=== PATIENT | male | born 1960 | race Caucasian/White ===

== ENCOUNTER 2016-10-16 18:34 | Inpatient (IN) | payer MEDICARE, MEDICAID ==
[2016-10-16 18:37] VITALS: BMI 18.8
[2016-10-16] MEDS ORDERED: Morphine 4 mg/ml ISec IVP STA (19:39)
[2016-10-16 19:55] LABS: ADD MANUAL DIFF? NO
[2016-10-16 20:06] LABS: BASO # 0.03 K/mm3 (0.0-2.0); BASO % 0.5 % (0.0-3.0); EOS # 0.1 (0.0-0.7); EOS % 1.5 % (1.5-5.0); GRAN # 3.41 (1.4-6.5); GRAN % 58.1 % (50.0-68.0); HEMATOCRIT 37.8 % (42.0-52.0); LYMPH # 1.9 (1.2-3.4); LYMPH % 31.9 % (22.0-35.0); MEAN CORPUSCULAR HEMOGLOBIN 31.6 pg (25.0-35.0); MEAN CORPUSCULAR HGB CONC 34.4 g/dl (31.0-37.0); MEAN PLATELET VOLUME 9.3 fl (7.0-11.0); MONO # 0.5 (0.1-0.6); PLATELET COUNT 278 10^3/uL (120.0-450.0); RED CELL DISTRIBUTION WIDTH 13.9 % (11.5-14.5); WHITE BLOOD COUNT 5.9 10^3/ul (4.5-11.0)
[2016-10-16 20:12] LABS: INR 0.95 (0.93-1.08); PARTIAL THROMBOPLASTIN TIME 32.1 Seconds (23.7-30.8)
[2016-10-16 20:18] LABS: ALB/GLOB RATIO 1.3 (1.1-1.8); ALKALINE PHOSPHATASE 80 U/L (38-133); ALT/SGPT 32 U/L (7-56); AST/SGOT 25 U/L (15-59); BILIRUBIN,TOTAL 0.8 mg/dL (0.2-1.3); BLOOD UREA NITROGEN 15 mg/dL (7-21); CALCIUM 9.2 mg/dL (8.4-10.5); CARBON DIOXIDE 28 mmol/L (21-33); CHLORIDE 93 mmol/L (98-107); GFR AFRICAN-AMERICAN > 60; GLUCOSE,RANDOM 98 mg/dL (70-110); SODIUM 129 mmol/L (132-148); TOTAL PROTEIN 7.5 g/dL (5.8-8.3)
[2016-10-16] MEDS ORDERED: Morphine 4 mg/ml ISec IVP PRN (21:43)
--- NOTE | 2016-10-16 23:09 | CON ---
DATE: 10/16/2016 Hospital visit on emergency basis with the patient to be transferred to the intensive care unit. For Dr. Leary. CHIEF COMPLAINT: Neck pain. HISTORY OF PRESENT ILLNESS: The patient is a 56-year-old male seen in the Emergency Room, resting in a gurney with family at the bedside reporting initially 10/10 pain, now 8/10 pain to the posterior n swathi. He reports the pain has worsened in the recent past with the patient's CT scan of the neck, als o C-spine and chest, abdomen and pelvis done earlier today by Dr. Fermin showing an invasive mass to the right posterior lung apex with bony destruction of the adjacent T2-T3 vertebral body posterior el ements as well as adjacent ribs with a mass having potential for compression of the spinal cord, left adrenal mass, possible metastatic lesions with the CT of the chest showing destructive mass to right lung apex destroys a portion of the T2-T3 vertebral bodies, posterior elements and threads of the sp inal cord, severe spinal stenosis at C4-C5. With this, the patient was seen by Dr. Fermin and the ergency Room physician with analgesics given for his pain, which brought the pain from a 10/10 to an 8/10 he reports. With this, he is otherwise without loss of function. He was advised that there is suspicious findings on the scans with recommendations for the patient to be at strict bed rest until further evaluation with Dr. Dixon, neurosurgeon, and other consultants are obtained. ALLERGIES: PENICILLIN. MEDICATIONS: He denies taking any medication at this time. PAST MEDICAL HISTORY: Significant for plate placed to the lower back 8 years ago in [place] with a po sterior neck procedure in the past, approximately 9 years ago, he does not remember where with his ri ght shoulder also being repaired, status post trauma years ago. Otherwise, denies any significant [facility] medical history. 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 Denies al cohol use, with sister and family members at the bedside. Otherwise, noncontributory. REVIEW OF SYSTEMS: Essentially negative to questioning except as above. PHYSICAL EXAMINATION: VITAL SIGNS: Temperature 98.3, pulse 94, respirations 16, blood pressure 138/84 with a pulse ox 97%. HEENT: Unremarkable. NECK: Supple. HEART: Regular rate. LUNGS: Clear. ABDOMEN: Soft, nontender. EXTREMITIES: No edema. SKIN: Warm, dry and clear. NEUROLOGIC: Awake, alert, and oriented x3 with equal publication manager to the hands bilaterally and toes wiggle f reely. LABORATORY DATA: The patient's labs were done, white blood cell count of 5.9, hemoglobin 13.0, hemat ocrit 37.8, platelet count of 278,000 with a chem metabolic panel showing a sodium of 129, chloride o f 93, otherwise normal chem panel with an INR 0.9. The patient's scans were as described above. They were done earlier today and are not on his Emergen cy Room panel. One has to use selected visits for the earlier testing to be reported on the computer . ASSESSMENT: Destructive mass, right lung apex with bony destruction T2-T3 vertebral bodies, rule out cord compression, rib destruction, left adrenal mass, rule out metastatic lesion, spinal stenosis se angélica C4-5, fusion of C5-C6. Positive smoker. PLAN: After conversation with Dr. Leary, Dr. Fermin and Dr. Lima, Emergency Room physician, and Dr. Booker, neurology, will ask for a stat neurosurgical consult with Dr. Dixon. We will begin IV Decadron 4 mg IV q. 6 hours. We will also give morphine for his pain 6 mg IV q. 4 p.r.n., Pepcid 20 mg p.o. b.i.d. We will also start Lyrica 75 mg p.o. t.i.d. as per Dr. Booker's recommendation. We will also ask for consult with ____ radiation oncology along with Dr. Matthew Booth for potential b iopsy although the patient reports he does not want a biopsy done at this time. He may reconsider. We will monitor clinically and with labs. We will check a CEA value on labs drawn in the morning. P rognosis for this patient is guarded. Recommend strict bed rest until evaluation by neurosurgeon. Reagan Antoine MD cc: [phone] TT: 10/16/2016 23:08:42 Confirmation # [id number] Dictation # [id number] jn
[2016-10-17] MEDS ORDERED: Morphine 4 mg/ml ISec IVP STA (04:15)
[2016-10-17] MEDS ORDERED: Morphine 4 mg/ml ISec ONE ×2 (04:34→09:11)
--- NOTE | 2016-10-17 07:27 | RAD ---
HISTORY: pain COMPARISON: CT scan earlier same day FINDINGS: LUNGS: There is a right apical lung mass with bony destruction which was demonstrated on the earlier CT. This is more difficult to appreciate on plain film PLEURA: No significant pleural effusion identified, no pneumothorax apparent. CARDIOVASCULAR: Normal. OSSEOUS STRUCTURES: No significant abnormalities. VISUALIZED UPPER ABDOMEN: Normal. OTHER FINDINGS: None. IMPRESSION: Right apical lung mass
--- NOTE | 2016-10-17 15:05 | CON ---
DATE: 10/17/2016 REASON FOR CONSULTATION: Neck and right arm pain. HISTORY OF PRESENT ILLNESS: The patient is a 56-year-old gentleman who states that in April, he b haley to get pain in the right side of his neck. No antecedent trauma. It has progressed to involve pain and some numbness going down the right side of his back to a little below the scapular area. He is also complaining of burning going towards his shoulder and into his upper arm. He states he has numbness in the right hand as well, more towards the thumb and index finger than the little finger si de. No complaints whatsoever relative to the left arm. No complaints with his legs either. He stat es he was living in [place] at the time, and he had some x-rays or studies done. Evidently, he is now here in [facility], and this is his first time in the hospital to treat these complaints. PAST MEDICAL HISTORY: He denies. MEDICATIONS: He states the only medication he has been on is ibuprofen and tramadol, but neither is really helping his pain. ALLERGIES: HE STATES HE IS ALLERGIC TO PENICILLIN. PHYSICAL EXAMINATION: He moves his neck reasonably well, but again, complains of pain on the right s chacho. He moves both upper extremities. His sensation is decreased to touch, more so over the right i ndex finger compared to the left, and then not as much of a difference over the middle finger, and no difference whatsoever over the little finger to light touch. 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 He has decent motor strength, but gives way to resistance on th e right side. No Ventura's noted. No hyperreflexia. Good distal pulses. The system was down, but I went down to the MRI suite to review the films. There is a large paraspin al mass extending from behind C6 down to behind T2. At the C6 level, it is completely outside the po sterior elements. Towards the bottom of C7, it starts to erode into the posterior lamina and the spi nous process on the right side, and then at T1 and T2 into the pedicle and body, but no cord compress ion to speak of. He has changes from his old anterior cervical diskectomy and fusion that was done a t C5-C6. There are changes in particular at C4-C5 with what appears to be broad-based disk causing s ome flattening of the cord at that level. Some lesser changes below at the C6-C7 level. Nothing at all on the left side. IMPRESSION: Paraspinal mass that reportedly is from the apex of the lung. 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 I would think if this were strictly from antici pated changes above and below his previous fusion in the neck, then as those changes appear to be bro adly symmetrical, I would not expect him to have strictly unilateral symptoms. He appears to be comp letely unaware of the diagnosis here, so that certainly a CT-guided biopsy could be done on this mass if a diagnosis is needed, and probable treatment at this time. As the left side of the spine is com pletely intact, there are no issues at this point with instability requiring fixation and fusion. Al so, there is nothing really to decompress here surgically in terms of trying to debulk tumor or do an ything around the brachioplexus without risking further injury. We will follow along with you as needed. Thank you for allowing us to participate in the care of your patient. Elias Feng MD cc: [phone] TT: 10/17/2016 12:46:33 Confirmation # [id number] Dictation # [id number] robert
--- NOTE | 2016-10-17 15:05 | MRI ---
PROCEDURE: MR CERVICAL SPINE WITHOUT CONTRAST HISTORY: lung cancer with affected spine COMPARISON: CT scan 10/16/2016 and MRI of the thoracic spine 10/17/2016 TECHNIQUE: Multiecho multiplanar sequences were performed through the cervical spine without the use of intravenous contrast. FINDINGS: Normal lordotic curvature. Craniocervical junction unremarkable. Vertebral body heights preserved. Normal cervical cord. C2-C3: No disc herniation, spinal canal stenosis or neural foraminal narrowing. C3-C4: There is a moderate size central disc protrusion seen best on image 10 series 5 C4-C5: There is a large disc bulge in osteophytic ridge which produces a severe degree of spinal stenosis with some flattening of the cord seen on image 14 series 5. C5-C6: Fusion at this level with no foraminal or central stenosis C6-C7: Disc bulge or broad-based central protrusion. C7-T1: Mass in the right lung apex that invades the adjacent T1 and T2 vertebral bodies as well as the right-sided pedicles and lamina with invasion of the right spinal erector muscles up to the C6 level. OTHER FINDINGS: None. IMPRESSION: Severe spinal stenosis at C4-5 above the level of fusion. Moderate size central disc protrusion at C3-4. Disc bulge or broad-based protrusion at C6-7. Mass in the right lung apex that invades the adjacent T1 and T2 vertebral bodies as well as the right-sided pedicles and lamina with invasion of the right spinal erector muscles up to the C6 level.
--- NOTE | 2016-10-17 15:05 | MRI ---
PROCEDURE: MR THORACIC SPINE WITHOUT CONTRAST HISTORY: lung cancer with metsto the spine COMPARISON: CT 10/16/2016 TECHNIQUE: Multiecho multiplanar sequences were performed through the thoracic spine without the use of intravenous contrast. FINDINGS: ALIGNMENT: Normal thoracic spinal alignment. Normal thoracic kyphosis. VERTEBRA: As noted on yesterday's CT there is a destructive mass in the right lung apex that invades the T1 and T2 vertebral bodies as well as the right-sided pedicles and lamina. This obliterates the right-sided foramen at these levels. However the spinal canal is preserved and there is no evidence of cord compression. Spinal fluid can be seen around the cord. The mass also extends superiorly invading the right-sided erector muscles of the spine up to this C6 level MARROW: As above PARASPINAL SOFT TISSUES: As above CORD: Unremarkable thoracic cord. No volume loss, signal abnormality or syrinx. DISCS: No disc herniation, spinal canal stenosis, or neuroforaminal narrowing. OTHER FINDINGS: None. IMPRESSION: Mass in the right lung apex that invades the adjacent T1 and T2 vertebral bodies as well as the right-sided pedicles and lamina with invasion of the right spinal erector muscles up to the C6 level. No evidence of cord compression
--- NOTE | 2016-10-17 15:06 | CARD ---
APPROVED REPORT EKG Measurement Heart [id number] <Conclusion> Normal sinus rhythm Rightward axis Borderline ECG
[2016-10-17] MEDS ORDERED: Levalbuterol 0.63 MG/3 ML Inhal Soln UD ONE (16:17)
--- NOTE | 2016-10-17 17:59 | CON ---
DATE: 10/17/2016 REFERRING PHYSICIAN: Dr. Fermin. REASON FOR CONSULT: Chest pain. HISTORY OF PRESENT ILLNESS: This is a 56-year-old gentleman getting a diagnosis of neck tumor with r ight upper extremity pain and back pain, was told has a compression fracture. Mild cough and shortne ss of breath. Has cancer lung or neck. There is no nausea, no vomiting, no diarrhea. No leg p ain or leg swelling. PAST MEDICAL HISTORY: Cancer, chronic obstructive lung disease. SOCIAL HISTORY: Ex-smoker. Denies any alcohol use. FAMILY HISTORY: No significant family history of cardiopulmonary disease. ALLERGIES: "BENSALAN"; I guess it is PENICILLIN probably. MEDICATIONS: On arrival, he was on Decadron and morphine. REVIEW OF SYSTEMS: No headache, no rhinitis. Has neck pain, shoulder pain, right-sided chest pain. Mild cough, shortness breath. No nausea, no vomiting, no diarrhea. No leg pain or leg swelling, no dysuria. PHYSICAL EXAMINATION: GENERAL: She is lying in the bed, mild distress secondary to pain. VITAL SIGNS: Temperature is 98, heart rate is 74, respiratory rate is 20, blood pressure 125/86, pul se ox 97% on nasal cannula. HEENT: Moist mucous membranes. Small oral cavity. NECK: Supple. No JVD. LUNGS: Has a fair airflow, decreased breath sounds on the right lung. HEART: S1 and S2. ABDOMEN: Soft, nontender. No organomegaly. EXTREMITIES: There is no edema. NEUROLOGIC: Awake, alert, follows simple commands. EKG RESULTS: EKG showed normal sinus rhythm, with a right bundle branch block. LABORATORY AND X-RAY DATA: No labs or x-ray reports available at this time. IMPRESSION AND PLAN: Possibly lung cancer. Chronic obstructive lung disease. Already seen by radia tion oncology. Getting pain medication and steroids. We will add inhaled bronchodilator. Gastric p rophylaxis. Deep vein thrombosis prophylaxis. Follow up labs for the morning orders. Continue pain medication. Will follow with you. Elisabet Pelaez MD cc: [phone] TT: 10/17/2016 17:58:15 Confirmation # [id number] Dictation # [id number]
--- NOTE | 2016-10-17 19:12 | CP.PCM.CON ---
<Savanah Reed - Last Filed: 10/18/16 10:14> History of Present Illness - History of Present Illness History of Present Illness: Resident ICU Consult Note for Dr. Hugo 56 year old [place]ian male with past medical history of tobacco abuse presents to [facility] for neck and back pain. Patient was sent from PMD Dr. Fermin to ED for ongoing management. Patient reports his neck and back pain started 3 years ago and it suddenly became worse in April 2016. The pain is located at right side of the neck radiates to right shoulder and left lower back. Patient had outpatient CT cervical and CT chest/abdomen/pelvis today and found to have destructive mass in the right lung apex that destroys a portion of the T2 and T3 vertebral bodies and posterior elements as well as adjacent ribs. The extend of bony destruction has the potential for spinal cord compression. Imaging studies findings are consistent with an invasive lung malignancy. Patient also complains of having left finger tips numbness and tingling sensations. Patient had an unintentional 7 pounds weight loss in past 3 months. Denies fever, chills , shortness of breath, chest pain, abdominal pain, nausea, vomiting, urinary or fecal incontinence. PMD: Dr. Fermin PMHx: tobacco abuse Allergy: penicillin Social: admits to smoke 1 pack a day for 40 years, denies alcohol or other drug use. Lives alone. 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 absent: Chills, Weakness (d) - EENT Eyes: As Per HPI. absent: Blind Spots (d), Blurred Vision, Pain Ears: As Per HPI. absent: Dizziness Nose/Mouth/Throat: As Per HPI. absent: Nose Pain, Sinus Pain, Dry Mouth - Cardiovascular Cardiovascular: As Per HPI. absent: Chest Pain, Chest Pain with Activity, Edema , Leg Edema - Respiratory Respiratory: As Per HPI. absent: Cough, Hemoptysis - Gastrointestinal Gastrointestinal: As Per HPI. absent: Constipation, Diarrhea, Nausea, Vomiting - Genitourinary Genitourinary: As Per HPI. absent: Hematuria, Urinary Hesitance, Urinary Urgency - Musculoskeletal Musculoskeletal: As Per HPI, Back Pain, Numbness (right finger tips), Tingling ( right finger tips) Additional comments: Right sided neck, shoulder and back pain - Integumentary Integumentary: As Per HPI, Dry Skin. absent: Pruritus, Rash - Neurological Neurological: As Per HPI, Tingling. absent: Confusion, Dizziness, Focal Weakness, Syncope - Psychiatric Psychiatric: As Per HPI. absent: Depression, Irritability - Endocrine Endocrine: As Per HPI - Hematologic/Lymphatic Hematologic: As Per HPI Past Patient History - Past Social History Smoking Status: Heavy Smoker > 10 Cigarettes Daily - CARDIAC Hx Cardiac Disorders: No - PULMONARY Hx Respiratory Disorders: No - NEUROLOGICAL Hx Neurological Disorder: No Hx Alzheimer's Disease: No - HEENT Hx HEENT Problems: No - RENAL Hx Chronic Kidney Disease: No - ENDOCRINE/METABOLIC Hx Endocrine Disorders: No - HEMATOLOGICAL/ONCOLOGICAL Hx Blood Disorders: No - INTEGUMENTARY Hx Dermatological Problems: No - MUSCULOSKELETAL/RHEUMATOLOGICAL Hx Musculoskeletal Disorders: No - GASTROINTESTINAL Hx Gastrointestinal Disorders: No - PSYCHIATRIC Hx Substance Use: No - SURGICAL HISTORY Hx Surgeries: Yes Meds Allergies/Adverse Reactions: Allergies Allergy/AdvReac Type Severity Reaction Status Date / Time Penicillins Allergy ANAPHYLAXIS Verified 10/16/16 18:37 - Medications Medications: Current Medications Acetaminophen (Tylenol 325mg Tab) 650 mg PO Q6H PRN PRN Reason: Fever >100.4 F Dexamethasone (Decadron Inj) 4 mg IVP Q6H BRIA Famotidine (Pepcid) 20 mg PO BID BRIA Morphine Sulfate (Morphine) 6 mg IVP Q4H PRN PRN Reason: Pain, severe (8-10) Last Admin: 10/16/16 23:11 Dose: 6 mg Pregabalin (Lyrica) 75 mg PO TID [facility] Physical Exam - Constitutional Appears: Non-toxic, No Acute Distress, Cachectic - Head Exam Head Exam: ATRAUMATIC, NORMAL INSPECTION, NORMOCEPHALIC - Eye Exam Eye Exam: EOMI, Normal appearance, PERRL - ENT Exam ENT Exam: Mucous Membranes Moist - Neck Exam Neck exam: Positive for: Normal Inspection, Tenderness. Negative for: Full Rom (limited range of motion due to pain) - Respiratory Exam Respiratory Exam: Clear to Auscultation Bilateral, NORMAL BREATHING PATTERN. absent: Rhonchi, Wheezes, Respiratory Distress - Cardiovascular Exam Cardiovascular Exam: REGULAR RHYTHM, RRR, +S1, +S2 - GI/Abdominal Exam GI & Abdominal Exam: Normal Bowel Sounds, Soft. absent: Tenderness - Extremities Exam Extremities exam: Positive for: normal capillary refill, normal inspection, pedal pulses present Additional comments: Limited range of motion on Right UE due to pain - Back Exam Back exam: NORMAL INSPECTION - Neurological Exam Neurological exam: Alert, Oriented x3 Additional comments: No focal neurological deficits - Expanded Neurological Exam Expanded Patient oriented to: person, place, time Neuro motor strength exam: Left Upper Extremity: 5, Right Upper Extremity: 5, Left Lower Extremity: 5, Right Lower Extremity: 5 - Psychiatric Exam Psychiatric exam: Normal Affect, Normal Mood - Skin Skin Exam: Dry, Intact, Warm Results - Vital Signs Recent Vital Signs: Last Vital Signs Temp 98.3 F 10/16/16 18:37 Pulse 94 H 10/16/16 18:37 Resp 16 10/16/16 18:37 BP 138/84 10/16/16 18:37 Pulse Ox 97 10/16/16 18:37 - Labs Result Diagrams: 10/18/16 06:45 10/18/16 06:45 Labs: Laboratory Results - last 24 hr 10/17/16 10/17/16 07:09 11:13 POC Glucose (mg/dL) 165 H 113 H Assessment & Plan - Assessment and Plan (Free Text) Assessment: 56 year old male with past medical history of tobacco abuse presents with neck and back pain. Patient had outpatient CT imaging done and was found to have possible spinal cord compression secondary to lung malignancy. He was sent to the ED by PMD for ongoing management. Patient's pain is being controlled by pain medications in the ED. Patient's vitals are stable. He is also hemodynamically stable with no focal neurological deficits appreciated on physical exam. Patient is not warranted for ICU level care at this time. <Renzo Hugo Q - Last Filed: 10/19/16 00:43> Meds - Medications Medications: Current Medications Acetaminophen (Tylenol 325mg Tab) 650 mg PO Q6H PRN PRN Reason: Fever >100.4 F Albuterol/Ipratropium (Duoneb 3 Mg/0.5 Mg (3 Ml) Ud) 3 ml IH [id number] BRIA Last Admin: 10/18/16 20:20 Dose: 3 ml Bisacodyl (Dulcolax) 5 mg PO TID PRN PRN Reason: costipation Dexamethasone (Decadron Inj) 2 mg IVP Q6 [facility] Last Admin: 10/18/16 17:05 Dose: 2 mg Docusate Sodium (Colace) 100 mg PO BID [facility] Last Admin: 10/18/16 17:05 Dose: 100 mg Enoxaparin Sodium (Lovenox) 40 mg SC DAILY [facility] PRN Reason: Protocol Last Admin: 10/18/16 11:03 Dose: Not Given Fentanyl (Duragesic) 1 patch TD Q72H [facility] Last Admin: 10/18/16 12:06 Dose: 1 patch Hydromorphone HCl (Dilaudid) 2 mg IVP Q3H PRN PRN Reason: Pain, moderate (4-7) Last Admin: 10/18/16 22:46 Dose: 2 mg Lidocaine (Lidoderm) 2 ea TD DAILY [facility] Last Admin: 10/18/16 12:07 Dose: 2 ea Morphine Sulfate (Morphine) 4 mg IVP Q4H PRN PRN Reason: MOD PAIN [4-7] Last Admin: 10/18/16 06:07 Dose: 4 mg Ondansetron HCl (Zofran Inj) 4 mg IVP Q6H PRN PRN Reason: Nausea/Vomiting Pantoprazole Sodium (Protonix Ec Tab) 40 mg PO ACB [facility] Last Admin: 10/18/16 08:07 Dose: 40 mg Polyethylene Glycol (Miralax) 17 gm PO DAILY [facility] Pregabalin (Lyrica) 75 mg PO TID [facility] Last Admin: 10/18/16 17:06 Dose: 75 mg Results - Vital Signs Recent Vital Signs: Last Vital Signs Temp 98.2 F 10/18/16 16:00 Pulse 75 10/18/16 18:00 Resp 18 10/18/16 16:00 BP 108/70 10/18/16 16:00 Pulse Ox 97 10/18/16 16:00 - Labs Result Diagrams: 10/18/16 06:45 10/18/16 06:45 Labs: Laboratory Results - last 24 hr 10/18/16 10/18/16 10/18/16 06:45 06:45 06:45 WBC 5.1 RBC 4.05 Hgb 12.6 L Hct 36.9 L MCV 91.1 MCH 31.1 MCHC 34.1 RDW 14.1 Plt Count 322 MPV 9.2 Gran % 74.2 H Lymph % (Auto) 22.5 Barry % (Auto) 3.3 Eos % (Auto) 0.0 L Baso % (Auto) 0.0 Gran # 3.78 Lymph # 1.2 Barry # 0.2 Eos # 0.0 Baso # 0.00 PT 10.4 INR 0.96 Sodium 132 Potassium 4.3 Chloride 95 L Carbon Dioxide 25 Anion Gap 16 BUN 19 Creatinine 0.6 Est GFR ( Amer) > 60 Est GFR (Non-Af Amer) > 60 Random Glucose 170 H Calcium 9.2 Total Bilirubin 0.6 AST 22 ALT 27 Alkaline Phosphatase 69 Total Protein 7.3 Albumin 4.1 Globulin 3.3 Albumin/Globulin Ratio 1.2 Attending/Attestation - Attestation I have personally seen and examined this patient.: Yes I have fully participated in the care of the patient.: Yes I have reviewed all pertinent clinical information: Yes Notes (Text): 10/19/16 00:41 I agree with the above note by the resident with the following additions/ exceptions: 56 y/o male had an outpatient CT of the neck and chest done which showed a large lung mass with bony vertebral destruction and spinal stenosis. ICU was consulted to evaluate whether the patient would require admission to the ICU. He did not have any focal or gross neurological defecits despite the concern for spinal canal stenosis. He was admitted to a regular floor and did not require aggressive ICU level care. Disposition discussed with the ED attending at length labs and images reviewed personally
[2016-10-17] MEDS ORDERED: Bisacodyl 5mg EC Tab PO PRN (19:26)
[2016-10-17] MEDS: Levalbuterol 0.63 MG/3 ML Inhal Soln UD IH SCH (20:38)
--- NOTE | 2016-10-17 21:58 | PN ---
DATE: 10/17/2016 This is the patient's hospital visit on the medical floor. For Dr. Leary. SUBJECTIVE: The patient is a 56-year-old male seen sitting up in bed with the patient's pain modestl y improved with analgesics, with neurosurgical consultation appreciated with other consultants' recom mendations to be followed. With this, the patient did have an MRI of the thoracic and cervical spine and those reports will be noted. The patient had 10/10 pain to the posterior neck, which is now imp roved with an invasive mass from the lung, invading the adjacent T2-T3 vertebral bodies with the dest ructive mass suspected to be lung cancer with consideration for encroachment on the spinal canal with consult with neurosurgeon appreciated. With this, the patient is now to be evaluated for radiation along with biopsy by Dr. Matthew Booth in the near future, with IV steroids continuing, with GI prophyl axis. He appears to be in no acute distress with pain medicines helping his pain. OBJECTIVE: PHYSICAL EXAMINATION: VITAL SIGNS: Not in the computer due to computer breakdown. The computers are not available today w ith the written reports showing that his vital signs are stable. HEENT: Unremarkable. NECK: Supple with tenderness to gentle palpation on the right side. HEART: Tachy rate, regular rhythm. LUNGS: Clear. ABDOMEN: Soft, nontender. EXTREMITIES: He is able to move both extremities with equal slate trimmer. NEUROLOGIC: Awake and alert with seeing eye dog trainer equal bilateral. SKIN: Otherwise, warm, dry and clear. LABORATORY DATA: The patient's labs were done; however, they are not available at present, with his most recent blood sugar at 113. We will await the labs for tomorrow morning as the computer system i s down. The patient did have a cervical spine MRI done today. It was read as severe spinal stenosis at C4-C5 above the level of fusion, moderate sized central disk protrusion at C3-4, disk bulge of broad-based protrusion C6-C7. Mass in the right lung apex that invades the adjacent T1-T2 vertebral body as wel l as the right side pedicles and lamina with invasion of the right spinal erector muscles up to C6 le sandra. He had a thoracic spine MRI done yesterday evening. It was read as mass in the right lung apex that invades the adjacent T1-T2 vertebral bodies as well as the right- sided pedicles and lamina wit h invasion of the right spinal erector muscles up to C6 level. No evidence of cord compression. 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 PLAN: The patient is to continue present medical regimen with the patient now convinced that a biops y would be prudent for followup treatment for the patient, as he was very hesitant initially to consi suze this. However, he is now convinced after conversation with Dr. Leary and Dr. Fermin. We will also await radiation consult with with neurosurgical consult appreciated. The patient's pa in medications were adjusted by Dr. Fermin along with Protonix recommended and, therefore, we will di scontinue his famotidine for gastrointestinal prophylaxis, as his steroids continue, with the patient to continue his present medical regimen with further treatment as indicated. We will monitor clinic ally and with labs. Reagan Antoine MD cc: [phone] TT: 10/17/2016 21:58:10 Confirmation # [id number] Dictation # [id number] dasha
[2016-10-17] MEDS: Morphine 4 mg/ml ISec IVP PRN (22:11)
[2016-10-17] MEDS: Dexamethasone 4 mg/1 ml IVP SCH (22:11)
[2016-10-18] MEDS: Dexamethasone 4 mg/1 ml IVP SCH ×4 (01:07→17:05)
[2016-10-18] MEDS: Morphine 4 mg/ml ISec IVP PRN ×2 (02:37→06:07)
[2016-10-18 06:59] LABS: ADD MANUAL DIFF? NO
[2016-10-18 07:12] LABS: GRAN # 3.78 (1.4-6.5); GRAN % 74.2 % (50.0-68.0); HEMATOCRIT 36.9 % (42.0-52.0); LYMPH # 1.2 (1.2-3.4); LYMPH % 22.5 % (22.0-35.0); MEAN CELL VOLUME 91.1 fL (80.0-105.0); MEAN CORPUSCULAR HEMOGLOBIN 31.1 pg (25.0-35.0); MEAN CORPUSCULAR HGB CONC 34.1 g/dl (31.0-37.0); MEAN PLATELET VOLUME 9.2 fl (7.0-11.0); MONO # 0.2 (0.1-0.6); MONO % 3.3 % (1.0-6.0); PLATELET COUNT 322 10^3/uL (120.0-450.0); RED CELL DISTRIBUTION WIDTH 14.1 % (11.5-14.5); WHITE BLOOD COUNT 5.1 10^3/ul (4.5-11.0)
[2016-10-18 07:18] LABS: INR 0.96 (0.93-1.08)
[2016-10-18 07:36] LABS: ALB/GLOB RATIO 1.2 (1.1-1.8); ALKALINE PHOSPHATASE 69 U/L (38-133); ALT/SGPT 27 U/L (7-56); AST/SGOT 22 U/L (15-59); BILIRUBIN,TOTAL 0.6 mg/dL (0.2-1.3); BLOOD UREA NITROGEN 19 mg/dL (7-21); CALCIUM 9.2 mg/dL (8.4-10.5); CARBON DIOXIDE 25 mmol/L (21-33); CHLORIDE 95 mmol/L (98-107); GFR AFRICAN-AMERICAN > 60; GLUCOSE,RANDOM 170 mg/dL (70-110); POTASSIUM 4.3 mmol/L (3.6-5.0); SODIUM 132 mmol/L (132-148); TOTAL PROTEIN 7.3 g/dL (5.8-8.3)
[2016-10-18] MEDS: Levalbuterol 0.63 MG/3 ML Inhal Soln UD IH SCH (07:47)
[2016-10-18] MEDS: Albuterol-Ipratrop 3 mg / 0.5 (3 ml) UD IH SCH ×3 (08:00→20:20)
[2016-10-18] MEDS: Pantoprazole 40 mg EC Tab PO SCH (08:07)
--- NOTE | 2016-10-18 08:17 | HP ---
REASON FOR ADMISSION: Lung mass affecting the spinal cord. HISTORY OF PRESENT ILLNESS: This is a 56-year-old male heavy smoker, has been complaining of back pa in in the thoracic area spine that has been worse since the last 6-8 months. The patient does have c hronic neck pain. However, his thoracic spine pain seems persistent, constant, and increasing in int ensity, progressively over the last 6-8 months. The patient has been seen in the office and was eval uated. His blood work came back within normal range; however, a CT scan of the chest and the spine s hows lung mass that is invading the spine, which could cause threat to his spinal cord. The patient did complain of severe pain, could not sleep. He has been using tramadol since I saw him 2 to 3 week s ago and it was some help but not completely. The patient was evaluated in the Emergency Room and w as admitted to medical floor and Decadron was given. ALLERGIES: PENICILLIN. MEDICATIONS: He takes tramadol. Otherwise, nothing PAST MEDICAL HISTORY: As I mentioned, has some neck procedures done in the past, does not know what it is. Otherwise, no significant history except for the smoking. FAMILY HISTORY: There is a strong family history of cancer. Sister of uterine cancer. Another patient from lymphoma and there are significant three members with cancer. REVIEW OF SYSTEMS: Essentially negative except severe back pain thoracic area region and also weight loss and inability to sleep secondary to pain. PHYSICAL EXAMINATION: Please be advised the history was done on 10/16/2016. VITAL SIGNS: Temperature 98.3, heart rate 94, blood pressure 138/84, respirations 16, saturation 97% . HEAD AND NECK: Normal. No JVD, no thyromegaly. CHEST: Clear. CARDIAC: First sounds and second sounds are normal. ABDOMEN: Soft, nontender. EXTREMITIES: No edema. SPINE: There is tenderness in the mid thoracic C-spine to the lower neck area. It is significantly tender and sensitive to touch in the mid thoracic spine. LABORATORY DATA: White count of 5.9, hemoglobin 16, hematocrit 37.8, platelets 278. His chemistry s odium 129, potassium 5, chloride 93, bicarb 28, BUN 15, creatinine 0.7. Liver function test is radha l. Blood sugar 165. Albumin and globulin normal. Albumin and globulin ratio is normal. CT of the chest, abdomen and pelvis was read by Dr. Lakhani on 10/16, the date of admission, and it shows there is a large mass in the posterior right lung apex that invades the chest wall, produces bony destructi on of T2 and T3 vertebral bodies and posterior element on the right side. There is invasion of spina l canal. The mass is 5 cm x 6 cm or more, 5.3 cm x 6.3 cm mass. IMPRESSION AND PLAN: This is 56-year-old male who came in with an intractable thoracic spine pain th at CT shows a lung mass and is metastatic for stage IV lung cancer. Will admit the patient for sever e intractable pain for possible cord compressions. Will give Decadron. Will get a thoracic surgeon, Dr. Dixon. Spoke to him, he will see the patient in the morning. Will order MRI for him for further evaluation in the morning. The case has been discussed with the patient in detail. Continue also current treatment and will give him bronchodilators. Dr. Leary consult, pulmonary consult, Sam Pelaez and will follow up clinically. Continue pain medicines. CURRENT MEDICATIONS: He was getting Colace, Decadron injection 2 mg IV followed by 4 mg IV q. 6 hour s, Dulcolax, Lyrica 75 mg t.i.d., morphine 4 mg IV every 4 hours, Protonix 40 mg p.o. daily, Tylenol, Xopenex, and also will add Lovenox 40 mg subQ daily. We will continue current treatment and will fo llow up clinically. Gary Fermin MD cc: [phone] TT: 10/18/2016 03:07:18 an
--- NOTE | 2016-10-18 08:17 | PN ---
DATE: 10/17/2016 HISTORY OF PRESENT ILLNESS: The patient seen on the medical floor. He is comfortable. He is restin g better than before. He slept good and pain relief with morphine was good. Is not short of breath, no chest pain at this time. Seen by Dr. Griffin, neurosurgeon, and by oncology consult. PHYSICAL EXAMINATION: VITAL SIGNS: Temperature 97.9, heart rate 78, blood pressure 116/79, respirations 20, saturation 100 %. HEAD AND NECK: Normal. No JVD, no thyromegaly. CHEST: Clear, good entry. CARDIAC: First and second sounds are normal. ABDOMEN: Soft, nontender. EXTREMITIES: No edema. NEUROLOGIC: Normal. Thoracic spine extremely tender to touch. LABORATORY DATA: Thoracic spine MRI shows a mass in the right lung base. Revealed adjacent T1 and T 2 vertebral bodies, as well as right-sided pedicles and lamina. of right spinal muscle u p to C6 level. No evidence of cord compression. IMPRESSION AND PLAN: 1. Stage IV lung carcinoma. Will continue for now. Decadron was tapered down gradually. Will get a lung biopsy and Dr. Matthew Booth consult. The patient will definitely need radiations. Will consid er radiation oncology consult and continue pain management as it is and hold off on any heparin now f or biopsy in the morning and will continue current management for now. 2. Chronic obstructive pulmonary disease. Continue inhaled bronchodilators. Continue current treatment. Follow up clinically. Gary Fermin MD cc: [phone] TT: 10/18/2016 02:01:29 Confirmation # [id number] Dictation # [id number] mn
[2016-10-18] MEDS ORDERED: Midazolam 2 MG/2 ML VIAL ONE (09:01)
[2016-10-18] MEDS ORDERED: Sodium Chloride 0.45% 1,000 ML IV SCH (09:45)
[2016-10-18] MEDS: Enoxaparin 40 mg Syringe SC SCH (11:03)
--- NOTE | 2016-10-18 11:54 | CT ---
PROCEDURE: CT guided right lung biopsy. HISTORY: Large destructive 7 cm right lung mass invading the posterior chest wall and thoracic spine. Probable malignancy. PHYSICIAN(S): Matthew Booth MD. TECHNIQUE: The relative risks and indications of the procedure were explained to the patient and consent obtained. The patient was placed prone on the CT scanner and preliminary images through the lung apices obtained. Conscious sedation and monitoring were provided throughout the procedure by a nurse. There is is destructive 7 cm lobulated mass involving the right 8 packs and posterior chest wall. The mass invades the upper thoracic spine with epidural extension. A right posterior approach was selected and the area prepped and draped in the usual sterile fashion. 1% Xylocaine was used to anesthetize the skin and soft tissues. A 17-gauge guiding needle was advanced into the 7 cm right chest wall mass. Its position was confirmed with CT. Using coaxial technique, multiple core biopsies were obtained. The postprocedure images show no evidence of significant hemorrhage. IMPRESSION: 1. CT-guided right lung/ chest wall biopsy as described above.
[2016-10-18] MEDS: HYDROmorphone 2 mg/ml ISec IVP PRN ×4 (12:07→22:46)
[2016-10-18] MEDS: Lidocaine 5% Patch TD SCH (12:07)
--- NOTE | 2016-10-18 12:46 | RAD ---
HISTORY: rt lung bx COMPARISON: 10/16/2016 FINDINGS: LUNGS: There is a right apical lung mass. There is no evidence of pneumothorax PLEURA: No significant pleural effusion identified, no pneumothorax apparent. CARDIOVASCULAR: Normal. OSSEOUS STRUCTURES: No significant abnormalities. VISUALIZED UPPER ABDOMEN: Normal. OTHER FINDINGS: None. IMPRESSION: No evidence of pneumothorax
[2016-10-18 19:27] VITALS: RESP 18
--- NOTE | 2016-10-18 19:48 | CON ---
DATE: 10/18/2016 CHIEF COMPLAINT: Right arm pain and neck pain. HISTORY OF PRESENT ILLNESS: A 56-year-old man who is a smoker with no significant past medical histo ry with a history of COPD, came in for right-sided neck pain without any trauma, progressed to involv ing pain and some numbness going down the right side of the back to a little below the scapular area. He said the pain was more of a burning sensation of the pain and going in towards his right shoulde r and into the upper arm. He states he has numbness as well and more towards the thumb and the index finger than the little finger. He states he time had x-ray studies done and he comes to the _ ____ complaining that these symptoms are for the first time. His MRI of his cervical spine showed se angélica spinal stenosis C4-C5 above the level of fusion, moderate sized central disk protrusion at C3-C4 and disk bulge broad based protrusion at C6-C7. There is a mass in the right apex that invades the adjacent T1 and T2 vertebral bodies, as well as the right-sided pedicles with lamina with invasion of the right spinal and rectal muscles up to the level of C6. There is no cord compression. He is cur rently on Decadron and he is on Lyrica for neuropathic pain, which I recommended. He is able to move the arm, but just slightly painful. He has a lung biopsy with Dr. Matthew Booth. He is undergoing ev aluation by oncology for possible lung cancer with invasion of the brachial plexus. PAST MEDICAL HISTORY: History of COPD. He is a smoker, chronic. SOCIAL HISTORY: Smokes 1 pack of cigarettes per day. Denies any ETOH abuse or illicit drug use. FAMILY HISTORY: Noncontributory. ALLERGIES: ALLERGIC TO BICILLIN I GUESS IS PENICILLIN. CURRENT MEDICATIONS: Reviewed via nurse's reconciliation sheet. REVIEW OF SYSTEMS: A 14-point review of systems is negative except for the HPI. PHYSICAL EXAMINATION: VITAL SIGNS: Temperature of 98, pulse rate of 77, blood pressure 125/80, respiratory rate of 14, and oxygen saturation 99% on room air. GENERAL: The patient is sitting up in bed in no acute distress. HEENT: Atraumatic, normocephalic. PERRLA. Extraocular muscles intact. NECK: Supple, no JVD, no adenopathy noted. LUNGS: Clear to auscultation. No adventitious sounds. HEART: S1, S2, normal rate and rhythm. No murmurs, rubs, or gallops. ABDOMEN: Soft, nontender, nondistended. Bowel sounds present. EXTREMITIES: No clubbing, no cyanosis. Peripheral pulses 2+ felt bilaterally. NEUROLOGIC: The patient is alert, oriented to person, place, month and year. Speech is fluent, with out any errors. Cranial nerves II-XII are intact. MOTOR: Moves all extremities equally except for mild decreased hand it web development consultant of the right hand. He has decreased sensation to touch and more on the right index finger when compared to the left. Otherwise , he has decent it web development consultant strength, a little bit stronger on the left than compared to the right. Deep te ndon reflexes 2+ throughout. SENSORY: Light touch and pinprick up to the calves bilaterally are normal. Vibration is intact. Pr oprioception is intact. COORDINATION: [id number] intact. GAIT: Deferred for now. LABORATORIES: Sodium is 132, potassium , chloride of 95, carbon dioxide 25, BUN of 19, creatini ne 0.6, random glucose 170. ASSESSMENT AND PLAN: This is a 56-year-old man, chronic smoker, history of COPD. He comes in with r ight-sided neck pain radiating down to the right shoulder and right arm with paresthesias, found to h ave a paraspinal mass in the apex of the lung, as well as severe spinal stenosis C4-C5 above the leve l of effusion, moderate sized central disk protrusion at C3-C4, disk bulge broad based protrusion at C6 and C7, mass in the right lung apex of the adjacent T1-T2 vertebral body, as well as the right-madhu ed pedicles with lamina invasion of the right spinal and rectal muscle up to the level of C6. Neuros urgery is on board. Both of us agree this is likely compression of his brachial plexus along the toñito ts at the area at this time, and therefore, he is getting that cervical pain and would recommend: 1. Decadron and medical management in terms of Lyrica 75 mg p.o. t.i.d. for neuropathic pain and con tinue with the results of his lung biopsy, to go ahead with oncology management for possible lung can cer. At this time, continue with current present medical management. The patient will need oncology management and pulmonary management and likely acute rehabilitation. Once again, thank you for this consult and followup, can reconsult us if any further question needs t o be answered. Of note, he has had an old anterior cervical diskectomy and fusion at C5-C6 done prior, which changes on the MRI are reflected upon. Thank you for allowing me to participate in the patient's care. Mathew Booker MD cc: [phone] TT: 10/18/2016 19:48:31 Confirmation # [id number] Dictation # [id number] mn
--- NOTE | 2016-10-18 20:37 | PN ---
DATE: 10/18/2016 REFERRING PHYSICIAN: Dr. Fermin. SUBJECTIVE: He is lying in the bed, sleepy, arousable. Had a lung biopsy done today. Still has rib cage pain. Breathing is better. No cough, no sputum production, no nausea, no vomiting, diarrhea. N o leg pain or leg swelling. OBJECTIVE: GENERAL: No acute distress. VITAL SIGNS: Temp is 98, heart rate is 78, respiratory rate is ____, blood pressure 125/80, pulse ox 99% on room air. HEENT: Moist mucous membranes. Crowded airway. NECK: Supple. No JVD. LUNGS: Has decreased breath sounds in the right lung. HEART: S1 and S2. ABDOMEN: Soft, nontender. No organomegaly. EXTREMITIES: There is no edema. NEUROLOGIC: Sleepy, arousable, follows simple commands. MEDICATIONS: He is on Colace 100 mg ____, Decadron 2 mg q. 6 hours, Dilaudid 2 mg q. 3 hours p.r.n., Dulcolax 5 mg q. 8 hours p.r.n., DuoNeb q. 6 hours, Duragesic patch q. 72 hours, Lidoderm patch to t he affected area, Lovenox 40 mg daily, Lyrica 75 mg 3 times a day, MiraLax 17 grams daily, morphine 4 mg q. 4 hours p.r.n., Protonix 40 mg daily, IV fluid half normal saline 80 mL per hour, Tylenol p.r. n., Zofran on a p.r.n. basis. LABORATORY DATA: Shows hemoglobin 12.6, hematocrit 36.9, WBC 5.1, platelet is 322. INR 0.96. Sodiu m 132, potassium 4.3, chloride 95, bicarbonate 25, BUN 19, creatinine 0.6, glucose 170, calcium is 9. 2. AST 22, ALT 27, alkaline phosphatase is 69, albumin is 4.1. Chest x-ray done shows a right apica l lung mass. There is no evidence of pneumothorax. IMPRESSION AND PLAN: Lung mass, what seems like metastatic disease to C4-C5 causing severe stenosis, moderate sized central disk protrusion at C3-C4 disk bulge and a broad based protrusion C6-C7, mass in the lung apex that invades adjacent T1 and T2 vertebrae with right-sided pedicles in lamina with i nvasion of the right spinal ____ muscle of the C8 level, chronic obstructive lung disease, pain statu s post lung biopsy. Agree with Dr. Fermin with the present management. Continue bronchodilator and pain management, gastric prophylaxis, deep venous thrombosis prophylaxis, radiation oncology and onco logy followup. Will follow with you. Elisabet Pelaez MD cc: [phone] TT: 10/18/2016 20:36:35 Confirmation # [id number] Dictation # [id number] rn
--- NOTE | 2016-10-18 20:48 | PN ---
DATE: 10/18/2016 The patient is in room 374, bed 1. The patient just came back from a CT-guided lung biopsy earlier this morning without any complication s. PROBLEMS: This is a 56-year-old male who has been having progressively worsening upper back pain rad iating to the shoulder and scapular area that was worsening over the last 6-8 months. 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 Because th e pain was getting worse and was not responding to tramadol that he was on as an outpatient, his PMD had ordered a CT of the chest and neck, which revealed a large mass in the right upper lobe of the mike ng, which was invading the adjacent vertebral bodies and the patient was admitted to the hospital for further management with a concern that there could be invasion of the spinal cord. Since admission to the hospital, the patient had rapidly MRI of the cervical and thoracic spine and a s noted on the MRI there is a destructive mass in the right lung with invasive T1 and T2 vertebral catherine dies, as well as the right-sided pedicles and lamina, right-sided foramina at these levels; how ever, the spinal canal is preserved and there is no evidence of cord compression. Spinal fluid can b e seen around the cord. The mass also extended superiorly invading the right side of erector m uscles of the spine up to the level of C6. There is no evidence of cord compression. The cervical s pine MRI shows moderate sized disk protrusion at C3-C4. There is also severe spinal stenosis at C4-C 5 above the level of fusion and of course there is a mass in the right lung apex that is extending in to the neural foramina and causing destruction of the T1 and T2 vertebral bodies. Since admission, the patient had been started on IV Decadron and seen by radiation oncology. He was been by neurosurgery and had been seen by us in preparation for what needs to be done. Rapidly cons ultation with interventional radiology was obtained, CT-guided biopsy was done and now we are waiting for the histologic diagnosis. The patient also got 2 doses of radiation yesterday and today early i n the morning. The patient is on PPI. SUBJECTIVE: The patient is examined in bed. He tells me that the pain in the back is radiating down to the shoulder into the scapula. On a pain scale of 0-10 is at least 9, sometimes 10. He is on mo rphine 4 mg IV q.4 hours, which is not helping him. I told him that we switch around the medicines s oon, though the pain is slightly better than when he first came into the hospital. The patient denie s any history of fevers, chills, nausea or vomiting. PHYSICAL EXAMINATION: GENERAL: The patient is awake, alert, and oriented, in distress because of the pain. HEENT: Head is normocephalic, atraumatic. Conjunctivae pale. Sclerae are anicteric. Pupils are eq ually reactive to light and accommodation. Examination of the oropharynx reveals no oropharyngeal le sions. The patient is able to eat without any significant problems such as swallowing issues. NECK: Supple. There is no adenopathy. No jugular venous distention is noted. Range of movements o f the neck is limited because of the recently noted findings. No JVD is noted. LUNGS: Are relatively clear to percussion and auscultation. His expiratory phase of breathing is pr olonged. CARDIOVASCULAR: Reveals S1 and S2 to be normal. No gallop or murmurs were. ABDOMEN: Soft, nontender. Liver and spleen not palpable. No organomegaly is noted. NEUROLOGIC: Higher functions are normal. No focal deficits are seen. EXTREMITIES: The patient is able to move all 4 extremities including the upper extremities. There i s no neurologic compromise. No focal deficits are noted at this time. EKG shows normal sinus rhythm with a right bundle branch. LABORATORY DATA: From today were reviewed. White count is 5.1, hemoglobin 12.6, hematocrit 36, plat elet count is 322,000. MEDICATIONS: Were reviewed. He is on Colace 100 b.i.d. and Decadron 2 mg q.6 hours. He is on morph ine 4 mg, which is being switched over to Dilaudid. He is on Dulcolax 5 mg p.o. t.i.d. for constipat ion and DuoNeb 3 mL inhaled q.6 hours. He is on Lovenox 40 mcg subQ daily, Lyrica 75 mg t.i.d., and is on MiraLax 17 grams p.o. daily. He is on Protonix 40 mg p.o. daily, Tylenol p.r.n. and Zofran 4 m g IV q.6 hours p.r.n. for nausea and vomiting. 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 The patient has been started empirically on radiation pending biopsy. Once we have a hist ologic diagnosis of cancer, we will proceed with further management. If it is an adenocarcinoma, we will send for further molecular testing besides EGFR, gene and PD-L1, we will also check for BR AF mutation as well. If it is squamous cell carcinoma, we will also in addition be checking for EGFR and will check for PD-L1, which will be checked in the adenocarcinoma with ID as well. Depending on the molecular testing we will be able to guide further therapy. The patient definitely will need to be considered for systemic therapy in order to control the disease. I discussed in detail my findings with the patient. The patient was initially very hesitant for even to go to a biopsy. He is gradually understanding the fact that if he has to get better, he has to l isten to our recommendations. I told him that I was going to post exchange manager the pain medication from mo rphine to Dilaudid 2 mg IV q.4 hours. He has also going to get a Duragesic patch 50 mcg per hour q.7 2 hours. Along with this, he is also going to get lidocaine patches topically to the right side post eriorly over the scapula with the erector spinal muscles are being affected by tumor infiltration. H opefully, with this combination, he should feel better and his pain scale on a scale of 0-10 will go from a 9 down to a manageable level of 3 or 4. We may have to start him on systemic chemotherapy whi le he is in the hospital and I explained this fully to the patient. The patient will also need to diaz ve a venous access in order for us to continue to manage his care and treatments. I have explained a ll the findings with Dr. Fermin in great detail as well. Routine post exam instructions have been gi derek to the patient. Lizzie Leary MD cc: [id number] TT: 10/18/2016 19:09:04 Confirmation # [id number] Dictation # [id number] dn 10/18/2016 19:47:47
[2016-10-19] MEDS: HYDROmorphone 2 mg/ml ISec IVP PRN ×4 (01:55→12:37)
[2016-10-19] MEDS: Albuterol-Ipratrop 3 mg / 0.5 (3 ml) UD IH SCH ×3 (02:48→13:42)
[2016-10-19] MEDS: Dexamethasone 4 mg/1 ml IVP SCH ×3 (06:01→12:37)
[2016-10-19 08:08] VITALS: BP 106/62; PULSE 77; TEMP 98.1; O2SAT 96
[2016-10-19] MEDS ORDERED: POLYETHYLENE GLYCOL 3350 17 GM/Dose PACKET PO SCH (10:00)
[2016-10-19] MEDS: Lidocaine 5% Patch TD SCH (10:24)
[2016-10-19] MEDS: Enoxaparin 40 mg Syringe SC SCH (10:25)
[2016-10-19] MEDS: Pantoprazole 40 mg EC Tab PO SCH (10:26)
--- NOTE | 2016-10-20 08:12 | PN ---
DATE: 10/18/2016 The patient status post lung biopsy, seems doing okay. Pain controlled with current medications, Dil audid and Duragesic patch. Also, patient has some pain at the site of the biopsy, which seems helpfu l with the also Lidoderm patch. No respiratory distress, no nausea. He slept okay last night. PHYSICAL EXAMINATION: VITAL SIGNS: Temperature 98.2, heart rate 77, blood pressure 108/70, respirations 18, saturation 97% . HEAD AND NECK: Normal. No JVD, no thyromegaly. CHEST: Clear, good air entry. CARDIAC: First sounds, second sound normal. ABDOMEN: Soft, nontender. EXTREMITIES: No edema. NEUROLOGIC: Normal. SPINE: There is tenderness in the mid thoracic area. LABORATORY DATA: White count 5.1, hemoglobin 12.6, hematocrit 36.9, platelets 322. His chemistry sh owed sodium 132, potassium 4.3, chloride 95, bicarb 25, BUN 19, creatinine 0.6, blood sugar 170. Jenna er function test is normal. IMPRESSION: 1. Lung cancer with extension and spread to the bone with destructive lesions on the thoracic spine, status post lung biopsy. We will continue analgesia. Continue on Duragesic patch, Lidoderm patch a nd will follow up. 2. Chronic obstructive pulmonary disease. The patient is stable, no distress. Continue inhaled bro nchodilators. 3. The patient has some anxiety. We will continue assurance. We will reduce the Decadron since the re is no cord compression. We will reduce it from 4 mg every 6 hours to 2 mg and gradually we will t aper ti down. Continue gastrointestinal and deep vein thrombosis prophylaxis. Continue morphine, Dilaudid p.r.n. a nd patient seems doing well. Also, we will add Lyrica t.i.d. Gary Fermin MD cc: [phone] TT: 10/20/2016 08:11:07 Confirmation # [id number] Dictation # [id number] en
--- NOTE | 2016-10-20 08:27 | PN ---
DATE: 10/19/2016 REFERRING PHYSICIAN: Dr. Fermin SUBJECTIVE: The patient is lying in the bed, head at 45 degrees. Night was unremarkable. Overall, feels better, still has upper back bony pain. No cough, no sputum production. No nausea, no vomitin g, diarrhea. No leg pain or leg swelling. OBJECTIVE: GENERAL: No acute distress. VITAL SIGNS: Temp is 98, heart rate is 77, respiratory rate is 20, blood pressure 106/62, pulse ox 9 6% on room air. HEENT: Moist mucous membranes. No ulcer or oral thrush noted. NECK: Supple. No JVD. LUNGS: Have decreased sounds on the right lung. HEART: S1 and S2. ABDOMEN: Soft, nontender. No organomegaly. EXTREMITIES: There is no edema. NEUROLOGIC: Awake, alert, follows simple command. MEDICATIONS: She is on Colace 100 mg twice a day, Decadron 2 mg q. 6 hours, Dilaudid 2 mg IV q. 3 ho urs p.r.n., Dulcolax 5 mg 3 times a day p.r.n., DuoNeb q. 6 hours, Duragesic patch q. 72 hours, Lidod erm patch daily, Lovenox 40 mg subQ daily, Lyrica 75 mg 3 times a day, MiraLax 17 grams daily, morphi ne 4 mg q. 4 hours p.r.n., Protonix 40 mg daily, Tylenol p.r.n., Zofran 4 mg q. 6 hours p.r.n. LABORATORY DATA: Shows no new lab is available since yesterday. IMPRESSION AND PLAN: Lung mass, probably lung cancer with metastatic disease to the bone, mass of th e lung invading adjacent T1 and T2 vertebrae with right side pedicle and lamina with invasion of the right spinal muscles, chronic obstructive lung disease, status post lung biopsy. Continue pain manag ement, p.o. and inhaled bronchodilator. Gastric prophylaxis. Sequential compression device lo wer extremities. Oncology followup, also radiation oncology followup. Thank you and will follow with you. Elisabet Pelaez MD cc: [phone] TT: 10/20/2016 08:26:36 Confirmation # [id number] Dictation # [id number] en
--- NOTE | 2016-10-20 14:57 | DS ---
A 56-year-old male admitted with intractable spine pain. CT finding shows a lung mass 5 cm extending to his spine with destructive bony lesions. The patient has had a biopsy done, results still pendin g. Analgesia and pain control has been done. The patient seems better, stable and started on radiat ion therapy. Seen by oncology, Dr. Leary and seen by neurosurgeon, ____ . The patient seems o therwise stable. I discussed the case with the patient; stages, the prognosis and will follow up cli nically. At this time, patient will need more radiation therapy. He is generally weak. He needs mo re pain medicine, combination of therapeutic regimen that will need probably a transitional care unit for continuation of therapy. PHYSICAL EXAMINATION ON 10/19: VITAL SIGNS: Temperature 98.1, heart rate 77, blood pressure 106/62, respirations 18, saturation 96% . HEAD AND NECK: Normal. No JVD, no thyromegaly. CHEST: Clear, good entry. CARDIAC: First and second sounds are normal. ABDOMEN: Soft, nontender. EXTREMITIES: No edema. NEUROLOGIC: Normal. IMPRESSION: 1. Lung cancer, large mass 5 cm, with extension to the spine and destruction of the vertebra as per MRI, no spinal cord compression. 2. Chronic obstructive pulmonary disease. 3. Chronic intractable spine pain. PLAN: To discharge the patient to TCU for continuation of morphine, Dilaudid, Lyrica and Duragesic p atch. Also, Lidoderm patch. Continue gastrointestinal and deep vein thrombosis prophylaxis. The danny jacques also will need Decadron, continue him on bronchodilators. Will follow up clinically. Gary Fermin MD cc: [phone] TT: 10/20/2016 14:56:48 jn
== END 2016-10-19 14:47 | DRG 181 ==
LOC: ED 18:34 → ERH 20:30 → 3RSO 10-17 03:25
PROVIDERS: ADMIT Internal Medicine; ATTEND Internal Medicine
PROC: 0BBK3ZX Excision of Right Lung, Percutaneous Approach, Diagnostic (ICD-10-PCS; principal; 2016-10-18 09:00)
DX: C34.91 Malignant neoplasm of unspecified part of right bronchus or lung (principal); R64 Cachexia; Z68.1 Body mass index [BMI] 19.9 or less, adult; M48.02 Spinal stenosis, cervical region; J44.9 Chronic obstructive pulmonary disease, unspecified; M54.6 Pain in thoracic spine; F17.210 Nicotine dependence, cigarettes, uncomplicated; I45.10 Unspecified right bundle-branch block; F41.9 Anxiety disorder, unspecified; G54.0 Brachial plexus disorders; Z88.0 Allergy status to penicillin

== ENCOUNTER 2016-10-19 14:47 | Inpatient (IN) | payer OTHER, MEDICAID ==
[2016-10-19] MEDS ORDERED: Bisacodyl 5mg EC Tab PO PRN (15:29)
[2016-10-19 15:30] VITALS: BMI 19.3
[2016-10-19] MEDS: Morphine 4 mg/ml ISec IVP PRN ×2 (16:52→23:36)
[2016-10-19] MEDS: Dexamethasone 4 mg/1 ml IVP SCH ×2 (19:39→23:37)
[2016-10-19] MEDS: HYDROmorphone 2 mg/ml ISec IVP PRN (19:43)
[2016-10-19] MEDS: Albuterol-Ipratrop 3 mg / 0.5 (3 ml) UD IH SCH (20:31)
[2016-10-20] MEDS: Albuterol-Ipratrop 3 mg / 0.5 (3 ml) UD IH SCH ×4 (02:03→20:13)
[2016-10-20] MEDS: HYDROmorphone 2 mg/ml ISec IVP PRN ×4 (02:41→22:04)
[2016-10-20] MEDS: Dexamethasone 4 mg/1 ml IVP SCH ×4 (05:23→23:57)
[2016-10-20] MEDS: Enoxaparin 40 mg Syringe SC SCH (05:23)
[2016-10-20] MEDS: Morphine 4 mg/ml ISec IVP PRN ×4 (05:30→23:56)
[2016-10-20] MEDS: Pantoprazole 40 mg EC Tab PO SCH (05:43)
[2016-10-20] MEDS ORDERED: Pantoprazole 40 mg EC Tab PO SCH (07:30)
[2016-10-20] MEDS: Bisacodyl 5mg EC Tab PO SCH ×3 (09:11→17:25)
[2016-10-20] MEDS: Lidocaine 5% Patch TD SCH ×2 (09:12→10:00)
[2016-10-20] MEDS: POLYETHYLENE GLYCOL 3350 17 GM/Dose PACKET PO SCH (09:14)
[2016-10-20] MEDS ORDERED: Enoxaparin 40 mg Syringe SC SCH (10:00)
--- NOTE | 2016-10-20 18:21 | CON ---
DATE: 10/20/2016 PULMONARY CONSULTATION REFERRING PHYSICIAN: Dr. Fermin. REASON FOR CONSULT: Probably has a lung cancer with metastatic disease and chronic obstructive lung disease. HISTORY OF PRESENT ILLNESS: This is a 56-year-old gentleman who recently stopped smoking, found to h ave a right chest trauma, came into Emergency Room with upper back and mid back pain, found to have a large tumor in the chest invading the spine, seen by oncology services and oncology radiation, start ed on pain medication, bronchodilator. Presently, admitted to [facility] for continued care. PAST MEDICAL HISTORY: Obstructive lung disease, recently diagnosed with lung tumor. SOCIAL HISTORY: Denies any alcohol use, an ex-smoker. FAMILY HISTORY: No significant cardiopulmonary disease reported. ALLERGIES: QUESTIONABLE TO PENICILLIN. MEDICATIONS: He is on morphine, Decadron, Colace, Dilaudid, Dulcolax, DuoNeb, Duragesic patch, Lidod erm patch, Lovenox 40 mg subQ daily, Lyrica 50 mg 3 times a day, MiraLax 17 grams daily, Protonix 40 mg daily, Tylenol p.r.n. basis, Zofran on a p.r.n. basis. REVIEW OF SYSTEMS: No headache, no rhinitis. Has cough, shortness of breath and right-sided chest p ain and upper back pain. No nausea, no vomiting, diarrhea. No leg pain or leg swelling. PHYSICAL EXAMINATION: GENERAL: Lying in bed, in no acute distress. VITAL SIGNS: Temp is 98, heart rate is 60, respiratory rate is 18, blood pressure 109/70. HEENT: Moist mucous membrane. No ulcer or thrush noted. NECK: Supple. No JVD. LUNGS: Has decreased breath sounds on the right lung. HEART: S1 and S2. ABDOMEN: Soft, nontender. No organomegaly. EXTREMITIES: There is no edema. NEUROLOGIC: Awake, alert, follows simple commands. LABORATORY DATA: Shows hemoglobin 12.6, hematocrit 36.9, WBC 5.1. INR 0.96. Sodium 132, potassium 4.3, chloride 95, bicarbonate 25, BUN 19, creatinine 0.6, glucose 170. LFTs are okay. IMPRESSION AND PLAN: Lung mass, probably is cancer with metastatic disease to bone and tumor invadin g just in T1 and T2 vertebra with right-sided pedicle and lamina over the invasion, right spinal musc le involvement, chronic obstructive lung disease, status post lung biopsy. Continue p.o. and inhaled bronchodilators, supplemental oxygen if pulse ox less than 90%. Gastric prophylaxis. SCDs to lower extremity. Thank you and will follow with you. Elisabet Pelaez MD cc: [phone] TT: 10/20/2016 18:20:59 Confirmation # [id number] Dictation # [id number] mn
[2016-10-21] MEDS: HYDROmorphone 2 mg/ml ISec IVP PRN ×5 (02:43→21:17)
[2016-10-21] MEDS: Albuterol-Ipratrop 3 mg / 0.5 (3 ml) UD IH SCH ×4 (03:44→21:14)
[2016-10-21] MEDS: Morphine 4 mg/ml ISec IVP PRN ×3 (04:50→15:42)
[2016-10-21] MEDS: Enoxaparin 40 mg Syringe SC SCH (05:36)
[2016-10-21] MEDS: Dexamethasone 4 mg/1 ml IVP SCH ×3 (05:37→17:43)
[2016-10-21] MEDS: Pantoprazole 40 mg EC Tab PO SCH (05:37)
[2016-10-21] MEDS: oxyCODONE 5 mg Immediate Release Tab PO PRN (05:54)
[2016-10-21] MEDS: Bisacodyl 5mg EC Tab PO SCH ×3 (09:33→17:44)
[2016-10-21] MEDS: POLYETHYLENE GLYCOL 3350 17 GM/Dose PACKET PO SCH (09:33)
[2016-10-21] MEDS: Lidocaine 5% Patch TD SCH (09:33)
--- NOTE | 2016-10-21 11:48 | CP.PCM.CON ---
History of Present Illness - History of Present Illness History of Present Illness: Mr Bebeto pineda 56 y/o [place] man with a large lung mass with presumable metastatic invovlement to bone with tumor invading T1 and T2 vetebra with right sided pedicle and lamina invasion s/p IR guided lung biopsy and s/p 2-3 fractions of XRT who is currently admitted for on going pain control PMHX: COPD, lung mass Social Hx: denies ETOH, drugs; previous extensive tobacco abuse Allergies: ?[facility]erge [facility] Systems - Constitutional Constitutional: absent: Chills, Fatigue, Increased Appetite, Snoring - Cardiovascular Cardiovascular: absent: As Per HPI, Acrocyanosis, Chest Pain, Chest Pain at Rest , Chest Pain with Activity, Claudication, Diaphoresis, Dyspnea, Dyspnea on Exertion, Edema, Irregular Heart Rhythm, Pain Radiating to Arm/Neck/Jaw, Leg Edema, Leg Ulcers, Lightheadedness, Orthopnea, Palpitations, Paroxysmal Nocturnal Dyspnea, Pedal Edema, Radiating Pain, Rapid Heart Rate, Slow Heart Rate, Syncope, Other - Respiratory Respiratory: absent: As Per HPI, Cough, Dyspnea, Hemoptysis, Dyspnea on Exertion , Wheezing, Snoring, Stridor, Pain on Inspiration, Chest Congestion, Excessive Mucous Production, Change in Mucous Color, Pain with Coughing, Other - Gastrointestinal Gastrointestinal: absent: As Per HPI, Abdominal Pain, Belching, Bloating, Change in Bowel Habits, Change in Stool Character, Coffee Ground Emesis, Constipation, Cramping, Diarrhea, Dyspepsia, Dysphagia, Early Satiety, Excessive Flatus, Fecal Incontinence, Heartburn, Hematemesis, Hematochezia, Loose Stools, Melena, Nausea, Odynophagia, Temesmus, Vomiting, Other - Hematologic/Lymphatic Hematologic: absent: As Per HPI, Easy Bleeding, Easy Bruising, Lymphadenopathy, Other Past Patient History - Past Social History Smoking Status: Heavy Smoker > 10 Cigarettes Daily - CARDIAC Hx Cardiac Disorders: No - PULMONARY Hx Respiratory Disorders: No - NEUROLOGICAL Hx Neurological Disorder: No Hx Alzheimer's Disease: No - HEENT Hx HEENT Problems: No - RENAL Hx Chronic Kidney Disease: No - ENDOCRINE/METABOLIC Hx Endocrine Disorders: No - HEMATOLOGICAL/ONCOLOGICAL Hx Blood Disorders: No - INTEGUMENTARY Hx Dermatological Problems: No - MUSCULOSKELETAL/RHEUMATOLOGICAL Hx Falls: No - GASTROINTESTINAL Hx Gastrointestinal Disorders: No - GENITOURINARY/GYNECOLOGICAL Hx Reproductive Disorders: No - PSYCHIATRIC Hx Substance Use: No - SURGICAL HISTORY Hx Surgeries: Yes - ANESTHESIA Hx Anesthesia Reactions: No Hx Malignant Hyperthermia: No Meds Allergies/Adverse Reactions: Allergies Allergy/AdvReac Type Severity Reaction Status Date / Time Penicillins Allergy ANAPHYLAXIS Verified 10/19/16 15:30 - Medications Medications: Current Medications Acetaminophen (Tylenol 325mg Tab) 650 mg PO Q6H PRN; Protocol PRN Reason: Fever >100.4 F Albuterol/Ipratropium (Duoneb 3 Mg/0.5 Mg (3 Ml) Ud) 3 ml IH [id number] [facility] PRN Reason: Protocol Last Admin: 10/21/16 07:44 Dose: Not Given Bisacodyl (Dulcolax) 5 mg PO TID [facility] PRN Reason: Protocol Last Admin: 10/21/16 09:33 Dose: 5 mg Dexamethasone (Decadron Inj) 2 mg IVP Q6 [facility] PRN Reason: Protocol Last Admin: 10/21/16 05:37 Dose: 2 mg Docusate Sodium (Colace) 100 mg PO BID [facility] PRN Reason: Protocol Last Admin: 10/20/16 17:27 Dose: 100 mg Enoxaparin Sodium (Lovenox) 40 mg SC 0600 [facility] PRN Reason: Protocol Last Admin: 10/21/16 05:36 Dose: 40 mg Fentanyl (Duragesic) 1 patch TD Q72H [facility] PRN Reason: Protocol Last Admin: 10/19/16 19:41 Dose: 1 patch Hydromorphone HCl (Dilaudid) 2 mg IVP Q3H PRN; Protocol PRN Reason: Pain, moderate (4-7) Last Admin: 10/21/16 07:46 Dose: 2 mg Lidocaine (Lidoderm) 2 ea TD DAILY [facility] PRN Reason: Protocol Last Admin: 10/21/16 09:33 Dose: 2 ea Morphine Sulfate (Morphine) 4 mg IVP Q4H PRN; Protocol PRN Reason: moderate pain (4-7) Last Admin: 10/21/16 11:05 Dose: 4 mg Ondansetron HCl (Zofran Inj) 4 mg IVP Q6H PRN; Protocol PRN Reason: Nausea/Vomiting Oxycodone HCl (Oxycodone Immediate Release Tab) 5 mg PO Q4 PRN; Protocol PRN Reason: Pain, Mild (1-3) Last Admin: 10/21/16 05:54 Dose: 5 mg Pantoprazole Sodium (Protonix Ec Tab) 40 mg PO 0630 [facility] PRN Reason: Protocol Last Admin: 10/21/16 05:37 Dose: 40 mg Polyethylene Glycol (Miralax) 17 gm PO DAILY [facility] PRN Reason: Protocol Last Admin: 10/21/16 09:33 Dose: 17 gm Pregabalin (Lyrica) 50 mg PO TID [facility] Last Admin: 10/21/16 09:33 Dose: 50 mg Pregabalin (Lyrica) 25 mg PO TID [facility] Last Admin: 10/21/16 09:33 Dose: 25 mg Physical Exam - Constitutional Appears: Non-toxic - Head Exam Head Exam: ATRAUMATIC, NORMAL INSPECTION, NORMOCEPHALIC - Respiratory Exam Respiratory Exam: Decreased Breath Sounds, NORMAL BREATHING PATTERN - Cardiovascular Exam Cardiovascular Exam: REGULAR RHYTHM - GI/Abdominal Exam GI & Abdominal Exam: Normal Bowel Sounds, Soft. absent: Tenderness - Extremities Exam Extremities exam: Positive for: normal inspection Results - Vital Signs Recent Vital Signs: Last Vital Signs Temp 98.1 F 10/19/16 16:38 Pulse 60 10/19/16 20:31 Resp 18 10/19/16 16:38 BP 109/70 10/19/16 16:38 Pulse Ox Assessment & Plan - Assessment and Plan (Free Text) Assessment: Mr Tate edwin 56 y/o [place] man with a large lung mass with presumable metastatic invovlement to bone with tumor invading T1 and T2 vetebra with right sided pedicle and lamina invasion s/p IR guided lung biopsy and s/p 2-3 fractions of XRT who is currently admitted for on going pain control. Pathology from patient's recent biopsy is still pending. Patient to start fentanyl patch 50mcg which should hopefully minimize need for prn medications. On going treatment with radiation will additionally be helpful from palliative stand point. Presumable diagnosis is metastatic NSCLC
--- NOTE | 2016-10-21 11:53 | CP.PCM.PN ---
Subjective - Date & Time of Evaluation Date of Evaluation: 10/20/16 Time of Evaluation: 18:00 - Subjective Subjective: No acute events over night. Patient states pain is perhaps better controlled. 12 ROS otherwise negative Objective - Vital Signs/Intake and Output Vital Signs (last 24 hours): Temp Pulse Resp BP Pulse Ox 98.1 F 60 18 109/70 10/19/16 16:38 10/19/16 20:31 10/19/16 16:38 10/19/16 16:38 - Medications Medications: Current Medications Acetaminophen (Tylenol 325mg Tab) 650 mg PO Q6H PRN; Protocol PRN Reason: Fever >100.4 F Albuterol/Ipratropium (Duoneb 3 Mg/0.5 Mg (3 Ml) Ud) 3 ml IH [id number] [facility] PRN Reason: Protocol Last Admin: 10/21/16 07:44 Dose: Not Given Bisacodyl (Dulcolax) 5 mg PO TID [facility] PRN Reason: Protocol Last Admin: 10/21/16 09:33 Dose: 5 mg Dexamethasone (Decadron Inj) 2 mg IVP Q6 [facility] PRN Reason: Protocol Last Admin: 10/21/16 05:37 Dose: 2 mg Docusate Sodium (Colace) 100 mg PO BID [facility] PRN Reason: Protocol Last Admin: 10/20/16 17:27 Dose: 100 mg Enoxaparin Sodium (Lovenox) 40 mg SC 0600 [facility] PRN Reason: Protocol Last Admin: 10/21/16 05:36 Dose: 40 mg Fentanyl (Duragesic) 1 patch TD Q72H [facility] PRN Reason: Protocol Last Admin: 10/19/16 19:41 Dose: 1 patch Hydromorphone HCl (Dilaudid) 2 mg IVP Q3H PRN; Protocol PRN Reason: Pain, moderate (4-7) Last Admin: 10/21/16 07:46 Dose: 2 mg Lidocaine (Lidoderm) 2 ea TD DAILY [facility] PRN Reason: Protocol Last Admin: 10/21/16 09:33 Dose: 2 ea Morphine Sulfate (Morphine) 4 mg IVP Q4H PRN; Protocol PRN Reason: moderate pain (4-7) Last Admin: 10/21/16 11:05 Dose: 4 mg Ondansetron HCl (Zofran Inj) 4 mg IVP Q6H PRN; Protocol PRN Reason: Nausea/Vomiting Oxycodone HCl (Oxycodone Immediate Release Tab) 5 mg PO Q4 PRN; Protocol PRN Reason: Pain, Mild (1-3) Last Admin: 10/21/16 05:54 Dose: 5 mg Pantoprazole Sodium (Protonix Ec Tab) 40 mg PO 0630 [facility] PRN Reason: Protocol Last Admin: 10/21/16 05:37 Dose: 40 mg Polyethylene Glycol (Miralax) 17 gm PO DAILY [facility] PRN Reason: Protocol Last Admin: 10/21/16 09:33 Dose: 17 gm Pregabalin (Lyrica) 50 mg PO TID [facility] Last Admin: 10/21/16 09:33 Dose: 50 mg Pregabalin (Lyrica) 25 mg PO TID [facility] Last Admin: 10/21/16 09:33 Dose: 25 mg - Constitutional Appears: Well - Respiratory Exam Respiratory Exam: Decreased Breath Sounds. absent: Respiratory Distress - Cardiovascular Exam Cardiovascular Exam: REGULAR RHYTHM, +S1, +S2. absent: Murmur - GI/Abdominal Exam GI & Abdominal Exam: Soft, Normal Bowel Sounds. absent: Tenderness - Extremities Exam Extremities Exam: Full ROM, Normal Capillary Refill, Normal Inspection. absent : Joint Swelling, Pedal Edema Assessment and Plan - Assessment and Plan (Free Text) Assessment: Mr Tate edwin 56 y/o [place] man with a large lung mass with presumable metastatic invovlement to bone with tumor invading T1 and T2 vetebra with right sided pedicle and lamina invasion s/p IR guided lung biopsy and s/p 2-3 fractions of XRT who is currently admitted for on going pain control. Pain perhaps better controlled. Just started on fentanyl. Awaiting pathology results but presumable diagnosis is stage IV NSCLC. No evidence of neurologic compromise at present.
[2016-10-21] MEDS: oxyCODONE 10 mg ER Tab (oxyCONTIN) PO SCH (23:02)
--- NOTE | 2016-10-22 00:24 | PN ---
DATE: 10/21/2016 REFERRING PHYSICIAN: Dr. Fermin. SUBJECTIVE: He is sitting up in a chair, feels better, decreased cough and shortness of breath. Sti ll having right scapula and upper back pain. No nausea, no vomiting, no diarrhea, no leg pain or leg swelling. OBJECTIVE: GENERAL: In no acute distress. VITAL SIGNS: Temperature is 98, heart rate is 9 , respiratory rate is 20, blood pressure 104/71, pulse ox 96% on room air. HEENT: Moist mucous membranes. Crowded airway. NECK: Supple. No JVD. LUNGS: Has decreased breath sounds on the right lung. HEART: S1, S2. ABDOMEN: Soft, nontender. No organomegaly. EXTREMITIES: There is no edema. NEUROLOGIC: Awake, alert, follows simple command. MEDICATIONS: He is on Colace 100 mg twice a day, Decadron 2 mg q. 6 hours, Dilaudid 2 mg IV q. 3 rin rs p.r.n., Dulcolax 5 mg 3 times a day, DuoNeb q. 6 hours, Duragesic patch q. 72 hours, Lidoderm patc h daily, Lovenox 40 mg daily, Lyrica 50 mg 3 times a day, Lyrica 25 mg 3 times a day, total 75 mg 3 t imes a day, MiraLax 17 grams p.o. daily, oxycodone immediate release 5 mg q. 4 hours p.r.n., Protonix 40 mg daily, Tylenol p.r.n., Zofran on a p.r.n. basis. LABORATORY DATA: Reviewed and noted. Lab is available. IMPRESSION AND PLAN: Lung mass, probably a cancer. Will review pathology report involving her bone. has a spinal cord stenosis, chronic obstructive lung disease, receiving radiation therapy at present time. We will continue p.o. and inhaled bronchodilator. Keep head elevated at 45 degrees. Supplement oxygen. I spoke to nursing staff to give him prune juice as needed basis. Thank you. Wi ll follow with you. Elisabet Pelaez MD cc: [phone] TT: 10/22/2016 00:23:17 Confirmation # [id number] Dictation # [id number] mn
[2016-10-22] MEDS: HYDROmorphone 2 mg/ml ISec IVP PRN ×5 (00:49→21:33)
[2016-10-22] MEDS: Albuterol-Ipratrop 3 mg / 0.5 (3 ml) UD IH SCH ×4 (01:49→19:51)
[2016-10-22] MEDS: Dexamethasone 4 mg/1 ml IVP SCH ×4 (02:44→18:02)
[2016-10-22] MEDS: Enoxaparin 40 mg Syringe SC SCH (05:08)
[2016-10-22] MEDS: oxyCODONE 5 mg Immediate Release Tab PO PRN ×2 (05:09→14:45)
[2016-10-22] MEDS: Pantoprazole 40 mg EC Tab PO SCH (05:34)
--- NOTE | 2016-10-22 08:15 | HP ---
HISTORY OF PRESENT ILLNESS: The patient is a 56-year-old female who came in with intractable back pa in. Found to have lung cancer spread to his bone. Currently on radiation therapy and pain managemen t in TCU. The patient complains that his pain is more at night and, in spite of getting his pain med icine, because of the pain he has trouble sleeping. The patient has no other new complaint. PHYSICAL EXAMINATION: VITAL SIGNS: Temperature is 98.1, heart rate 60, blood pressure 109/70, respirations 18. HEAD AND NECK: Normal. No JVD. No thyromegaly. CHEST: Clear, good air entry. CARDIAC: First sound, second sound normal. ABDOMEN: Soft, nontender. EXTREMITIES: No edema. NEUROLOGIC: He is normal. ALLERGIES: QUESTIONABLE ALLERGY TO PENICILLIN BUT NOT CLEARLY. FAMILY HISTORY: Significant for cancer; his sister and his brother have cancer. One has lymphoma, s ister has uterine cancer. His mother has cardiac disease. Other sister has chronic atrial fibrillat ions. SOCIAL HISTORY: He is a heavy smoker, but he stopped now. No alcohol. PAST MEDICAL HISTORY: He smokes, obstructive lung disease, and recently has lung CA that spread with bone mets to his thoracic spine. MEDICATIONS: From medical floor: He is taking Decadron, he is taking DuoNeb, Duragesic patch, Lidod erm patch, Lovenox 40 for DVT prophylaxis, Lyrica 50 mg 3 times a day, MiraLax b.i.d., Protonix 40 mg p.o. daily, Tylenol and Zofran p.r.n. REVIEW OF SYSTEMS: Significant for short of breath, yes. Short of breath and back pain thoracic spi ne, and difficulty sleeping due to pain. PHYSICAL EXAMINATION: As I mentioned above. His laboratory will be ordered tomorrow. ADMITTING DIAGNOSIS: A 56-year-old male with lung cancer, 5 cm, spread to his bones with destructive lesions. PLAN: Will admit the patient in TCU for pain management and continuation of radiation therapy and [facility] physical therapy for generalized weakness. Will monitor his symptoms. For constipation, we ar e going to give him Relistor every other day, and we are going to add also oxycodone 5 mg q. 4 hours p.r.n., especially at night before he goes to bed to make him sleep better. Will continue pain manag ement. Continue radiation. Continue all current GI and DVT prophylaxis. Will consult pulmonary con sult and radiation oncology and Dr. Leary for oncology consult. Continue current therapy. I will see him tomorrow. Please consider this a history and physical for his admission to [facility], and the date is _. Gary Fermin MD cc: [phone] TT: 10/21/2016 11:11:49 mn
--- NOTE | 2016-10-22 08:18 | PN ---
DATE: 10/21/2016 LOCATION: The patient is in [facility], room 327, bed 2. REASON FOR CONSULTATION: Locally advanced stage IV carcinoma of the lung with involvement of the vertebral body T3-T4 extending into the spinal canal compromising the spinal canal extending into the scalene muscle causing severe pain in the scapula, right shoulder, right arm region, which on a pain scale of 0/10 is at least a 9. The patient has been started on IV Dilaudid, Duragesic patches, plus oxycodone without much relief. He is still telling me the pain scale on a scale of 0/10 is 7-9. HISTORY OF PRESENT ILLNESS: This is a 56-year-old male, who recently stopped smoking found to have right chest pain, came to the Emergency Room. He said the pain was worsening with pain going up the upper back and mid back pain. Workup with a CAT scan showed the patient to have a large tumor in the upper lobe of the lung on the right side invading the spine. The patient has been seen by radiation oncologist, neurosurgery, and has had a CT-guided biopsy of the mass on Friday. Preliminary report, we are dealing with a poorly differentiated tumor in the right upper lobe of the lung_ to be further clarified on further testing including immunohistochemical stains to determine the nature of the cancer, but it is non-small cell or adeno or adeno- squamous cell carcinoma. PAST MEDICAL HISTORY: Significant for obstructive lung disease and recently was diagnosed with a lung tumor. PHYSICAL EXAMINATION: GENERAL: The patient is examined in bed. He still tells me his pain on a pain scale of 0/10, it is at least a 9 after he had walked, when he was ambulating as part of his therapy in the [facility]. He had severe pain radiating anteriorly across the chest and also radiating down to the shoulder, requiring IV narcotics with Dilaudid. The patient was able to go for radiation. Has finished 2 of his radiation treatments. Plan is to give him a total of 10. The patient denies any history of nausea, vomiting at this time. The patient is in pain. VITAL SIGNS: T-max is 98.4, heart rate is 60, respirations 18, blood pressure 109/70. HEENT: Head is normocephalic, atraumatic. Conjunctivae pale. Sclerae are anicteric. Examination of the oropharynx reveals no oropharyngeal lesions. No ulcerations. NECK: Supple. There is no adenopathy. LUNGS: Reveals decreased breath sounds in the right lung posteriorly. HEART: Reveals S1 and S2 to be normal. No gallop or murmur is heard. ABDOMEN: Soft, nontender. Bowel sounds are present. No rebound, rigidity, or guarding is noted. NEUROLOGIC: The patient is awake, alert, and oriented, in no significant distress. LABORATORY DATA: Shows a white count of 12.6, hemoglobin 36.9, white count is 5.1. INR is 0.96. Sodium is 132, K is 4.3, chloride 95, bicarbonate 25, BUN 11 , creatinine 0.6, glucose 170. LFTs are okay. ASSESSMENT NOTES AND PLAN: The patient has locally advanced stage IV carcinoma of the lung further determination to be made as to the nature of the cancer, as immunohistochemistry is still pending. The patient is very symptomatic from pain. We are going to increase the Duragesic patch from 70 to 100 mcg. We will continue the oxycodone for relief of pain, and we are going to give him a bisphosphonate for controlling the disease in the bone. In the meantime, the patient's radiations will continue while he is in the hospital because maximum benefit may be requiring at least 5-6 days of actual treatment. Routine post exam instructions have been given to the patient. The patient has a followup appointment to see Dr. Guerrero and followup appointment to see his primary doctor as an outpatient. Plan is to continue radiation while he is in the hospital, and wait for molecular markers to come back when we can further discussion about his treatment and management, as to which direction we should go. I explained to the patient in great detail and adjusted the pain medicine so that he gets iV Dilaudid before and after he goes for radiation, so he will be able to lay down for the procedure to be done, and he will be more comfortable after he came back and got another shot so that he could rest for a few hours to gain his strength back. Lizzie Leary MD cc: [phone] TT: 10/22/2016 00:14:13 Confirmation # [id number] Dictation # [id number] tn MTDD
--- NOTE | 2016-10-22 08:28 | PN ---
DATE: 10/21/2016 The patient in TCU. Still complained of pain and constipation. Otherwise, no short of breath, no ot her complaint. He is still getting radiation therapy on daily basis. PHYSICAL EXAMINATION: VITAL SIGNS: Temperature 98.5, heart rate 91, blood pressure 104/71, respirations 20, saturating 96% . HEAD AND NECK: Normal. No JVD, no thyromegaly. CHEST: Diminished breath sounds, clear. CARDIAC: First sound, second sound normal. ABDOMEN: Soft, nontender. EXTREMITIES: No edema. NEUROLOGIC: Normal. MUSCULOSKELETAL: The patient is very sensitive to touch to the spine. IMPRESSION AND PLAN: 1. Stage IV lung cancer, adenocarcinoma. Will continue radiation therapy. Continue Decadron. Foll ow up with oncology and radiation oncology. 2. Chronic obstructive pulmonary disease, history of heavy smoking. Continue inhaled bronchodilator s. 3. Constipation. We will give the patient Fleet enema. We are also considering giving the patient also Relistor in addition to the other medication for chronic constipation, which includes Dulcolax t ablets and Colace. Continue current treatment. Follow up clinically. 4. Chronic back pain, intractable. Continue oxycodone 10 mg. Continue oxycodone, OxyContin, and th e patient getting also Duragesic patch every 3 days in addition to he is getting Dilaudid p.r.n. Con tinue current treatment. Follow up clinically. Gary Fermin MD cc: [phone] TT: 10/22/2016 08:27:49 Confirmation # [id number] Dictation # [id number] en
[2016-10-22] MEDS: Lidocaine 5% Patch TD SCH (09:16)
[2016-10-22] MEDS: POLYETHYLENE GLYCOL 3350 17 GM/Dose PACKET PO SCH ×2 (09:21→17:56)
[2016-10-22] MEDS: Bisacodyl 5mg EC Tab PO SCH ×3 (09:38→17:52)
[2016-10-22] MEDS: oxyCODONE 10 mg ER Tab (oxyCONTIN) PO SCH (21:30)
[2016-10-23] MEDS: Dexamethasone 4 mg/1 ml IVP SCH ×4 (00:02→17:52)
[2016-10-23] MEDS: HYDROmorphone 2 mg/ml ISec IVP PRN ×6 (00:46→21:30)
--- NOTE | 2016-10-23 00:55 | PN ---
DATE: 10/22/2016 LOCATION: The patient is in room 327, bed 1. REASON FOR CONSULTATION: This is a 56-year-old male with locally advanced stage IV carcinoma of the lung, reported carcinoma of the lung with involvement of the vertebral body T3-T4 t o the spinal canal, compromising the spinal canal, extending into the rectus spiny muscle causi ng severe pain in the scapular right shoulder, right arm region, which, on a pain scale of 0-10, is a t least 9. The patient has been started on IV Dilaudid, Duragesic patches, which were increased dose , plus oxycodone without much relief. He still has the pain on scale of 0-10 is at least around 7, s ometimes 9 at times. The patient has been transferred to the [facility] for deconditioning. Continuing hi s radiation and adjusting the pain medicines. HISTORY OF PRESENT ILLNESS: This is a 56-year-old male who Has recently stopped smoking, found to diaz ve right-sided chest pain, came to the Emergency Room. He said the pain was worsening over the upper back and mid back region over the last several weeks. Workup with a CAT scan showed the patient to h ave a large tumor in the right upper lobe of the lung on the right side invading his spine. The helga ent was seen by radiation oncology, neurologist and a CAT scan guided biopsy of the mass was done on Friday. Preliminary report on the mass at the beginning is a poorly differentiated carcinoma of the right upper lobe. On the biopsy, further immunohistochemical stains have to be done for further deli neation of the type of tumor it is; if it is nonsmall cell, is it an adeno or poorly differentiated s quamous cell carcinoma? PAST MEDICAL HISTORY: Significant for obstructive lung disease and recently diagnosed with lung canc er. PHYSICAL EXAMINATION: GENERAL: The patient is examined in bed. Pain is still significant on the medications consisting of the Duragesic patches, Dilaudid IV, along with oral oxycodone therapy. He is also constipated, for which he is on a constipation protocol. The patient has finished 3 doses of radiation. Plan is to g abril him a total of 10. Denies history of significant nausea or vomiting. The patient continues to b e in pain. VITAL SIGNS: Stable as stated on the chart. T-max is 98.4, heart rate is 60, respirations 18, blood pressure is 109/72. HEENT: Head is normocephalic, atraumatic. Conjunctivae pale. Sclerae are anicteric. Pupils are eq ually reactive to light and accommodation. Examination of the oropharynx reveals no oropharyngeal le sions. NECK: Supple. There is no adenopathy. No jugular venous distention is noted. HEART: Reveals S1 and S2 to be normal. No gallop or murmur is heard. ABDOMEN: Soft, nontender. Bowel sounds are present. There is no rigidity noted. No rebound noted. NEUROLOGIC: Higher functions are normal. No focal deficits are noted on neurologic exam. LABORATORY DATA: Reveals the CBC to be stable at this time. Electrolytes are normal. LFTs are okay . ASSESSMENT NOTES AND PLAN: The patient has stage IV nonsmall cell lung carcinoma, poorly differentia fernanda. Further determining of the histologic aspects is not yet available. The patient's case is bein g presented to move on tomorrow. There, we will get further consensus and come up with a decision fo r the patient, how it should be managed one he gets the radiation to control the pain. The patient's pain reasonably well-controlled prior to us initiating any form of systemic chemotherapy or im munotherapy. Routine post exam instructions have been given to the patient. Continue to monitor the pain status of the patient very carefully. Lizzie Leary MD cc: [phone] TT: 10/23/2016 00:54:51 Confirmation # [id number] Dictation # [id number] mn
[2016-10-23] MEDS: Albuterol-Ipratrop 3 mg / 0.5 (3 ml) UD IH SCH ×5 (01:12→21:11)
--- NOTE | 2016-10-23 01:58 | PN ---
DATE: 10/22/2016 REFERRING PHYSICIAN: Dr. Fermin. SUBJECTIVE: He is out of bed to chair. Family is at bedside. Complaining about not getting pain me dication on time. Still has right upper back pain. No cough, no sputum production, no nausea, vomit ing, diarrhea. No leg pain or leg swelling. OBJECTIVE: GENERAL: In no acute distress. VITAL SIGNS: Temperature is 98, heart rate is 70, respiratory rate is 16, blood pressure 135/80 and pulse ox 97% on room air. HEENT: Moist mucous membranes. Small oral cavity. LUNGS: Have a fair airflow with decreased breath sounds at the right lung. HEART: S1, S2. ABDOMEN: Soft, nontender. No organomegaly. EXTREMITIES: There is no edema. NEUROLOGIC: Awake, alert, follows simple command. MEDICATIONS: He is on Colace 100 mg twice a day, Decadron 2 mg q. 6 hours, Dilaudid 2 mg q. 3 hours p.r.n., Dulcolax 5 mg 3 times a day, albuterol-Atrovent nebulizer q. 6 hours, Duragesic patch q. 72 h ours, Lidoderm patch daily, Lovenox 40 mg subQ daily, Lyrica 75 mg 3 times a day, MiraLax 17 grams tw ice a day, oxycodone immediate release 5 mg q. 4 hours p.r.n., OxyContin extended release 10 mg at be dtime, Protonix 40 mg daily, Tylenol p.r.n. basis, Zofran p.r.n. basis. LABORATORY DATA: Reviewed. No new lab is available. IMPRESSION AND PLAN: Lung cancer with metastatic disease to spine and ribs, chronic obstructive lung disease, constipation. Spoke to patient and patient's family at bedside. All the questions answere d. I also spoke with nursing staff. The patient reassured that he will be getting his pain medicati ons. Gastric prophylaxis. Sequential compression device to lower extremity, stool softener. Contin ue radiation and pain management. Thank you and will follow with you. Elisabet Pelaez MD cc: [phone] TT: 10/23/2016 01:57:44 Confirmation # [id number] Dictation # [id number] mn
[2016-10-23] MEDS: Enoxaparin 40 mg Syringe SC SCH (06:11)
[2016-10-23] MEDS: Pantoprazole 40 mg EC Tab PO SCH (06:12)
[2016-10-23] MEDS: Bisacodyl 5mg EC Tab PO SCH ×3 (09:34→17:53)
[2016-10-23] MEDS: Lidocaine 5% Patch TD SCH (09:36)
[2016-10-23] MEDS: POLYETHYLENE GLYCOL 3350 17 GM/Dose PACKET PO SCH ×2 (09:40→17:53)
--- NOTE | 2016-10-23 12:37 | PN ---
DATE: 10/22/2016 A 56-year-old male who has been getting radiation therapy for his back. He slept good last night. H is pain level was okay at night. However, during the day, he gets more pain with ambulation. The pa georgie moved his bowels. Clinically stable at this time. PHYSICAL EXAMINATION: VITAL SIGNS: Temperature 97.3, heart rate 70, blood pressure 135/80, respirations 16, saturation 100 %. HEAD AND NECK: Normal. No JVD, no thyromegaly. CHEST: Clear, good entry. CARDIAC: First and second sounds are normal. ABDOMEN: Soft, obese, nontender. EXTREMITIES: No edema. NEUROLOGIC: Normal, except he has tender back to touch. IMPRESSION AND PLAN: 1. Left lower lobe lung cancer with a lung mass stage IV and spread to the thoracic spine. Continue radiation therapy. Continue Decadron. Follow up with ____ Continue pain management. 2. Chronic constipation, probably due to pain induced. Continue Relistor. He got it already last n ight, may get it tomorrow, every other day. Also continue MiraLax, continue Dulcolax. 3. Chronic back pain, intractable. Continue Duragesic patch, Dilaudid and oxycodone. Seems to be d oing okay, plus continue Lidoderm patch. 4. Heavy smoker plus chronic obstructive pulmonary disease . Continue current treatment and will fol low up with the pulmonary, with oncology. At this time, continue radiation therapy. Plan is to get chemotherapy for poorly differentiated adenocarcinoma, probably stage IV. The patient is getting gastrointestinal and deep venous thrombosis prophylaxis, Protonix and Lovenox. Gary Fermin MD cc: [phone] TT: 10/23/2016 12:36:52 Confirmation # [id number] Dictation # [id number] robert
[2016-10-23] MEDS: oxyCODONE 5 mg Immediate Release Tab PO PRN (14:47)
[2016-10-23] MEDS: guaiFENesin-DM 600-30 mg ER Tab PO SCH (17:58)
--- NOTE | 2016-10-23 18:44 | PN ---
DATE: 10/23/2016 REFERRING PHYSICIAN: Dr. Fermin. SUBJECTIVE: He is lying in the bed, feels better, mild cough, still having a lot of right upper back pain. Received radiation this morning. No nausea, no vomiting, diarrhea. No leg pain or leg swell ing. OBJECTIVE: GENERAL: No acute distress. VITAL SIGNS: Temperature is 98, heart rate is 78, respiratory rate is 18, blood pressure 130/82, pul se ox 96% on room air. HEENT: Moist mucous membrane. Crowded airway. NECK: Supple. No JVD. LUNGS: Has scattered rhonchi. HEART: S1, S2. ABDOMEN: Soft, nontender. No organomegaly. EXTREMITIES: There is no edema. NEUROLOGIC: Awake, alert, follows simple commands. MEDICATIONS: He is on Colace 100 mg twice a day, Decadron 2 mg q. 6 hours, Dilaudid 2 mg q. 3 hours p.r.n., Dulcolax 5 mg 3 times a day, DuoNeb q. 6 hours, noncompliant with a Duragesic patch q. 72 rin rs, Lidoderm patch at affected area, Lovenox 40 mg daily, Lyrica 75 mg 3 times a day, MiraLax 17 gram s twice a day, oxycodone immediate release 5 mg q. 4 hours p.r.n., Protonix 40 mg daily, Tylenol p.r. n. basis, Zofran p.r.n. basis. LABORATORY DATA: Reviewed. Blood sugar was 118. IMPRESSION AND PLAN: Lung cancer with metastatic disease involving the , chronic obstructive mike ng disease, constipation. Does not want to use nebulizer treatments. Refusing to use MDI and other inhalers. We will give him Mucomyst 600 mg twice a day. On already steroids. Gastric prophylaxis. Sequential compression device to lower extremity, pain management, being followed by Dr. [facility]. Thank you and we will follow with you. Elisabet Pelaez MD cc: [phone] TT: 10/23/2016 18:43:34 Confirmation # [id number] Dictation # [id number] cn
[2016-10-23] MEDS ORDERED: HYDROmorphone 2 mg/ml ISec IVP PRN (21:07)
[2016-10-23] MEDS: oxyCODONE 10 mg ER Tab (oxyCONTIN) PO SCH (21:35)
--- NOTE | 2016-10-23 23:22 | PN ---
DATE: 10/23/2016 This is the patient's hospital visit on TCU. For Dr. Leary. SUBJECTIVE: The patient is a 56-year-old male now seen on TCU reporting that his pain from his nonsm all cell cancer of the lung, poorly differentiated, is now causing significant pain in his neck on th e right for which he is now getting radiation treatments. The patient he describes is 8/10 with adju stment of his pain medications to be done. With this, he is otherwise reporting his appetite is fair with labs to be drawn in the morning. We will increase his narcotic analgesics for his pain. OBJECTIVE: PHYSICAL EXAMINATION: VITAL SIGNS: Temperature 97.3, pulse 82, respirations 14, blood pressure 114/84, pulse ox 96%. HEENT: Unremarkable. NECK: Supple, with increased tenderness to gentle palpation. Range of motion decreased on the right neck. HEART: Regular rate. LUNGS: Occasional rhonchi. ABDOMEN: Soft, nontender. EXTREMITIES: No edema. SKIN: Warm, dry and clear. NEUROLOGIC: Awake and alert. LABORATORY DATA: The patient's labs were done earlier in his hospital stay. They will be repeated t omorrow. ASSESSMENT: For this patient is that of deconditioning, locally advanced stage IV poorly differentia fernanda nonsmall cell carcinoma of the lung involvement of the vertebral bodies T3-4, causing severe pain in the scapular area of the right shoulder. History of metal plate placed in the back, discopathy, history of neck surgery, paraspinal mass with brachial plexus compression, intractable pain of cancer , left adrenal mass, severe spinal stenosis, smoking history. PLAN: Will be to increase his narcotic analgesics, with the labs to be checked and monitored in the morning. We will continue radiation. Prognosis for this patient is guarded. Reagan Antoine MD cc: [phone] TT: 10/23/2016 23:22:14 Confirmation # [id number] Dictation # [id number] mn
[2016-10-24] MEDS: HYDROmorphone 2 mg/ml ISec IVP PRN ×6 (01:06→21:48)
[2016-10-24] MEDS: Dexamethasone 4 mg/1 ml IVP SCH ×4 (01:07→17:14)
[2016-10-24 06:10] LABS: ADD MANUAL DIFF? NO
[2016-10-24] MEDS: Enoxaparin 40 mg Syringe SC SCH (06:12)
[2016-10-24] MEDS: Pantoprazole 40 mg EC Tab PO SCH (06:13)
[2016-10-24 06:14] LABS: BASO # 0.01 K/mm3 (0.0-2.0); BASO % 0.1 % (0.0-3.0); EOS % 0.1 % (1.5-5.0); GRAN # 7.21 (1.4-6.5); GRAN % 81.1 % (50.0-68.0); LYMPH # 1.2 (1.2-3.4); LYMPH % 13.4 % (22.0-35.0); MEAN CELL VOLUME 92.2 fL (80.0-105.0); MEAN CORPUSCULAR HEMOGLOBIN 31.6 pg (25.0-35.0); MEAN CORPUSCULAR HGB CONC 34.2 g/dl (31.0-37.0); MEAN PLATELET VOLUME 9.5 fl (7.0-11.0); MONO # 0.5 (0.1-0.6); MONO % 5.3 % (1.0-6.0); PLATELET COUNT 358 10^3/uL (120.0-450.0); RED CELL DISTRIBUTION WIDTH 13.9 % (11.5-14.5); WHITE BLOOD COUNT 8.9 10^3/ul (4.5-11.0)
[2016-10-24 06:35] LABS: ALB/GLOB RATIO 1.3 (1.1-1.8); ALKALINE PHOSPHATASE 81 U/L (38-133); ALT/SGPT 40 U/L (7-56); AST/SGOT 26 U/L (15-59); BILIRUBIN,TOTAL 0.6 mg/dL (0.2-1.3); BLOOD UREA NITROGEN 18 mg/dL (7-21); CALCIUM 9.2 mg/dL (8.4-10.5); CARBON DIOXIDE 28 mmol/L (21-33); CHLORIDE 94 mmol/L (95-110); GFR AFRICAN-AMERICAN > 60; GLUCOSE,RANDOM 124 mg/dL (70-110); POTASSIUM 4.3 mmol/L (3.6-5.0); SODIUM 131 mmol/L (132-148); TOTAL PROTEIN 7.1 g/dL (5.8-8.3)
[2016-10-24] MEDS: Albuterol-Ipratrop 3 mg / 0.5 (3 ml) UD IH SCH ×3 (07:20→20:58)
[2016-10-24] MEDS ORDERED: HYDROmorphone 1 mg/ml ISec IVP STA (08:10)
[2016-10-24] MEDS: Bisacodyl 5mg EC Tab PO SCH ×3 (09:38→17:15)
[2016-10-24] MEDS: Lidocaine 5% Patch TD SCH (09:39)
[2016-10-24] MEDS: POLYETHYLENE GLYCOL 3350 17 GM/Dose PACKET PO SCH ×2 (09:43→17:23)
[2016-10-24] MEDS: guaiFENesin-DM 600-30 mg ER Tab PO SCH ×2 (09:43→17:18)
--- NOTE | 2016-10-24 11:33 | PN ---
DATE: 10/23/2016 A 56-year-old male patient in TCU getting radiation therapy. He is stable. His pain seems controlle d. He did not move his bowels today. Otherwise, stable. PHYSICAL EXAMINATION: VITAL SIGNS: Temperature 97.3, heart rate 82, blood pressure 114/84, respirations 18, saturating 96% . HEAD AND NECK: Normal. No JVD, no thyromegaly. CHEST: Clear, good entry. CARDIAC: First sound and second sound normal. ABDOMEN: Soft, nontender. EXTREMITIES: No edema. NEUROLOGIC: Normal. IMPRESSION AND PLAN: 1. Lung cancer stage IV with extension to the thoracic spine. Continue radiation therapy. Continue Decadron. 2. Lung cancer, poorly differentiated adenocarcinoma stage IV. Dr. Leary will follow up after radi ation and chemotherapy. I did explain the case to the patient. We will continue current treatment. 3. Intractable back pain. Continue pain management as it is. The patient is getting Duragesic patc h, Dilaudid, Lidoderm patch, oxycodone. Will follow up. We are not going to change the dosage as he seems stable on that. 4. Chronic opioid induced constipation. The patient will get Relistor every other day and continue other MiraLax and lactulose p.r.n. The patient also getting Dulcolax p.r.n. We will continue curren t treatment. Will follow up clinically with the other area development consultant. Gary Fermin MD cc: [phone] TT: 10/24/2016 11:31:50 Confirmation # [id number] Dictation # [id number] dasha
--- NOTE | 2016-10-24 21:36 | PN ---
DATE: 10/24/2016 REFERRING PHYSICIAN: Dr. Fermin. SUBJECTIVE: The patient is lying in the bed. Day was unremarkable. Doing well in therapy. Has timoteo e cough. No sputum production. Continuing to have back, right-sided pain. No nausea, no vomiting. Has constipation. No leg pain or leg swelling. OBJECTIVE: GENERAL: In no acute distress. VITAL SIGNS: Temperature is 98, heart rate is 70, respiratory rate is 14, blood pressure 111/72, pul se ox 96% on room air. HEENT: Moist mucous membranes. Small oral cavity. NECK: Supple. No JVD. LUNGS: Has scattered rhonchi. HEART: S1 and S2. ABDOMEN: Soft and nontender. No organomegaly. EXTREMITIES: No edema. NEUROLOGIC: Awake, alert, follows simple commands. MEDICATIONS: He is on Colace 100 mg twice a day, Decadron 2 mg IV q.6 hours, Dilaudid 3 mg IV q.3 ho urs p.r.n., Dulcolax 5 mg 3 times a day, DuoNeb q.6 hours, Duragesic patch q.72 hours, Lidoderm patch daily, Lovenox 40 mg daily, Lyrica 75 mg 3 times a day, MiraLax 17 grams twice a day, Mucinex DM 600 mg twice a day, oxycodone immediate release 5 mg q.4 hours p.r.n., OxyContin extended release 10 mg at bedtime, Protonix 40 mg daily, Tylenol p.r.n. basis, Zofran p.r.n. basis. LABORATORY DATA: Shows hemoglobin 13.0, hematocrit 38.7, WBC 8.9, platelet count is 358. Chemistry shows sodium 131, potassium 4.3, chloride 94, bicarbonate 28, BUN 18, creatinine 0.6, glucose 118, ca lcium is 9.2. AST 26, ALT 40, alkaline phosphatase is 81, albumin is 4.0. IMPRESSION AND PLAN: Metastatic lung cancer involving the bone and spine, chronic obstructive lung d isease, chronic constipation. Pulmonary point of view he is doing okay. Continue radiation therapy, pain management, stool softener and bronchodilators. Decrease steroids. Fall precaution. Thank you and will follow with you. Elisabet Pelaez MD cc: [phone] TT: 10/24/2016 21:36:08 Confirmation # [id number] Dictation # [id number] dn
[2016-10-24] MEDS: oxyCODONE 10 mg ER Tab (oxyCONTIN) PO SCH (21:48)
[2016-10-24] MEDS ORDERED: Dexamethasone 4 mg/1 ml IVP SCH (22:00)
--- NOTE | 2016-10-24 23:30 | PN ---
DATE: 10/24/[address] Leary. SUBJECTIVE: The patient is a 56-year-old male seen sitting up in bed, reporting that he has not had a bowel movement in approximately 2 days' time, feels constipated despite laxatives being given by Dr Luma Fermin, his primary doctor. The patient reports that his pain is still significant with adjustment of his medications to be done after conversation with Dr. Fermin and Dr. Leary. The patient ventura nues his radiation as per and is otherwise comfortable. OBJECTIVE: VITAL SIGNS: Temperature 98.8, pulse 78, respirations 14, blood pressure 111/72, pulse ox of 96%. HEENT: Unremarkable. Tongue was moist and midline. NECK: Tenderness to gentle palpation to the right neck with decreased range of motion there. HEART: Regular rate. LUNGS: Rare rhonchi. ABDOMEN: Soft, nontender. EXTREMITIES: No edema. SKIN: Warm, dry and clear. NEUROLOGIC: Awake, alert, and oriented x 3. LABORATORY DATA: The patient's labs were done, white blood cell count 8.9, hemoglobin 13.0, hematocr it 38.0, platelet count of 358,000 with a chem metabolic panel showing a sodium of 131, chloride of 9 4, otherwise normal chem metabolic panel. 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 PLAN: After conversation with Dr. Leary and Dr. Fermin, will be to continue his present medical re gimen with Fleet's enema given for constipation. Will also increase his dexamethasone from 2 mg IV q . 12 to 4 mg IV q. 12 with his narcotic analgesics to continue. We will increase the oxycodone from 5 to 10 mg q. 4 hours in addition to his OxyContin, which he is getting 10 mg at bedtime along with D ilaudid 3 mg IV q. 3 hours for his severe pain with fentanyl patch 100 mcg q. hour, along with Lidode rm patch and Lyrica. Prognosis for this patient is guarded. We will monitor clinically and with lab s. Reagan Antoine MD cc: [phone] TT: 10/24/2016 23:29:17 Confirmation # [id number] Dictation # [id number] mn
[2016-10-25] MEDS: HYDROmorphone 2 mg/ml ISec IVP PRN ×5 (01:08→21:40)
[2016-10-25] MEDS: Albuterol-Ipratrop 3 mg / 0.5 (3 ml) UD IH SCH ×4 (04:50→19:57)
[2016-10-25] MEDS: oxyCODONE 5 mg Immediate Release Tab PO PRN (05:59)
[2016-10-25] MEDS: Enoxaparin 40 mg Syringe SC SCH (06:00)
[2016-10-25] MEDS: Pantoprazole 40 mg EC Tab PO SCH (06:00)
--- NOTE | 2016-10-25 08:42 | PN ---
DATE: 10/24/2016 The patient is a 56-year-old male with lung cancer metastasized to the thoracic spine with destructiv e lesions. Currently, he got radiation therapy, getting pain medicine. Complained of constipation, otherwise is stable. PHYSICAL EXAMINATION: VITAL SIGNS: Temperature 98.8, heart rate 78, blood pressure 111/72, respirations 14. HEAD AND NECK: Normal. No JVD. No thyromegaly. CHEST: Clear, good air entry. CARDIAC: First sound, second sound normal. ABDOMEN: Soft, obese, nontender. EXTREMITIES: No edema. NEUROLOGIC: Normal. LABORATORY STUDIES: White count 8.9, hemoglobin 13, hematocrit 38, platelets 358. Chemistry: Sodiu m 131, potassium 4.3, chloride 94, bicarb 28, BUN 18, creatinine 0.6, blood sugar of 124. Liver func tion test is normal. IMPRESSION: 1. Lung cancer metastasized to the bone with destructive lesions. Continue Decadron. Continue radi ation therapy. 2. Chronic severe back pain, thoracic area. Continue Dilaudid 2 mg IV q. 3 hours. Continue Durages ic patch, which is increased to 100 and continue oxycodone 10 mg every 4 hours p.r.n. 3. Chronic opioid induced constipation. The patient got Relistor. Will add Fleet enema tonight and discuss with Dr. Reagan Antoine. Will continue that. Will also continue MiraLax and other Colace for bowel movements. PLAN: To continue current treatment. The patient is walking. Continue gastrointestinal and deep ve in thrombosis prophylaxis. We will follow up clinically. Gary Fermin MD cc: [phone] TT: 10/25/2016 08:41:09 Confirmation # [id number] Dictation # [id number] en
[2016-10-25] MEDS: Dexamethasone 4 mg/1 ml IVP SCH ×2 (09:12→22:14)
[2016-10-25] MEDS: Bisacodyl 5mg EC Tab PO SCH ×3 (09:13→17:37)
[2016-10-25] MEDS: guaiFENesin-DM 600-30 mg ER Tab PO SCH ×2 (09:15→17:39)
[2016-10-25] MEDS: POLYETHYLENE GLYCOL 3350 17 GM/Dose PACKET PO SCH ×2 (09:15→17:39)
[2016-10-25] MEDS: Lidocaine 5% Patch TD SCH (10:58)
--- NOTE | 2016-10-25 14:50 | PN ---
DATE: 10/25/2016 This is the patient's hospital visit on the TCU. For Dr. Leary. SUBJECTIVE: The patient is a 56-year-old male seen lying awake in bed with his neck pain modestly im proved, now complaining of right rib discomfort. He is known to suffer from intractable pain of can er with locally advanced stage IV poorly differentiated nonsmall cell CA of the lung involving the ve rtebral bodies T3-T4. It should be noted that the patient did have a biopsy done on 10/18/2016 with the suspicion at that time of poorly differentiated nonsmall cell CA of the lung, with confirmation n ow being received after testing that was reported by Dr. Leary that this is indeed the diagnosis, a s there was consideration it may have been a mesothelioma. He continues radiation and is in no acute distress this visit on his narcotic analgesics. PHYSICAL EXAMINATION: VITAL SIGNS: Temperature 98.9, pulse 75, respirations 16, blood pressure 106/72, pulse ox 100%. HEENT: Unremarkable. NECK: Supple with no tenderness to palpation on the right side of his neck this visit. HEART: Regular rate. LUNGS: Occasional rhonchi. ABDOMEN: Soft, nontender. EXTREMITIES: No edema. SKIN: Warm, dry and clear. NEUROLOGIC: Awake and alert. LABORATORY DATA: The patient's labs were done yesterday and will be repeated as per Dr. Fermin. ASSESSMENT: For this patient is that of deconditioning, intractable pain of cancer, locally advanced stage IV poorly differentiated nonsmall cell carcinoma of the lung involving the vertebral bodies, h istory of metal plate in his back with discopathy, history of neck surgery for paraspinal mass with b rachioplexus compression, left adrenal mass, severe spinal stenosis, smoking history, constipation. PLAN: For this patient is to continue present medical regimen with radiation. With this, will ventura nue his narcotic analgesics along with TCU protocols. The prognosis for this patient is guarded. Reagan Antoine MD cc: [phone] TT: 10/25/2016 14:49:59 Confirmation # [id number] Dictation # [id number] mn
[2016-10-25] MEDS ORDERED: Aluminum Hydroxide/Magnesium 30 ML, DiphenhydrAMINE 75 MG, Lidocaine 2% Viscous 30 ML PO PRN ×2 (16:09→17:00)
--- NOTE | 2016-10-25 16:27 | CP.PCM.CON ---
History of Present Illness - History of Present Illness History of Present Illness: 56 year old [place] male with PMH of COPD was initially admitted because of right neck and shoulder pain. Work up revealed that he has lung mass on the right apex with invasion of the posterior chest wall and the T2 and T3 vertebra. He has now undergone radiotherapy as well and also undergoing pain control. He is now transferred to [facility] for continued medical therapy and physical rehab. Infectious Diseases consult is requested apparently because the patient has a positive Quantiferon Gold TB test result. However, I am currently unable to verify this and the microlab does not have the result. 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 This apparently happened 15 years ago. Currently the patient does not complain of cough, no sputum production currently, denies hemoptysis, denies fevers or night sweats but has had weight loss over the past few months, no nausea or vomiting, no headache or dizziness, no chest pain, no headahce or dizziness, no diarrhea, no dysuria. Patient is from [place]. Review of Systems - Review of Systems All systems: reviewed and no additional remarkable complaints except (as per HPI ) Past Patient History - Past Social History Smoking Status: Heavy Smoker > 10 Cigarettes Daily - CARDIAC Hx Cardiac Disorders: No - PULMONARY Hx Respiratory Disorders: No - NEUROLOGICAL Hx Neurological Disorder: No Hx Alzheimer's Disease: No - HEENT Hx HEENT Problems: No - RENAL Hx Chronic Kidney Disease: No - ENDOCRINE/METABOLIC Hx Endocrine Disorders: No - HEMATOLOGICAL/ONCOLOGICAL Hx Blood Disorders: No - INTEGUMENTARY Hx Dermatological Problems: No - MUSCULOSKELETAL/RHEUMATOLOGICAL Hx Falls: No - GASTROINTESTINAL Hx Gastrointestinal Disorders: No - GENITOURINARY/GYNECOLOGICAL Hx Reproductive Disorders: No - PSYCHIATRIC Hx Substance Use: No - SURGICAL HISTORY Hx Surgeries: Yes - ANESTHESIA Hx Anesthesia Reactions: No Hx Malignant Hyperthermia: No Meds Allergies/Adverse Reactions: Allergies Allergy/AdvReac Type Severity Reaction Status Date / Time Penicillins Allergy ANAPHYLAXIS Verified 10/19/16 15:30 - Medications Medications: Current Medications Acetaminophen (Tylenol 325mg Tab) 650 mg PO Q6H PRN; Protocol PRN Reason: Fever >100.4 F Albuterol/Ipratropium (Duoneb 3 Mg/0.5 Mg (3 Ml) Ud) 3 ml IH [id number] [facility] PRN Reason: Protocol Last Admin: 10/24/16 20:58 Dose: Not Given Bisacodyl (Dulcolax) 5 mg PO TID [facility] PRN Reason: Protocol Last Admin: 10/24/16 17:15 Dose: 5 mg Dexamethasone (Decadron Inj) 4 mg IVP Q12 [facility] PRN Reason: Protocol Docusate Sodium (Colace) 100 mg PO BID [facility] PRN Reason: Protocol Last Admin: 10/24/16 17:14 Dose: 100 mg Enoxaparin Sodium (Lovenox) 40 mg SC 0600 [facility] PRN Reason: Protocol Last Admin: 10/24/16 06:12 Dose: 40 mg Fentanyl (Duragesic) 1 patch TD Q72H [facility] Last Admin: 10/24/16 08:20 Dose: 1 patch Guaifenesin/Dextromethorphan (Mucinex-Dm 600-30 Mg) 1 tab PO BID [facility] Last Admin: 10/24/16 17:18 Dose: 1 tab Hydromorphone HCl (Dilaudid) 3 mg IVP Q3H PRN; Protocol PRN Reason: Pain, moderate (4-7) Last Admin: 10/24/16 21:48 Dose: 3 mg Lidocaine (Lidoderm) 2 ea TD DAILY [facility] PRN Reason: Protocol Last Admin: 10/24/16 09:39 Dose: 2 ea Ondansetron HCl (Zofran Inj) 4 mg IVP Q6H PRN; Protocol PRN Reason: Nausea/Vomiting Oxycodone HCl (Oxycodone Immediate Release Tab) 10 mg PO Q4 PRN; Protocol PRN Reason: Pain, Mild (1-3) Pantoprazole Sodium (Protonix Ec Tab) 40 mg PO 0630 [facility] PRN Reason: Protocol Last Admin: 10/24/16 06:13 Dose: 40 mg Polyethylene Glycol (Miralax) 17 gm PO BID [facility] Last Admin: 10/24/16 17:23 Dose: 17 gm Pregabalin (Lyrica) 50 mg PO TID [facility] Last Admin: 10/24/16 18:32 Dose: 50 mg Physical Exam - Constitutional Appears: Non-toxic, No Acute Distress, Cachectic, Chronically Ill - Head Exam Head Exam: NORMAL INSPECTION - ENT Exam ENT Exam: Mucous Membranes Moist - Neck Exam Neck exam: Negative for: Lymphadenopathy, Meningismus - Respiratory Exam Respiratory Exam: Decreased Breath Sounds - Cardiovascular Exam Cardiovascular Exam: +S1, +S2 - GI/Abdominal Exam GI & Abdominal Exam: Soft. absent: Tenderness Results - Vital Signs Recent Vital Signs: Last Vital Signs Temp 98.8 F 10/24/16 16:00 Pulse 78 10/24/16 16:00 Resp 14 10/24/16 16:00 BP 111/72 10/24/16 16:00 Pulse Ox 96 10/23/16 10:00 - Labs Result Diagrams: 10/24/16 05:30 10/24/16 05:30 Labs: Laboratory Results - last 24 hr 10/24/16 10/24/16 05:30 05:30 WBC 8.9 D RBC 4.12 Hgb 13.0 L Hct 38.0 L MCV 92.2 MCH 31.6 MCHC 34.2 RDW 13.9 Plt Count 358 MPV 9.5 Gran % 81.1 H Lymph % (Auto) 13.4 L Oliver % (Auto) 5.3 Eos % (Auto) 0.1 L Baso % (Auto) 0.1 Gran # 7.21 H Lymph # 1.2 Oliver # 0.5 Eos # 0.0 Baso # 0.01 Sodium 131 L Potassium 4.3 Chloride 94 L Carbon Dioxide 28 Anion Gap 13 BUN 18 Creatinine 0.6 Est GFR ( Amer) > 60 Est GFR (Non-Af Amer) > 60 Random Glucose 124 H Calcium 9.2 Total Bilirubin 0.6 AST 26 ALT 40 Alkaline Phosphatase 81 Total Protein 7.1 Albumin 4.0 Globulin 3.1 Albumin/Globulin Ratio 1.3 Assessment & Plan - Assessment and Plan (Free Text) Plan: Assessment Questionable history of pulmonary TB in the past, unable to verify positive Quantiferon TB test Rigt lung mass, which is poorly-differentiated non-small cell lung cancer on pathology S/P biopsy 10/16/2016 on radiotherapy COPD Plan Will order Quantiferon TB test; right lung mass is already verified by pathology as lung cancer and not TB Will monitor clinically Overall prognosis is poor
[2016-10-25] MEDS: Nystatin 100,000 Units/ml Oral Susp 5 ml UD PO SCH ×2 (17:39→22:15)
[2016-10-25] MEDS ORDERED: Aluminum Hydroxide/Magnesium 30 ML, DiphenhydrAMINE 75 MG, Lidocaine 2% Viscous 30 ML PO SCH (17:54)
[2016-10-25] MEDS: Aluminum Hydroxide/Magnesium 30 ML, DiphenhydrAMINE 75 MG, Lidocaine 2% Viscous 30 ML PO SCH ×2 (18:31→22:16)
--- NOTE | 2016-10-25 20:29 | PN ---
DATE: 10/25/2016 REFERRING PHYSICIAN: Dr. Fermin. SUBJECTIVE: He is lying in the bed complaining about right shoulder, upper back persistent pain. Mi ld cough, no sputum production. No nausea or vomiting. No leg pain or leg swelling. OBJECTIVE: GENERAL: In no acute distress. VITAL SIGNS: Temp is 98, heart rate is 79, respiratory rate is 18, blood pressure 102/70, pulse ox 1 00% on room air. HEENT: Moist mucous membrane. Crowded airway. NECK: Supple, no JVD. LUNGS: Decreased breath sounds in the right lung. HEART: S1, S2. ABDOMEN: Soft, nontender. No organomegaly. EXTREMITIES: There is no edema. NEUROLOGIC: Awake, alert, follows simple commands. MEDICATIONS: He is on Colace 100 mg twice a day, Decadron 4 mg q.12 hours, Diflucan 100 mg daily, Di laudid 3 mg q.3 hours p.r.n., Dulcolax p.r.n. basis, DuoNeb q.6 hours, Duragesic patch q.72 hours, Fl exeril 10 mg b.i.d., Lidoderm patch at affected area, Lovenox 40 mg daily, Lyrica mg 3 times a day, Mucinex DM 600 mg twice a day, nystatin oral q.i.d., oxycodone 10 mg q.4 hours p.r.n., Protonix 40 mg daily, Tylenol p.r.n. basis, Zofran p.r.n. basis. LABORATORY DATA: Reviewed. No new lab is available. IMPRESSION AND PLAN: Unresectable lung cancer, which is adenocarcinoma involving the bones with sid re pain, chronic obstructive lung disease. Also seen by infectious disease. Pulmonary point of view , continue bronchodilator, gastric prophylaxis, DVT prophylaxis. The patient is on steroids. Contin ue stool softeners. I spoke to nursing staff. Pain management consult with Dr. Eli has been maegan led. The patient may benefit from a nerve block with severe pain, which is not improving with radiat ion therapy. Thank you and will follow with you. Elisabet Pelaez MD cc: [phone] TT: 10/25/2016 20:29:03 Confirmation # [id number] Dictation # [id number] dn
[2016-10-26] MEDS: HYDROmorphone 2 mg/ml ISec IVP PRN ×6 (00:54→21:31)
[2016-10-26] MEDS: oxyCODONE 5 mg Immediate Release Tab PO PRN ×2 (02:57→07:27)
[2016-10-26] MEDS: Pantoprazole 40 mg EC Tab PO SCH (05:34)
[2016-10-26] MEDS: Enoxaparin 40 mg Syringe SC SCH (06:28)
[2016-10-26] MEDS: Albuterol-Ipratrop 3 mg / 0.5 (3 ml) UD IH SCH ×3 (07:19→21:48)
[2016-10-26] MEDS: Aluminum Hydroxide/Magnesium 30 ML, DiphenhydrAMINE 75 MG, Lidocaine 2% Viscous 30 ML PO SCH ×4 (07:55→21:35)
[2016-10-26] MEDS: Nystatin 100,000 Units/ml Oral Susp 5 ml UD PO SCH ×2 (09:41→13:01)
[2016-10-26] MEDS: POLYETHYLENE GLYCOL 3350 17 GM/Dose PACKET PO SCH ×2 (09:42→18:09)
[2016-10-26] MEDS: Bisacodyl 5mg EC Tab PO SCH ×3 (09:42→18:10)
[2016-10-26] MEDS: guaiFENesin-DM 600-30 mg ER Tab PO SCH ×2 (09:43→18:07)
[2016-10-26] MEDS: Lidocaine 5% Patch TD SCH (09:44)
[2016-10-26] MEDS: Dexamethasone 4 mg/1 ml IVP SCH ×2 (09:44→21:30)
--- NOTE | 2016-10-26 10:16 | PN ---
DATE: 10/25/2016 The patient had radiation today. He complained of more pain in his back. He did move his bowels aft er the Fleet enema. He has no chest pain, no short of breath. He is walking around, but he has prio r pain in his back, 8/10, 9/10 with the current pain medicine. PHYSICAL EXAMINATION: VITAL SIGNS: Temperature 98.2, heart rate 79, blood pressure 106/73, respirations 16, saturation 100 %. HEAD AND NECK: Normal. No JVD, no thyromegaly. CHEST: Clear, good air entry. CARDIAC: First sound, second sound normal. ABDOMEN: Soft, nontender. EXTREMITIES: No edema. NEUROLOGIC: Normal. BACK: Exam is very tender to touch. IMPRESSION AND PLAN: 1. Lung cancer, stage IV poorly differentiated adenocarcinoma. Follow up with Dr. Leary with chem otherapy after radiation. 2. Back pain. Severe intractable back pain secondary to bony metastases due to lung cancer. Contin ue radiation therapy. Continue Decadron. We will increase Duragesic patch to 125 mcg and will add F lexeril [address] Gary Eli for interventional pain management. 3. Chronic constipation. Continue Relistor. Continue Fleet enema, Dulcolax, lactulose p.r.n. We w ill follow up clinically. 4. Chronic obstructive pulmonary disease. 5. Positive gold TB test. We will follow up with the infectious disease consult, Dr. Thurman and we will follow their recommendations. Continue current treatment for now. Follow up clinically. Gary Fermin MD cc: [phone] TT: 10/26/2016 10:15:53 Confirmation # [id number] Dictation # [id number] tn
--- NOTE | 2016-10-26 13:29 | PN ---
DATE: 10/26/2016 The patient seen earlier today in room 327, bed 2. No fevers, no chills, no nausea or vomiting. PHYSICAL EXAMINATION: VITAL SIGNS: Temperature is 98, blood pressure is 102/70, respiratory rate of 16. HEENT: Unremarkable. NECK: Supple. LUNGS: Have decreased breath sounds. HEART: Normal S1, S2. ABDOMEN: Soft. LABORATORY DATA: Reveals a white count of 8.9, hemoglobin of 13, platelets of 358. Chemistries reve al a BUN of 18, creatinine of 0.6. Microbiology is noted. Dr. Fermin's note is reviewed from today. Review of orders reveals the patient to be on p.o. Difluca n. The patient is on Decadron. ASSESSMENT AND PLAN: A 56-year-old [place]ian male with chronic obstructive lung disease, history of t uberculosis possibly in the past and a right lung mass which is diagnosed as poorly differentiated no nsmall cell lung cancer, status post biopsy, currently off of antibiotics. Will follow with you. Jonah Thurman MD cc: [phone] TT: 10/26/2016 13:28:45 Confirmation # [id number] Dictation # [id number] doron
--- NOTE | 2016-10-26 15:30 | PN ---
DATE: 10/26/2016 This is the patient's hospital visit on the TCU. For Dr. Leary. SUBJECTIVE: The patient is a 56-year-old male seen lying awake in bed, reporting that his neck pain is improved with minimal right shoulder discomfort and minimal difficulty, discomfort with swallowing . He is otherwise without complaint, reporting that the narcotic analgesics helped his pain, known t o suffer from stage IV poorly differentiated nonsmall cell CA of the lung involving the vertebral bod ies T3-T4. He participates with reconditioning and with radiation as indicated. PHYSICAL EXAMINATION: VITAL SIGNS: Temperature 98.2, pulse , respirations 18, blood pressure 102/70, pulse ox 100%. HEENT: Unremarkable. The oral mucosa appears within normal limits. NECK: Supple. HEART: Regular rate. LUNGS: Decreased breath sounds on the right. ABDOMEN: Soft, nontender. EXTREMITIES: No edema. SKIN: Warm, dry and clear. NEUROLOGIC: Awake, alert, and oriented x 3. LABORATORY DATA: The patient's labs were done 2 days prior. They will be repeated in the morning. ASSESSMENT: Deconditioning, intractable pain of cancer, locally advanced stage IV poorly differentia fernanda nonsmall cell cancer of the lung involving the vertebral bodies, history of metal plate in his ba ck with discopathy, history of neck surgery for paraspinal mass with brachial plexus compression, lef t adrenal mass, history of spinal stenosis, smoking history, constipation, history of tuberculosis wi QuantiFERON-TB gold test pending as per Dr. Thurman and Dr. Rich. PLAN: The patient is to continue present medical regimen. We will offer saline gargles at the [facility] for his throat discomfort. He continues Diflucan 100 mg a day with narcotic analgesics for his pa in and a fentanyl patch 100 mg an hour, along with a Lidoderm patch and Lovenox. As he is already ta keli the Diflucan, we will discontinue his Nystatin oral suspension. We will monitor clinically and check his labs in the morning. He also continues Decadron 4 mg IV q. 12 hours. Reagan Antoine MD cc: [phone] TT: 10/26/2016 15:29:58 Confirmation # [id number] Dictation # [id number] rn
--- NOTE | 2016-10-26 19:19 | PN ---
DATE: 10/26/2016 REFERRING PHYSICIAN: Dr. Fermin. SUBJECTIVE: He is lying in the bed, head at 45 degrees. Feels a little better. Still has some coug h and sputum production. Still has right shoulder, upper back pain. No nausea, no vomiting, no diar alin. No leg pain or leg swelling. OBJECTIVE: GENERAL: In no acute distress. VITAL SIGNS: Temp is 99, heart rate 84, respiratory rate is 20, blood pressure 125/75, pulse ox 96% on room air. HEENT: Moist mucous membranes. Small oral cavity. NECK: Supple. No JVD. LUNGS: Has decreased breath sounds in the right lung. HEART: S1, S2. ABDOMEN: Soft, nontender. No organomegaly. EXTREMITIES: There is no edema. NEUROLOGIC: Awake, alert, follows simple commands. MEDICATIONS: He is on Colace 100 mg twice, Decadron 4 mg q.12 hours, Diflucan 100 mg daily, Dilaudid 2 mg IV q.3 hours p.r.n., Dulcolax 5 mg 3 times a day, albuterol-Atrovent nebulizer q.6 hours, Durag esic patch q.72 hours, Flexeril 10 mg twice a day, Lidoderm patch to affected area, Lovenox 40 mg svitlana ly, Lyrica 50 mg 3 times a day, getting oral Magic solution swish and spit, MiraLax 17 grams daily, M ucinex DM 600 mg twice a day, oxycodone immediate release 10 mg q.4 hours p.r.n., Protonix 40 mg major y, Tylenol p.r.n. basis, Zofran p.r.n. basis. LABORATORY DATA: Reviewed. No new lab is available since yesterday. IMPRESSION AND PLAN: Unresectable lung cancer with metastatic disease to bone, has upper back and right shoulder pain, chronic obstructive lung disease. Pain management being consulted. Probabl y will benefit from nerve block. Will decrease Decadron. Continue bronchodilators and pain manageme nt. Gastric prophylaxis, deep venous thrombosis prophylaxis. Thank you and will follow with you. Elisabet Pelaez MD cc: [phone] TT: 10/26/2016 19:18:31 Confirmation # [id number] Dictation # [id number] dn
[2016-10-27] MEDS: HYDROmorphone 2 mg/ml ISec IVP PRN ×6 (01:40→20:00)
[2016-10-27] MEDS: Albuterol-Ipratrop 3 mg / 0.5 (3 ml) UD IH SCH ×4 (03:26→22:18)
[2016-10-27] MEDS: oxyCODONE 5 mg Immediate Release Tab PO PRN (04:06)
[2016-10-27] MEDS: Enoxaparin 40 mg Syringe SC SCH (05:14)
[2016-10-27] MEDS: Pantoprazole 40 mg EC Tab PO SCH (05:35)
[2016-10-27 07:50] LABS: ADD MANUAL DIFF? NO
[2016-10-27 07:56] LABS: BASO # 0.03 K/mm3 (0.0-2.0); BASO % 0.3 % (0.0-3.0); EOS # 0.1 (0.0-0.7); EOS % 0.5 % (1.5-5.0); GRAN # 7.08 (1.4-6.5); GRAN % 76.8 % (50.0-68.0); HEMATOCRIT 34.7 % (42.0-52.0); LYMPH # 1.3 (1.2-3.4); LYMPH % 13.9 % (22.0-35.0); MEAN CORPUSCULAR HEMOGLOBIN 31.1 pg (25.0-35.0); MEAN CORPUSCULAR HGB CONC 33.4 g/dl (31.0-37.0); MEAN PLATELET VOLUME 9.5 fl (7.0-11.0); MONO # 0.8 (0.1-0.6); MONO % 8.5 % (1.0-6.0); PLATELET COUNT 313 10^3/uL (120.0-450.0); WHITE BLOOD COUNT 9.2 10^3/ul (4.5-11.0)
[2016-10-27 08:05] LABS: ALB/GLOB RATIO 1.2 (1.1-1.8); ALKALINE PHOSPHATASE 90 U/L (38-133); ALT/SGPT 45 U/L (7-56); AST/SGOT 25 U/L (15-59); BILIRUBIN,TOTAL 0.4 mg/dL (0.2-1.3); BLOOD UREA NITROGEN 18 mg/dL (7-21); CALCIUM 8.7 mg/dL (8.4-10.5); CARBON DIOXIDE 28 mmol/L (21-33); CHLORIDE 95 mmol/L (98-107); GFR AFRICAN-AMERICAN > 60; GLUCOSE,RANDOM 163 mg/dL (70-110); POTASSIUM 4.2 mmol/L (3.6-5.0); SODIUM 131 mmol/L (132-148); TOTAL PROTEIN 6.7 g/dL (5.8-8.3)
[2016-10-27] MEDS: Dexamethasone 4 mg/1 ml IVP SCH ×2 (10:15→22:28)
[2016-10-27] MEDS: guaiFENesin-DM 600-30 mg ER Tab PO SCH ×2 (10:16→17:56)
[2016-10-27] MEDS: Bisacodyl 5mg EC Tab PO SCH ×3 (10:16→17:55)
[2016-10-27] MEDS: Lidocaine 5% Patch TD SCH (10:16)
[2016-10-27] MEDS: Aluminum Hydroxide/Magnesium 30 ML, DiphenhydrAMINE 75 MG, Lidocaine 2% Viscous 30 ML PO SCH ×4 (10:16→22:15)
[2016-10-27] MEDS: POLYETHYLENE GLYCOL 3350 17 GM/Dose PACKET PO SCH ×2 (10:16→17:56)
--- NOTE | 2016-10-27 11:04 | PN ---
DATE: 10/27/2016 The patient is in bed, in no acute distress, nontoxic. PHYSICAL EXAMINATION: VITAL SIGNS: Temperature is 98, blood pressure is 108/60, respiratory rate of 20. HEENT: Unremarkable. NECK: Supple. LUNGS: Have decreased breath sounds. HEART: Normal S1, S2. ABDOMEN: Soft, nontender. LABORATORY EXAMINATION: Reveals a white count of 9, hemoglobin of 11. BUN of 18, creatinine of 0.7. Microbiology is noted. Review of orders reveals the patient to be on p.o. Diflucan. Dr. Pelaez's note is reviewed from [facility]. Dr. Reagan Antoine's note is reviewed. ASSESSMENT AND PLAN: A 56-year-old [place] male with chronic obstructive lung disease, history of t uberculosis possibly in the past. Admitted with a right lung mass that is poorly differentiated nons mall cell lung cancer, status post biopsy, nonresectable. The patient does have metastases to bone i n the upper back and the right shoulder, possibly a positive QuantiFERON versus indeterminate QuantiF CHRIS, of little significant for this patient who has an aggressive malignancy with metastases. Nerve block is in the differential. The patient also with a left adrenal mass. We will discuss with onco logy if there is any chemo planned. Would recommend a hospice setting for this patient. Jonah Thurman MD cc: [phone] TT: 10/27/2016 11:03:43 Confirmation # [id number] Dictation # [id number] en
--- NOTE | 2016-10-27 15:42 | PN ---
DATE: 10/27/2016 This is the patient's hospital visit on the TCU floor. For Dr. Leary. SUBJECTIVE: The patient is a 56-year-old male with severe neck and right shoulder pain, difficulty s wallowing, modestly improved now after saline gargles were initiated. 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 He was particip ating with radiation, which is now not being given over the weekend. He reports his pain is consider able with his analgesics helping his pain. OBJECTIVE AND PHYSICAL EXAMINATION: VITAL SIGNS: Temperature 98.1, pulse 81, respirations 20, blood pressure 108/66, pulse ox 97%. HEENT: Unremarkable with tenderness to gentle palpation of the right lateral neck. Inspection to th e oropharynx shows no significant change, no yeast. NECK: Otherwise supple. HEART: Regular rate. LUNGS: Decreased breath sounds on the right greater than left. ABDOMEN: Soft. EXTREMITIES: No edema. SKIN: Warm, dry and clear. NEUROLOGIC: Awake and alert and oriented x 3. The patient's labs were done. White blood cell count of 9.2, hemoglobin 11.6, hematocrit of 34.7, pl atelet count of 313,000. A chem metabolic panel showing a sodium of 131, chloride of 95, nonfasting glucose 163. ASSESSMENT: Intractable pain of cancer, deconditioning, locally advanced stage IV poorly differentia fernanda nonsmall cell cancer of the lung involving the vertebral bodies, history of metal plate in his ba ck , left adrenal mass, spinal stenosis, constipation, history of tuberculosis with workup in pr ogress. Also, history of paraspinal mass with brachial plexus compression. PLAN: To continue the present medical regimen with analgesics to continue, significant doses, with c onsult requested with Dr. Gary Eli, pain medical economics consultant, with the prognosis for this patient guarde d. Resume radiation when possible. We will monitor clinically as indicated. Awaiting QuantiFERON-T B Gold test to be returned. Also, questionable consideration for evaluation of syndrome of inappropr iate antidiuretic hormone secretion as per his primary doctor, Dr. Fermin. Reagan Antoine MD cc: [phone] TT: 10/27/2016 15:41:25 Confirmation # [id number] Dictation # [id number] en
--- NOTE | 2016-10-27 19:45 | PN ---
DATE: 10/27/2016 REFERRING PHYSICIAN: Dr. Fermin. SUBJECTIVE: He is lying in the bed, sleepy, arousable. Still having cough and shortness of breath. Still having upper back, shoulder and arm pain. No nausea, no vomiting, no diarrhea. No leg pain o r leg swelling. OBJECTIVE: GENERAL: No acute distress. VITAL SIGNS: Temp is 98, heart rate is 81, respiratory rate is 20, blood pressure 108/66, pulse ox 9 7% on room air. HEENT: Moist mucous membranes. No ulcer or thrush noted. NECK: Supple. No JVD. LUNGS: Have scattered rhonchi. HEART: S1 and S2. MUSCULOSKELETAL: Right upper chest and upper back tenderness on palpation. EXTREMITIES: There is no edema. NEUROLOGIC: Awake, alert, follows simple commands. MEDICATIONS: He is on Colace 100 mg twice a day, Decadron 2 mg q. 12 hours, Diflucan 100 mg daily, D ilaudid 3 mg q. 3 hours p.r.n., Dulcolax 5 mg 3 times a day, DuoNeb q. 6 hours, Duragesic patch q. 72 hours, Flexeril 10 mg twice a day, Lidoderm patches at affected area, Lovenox 20 mg daily, Lyrica 50 mg 3 times a day, MiraLax 17 grams twice a day, Mucinex DM 1 cap twice a day, oxycodone immediate re lease 10 mg q. 4 hours p.r.n., Protonix 40 mg daily, Tylenol on a p.r.n. basis, Zofran on a p.r.n. ba sis. LABORATORY DATA: Shows hemoglobin 11.6, hematocrit 34.7, WBC 9.2, platelet count is 313. Sodium 131 , potassium 4.2, chloride 95, bicarbonate 28, BUN 18, creatinine 0.7, glucose 163, calcium 8.7, AST 2 5, ALT 45, alk phos is 90, albumin is 3.6 IMPRESSION AND PLAN: Unresectable lung cancer with metastatic disease to bone and spine with upper b ack and chest pain, chronic obstructive lung disease. On radiation therapy, pain management, stool s oftener. Being followed by infectious disease. Also, getting Decadron. Awaiting for pain managemen t intervention with probably with a nerve block. I spoke to nursing staff. I also spoke to oncology services. Thank you and will follow with you. Elisabet Pelaez MD cc: [phone] TT: 10/27/2016 19:44:58 Confirmation # [id number] Dictation # [id number] mn
[2016-10-28] MEDS: HYDROmorphone 2 mg/ml ISec IVP PRN ×7 (01:40→23:38)
[2016-10-28] MEDS: Albuterol-Ipratrop 3 mg / 0.5 (3 ml) UD IH SCH ×4 (03:00→21:04)
[2016-10-28] MEDS: oxyCODONE 5 mg Immediate Release Tab PO PRN ×3 (04:18→18:25)
[2016-10-28] MEDS: Enoxaparin 40 mg Syringe SC SCH (05:59)
[2016-10-28] MEDS: Pantoprazole 40 mg EC Tab PO SCH (07:44)
[2016-10-28] MEDS: Aluminum Hydroxide/Magnesium 30 ML, DiphenhydrAMINE 75 MG, Lidocaine 2% Viscous 30 ML PO SCH ×4 (08:33→21:59)
[2016-10-28] MEDS: Dexamethasone 4 mg/1 ml IVP SCH ×2 (09:07→21:55)
[2016-10-28] MEDS: Bisacodyl 5mg EC Tab PO SCH ×3 (11:31→18:20)
[2016-10-28] MEDS: Lidocaine 5% Patch TD SCH (11:32)
[2016-10-28] MEDS: POLYETHYLENE GLYCOL 3350 17 GM/Dose PACKET PO SCH ×2 (11:33→18:23)
[2016-10-28] MEDS: guaiFENesin-DM 600-30 mg ER Tab PO SCH ×2 (11:33→18:24)
--- NOTE | 2016-10-28 13:00 | PN ---
DATE: 10/28/2016 The patient is in bed, in no acute distress, nontoxic. PHYSICAL EXAMINATION: VITAL SIGNS: Temperature is 98, blood pressure is 108/60, respiratory rate of 16. HEENT: Unremarkable. NECK: Supple. LUNGS: Have decreased breath sounds. HEART: Normal S1, S2. ABDOMEN: Soft, nontender. LABORATORY DATA: Reveals a white count of 9.2, hemoglobin of 11, platelets of 315. Chemistries are noted. Microbiology is noted. Review of the orders reveals the patient to be on p.o. fluconazole. ASSESSMENT AND PLAN: This is a 56-year-old Russian male with chronic obstructive lung disease and h istory of tuberculosis possibly in the past, admitted with a right lung mass, poorly differentiated n onsmall cell lung cancer, status post biopsy, which is nonresectable. The patient does have metastas es to the bone, upper back and right shoulder. Does have a possible positive QuantiFERON versus inte rmediate, unable to find the results. Currently off of antibiotics, afebrile. The patient is a good patient for a hospice setting. Jonah Thurman MD cc: [phone] TT: 10/28/2016 13:00:16 Confirmation # [id number] Dictation # [id number] sary
--- NOTE | 2016-10-28 16:54 | PN ---
DATE: 10/28/2016 This is the patient's hospital visit on the TCU floor. For Dr. Leary. SUBJECTIVE: The patient is a 56-year-old male admitted for reconditioning to TCU with severe neck an d right shoulder pain, difficulty swallowing is now modestly improved, however. He is known to have stage IV poorly differentiated nonsmall cell CA of the lung involving the vertebral bodies T3, T4. H e was evaluated by neurosurgeon with no surgical intervention planned. He continues with radiation t reatment, 6 of 10 have been completed so far. However, the patient is still complains of significant pain to his right neck. He must walk with his head tilted to the right side with analgesics helping his pain but not relieving it completely. After conversation with Dr. Eli's associate, he plans to see the patient tomorrow for evaluation of the patient's pain. PHYSICAL EXAMINATION: VITAL SIGNS: Temperature 98.1, pulse 81, respirations 20, blood pressure 108/66, pulse ox 97%. HEENT: Unremarkable. NECK: Supple, however, he favors the right side with minimal tenderness to gentle palpation on the r ight neck. HEART: Regular rate. LUNGS: Decreased breath sounds on the right greater than left. ABDOMEN: Soft. EXTREMITIES: No edema. SKIN: Warm, dry and clear. NEUROLOGIC: Awake, alert. LABORATORY DATA: The patient's labs were done yesterday and will be repeated tomorrow. The patient did have QuantiFERON TB testing sent as per Dr. Fermin for history of suspicion of being treated for tuberculosis earlier. ASSESSMENT: For this patient is that of intractable pain of cancer, deconditioned, locally advanced stage IV poorly differentiated nonsmall cell carcinoma of the lung involving the vertebral bodies, hi story of metal plate in his back, left adrenal mass, spinal stenosis, constipation, history of tuberc ulosis? PLAN: After conversation with Dr. Leary and Dr. Eli's associate, we await evaluation for analg esics, possibly injection to his painful area in the right neck, with fentanyl to continue along with parenteral narcotic analgesics pending Dr. Eli's evaluation for this patient. He continues radi ation. Will check his labs in the morning. Reagan Arash NUGENT cc: [phone] TT: 10/28/2016 16:54:25 Confirmation # [id number] Dictation # [id number] mn
--- NOTE | 2016-10-28 23:12 | PN ---
DATE: 10/28/2016 REFERRING PHYSICIAN: Dr. Fermin. SUBJECTIVE: He is out of bed to chair. Night was unremarkable. Still has a mild cough. Still has a significant right shoulder, upper back, and chest pain. No nausea, no vomiting, and no diarrhea. Does have constipation. No leg pain or leg swelling. OBJECTIVE: GENERAL: No acute distress. VITAL SIGNS: Temp is 98, heart rate is 81, respiratory rate is 20, blood pressure 108/66, pulse ox 9 7% on room air. HEENT: Moist mucous membrane. No ulcer or oral thrush noted. NECK: Supple. JVD. LUNGS: Has decreased breath sounds in the right lung. HEART: S1, S2. ABDOMEN: Soft, nontender. No organomegaly. EXTREMITIES: There is no edema. NEUROLOGIC: Awake, alert, follows simple command. MEDICATIONS: He is on Colace 100 mg twice a day, Decadron 2 mg q. 12 hours, Diflucan 100 mg daily, _ ____ 3 mg q. 3 hours p.r.n., Dulcolax 5 mg 3 times a day, DuoNeb q. 6 hours, Duragesic patch daily, F lexeril 10 mg twice a day, Lidoderm patch daily, Lovenox 40 mg daily, Lyrica 50 mg 3 times a day, Rock aLAX 17 grams twice a day, Mucinex DM 1 tab twice a day, oxycodone immediate release 10 mg q. 4 hours p.r.n., Protonix 40 mg daily, Tylenol p.r.n., Zofran p.r.n. basis. IMPRESSION AND PLAN: Unresectable lung cancer with metastatic disease to the bone. Also involved in the spine. Chronic obstructive lung disease. Pulmonary point of view, doing okay. Continue bronch odilator. Keep head at 45 degrees. Pain management. Waiting for Dr. Wellington consult for possible n erve block, on radiation therapy. Gastric and deep venous thrombosis prophylaxis. Thank you, and will follow with you. Elisabet Pelaez MD cc: [phone] TT: 10/28/2016 23:11:27 Confirmation # [id number] Dictation # [id number] dn
[2016-10-29] MEDS: Albuterol-Ipratrop 3 mg / 0.5 (3 ml) UD IH SCH ×4 (02:21→20:27)
[2016-10-29] MEDS: HYDROmorphone 2 mg/ml ISec IVP PRN ×5 (02:35→22:09)
[2016-10-29] MEDS: oxyCODONE 5 mg Immediate Release Tab PO PRN (04:57)
[2016-10-29] MEDS: Enoxaparin 40 mg Syringe SC SCH (05:01)
[2016-10-29] MEDS: Pantoprazole 40 mg EC Tab PO SCH (06:48)
[2016-10-29 07:38] LABS: ADD MANUAL DIFF? NO
[2016-10-29 07:43] LABS: BASO # 0.02 K/mm3 (0.0-2.0); BASO % 0.2 % (0.0-3.0); EOS # 0.1 (0.0-0.7); EOS % 0.5 % (1.5-5.0); GRAN # 8.44 (1.4-6.5); GRAN % 81.7 % (50.0-68.0); HEMATOCRIT 34.6 % (42.0-52.0); LYMPH # 1.1 (1.2-3.4); LYMPH % 10.9 % (22.0-35.0); MEAN CELL VOLUME 91.8 fL (80.0-105.0); MEAN CORPUSCULAR HEMOGLOBIN 30.5 pg (25.0-35.0); MEAN CORPUSCULAR HGB CONC 33.2 g/dl (31.0-37.0); MONO # 0.7 (0.1-0.6); MONO % 6.7 % (1.0-6.0); PLATELET COUNT 268 10^3/uL (120.0-450.0); RED CELL DISTRIBUTION WIDTH 13.9 % (11.5-14.5); WHITE BLOOD COUNT 10.3 10^3/ul (4.5-11.0)
[2016-10-29 07:59] LABS: ALB/GLOB RATIO 1.1 (1.1-1.8); ALKALINE PHOSPHATASE 88 U/L (38-133); ALT/SGPT 41 U/L (7-56); AST/SGOT 29 U/L (15-59); BILIRUBIN,TOTAL 0.6 mg/dL (0.2-1.3); BLOOD UREA NITROGEN 16 mg/dL (7-21); CARBON DIOXIDE 28 mmol/L (21-33); CHLORIDE 95 mmol/L (98-107); GFR AFRICAN-AMERICAN > 60; GLUCOSE,RANDOM 107 mg/dL (70-110); SODIUM 132 mmol/L (132-148); TOTAL PROTEIN 6.9 g/dL (5.8-8.3)
--- NOTE | 2016-10-29 08:08 | PN ---
DATE: 10/28/2016 The patient was seen in transitional care unit. The patient complained of more pain. Also, he takes a lot of pain medicine which has been recently increased. Still complained of pain, which is going to be a significant part of his cancer symptoms. Right now, he is walking around, alert, awake, orie nted. PHYSICAL EXAMINATION: VITAL SIGNS: Temperature 98.4, heart rate 81, blood pressure 109/77, respirations 16, saturation 94% room air. HEAD AND NECK: Normal. No JVD, no thyromegaly. CHEST: Diminished breath sounds. CARDIAC: First sound, second sound normal. ABDOMEN: Soft. EXTREMITIES: No edema. NEUROLOGIC: Normal. LABORATORY STUDIES: Shows white count 9.2, hemoglobin 11.6, hematocrit 34.7, platelets 313. Combination Man francy cooper shows sodium 131, potassium 4.2, chloride 95, bicarb 28, BUN 18, creatinine 0.7. Liver funct ion test is normal. Blood sugar 163. IMPRESSION: 1. Lung cancer with metastasis to thoracic spine. Continue Decadron. Continue pain management, rad iation therapy. Will discuss oncology. 2. Chronic obstructive pulmonary disease, lung cancer. Continue bronchodilators. 3. Constipation, opioid induced. Continue current medication for constipation. PLAN: Continue current treatment. Waiting for her Dr. Eli for injections or intervention if possible to alleviate his symptoms. The patient also complained of dry mouth, probably due to mul tiple medications that he takes and we will continue Mycostatin, Diflucan. He seems better with that for dysphagia and swallowing problem down with the medication. Follow up clinically. Gary Fermin MD cc: [phone] TT: 10/29/2016 08:07:45 Confirmation # [id number] Dictation # [id number] en
[2016-10-29] MEDS: Aluminum Hydroxide/Magnesium 30 ML, DiphenhydrAMINE 75 MG, Lidocaine 2% Viscous 30 ML PO SCH ×4 (10:47→22:05)
[2016-10-29] MEDS: Lidocaine 5% Patch TD SCH (11:00)
[2016-10-29] MEDS: Dexamethasone 4 mg/1 ml IVP SCH ×2 (11:50→22:07)
[2016-10-29] MEDS: Bisacodyl 5mg EC Tab PO SCH ×3 (11:52→17:43)
[2016-10-29] MEDS: guaiFENesin-DM 600-30 mg ER Tab PO SCH ×2 (11:55→17:44)
[2016-10-29] MEDS: oxyCODONE 15 mg Immediate Release Tab PO PRN ×2 (14:41→19:03)
[2016-10-29] MEDS: POLYETHYLENE GLYCOL 3350 17 GM/Dose PACKET PO SCH ×2 (14:46→17:44)
--- NOTE | 2016-10-30 00:01 | PN ---
DATE: 10/29/2016 LOCATION: The patient is in room 327, bed 2. PROBLEMS: This is a 56-year-old male who was admitted to the acute side with worsening pain over the right scapula posteriorly extending to the shoulder and down to his right arm along the distribution of the cervical plexus, found to have a large lesion in the right upper lobe of the lung, which was extending into the vertebral body affecting T3-T4 without any cord compression. Was started on emerg ency radiation. Also had a CT-guided biopsy confirming it to be a poorly differentiated nonsmall vik l carcinoma of the lung. The patient was started on IV narcotics and then getting switched over to f entanyl patches and p.o. medicines, which helps to some degree the pain, but, it is not relieved comp letely. He was evaluated by the neurosurgeon without any surgical intervention being planned for now . He has received 6 of 10 radiation treatments, still complains of pain in the back of his neck and over the scapula. He walks with his head tilted to the right side in order to alleviate the pain. W e are waiting for Dr. Eli, the pain specialist, to see him to see if he is a candidate for any lo maegan block. PHYSICAL EXAMINATION: GENERAL: The patient is awake, alert, and oriented, in significant pain. Pain scale on a scale of 0 -10 is at least 7 or 8 at times. VITAL SIGNS: T-max is 98.4, respirations 20, blood pressure is 108/66, pulse ox is 97%. HEENT: Head is normocephalic, atraumatic. The patient has radiation kwong. Complaining of pain in nape of the neck, going to the scapula and the right shoulder, radiating down to the posterior aspect of the right arm. NECK: Supple, but, he favors the right side with minimal tenderness to gentle palpation on the right neck. HEART: Reveals S1 and S2 to be normal. No gallop or murmur is heard. LUNGS: Reveal decreased breath sounds on the right upper lobe posteriorly. ABDOMEN: Soft, nontender. Liver and spleen not palpable. EXTREMITIES: Reveal no cyanosis, clubbing or edema. SKIN: Turgor: Warm and dry. NEUROLOGIC: Higher functions are normal. No focal deficits are noted on neurologic examination. ASSESSMENT NOTES AND PLAN: The patient continues to have significant pain while on radiation to the right upper lobe to alleviate the pain despite the narcotics, which may have to be adjusted significa ntly. In the meantime, we are waiting for Dr. Eli to assess him for possible cervical block if f easible. In the meantime, I told the patient we are going to wait for the final report for the patho logist to come back so that we can initiate systemic chemotherapy along with a drug such as Keytruda. Routine post exam instructions have been given to the patient. Time spent with the patient greater than 45 minutes. Lizzie Leary MD cc: [id number] TT: 10/30/2016 00:01:14 Confirmation # [id number] Dictation # [id number] mn
[2016-10-30] MEDS: oxyCODONE 15 mg Immediate Release Tab PO PRN (01:52)
[2016-10-30] MEDS: Albuterol-Ipratrop 3 mg / 0.5 (3 ml) UD IH SCH ×4 (02:08→20:38)
--- NOTE | 2016-10-30 04:31 | PN ---
DATE: 10/29/2016 REFERRING PHYSICIAN: Dr. Fermin. SUBJECTIVE: He is sitting at the side of the bed. Night was unremarkable. Still having right upper chest, shoulder and upper back pain. Mild cough. No nausea, no vomiting, no diarrhea. No leg pain or leg swelling. OBJECTIVE: GENERAL: No acute distress. VITAL SIGNS: Temperature is 98, heart rate 81, respiratory rate is 20, blood pressure 109/77, pulse ox 94% on nasal cannula. HEENT: Moist mucous membranes. Crowded airway. NECK: Supple. No JVD. LUNGS: Have decreased breath sounds in the right lung. HEART: S1, S2. ABDOMEN: Soft, nontender. No organomegaly. EXTREMITIES: There is no edema. NEUROLOGIC: Awake, alert, follows simple command. MEDICATIONS: He is on Colace 100 mg twice a day, Decadron 2 mg q. 12 hours, Diflucan 100 mg daily, D ilaudid 3 mg IV q. 3 hours p.r.n., Dulcolax 5 mg 3 times a day, albuterol/Atrovent nebulizer q. 6 rin rs, fentanyl patch q. 72 hours, Duragesic patch q. 72 hours, Flexeril 10 mg twice a day, Lidod erm patch affected area, Lovenox 40 mg daily, Lyrica 50 mg 3 times a day, Maalox, MiraLax p.r.n. basi s, Mucinex DM twice a day, oxycodone immediate release 15 mg q. 4 hours p.r.n., Protonix 40 mg daily, Tylenol p.r.n., Zofran p.r.n. LABORATORY DATA: Shows hemoglobin 11.5, hematocrit 34.6, WBC 10.3, platelet count is 268. Sodium 13 2, potassium 4.0, chloride 95, bicarbonate 28, BUN 16, creatinine 0.6, glucose 107, calcium is 9.0, A ST 29, ALT 41, alk phos is 88, albumin is 3.6. IMPRESSION AND PLAN: Unresectable lung cancer with metastatic disease to bone involving the spine, c hronic obstructive lung disease. Pulmonary point of view, doing well. Continue bronchodilator. Emile p head elevated at 45-degrees. Gastric prophylaxis. Pain management. Radiation therapy. We will f krystinlow with you. Elisabet Pelaez MD cc: [phone] TT: 10/30/2016 04:30:44 Confirmation # [id number] Dictation # [id number] dn
[2016-10-30] MEDS: Pantoprazole 40 mg EC Tab PO SCH (05:34)
[2016-10-30] MEDS: Enoxaparin 40 mg Syringe SC SCH (05:34)
[2016-10-30] MEDS: HYDROmorphone 2 mg/ml ISec IVP PRN ×6 (05:35→23:45)
[2016-10-30] MEDS: Aluminum Hydroxide/Magnesium 30 ML, DiphenhydrAMINE 75 MG, Lidocaine 2% Viscous 30 ML PO SCH ×5 (08:00→21:48)
[2016-10-30] MEDS: Dexamethasone 4 mg/1 ml IVP SCH (11:00)
[2016-10-30] MEDS: POLYETHYLENE GLYCOL 3350 17 GM/Dose PACKET PO SCH ×3 (11:00→18:03)
[2016-10-30] MEDS: Lidocaine 5% Patch TD SCH (11:00)
[2016-10-30] MEDS: guaiFENesin-DM 600-30 mg ER Tab PO SCH ×2 (11:00→17:56)
[2016-10-30] MEDS: Bisacodyl 5mg EC Tab PO SCH ×3 (11:00→17:55)
--- NOTE | 2016-10-30 14:08 | CP.PCM.PN ---
Subjective - Date & Time of Evaluation Date of Evaluation: 10/30/16 Time of Evaluation: 11:35 - Subjective Subjective: Comfortable, still with pain in the right upper back area, no fevers. Objective - Vital Signs/Intake and Output Vital Signs (last 24 hours): Temp Pulse Resp BP Pulse Ox 98.2 F 100 H 16 118/85 99 10/30/16 10:00 10/30/16 10:00 10/30/16 10:00 10/30/16 10:00 10/30/16 10:00 Intake and Output: 10/30/16 10/30/16 06:59 18:59 Intake Total 420 Balance 420 - Medications Medications: Current Medications Acetaminophen (Tylenol 325mg Tab) 650 mg PO Q6H PRN; Protocol PRN Reason: Fever >100.4 F Albuterol/Ipratropium (Duoneb 3 Mg/0.5 Mg (3 Ml) Ud) 3 ml IH [id number] BRIA PRN Reason: Protocol Last Admin: 10/30/16 13:13 Dose: Not Given Bisacodyl (Dulcolax) 5 mg PO TID BRIA PRN Reason: Protocol Last Admin: 10/29/16 17:43 Dose: 5 mg Al Hydrox/Mg Hydrox/Simethicone 30 ml/Diphenhydramine HCl 75 mg/Lidocaine 30 ml 0 ml PO 0700,1200,1700,2200 BRIA PRN Reason: Protocol Last Admin: 10/29/16 22:05 Dose: 30 ml Dexamethasone (Decadron Inj) 2 mg IVP Q12 BRIA PRN Reason: Protocol Last Admin: 10/29/16 22:07 Dose: 2 mg Docusate Sodium (Colace) 100 mg PO BID BRIA PRN Reason: Protocol Last Admin: 10/29/16 17:43 Dose: 100 mg Enoxaparin Sodium (Lovenox) 40 mg SC 0600 BRIA PRN Reason: Protocol Last Admin: 10/30/16 05:34 Dose: 40 mg Fentanyl (Duragesic) 1 patch TD Q72H BRIA PRN Reason: Protocol Last Admin: 10/30/16 09:53 Dose: 1 patch Fentanyl (Duragesic) 1 patch TD Q72H BRIA PRN Reason: Protocol Last Admin: 10/30/16 09:53 Dose: 1 patch Fluconazole (Diflucan) 100 mg PO DAILY BRIA PRN Reason: Protocol Stop: 10/31/16 10:00 Last Admin: 10/29/16 11:51 Dose: 100 mg Guaifenesin/Dextromethorphan (Mucinex-Dm 600-30 Mg) 1 tab PO BID [facility] Last Admin: 10/29/16 17:44 Dose: 1 tab Hydromorphone HCl (Dilaudid) 3 mg IVP Q3H PRN; Protocol PRN Reason: Pain, moderate (4-7) Last Admin: 10/30/16 13:03 Dose: 3 mg Lidocaine (Lidoderm) 2 ea TD DAILY BRIA PRN Reason: Protocol Last Admin: 10/29/16 11:00 Dose: 2 ea Ondansetron HCl (Zofran Inj) 4 mg IVP Q6H PRN; Protocol PRN Reason: Nausea/Vomiting Last Admin: 10/26/16 09:42 Dose: 4 mg Oxycodone HCl (Oxycodone Immediate Release Tab) 15 mg PO Q4 PRN; Protocol PRN Reason: Pain, Mild (1-3) Last Admin: 10/30/16 01:52 Dose: 15 mg Pantoprazole Sodium (Protonix Ec Tab) 40 mg PO 0630 [facility] PRN Reason: Protocol Last Admin: 10/30/16 05:34 Dose: 40 mg Polyethylene Glycol (Miralax) 17 gm PO BID [facility] Last Admin: 10/29/16 17:44 Dose: 17 gm Pregabalin (Lyrica) 50 mg PO TID [facility] Last Admin: 10/29/16 17:48 Dose: 50 mg - Labs Labs: 10/29/16 06:30 10/29/16 06:30 - Constitutional Appears: Non-toxic, No Acute Distress - Head Exam Head Exam: NORMAL INSPECTION - ENT Exam ENT Exam: Mucous Membranes Moist - Neck Exam Neck Exam: absent: Meningismus - Respiratory Exam Respiratory Exam: Decreased Breath Sounds - Cardiovascular Exam Cardiovascular Exam: +S1, +S2 - GI/Abdominal Exam GI & Abdominal Exam: Soft. 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
--- NOTE | 2016-10-30 15:21 | PN ---
DATE: 10/29/2016 SUBJECTIVE: The patient clinically is stable. He complained of pain in his thoracic spine. He comp lained also of dry mouth. The patient currently on multiple medications. He did move his bowels thi s. He has trouble sleeping because of pain. The patient is also a pain management consult. Dr. Shon obrien did not see him yet, but he is stable at this time. PHYSICAL EXAMINATION: VITAL SIGNS: Temperature 98.4, heart rate 81, blood pressure 109/77, respirations 16, saturation ___ _ on room air. HEAD AND NECK: Normal. No JVD, no thyromegaly. CHEST: Clear, good air entry. CARDIAC: First sound, second sound normal. ABDOMEN: Soft, nontender. EXTREMITIES: No edema. NEUROLOGIC: He is normal except back pain, worse with touch and tenderness. LABORATORY DATA: On 10/29/2016: White count 10.3, hemoglobin 11.5, hematocrit 34.6, platelets 268. His chemistry shows sodium 132, potassium 4, chloride 95, bicarb 28, BUN 16, creatinine 0.6. Liver function test is normal. IMPRESSION AND PLAN: 1. Lung cancer with metastasis to the thoracic spine, stage IV. Continue radiation therapy. 2. The patient complained of dry mouth. Probably has some mycotic infections. He is feeling better with Mycostatin but still complained of dry mouth. We are going to discontinue cyclobenzaprine and will see how he does. 3. Chronic obstructive pulmonary disease. Continue inhaled bronchodilators, continue cough medicine s and continue current treatment. The patient also still getting Decadron for his metastasis and his underlying chronic obstructive pulmonary disease. 4. Chronic severe intractable back pain. Still waiting for Dr. Eli. Continue Duragesic patch 1 25. Continue oxycodone 15 every 4 hours p.r.n. in additions to Dilaudid p.r.n. At this time, continue current medicines. Follow up clinically. Gary Fermin MD cc: [phone] TT: 10/30/2016 15:20:08 Confirmation # [id number] Dictation # [id number] mn
--- NOTE | 2016-10-30 16:26 | PN ---
DATE: 10/30/2016 REFERRING PHYSICIAN: Dr. Fermin. SUBJECTIVE: He is in the room, sitting up in a chair, night was unremarkable, still having right taryn ulder, upper back and chest pain. Cough is better. No nausea, vomiting, diarrhea. No leg pain or l eg swelling. OBJECTIVE: GENERAL: No acute distress. VITAL SIGNS: Temperature is 98, heart rate is 100, respiratory rate is 16, blood pressure 118/85, pu lse ox 99% on 2-liter nasal cannula. HEENT: Moist mucous membranes. Small oral cavity. LUNGS: Has decreased breath sounds at the right lung. HEART: S1 and S2. ABDOMEN: Soft, nontender. No organomegaly. EXTREMITIES: There is no edema. NEUROLOGIC: Awake, alert, follows simple command. MEDICATIONS: He is on Colace 100 mg twice a day, Decadron 2 mg q. 12 hours, Diflucan mg daily, Dilaudid mg IV q. 3 hours p.r.n., Dulcolax 5 mg 3 times a day, DuoNeb q. 6 hours, Duragesic pa tch q. 72 hours, Lidoderm patch daily, Lovenox 40 mg subQ daily, Lyrica 50 mg 3 times a day, MiraLax 17 grams twice a day, Mucinex DM 1 tab twice a day, oxycodone immediate release 15 mg q. 4 hours p.r. n., Protonix 40 mg daily, Tylenol p.r.n., Zofran on a p.r.n. basis. LABORATORY DATA: Reviewed and noted. No new lab is available since yesterday. IMPRESSION AND PLAN: Unresectable lung cancer with metastatic disease to bones and spine, chronic ob structive lung disease. Pulmonary point of view, doing okay. Awaiting for Dr. Eli for possible to cut down his opiates. Pulmonary point of view, continue bronchodilator, decrease his Decadr on to 2 mg daily. Gastric prophylaxis. Fall precaution. Continue pain management. Thank you and w ill follow with you. Elisabet Pelaez MD cc: [phone] TT: 10/30/2016 16:26:00 Confirmation # [id number] Dictation # [id number] mn
--- NOTE | 2016-10-30 20:49 | PN ---
DATE: 10/30/2016 SUBJECTIVE: The patient is a 56-year-old male admitted via the Emergency Room with severe pain to hi s neck and right shoulder, with the patient known to suffer from nonsmall cell CA of the lung, stage IV, with consideration at one point for cord compression with radiation continuing as per r ecommendations. With this, the patient is now reporting his pain is significant with consultation an d treatment as per Dr. Eli recommended with Dr. Eli now reporting he will see the patient as an outpatient as per Dr. Fermin. The patient reports that he is eating, but the pain is still signif icant. OBJECTIVE PHYSICAL EXAMINATION: VITAL SIGNS: Temperature 98, pulse 94, respirations 14, blood pressure 120/84 and pulse ox 97%. HEENT: Unremarkable. NECK: Supple, with minimal tenderness to gentle palpation on the right side. HEART: Tachy rate, regular rhythm. LUNGS: Decreased breath sounds on the right. Occasional rhonchi. ABDOMEN: Soft and nontender. EXTREMITIES: No edema. SKIN: Warm, dry and clear. NEUROLOGIC: Awake and alert. LABORATORY DATA: The patient's labs were done yesterday and were within normal range and will be rep eated as per Dr. Fermin. ASSESSMENT FOR THIS PATIENT: Is that of intractable pain of cancer, stage IV poorly differentiated, nonsmall cell carcinoma of the lung with focal luminal formation with metastases to the vertebral bodies, spinal stenosis, constipa tion and history of tuberculosis treatment. PLAN FOR THIS PATIENT: Is to continue present medical regimen as per attending and consultants' yonis mmendations. With TB workup in progress as per Dr. Thurman, infectious disease, with his narcotic analgesics continuing along with IV Decadron, fentanyl patch, Lidoderm and Lyrica along with oxycodo ne p.o. With this, we will continue the present medical regimen with increase of narcotic analgesics as per Dr. Eli with consult ordered for with radiation to continue. Reagan Antoine MD Lizzie Leary MD cc: [phone] TT: 10/30/2016 20:47:59 Confirmation # [id number] Dictation # [id number] sn
[2016-10-31] MEDS: Albuterol-Ipratrop 3 mg / 0.5 (3 ml) UD IH SCH ×4 (01:18→21:11)
[2016-10-31] MEDS: HYDROmorphone 2 mg/ml ISec IVP PRN ×6 (03:57→21:26)
[2016-10-31] MEDS: Enoxaparin 40 mg Syringe SC SCH (05:56)
[2016-10-31] MEDS: Pantoprazole 40 mg EC Tab PO SCH (05:57)
[2016-10-31] MEDS: oxyCODONE 15 mg Immediate Release Tab PO PRN ×4 (06:20→21:08)
[2016-10-31] MEDS: Aluminum Hydroxide/Magnesium 30 ML, DiphenhydrAMINE 75 MG, Lidocaine 2% Viscous 30 ML PO SCH ×4 (07:02→23:58)
[2016-10-31] MEDS: Lidocaine 5% Patch TD SCH (10:07)
[2016-10-31] MEDS: Bisacodyl 5mg EC Tab PO SCH ×3 (10:08→17:06)
[2016-10-31] MEDS: POLYETHYLENE GLYCOL 3350 17 GM/Dose PACKET PO SCH ×2 (10:08→17:07)
[2016-10-31] MEDS: guaiFENesin-DM 600-30 mg ER Tab PO SCH ×2 (10:09→17:06)
--- NOTE | 2016-10-31 11:29 | PN ---
DATE: 10/30/2016 The patient has been in pain, seen by Dr. Eli's partner. He will get epidural injections once he leaves the TCU for operative room availability. The patient complained of pain. He has no other ne w complaints, no short of breath, no other complaints. PHYSICAL EXAMINATION: VITAL SIGNS: Temperature 98, heart rate 94, blood pressure 120/84, respirations 14, saturation 97%. HEAD AND NECK: Normal. No JVD, no thyromegaly. CHEST: Clear. CARDIAC: First and second sounds are normal. ABDOMEN: Soft, nontender. EXTREMITIES: No edema. SPINE: Very tender to touch in thoracic area. LABORATORY DATA: White count 10.3, hemoglobin 11.5, hematocrit 34.6, platelets 268. Chemistry: Sod ium 132, potassium 4, chloride 95, bicarb 28, BUN 16, creatinine 0.6. Liver function test is normal. The patient also had at TB QuantiFERON test which came back negative, but one of the value ca me back negative. IMPRESSION AND PLAN: 1. Severe intractable back pain. Continue pain medicine as prescribed, Duragesic patch and Dilaudid IV. Will give him an extra injection now for his pain and continue Lidoderm patch, continue Lyrica, continue oxycodone. 2. Chronic obstructive pulmonary disease. The patient's Decadron will continue, inhaled bronchodila tors. We will taper off steroids soon. 3. Lung cancer stage IV with mets to the spine. Continue current treatment and will follow up the p atient. The patient is still getting radiation therapy and getting physical therapy. Last day will be tomorrow hopefully, will see how he feels. May discharge him after evaluating him. Gary Fermin MD cc: [phone] TT: 10/31/2016 11:28:45 Confirmation # [id number] Dictation # [id number] dasha
--- NOTE | 2016-10-31 18:21 | CP.PCM.PN ---
Subjective - Date & Time of Evaluation Date of Evaluation: 10/31/16 Time of Evaluation: 10:55 - Subjective Subjective: Patient is afebrile, not in distress. Still with right shoulder pain. Objective - Vital Signs/Intake and Output Vital Signs (last 24 hours): Temp Pulse Resp BP Pulse Ox 98.6 F 83 14 134/84 95 10/31/16 16:47 10/31/16 16:47 10/31/16 16:47 10/31/16 16:47 10/31/16 16:47 Intake and Output: 10/31/16 10/31/16 06:59 18:59 Intake Total 340 Balance 340 - Medications Medications: Current Medications Acetaminophen (Tylenol 325mg Tab) 650 mg PO Q6H PRN; Protocol PRN Reason: Fever >100.4 F Albuterol/Ipratropium (Duoneb 3 Mg/0.5 Mg (3 Ml) Ud) 3 ml IH [id number] BRIA PRN Reason: Protocol Last Admin: 10/31/16 13:36 Dose: Not Given Bisacodyl (Dulcolax) 5 mg PO TID BRIA PRN Reason: Protocol Last Admin: 10/31/16 17:06 Dose: 5 mg Al Hydrox/Mg Hydrox/Simethicone 30 ml/Diphenhydramine HCl 75 mg/Lidocaine 30 ml 0 ml PO 0700,1200,1700,2200 BRIA PRN Reason: Protocol Last Admin: 10/31/16 17:07 Dose: 30 ml Dexamethasone (Decadron) 1.5 mg PO Q12 BRIA Last Admin: 10/31/16 10:16 Dose: 1.5 mg Docusate Sodium (Colace) 100 mg PO BID BRIA PRN Reason: Protocol Last Admin: 10/31/16 17:08 Dose: 100 mg Enoxaparin Sodium (Lovenox) 40 mg SC 0600 BRIA PRN Reason: Protocol Last Admin: 10/31/16 05:56 Dose: 40 mg Fentanyl (Duragesic) 1 patch TD Q72H BRIA PRN Reason: Protocol Last Admin: 10/30/16 09:53 Dose: 1 patch Fentanyl (Duragesic) 1 patch TD Q72H BRIA PRN Reason: Protocol Last Admin: 10/30/16 09:53 Dose: 1 patch Guaifenesin/Dextromethorphan (Mucinex-Dm 600-30 Mg) 1 tab PO BID [facility] Last Admin: 10/31/16 17:06 Dose: 1 tab Hydromorphone HCl (Dilaudid) 3 mg IVP Q3H PRN; Protocol PRN Reason: Pain, moderate (4-7) Last Admin: 10/31/16 17:08 Dose: 3 mg Lidocaine (Lidoderm) 2 ea TD DAILY BRIA PRN Reason: Protocol Last Admin: 10/31/16 10:07 Dose: 2 ea Ondansetron HCl (Zofran Inj) 4 mg IVP Q6H PRN; Protocol PRN Reason: Nausea/Vomiting Last Admin: 10/26/16 09:42 Dose: 4 mg Oxycodone HCl (Oxycodone Immediate Release Tab) 15 mg PO Q4 PRN; Protocol PRN Reason: Pain, Mild (1-3) Last Admin: 10/31/16 17:06 Dose: 15 mg Pantoprazole Sodium (Protonix Ec Tab) 40 mg PO 0630 [facility] PRN Reason: Protocol Last Admin: 10/31/16 05:57 Dose: 40 mg Polyethylene Glycol (Miralax) 17 gm PO BID [facility] Last Admin: 10/31/16 17:07 Dose: 17 gm Pregabalin (Lyrica) 50 mg PO TID [facility] Last Admin: 10/31/16 17:07 Dose: 50 mg - Labs Labs: 10/29/16 06:30 10/29/16 06:30 - Constitutional Appears: Non-toxic, No Acute Distress - Head Exam Head Exam: NORMAL INSPECTION - ENT Exam ENT Exam: Mucous Membranes Moist - Neck Exam Neck Exam: absent: Lymphadenopathy, Meningismus - Respiratory Exam Respiratory Exam: Decreased Breath Sounds - Cardiovascular Exam Cardiovascular Exam: +S1, +S2 - GI/Abdominal Exam GI & Abdominal Exam: Soft. absent: Tenderness Assessment and Plan - Assessment and Plan (Free Text) Plan: Assessment Questionable history of pulmonary TB in the past, with current Quantiferon TB test (September 2016) negative Rigt lung mass, which is poorly-differentiated non-small cell lung cancer on pathology S/P biopsy 10/16/2016 on radiotherapy COPD Plan Quantiferon TB test is negative; right lung mass is already verified by pathology as lung cancer and not TB Will continue to monitor clinically Overall prognosis is poor
[2016-10-31] MEDS ORDERED: HYDROmorphone 1 mg/ml ISec IVP PRN (22:37)
--- NOTE | 2016-10-31 23:29 | PN ---
DATE: 10/31/2016 LOCATION: On TCU. For Dr. Leary. SUBJECTIVE: The patient is a 56-year-old male seen sitting up in bed, participating with recondition ing. However, his pain continues to be significant with consideration for eventual discharge home on ce his radiation is complete. At present, the patient is on Dilaudid IV, Lidoderm patch, fentanyl pa tch and oxycodone p.r.n. tablets. He does not take the oxycodone at this point as he prefers the Dil audid for his severe pain. The patient suffers from stage IV lung cancer with consideration for comp ression of his cervical spinal cord with significant neck pain and shoulder pain on the right. Other cooper, he is tolerating his diet with this pain the main complaint. PHYSICAL EXAMINATION: VITAL SIGNS: Temperature 98.6, pulse 83, respirations 14, blood pressure 134/84, pulse ox 95%. HEENT: Unremarkable. NECK: Supple, with the patient tilting his head to the right due to discomfort. Minimal tenderness there. HEART: Tachy rate, regular rhythm. LUNGS: Decreased breath sounds in the right. Occasional rhonchi. ABDOMEN: Soft and nontender. EXTREMITIES: No edema. SKIN: Warm, dry. NEUROLOGIC: Awake and alert. LABORATORY DATA: The patient's labs were done 2 days prior and will be repeated tomorrow. ASSESSMENT: Intractable pain of cancer, stage IV poorly differentiated nonsmall cell cancer of the lung with foca l formation, mets to the vertebral body, spinal stenosis, constipation, history of tuberculosi s treatment. PLAN: To adjust his narcotic analgesics after conversation with Dr. Leary. We will increase his f entanyl patch from 125 to 150 mcg per hour. We will also continue his Lidoderm patch. We will decre ase his Dilaudid from 3 mg IV q. 3 to 1 mg IV q. 4 for severe pain. With this knot coming up on the screen, it still shows for moderate pain. This is now for severe breakthrough pain. The patient's o xycodone will be given 15 mg q. 4 hours scheduled, not p.r.n.; however, the patient may refuse in ant icipation of eventual discharge home with followup with Dr. Eli, pain consult as an outpatient fo r definitive pain relief as possible. We will check his labs in the morning and monitor clinically w ith radiation to continue as per . . Reagan Antoine MD cc: [phone] TT: 10/31/2016 23:29:31 Confirmation # [id number] Dictation # [id number] mn
--- NOTE | 2016-10-31 23:33 | PN ---
DATE: 10/31/2016 REFERRING PHYSICIAN: Dr. Fermin. SUBJECTIVE: The patient is lying in the bed, sleepy, arousable, feels a little better, had an extra dose of opiates. Still has left shoulder and back pain. Mild cough. No nausea, no vomiting, no yossi rrhea. No leg pain or leg swelling. OBJECTIVE: GENERAL: No acute distress. VITAL SIGNS: Temperature is 98, heart rate 83, respiratory rate is 16, blood pressure 134/84, pulse ox 95% on nasal cannula. HEENT: Moist mucous membrane. No ulcer or oral thrush noted. NECK: Supple. No JVD. LUNGS: Has fair airflow with a few rhonchi. HEART: S1, S2. ABDOMEN: Soft, nontender. No organomegaly. EXTREMITIES: There is no edema. NEUROLOGIC: Sleepy, arousable, follows simple commands. MEDICATIONS: He is on Colace 100 mg twice daily, Decadron 1.5 mg q. 12 hours, Dilaudid 3 mg q. 3 rin rs p.r.n., Dulcolax 5 mg q. 8 hours p.r.n., DuoNeb q. 6 hours, Duragesic patch daily, Lidoderm patch daily, Lovenox 40 mg subQ daily, Lyrica 50 mg 3 times a day, MiraLax 17 grams twice a day, Mucinex DM 600/30 one tab twice a day, oxycodone immediate release q. 4 hours p.r.n., Protonix 40 mg daily, Tyl enol p.r.n., Zofran on a p.r.n. basis. IMPRESSION AND PLAN: Unresectable lung cancer with metastatic disease to bone and spine, chronic obs tructive lung disease. Intractable pain, seen by pain management. Continue bronchodilator. Keep he ad elevated at 45 degree. Also followed by infectious diseases. We will follow with you. Elisabet Pelaez MD cc: [phone] TT: 10/31/2016 23:32:03 Confirmation # [id number] Dictation # [id number] an
[2016-11-01] MEDS: oxyCODONE 15 mg Immediate Release Tab PO SCH ×3 (00:51→08:35)
[2016-11-01] MEDS: HYDROmorphone 1 mg/ml ISec IVP PRN ×3 (00:54→08:34)
[2016-11-01] MEDS: Pantoprazole 40 mg EC Tab PO SCH (05:50)
[2016-11-01] MEDS: Enoxaparin 40 mg Syringe SC SCH (05:50)
[2016-11-01 07:27] LABS: ADD MANUAL DIFF? NO
[2016-11-01 07:41] LABS: BASO # 0.02 K/mm3 (0.0-2.0); BASO % 0.2 % (0.0-3.0); EOS # 0.1 (0.0-0.7); EOS % 0.6 % (1.5-5.0); GRAN # 6.89 (1.4-6.5); GRAN % 81.7 % (50.0-68.0); HEMATOCRIT 35.8 % (42.0-52.0); LYMPH # 0.9 (1.2-3.4); LYMPH % 11.1 % (22.0-35.0); MEAN CELL VOLUME 91.8 fL (80.0-105.0); MEAN CORPUSCULAR HEMOGLOBIN 30.5 pg (25.0-35.0); MEAN CORPUSCULAR HGB CONC 33.2 g/dl (31.0-37.0); MEAN PLATELET VOLUME 9.5 fl (7.0-11.0); MONO # 0.5 (0.1-0.6); MONO % 6.4 % (1.0-6.0); PLATELET COUNT 276 10^3/uL (120.0-450.0); WHITE BLOOD COUNT 8.4 10^3/ul (4.5-11.0)
[2016-11-01 07:46] LABS: ALB/GLOB RATIO 1.1 (1.1-1.8); ALKALINE PHOSPHATASE 92 U/L (38-133); ALT/SGPT 42 U/L (7-56); AST/SGOT 29 U/L (15-59); BILIRUBIN,TOTAL 0.6 mg/dL (0.2-1.3); BLOOD UREA NITROGEN 20 mg/dL (7-21); CALCIUM 8.9 mg/dL (8.4-10.5); CARBON DIOXIDE 29 mmol/L (21-33); CHLORIDE 94 mmol/L (95-110); GFR AFRICAN-AMERICAN > 60; GLUCOSE,RANDOM 112 mg/dL (70-110); POTASSIUM 4.4 mmol/L (3.6-5.0); SODIUM 129 mmol/L (132-148); TOTAL PROTEIN 6.9 g/dL (5.8-8.3)
[2016-11-01] MEDS: Albuterol-Ipratrop 3 mg / 0.5 (3 ml) UD IH SCH (07:51)
[2016-11-01] MEDS: Aluminum Hydroxide/Magnesium 30 ML, DiphenhydrAMINE 75 MG, Lidocaine 2% Viscous 30 ML PO SCH ×2 (07:55→12:00)
[2016-11-01] MEDS ORDERED: oxyCODONE 15 mg Immediate Release Tab PO STA (10:47)
[2016-11-01] MEDS ORDERED: oxyCODONE 30 mg Immediate Release Tab PO PRN (10:49)
[2016-11-01] MEDS: Lidocaine 5% Patch TD SCH (10:55)
[2016-11-01] MEDS: POLYETHYLENE GLYCOL 3350 17 GM/Dose PACKET PO SCH (10:55)
[2016-11-01] MEDS: Bisacodyl 5mg EC Tab PO SCH (10:56)
[2016-11-01] MEDS: guaiFENesin-DM 600-30 mg ER Tab PO SCH (10:56)
[2016-11-01 11:14] VITALS: BP 116/78; PULSE 93; RESP 18; TEMP 98.7; O2SAT 96
--- NOTE | 2016-11-01 11:17 | PN ---
DATE: 10/31/2016 REFERRING PHYSICIAN: Dr. Fermin. SUBJECTIVE: The patient is lying in the bed. Still has some shoulder/right upper back pain, mild co ugh. No nausea, no vomiting, no diarrhea. No leg pain or leg swelling. OBJECTIVE: GENERAL: No acute distress. VITAL SIGNS: Temp is 98, heart rate is 83, respiratory rate is 16, blood pressure 134/84, pulse ox 9 5% on 3 liters nasal cannula. HEENT: Moist mucous membrane. No ulcer or oral thrush noted. NECK: Supple, no JVD. BACK: Right shoulder/upper back has tenderness. HEART: S1, S2. LUNGS: Fair airflow. ABDOMEN: Soft, nontender. No organomegaly. EXTREMITIES: There is no edema. NEUROLOGIC: Awake, alert, follows simple commands. MEDICATIONS: He is on Colace 100 mg twice a day, Decadron 1.5 mg twice a day, Dilaudid 1 mg IV q. 4 hours p.r.n., Dulcolax p.r.n., DuoNeb q. 6 hours, Duragesic patch daily, Lidoderm patch daily, Loveno x 40 mg daily, Lyrica 50 mg 3 times a day, MiraLax 17 grams twice a day, Mucinex DM 1 tab twice a day , oxycodone immediate release 15 mg q. 4 hours p.r.n., Protonix 40 mg daily, Tylenol p.r.n., Zofran o n a p.r.n. basis. LABORATORY DATA: Shows hemoglobin 11.9, hematocrit 35.8, WBC 8.4, platelet is 276. Sodium 129, pota ssium 4.4, chloride 94, bicarbonate 29, BUN 20, creatinine 0.6, glucose 112, calcium 8.9, AST 29, ALT 42, alk phos is 92, albumin is 3.7. IMPRESSION AND PLAN: Unresectable lung cancer, metastatic disease to the bone and spine; chronic obs tructive lung disease; intractable pain, seen by pain management. Pulmonary point of view, he is doi ng okay. He has some cough. Continue bronchodilator, gastric prophylaxis, stool softener, pain mingo gement. Discharge planning in progress. The patient will be seeing Dr. Eli as an outpatient for pain management and also seeing oncology for further decision about chemotherapy. Thank you, and will follow with you. Elisabet Pelaez MD cc: [phone] TT: 11/01/2016 11:16:02 Confirmation # [id number] Dictation # [id number] mn
--- NOTE | 2016-11-01 12:32 | DS ---
HISTORY: A 56-year-old male admitted with lung cancer with mets to the thoracic spine. The patient has been getting radiation therapy on daily basis, Decadron and pain management. The patient seems s table. He does feel weak. He is still in a lot of pain despite of being treating with pain medicine s. The patient lives by himself. He is , and socially needs some assistance or some place to live with. His sister will do that; however, we will discuss with the sister, she is willing to a ccept him; however, he going to trip and she may need some homecare and assistance with that. Also, patient is still in need more physical therapy. However, he wants to go home. I did inform him that he should go to some sort of acute rehab for more physical therapy and more inpatient rehab. Will d iscuss further with the family. The patient currently has no chest pain, no short of breath, no naus ea, no vomiting. PHYSICAL EXAMINATION: VITAL SIGNS: Temperature 98.7, heart rate 93, blood pressure 116/78, respirations 18, saturation 96% . HEAD AND NECK: Normal. No JVD. No thyromegaly. CHEST: Clear, good air entry. CARDIAC: First and second sounds are normal. ABDOMEN: Soft, nontender. EXTREMITIES: No edema. NEUROLOGIC: The patient moves is very tender in his back. He feels weak and general weakness. LABORATORY DATA: White count 8.4, hemoglobin 11.9, hematocrit 35.8, platelets 276. His sodium 129, potassium 4.4, chloride 94, bicarbonate 29, BUN 20, creatinine 0.6, blood pressure . Liver func tion test is normal. DISCHARGE DIAGNOSES: 1. 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 2. Intractable back pain. The patient seen by a partner of Dr. Eli, he may need more interventi onal pain management assistance with him. The patient wants to try the medicine first. He still com plains of significant pain, pain does not really completely go and just dropped from 10/10-8/10. We will increase his oxycodone to 30 mg q. 6 hours and we will see how he does with that. Duragesic pat ch of 125 mcg. 3. Chronic constipation, opioid induced. Continue her on Relistor and Dulcolax, MiraLax and will fo llow up on that. 4. Chronic obstructive pulmonary disease. Continue inhalers. Follow up in the office within a week . Patient advised for more physical therapy and pain management. Will continue follow up with the o ther consultants and oncologist. Gary Fermin MD cc: [phone] TT: 11/01/2016 12:31:29 jn
--- NOTE | 2016-11-02 07:22 | PN ---
DATE: 11/01/2016 The patient is in room 327, bed 2. He is going to be discharged today. This is a 56-year-old male with documented carcinoma of the right upper lobe of the lung which is poo rly differentiated, spreading with contiguous extension to involve the spine without impinging on the spinal cord based on the MRI and neurosurgical consultation. The patient was started on primary rad iation therapy while we are awaiting for further detailed analysis of the pathology. The patient has been in considerable amount of pain. He has been on Duragesic patches which have been gradually inc reased to 125 mcg q. 72 hours. On top of that, he was on oxycodone 15 mg, has been increased to 30 q . 6 hours. He is on MiraLax and Relistor for constipation related to narcotics, may need to be on ei ther Amitiza or one of the other drugs for opiate constipation such as Movantik. The patient otherw ise still tells that the pain scale of 0-10 is still around 7. Previously, it was around 9. The [facility] ient has been seen by the pain specialist, Dr. Gary lEi, and is going to be set up as an outpat ient for possibly a block or trigger point injection to alleviate the pain which is in the posterior scapular area radiating to the right arm and to the right shoulder. We are still waiting for testing of the PD-L1 and EGFR testing before initiating any systemic therapy directed towards his cancer at this time. The patient denies any significant chest pain, shortness of breath, nausea, or vomiting. Except for the coughing from a pulmonary standpoint of view, he appears to be holding his own. No e vidence of hemoptysis. No fevers or chills. PHYSICAL EXAMINATION: VITAL SIGNS: T-max is 98.4, pulse of 93, blood pressure 116/70, respirations 18, O2 sat is 96%. HEENT: Head is normocephalic, atraumatic. Conjunctivae pale. Sclerae are anicteric. Pupils are eq ually reactive to light and accommodation. NECK: Examination of the area in question which is the right neck, right scapula, posterior aspect o f the upper thoracic spine extending into the right axilla in the triceps distribution of his right a rm, the patient still continues to be in pain in those areas of nerve distribution secondary to tumor involvement. Hopefully, with the incorporation of the chemotherapy regimen, we should see some furt her improvement in the pain along with local blocks. LUNGS: Clear to percussion and auscultation. HEART: Reveals S1 and S2 to be normal. ABDOMEN: Soft, nontender. EXTREMITIES: Reveal no cyanosis, clubbing or edema. NEUROLOGIC: The patient still has significant tenderness in his back. He feels weak overall. LABORATORY DATA: Reveals a white count of 8.4, hemoglobin 11.9, hematocrit 35, platelet count of 278 ,000. Electrolytes are within normal limits. Liver functions are normal. ASSESSMENT NOTES AND PLAN: The patient has locally advanced stage IV carcinoma of the lung, nonsmall cell. Further delineation for testing is still pending. Intractable back pain secondary to tumor i nvolvement encroaching on the spine and into the brachial plexus distribution of nerves for which he is currently on these medications. Chronic constipation for which he is on medications including Rel istor, Dulcolax and maybe switched over to overall oral medicines such as Amitiza or Movantik. Chron ic obstructive pulmonary disease for which he is on inhalers. The patient will follow up with us as an outpatient after he sees Dr. Fermin in his office. The patient has some social issues as he lives alone, so arrangements will have to be made for him to have some assistance at home as far as the la dications and management are concerned. The patient needs to be assessed for treatment with systemic therapy. I will try to make sure, if he needs to start treatments, we can initiate the treatment in a timely fashion. Routine post exam instructions have been given to the patient. Lizzie Leary MD cc: [phone] TT: 11/02/2016 07:20:57 Confirmation # [id number] Dictation # [id number] tn
== END 2016-11-01 15:37 | disposition home or self-care (01) | DRG 945 ==
LOC: TRCU 14:47
PROVIDERS: ADMIT Internal Medicine; ATTEND Internal Medicine
PROC: F07Z9ZZ Gait Training/Functional Ambulation Treatment (ICD-10-PCS; principal; 2016-10-20)
PROC: F08Z4ZZ Home Management Treatment (ICD-10-PCS; 2016-10-21)
PROC: DW021ZZ Beam Radiation of Chest using Photons 1 - 10 MeV (ICD-10-PCS; 2016-10-21)
DX: R53.1 Weakness (principal); C34.11 Malignant neoplasm of upper lobe, right bronchus or lung; C79.51 Secondary malignant neoplasm of bone; G95.29 Other cord compression; J44.9 Chronic obstructive pulmonary disease, unspecified; K59.03 Drug induced constipation; T40.2X5A Adverse effect of other opioids, initial encounter; M48.00 Spinal stenosis, site unspecified; G89.3 Neoplasm related pain (acute) (chronic); G54.0 Brachial plexus disorders; E27.9 Disorder of adrenal gland, unspecified; R68.2 Dry mouth, unspecified; Z86.11 Personal history of tuberculosis; Z87.891 Personal history of nicotine dependence; Z88.0 Allergy status to penicillin

== ENCOUNTER 2016-11-03 15:01 | Inpatient (IN) | payer MEDICARE, MEDICAID, OTHER ==
[2016-11-03 15:04] VITALS: BMI 18.3
[2016-11-03] MEDS ORDERED: HYDROmorphone 1 mg/ml ISec IVP STA (15:27)
[2016-11-03] MEDS ORDERED: HYDROmorphone 2 mg/ml ISec IVP STA ×2 (15:31→17:03)
[2016-11-03 15:55] LABS: ADD MANUAL DIFF? NO
--- NOTE | 2016-11-03 16:01 | ED PDOC ---
Arrival/HPI - General Historian: Patient <Sean Matthews - Last Filed: 11/03/16 17:12> - History of Present Illness Symptom Onset: Sudden Symptom Course: Unchanged Activities at Onset: Rest Context: Home <Brenda Ruano - Last Filed: 11/03/16 17:18> - General Chief Complaint: Back Pain Time Seen by Provider: 11/03/16 15:02 - History of Present Illness Narrative History of Present Illness (Text): 11/03/16 15:30 This is a 56 yo M with newly diagnosed locally invasive lung CA that presents to the ED with significant right shoulder pain. Pt was discharged from [facility] [place] [facility] on 11/01/16 but states that the pain medication regimen he was on at home was not adequate and the pain is unbearable. He spoke with both his PMD (Jeny) and Oncologist (Sapphire) and was instructed to come into the ED to be admitted to hospital for pain management. He describes the pain as crushing at times and it hurts for him to take a deep breath. Also states that he has associated right arm/hand numbness and that it feels colder compared to the left. Denies any fevers, chills, nausea or vomiting. States he cannot sleep at night due to the pain. PMD: Jeny Onc: Sapphire (Sean Matthews) Past Medical History - Provider Review Nursing Documentation Reviewed: Yes - Cardiac Hx Cardiac Disorders: No - Pulmonary Hx Respiratory Disorders: Yes Hx Lung Cancer: Yes (newly diagnosed) - Neurological Hx Neurological Disorder: No Hx Alzheimer's Disease: No - HEENT Hx HEENT Disorder: No - Renal Hx Renal Disorder: No - Endocrine/Metabolic Hx Endocrine Disorders: No - Hematological/Oncological Hx Blood Disorders: No - Integumentary Hx Dermatological Disorder: No - Musculoskeletal/Rheumatological Hx Falls: No - Gastrointestinal Hx Gastrointestinal Disorders: No - Genitourinary/Gynecological Hx Reproductive Disorders: No - Psychiatric Hx Psychophysiologic Disorder: No Hx Substance Use: No - Surgical History Hx Musculoskeletal Surgery: Yes (plate placed in back) Other/Comment: sx to right shoulder and neck - Anesthesia Hx Anesthesia Reactions: No Hx Malignant Hyperthermia: No <ByronSean - Last Filed: 11/03/16 17:12> Family/Social History - Physician Review Nursing Documentation Reviewed: Yes Family/Social History: No Known Family HX Smoking Status: Heavy Smoker > 10 Cigarettes Daily Hx Alcohol Use: No Hx Substance Use: No <Sean Matthews - Last Filed: 11/03/16 17:12> Allergies/Home Meds <Sean Matthews - Last Filed: 11/03/16 17:12> <Brenda Ruano - Last Filed: 11/03/16 17:18> Allergies/Adverse Reactions: Allergies Penicillins Allergy (Verified 11/03/16 15:31) ANAPHYLAXIS Home Medications: Home Meds Medication Instructions Recorded Confirmed oxyCODONE [oxyCODONE Immediate 30 mg PO Q6 11/03/16 11/03/16 Release Tab] tiZANidine [Zanaflex] 4 mg PO Q6 11/03/16 11/03/16 Review of Systems - Review of Systems Constitutional: Fatigue. absent: Fevers Eyes: Normal. absent: Vision Changes, Eye Pain ENT: Normal Respiratory: Normal. absent: SOB, Cough Cardiovascular: Normal. absent: Chest Pain, Palpitations Gastrointestinal: Normal. absent: Abdominal Pain, Nausea, Vomiting, Food Intolerance Genitourinary Male: Normal. absent: Dysuria Musculoskeletal: Arthralgias, Back Pain, Neck Pain Skin: Normal. absent: Rash, Pruritis Neurological: Normal. absent: Headache, Dizziness Endocrine: Normal Hemo/Lymphatic: Normal Psychiatric: Normal <Sean Matthews - Last Filed: 11/03/16 17:12> - Physician Review All systems were reviewed & negative as marked: Yes <Brenda Ruano - Last Filed: 11/03/16 17:18> Physical Exam Temperature: Afebrile Blood Pressure: Normal Pulse: Tachycardic Respiratory Rate: Normal Appearance: Positive for: Cachectic Pain Distress: Severe Mental Status: Positive for: Alert and Oriented X 3 - Systems Exam Head: Present: Atraumatic, Normocephalic Pupils: Present: PERRL Mouth: Present: Moist Mucous Membranes Respiratory/Chest: Present: Good Air Exchange. No: Respiratory Distress, Accessory Muscle Use Cardiovascular: Present: Normal S1, S2, Tachycardic Abdomen: Present: Normal Bowel Sounds. 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) Lower Extremity: Present: NORMAL PULSES, Neurovascularly Intact Neurological: Present: Speech Normal, Motor Func Grossly Intact Skin: Present: Warm, Dry Psychiatric: Present: Alert, Oriented x 3 <Sean Matthews - Last Filed: 11/03/16 17:12> Vital Signs Reviewed: Yes <Brenda Ruano - Last Filed: 11/03/16 17:18> Vital Signs Temp Pulse Resp BP Pulse Ox 11/03/16 15:04 98.2 F 11/03/16 15:03 99 H 17 130/82 100 Medical Decision Making <Sean Matthews - Last Filed: 11/03/16 17:12> - Lab Interpretations I have reviewed the lab results: Yes - EKG Interpretation Interpreted by ED Physician: Yes Type: 12 lead EKG <Brenda Ruano - Last Filed: 11/03/16 17:18> ED Course and Treatment: 11/03/16 16:09 This is a 56 yo M with newly diagnosed, locally invasive, stage IV lung cancer with intractable right shoulder pain. Plan: Labs CXR, EKG Dilaudid Reassess and dispo 11/03/16 16:31 EKG - sinus tachy, no st elevations, normal axis, normal waves 11/03/16 17:[address] Fermin, will admit pt with intractable pain to med/surg. Dr Leary put on consult. Discussed with pt and family and are agreeable to admission. (Sean Matthews) Patient Seen With Resident: In agreement with resident note which contains more details about the patient. Patient was seen and evaluated with resident. Came up with plan and treatment together. 11/03/16 17:17 Patient already on oxycodone at home. Given iv dilaudid in the emergency department and continues to be in pain. Will give toradol and additional dilaudid and will observe further on Dr. Fermin's service, as discussed with him. (Brenda Ruano) - Lab Interpretations Lab Results: 11/03/16 15:45 11/03/16 15:45 Lab Results 11/03/16 15:45: Sodium 132, Potassium 4.1, Chloride 97, Carbon Dioxide 25, Anion Gap 14, BUN 23 H, Creatinine 0.6, Est GFR ( Amer) > 60, Est GFR ( Non-Af Amer) > 60, Random Glucose 117 H, Calcium 9.3, Total Bilirubin 0.7, AST 33, ALT 37, Alkaline Phosphatase 100, Total Protein 7.5, Albumin 3.8, Globulin 3.8, Albumin/Globulin Ratio 1.0 L 11/03/16 15:45: PT 11.3, INR 1.05, APTT 37.3 H 11/03/16 15:45: WBC 5.8 D, RBC 4.06, Hgb 12.7 L, Hct 36.7 L, MCV 90.4, MCH 31.3 , MCHC 34.6, RDW 13.8, Plt Count 272, MPV 9.3, Gran % 75.2 H, Lymph % (Auto) 17.8 L, Stokes % (Auto) 6.0, Eos % (Auto) 0.5 L, Baso % (Auto) 0.5, Gran # 4.36, Lymph # 1.0 L, Stokes # 0.4, Eos # 0.0, Baso # 0.03 - RAD Interpretation Radiology Orders: 11/03/16 15:27 CHEST PORTABLE [RAD] Stat - Medication Orders Current Medication Orders: Discontinued Medications Erythromycin (Erythromycin) 1 applic OS ONCE STA Stop: 11/03/16 16:36 Last Admin: 11/03/16 17:13 Dose: 1 applic Hydromorphone HCl (Dilaudid) 2 mg IVP STAT STA Stop: 11/03/16 15:32 Last Admin: 11/03/16 15:51 Dose: 2 mg Hydromorphone HCl (Dilaudid) 2 mg IVP STAT STA Stop: 11/03/16 17:04 Last Admin: 11/03/16 17:13 Dose: 2 mg Ketorolac Tromethamine (Toradol) 30 mg IVP STAT STA Stop: 11/03/16 17:04 Last Admin: 11/03/16 17:12 Dose: 30 mg - PA / STUDY MANAGER / Resident Statement / has reviewed & agrees with the documentation as recorded. / has examined the patient and agrees with the treatment plan. <Brenda Ruano - Last Filed: 11/03/16 17:18> Disposition/Present on Arrival - Present on Arrival Any Indicators Present on Arrival: No History of DVT/PE: No History of Uncontrolled Diabetes: No Urinary Catheter: No History of Decub. Ulcer: No History Surgical Site Infection Following: None - Disposition Have Diagnosis and Disposition been Completed?: Yes Disposition Time: 17:14 <Sean Matthews - Last Filed: 11/03/16 17:12> <Brenda Ruano - Last Filed: 11/03/16 17:18> - Disposition Diagnosis: Intractable pain, Lung cancer Disposition: HOSPITALIZED Patient Problems: Current Active Problems Problem Status Onset Intractable pain Acute Lung cancer Acute Condition: STABLE Referrals: Gary Fermin MD [Primary Care Provider] - Follow up with primary
[2016-11-03 16:08] LABS: BASO # 0.03 K/mm3 (0.0-2.0); BASO % 0.5 % (0.0-3.0); EOS % 0.5 % (1.5-5.0); GRAN # 4.36 (1.4-6.5); GRAN % 75.2 % (50.0-68.0); HEMATOCRIT 36.7 % (42.0-52.0); LYMPH % 17.8 % (22.0-35.0); MEAN CELL VOLUME 90.4 fL (80.0-105.0); MEAN CORPUSCULAR HEMOGLOBIN 31.3 pg (25.0-35.0); MEAN CORPUSCULAR HGB CONC 34.6 g/dl (31.0-37.0); MEAN PLATELET VOLUME 9.3 fl (7.0-11.0); MONO # 0.4 (0.1-0.6); PLATELET COUNT 272 10^3/uL (120.0-450.0); RED CELL DISTRIBUTION WIDTH 13.8 % (11.5-14.5); WHITE BLOOD COUNT 5.8 10^3/ul (4.5-11.0)
[2016-11-03 16:14] LABS: INR 1.05 (0.93-1.08); PARTIAL THROMBOPLASTIN TIME 37.3 Seconds (23.7-30.8)
[2016-11-03 16:16] LABS: ALKALINE PHOSPHATASE 100 U/L (38-133); ALT/SGPT 37 U/L (7-56); AST/SGOT 33 U/L (15-59); BILIRUBIN,TOTAL 0.7 mg/dL (0.2-1.3); BLOOD UREA NITROGEN 23 mg/dL (7-21); CALCIUM 9.3 mg/dL (8.4-10.5); CARBON DIOXIDE 25 mmol/L (21-33); CHLORIDE 97 mmol/L (95-110); GFR AFRICAN-AMERICAN > 60; GLUCOSE,RANDOM 117 mg/dL (70-110); POTASSIUM 4.1 mmol/L (3.6-5.0); SODIUM 132 mmol/L (132-148); TOTAL PROTEIN 7.5 g/dL (5.8-8.3)
--- NOTE | 2016-11-03 16:17 | RAD ---
HISTORY: nausea and vomiting COMPARISON: No prior. FINDINGS: LUNGS: No active pulmonary disease. PLEURA: No significant pleural effusion identified, no pneumothorax apparent. CARDIOVASCULAR: Normal. OSSEOUS STRUCTURES: No significant abnormalities. VISUALIZED UPPER ABDOMEN: Normal. OTHER FINDINGS: None. IMPRESSION: No active disease.
[2016-11-03] MEDS ORDERED: Erythromycin 0.5% Ophth Oint 1 APPLIC/3.5 G OS STA (16:35)
[2016-11-03] MEDS ORDERED: oxyCODONE 15 mg Immediate Release Tab PO PRN (20:15)
[2016-11-03] MEDS ORDERED: Bisacodyl 5mg EC Tab PO ONE (20:15)
[2016-11-03] MEDS: HYDROmorphone 2 mg/ml ISec IVP PRN ×2 (21:00→23:58)
--- NOTE | 2016-11-03 22:59 | CP.PCM.CON ---
History of Present Illness - History of Present Illness History of Present Illness: 56M w/ PMHx of COPD, non-small cell lung CA (diagnosed in September 2016), presents to the ED w/ complaints of right shoulder pain. Patient reports his home pain medication is not alleviating his symptoms. He states he has neck pain, with right shoulder pain that radiates down towards the mid-axillary region. Patient reports paresthesia along his right hand. Patient mentioned he spokes with both Dr. Leary and Dr. Fermin who recommended patient report to hospital for pain management. General surgery was consulted for portacath insertion. At time of examination patient reported pain along his ribs and some shortness of breath which he reports to be chronic. Patient denied fever/chills, headaches, nausea/ vomiting, abdominal pain. PMHx: as stated above Allergies: Penicillin Soc Hx: Former heavy smoker Review of Systems - Review of Systems Review of Systems: 12 pt ROS carried out, unremarkable; except as stated in HPI Past Patient History - Past Social History Smoking Status: Former Smoker - CARDIAC Hx Cardiac Disorders: No - PULMONARY Hx Respiratory Disorders: Yes - NEUROLOGICAL Hx Neurological Disorder: No Hx Alzheimer's Disease: No - HEENT Hx HEENT Problems: No - RENAL Hx Chronic Kidney Disease: No - ENDOCRINE/METABOLIC Hx Endocrine Disorders: No - HEMATOLOGICAL/ONCOLOGICAL Hx Blood Disorders: No Hx Cancer: Yes (lung) - INTEGUMENTARY Hx Dermatological Problems: No - MUSCULOSKELETAL/RHEUMATOLOGICAL Hx Falls: No - GASTROINTESTINAL Hx Gastrointestinal Disorders: No - GENITOURINARY/GYNECOLOGICAL Hx Reproductive Disorders: No - PSYCHIATRIC Hx Psychophysiologic Disorder: No Hx Substance Use: No - SURGICAL HISTORY Hx Musculoskeletal Surgery: Yes (plate placed in back) Other/Comment: sx to right shoulder and neck - ANESTHESIA Hx Anesthesia Reactions: No Hx Malignant Hyperthermia: No Meds Allergies/Adverse Reactions: Allergies Allergy/AdvReac Type Severity Reaction Status Date / Time Penicillins Allergy ANAPHYLAXIS Verified 11/03/16 15:31 - Medications Medications: Current Medications Arformoterol Tartrate (Brovana) 15 mcg IH [id number] BRIA Budesonide (Pulmicort Respules) 0.5 mg IH [id number] BRIA Enoxaparin Sodium (Lovenox) 40 mg SC DAILY BRIA PRN Reason: Protocol Fentanyl (Duragesic) 1 patch TD Q72H BRIA Fentanyl (Duragesic) 1 patch TD Q72H BRIA Hydromorphone HCl (Dilaudid) 2 mg IVP Q3H PRN PRN Reason: Pain, severe (8-10) Last Admin: 11/03/16 21:00 Dose: 2 mg Oxycodone HCl (Oxycodone Immediate Release Tab) 15 mg PO Q4H PRN PRN Reason: Pain, moderate (4-7) Pantoprazole Sodium (Protonix Ec Tab) 40 mg PO ACB BRIA Pregabalin (Lyrica) 75 mg PO TID BRIA Physical Exam - Constitutional Appears: No Acute Distress, Cachectic, Chronically Ill - Head Exam Head Exam: NORMOCEPHALIC - Eye Exam Eye Exam: Normal appearance - ENT Exam ENT Exam: Mucous Membranes Moist - Respiratory Exam Respiratory Exam: NORMAL BREATHING PATTERN - Cardiovascular Exam Cardiovascular Exam: JVD, +S1, +S2 - GI/Abdominal Exam GI & Abdominal Exam: Soft. absent: Tenderness - Neurological Exam Neurological exam: Alert, Oriented x3 - Psychiatric Exam Psychiatric exam: Normal Mood - Skin Skin Exam: Dry, Intact, Warm Additional comments: erythema along right base of neck Results - Vital Signs Recent Vital Signs: Last Vital Signs Temp 98.2 F 11/03/16 15:04 Pulse 80 11/03/16 19:32 Resp 18 11/03/16 19:32 BP 110/69 11/03/16 19:32 Pulse Ox 94 L 11/03/16 17:03 - Labs Result Diagrams: 11/03/16 15:45 11/03/16 15:45 - Imaging and Cardiology Chest x-ray Status: Image reviewed by me, Report reviewed by me Assessment & Plan - Assessment and Plan (Free Text) Assessment: 56M w/ non-small cell lung CA Plan: -Will plan for portacath placement -Keep patient NPO past midnight -Will hold anti-coagulation -Patient expresses he will like to speak with Dr. Jeny rodriguez prior to signing surgical consent -Analgesia per primary and oncology -Continue medical management as per primary -Will follow -Further recs per Dr. Chao
[2016-11-03] MEDS: Sodium Chloride 0.9% 1,000 ML IV SCH (23:39)
[2016-11-04] MEDS: HYDROmorphone 2 mg/ml ISec IVP PRN ×6 (03:14→21:55)
--- NOTE | 2016-11-04 07:22 | CP.PCM.PN ---
Subjective - Date & Time of Evaluation Date of Evaluation: 11/04/16 Time of Evaluation: 06:50 - Subjective Subjective: General Surgery Pt S&E, NAEO. Continues to have R shoulder and neck pain. No other c/o at this time. Pt wishes to talk with Dr Fermin prior to consenting for any procedures Objective - Vital Signs/Intake and Output Vital Signs (last 24 hours): Temp Pulse Resp BP Pulse Ox 98.2 F 80 18 110/69 94 L 11/03/16 15:04 11/03/16 19:32 11/03/16 19:32 11/03/16 19:32 11/03/16 17:03 Intake and Output: 11/04/16 11/04/16 06:59 18:59 Intake Total 300 Balance 300 - Medications Medications: Current Medications Arformoterol Tartrate (Brovana) 15 mcg IH [id number] [facility] Budesonide (Pulmicort Respules) 0.5 mg IH [id number] [facility] Enoxaparin Sodium (Lovenox) 40 mg SC DAILY [facility] PRN Reason: Protocol Fentanyl (Duragesic) 1 patch TD Q72H [facility] Last Admin: 11/03/16 23:40 Dose: 1 patch Fentanyl (Duragesic) 1 patch TD Q72H [facility] Last Admin: 11/03/16 23:39 Dose: 1 patch Hydromorphone HCl (Dilaudid) 2 mg IVP Q3H PRN PRN Reason: Pain, severe (8-10) Last Admin: 11/04/16 06:15 Dose: 2 mg Sodium Chloride (Sodium Chloride 0.9%) 1,000 mls @ 90 mls/hr IV .[id number] [facility] Last Admin: 11/03/16 23:39 Dose: 90 mls/hr Oxycodone HCl (Oxycodone Immediate Release Tab) 15 mg PO Q4H PRN PRN Reason: Pain, moderate (4-7) Last Admin: 11/04/16 05:04 Dose: 15 mg Pantoprazole Sodium (Protonix Ec Tab) 40 mg PO ACB BRIA Pregabalin (Lyrica) 75 mg PO TID [facility] - Labs Labs: PT 11.3 Seconds (9.9-11.8) 11/03/16 15:45 INR 1.05 (0.93-1.08) 11/03/16 15:45 APTT 37.3 Seconds (23.7-30.8) H 11/03/16 15:45 - Constitutional Appears: Non-toxic, No Acute Distress - Head Exam Head Exam: ATRAUMATIC, NORMOCEPHALIC - Eye Exam Eye Exam: EOMI. absent: Scleral icterus - Respiratory Exam Respiratory Exam: NORMAL BREATHING PATTERN. absent: Respiratory Distress - GI/Abdominal Exam GI & Abdominal Exam: Soft. absent: Distended, Tenderness - Neurological Exam Neurological Exam: Alert, Awake, Oriented x3 - Skin Skin Exam: Dry, Warm Assessment and Plan - Assessment and Plan (Free Text) Assessment: 56M w/ non-small cell lung CA Plan: Await Pt discussion with PMD Planning for portacath placement Anticoagulation held at this time, pt NPO. Analgesia Will D/W Dr. Jeremie Roman PGY3
[2016-11-04] MEDS ORDERED: Arformoterol 15 mcg/2 ml Inh Sol IH SCH (08:00)
[2016-11-04] MEDS: Budesonide 0.5 mg/2 ml Inhal Susp UD IH SCH ×2 (08:08→19:30)
[2016-11-04] MEDS: Arformoterol 15 mcg/2 ml Inh Sol IH SCH ×2 (08:08→19:30)
[2016-11-04] MEDS ORDERED: Enoxaparin 40 mg Syringe SC SCH (10:00)
[2016-11-04] MEDS: Sodium Chloride 0.9% 1,000 ML IV SCH (11:57)
[2016-11-04] MEDS: Pantoprazole 40 mg EC Tab PO SCH (11:58)
--- NOTE | 2016-11-04 13:56 | CARD ---
APPROVED REPORT EKG Measurement Heart [id number] <Conclusion> Poor data quality, interpretation may be adversely affected Normal sinus rhythm Biatrial enlargement Abnormal ECG
[2016-11-04] MEDS: oxyCODONE 15 mg Immediate Release Tab PO SCH ×3 (17:34→23:49)
[2016-11-04] MEDS ORDERED: Lidocaine 1% Inj (20ml) IJ STA (18:26)
[2016-11-04] MEDS ORDERED: Triamcinolone Acetonide 40 mg/mL Inj IU STA (18:28)
--- NOTE | 2016-11-04 19:13 | CON ---
DATE: 11/04/2016 LOCATION: 365, bed 1. REQUESTING PHYSICIAN: Gary Fermin MD REASON FOR CONSULTATION: Severe right-sided neck pain and right shoulder blade pain. HISTORY OF PRESENT ILLNESS: The patient is a pleasant 56-year-old male with a past medical history o f nonsmall cell lung cancer diagnosed in 09/2016, history of chronic obstructive pulmonary disease, c omplains of severe neck pain and right-sided shoulder pain and shoulder blade pain. The patient stated that the pain was so severe that the patient walks with the neck tilted to one madhu e, and sometimes if the pain was so severe patient collapses unless he holds to a nearby object. Cur rently, the patient is getting Dilaudid IV push q. 3 hours, taking Duragesic patch 150 mcg q. 72 hour s, and Oxycodone 15 mg q. 4 hours scheduled. The patient stated with this regimen he is more comfort able but it does not last him. His visual analog scale on today's evaluation is 6/10. SOCIAL HISTORY: The patient denied any bowel or bladder dysfunction. He denied significant tingling and numbness to upper extremity. PAST MEDICAL HISTORY: As above. ALLERGIES: PENICILLIN. SOCIAL HISTORY: Former heavy smoker. REVIEW OF SYSTEMS: A 14-point review of systems was unremarkable except as mentioned in history of p resent illness, plus cachectic. PAST SURGICAL HISTORY: Status post anterior cervical diskectomy and fusion and right shoulder surger y. PHYSICAL EXAMINATION: GENERAL: The patient is lying in bed in mild distress, cachectic, chronically ill. HEENT: Normocephalic, atraumatic. PERRLA. RESPIRATORY SYSTEM: Normal breathing pattern. NECK: There is mild jugular venous distention. CARDIOVASCULAR: S1, S2 is normal. ABDOMEN: Soft and nontender. Nondistended. NEUROMUSCULAR: He is alert, awake, and oriented x 3, concentrates very well. Cranial nerves II-XII grossly intact. Coordination is grossly intact. There is significant tenderness over spinous proces s of cervical spine and right cervical paraspinal with tender trigger point and tightness of the righ t cervical paraspinal, right upper trapezius, supraspinatus and infraspinatus muscles. Sensation to light touch is slightly impaired in the right C6 dermatome. IMPRESSION: 1. Severe neck pain. 2. Fibromyalgia-like syndrome. 3. Cervical spondylosis without myelopathy. RECOMMENDATIONS: 1. Decision for surgery made today for bedside procedure for trigger point injection of right upper trapezius, supraspinatus and infraspinatus muscle using a 25 gauge 1.5 inch needle and injecting a mi xture of 10 mL of lidocaine 1% without epinephrine and mixed dose 1 mL of Kenalog 40 mg per mL in mul tiple trigger points. The patient tolerated the procedure very well, was in good condition at the co nclusion of the procedure. 2. The patient to continue with his current medication regimen. 3. The patient to follow up as an outpatient upon discharge for possible cervical epidural steroid i njection. 4. In the meantime, will order a new MRI of cervical spine. Gary Eli MD cc: [phone] TT: 11/04/2016 19:12:53 Confirmation # [id number] Dictation # [id number] mn
[2016-11-04] MEDS ORDERED: Aluminum Hydroxide/Magnesium 30 ML, DiphenhydrAMINE 75 MG, Lidocaine 2% Viscous 30 ML PO PRN (19:39)
[2016-11-04] MEDS: guaiFENesin-DM 600-30 mg ER Tab PO SCH (20:25)
--- NOTE | 2016-11-04 20:43 | CON ---
DATE: 11/04/2016 REFERRING PHYSICIAN: Dr. Fermin. REASON FOR CONSULT: Unresectable lung cancer; COPD; right upper back, shoulder intractable pain. HISTORY OF PRESENT ILLNESS: This is a 56-year-old gentleman known to have an unresectable lung cance r with metastatic disease to the bone, cervical radiculopathy, chronic lung disease, recently finishe d radiation therapy to his tumor and bone. Comes back to ER with intractable pain, cough, shortness of breath, admitted for further workup. PAST MEDICAL HISTORY: Obstructive lung disease, recently diagnosed lung cancer with mets to the spin e and ribs. SOCIAL HISTORY: Ex-smoker. Denies any alcohol use. FAMILY HISTORY: No significant cardiopulmonary disease reported. ALLERGIES: PENICILLIN. MEDICATIONS: He is on Brovana 15 mcg inhaled twice a day, Dilaudid 2 mg IV q. 3 hours p.r.n., Durag esic patch q. 72 hours, also on Flexeril 10 mg twice a day, Lidoderm patch to affected area, Lovenox 40 mg subQ daily, Lyrica 75 mg 3 times a day, oxycodone immediate release 15 mg q. 4 hours, Protonix 40 mg daily, Pulmicort inhaled twice a day, IV fluid normal saline at mL per hour. REVIEW OF SYSTEMS: No headache, no rhinitis. Has cough, sputum production. Complaining about sore throat. Upper back and shoulder pain is a little improved status post trigger point injection per Dr Luma Eli. No nausea, no vomiting, no diarrhea. Has dysuria. No leg pain or leg swelling. PHYSICAL EXAMINATION: VITAL SIGNS: Temperature is 98, heart rate is 93, respiratory rate is 20, blood pressure 111/68, pul se ox 97% on room air. HEENT: Moist mucous membrane. No ulcer or oral thrush noted. NECK: Supple. No JVD. LUNGS: Has a few scattered rhonchi. HEART: S1, S2. ABDOMEN: Soft, nontender. No organomegaly. EXTREMITIES: There is no edema. NEUROLOGIC: Awake, alert, follows simple commands. LABORATORY DATA: Shows hemoglobin 12.7, hematocrit 36.7, WBC 5.8, platelet is 272. Sodium 132, pota ssium 4.1, chloride 97, bicarbonate 25, BUN 23, creatinine 0.6, glucose 117, calcium is 9.3, AST 33, ALT 37, alkaline phosphatase is 100, albumin is 3.8. IMPRESSION AND PLAN: Intractable pain secondary to metastatic lung cancer versus adenocarcinoma, ch ronic obstructive lung disease. Pulmonary point of view, doing okay. We will add Mucinex 600 mg twi ce a day, Singulair 10 mg at bedtime, also add Daliresp 500 mcg daily, Tesheberon Carlos. The patient refused to take inhaled bronchodilator. We will order . Continue gastric and deep venous throm bosis prophylaxis. I spoke to patient's sister at the bedside. All the questions answered. Thank ana stallings and we will follow with you. Elisabet Pelaez MD cc: [phone] TT: 11/04/2016 20:43:01 Confirmation # [id number] Dictation # [id number]
[2016-11-05] MEDS: Sodium Chloride 0.9% 1,000 ML IV SCH ×2 (01:12→17:50)
--- NOTE | 2016-11-05 01:28 | CON ---
DATE: 11/04/2016 LOCATION: The patient is in room 365, bed 1. REASON FOR CONSULTATION: Unresectable carcinoma of the right upper lobe of the lung with direct inva reanna of the tumor in bone from the level of T6 and downwards to multiple vertebral bodies, presenting with significantly increasing and worsening scapular pain radiating down to the distribution of the right triceps, excruciating in nature with a pain scale score on a scale of 0-10 at least being 9 and 10. The patient has history of COPD, just quit smoking. Has a smoking history greater than 30 year s. Was admitted through the Emergency Room with worsening intractable pain. HISTORY OF PRESENT ILLNESS: The patient was recently diagnosed unresectable carcinoma of the right u pper lobe of the lung. In the old days, this could be called a tumor of the right lung, shirin fernanda with radiation. Had a CT-guided biopsy, which showed a poorly differentiated tumor consistent wi th lung primary. Further testing including EGFR and PD-L1 were pending. The patient was supposed to see Dr. Eli as an outpatient for a pain block, or at least to be assessed for pain block, but wa s unable to do so as he landed in the hospital again with worsening pain through the Emergency Room o goyo the weekend. The patient has been having also cough and shortness of breath associated with wors ening pain. PAST MEDICAL HISTORY: Chronic obstructive lung disease, recently diagnosed locally advanced lung car cinoma with extension into the spine without cord compression. SOCIAL HISTORY: The patient is an ex-smoker. Denies any alcohol abuse. FAMILY HISTORY: Noncontributory. REVIEW OF SYSTEMS: A 12-point system review of systems is negative except for the HPI. MEDICATIONS: The patient's medications include Brovana 15 mcg inhaled twice a day. He is on Dilaudi d 2 mg IV q. 3 hours. He is on Duragesic patch 125 mcg q. 72 hours, 10 mg b.i.d., Lidoderm pat ch to the affected area, Lovenox 40 mg subQ daily, Lyrica 75 mg 3 times a day, oxycodone immediate re lease 15 mg q. 4 hours, Protonix 40 daily, Pulmicort inhaled twice daily. He is on IV fluid, normal saline 100 mL an hour. PHYSICAL EXAMINATION: GENERAL: The patient is awake, alert, and oriented, examined in bed. His sister, Nadira, is by the bedside. VITAL SIGNS: T-max is 98.4, heart rate is 93, respirations 20, blood pressure is 111/68, pulse ox is 97% on room air. HEENT: Head is normocephalic, atraumatic. Temporal muscle wasting is noted. Examination of the gasper pharynx reveals no oropharyngeal lesions. Tongue is moist. NECK: Supple. There is no adenopathy. No jugular venous distention noted. NEUROLOGIC: The patient has significant pain in the nape of the neck and the posterior aspect of the right scapula, extending to the arm along the distribution of the triceps. The patient also complai ns of discomfort in the right axilla. LUNGS: Clear to percussion and auscultation anteriorly, scattered wheezes in both lungs posteriorly. HEART: Reveals S1 and S2 to be normal. No gallop or murmur is heard. ABDOMEN: Soft, nontender. Bowel sounds are present. No rebound, rigidity or guarding is noted. EXTREMITIES: Reveals no cyanosis, clubbing or edema. NEUROLOGIC: Reveals higher functions to be normal, no focal deficits are discernible. LABORATORY DATA: Reveals a hemoglobin of 12.7, hematocrit 36. WBC is 5.8, platelet count is 272,000 . Sodium is 132, potassium is 4.1, chloride is 97, bicarbonate is 25, BUN is 23, creatinine 0.6, glu cose 117, calcium is 9.3. AST 33, ALT 37, alkaline phosphatase is 100 with an albumin of 3.8. 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 As far as, and is concerned. The patient has chronic obstructive pulmonary d isease. The patient has been added on with Mucinex 600 b.i.d., Singulair 10 mg at bedtime and Dalire sp 500 mcg daily, along with Tessalon Perles. In the meantime, I told the patient that we would get Dr. Matthew Booth to see him to have insertion of a passport in the left arm and Dr. Booth said that he would take care of it by tomorrow morning. Continue gastric and deep venous thrombosis prophylaxis. We are going to assess him for systemic chemotherapy, put in a call to Dr. Eli to see for a can didate for any regional paty as well. Routine post exam instructions have been given to the patie nt. The patient will be started on systemic chemotherapy with carboplatin and Alimta, which would be a reasonable choice at this time. Lizzie Leary MD cc: [id number] TT: 11/05/2016 01:27:08 Confirmation # [id number] Dictation # [id number] mn
[2016-11-05] MEDS: oxyCODONE 15 mg Immediate Release Tab PO SCH ×5 (04:54→21:51)
--- NOTE | 2016-11-05 07:59 | HP ---
A 56-year-old male, admitted because of severe intractable back pain. HISTORY OF PRESENT ILLNESS: This is a 56-year-old man recently diagnosed with lung CA, poorly differ entiated cancer, extended to his spine, status post radiation therapy. The patient went home, stayed a couple of days. His pain was so severe to the level he cannot stay home. Came in to the ER for f urther evaluation and treatment. The patient seems unsteady, feeling weak. Appetite is diminished, but he is eating. There is no nausea, no vomiting, no diarrhea. The patient could not go to Dr. Shon obrien because of severity of pain and weakness and brought in to the ER for further evaluation. PAST MEDICAL HISTORY: As I mentioned above, COPD, lung CA, mets, chronic severe intractable back farnaz n. ALLERGIES: PENICILLIN. SOCIAL HISTORY: Positive smoking. No drinking. FAMILY HISTORY: Noncontributory except for his mother and sister, breast cancer in the family, cardi ac disease in the family. REVIEW OF SYSTEMS: As in the present illness. MEDICATIONS: At home, he was taking Duragesic patch oxycodone, , was given fentanyl patch 125, Lyrica 75 t.i.d., MiraLax, Lidoderm, Protonix, Colace, Dulcolax, albuterol nebulizers. PHYSICAL EXAMINATION: GENERAL: The patient came in, was admitted to the floor. VITAL SIGNS: Temperature 98.7, heart rate 87, blood pressure 115/80, respirations 18, saturation 97% on room air. HEAD AND NECK: Normal. No JVD, no thyromegaly. CHEST: Clear, good air entry. CARDIAC: First sound, second sound normal. ABDOMEN: Soft, nontender. EXTREMITIES: No edema. NEUROLOGIC: Normal. BACK: His spine is very tender to touch and decreased range of motion due to pain. LABORATORY DATA: White count 5.8, hemoglobin 12.7, hematocrit 36.7, platelets 272. Chemistry: Sodi um 132, potassium 4.1, chloride 97, bicarb 25, BUN 23, creatinine 0.6, blood sugar 117. Liver functi on test is normal. PTT 37.3, slightly elevated. IMPRESSION AND PLAN: A 56-year-old male: 1. Severe intractable back pain due to lung metastasis, poorly differentiated adenocarcinoma. We wi ll admit the patient. Continue IV Dilaudid for now. Continue Duragesic patch 125. We will get Rja Eli, pain management. Will see the patient for epidural injections. This patient will contin ue pain management here. In addition to his general weakness, he may need also IV access, Port-A-Cat h or Passport to his left arm or the brachial vein to get chemotherapy started. Continue pain manage ment as it is. Follow up with the pain management doctor, Dr. Eli. We will also get an oncology consult, Dr. Leary for further evaluation and treatment. 2. Chronic obstructive pulmonary disease. We will resume all his nebulizer treatment and we will co ntinue the rest of his medications. 3. Opioid induced constipation. This patient will be getting Relistor injection every other day. C ontinue MiraLax, continue Dulcolax. Continue current treatments. We will follow up clinically with Dr. Leary for further treatment. Gary Fermin MD cc: [phone] TT: 11/05/2016 07:58:10 en
[2016-11-05] MEDS: Budesonide 0.5 mg/2 ml Inhal Susp UD IH SCH (08:02)
[2016-11-05] MEDS: Arformoterol 15 mcg/2 ml Inh Sol IH SCH (08:02)
[2016-11-05] MEDS ORDERED: Lidocaine 2% Inj (20ml) ONE (08:32)
[2016-11-05] MEDS ORDERED: Vancomycin 500 mg (Oral/Rectal USE) ONE (08:34)
[2016-11-05] MEDS ORDERED: Midazolam 2 MG/2 ML VIAL ONE (08:59)
[2016-11-05] MEDS ORDERED: Sodium Chloride 0.45% 1,000 ML IV SCH (09:45)
--- NOTE | 2016-11-05 09:55 | CP.PCM.PN ---
Subjective - Date & Time of Evaluation Date of Evaluation: 11/05/16 Time of Evaluation: 06:45 - Subjective Subjective: Antonio Winters D.O. PGY-1, General Surgery Progress Note: Dr. Jeremie Beltran. 56 year old male with a PMH of non-small cell lung CA who presented to [facility] ER on 11/03/16 with complaints of right shoulder pain. Patient was seen and examined at bedside. Patient has spoke with Dr. Fermin about the protacath insertion and he has decided that he wants to proceed with the procedure. Patient at this time only has complains of the same right shoulder and back pain he presented with which is well controlled with his current pain regimen. No other complains elicited. Objective - Vital Signs/Intake and Output Vital Signs (last 24 hours): Temp Pulse Resp BP Pulse Ox 98.5 F 82 20 102/72 98 11/05/16 08:14 11/05/16 08:14 11/05/16 08:14 11/05/16 08:14 11/05/16 08:14 - Medications Medications: Current Medications Acetaminophen (Tylenol 325mg Tab) 650 mg PO Q4 PRN PRN Reason: Pain, Mild (1-3) Arformoterol Tartrate (Brovana) [id number] [facility] Last Admin: 11/05/16 08:02 Dose: Not Given Benzonatate (Tessalon Perles) 100 mg PO TID BRIA Budesonide (Pulmicort Respules) 0.[id number] [facility] Last Admin: 11/05/16 08:02 Dose: Not Given Al Hydrox/Mg Hydrox/Simethicone 30 ml/Diphenhydramine HCl 75 mg/Lidocaine 30 ml 0 ml PO Q2H PRN PRN Reason: Mouth/Throat Pain Cyclobenzaprine HCl (Flexeril) 10 mg PO BID BRIA Enoxaparin Sodium (Lovenox) [address] [facility] PRN Reason: Protocol Fentanyl (Duragesic) [address] [facility] Last Admin: 11/04/16 12:29 Dose: 1 patch Fentanyl (Duragesic) [address] [facility] Last Admin: 11/04/16 12:29 Dose: 1 patch Guaifenesin/Dextromethorphan (Mucinex-Dm 600-30 Mg) [address] [facility] Last Admin: 11/04/16 20:25 Dose: 1 tab Hydromorphone HCl (Dilaudid) 2 mg IVP Q3H PRN PRN Reason: Pain, severe (8-10) Last Admin: 11/04/16 21:55 Dose: 2 mg Sodium Chloride (Sodium Chloride 0.9%) 1,000 mls @ 90 mls/hr IV .[id number] [facility] Last Admin: 11/05/16 01:12 Dose: 90 mls/hr Sodium Chloride (Sodium Chloride 0.45%) 1,000 mls @ 80 mls/hr IV .[id number] [facility] Stop: 11/05/16 18:00 Lidocaine (Lidoderm) [address] [facility] Montelukast Sodium (Singulair) [address] [facility] Last Admin: 11/04/16 21:57 Dose: 10 mg Oxycodone HCl (Oxycodone Immediate Release Tab) [address] [facility] Last Admin: 11/05/16 04:54 Dose: 15 mg Pantoprazole Sodium (Protonix Ec Tab) [address] [facility] Last Admin: 11/04/16 11:58 Dose: 40 mg Pregabalin (Lyrica) [address] [facility] Last Admin: 11/04/16 17:34 Dose: 75 mg Roflumilast (Daliresp) [address] [facility] - Labs Labs: PT 11.3 Seconds (9.9-11.8) 11/03/16 15:45 INR 1.05 (0.93-1.08) 11/03/16 15:45 APTT 37.3 Seconds (23.7-30.8) H 11/03/16 15:45 - Constitutional Appears: Non-toxic, Cachectic, Chronically Ill - Head Exam Head Exam: ATRAUMATIC, NORMOCEPHALIC Additional comments: temporal wasting - Eye Exam Eye Exam: PERRL - Respiratory Exam Respiratory Exam: absent: Accessory Muscle Use, Respiratory Distress - GI/Abdominal Exam GI & Abdominal Exam: Soft. absent: Distended - Neurological Exam Neurological Exam: Alert, Awake, Oriented x3 - Skin Skin Exam: Dry, Warm Assessment and Plan - Assessment and Plan (Free Text) Assessment: 56 year old male with a PMH of non-small cell lung CA, consulted for portacath insertion. Plan: Will obtain consent, OR tomorrow for portacath placement On pain regimen by pain management NPO after midnight AC on hold Will discuss with attending physician. Thank you for the pleasure of participating in the care of this patient.
[2016-11-05] MEDS: Pantoprazole 40 mg EC Tab PO SCH (10:24)
[2016-11-05] MEDS: Lidocaine 5% Patch TD SCH (10:44)
[2016-11-05] MEDS: guaiFENesin-DM 600-30 mg ER Tab PO SCH ×2 (10:45→17:32)
[2016-11-05] MEDS: HYDROmorphone 2 mg/ml ISec IVP PRN (10:45)
--- NOTE | 2016-11-05 17:00 | PN ---
DATE: 11/05/2016 REFERRING PHYSICIAN: Dr. Fermin SUBJECTIVE: He is lying in the bed, feels much better. Status post ____ paty by ____ yesterd ay. Status post PICC line placement. Feels better, still has a cough. Still complaining about oral discomfort with food. No nausea, no vomiting. No diarrhea. No leg pain or leg swelling. OBJECTIVE: GENERAL: No acute distress. VITAL SIGNS: Temp is 98, heart rate is 71, respiratory rate is 20, blood pressure 140/84, pulse ox 1 00% on 3 liters nasal cannula. HEENT: Moist mucous membrane. NECK: Supple, no JVD. LUNGS: Have a fair airflow with few rhonchi. HEART: S1 and S2. ABDOMEN: Soft, nontender. No organomegaly. EXTREMITIES: There is no edema. NEUROLOGIC: Awake, alert, follows simple command. MEDICATIONS: He is on Brovana 15 mcg inhaled twice a day, Daliresp 500 mcg daily, Dilaudid 2 mg q.3 hours p.r.n., Duragesic patch q.72 hours, Flexeril 10 mg twice a day, lidocaine patch at affected are a, Lovenox 40 mg daily, Lyrica 75 mg 3 times a day, Mucinex DM 600 mg 1 tab twice a day, oxycodone im mediate release 15 mg q.4 hours, Protonix 40 mg daily, Pulmicort inhaled twice a day, Singulair 10 mg daily, IV fluid half normal saline 80 mL per hour, Tessalon Perles 100 mg 3 times a day, Tylenol p.r .n. basis. LABORATORY DATA: Reviewed. No new lab is available since yesterday. IMPRESSION AND PLAN: Intractable pain with breast cancer, metastasized to spine and ribs, chronic ob structive lung disease, oral ulcers. The patient had a ____ block done yesterday by ____. Larissa blanchard point of view, continue bronchodilator. Gastric prophylaxis. Deep venous thrombosis prophylaxi s. Continue Magic Mouthwash. Oncology followup. Seen by Dr. Leary. Thank you and we will follow with you. Elisabet Pelaez MD cc: [phone] TT: 11/05/2016 17:00:24 Confirmation # [id number] Dictation # [id number] sn
--- NOTE | 2016-11-05 20:13 | VASCULAR ---
PROCEDURE: Ultrasound and fluoroscopic leftupper extremity venous access port. CLINICAL HISTORY: Stage IV lung carcinoma.Venous port for chemotherapy. PHYSICIAN(S): Matthew Booth M.D. TECHNIQUE: The relative risks and indications of the procedure were explained to the patient and consent obtained. The patient was placed supine on the arteriogram table and the left arm prepped and draped in the usual sterile fashion. Conscious sedation monitoring was provided throughout the procedure by a nurse. Antibiotics were given prior to the procedure. A tourniquet was applied the left axilla. Under direct ultrasound guidance, the left basilic vein was punctured with a micro-puncture set. A 0.035 angled Glidewire was advanced into the IVC. A 4 cm incision was made at the venous access site and the pocket blunted dissected. A 6 [place] single-lumen catheter, 41 cm long, was advanced to the SVC/RA junction. The catheter was trimmed and attached to the port. The port aspirates and injects easily. The port was placed in the pocket and closed in 2 layers. The patient tolerated the procedure well. IMPRESSION: Ultrasound and fluoroscopically placed left upper extremity venous access port.
--- NOTE | 2016-11-06 01:03 | PN ---
DATE: 11/05/2016 LOCATION: The patient is in room 365, bed 1. REASON FOR CONSULTATION: This is a 56-year-old male with locally advanced stage IV nonsmall cell car cinoma of the lung, poorly differentiated, that is invading directly mechanically of the vertebral catherine dies between T3 and T6 secondary to this patient has been in severe intractable pain, for which he wa s admitted to the Emergency Room and he was not feeling better, even with taking oral narcotics and D uragesic patches. The patient was admitted for IV narcotic therapy along with which the patient was also assessed by Dr. Gary Eli, our pain specialist. The patient did get a regional block by hi m last night and he feels significantly improved. Pain on pain scale of 0-10 is down to 6 when it us ed to be a 10. The patient is also status post PICC line placement. He feels overall better, still with coughing, some oral discomfort, but otherwise significantly improved. No nausea, no vomiting, n o diarrhea, leg pain or leg swelling. OBJECTIVE: GENERAL: The patient is in no acute distress. VITAL SIGNS: Reveal T-max of 98.4, heart rate is 71, respirations 20, blood pressure is 140/84, puls e ox is 100% on 3 liters of oxygen. HEENT: Head is normocephalic, atraumatic. Conjunctivae pale. Sclerae are anicteric. Pupils are eq ually reactive to light and accommodation. Examination of the oropharynx reveals no oropharyngeal le sions. Tongue is moist. There is no evidence of thrush. NECK: Supple. There is no adenopathy. LUNGS: Reveals good airflow with few rhonchi bilaterally. HEART: Reveals S1 and S2 to be normal. No gallop or murmur is heard. ABDOMEN: Soft, nontender. Bowel sounds are present. EXTREMITIES: Reveals no cyanosis, clubbing or edema. NEUROLOGIC: Reveals higher functions to be normal, no focal deficits are noted. MEDICATIONS: The patient's medications were reviewed. He is on Brovana 15 mcg inhaled twice a day, Daliresp 500 mcg daily, Dilaudid 2 mg IV q. 3 hours p.r.n., Duragesic patch q. 72 hours has been incr eased to 150 mcg, 12 mg twice a day, lidocaine patch to the affected area 2 patches simultaneou sly to the scapular area, Lovenox 40 mg daily, Lyrica 75 mg 3 times a day, Mucinex DM 600 mg 1 b.i.d. , oxycodone 15 mg q. 4 hours, Protonix 40 mg daily, Pulmicort inhaled twice a day, Singulair 10 mg da sabas, IV fluid of normal saline 80 mL an hour, Tessalon Perles 100 mg 3 times a day, Tylenol p.r.n. LABORATORY DATA: No new labs were drawn today. ASSESSMENT NOTES AND PLAN: This is a 56-year-old white male with stage IV lung nonsmall cell lung ca rcinoma with contiguous extension into the spine and extending into the neural foramina without compr omising the spinal cord, status post radiation, status post PICC line placement, status post regional block. Is now being assessed for systemic chemotherapy with carboplatin and Alimta. have a d iscussion with the family. I had spoken to the patient and, through his sister, tried to convince th e patient that the best thing for him would be systemic chemotherapy with carbo/Alimta plus or minus an immunotherapy drug such as Keytruda. Will initiate therapy with carbo/Alimta and have the Keytrud a as an outpatient because it may be difficult for us to obtain the drug while he is in the hospital. The patient is understanding and will proceed with chemotherapy as soon as it is feasible. Will tr y to obtain consent and organize the treatment for some time tomorrow. Routine post exam instructions have been given to the patient. We will continue to monitor him for a ny side effects that he may on the chemotherapy. Will give the patient B12 1 mL and start foli c acid 1 mg b.i.d. before initiating therapy for tomorrow. Lizzie Leary MD cc: [phone] TT: 11/06/2016 01:03:24 Confirmation # [id number] Dictation # [id number] sary
[2016-11-06] MEDS: oxyCODONE 15 mg Immediate Release Tab PO SCH ×4 (03:00→13:12)
[2016-11-06] MEDS: Sodium Chloride 0.9% 1,000 ML IV SCH ×4 (04:45→22:31)
[2016-11-06 07:39] LABS: ADD MANUAL DIFF? NO
[2016-11-06 07:49] LABS: BASO # 0.01 K/mm3 (0.0-2.0); BASO % 0.2 % (0.0-3.0); EOS % 0.5 % (1.5-5.0); GRAN # 3.21 (1.4-6.5); GRAN % 73.1 % (50.0-68.0); HEMATOCRIT 35.4 % (42.0-52.0); LYMPH # 0.7 (1.2-3.4); LYMPH % 15.9 % (22.0-35.0); MEAN CELL VOLUME 92.7 fL (80.0-105.0); MEAN CORPUSCULAR HEMOGLOBIN 30.9 pg (25.0-35.0); MEAN CORPUSCULAR HGB CONC 33.3 g/dl (31.0-37.0); MEAN PLATELET VOLUME 9.4 fl (7.0-11.0); MONO # 0.5 (0.1-0.6); MONO % 10.3 % (1.0-6.0); PLATELET COUNT 242 10^3/uL (120.0-450.0); RED CELL DISTRIBUTION WIDTH 13.6 % (11.5-14.5); WHITE BLOOD COUNT 4.4 10^3/ul (4.5-11.0)
[2016-11-06] MEDS: Arformoterol 15 mcg/2 ml Inh Sol IH SCH (08:04)
[2016-11-06] MEDS: Budesonide 0.5 mg/2 ml Inhal Susp UD IH SCH ×2 (08:04→20:52)
[2016-11-06 08:28] LABS: ALB/GLOB RATIO 0.9 (1.1-1.8); ALKALINE PHOSPHATASE 76 U/L (38-133); ALT/SGPT 48 U/L (7-56); AST/SGOT 28 U/L (15-59); BILIRUBIN,TOTAL 0.4 mg/dL (0.2-1.3); BLOOD UREA NITROGEN 14 mg/dL (7-21); CALCIUM 8.6 mg/dL (8.4-10.5); CARBON DIOXIDE 27 mmol/L (21-33); CHLORIDE 102 mmol/L (98-107); GFR AFRICAN-AMERICAN > 60; GLUCOSE,RANDOM 128 mg/dL (70-110); MAGNESIUM 1.9 mg/dL (1.7-2.2); POTASSIUM 3.7 mmol/L (3.6-5.0); SODIUM 136 mmol/L (132-148); TOTAL PROTEIN 6.7 g/dL (5.8-8.3)
[2016-11-06] MEDS: Pantoprazole 40 mg EC Tab PO SCH (08:50)
[2016-11-06] MEDS: guaiFENesin-DM 600-30 mg ER Tab PO SCH ×2 (10:01→18:32)
[2016-11-06] MEDS: Lidocaine 5% Patch TD SCH (10:01)
[2016-11-06] MEDS: HYDROmorphone 2 mg/ml ISec IVP PRN ×4 (10:18→22:30)
--- NOTE | 2016-11-06 15:39 | PN ---
DATE: 11/06/2016 REFERRING PHYSICIAN: Dr. Fermin. SUBJECTIVE: The patient is lying in the bed. Nurse from interventional radiology at bedside tay yeager dressing for the Port-A-Cath. He feels better overall. His pain of the shoulder, upper back is be tter. Mild cough. No nausea, no vomiting, no diarrhea. No leg pain or leg swelling. OBJECTIVE: GENERAL: No acute distress. VITAL SIGNS: Temperature is 98, heart rate is 80, respiratory rate is 18, blood pressure 104/72, pul se ox 96% on room air. HEENT: Moist mucous membrane. Has 2 ulcers. NECK: Supple. No JVD. LUNGS: Have a few scattered rhonchi. HEART: S1, S2. ABDOMEN: Soft, nontender. No organomegaly. EXTREMITIES: There is no edema. Left upper extremity has a Port-A-Cath. NEUROLOGIC: Awake, alert, follows simple commands. MEDICATIONS: He is on Brovana 15 mcg inhaled twice a day, Daliresp 500 mcg daily, Dilaudid 2 mg q. 3 hours prn, fentanyl patch q. 72 hours, Flexeril is 10 mg twice a day, folic acid 1 mg daily, Lidoder m patch daily, Lovenox 40 mg daily, Lyrica 75 mg 3 times a day, Mucinex DM 600/30 one tab twice a day , oxycodone immediate release 15 mg q. 4 hours p.r.n., Protonix 40 mg daily, budesonide 0.5 mg q. 12 hours, Singulair 10 mg daily, IV fluid normal saline 90 mL per hour, Tessalon Perles 100 mg 3 times a day, Tylenol on a p.r.n. basis. LABORATORY DATA: Shows hemoglobin 11.8, hematocrit 35.4, WBC 4.4, platelet count is 242. Sodium 136 , potassium 3.7, chloride 102, bicarbonate 27, BUN 14, creatinine 0.6, glucose 128, calcium 8.6, magn esium 1.9. AST 28, ALT 48, alk phos is 76. IMPRESSION AND PLAN: Unresectable lung cancer with metastatic disease to the bone and spine, admitte d with intractable pain requiring trigger point injection, has chronic lung disease, oral ulcers, sta tus post [id number]. Spoke to patient and family at bedside. All their questions answered. Co ntinue bronchodilators, gastric prophylaxis, DVT prophylaxis. Dr. Leary will follow up. Thank you, and will follow with you. Elisabet Pelaez MD cc: [phone] TT: 11/06/2016 15:39:01 Confirmation # [id number] Dictation # [id number] mn
[2016-11-06] MEDS ORDERED: oxyCODONE 30 mg Immediate Release Tab PO PRN (16:00)
--- NOTE | 2016-11-06 19:36 | PN ---
DATE: 11/05/2016 HISTORY OF PRESENT ILLNESS: He is a 56-year-old male with lung CA, mets to the spine. Came in sever e, intractable back pain. The patient, currently today, he had a PassPort in his left arm for IV the rapy. Also had initially some local injection by Dr. Gary Eli in pain management. He is curre ntly on IV Dilaudid. PHYSICAL EXAMINATION: VITAL SIGNS: Currently, temperature 98.7, heart rate 87, blood pressure 108/74, respiratory rate 26, saturation 96% on room air. HEAD AND NECK: Normal. No JVD. CHEST: Clear. Diminished breath sounds. CARDIAC: First sound, second sound normal. ABDOMEN: Soft, nontender. EXTREMITIES: No edema. NEUROLOGIC: Normal. SPINE: Very tender to the spine. LABORATORY STUDIES: Noted for blood sugar 117. Otherwise, chemistries normal. IMPRESSION AND PLAN: 1. Severe intractable spine pain. Continue IV Dilaudid. Continue current pain meds. Seen by Dr. Costa govea. Local injection was given. Will be scheduled for epidural. 2. The patient has lung carcinoma with metastases. Getting chemotherapy. PassPort has been replace d in his left arm. Will continue for while with oncologist. The patient is status post radiotherapy to his spine. 3. Chronic obstructive pulmonary disease, chronic anxiety. Continue current management. Continue c urrent treatment. Continue gastrointestinal and deep vein thrombosis prophylaxis. Gary Fermin MD cc: [phone] TT: 11/06/2016 19:35:25 Confirmation # [id number] Dictation # [id number] ludmila
[2016-11-06] MEDS: oxyCODONE 30 mg Immediate Release Tab PO SCH (21:21)
[2016-11-06] MEDS: Nystatin 100,000 Units/ml Oral Susp 5 ml UD PO SCH (21:22)
[2016-11-06] MEDS: Aluminum Hydroxide/Magnesium 30 ML, DiphenhydrAMINE 75 MG, Lidocaine 2% Viscous 30 ML PO SCH (21:22)
--- NOTE | 2016-11-06 21:49 | PN ---
DATE: 11/06/2016 This is the patient's hospital visit on the medical floor. For Dr. Leary. SUBJECTIVE: The patient is a 56-year-old male with locally advanced stage IV [id number]-mcer CA of th e lung, poorly differentiated, invading the vertebral bodies T3 to T6 with severe intractable pain wi the patient on significant narcotic analgesics and Duragesic patch. With this, the patient is now being treated by Dr. Eli recently for regional block with modest improvement. The patient is al so status post PICC line placement with the patient otherwise resting comfortably. His chemotherapy is to start in the near future as per Dr. Leary. PHYSICAL EXAMINATION: VITAL SIGNS: Temperature 97.6, pulse 80, respirations 18, blood pressure 104/72, pulse ox 96%. HEENT: Unremarkable. NECK: Supple. HEART: Regular rate. LUNGS: Occasional rhonchi. ABDOMEN: Soft, nontender. EXTREMITIES: No edema. SKIN: Warm, dry, and clear. NEUROLOGIC: Awake and alert with tenderness to gentle palpation and decreased range of motion of the shoulder on the right. LABORATORY DATA: The patient's labs were done. White blood cell count of 4.4, hemoglobin 11.8, han tocrit 35.4, platelet count 242,000 with a chem metabolic panel showing a normal chem metabolic panel . The patient did have a cardiac cath. The report is not available at present. The patient did have placement of a PICC line yesterday as per Dr. Matthew Booth. ASSESSMENT: Unresectable stage IV cancer, lung metastases to the bone and spine, intractable pain of cancer, chronic obstructive pulmonary disease, anxiety. His cancer is stage IV byu-lbcjv-[id number] CA of the lung. PLAN: To continue the present medical regimen with analgesics as per Dr. Eli's recommendation wi consultants' recommendations to be continued with chemotherapy to be begun in the near future as p er Dr. Leary's recommendations with possible systemic chemotherapy with carbo and Alimta or Keytrud a. We will monitor clinically with labs. Reagan Antoine MD cc: [phone] TT: 11/06/2016 21:49:09 Confirmation # [id number] Dictation # [id number] tn
[2016-11-06] MEDS ORDERED: Dexamethasone 20 MG in Sodium Chloride 0.9% 50 ML IVPB ONE (22:00)
[2016-11-07] MEDS: oxyCODONE 30 mg Immediate Release Tab PO SCH ×6 (01:27→20:09)
[2016-11-07] MEDS: HYDROmorphone 2 mg/ml ISec IVP PRN ×5 (04:23→20:10)
[2016-11-07] MEDS: Aluminum Hydroxide/Magnesium 30 ML, DiphenhydrAMINE 75 MG, Lidocaine 2% Viscous 30 ML PO SCH ×6 (05:40→21:00)
[2016-11-07 08:06] LABS: ADD MANUAL DIFF? NO
[2016-11-07 08:10] LABS: GRAN # 3.97 (1.4-6.5); GRAN % 79.9 % (50.0-68.0); HEMATOCRIT 32.3 % (42.0-52.0); LYMPH # 0.7 (1.2-3.4); LYMPH % 13.9 % (22.0-35.0); MEAN CORPUSCULAR HEMOGLOBIN 30.5 pg (25.0-35.0); MEAN CORPUSCULAR HGB CONC 33.1 g/dl (31.0-37.0); MONO # 0.3 (0.1-0.6); MONO % 6.2 % (1.0-6.0); PLATELET COUNT 238 10^3/uL (120.0-450.0); RED CELL DISTRIBUTION WIDTH 13.7 % (11.5-14.5)
[2016-11-07 08:23] LABS: ALB/GLOB RATIO 1.1 (1.1-1.8); ALKALINE PHOSPHATASE 70 U/L (38-133); ALT/SGPT 44 U/L (7-56); AST/SGOT 25 U/L (15-59); BILIRUBIN,TOTAL 0.3 mg/dL (0.2-1.3); BLOOD UREA NITROGEN 12 mg/dL (7-21); CALCIUM 8.7 mg/dL (8.4-10.5); CARBON DIOXIDE 30 mmol/L (21-33); CHLORIDE 100 mmol/L (98-107); GFR AFRICAN-AMERICAN > 60; GLUCOSE,RANDOM 171 mg/dL (70-110); MAGNESIUM 1.8 mg/dL (1.7-2.2); POTASSIUM 3.9 mmol/L (3.6-5.0); SODIUM 135 mmol/L (132-148); TOTAL PROTEIN 6.4 g/dL (5.8-8.3)
[2016-11-07] MEDS: Budesonide 0.5 mg/2 ml Inhal Susp UD IH SCH ×2 (08:26→21:00)
[2016-11-07] MEDS: Pantoprazole 40 mg EC Tab PO SCH (08:34)
[2016-11-07] MEDS ORDERED: Alum-Mag Hydrox-Simethicone Susp (30 mL) ONE (09:05)
--- NOTE | 2016-11-07 09:10 | PN ---
DATE: 11/06/2016 The patient seems stable. ____ He has complaint of dry mouth, itchy throat. He also complained init ially of right jaw pain with chewing. Otherwise stable. No respiratory distress. Getting chemother apy in the morning. PHYSICAL EXAMINATION: VITAL SIGNS: Temperature 98.5, heart rate 80, blood pressure 104/72, respiration 18, saturation 96%. HEAD AND NECK: Normal. No JVD, no thyromegaly. He has right jaw mild tenderness. CHEST: Clear. CARDIAC: First sound, second sound normal. ABDOMEN: Soft, nontender. EXTREMITIES: No edema. NEUROLOGIC: Normal except generally weak. LABORATORY DATA: As follows: White count 4.4, hemoglobin 11.8, hematocrit 35.4, platelets 242. Sod ium 136, potassium 3.7, chloride 102, bicarb 27, BUN 14, creatinine is 0.6, blood sugar 128. Liver f unction test is normal. PT, PTT are normal. IMPRESSION AND PLAN: 1. Chronic severe intractable back pain. Continue Dilaudid. Continue Duragesic patch. Continue ox ycodone. Seems improved. The patient will need epidural injections. 2. 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 The patient already had a PassPort in the left arm. He is going to get chemotherapy in the morning. Wi ll continue current treatment for now. 3. Right jaw pain; temporomandibular joint a possibility. We may consider giving him ibuprofen to h elp the pain. Also, he is getting higher dose of narcotics. Will observe, and if it continues we wi ll give other medications, including Toradol. 4. The patient does have dry mouth, itchy throat, difficulty swallowing. The patient is an immunoco mpromised patient, history of steroids. Will continue Mycostatin swish and swallow 4 times a day and followup clinically. 5. Chronic obstructive pulmonary disease. Continue inhaled bronchodilators, ____ PLAN: Continue physical therapy. The patient may need to go for rehab for getting ____ therapies, m ay need to go to rehab for further treatment. Gary Fermin MD cc: [phone] TT: 11/07/2016 09:09:32 Confirmation # [id number] Dictation # [id number] mn
[2016-11-07] MEDS: guaiFENesin-DM 600-30 mg ER Tab PO SCH ×2 (09:13→18:22)
[2016-11-07] MEDS: Nystatin 100,000 Units/ml Oral Susp 5 ml UD PO SCH ×4 (09:13→21:43)
[2016-11-07] MEDS: Lidocaine 5% Patch TD SCH (09:14)
[2016-11-07] MEDS: Sodium Chloride 0.9% 1,000 ML IV SCH ×2 (12:28→18:23)
[2016-11-07] MEDS ORDERED: PEMETREXED IV ONE (14:00)
[2016-11-07] MEDS ORDERED: SODIUM CHLORIDE 0.9% IV ONE (14:00)
[2016-11-07] MEDS ORDERED: Dexamethasone 20 MG, DiphenhydrAMINE 25 MG, Famotidine 20 MG, Ondansetron 16 MG in Sodi... IVPB ONE (14:00)
--- NOTE | 2016-11-07 18:01 | PN ---
DATE: 11/07/2016 REFERRING PHYSICIAN: Dr. Fermin. SUBJECTIVE: He is sitting on side of the bed. Sister is at bedside. Night was unremarkable. Feels better. Still has some cough and shortness of breath. Pain is much better. Has a left upper extrem ity venous access. No nausea, no vomiting, no diarrhea. No leg pain or leg swelling. OBJECTIVE: GENERAL: No acute distress. VITAL SIGNS: Temperature is 98, heart rate is 95, respiratory rate is 20, blood pressure 117/77, pul se ox 99% on room air. HEENT: Moist mucous membranes. Crowded airway. NECK: Supple, no JVD. LUNGS: Scattered rhonchi in the right lung. HEART: S1, S2. ABDOMEN: Soft, nontender. No organomegaly. EXTREMITIES: There is no edema. NEUROLOGIC: Awake, alert, follows simple command. MEDICATIONS: He is on Daliresp 500 mcg daily, Dilaudid 2 mg IV q. 3 hours p.r.n., Duragesic patch q. 72 hours, Flexeril 10 mg daily, folic acid 1 mg daily, Lidoderm patch daily, Lyrica 75 mg 3 times a day, Medrol 8 mg twice a day, Mucinex 1 tablet twice a day, mg daily, oxycodone immediate relea se 30 mg q. 4 hours, Protonix 40 mg daily, Pulmicort inhaled twice a day, Singulair 10 mg daily, IV f luid normal saline 90 mL per hour, Tessalon Perles 3 times a day, Tylenol on p.r.n. basis. LABORATORY DATA: Shows hemoglobin 10.7, hematocrit 32.3, WBC 5.0, platelet is 238. Sodium 135, pota ssium 3.9, chloride 100, bicarbonate 30, BUN 12, creatinine 0.5, glucose 171, calcium is 8.7, AST 25, ALT 44, alkaline phosphatase is 70, albumin is 3.3. IMPRESSION AND PLAN: Unresectable lung cancer with metastatic disease to bone and spine, chronic obs tructive lung disease, status post trigger point injection. Waiting for chemotherapy to be started. Continue IV fluid, bronchodilator, pain management, gastric and deep venous thrombosis prophylaxis. Thank you and we will follow with you. Elisabet Pelaez MD cc: [phone] TT: 11/07/2016 18:01:03 Confirmation # [id number] Dictation # [id number] ln
--- NOTE | 2016-11-07 21:22 | PN ---
DATE: 11/07/2016 This is patient's hospital visit on the medical floor. For Dr. Leary. SUBJECTIVE: The patient is a 56-year-old male seen sitting up in bed with at the bedside. The patient reporting significant improvement in his pain with chemotherapy begun today as per Dr. Urmila garrett's protocol. With this, the patient is known to have stage IV nonsmall cell CA of the lung with inv asion to the vertebral bodies. PHYSICAL EXAMINATION: VITAL SIGNS: Temperature 98, pulse 95, respirations 20, blood pressure 117/77 and pulse ox 99%. HEENT AND NECK: Unremarkable with minimal tenderness to range of motion to the right lateral neck. O therwise neck is supple. HEART: Regular rate. LUNGS: Clear. ABDOMEN: Soft, nontender. SKIN: Warm, dry and clear. NEUROLOGIC: Awake, alert, and oriented x 3. LABORATORY DATA: The patient's labs were done. White blood cell count 5.0, hemoglobin 10.7, hematoc rit 32.3, platelet count of 238,000 with a chem metabolic panel completely within normal range. ASSESSMENT: Unresectable stage IV nonsmall cell cancer of the lung with metastases to the vertebral bodies, intractable pain of cancer, chronic obstructive pulmonary disease, anxiety. PLAN: The patient is to continue present medical regimen with analgesics to continue for his pain wi th chemotherapy as per Dr. Leary's recommendations to include carboplatin. The patient is to continue present medical regimen. We will monitor clinically and with labs. Reagan Antoine MD cc: [phone] TT: 11/07/2016 21:21:05 Confirmation # [id number] Dictation # [id number] dasha
[2016-11-08] MEDS: HYDROmorphone 2 mg/ml ISec IVP PRN ×4 (01:06→20:37)
[2016-11-08] MEDS: oxyCODONE 30 mg Immediate Release Tab PO SCH ×7 (01:06→20:38)
[2016-11-08] MEDS: Aluminum Hydroxide/Magnesium 30 ML, DiphenhydrAMINE 75 MG, Lidocaine 2% Viscous 30 ML PO SCH ×5 (02:12→17:34)
[2016-11-08] MEDS: guaiFENesin-DM 600-30 mg ER Tab PO SCH ×2 (06:30→17:35)
[2016-11-08 07:20] LABS: HEMATOCRIT 33.4 % (42.0-52.0); MEAN CELL VOLUME 93.6 fL (80.0-105.0); MEAN CORPUSCULAR HEMOGLOBIN 30.8 pg (25.0-35.0); MEAN CORPUSCULAR HGB CONC 32.9 g/dl (31.0-37.0); MEAN PLATELET VOLUME 9.7 fl (7.0-11.0); RED CELL DISTRIBUTION WIDTH 14.1 % (11.5-14.5); WHITE BLOOD COUNT 9.1 10^3/ul (4.5-11.0)
[2016-11-08 07:27] LABS: ALB/GLOB RATIO 1.1 (1.1-1.8); ALKALINE PHOSPHATASE 73 U/L (38-133); ALT/SGPT 48 U/L (7-56); AST/SGOT 27 U/L (15-59); BILIRUBIN,TOTAL 0.3 mg/dL (0.2-1.3); BLOOD UREA NITROGEN 18 mg/dL (7-21); CALCIUM 8.9 mg/dL (8.4-10.5); CARBON DIOXIDE 29 mmol/L (21-33); CHLORIDE 98 mmol/L (98-107); GFR AFRICAN-AMERICAN > 60; GLUCOSE,RANDOM 123 mg/dL (70-110); POTASSIUM 4.1 mmol/L (3.6-5.0); SODIUM 135 mmol/L (132-148); TOTAL PROTEIN 6.7 g/dL (5.8-8.3)
[2016-11-08] MEDS: Pantoprazole 40 mg EC Tab PO SCH (07:54)
[2016-11-08] MEDS: Budesonide 0.5 mg/2 ml Inhal Susp UD IH SCH ×2 (08:15→20:07)
[2016-11-08] MEDS: Lidocaine 5% Patch TD SCH (09:40)
[2016-11-08] MEDS: Nystatin 100,000 Units/ml Oral Susp 5 ml UD PO SCH ×4 (09:41→22:00)
[2016-11-08] MEDS: Sodium Chloride 0.9% 1,000 ML IV SCH (09:41)
--- NOTE | 2016-11-08 12:45 | PN ---
DATE: 11/07/2016 The patient is stable hemodynamically. Pain seems controlled. Planning to get chemotherapy, probabl y today. The patient has no other complaint. No change and no new complaint. PHYSICAL EXAMINATION: VITAL SIGNS: Temperature .7, heart rate 87, blood pressure 108/74, respirations 20, saturating 96%. HEAD AND NECK: Normal. No JVD, no thyromegaly. CHEST: Clear, good air entry. CARDIAC: First sound, second sound normal. ABDOMEN: Soft, nontender. EXTREMITIES: No edema. NEUROLOGIC: Normal. BACK: The patient's spine is tender due to mets. LABORATORY STUDIES: On ____, white count 5, hemoglobin 10.7, hematocrit 32.3, platelets 238. Chemistry shows sodium 135, potassium 3.9, chloride 100, bicarb 30, BUN 12, creatinine 0.8, blood s ugar 171. IMPRESSION AND PLAN: 1. Lung cancer, poorly differentiated adenocarcinoma with mets to the spine, status post radiation t herapy. Plan: Continue current pain management. We will discuss with Dr. Eli for local epidura l injections. 2. Lung cancer with mets, getting chemotherapy with Dr. Leary. 3. Chronic obstructive pulmonary disease. Continue current management. Continue inhaled bronchodil ators. 4. Opioid-induced constipation. Continue current medicine for constipation. The patient getting Re listor every other day and continue current medication. Gastrointestinal and deep venous thrombosis prophylaxis and Dilaudid IV, Duragesic patch, Flexeril, folic acid, Lidoderm, Lovenox, Lyrica, Medrol , Mucinex DM, oxycodone, Protonix, Pulmicort, Singulair, Tessalon Perles, Tylenol. Gary Fermin MD cc: [phone] TT: 11/08/2016 12:43:48 Confirmation # [id number] Dictation # [id number] en
--- NOTE | 2016-11-08 17:02 | PN ---
DATE: 11/08/2016 The patient is in room 365, bed 1. REASON FOR CONSULTATION: This is a 56-year-old male with locally advanced stage IV nonsmall cell tanisha g carcinoma, poorly differentiated that is indirectly invading mechanically into the vertebral bodies between T3 and T6. Secondary to this, the patient has been having severe intractable pain for which he was admitted through the Emergency Room as he was not feeling better even taking oral narcotics a nd Duragesic patches. The patient was admitted for IV narcotic therapy along which he was also asses sed by Dr. Eli, the pain specialist, and he had trigger point injections where there was temporar y pain relief for about 27 hours or so. The patient's pain has come back. He is still on IV Dilaudi d along with the patches and he feels that the pain is controlled, but not gone, still the pain level is somewhere between 6 and 7 on a continuous basis from a maximum pain level of 10. The patient had a PICC line ____ put in and he was started on systemic chemotherapy. Had his chemotherapy without a ny untoward side effects. Early this morning, patient said he had a coughing fit and when he coughed there was a tinge of blood in his phlegm. No history of nausea. No history of vomiting. No histor y of diarrhea, leg pain or leg swelling. OBJECTIVE: GENERAL: The patient is examined in bed. The patient was able to sit out of bed for me. VITAL SIGNS: Stable as stated on the chart. HEENT: Head is normocephalic, atraumatic. Conjunctivae pale. Sclerae are anicteric. Pupils are eq ually reactive to light and accommodation. Examination of the oropharynx reveals no oropharyngeal le sions. Tongue is moist. No oropharyngeal lesions are noted. No ulcerations are noted. NECK: Supple. There is no adenopathy. LUNGS: Clear to percussion and auscultation on the left side. The patient had decreased breath soun ds on the right side upper lobe posteriorly. The patient has scattered wheezes and rhonchi in the sa me lobe. CARDIOVASCULAR: Reveals S1 and S2 to be normal. No gallop or murmur is heard. ABDOMEN: Soft, nontender. Bowel sounds are present. EXTREMITIES: Reveals no cyanosis, clubbing or edema. NEUROLOGIC: Reveals no focal deficits. The patient still has pain in the scapular region on the rig ht side radiating down to the upper arm on the right side and to the nape of the neck. At any given time, patient's pain is still around 6 or 7 which is relieved by the IV narcotics. LABORATORY DATA: Reviewed. White count is 9.1, hemoglobin 11, hematocrit 33, platelet count 270,000 . Chemistries from today reveals a sodium of 135, K of 4.1, chloride of 98, CO2 of 29, BUN of 18, cr eatinine 0.6, random sugar of 123. AST and ALT are within normal limits. Alkaline phosphatase is no rmal. MEDICATIONS: The patient's medications were reviewed. He is on Daliresp 500 mcg daily. He is on Di laudid 2 mg IV q.3 hours p.r.n. and fentanyl patches 150 mcg q.72 hours, Flexeril 10 mg b.i.d., folic acid 1 mg p.o. daily. He is on Lidoderm 2 patches applied to the scapular area. He is on Lovenox 4 0 mcg subQ daily. He is on Lyrica 75 mg p.o. t.i.d. He is on methylprednisolone 8 mg b.i.d., Mucine x 600/30, Mucinex DM 1 tablet b.i.d. Is on ____ cough syrup oral suspension 5 mL q.i.d. He is on ox ycodone immediate release 30 mg p.o. q.4 hours p.r.n. He is on ____, Protonix or pantoprazole 40 mg daily. He is on Pulmicort Respules 0.5 mg inhaled by the nostrils q.12 hours and folic acid 1 mg svitlana ly. He is on oxycodone immediate release 30 mg p.o. q.4 hours. He is on IV fluids at 90 mL an hour normal saline, Tessalon Perles 100 mg t.i.d., Tylenol 650 mg p.o. q.4 hours p.r.n. ASSESSMENT NOTES AND PLAN: The patient is status post chemotherapy day 1. We will continue to watch him for mucositis and ____ counts while he is in the hospital. In the meantime, we are going to saurav Eli, the pain medical doctor, assess him so that we can make further decisions about a reid onal block to alleviate the pain. Meantime, keep increasing the pain medicines and the patches to se e how the pain is relieved. The patient is eating better on his own. His pain is not as severe as i t used to be and I told him that we need to stay our course for him to feel a little bit better. Rou lexx post exam instructions have been given to the patient. We will make sure that he has at least o ral intake in an adequate fashion. Routine post exam instructions have been given to the patient. W e are exploring the possibility of the patient going to long-term rehabilitation or short term rehabi litation, whichever is feasible as the next cycle will be due in about 2 weeks. Lizzie Leary MD cc: [phone] TT: 11/08/2016 17:01:56 Confirmation # [id number] Dictation # [id number]
--- NOTE | 2016-11-08 20:05 | PN ---
DATE: 11/08/2016 REFERRING PHYSICIAN: Dr. Fermin. SUBJECTIVE: The patient out of bed to chair, feels better. Pain is much better, still has some coug h. No sputum production, no nausea, no vomiting, no diarrhea, no leg pain or leg swelling. OBJECTIVE: GENERAL: No acute distress. VITAL SIGNS: Temperature is 98, heart rate is 109, respiratory rate is 20, blood pressure 115/84, pu lse ox 96% on room air. HEENT: Moist mucous membrane. Crowded airway. NECK: Supple. No JVD. LUNGS: Has scattered rhonchi. Overall, fair airflow. HEART: S1, S2. ABDOMEN: Soft, nontender. No organomegaly. EXTREMITIES: There is no edema. NEUROLOGIC: Awake, alert, follows simple commands. MEDICATIONS: He is on Daliresp 500 mcg daily, Dilaudid 2 mg IV q. 3 hours p.r.n., Duragesic patch, Flexeril 10 mg daily, folic acid 1 mg daily, lidocaine patch daily, Lovenox 40 mg daily, Lyrica 75 mg twice a day, Magic mouthwash p.r.n. basis, ____ 8 mg twice a day added, Mucinex 1 tab twice a day, nystatin oral suspension, oxycodone immediate release 30 mg q. 4 hours, Protonix 40 mg daily, Pulmico rt inhaled twice a day, Singulair 10 mg daily, IV fluid normal saline 90 mL per hour, Tessalon perles 100 mg 3 times a day, Tylenol p.r.n. basis. LABORATORY DATA: Shows hemoglobin 11.0, hematocrit 33.4, WBC 9.1, platelet is 270. Sodium 135, pota ssium 4.1, chloride 98, bicarbonate 29, BUN 18, creatinine 0.6, glucose 123, calcium 8.9, AST 27, ALT 48, alkaline phosphatase is 73, albumin is 3.5. IMPRESSION AND PLAN: Unresectable lung cancer, metastatic disease to bone and ____ chronic obstructi ve lung disease, status post trigger point injections, has a left upper extremity venous access, rece ived chemotherapy. Pulmonary point of view ____ pain management, bronchodilator. Gastric prophylaxi s. Deep venous thrombosis prophylaxis. Continue IV fluid. Thank you and will follow with you. Elisabet Pelaez MD cc: [facility] TT: 11/08/2016 20:05:09 Confirmation # [id number] Dictation # [id number] jn
[2016-11-08] MEDS ORDERED: POLYETHYLENE GLYCOL 3350 17 GM/Dose PACKET PO STA (21:38)
[2016-11-09] MEDS: Aluminum Hydroxide/Magnesium 30 ML, DiphenhydrAMINE 75 MG, Lidocaine 2% Viscous 30 ML PO SCH ×5 (00:30→21:11)
[2016-11-09] MEDS: oxyCODONE 30 mg Immediate Release Tab PO SCH ×6 (01:33→21:15)
[2016-11-09] MEDS: HYDROmorphone 2 mg/ml ISec IVP PRN ×6 (01:35→21:18)
[2016-11-09] MEDS: Pantoprazole 40 mg EC Tab PO SCH (07:46)
[2016-11-09] MEDS: Budesonide 0.5 mg/2 ml Inhal Susp UD IH SCH ×2 (07:50→20:02)
[2016-11-09] MEDS: Lidocaine 5% Patch TD SCH (10:08)
[2016-11-09] MEDS: Nystatin 100,000 Units/ml Oral Susp 5 ml UD PO SCH ×4 (10:08→21:15)
[2016-11-09] MEDS: guaiFENesin-DM 600-30 mg ER Tab PO SCH ×2 (10:09→18:16)
[2016-11-09] MEDS: Sodium Chloride 0.9% 1,000 ML IV SCH (13:03)
--- NOTE | 2016-11-09 17:58 | PN ---
DATE: 11/09/2016 REFERRING PHYSICIAN: Dr. Fermin. SUBJECTIVE: He is lying in the bed. Sister is at bedside. Night was unremarkable. No headache, no rhinitis, no nausea, no vomiting, no diarrhea. Trace leg swelling. OBJECTIVE: GENERAL: In no acute distress. VITAL SIGNS: Temperature is 98, heart rate is 110, respiratory rate is 20, blood pressure 97/58, pul se ox 94% on room air. HEENT: Moist mucous membranes. No ulcer or oral thrush noted. NECK: Supple. No JVD. LUNGS: Has decreased breath sounds at the bases. HEART: S1, S2. ABDOMEN: Soft, nontender. No organomegaly. EXTREMITIES: May have trace edema. NEUROLOGIC: Awake, alert, follows simple commands. MEDICATIONS: He is on Colace 100 mg twice a day, Daliresp 500 mcg daily, Dilaudid 2 mg IV q.3 hours p.r.n., Duragesic patch q.72 hours, Flexeril 10 mg twice a day, folic acid 1 mg daily, Lidoderm patch daily, Lovenox 40 mg daily, Lyrica 75 mg 3 times a day, Magic solution for mouth q.4 hours p.r.n., M edrol 8 mg twice a day, Mucinex 600 mg 1 tab twice a day, nystatin oral suspension 5 mL q.i.d., oxyco done immediate release 30 mg q.4 hours, Protonix 40 mg daily, Pulmicort inhaled twice a day, Singulai r 10 mg daily, IV fluid normal saline at 90 mL per hour, Tessalon pearls 100 mg 3 times a day, Tyleno l on a p.r.n. basis. LABORATORY DATA: Reviewed and no new lab is available since yesterday. IMPRESSION AND PLAN: Unresectable lung cancer with metastatic disease to the bones and spine, chroni c obstructive lung disease, status post trigger point injection, has a left upper extremity venous ac cess, which is a PassPort. Pulmonary point of view, doing okay. Continue bronchodilator. Gastric p rophylaxis. SCDs to lower extremities. Aspiration precaution. Follow up electrolytes and CBC in th e morning. Thank you and will follow with you. Mohammad Latanya MD cc: [phone] TT: 11/09/2016 17:57:13 Confirmation # [id number] Dictation # [id number] dn
--- NOTE | 2016-11-09 22:33 | CP.PCM.PN ---
Subjective - Date & Time of Evaluation Date of Evaluation: 11/09/16 Time of Evaluation: 17:00 - Subjective Subjective: Patient's pain continues to be less than optimally controlled. Oxycodone uptritrated to 30mg this morning. at bedside. Regular BM's 12 ROS otherwise negative Objective - Vital Signs/Intake and Output Vital Signs (last 24 hours): Temp Pulse Resp BP Pulse Ox 98.4 F 104 H 20 104/69 95 11/09/16 18:00 11/09/16 18:00 11/09/16 18:00 11/09/16 18:00 11/09/16 18:00 Intake and Output: 11/09/16 11/10/16 18:59 06:59 Intake Total 1080 540 Balance 1080 540 - Medications Medications: Current Medications Acetaminophen (Tylenol 325mg Tab) 650 mg PO Q4 PRN PRN Reason: Pain, Mild (1-3) Benzonatate (Tessalon Perles) 100 mg PO TID [facility] Last Admin: 11/09/16 18:14 Dose: 100 mg Budesonide (Pulmicort Respules) 0.5 mg IH [id number] [facility] Last Admin: 11/09/16 20:02 Dose: Not Given Al Hydrox/Mg Hydrox/Simethicone 30 ml/Diphenhydramine HCl 75 mg/Lidocaine 30 ml 0 ml PO Q4 [facility] Last Admin: 11/09/16 16:55 Dose: 30 ml Cyclobenzaprine HCl (Flexeril) 10 mg PO BID [facility] Last Admin: 11/09/16 18:17 Dose: 10 mg Docusate Sodium (Colace) 100 mg PO BID [facility] Last Admin: 11/09/16 18:13 Dose: 100 mg Enoxaparin Sodium (Lovenox) 40 mg SC DAILY [facility] PRN Reason: Protocol Fentanyl (Duragesic) 1 patch TD Q72H [facility] Last Admin: 11/07/16 12:23 Dose: 1 patch Fentanyl (Duragesic) 1 patch TD Q72H [facility] Last Admin: 11/07/16 12:32 Dose: 1 patch Folic Acid (Folic Acid) 1 mg PO DAILY [facility] Last Admin: 11/09/16 10:09 Dose: 1 mg Guaifenesin/Dextromethorphan (Mucinex-Dm 600-30 Mg) 1 tab PO BID [facility] Last Admin: 11/09/16 18:16 Dose: 1 tab Hydromorphone HCl (Dilaudid) 2 mg IVP Q3H PRN PRN Reason: Pain, severe (8-10) Last Admin: 11/09/16 21:18 Dose: 2 mg Sodium Chloride (Sodium Chloride 0.9%) 1,000 mls @ 90 mls/hr IV .Q11H7M [facility] Last Admin: 11/09/16 13:03 Dose: 90 mls/hr Lidocaine (Lidoderm) 2 ea TD DAILY [facility] Last Admin: 11/09/16 10:08 Dose: 2 ea Methylprednisolone (Medrol) 8 mg PO BID [facility] Stop: 11/11/16 10:01 Last Admin: 11/09/16 18:19 Dose: 8 mg Montelukast Sodium (Singulair) 10 mg PO HS [facility] Last Admin: 11/09/16 21:15 Dose: 10 mg Nystatin (Nystatin Oral Susp) 5 ml PO QID [facility] Last Admin: 11/09/16 21:15 Dose: 5 ml Oxycodone HCl (Oxycodone Immediate Release Tab) 30 mg PO Q4H [facility] Last Admin: 11/09/16 21:15 Dose: 30 mg Pantoprazole Sodium (Protonix Ec Tab) 40 mg PO ACB [facility] Last Admin: 11/09/16 07:46 Dose: 40 mg Pregabalin (Lyrica) 75 mg PO TID [facility] Last Admin: 11/09/16 18:15 Dose: 75 mg Roflumilast (Daliresp) 500 mcg PO DAILY [facility] Last Admin: 11/09/16 10:09 Dose: 500 mcg - Labs Labs: 11/08/16 06:30 11/08/16 06:30 PT 11.3 Seconds (9.9-11.8) 11/03/16 15:45 INR 1.05 (0.93-1.08) 11/03/16 15:45 APTT 37.3 Seconds (23.7-30.8) H 11/03/16 15:45 - Constitutional Appears: Well - Respiratory Exam Respiratory Exam: Clear to Ausculation Bilateral, NORMAL BREATHING PATTERN - Cardiovascular Exam Cardiovascular Exam: REGULAR RHYTHM, +S1, +S2. absent: Murmur - GI/Abdominal Exam GI & Abdominal Exam: Soft, Normal Bowel Sounds. absent: Tenderness - Rectal Exam Rectal Exam: NORMAL INSPECTION Assessment and Plan (1) Lung cancer Status: Acute - Assessment and Plan (Free Text) Assessment: Mr. Kohli edwin 56 y/o male with stage IV NSLC that is directly invading mechanically into the vertebral bodies between T3 and T6 for which he has been having intractible pain and admitted for refractory pain. Agree with increased oxycodone dosing. IF patient requires regular PRN medications he may benefit from uptritration of long acting fentanyl patch. We will continue to follow Jarad Leary MD Oncology Fellow
[2016-11-10] MEDS: oxyCODONE 30 mg Immediate Release Tab PO SCH ×7 (00:40→23:24)
[2016-11-10] MEDS: HYDROmorphone 2 mg/ml ISec IVP PRN ×5 (02:10→23:27)
[2016-11-10] MEDS: Aluminum Hydroxide/Magnesium 30 ML, DiphenhydrAMINE 75 MG, Lidocaine 2% Viscous 30 ML PO SCH ×6 (03:42→21:10)
[2016-11-10 06:32] LABS: HEMATOCRIT 32.4 % (42.0-52.0); MEAN CELL VOLUME 93.6 fL (80.0-105.0); MEAN CORPUSCULAR HEMOGLOBIN 30.9 pg (25.0-35.0); MEAN PLATELET VOLUME 9.4 fl (7.0-11.0); RED CELL DISTRIBUTION WIDTH 14.2 % (11.5-14.5); WHITE BLOOD COUNT 6.5 10^3/ul (4.5-11.0)
[2016-11-10 07:12] LABS: ALB/GLOB RATIO 1.1 (1.1-1.8); ALKALINE PHOSPHATASE 87 U/L (38-133); ALT/SGPT 40 U/L (7-56); AST/SGOT 26 U/L (15-59); BILIRUBIN,TOTAL 0.4 mg/dL (0.2-1.3); BLOOD UREA NITROGEN 18 mg/dL (7-21); CALCIUM 8.4 mg/dL (8.4-10.5); CARBON DIOXIDE 27 mmol/L (21-33); CHLORIDE 96 mmol/L (95-110); GFR AFRICAN-AMERICAN > 60; GLUCOSE,RANDOM 118 mg/dL (70-110); POTASSIUM 3.9 mmol/L (3.6-5.0); SODIUM 132 mmol/L (132-148); TOTAL PROTEIN 6.7 g/dL (5.8-8.3)
--- NOTE | 2016-11-10 07:15 | PN ---
DATE: 11/09/2016 The patient still complains of severe back pain, could not sleep. The patient on oxycodone 30 mg, Du ragesic patch 125 and also getting Dilaudid IV 2 mg every 3 hours. Otherwise, breathing cooper stable. PHYSICAL EXAMINATION: VITAL SIGNS: Temperature 98, heart rate 110, blood pressure 97/58, respiration 19, saturation 94%. HEAD AND NECK: Normal. No JVD, no thyromegaly. CHEST: Clear, good air entry. CARDIAC: First sound, second sound normal. ABDOMEN: Soft, nontender. EXTREMITIES: No edema. NEUROLOGIC: Normal. The patient has tender thoracic spine with restricted movement. LABORATORY DATA: Still pending. IMPRESSION AND PLAN: 1. Severe intractable back pain due to metastatic disease of lung cancer. Continue current medicati on. Will follow up with Dr. Eli for interventional pain management including epidural injections . Continue local patches Lidoderm, Duragesic patch, intravenous Dilaudid and oxycodone 30 every 4 ho urs. 2. Opioid induced constipation. Currently on Relistor p.r.n. plus MiraLax, Dulcolax and follow up o n that. 3. Chronic obstructive pulmonary disease, on steroids p.o., inhaled bronchodilators, Daliresp. Seem s doing okay. Will continue current therapy. 4. Continue gastrointestinal and deep vein thrombosis prophylaxis. General weakness. The patient w as advised to go for rehabilitation, still waiting for response to see which rehabs accepts him. The patient lives by himself, family issues. At this time, continue current therapy for now. Gary Fermin MD cc: [phone] TT: 11/10/2016 07:14:59 Confirmation # [id number] Dictation # [id number]
--- NOTE | 2016-11-10 07:39 | PN ---
DATE: 11/08/2016 The patient clinically stable. Got chemotherapy. The patient lives by himself with this severe intr actable pain. The patient needs evaluated for rehab. We are still looking for rehabilitation for edu chambers. At this time, the patient still complains of back pain, on Dilaudid IV. PHYSICAL EXAMINATION: VITAL SIGNS: On 11/08/2016, the patient has temperature 98.7, heart rate 109, blood pressure 115/84, respirations 20, saturation 96% on room air. HEAD AND NECK: Normal. No JVD, no thyromegaly. CHEST: Clear, good entry, diminished breath sounds. CARDIAC: First sound, second sound normal. ABDOMEN: Soft, nontender. EXTREMITIES: No edema. NEUROLOGIC: Normal. His spine is tender. Especially the thoracic spine is very tender to touch. LABORATORY DATA: 11/08/2016: White count, 9.1, hemoglobin 11, hematocrit 33.4, platelets 270. Chem istry: Sodium 135, potassium 4.1, chloride 98, bicarb 29, BUN 18, creatinine 0.6. Liver function te st is normal. Blood sugar 123. IMPRESSION AND PLAN: 1. Severe intractable back pain. Continue Dilaudid IV, continue oxycodone, Duragesic patch. 2. Lung cancer, stage IV, with poorly differentiated adenocarcinoma, status post radiation therapy. Received chemotherapy. Seems stable now. Next chemo will be in 2-3 weeks as per oncology. 3. Chronic obstructive pulmonary disease. At this time, continue inhaled bronchodilators, continue IV steroids. Will switch him to p.o. steroids. Seems doing stable breathing-cooper. 4. Opioid-induced constipation. Continue current meds, Relistor p.r.n. and follow up clinically. 5. Continue GI and DVT prophylaxis. Continue Lidoderm, Lyrica, Mucinex, oxycodone, Protonix, Singul air, Tessalon, Tylenol and Colace. Gary Fermin MD cc: [phone] TT: 11/10/2016 07:38:50 Confirmation # [id number] Dictation # [id number] mn
[2016-11-10] MEDS: Budesonide 0.5 mg/2 ml Inhal Susp UD IH SCH (07:59)
[2016-11-10] MEDS: Pantoprazole 40 mg EC Tab PO SCH (08:18)
[2016-11-10] MEDS: guaiFENesin-DM 600-30 mg ER Tab PO SCH ×2 (10:07→17:47)
[2016-11-10] MEDS: Nystatin 100,000 Units/ml Oral Susp 5 ml UD PO SCH ×4 (10:09→21:31)
[2016-11-10] MEDS: Lidocaine 5% Patch TD SCH (10:09)
[2016-11-10] MEDS: Sodium Chloride 0.9% 1,000 ML IV SCH ×2 (11:58→22:43)
--- NOTE | 2016-11-10 17:52 | PN ---
DATE: 11/10/2016 REFERRING PHYSICIAN: Dr. Fermin. SUBJECTIVE: He is lying in the bed, head at 45 degrees, feels okay. No headaches, no rhinitis. Rig ht shoulder pain is better. No nausea, no vomiting. Does have constipation. No leg pain or leg swe lling. OBJECTIVE: GENERAL: In no acute distress. VITAL SIGNS: Temp is 98, heart rate is 100, respiratory rate is 18, blood pressure 113/73, pulse ox 96% on room air. HEENT: Moist mucous membranes. Small oral cavity. LUNGS: Fair airflow with a few rhonchi. HEART: S1, S2. ABDOMEN: Soft, nontender. No organomegaly. EXTREMITIES: There is no edema. NEUROLOGIC: Awake, alert, follows simple commands. MEDICATIONS: He is on Colace 100 mg twice a day, Daliresp 500 mcg daily, Dilaudid 2 mg q.3 hours p.r .n., fentanyl is q.72 hours, Duragesic patch q.72 hours, Flexeril 10 mg twice a day, folic acid 1 mg daily, lidocaine 2 ____ daily basis, Lovenox 40 mg daily, Lyrica 100 mg daily, Solu-Medrol is 8 mg q. 12 hours, Mucinex DM 1 tab twice a day, nystatin for affected area, oxycodone immediate release 30 mg q.4 hours, Protonix 40 mg daily, Singulair 10 mg daily, IV fluid normal saline 90 mL per hour, Jessy sarah Perles 3 times a day, Tylenol on a p.r.n. basis. LABORATORY DATA: Shows hemoglobin 10.7, hematocrit 32.4, WBC 6.5, platelet is 260. Sodium 132, pota ssium 3.9, chloride 96, bicarbonate 27, BUN 18, creatinine 0.5, glucose 118, calcium 8.4, AST 26, ALT 40, alkaline phosphatase is 87, albumin is 3.5. IMPRESSION AND PLAN: Unresectable lung cancer with metastatic disease to bones and spine, chronic ob structive lung disease status post trigger point injection, has a the left upper extremity venous acc ess, constipation. Pulmonary point of view, doing okay. Continue bronchodilator and pain management . Gastric prophylaxis and deep venous thrombosis prophylaxis. Sequential compression devices to low er extremities. Fleet enema p.r.n. daily basis for constipation. Thank you and will follow with you. Elisabet Pelaez MD cc: [phone] TT: 11/10/2016 17:51:54 Confirmation # [id number] Dictation # [id number] dn
--- NOTE | 2016-11-10 21:16 | CP.PCM.PN ---
Subjective - Date & Time of Evaluation Date of Evaluation: 11/10/16 Time of Evaluation: 17:00 - Subjective Subjective: Patient continues to have right shoulder and scapular pain. IV pain medications not really as affective per patient. No BM still 12 ROS otherwise negative Objective - Vital Signs/Intake and Output Vital Signs (last 24 hours): Temp Pulse Resp BP Pulse Ox 97.7 F 110 H 16 122/79 99 11/10/16 17:00 11/10/16 17:00 11/10/16 17:00 11/10/16 17:00 11/10/16 17:00 Intake and Output: 11/10/16 11/11/16 18:59 06:59 Intake Total 1080 Balance 1080 - Medications Medications: Current Medications Acetaminophen (Tylenol 325mg Tab) 650 mg PO Q4 PRN PRN Reason: Pain, Mild (1-3) Benzonatate (Tessalon Perles) 100 mg PO TID [facility] Last Admin: 11/10/16 17:48 Dose: 100 mg Budesonide (Pulmicort Respules) 0.5 mg IH [id number] [facility] Last Admin: 11/10/16 07:59 Dose: Not Given Al Hydrox/Mg Hydrox/Simethicone 30 ml/Diphenhydramine HCl 75 mg/Lidocaine 30 ml 0 ml PO Q4 [facility] Last Admin: 11/10/16 16:18 Dose: 15 ml Cyclobenzaprine HCl (Flexeril) 10 mg PO BID [facility] Last Admin: 11/10/16 17:48 Dose: 10 mg Docusate Sodium (Colace) 100 mg PO BID [facility] Last Admin: 11/10/16 17:48 Dose: 100 mg Enoxaparin Sodium (Lovenox) 40 mg SC DAILY [facility] PRN Reason: Protocol Fentanyl (Duragesic) 1 patch TD Q72H [facility] Last Admin: 11/10/16 12:17 Dose: 1 patch Fentanyl (Duragesic) 1 patch TD Q72H [facility] Folic Acid (Folic Acid) 1 mg PO DAILY [facility] Last Admin: 11/10/16 10:09 Dose: 1 mg Guaifenesin/Dextromethorphan (Mucinex-Dm 600-30 Mg) 1 tab PO BID [facility] Last Admin: 11/10/16 17:47 Dose: 1 tab Hydromorphone HCl (Dilaudid) 2 mg IVP Q3H PRN PRN Reason: Pain, moderate (4-7) Sodium Chloride (Sodium Chloride 0.9%) 1,000 mls @ 90 mls/hr IV .[id number] [facility] Last Admin: 11/10/16 11:58 Dose: 90 mls/hr Lidocaine (Lidoderm) 2 ea TD DAILY [facility] Last Admin: 11/10/16 10:09 Dose: 2 ea Methylprednisolone (Medrol) 8 mg PO BID [facility] Stop: 11/11/16 10:01 Last Admin: 11/10/16 17:48 Dose: 8 mg Montelukast Sodium (Singulair) 10 mg PO HS [facility] Last Admin: 11/09/16 21:15 Dose: 10 mg Nystatin (Nystatin Oral Susp) 5 ml PO QID [facility] Last Admin: 11/10/16 17:47 Dose: 5 ml Oxycodone HCl (Oxycodone Immediate Release Tab) 30 mg PO Q4H [facility] Last Admin: 11/10/16 16:18 Dose: 30 mg Pantoprazole Sodium (Protonix Ec Tab) 40 mg PO ACB [facility] Last Admin: 11/10/16 08:18 Dose: 40 mg Pregabalin (Lyrica) 100 mg PO TID [facility] Last Admin: 11/10/16 17:48 Dose: 100 mg Roflumilast (Daliresp) 500 mcg PO DAILY [facility] Last Admin: 11/10/16 10:09 Dose: 500 mcg - Labs Labs: 11/10/16 06:00 11/10/16 06:00 PT 11.3 Seconds (9.9-11.8) 11/03/16 15:45 INR 1.05 (0.93-1.08) 11/03/16 15:45 APTT 37.3 Seconds (23.7-30.8) H 11/03/16 15:45 - Constitutional Appears: Non-toxic - Respiratory Exam Respiratory Exam: Clear to Ausculation Bilateral, NORMAL BREATHING PATTERN - Cardiovascular Exam Cardiovascular Exam: REGULAR RHYTHM, +S1, +S2. absent: Murmur - GI/Abdominal Exam GI & Abdominal Exam: Soft, Normal Bowel Sounds. absent: Tenderness - Extremities Exam Extremities Exam: Full ROM, Normal Capillary Refill, Normal Inspection. absent : Joint Swelling, Pedal Edema Assessment and Plan (1) Lung cancer Status: Acute - Assessment and Plan (Free Text) Assessment: Mr. Kohli edwin 56 y/o male with stage IV NSLC that is directly invading mechanically into the vertebral bodies between T3 and T6 for which he has been having intractable pain and admitted for refractory pain despite incnrease in oxycodone. Will plan on consultation with pain management service regarding possible nerve block. Patient bowel regimen to be optimized and will consider giving enema if no BM later today. We will continue to follow Jarad Leary MD Oncology Fellow
--- NOTE | 2016-11-11 00:21 | PN ---
DATE: 11/10/2016 SUBJECTIVE: The patient still complained of pain, constipation. Pain is severe enough, although he received significant amount of analgesia and narcotics, but still has severe back pain throughout the spine. PHYSICAL EXAMINATION: VITAL SIGNS: Today, temperature 98.2, heart rate 100, blood pressure 116/73, respirations 17, satura ting 96%. HEAD AND NECK: Normal. No JVD, no thyromegaly. CHEST: Clear. Good air entry. CARDIAC: First sound, second sound normal. ABDOMEN: Soft, nontender. EXTREMITIES: No edema. NEUROLOGIC: Very tender thoracic spine to touch and generally weak. LABORATORY DATA: White count 6.5, hemoglobin 10.7, hematocrit 32.4, platelets 260. His chemistry no fernanda for sodium 132, potassium 3.9, chloride 96, bicarb 27, BUN 18, creatinine 0.5, blood sugar 118. Liver function test is normal. IMPRESSION: 1. Severe intractable back pain. Will increase his Duragesic patch to 175 mcg every 72 hours and wi ll increase the Lyrica to 100 mg 3 times a day. Will call Dr. Link for pain management, if he can c ome to the hospital and give him injections. Dr. Eli so busy and could not do it in the hospital . Will see Dr. Link for now. If he does not, then he has to see him in the office and will follow up clinically. 2. Opioid induced constipation. He got Relistor. Will give him Fleet enema. 3. Lung carcinoma, stage IV, poorly differentiated adenocarcinoma, status post chemotherapy. Contin ue radiation therapy. Stable. Continue current management. 4. Chronic obstructive pulmonary disease, anemia. PLAN: Continue current therapy. Gary Fermin MD cc: [phone] TT: 11/11/2016 00:21:04 Confirmation # [id number] Dictation # [id number] dn
[2016-11-11] MEDS: Aluminum Hydroxide/Magnesium 30 ML, DiphenhydrAMINE 75 MG, Lidocaine 2% Viscous 30 ML PO SCH ×7 (00:30→21:47)
[2016-11-11] MEDS: HYDROmorphone 2 mg/ml ISec IVP PRN ×2 (04:37→21:44)
[2016-11-11] MEDS: oxyCODONE 30 mg Immediate Release Tab PO SCH ×5 (04:37→20:34)
[2016-11-11] MEDS: Budesonide 0.5 mg/2 ml Inhal Susp UD IH SCH ×2 (08:10→20:08)
[2016-11-11] MEDS: Pantoprazole 40 mg EC Tab PO SCH (08:25)
[2016-11-11] MEDS: Lidocaine 5% Patch TD SCH (09:32)
[2016-11-11] MEDS: Nystatin 100,000 Units/ml Oral Susp 5 ml UD PO SCH ×4 (09:33→21:44)
[2016-11-11] MEDS: guaiFENesin-DM 600-30 mg ER Tab PO SCH ×2 (09:33→17:19)
[2016-11-11] MEDS ORDERED: Bacitracin Ointment 30 GM TUBE ONE (16:06)
[2016-11-11] MEDS ORDERED: Dexamethasone 4 mg/1 ml ONE ×2 (16:06→16:13)
[2016-11-11] MEDS ORDERED: Lidocaine 1% Inj (20ml) ONE (16:07)
[2016-11-11] MEDS ORDERED: Iohexol 240 (50 ml) ONE (16:07)
[2016-11-11] MEDS ORDERED: Sodium Chloride 0.9% 10 ML IV ONE (16:07)
[2016-11-11] MEDS ORDERED: Sodium Bicarbonate (8.4%) 50 Meq Syringe ONE ×2 (16:07→16:09)
--- NOTE | 2016-11-11 18:57 | RAD ---
PROCEDURE: Fluoroscopy up to 1 hr. HISTORY: CERVICAL SPINE PAIN MANAGEMENT COMPARISON: None TECHNIQUE: Standard protocol for this study/examination. FINDINGS: Total fluoroscopic time (continuous mode) utilized during the procedure: 25 seconds. IMPRESSION: Less than 1 hr fluoroscopic time utilized during performance of the procedure.
--- NOTE | 2016-11-11 20:37 | OP ---
PROCEDURE DATE: 11/11/2016 TYPE OF SURGERY: Cervical interlaminar epidural steroid injection under fluoroscopic guidance. PREOPERATIVE DIAGNOSES: 1. Cervical radiculopathy. 2. Cervical pain. POSTOPERATIVE DIAGNOSES: 1. Cervical radiculopathy. 2. Cervical pain. TYPE OF ANESTHESIA: Local anesthesia only. SURGEON: Gary Eli MD [employer]: None applicable. BLOOD LOSS: None. METHOD OF SURGERY: The region overlying the right T1 lamina was localized and the soft tissues overl susan this structure were infiltrated using 25 gauge 1.5 inch followed by a 25 gauge-3.5 inch needle w ith 1% lidocaine without epinephrine. An 18 gauge 3.5 inch Tuohy needle was inserted through the ane sthetized tract of tissue to the left T1 lamina and was then "walked off" the superior aspect of this lamina into the C7 -T1 epidural space. The epidural space was localized using loss of resistance an d negative aspiration for cerebrospinal fluid or blood. A 3 mL volume of Omnipaque 240 was injected into the epidural space and a normal epidurogram occurred. A single radiograph was obtained to confi rm needle placement (see below). Following this, a 6 mL volume of fluid was injected containing 2 mL of Kenalog (80 mg), 2 mL of 1% lidocaine and 2 mL of normal saline. Cervical Epidurogram and Spot Film: After Omnipaque was injected into the C7-T1 epidural space, a no rmal cervical epidurogram occurred without evidence of subarachnoid or vascular flow. An AP spot jewel m was ordered and obtained and confirmed correct needle tip placement and the normal cervical epiduro gram. Cervical epidural steroid injection C7-T1. It is right T1 lamina going to C7-T1 epidural space. DISPOSITION: The patient to return to the office in 2 weeks for followup. Gary Eli MD cc: [phone] TT: 11/11/2016 20:36:40 ludmila
[2016-11-12] MEDS: Aluminum Hydroxide/Magnesium 30 ML, DiphenhydrAMINE 75 MG, Lidocaine 2% Viscous 30 ML PO SCH ×4 (00:01→18:04)
[2016-11-12] MEDS: HYDROmorphone 2 mg/ml ISec IVP PRN ×5 (02:03→15:30)
--- NOTE | 2016-11-12 02:53 | PN ---
DATE: 11/11/2016 REFERRING PHYSICIAN: Dr. Lambert. SUBJECTIVE: He is lying in the bed, sleepy, arousable. No headache, no rhinitis, no nausea, no vomi ting, no diarrhea. No leg pain or leg swelling. Right shoulder strain is better, has some cough sti ll. OBJECTIVE: GENERAL: No acute distress. VITAL SIGNS: Temperature is 98, heart rate is 105, respiratory rate is 20, blood pressure 106/71, pu lse ox 95% on room air. HEENT: Moist mucous membranes. Crowded airway. NECK: Supple. No JVD. LUNGS: Has scattered rhonchi. HEART: S1, S2. ABDOMEN: Soft, nontender. No organomegaly. EXTREMITIES: There is no edema. NEUROLOGIC: Sleepy, arousable, follows simple command. MEDICATIONS: He is on Colace 100 mg twice a day, Daliresp 500 mcg daily, Dilaudid 2 mg IV q. 3 hours p.r.n., Duragesic patch. He is also on Flexeril 10 mg twice a day, folic acid 1 mg daily, Lidoderm patch daily, Lovenox is at 40 mg daily and Lyrica 100 mg 3 times a day. He is getting Magic solution to the morning before meals, Mucinex DM 1 tab twice a day, nystatin oral suspension q.i.d., do ne, on immediate release 30 mg q. 48 hours, Protonix 40 mg daily, Pulmicort inhaled twice a day, Sing ulair 10 mg daily, IV fluid normal saline 100 mL per hour, mg 3 times a day, Tylenol on a p.r.n. basis. LABORATORY DATA: Shows no new lab is available since yesterday. IMPRESSION AND PLAN: Unresectable lung cancer with metastatic disease to the bone, spine, chronic ob structive lung disease, status post trigger point injections, left upper extremity venous access, con stipation. Pulmonary point of view, doing okay. Continue bronchodilator. Keep head elevated at 45 degrees. Gastric prophylaxis. Pain management. The patient will be seen by Dr. Eli. Elisabet Pelaez MD cc: [phone] TT: 11/12/2016 02:52:22 Confirmation # [id number] Dictation # [id number] mn
[2016-11-12] MEDS: oxyCODONE 30 mg Immediate Release Tab PO SCH ×5 (05:00→18:04)
[2016-11-12] MEDS: Sodium Chloride 0.9% 1,000 ML IV SCH (05:33)
[2016-11-12] MEDS: Budesonide 0.5 mg/2 ml Inhal Susp UD IH SCH (07:53)
[2016-11-12] MEDS: Pantoprazole 40 mg EC Tab PO SCH (08:26)
[2016-11-12 08:59] VITALS: BP 104/69; PULSE 110; RESP 19; TEMP 98.3; O2SAT 96
[2016-11-12] MEDS: Nystatin 100,000 Units/ml Oral Susp 5 ml UD PO SCH ×3 (09:36→18:03)
[2016-11-12] MEDS: Lidocaine 5% Patch TD SCH (09:37)
[2016-11-12] MEDS: guaiFENesin-DM 600-30 mg ER Tab PO SCH ×2 (09:37→18:03)
--- NOTE | 2016-11-12 19:38 | PN ---
DATE: 11/12/2016 REFERRING PHYSICIAN: Dr. Lambert. SUBJECTIVE: The patient is sitting up in bed. His sister is speaking to Dr. Leary. He feels okay . Plan is to discharge him home today. No headache, no rhinitis, mild cough, no chest pain. No oj sea, no vomiting, no diarrhea. No leg pain or leg swelling. OBJECTIVE: GENERAL: In no acute distress. VITAL SIGNS: Temp is 98, heart rate is 110, respiratory rate is 18, blood pressure 104/69, pulse ox is 96% on room air. HEENT: Moist mucous membranes. Crowded airway. NECK: Supple. No JVD. LUNGS: Have a few scattered rhonchi. HEART: S1 and S2. ABDOMEN: Soft, nontender. No organomegaly. EXTREMITIES: There is no edema. NEUROLOGIC: Awake, alert, follows simple commands. MEDICATIONS: He is on Colace 100 mg twice a day, Daliresp 500 mcg daily, Dilaudid 2 mg q. 3 hours p. r.n., Duragesic patch q. 72 hours, Flexeril 10 mg twice a day, folic acid 1 mg daily. He is also get ting heparin 5000 units subQ q. 8 hours and also . Lovenox 40 mg subQ daily, Lidoderm patch to affected area, Lyrica 100 mg 3 times a day, Magic solution for the mouth before meals, nystatin oral 5 mL q.i.d., oxycodone immediate release 30 mg q. 4 hours p.r.n., Protonix 40 mg daily, Singulair 10 mg daily, Tessalon Perles 3 times a day, Tylenol on a p.r.n. basis. LABORATORY DATA: Shows no new lab is available since yesterday. IMPRESSION AND PLAN: Unresectable lung cancer with metastatic disease to the bone and spine, chronic obstructive lung disease, status post trigger point injection left upper extremity deep venous acces s, constipation. Had an epidural injection last night, feels much better. The pain is much better. Breathing is okay. The patient will be discharged home to follow up with Dr. Fermin as well as Dr. Leary for the chemotherapy. Thank you and will follow with you. Elisabet Pelaez MD cc: [phone] TT: 11/12/2016 19:37:38 Confirmation # [id number] Dictation # [id number] mn
--- NOTE | 2016-11-13 00:07 | PN ---
DATE: 11/12/2016 The patient is in room 365, bed 1. SUBJECTIVE: The patient is lying in bed. He is arousable, has been having some degree of pain in th e nip of the neck, status post cervical neck block yesterday done by Dr. Eli and was told by the doctor that it might take another 12 hours before he sees substantial pain relief. The patient denie s any headache, no rhinitis, nausea, vomiting and his cough has become scat. He has not had anymore further hemoptysis. No fevers, no chills. No leg pain or leg swelling. The shoulder discomfort milan ears to be a little bit improved. OBJECTIVE: GENERAL: The patient tells me the pain on a pain scale of 0-10 is down to 7 and 8 from before being 9 and 10. VITAL SIGNS: T-max is 98.4, heart rate is 105, respirations 20, blood pressure 106/71, pulse ox is 9 5% on room air. HEENT: Head is normocephalic, atraumatic. Conjunctivae pale. Sclerae are anicteric. Pupils are eq ually reactive to light and accommodation. Examination of the oropharynx reveals no oropharyngeal le sions. Tongue is moist. NECK: Supple. There is no adenopathy. LUNGS: Reveals scattered wheezes bilaterally. HEART: Reveals S1 and S2 to be normal. No gallop or murmur is heard. ABDOMEN: Soft, nontender. Liver and spleen are not palpable. EXTREMITIES: Reveals no cyanosis, clubbing or edema. NEUROLOGIC: The patient is awake, alert, and oriented, no focal deficit. Examination musculoskeleta l area reveals the patient to have tenderness over the cervical spine extending to the right scapula and extending on to the right arm along the distribution of the triceps muscle. Examination of lower extremities reveals no cyanosis, clubbing or edema. MEDICATIONS: Reviewed. He is on Colace 100 mg twice a day, Daliresp 500 mcg subQ daily, Dilaudid 2 mg IV q. 3 hours p.r.n. He is on Duragesic patch. He is also on mg b.i.d., folic acid 1 mg da sabas, Lidoderm patch daily, Lovenox is at 40 mg subQ daily, Lyrica 100 mg t.i.d. He is getting Magic mouthwash in the morning and before each meal. He is on Mucinex DM 1 tab twice a day. He is on Nyst atin oral suspension 1 teaspoon q.i.d. He is on immediate relief oxycodone 30 mg p.o. q. 4 hours, Pr otonix 40 mg daily. He is on Pulmicort inhaled twice a day, Singulair 10 mg p.o. daily. He is on IV fluids at 100 mL an hour. Tylenol on a p.r.n. basis. LABORATORY DATA: No new labs have been drawn for today. The patient has been otherwise holding hims elf. ASSESSMENT, NOTES AND PLAN: A detailed discussion with the patient then I spoke to the patient's sis erwins and explained to them that the patient has locally advanced nonsmall cell carcinoma of the lung; it may not be curable, but definitely controllable. He is on radiation. The CAT scan during the cond week of radiation shows significant disease reduction in the size of the right upper lobe lung mass. I told the patient and the family that we would have to continue his chemotherapy for a f ew cycles then reassess the patient in 2-3 months to make sure which direction we are proceeding as _ ____ the cancer is concerned. For now, will probably continue with Carbo/Alimta and had a drug like Keytruda to the regimen given the fact that he has locally advanced disease. We will discuss with sony mullins involved in the care of the patient before making further decisions as far as the timing of t he chemotherapy and what drug needs to be given. I have spoken to Dr. Rich also at great length, wh o is the ID specialist, to get his input as well. Lizzie Leary MD cc: [phone] TT: 11/13/2016 00:06:05 Confirmation # [id number] Dictation # [id number] mn
--- NOTE | 2016-11-13 15:05 | DS ---
DATE OF DISCHARGE: 11/12/2016 HISTORY OF PRESENT ILLNESS: The patient was a 56-year-old male status post epidural injection for hi s thoracic spine mets with severe intractable back pain. The patient seems stable on current pain ma nagement, current pain meds. Will discharge the patient to be followed as outpatient. The patient a lso had a Port-A-Cath. Had a left arm IV access by Dr. Matthew Booth. Seems stable and he received ep idural injections. Seems to be doing well. PLAN: We will discharge the patient home and follow up as outpatient. He is currently going to live with his sister. She will assist him. PHYSICAL EXAMINATION 11/12/2016: VITAL SIGNS: Temperature 98.3, heart rate 110, blood pressure 104/69, respiration 19, saturation 96% . HEAD AND NECK: Normal. No JVD, no thyromegaly. CHEST: Clear, good entry. CARDIAC: First and second sounds are normal. ABDOMEN: Soft, nontender. EXTREMITIES: No edema. NEUROLOGIC: General weakness, thoracic spine extremity tender. LABORATORY DATA: Last lab; white count 6.5, hemoglobin 10.7, hematocrit 32.4, platelets 260. Chemis try: Sodium 132, potassium 3.9, chloride 96, bicarbonate 27, BUN 18, creatinine 0.5. DISCHARGE DIAGNOSES: 1. Severe intractable back pain. 2. Lung cancer, adenocarcinoma stage IV with spine metastases, status post radiation therapy and nicole motherapy. 3. Chronic obstructive pulmonary disease. 4. Opioid induced constipation. PLAN: Discharge home. All prescriptions sent to [facility]. Case has been discussed with the patient and he wants his sister to be informed of all his information as by his request. Wi ll continue followup as outpatient. Gary Fermin MD cc: [phone] TT: 11/13/2016 15:04:29 ludmila
--- NOTE | 2016-11-13 16:06 | PN ---
DATE: 11/11/2016 The patient is status post epidural injection. Still complains of pain, but otherwise clinically no changes. PHYSICAL EXAMINATION. VITAL SIGNS: Temperature 98.8, heart rate 105, blood pressure 106/71, respirations 17, saturation 95 %. HEAD AND NECK: Normal. No JVD, no thyromegaly. CHEST: Clear, good air entry. CARDIAC: First sound, second sound normal. ABDOMEN: Soft, nontender. EXTREMITIES: No edema. NEUROLOGIC: Normal except general weakness. IMPRESSION AND PLAN: 1. Severe intractable back pain, thoracic spine metastasis, status post epidural injection by Dr. Real bartlett. Seems stable. Continue current pain management for now: Dilaudid IV every 3 hours 2 mg plus oxycodone 30 mg every 4 hours in addition to his Duragesic patch 175 mcg. 2. Opioid-induced constipation. Continue Relistor. Continue MiraLax, Dulcolax, Colace. Will follo w up clinically. 3. Chronic obstructive lung disease, lung cancer, poorly differentiated adenocarcinoma. Will contin ue current therapy. The patient received 1 dose of chemotherapy. He will follow up with Dr. Leary as outpatient. 4. Thoracic spine metastasis, status post radiation therapy and is status post epidural injections. The patient seems stable. Will discharge the patient tomorrow to be followed up as outpatient by Dr Luma Leary. Gary Fermin MD cc: [phone] TT: 11/13/2016 16:06:02 Confirmation # [id number] Dictation # [id number]
== END 2016-11-12 18:30 | disposition home or self-care (01) | DRG 543 ==
LOC: ED 15:01 → ERH 17:10 → 3RNO 19:01 → OBSVTOIN 11-05 08:13
PROVIDERS: ADMIT Internal Medicine; ATTEND Internal Medicine
PROC: 0JHF3XZ Insertion of Tunneled Vascular Access Device into Left Upper Arm Subcutaneous Tissue and Fascia, Percutaneous Approach (ICD-10-PCS; 2016-11-05)
PROC: B54NZZA Ultrasonography of Left Upper Extremity Veins, Guidance (ICD-10-PCS; 2016-11-05)
PROC: B51NZZA Fluoroscopy of Left Upper Extremity Veins, Guidance (ICD-10-PCS; 2016-11-05)
PROC: 3E03305 Introduction of Other Antineoplastic into Peripheral Vein, Percutaneous Approach (ICD-10-PCS; 2016-11-07)
PROC: 3E0S3BZ Introduction of Anesthetic Agent into Epidural Space, Percutaneous Approach (ICD-10-PCS; 2016-11-11)
PROC: BR10ZZZ Fluoroscopy of Cervical Spine (ICD-10-PCS; 2016-11-11)
PROC: 3E0S33Z Introduction of Anti-inflammatory into Epidural Space, Percutaneous Approach (ICD-10-PCS; principal; 2016-11-11 15:00)
DX: C79.51 Secondary malignant neoplasm of bone (principal); C34.11 Malignant neoplasm of upper lobe, right bronchus or lung; D89.9 Disorder involving the immune mechanism, unspecified; C50.929 Malignant neoplasm of unspecified site of unspecified male breast; J44.9 Chronic obstructive pulmonary disease, unspecified; D64.9 Anemia, unspecified; R13.10 Dysphagia, unspecified; K12.1 Other forms of stomatitis; F41.9 Anxiety disorder, unspecified; G89.3 Neoplasm related pain (acute) (chronic); K59.03 Drug induced constipation; M47.22 Other spondylosis with radiculopathy, cervical region; M79.7 Fibromyalgia; S46.911A Strain of unspecified muscle, fascia and tendon at shoulder and upper arm level, right arm, initial encounter; T40.2X5A Adverse effect of other opioids, initial encounter; Z80.3 Family history of malignant neoplasm of breast; Z82.49 Family history of ischemic heart disease and other diseases of the circulatory system; Z92.3 Personal history of irradiation; F17.210 Nicotine dependence, cigarettes, uncomplicated; Z88.0 Allergy status to penicillin; Z87.892 Personal history of anaphylaxis

== ENCOUNTER 2016-11-25 18:24 | Inpatient (IN) | payer MEDICARE, MEDICAID, OTHER ==
[2016-11-25 18:45] VITALS: BMI 18.1
--- NOTE | 2016-11-25 19:51 | ED PDOC ---
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 Pain is described as a burning sensation. Patient notes minimal relief with pain medications. He denies any fever, chills, chest pain, worsening shortness of breath, or other complaints at this time. Family translating as per patient's request. Patient refusing official auto hiker. PMD: Dr. Fermin Oncologist: Dr. Leary Past Medical History - Provider Review Nursing Documentation Reviewed: Yes - Infectious Disease Hx of Infectious Diseases: None - Cardiac Hx Cardiac Disorders: No - Pulmonary Hx Respiratory Disorders: Yes Other/Comment: Stage 4 R sided lung cancer - Neurological Hx Neurological Disorder: No Hx Alzheimer's Disease: No - HEENT Hx HEENT Disorder: No - Renal Hx Renal Disorder: No - Endocrine/Metabolic Hx Endocrine Disorders: No - Hematological/Oncological Hx Blood Disorders: No Hx Cancer: Yes (lung) - Integumentary Hx Dermatological Disorder: No - Musculoskeletal/Rheumatological Hx Falls: No - Gastrointestinal Hx Gastrointestinal Disorders: No - Genitourinary/Gynecological Hx Reproductive Disorders: No - Psychiatric Hx Psychophysiologic Disorder: No Hx Substance Use: No - Surgical History Hx Musculoskeletal Surgery: Yes (plate placed in back) Other/Comment: sx to right shoulder and neck. L upper arm port - Anesthesia Hx Anesthesia: Yes Hx Anesthesia Reactions: No Hx Malignant Hyperthermia: No Family/Social History - Physician Review Nursing Documentation Reviewed: Yes Family/Social History: Unknown Family HX Smoking Status: Former Smoker Hx Alcohol Use: No Hx Substance Use: No Allergies/Home Meds Allergies/Adverse Reactions: Allergies Penicillins Allergy (Verified 11/25/16 18:46) ANAPHYLAXIS Home Medications: Home Meds Medication Instructions Recorded Confirmed oxyCODONE [oxyCODONE Immediate 30 mg PO Q6 11/03/16 11/25/16 Release Tab] tiZANidine [Zanaflex] 4 mg PO Q6 11/03/16 11/25/16 Physical Exam - Physical Exam Narrative Physical Exam (Text): - Review of Systems Constitutional: Normal. absent: Fatigue, Weight Change, Fevers Eyes: Normal ENT: Normal Respiratory: Normal absent: SOB, Cough, Sputum Cardiovascular: Normal absent: Chest pain, Palpitations, Syncope Gastrointestinal: Normal absent: Abdominal pain, Diarrhea, Nausea, Vomiting Genitourinary: Normal. absent: Dysuria, Frequency, Hematuria Musculoskeletal: right neck pain radiating to the right upper extremity. absent : Arthralgias, Back Pain Neurological: Normal absent: Focal Weakness Endocrine: Normal Hemo/Lymphatic: Normal Psychiatric: Normal - Physical exam Patient appears age appropriate, speaking full sentences without difficulty. - Systems Exam Head: Present: Atraumatic, Normocephalic Pupils: Present: PERRL Extraocular Muscles: Present: EOMI Conjunctiva: Present: Normal Mouth: Present: Moist Mucous Membranes Neck: Present: Normal Range of Motion. No: MIDLINE TENDERNESS, Paraspinal Tenderness Respiratory/Chest: Present: Clear to Auscultation, Good Air Exchange. No: Respiratory Distress, Accessory Muscle Use, Tachypneic Cardiovascular: Present: Regular Rate and Rhythm, Normal S1, S2, Peripheral Pulses Present. No: Murmurs Abdomen: Present: Normal Bowel Sounds, No: Tenderness, Peritoneal Signs, Rebound, Guarding, Distention Back: Present: Normal Inspection. No: Midline Tenderness, Paraspinal Tenderness Upper Extremity: Present: Normal pulses to the bilateral upper extremities. Warm to the touch. No neurovascular deficits. No: Cyanosis, Edema Lower Extremity: Present: Normal Inspection. No: Edema Neurological: Present: GCS=15, Speech Normal, cranial nerves II through XII fully intact with no cerebellar abnormality, neuro-sensory fully intact. No focal neurological deficits. Skin: Present: Warm, Dry, Normal Color. No: Rashes Lymphatic: Present: OX3, NI, NC Psychiatric: Present: Alert, Oriented x 3, Normal Insight, Normal Concentration Vital Signs Reviewed: Yes Vital Signs Temp Pulse Resp BP Pulse Ox 11/25/16 21:54 77 16 155/108 H 99 11/25/16 18:44 99.2 F 86 19 98/68 L 92 L Temperature: Afebrile Blood Pressure: Hypotensive Pulse: Regular Respiratory Rate: Normal Appearance: Positive for: Well-Appearing, Non-Toxic, Comfortable Pain Distress: None Mental Status: Positive for: Alert and Oriented X 3 Medical Decision Making ED Course and Treatment: 11/25/16 19:21 Impression: A 56 year old male with acute on chronic neck pain. Physical examination reveals no acute findings. Differential Diagnosis include but are not limited to: neuropathy vs. metastasis Plan: -- Cervical Spine CT -- Labs -- Morphine -- Reassess and disposition Progress Notes: 11/25/16 21:22 On reevaluation, the patient is now complaining of chest discomfort radiating to the back. EKG and troponin ordered. EKG shows NSR at [address]-segment elevations, normal intervals. Interpreted by me. Due to patient history of Lung CA and risk for PE a Angio Chest CT ordered. 11/25/16 23:[address] W/O CONTRAST: Creator : RANDI DENISE FINDINGS: Vertebrae: Partial straightening of the cervical lordosis. There is no prevertebral soft tissue swelling. There are degenerative changes at multiple levels. No acute abnormalities are seen C1-C6. C1-C6 bodies and posterior elements are intact. There is anterior fusion C5/C6. There is anterior plate with screws. There is a cage in the C5-6 disc space. C1 and C2 are unremarkable. There is a small lytic defect in the body of C3 on the left. There are degenerative changes greatest involving the inferior endplate of C4. There is marked narrowing of the C4/C5 disc space. There is mild narrowing of the C6-6/C7 disc space. There is a small lucent lesion in the posterior aspect of the C7 vertebral body. There is partial destruction of the right lamina, pedicle and spinous process at C7. There is infiltration of the posterior left lamina of C7. There is pathologic fracture in the base of the spinous process. There is much more extensive destruction of the right lamina pedicle and spinous process at T1. There is partial destruction of the T1 vertebral body and right first rib. There is a soft tissue mass in the spinal canal at the T1 level. There is destruction of the right posterior aspect of the T2 vertebral body, T2 lamina and pedicle on the right. There is partial destruction of the T2 spinous process. There is partial destruction of the right second rib. There is a soft tissue mass invading the spinal canal. Discs/spinal canal/neural foramina: See above. Soft tissues: See above. Thyroid: Thyroid is unremarkable Lung apices: There is a right upper lobe mass invading the posterior mediastinum and paraspinous soft tissues. There is extension into the C7, T1 and T2 vertebral bodies and posterior elements. Partially calcified right apical masses. There are emphysematous changes at the lung apices. Tubes, lines and devices: Portion of a central line is included on the images. Other findings: Airway is unremarkable IMPRESSION: Right apical mass invading the adjacent paraspinous soft tissues, C7, T1 and T2 vertebral bodies and posterior elements, similar findings were seen on the prior study; soft tissue mass extending into the bony canal less well demonstrated than on the prior study; emphysema 11/25/16 23:06 CT Angiography Chest With Intravenous Contrast: Creator : RANDI DENISE FINDINGS: Artifacts: Motion artifact degrades image quality. Heart, aorta and Pulmonary arteries: Heart size is normal. There is no pericardial effusion. Aorta is normal in caliber. There are no central pulmonary emboli. Allowing for patient motion, there are no peripheral emboli Lungs and pleural spaces: Trachea and main bronchi are patent. There is scarring at the lung apices. There is a medial right upper lobe mass which invades the pleural space and extends into adjacent C7, T1 and T2 vertebral bodies and posterior elements. There is partial destruction of the right C7 transverse process, right first, second and third ribs. There is extension into the bony spinal canal. There are emphysematous changes bilaterally. There is left apical pleural parenchymal scarring. There is a partially calcified 3 x 1.2 cm spiculated right upper lobe mass which extends to the pleural surface anteromedially. There calcified granulomas in the right upper lobe. There is associated pleural thickening. There is patchy right upper lobe airspace disease. There is right upper lobe volume loss. There is dependent atelectasis in the right upper lobe. There is a 1.7 x 1.2 x 14 cm spiculated left upper lobe nodular opacity. There is patchy airspace disease in the lingula. There is atelectasis/scarring at both lung bases. There are no effusions. Mediastinum: There is right hilar adenopathy. Streak limits evaluation of the middle mediastinum. There are small calcified mediastinal nodes. The esophagus is unremarkable. There is a small hiatal hernia. Bones/joints: Bony structures partial destruction of right first, second and third ribs. There is partial destruction of the right C7 transverse process. Soft tissues: unremarkable Upper abdomen: Streak and motion limited evaluation of the upper abdomen. There is a left adrenal nodule Tubes, lines and devices: There is a left PICC line with the tip in the right atrium. IMPRESSION: Limited by patient motion, no aortic aneurysm or pulmonary embolus; medial right upper lobe mass invading the chest wall and spine as described above, similar findings described in prior report; paraseptal emphysema 11/25/16 23:37 dw Amanda Cohn and Maryann, accepted obs to tele to hospitalist service - Lab Interpretations Lab Results: 11/25/16 20:00 11/25/16 20:00 Lab Results 11/25/16 20:00: Lactate Dehydrogenase 454, Total Creatine Kinase 42, Troponin I < 0.01 11/25/16 20:00: Sodium 133, Potassium 3.6, Chloride 101, Carbon Dioxide 24, Anion Gap 12, BUN 11, Creatinine 0.5, Est GFR ( Amer) > 60, Est GFR (Non- Af Amer) > 60, Random Glucose 109, Calcium 8.7, Total Bilirubin 0.3, AST 21, ALT 27, Alkaline Phosphatase 75, Total Protein 6.6, Albumin 3.3, Globulin 3.3, Albumin/Globulin Ratio 1.0 L 11/25/16 20:00: WBC 3.5 L D, RBC 3.07 L, Hgb 9.4 L, Hct 28.1 L, MCV 91.5, MCH 30.6, MCHC 33.5, RDW 14.5, Plt Count 338, MPV 9.3, Gran % 51.1, Lymph % (Auto) 34.2, [place] % (Auto) 14.1 H, Eos % (Auto) 0.3 L, Baso % (Auto) 0.3, Gran # 1.81, Lymph # 1.2, [place] # 0.5, Eos # 0.0, Baso # 0.01 I have reviewed the lab results: Yes - RAD Interpretation Radiology Orders: 11/25/16 19:30 CERVICAL SPINE W/O CONTRAST [CT] Stat 11/25/16 21:12 ANGIO CHEST PE PROTOCOL [CT] Stat - Medication Orders Current Medication Orders: Discontinued Medications Hydromorphone HCl (Dilaudid) 1 mg IVP STAT STA Stop: 11/25/16 22:36 Last Admin: 11/25/16 22:44 Dose: 1 mg Sodium Chloride (Sodium Chloride 0.9%) 1,000 mls @ 1,000 mls/hr IV .Q1H STA Stop: 11/25/16 21:23 Last Admin: 11/25/16 20:31 Dose: 1,000 mls/hr Iohexol (Omnipaque 350 100 Ml) Confirm Administered Dose 350 mg .ROUTE .STK-MED ONE Stop: 11/25/16 22:01 Morphine Sulfate (Morphine) 6 mg IVP STAT STA Stop: 11/25/16 19:30 Last Admin: 11/25/16 19:59 Dose: 6 mg - Scribe Statement The provider has reviewed the documentation as recorded by the Yesy Reza Provider Elhamibe Attestation: All medical record entries made by the Scribe were at my direction and personally dictated by me. I have reviewed the chart and agree that the record accurately reflects my personal performance of the history, physical exam, medical decision making, and the department course for this patient. I have also personally directed, reviewed, and agree with the discharge instructions and disposition. Disposition/Present on Arrival - Present on Arrival Any Indicators Present on Arrival: No History of DVT/PE: No History of Uncontrolled Diabetes: No Urinary Catheter: No History of Decub. Ulcer: No History Surgical Site Infection Following: None - Disposition Have Diagnosis and Disposition been Completed?: Yes Diagnosis: Chest pain Disposition: HOSPITALIZED Disposition Time: 23:38 Patient Plan: Observation Condition: FAIR Discharge Instructions (ExitCare): Chest Pain (ED) Referrals: Gary Fermin MD [Primary Care Provider] - Follow up with primary
[2016-11-25 20:04] LABS: ADD MANUAL DIFF? NO
[2016-11-25 20:18] LABS: ALKALINE PHOSPHATASE 75 U/L (38-133); ALT/SGPT 27 U/L (7-56); AST/SGOT 21 U/L (15-59); BILIRUBIN,TOTAL 0.3 mg/dL (0.2-1.3); BLOOD UREA NITROGEN 11 mg/dL (7-21); CALCIUM 8.7 mg/dL (8.4-10.5); CARBON DIOXIDE 24 mmol/L (21-33); CHLORIDE 101 mmol/L (98-107); GFR AFRICAN-AMERICAN > 60; GLUCOSE,RANDOM 109 mg/dL (70-110); POTASSIUM 3.6 mmol/L (3.6-5.0); SODIUM 133 mmol/L (132-148); TOTAL PROTEIN 6.6 g/dL (5.8-8.3)
[2016-11-25 20:19] LABS: BASO # 0.01 K/mm3 (0.0-2.0); BASO % 0.3 % (0.0-3.0); EOS % 0.3 % (1.5-5.0); GRAN # 1.81 (1.4-6.5); GRAN % 51.1 % (50.0-68.0); HEMATOCRIT 28.1 % (42.0-52.0); LYMPH # 1.2 (1.2-3.4); LYMPH % 34.2 % (22.0-35.0); MEAN CELL VOLUME 91.5 fL (80.0-105.0); MEAN CORPUSCULAR HEMOGLOBIN 30.6 pg (25.0-35.0); MEAN CORPUSCULAR HGB CONC 33.5 g/dl (31.0-37.0); MEAN PLATELET VOLUME 9.3 fl (7.0-11.0); MONO # 0.5 (0.1-0.6); MONO % 14.1 % (1.0-6.0); PLATELET COUNT 338 10^3/uL (120.0-450.0); RED CELL DISTRIBUTION WIDTH 14.5 % (11.5-14.5); WHITE BLOOD COUNT 3.5 10^3/ul (4.5-11.0)
[2016-11-25] MEDS ORDERED: Sodium Chloride 0.9% 1,000 ML IV STA (20:24)
--- NOTE | 2016-11-25 21:58 | CT ---
EXAM: CT Cervical Spine Without Intravenous Contrast CLINICAL HISTORY: 56 years old, male; Pain; Neck pain; Patient HX: Neck pain. HX lung ca TECHNIQUE: Axial computed tomography images of the cervical spine without intravenous contrast. This CT exam was performed using one or more of the following dose reduction techniques: automated exposure control, adjustment of the mA and/or kV according to patient size, and/or use of iterative reconstruction technique. Coronal and sagittal reformatted images were created and reviewed. EXAM DATE/TIME: 11/25/2016 7:30 PM COMPARISON: CT - CERVICAL SPINE W/O CONTRAST 10/16/2016 1:11:01 PM FINDINGS: Vertebrae: Partial straightening of the cervical lordosis. There is no prevertebral soft tissue swelling. There are degenerative changes at multiple levels. No acute abnormalities are seen C1-C6. C1-C6 bodies and posterior elements are intact. There is anterior fusion C5/C6. There is anterior plate with screws. There is a cage in the C5-6 disc space. C1 and C2 are unremarkable. There is a small lytic defect in the body of C3 on the left. There are degenerative changes greatest involving the inferior endplate of C4. There is marked narrowing of the C4/C5 disc space. There is mild narrowing of the C6-6/C7 disc space. There is a small lucent lesion in the posterior aspect of the C7 vertebral body. There is partial destruction of the right lamina, pedicle and spinous process at C7. There is infiltration of the posterior left lamina of C7. There is pathologic fracture in the base of the spinous process. There is much more extensive destruction of the right lamina pedicle and spinous process at T1. There is partial destruction of the T1 vertebral body and right first rib. There is a soft tissue mass in the spinal canal at the T1 level. There is destruction of the right posterior aspect of the T2 vertebral body, T2 lamina and pedicle on the right. There is partial destruction of the T2 spinous process. There is partial destruction of the right second rib. There is a soft tissue mass invading the spinal canal. Discs/spinal canal/neural foramina: See above. Soft tissues: See above. Thyroid: Thyroid is unremarkable Lung apices: There is a right upper lobe mass invading the posterior mediastinum and paraspinous soft tissues. There is extension into the C7, T1 and T2 vertebral bodies and posterior elements. Partially calcified right apical masses. There are emphysematous changes at the lung apices. Tubes, lines and devices: Portion of a central line is included on the images. Other findings: Airway is unremarkable IMPRESSION: Right apical mass invading the adjacent paraspinous soft tissues, C7, T1 and T2 vertebral bodies and posterior elements, similar findings were seen on the prior study; soft tissue mass extending into the bony canal less well demonstrated than on the prior study; emphysema Additional findings as described above.
[2016-11-25] MEDS ORDERED: Iohexol 350 MG/100 ML VIAL ONE (22:00)
[2016-11-25 22:06] LABS: TROPONIN I < 0.01 ng/mL
[2016-11-25] MEDS ORDERED: HYDROmorphone 1 mg/ml ISec IVP STA (22:35)
--- NOTE | 2016-11-25 22:53 | CT ---
EXAM: CT Angiography Chest With Intravenous Contrast CLINICAL HISTORY: 56 years old, male; Signs and symptoms; Shortness of breath; Patient HX: HX lung ca; Additional info: R/O pe TECHNIQUE: Axial computed tomographic angiography images of the chest with intravenous contrast using pulmonary embolism protocol. This CT exam was performed using one or more of the following dose reduction techniques: automated exposure control, adjustment of the mA and/or kV according to patient size, and/or use of iterative reconstruction technique. MIP reconstructed images were created and reviewed. Coronal and sagittal reformatted images were created and reviewed. CONTRAST: 50 mL of OMNI administered intravenously. EXAM DATE/TIME: 11/25/2016 9:12 PM COMPARISON: Prior images are not available for review. FINDINGS: Artifacts: Motion artifact degrades image quality. Heart, aorta and Pulmonary arteries: Heart size is normal. There is no pericardial effusion. Aorta is normal in caliber. There are no central pulmonary emboli. Allowing for patient motion, there are no peripheral emboli Lungs and pleural spaces: Trachea and main bronchi are patent. There is scarring at the lung apices. There is a medial right upper lobe mass which invades the pleural space and extends into adjacent C7, T1 and T2 vertebral bodies and posterior elements. There is partial destruction of the right C7 transverse process, right first, second and third ribs. There is extension into the bony spinal canal. There are emphysematous changes bilaterally. There is left apical pleural parenchymal scarring. There is a partially calcified 3 x 1.2 cm spiculated right upper lobe mass which extends to the pleural surface anteromedially. There calcified granulomas in the right upper lobe. There is associated pleural thickening. There is patchy right upper lobe airspace disease. There is right upper lobe volume loss. There is dependent atelectasis in the right upper lobe. There is a 1.7 x 1.2 x 14 cm spiculated left upper lobe nodular opacity. There is patchy airspace disease in the lingula. There is atelectasis/scarring at both lung bases. There are no effusions. Mediastinum: There is right hilar adenopathy. Streak limits evaluation of the middle mediastinum. There are small calcified mediastinal nodes. The esophagus is unremarkable. There is a small hiatal hernia. Bones/joints: Bony structures partial destruction of right first, second and third ribs. There is partial destruction of the right C7 transverse process. Soft tissues: unremarkable Upper abdomen: Streak and motion limited evaluation of the upper abdomen. There is a left adrenal nodule Tubes, lines and devices: There is a left PICC line with the tip in the right atrium. IMPRESSION: Limited by patient motion, no aortic aneurysm or pulmonary embolus; medial right upper lobe mass invading the chest wall and spine as described above, similar findings described in prior report; paraseptal emphysema Additional findings as described above.
[2016-11-26] MEDS: Morphine 2 mg/ml ISec IVP STA ×2 (00:06→03:59)
[2016-11-26] MEDS ORDERED: Bisacodyl 5mg EC Tab PO PRN (00:37)
[2016-11-26] MEDS ORDERED: Albuterol 0.083% Inhal Sol (2.5 mg/3 mL) UD IH PRN (00:39)
--- NOTE | 2016-11-26 00:45 | CP.PCM.HP ---
Addendum entered and electronically signed by Jonah Gaffney DO 11/26/16 02:41: error made in entry during HPI; this patients name is shana Landry Original Note: <Jonah Gaffney - Last Filed: 11/26/16 01:41> History of Present Illness - History of Present Illness History of Present Illness: CC: Intractable Pain PMD: Dr. Fermin Heme Onc: Dr. Leary Mr. 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 He has been admitted multiple times in the past few months for the pain related to these metastases. Patient has been to see dip painter and states that his pain is still not under control and it keeps him up at night and is making him depressed. He denies any SI/AV hallucinations. States he wants all measures to be taken care of including chest compressions and intubation which is understandable given his extremely young age. When asked about his prognosis from his current cancer he believes that he will be cured at some point. He currently denies any fevers/chills, FORMAN, CP, SOB, abdominal pain, N/V/D, dysuria/freq/urg, or lower extremity pain/ swelling. Is complaining of upper extremity pain, numbess/tingling that is unchanged from all previous admissions. Admits to being constipated, and going to the bathroom 3 days ago which is normal for him but he feels extremely constipated. Patient was also unaware that pain meds can cause constipation. PMHx: as stated above Allergies: Penicillin; anaphylaxis Soc Hx: Former heavy smoker, lives at home, sister is best main contact Surgeries: Port put in left arm recently Meds: Please refer to MAR Present on Admission - Present on Admission Any Indicators Present on Admission: No History of DVT/PE: No History of Uncontrolled Diabetes: No Urinary Catheter: No Decubitus Ulcer Present: No Past Patient History - Infectious Disease Hx of Infectious Diseases: None - Past Social History Smoking Status: Former Smoker - CARDIAC Hx Cardiac Disorders: No - PULMONARY Hx Respiratory Disorders: Yes Other/Comment: Stage 4 R sided lung cancer - NEUROLOGICAL Hx Neurological Disorder: No Hx Alzheimer's Disease: No - HEENT Hx HEENT Problems: No - RENAL Hx Chronic Kidney Disease: No - ENDOCRINE/METABOLIC Hx Endocrine Disorders: No - HEMATOLOGICAL/ONCOLOGICAL Hx Blood Disorders: No Hx Cancer: Yes (lung) - INTEGUMENTARY Hx Dermatological Problems: No - MUSCULOSKELETAL/RHEUMATOLOGICAL Hx Falls: No - GASTROINTESTINAL Hx Gastrointestinal Disorders: No - GENITOURINARY/GYNECOLOGICAL Hx Reproductive Disorders: No - PSYCHIATRIC Hx Psychophysiologic Disorder: No Hx Substance Use: No - SURGICAL HISTORY Hx Musculoskeletal Surgery: Yes (plate placed in back) Other/Comment: sx to right shoulder and neck. L upper arm port - ANESTHESIA Hx Anesthesia: Yes Hx Anesthesia Reactions: No Hx Malignant Hyperthermia: No Meds Allergies/Adverse Reactions: Allergies Allergy/AdvReac Type Severity Reaction Status Date / Time Penicillins Allergy ANAPHYLAXIS Verified 11/25/16 18:46 Physical Exam - Constitutional Additional comments: Chronically ill, cachetic male responding appropriately to questions - Head Exam Head Exam: ATRAUMATIC - Eye Exam Eye Exam: EOMI - ENT Exam ENT Exam: Mucous Membranes Dry - Neck Exam Neck exam: Positive for: Full Rom. Negative for: Lymphadenopathy - Respiratory Exam Respiratory Exam: Wheezes, NORMAL BREATHING PATTERN. absent: Clear to Auscultation Bilateral, Respiratory Distress Additional comments: A/P diameter increased - Cardiovascular Exam Cardiovascular Exam: REGULAR RHYTHM - GI/Abdominal Exam GI & Abdominal Exam: Normal Bowel Sounds, Soft. absent: Organomegaly, Rebound, Rigid, Tenderness - Rectal Exam Rectal Exam: Deferred - Extremities Exam Extremities exam: Positive for: full ROM, normal inspection. Negative for: calf tenderness - Back Exam Back exam: absent: CVA tenderness (L), CVA tenderness (R) - Neurological Exam Neurological exam: Alert, Oriented x3 - Psychiatric Exam Psychiatric exam: Normal Affect - Skin Skin Exam: Warm Results - Vital Signs Recent Vital Signs: Last Vital Signs Temp 99.2 F 11/25/16 18:44 Pulse 75 11/25/16 23:45 Resp 17 11/25/16 23:45 BP 106/54 L 11/25/16 23:45 Pulse Ox 100 11/25/16 23:45 - Labs Result Diagrams: 11/25/16 20:00 11/25/16 20:00 Assessment & Plan - Assessment and Plan (Free Text) Assessment: 56yo M admitted for intractable pain 2/2 to metastases to spine Intractable Pain 2/2 to Stage 4 Cancer -Fentanyl patch TD Q72H 50mcg -oxycodone 30mg Q6H PO immediate release -Morphine 2mg IV Q4H -Lidocaine Patch -Ibuprofen -Decadron for bone mets daily -Constipation 2/2 to chronic opiod use -Aletha Batista Consult for POLST/Goals of Care; patient wishes to have sister at meeting -Dr. Leary on consult as well -Trend Troponins; initial negative -Telemtry remote COPD -Albuterol PRN for SOB Depression/Sleep Disorder -Remeron 15mg HS Anorexia 2/2 to Cancer -Megace 40 daily -Remeron 15mg PO HS Proph Pepcid and Protonix due to steroids Lovenox SC Regular Diet Decision To Admit - Pt Status Changed To: Hospital Disposition Of: Observation - . Bed Request Type: Remote Telemetry Admitting Physician: Camila Cohn <Camila Cohn - Last Filed: 11/26/16 02:52> Results - Vital Signs Recent Vital Signs: Last Vital Signs Temp 99.2 F 11/25/16 18:44 Pulse 75 11/25/16 23:45 Resp 17 11/25/16 23:45 BP 106/54 L 11/25/16 23:45 Pulse Ox 100 11/25/16 23:45 - Labs Result Diagrams: 11/25/16 20:00 11/25/16 20:00 Attending/Attestation - Attestation I have personally seen and examined this patient.: Yes I have fully participated in the care of the patient.: Yes I have reviewed all pertinent clinical information: Yes Notes (Text): 11/26/16 02:31 Patient was seen when he was in bed # 21 in the ER. Agree with history , physical examination, assessment and plan. 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
[2016-11-26] MEDS: Magnesium Citrate Oral SOL (300 ml) PO ONE ×2 (03:04→03:58)
[2016-11-26] MEDS: Albuterol-Ipratrop 3 mg / 0.5 (3 ml) UD IH SCH ×5 (03:05→19:35)
[2016-11-26] MEDS ORDERED: Albuterol 0.083% Inhal Sol (2.5 mg/3 mL) UD ONE (03:08)
[2016-11-26 03:58] LABS: ADD MANUAL DIFF? NO
[2016-11-26] MEDS: Morphine 2 mg/ml ISec IVP PRN ×5 (04:10→20:32)
[2016-11-26 04:13] LABS: BASO # 0.02 K/mm3 (0.0-2.0); BASO % 0.6 % (0.0-3.0); EOS % 0.3 % (1.5-5.0); GRAN % 42.7 % (50.0-68.0); HEMATOCRIT 30.3 % (42.0-52.0); LYMPH # 1.5 (1.2-3.4); MEAN CELL VOLUME 92.9 fL (80.0-105.0); MEAN CORPUSCULAR HEMOGLOBIN 30.7 pg (25.0-35.0); MEAN PLATELET VOLUME 9.2 fl (7.0-11.0); MONO # 0.5 (0.1-0.6); MONO % 13.4 % (1.0-6.0); PLATELET COUNT 304 10^3/uL (120.0-450.0); RED CELL DISTRIBUTION WIDTH 14.9 % (11.5-14.5); WHITE BLOOD COUNT 3.5 10^3/ul (4.5-11.0)
[2016-11-26 04:36] LABS: ALB/GLOB RATIO 1.1 (1.1-1.8); ALKALINE PHOSPHATASE 81 U/L (38-133); ALT/SGPT 13 U/L (7-56); AST/SGOT 34 U/L (15-59); BILIRUBIN,TOTAL 0.3 mg/dL (0.2-1.3); BLOOD UREA NITROGEN 6 mg/dL (7-21); CALCIUM 8.6 mg/dL (8.4-10.5); CARBON DIOXIDE 23 mmol/L (21-33); CHLORIDE 104 mmol/L (95-110); GFR AFRICAN-AMERICAN > 60; GLUCOSE,RANDOM 103 mg/dL (70-110); POTASSIUM 3.3 mmol/L (3.6-5.0); SODIUM 135 mmol/L (132-148); TOTAL PROTEIN 6.5 g/dL (5.8-8.3)
[2016-11-26 04:51] LABS: TROPONIN I < 0.01 ng/mL
[2016-11-26] MEDS ORDERED: Potassium Chloride 20 mEq ER Tab PO ONE (04:54)
[2016-11-26] MEDS: Pantoprazole 40 mg EC Tab PO SCH (05:18)
[2016-11-26] MEDS: oxyCODONE 30 mg Immediate Release Tab PO SCH ×3 (06:40→17:53)
--- NOTE | 2016-11-26 09:51 | CARD ---
APPROVED REPORT EKG Measurement Heart [id number] IA 132P82 [id number] <Conclusion> Normal sinus rhythm Normal ECG
--- NOTE | 2016-11-26 09:53 | CARD ---
APPROVED REPORT EKG Measurement Heart [id number] 140P75 [id number] <Conclusion> Normal sinus rhythm Normal ECG
[2016-11-26] MEDS ORDERED: Dexamethasone 4 MG in Sodium Chloride 0.9% 50 ML IV SCH (10:00)
[2016-11-26] MEDS: Enoxaparin 40 mg Syringe SC SCH (10:16)
[2016-11-26] MEDS: POLYETHYLENE GLYCOL 3350 17 GM/Dose PACKET PO SCH (10:16)
[2016-11-26] MEDS: Lidocaine 5% Patch TD SCH (10:17)
[2016-11-26] MEDS: Dexamethasone 4 mg/1 ml IVP SCH (10:17)
[2016-11-26] MEDS: Potassium Chloride 20 mEq ER Tab PO SCH (10:17)
[2016-11-27] MEDS: Albuterol-Ipratrop 3 mg / 0.5 (3 ml) UD IH SCH ×5 (01:36→20:06)
[2016-11-27] MEDS: oxyCODONE 30 mg Immediate Release Tab PO SCH ×4 (05:35→17:16)
[2016-11-27] MEDS: Pantoprazole 40 mg EC Tab PO SCH (05:35)
[2016-11-27 06:35] LABS: HEMATOCRIT 29.9 % (42.0-52.0); MEAN CELL VOLUME 92.3 fL (80.0-105.0); MEAN CORPUSCULAR HEMOGLOBIN 30.2 pg (25.0-35.0); MEAN CORPUSCULAR HGB CONC 32.8 g/dl (31.0-37.0); MEAN PLATELET VOLUME 9.3 fl (7.0-11.0); PLATELET COUNT 385 10^3/uL (120.0-450.0); WHITE BLOOD COUNT 3.4 10^3/ul (4.5-11.0)
[2016-11-27 06:38] LABS: ADD MANUAL DIFF? YES
[2016-11-27 06:46] LABS: ALB/GLOB RATIO 1.2 (1.1-1.8); ALKALINE PHOSPHATASE 75 U/L (38-133); ALT/SGPT 27 U/L (7-56); AST/SGOT 20 U/L (15-59); BILIRUBIN,TOTAL 0.3 mg/dL (0.2-1.3); BLOOD UREA NITROGEN 8 mg/dL (7-21); CALCIUM 9.1 mg/dL (8.4-10.5); CARBON DIOXIDE 25 mmol/L (21-33); CHLORIDE 103 mmol/L (95-110); GFR AFRICAN-AMERICAN > 60; GLUCOSE,RANDOM 103 mg/dL (70-110); SODIUM 137 mmol/L (132-148); TOTAL PROTEIN 6.7 g/dL (5.8-8.3)
[2016-11-27 06:57] LABS: BAND 3 % (0-2); BASOPHIL 1 % (0.0-1.0); EOSINOPHIL 1 % (0.0-3.0); NEUTROPHIL 48 % (50.0-70.0); PLATELET ESTIMATE NORMAL (NORMAL)
[2016-11-27] MEDS: Morphine 2 mg/ml ISec IVP PRN ×5 (08:00→23:00)
[2016-11-27] MEDS: Potassium Chloride 20 mEq ER Tab PO SCH (08:00)
[2016-11-27 09:12] VITALS: RESP 20
[2016-11-27] MEDS: Dexamethasone 4 mg/1 ml IVP SCH ×4 (09:37→23:02)
[2016-11-27] MEDS: POLYETHYLENE GLYCOL 3350 17 GM/Dose PACKET PO SCH (09:38)
[2016-11-27] MEDS: Lidocaine 5% Patch TD SCH (09:39)
[2016-11-27] MEDS: Enoxaparin 40 mg Syringe SC SCH (09:39)
--- NOTE | 2016-11-27 12:42 | CP.PCM.CON ---
History of Present Illness - History of Present Illness History of Present Illness: Palliative care consulted by Dr Michael Gaffney Reason:Goals of care HPI: 56 year old male with history of metastatic lung cancer who presented with pain in right neck which radiated to scapula and arm. CT scan revealed a right apical mass invading the adjacent paraspinous soft tissues, C&, T1 and T2 vertebral bodies and posterior elements, previously identified RUL mass. he is s /p radiation therapy, last chemotherapy Carboplatin/Alimta three weeks ago. PMHx: Lung cancer, emphysema, depression Social History: Former smoker, no alcohol or drug misuse. Lives alone. Has three sisters, two who live close and are supportive. Family History: Non contributory. Advance Care Planning: The patient does not have an Advance Directive. Review of Systems - Constitutional Constitutional: Fatigue, Weight Loss - EENT Nose/Mouth/Throat: Dry Mouth, Hoarsness - Cardiovascular Additional comments: negative - Respiratory Additional comments: negative - Gastrointestinal Gastrointestinal: Constipation, Early Satiety - Genitourinary Additional comments: negative - Musculoskeletal Musculoskeletal: Back Pain, Muscle Weakness, Neck Pain, Radiating Pain into Limb - Integumentary Additional comments: negative - Neurological Additional comments: negative - Psychiatric Additional comments: negative - Endocrine Additional Comments: negative Past Patient History - Infectious Disease Hx of Infectious Diseases: None - Past Social History Smoking Status: Former Smoker - CARDIAC Hx Cardiac Disorders: No - PULMONARY Hx Chronic Obstructive Pulmonary Disease (COPD): Yes - NEUROLOGICAL Hx Neurological Disorder: No - HEENT Hx HEENT Problems: No - RENAL Hx Chronic Kidney Disease: No - ENDOCRINE/METABOLIC Hx Endocrine Disorders: No - HEMATOLOGICAL/ONCOLOGICAL Hx Blood Disorders: No Hx Cancer: Yes (lung) Hx Metastesis: Yes - INTEGUMENTARY Hx Dermatological Problems: No - MUSCULOSKELETAL/RHEUMATOLOGICAL Hx Musculoskeletal Disorders: No Hx Back Pain: Yes Hx Falls: No - GASTROINTESTINAL Hx Gastrointestinal Disorders: No - GENITOURINARY/GYNECOLOGICAL Hx Genitourinary Disorders: No - PSYCHIATRIC Hx Psychophysiologic Disorder: Yes Hx Depression: Yes Hx Substance Use: No - SURGICAL HISTORY Hx Surgeries: Yes Hx Musculoskeletal Surgery: Yes (plate placed in back) Hx Orthopedic Surgery: Yes (R shoulder) Other/Comment: L upper arm port - ANESTHESIA Hx Anesthesia: Yes Hx Anesthesia Reactions: No Hx Malignant Hyperthermia: No Meds Allergies/Adverse Reactions: Allergies Allergy/AdvReac Type Severity Reaction Status Date / Time Penicillins Allergy ANAPHYLAXIS Verified 11/25/16 18:46 - Medications Medications: Current Medications Acetaminophen (Tylenol 325mg Tab) 650 mg PO Q6H PRN PRN Reason: Fever >100.4 F Albuterol Sulfate (Albuterol 0.083% Inhal Gabriella (2.5 Mg/3 Ml) Ud) 2.5 mg IH Q2H PRN PRN Reason: Shortness of Breath Albuterol/Ipratropium (Duoneb 3 Mg/0.5 Mg (3 Ml) Ud) 3 ml IH [id number] [facility] Last Admin: 11/27/16 07:32 Dose: Not Given Bisacodyl (Dulcolax) 5 mg PO TID PRN PRN Reason: costipation Last Admin: 11/26/16 10:16 Dose: 5 mg Dexamethasone (Decadron Inj) 4 mg IVP Q6H [facility] Last Admin: 11/27/16 11:36 Dose: Not Given Docusate Sodium (Colace) 100 mg PO BID [facility] Last Admin: 11/27/16 09:38 Dose: 100 mg Enoxaparin Sodium (Lovenox) 40 mg SC DAILY [facility] PRN Reason: Protocol Last Admin: 11/27/16 09:39 Dose: 40 mg Famotidine (Pepcid) 20 mg PO BID [facility] Last Admin: 11/27/16 09:38 Dose: 20 mg Fentanyl (Duragesic) 1 patch TD Q72H [facility] Last Admin: 11/26/16 03:59 Dose: Not Given Ibuprofen (Motrin Tab) 600 mg PO Q6H PRN PRN Reason: Pain, Mild (1-3) Lidocaine (Lidoderm) 2 ea TD DAILY [facility] Last Admin: 11/27/16 09:39 Dose: 2 ea Megestrol Acetate (Megace) 40 mg PO DAILY [facility] Last Admin: 11/27/16 09:41 Dose: 40 mg Methylnaltrexone [place] (Relistor) 8 mg SC DAILY [facility] Last Admin: 11/27/16 09:41 Dose: 8 mg Mirtazapine (Remeron) 15 mg PO HS [facility] Last Admin: 11/26/16 21:51 Dose: 15 mg Morphine Sulfate (Morphine) 2 mg IVP Q4H PRN PRN Reason: Pain, severe (8-10) Last Admin: 11/27/16 12:03 Dose: 2 mg Oxycodone HCl (Oxycodone Immediate Release Tab) 30 mg PO Q6 [facility] Last Admin: 11/27/16 12:05 Dose: 30 mg Pantoprazole Sodium (Protonix Ec Tab) 40 mg PO 0600 [facility] Last Admin: 11/27/16 05:35 Dose: 40 mg Polyethylene Glycol (Miralax) 17 gm PO DAILY [facility] Last Admin: 11/27/16 09:38 Dose: 17 gm Potassium Chloride (K-Dur 20 Meq Er Tab) 20 meq PO BRK [facility] Last Admin: 11/27/16 08:00 Dose: 20 meq Pregabalin (Lyrica) 75 mg PO TID [facility] Last Admin: 11/27/16 09:38 Dose: 75 mg Tizanidine HCl (Zanaflex) 4 mg PO Q6 [facility] Last Admin: 11/27/16 12:05 Dose: 4 mg Physical Exam - Constitutional Appears: No Acute Distress, Chronically Ill - Eye Exam Eye Exam: Normal appearance, PERRL - ENT Exam ENT Exam: Mucous Membranes Moist, Normal Oropharynx - Neck Exam Neck exam: Positive for: Normal Inspection - Respiratory Exam Respiratory Exam: Decreased Breath Sounds, NORMAL BREATHING PATTERN - Cardiovascular Exam Cardiovascular Exam: REGULAR RHYTHM, +S1, +S2 - GI/Abdominal Exam GI & Abdominal Exam: Normal Bowel Sounds, Soft - Extremities Exam Extremities exam: Positive for: normal inspection, pedal pulses present - Back Exam Back exam: NORMAL INSPECTION, vertebral tenderness - Neurological Exam Neurological exam: Alert, Oriented x3 - Skin Skin Exam: Dry, Pallor - Additional Findings Additional findings: Palliative performance scale rating 50 % Results - Vital Signs Recent Vital Signs: Last Vital Signs Temp 98.8 F 11/27/16 09:11 Pulse 77 11/27/16 09:11 Resp 20 11/27/16 09:11 BP 109/69 11/27/16 09:11 Pulse Ox 98 11/27/16 09:11 - Labs Result Diagrams: 11/27/16 06:00 11/27/16 06:00 Labs: Laboratory Results - last 24 hr 11/27/16 11/27/16 06:00 06:00 WBC 3.4 L RBC 3.24 L Hgb 9.8 L Hct 29.9 L MCV 92.3 MCH 30.2 MCHC 32.8 RDW 15.0 H Plt Count 385 MPV 9.3 Neutrophils % (Manual) 48 L Band Neutrophils % 3 H Lymphocytes % (Manual) 33 Monocytes % (Manual) 14 H Eosinophils % (Manual) 1 Basophils % (Manual) 1 Platelet Evaluation Normal Sodium 137 Potassium 4.0 Chloride 103 Carbon Dioxide 25 Anion Gap 13 BUN 8 Creatinine 0.5 Est GFR ( Amer) > 60 Est GFR (Non-Af Amer) > 60 Random Glucose 103 Calcium 9.1 Total Bilirubin 0.3 AST 20 ALT 27 Alkaline Phosphatase 75 Total Protein 6.7 Albumin 3.6 Globulin 3.1 Albumin/Globulin Ratio 1.2 Assessment & Plan - Assessment and Plan (Free Text) Assessment: 56 year old male admitted with pain in right neck scapula/arm secondary to metastatic lung cancer. The patient is alert and oriented to place, self and time. His voice is hoarse. He is able to communicate in [place]ian. He states that his pain is better controlled, has some tingling in weakness his right arm. He admits to being weak. He has a history of constipation, states he had three large BM's yesterday He understands that he has advanced cancer. He is very yazidi and states that God will determine how he does in the future. The patient states he is willing to continue cancer treatments at this time. I spoke to him about resuscitation wishes. I explained the benefits and burdens of CPR/intubation. He states that he wants to speak with his sisters about resuscitation status, in the interim he wants to remain a full code. Tie spent in discussion with patient regarding goals of care and advance of care planning, 20 minutes Plan: Will assist with establishing future goals of care and advance care planning.
--- NOTE | 2016-11-27 12:56 | CP.PCM.PN ---
<Justice Nelson - Last Filed: 11/27/16 12:52> Subjective - Date & Time of Evaluation Date of Evaluation: 11/27/16 Time of Evaluation: 07:50 - Subjective Subjective: Medicine progress note: Pt seen and examined at bedside. No acute events overnight. Pt c/o of R hand numbness, weakness, and tingling. Denies any diaz, dizziness, f/c, sob, cp, abd pain, n/v/d. Objective - Vital Signs/Intake and Output Vital Signs (last 24 hours): Temp Pulse Resp BP Pulse Ox 98.8 F 77 20 109/69 98 11/27/16 09:11 11/27/16 09:11 11/27/16 09:11 11/27/16 09:11 11/27/16 09:11 Intake and Output: 11/27/16 11/27/16 06:59 18:59 Intake Total 300 0 Balance 300 0 - Medications Medications: Current Medications Acetaminophen (Tylenol 325mg Tab) 650 mg PO Q6H PRN PRN Reason: Fever >100.4 F Albuterol Sulfate (Albuterol 0.083% Inhal Gabriella (2.5 Mg/3 Ml) Ud) 2.5 mg IH Q2H PRN PRN Reason: Shortness of Breath Albuterol/Ipratropium (Duoneb 3 Mg/0.5 Mg (3 Ml) Ud) [id number] [facility] Last Admin: 11/27/16 07:32 Dose: Not Given Bisacodyl (Dulcolax) 5 mg PO TID PRN PRN Reason: costipation Last Admin: 11/26/16 10:16 Dose: 5 mg Dexamethasone (Decadron Inj) [address] [facility] Last Admin: 11/27/16 11:36 Dose: Not Given Docusate Sodium (Colace) [address] [facility] Last Admin: 11/27/16 09:38 Dose: 100 mg Enoxaparin Sodium (Lovenox) [address] [facility] PRN Reason: Protocol Last Admin: 11/27/16 09:39 Dose: 40 mg Famotidine (Pepcid) [address] [facility] Last Admin: 11/27/16 09:38 Dose: 20 mg Fentanyl (Duragesic) [address] [facility] Last Admin: 11/26/16 03:59 Dose: Not Given Ibuprofen (Motrin Tab) 600 mg PO Q6H PRN PRN Reason: Pain, Mild (1-3) Lidocaine (Lidoderm) [address] [facility] Last Admin: 11/27/16 09:39 Dose: 2 ea Megestrol Acetate (Megace) [address] [facility] Last Admin: 11/27/16 09:41 Dose: 40 mg Methylnaltrexone [place] (Relistor) [address] [facility] Last Admin: 11/27/16 09:41 Dose: 8 mg Mirtazapine (Remeron) [address] [facility] Last Admin: 11/26/16 21:51 Dose: 15 mg Morphine Sulfate (Morphine) 2 mg IVP Q4H PRN PRN Reason: Pain, severe (8-10) Last Admin: 11/27/16 12:03 Dose: 2 mg Oxycodone HCl (Oxycodone Immediate Release Tab) [address] [facility] Last Admin: 11/27/16 12:05 Dose: 30 mg Pantoprazole Sodium (Protonix Ec Tab) [address] [facility] Last Admin: 11/27/16 05:35 Dose: 40 mg Polyethylene Glycol (Miralax) [address] [facility] Last Admin: 11/27/16 09:38 Dose: 17 gm Potassium Chloride (K-Dur 20 Meq Er Tab) [address] [facility] Last Admin: 11/27/16 08:00 Dose: 20 meq Pregabalin (Lyrica) [address] [facility] Last Admin: 11/27/16 09:38 Dose: 75 mg Tizanidine HCl (Zanaflex) [address] [facility] Last Admin: 11/27/16 12:05 Dose: 4 mg - Labs Labs: 11/27/16 06:00 11/27/16 06:00 - Constitutional Appears: No Acute Distress - Head Exam Head Exam: ATRAUMATIC, NORMAL INSPECTION, NORMOCEPHALIC - Eye Exam Eye Exam: EOMI, Normal appearance, PERRL Pupil Exam: NORMAL ACCOMODATION, PERRL - ENT Exam ENT Exam: Mucous Membranes Moist, Normal Exam - Neck Exam Neck Exam: Full ROM, Normal Inspection. absent: Lymphadenopathy - Respiratory Exam Respiratory Exam: Clear to Ausculation Bilateral, NORMAL BREATHING PATTERN. absent: Wheezes - Cardiovascular Exam Cardiovascular Exam: REGULAR RHYTHM, RRR, +S1, +S2. absent: Murmur - GI/Abdominal Exam GI & Abdominal Exam: Soft, Normal Bowel Sounds. absent: Distended, Tenderness - Extremities Exam Extremities Exam: Full ROM, Normal Capillary Refill, Normal Inspection, Tenderness. absent: Calf Tenderness, Joint Swelling, Pedal Edema Additional comments: R arm: FROM, R arm and hand weakness, sensation intact. Radial pulse palpable - Back Exam Back Exam: NORMAL INSPECTION - Neurological Exam Neurological Exam: Alert, Awake, CN II-XII Intact, Normal Gait, Oriented x3 - Psychiatric Exam Psychiatric exam: Normal Affect, Normal Mood - Skin Skin Exam: Dry, Intact, Normal Color, Warm Assessment and Plan - Assessment and Plan (Free Text) Assessment: 56yo Mwith pmh of stage IV NSLC that is directly invading mechanically into the vertebral bodies between T3 and T6 admitted for intractable pain 2/2 to metastases to spine. 1. Intractable Pain 2/2 to Stage 4 bone mets -Fentanyl patch TD Q72H 50mcg, oxycodone 30mg Q6H PO immediate release, Morphine 2mg IV Q4H , and Lidocaine Patch -Consulted Rad/onc Dr Villegas - pt already treated with radiation. Radiation no indicated at this time. Recommend neuro sx eval -Heme/ onc consulted for recs - pain control, recommend consulting pain management, Neuro sx, and neurology -Decadron increased to 4mg Q6H -Aletha Paramonte Consult for recs -Neurology consulted for recs -Neuro surgery consulted for recs -Trop x 2 negative -Cont Lyrica 2. COPD -Albuterol PRN for SOB 3. Depression/Sleep Disorder -Remeron 15mg HS 4. Anorexia 2/2 to Cancer -Megace 40 daily -Remeron 15mg PO HS 5. Constipation 2/2 chronic opiod use - cont Rolistor, Dulcolax, Colace 6. GI/DVT ppx Protonix & Lovenox SC Case and plan was seen, reviewed and discussed in detail with Dr Kern. <Concha NUGENT,[facility] - Last Filed: 11/27/16 15:57> Objective - Vital Signs/Intake and Output Vital Signs (last 24 hours): Temp Pulse Resp BP Pulse Ox 98.8 F 77 20 109/69 98 11/27/16 09:11 11/27/16 09:11 11/27/16 09:11 11/27/16 09:11 11/27/16 09:11 - Medications Medications: Current Medications Acetaminophen (Tylenol 325mg Tab) 650 mg PO Q6H PRN PRN Reason: Fever >100.4 F Albuterol Sulfate (Albuterol 0.083% Inhal Gabriella (2.5 Mg/3 Ml) Ud) 2.5 mg IH Q2H PRN PRN Reason: Shortness of Breath Albuterol/Ipratropium (Duoneb 3 Mg/0.5 Mg (3 Ml) Ud) [id number] [facility] Last Admin: 11/27/16 13:11 Dose: Not Given Bisacodyl (Dulcolax) 5 mg PO TID PRN PRN Reason: costipation Last Admin: 11/26/16 10:16 Dose: 5 mg Dexamethasone (Decadron Inj) [address] [facility] Last Admin: 11/27/16 11:36 Dose: Not Given Docusate Sodium (Colace) [address] [facility] Last Admin: 11/27/16 09:38 Dose: 100 mg Enoxaparin Sodium (Lovenox) [address] [facility] PRN Reason: Protocol Last Admin: 11/27/16 09:39 Dose: 40 mg Famotidine (Pepcid) [address] [facility] Last Admin: 11/27/16 09:38 Dose: 20 mg Fentanyl (Duragesic) [address] [facility] Last Admin: 11/26/16 03:59 Dose: Not Given Lidocaine (Lidoderm) [address] [facility] Last Admin: 11/27/16 09:39 Dose: 2 ea Megestrol Acetate (Megace) [address] [facility] Last Admin: 11/27/16 09:41 Dose: 40 mg Methylnaltrexone [place] (Relistor) [address] [facility] Last Admin: 11/27/16 09:41 Dose: 8 mg Mirtazapine (Remeron) [address] [facility] Last Admin: 11/26/16 21:51 Dose: 15 mg Morphine Sulfate (Morphine) 1 mg IVP Q4H PRN PRN Reason: Pain, severe (8-10) Last Admin: 11/27/16 15:41 Dose: 1 mg Oxycodone HCl (Oxycodone Immediate Release Tab) [address] [facility] Last Admin: 11/27/16 12:05 Dose: 30 mg Pantoprazole Sodium (Protonix Ec Tab) [address] [facility] Last Admin: 11/27/16 05:35 Dose: 40 mg Polyethylene Glycol (Miralax) [address] [facility] Last Admin: 11/27/16 09:38 Dose: 17 gm Potassium Chloride (K-Dur 20 Meq Er Tab) [address] [facility] Last Admin: 11/27/16 08:00 Dose: 20 meq Pregabalin (Lyrica) [address] [facility] Last Admin: 11/27/16 14:30 Dose: 75 mg Tizanidine HCl (Zanaflex) [address] [facility] Last Admin: 11/27/16 12:05 Dose: 4 mg Attending/Attestation - Attestation I have personally seen and examined this patient.: Yes I have fully participated in the care of the patient.: Yes I have reviewed all pertinent clinical information, including history, physical exam and plan: Yes Notes (Text): 11/27/16 15:53 Patient was seen and examined with medical terminologist .Agreed with resident assessment and plan. 56yo M with pmh of stage IV NSLC that is directly invading mechanically into the vertebral bodies between T3 and T6 admitted for intractable pain 2/2 to metastases to spine. MRI of spine is unchanged, there is no evidence of spinal cord compression on cervical MRI, however patient does has righ upper extremity weakness, also c/o burning sensation increasing, will get Neurology and NS consult. Constipation has resolved Management plan was discussed in detail with patient Education was provided.
[2016-11-27] MEDS ORDERED: Peg-Electrolyte Oral Soln 4L (Golytely) PO ONE (13:36)
[2016-11-27] MEDS ORDERED: Morphine 2 mg/ml ISec IVP PRN (14:43)
--- NOTE | 2016-11-27 14:47 | MRI ---
PROCEDURE: MR CERVICAL SPINE WITHOUT CONTRAST HISTORY: Bone mets COMPARISON: MRI 10/17/2016 TECHNIQUE: Multiecho multiplanar sequences were performed through the cervical spine without the use of intravenous contrast. FINDINGS: Normal lordotic curvature. Craniocervical junction unremarkable. Vertebral body heights preserved. Normal cervical cord. C2-C3: No disc herniation, spinal canal stenosis or neural foraminal narrowing. C3-C4: No disc herniation, spinal canal stenosis or neural foraminal narrowing. C4-C5: Disc bulge in osteophytic ridge with severe spinal stenosis C5-C6: Previous fusion C6-C7: Disc bulge C7-T1: There is a mass in the right lung apex that invades the adjacent T1 and T2 vertebral bodies as well as the right-sided pedicles and lamina. There is also invasion of the right-sided spinal erector muscles up to the C6 level. The findings are unchanged OTHER FINDINGS: None. IMPRESSION: There is a mass in the right lung apex that invades the adjacent T1 and T2 vertebral bodies as well as the right-sided pedicles and lamina. There is also invasion of the right-sided spinal erector muscles up to the C6 level. The findings are unchanged
--- NOTE | 2016-11-27 17:08 | CP.PCM.CON ---
History of Present Illness - History of Present Illness History of Present Illness: NEURO CONSULT NOTE: 11/27/16 Chief complaint: Neck pain and right shoulder and right arm pain with paresthesias. History of present illness: This is a 56-year-old man, chronic smoker, history of COPD, recently diagnosed with stage IV non-small cell carcinoma of the lung who came in for intractable pain. He mentions that he has neck pain rating down the right side of the back to little below the scapular area. He said the pain was more of a burning sensation of pain and going towards into his right shoulder and into the upper arm. He says the numbness as well as more towards the thumb and index finger than the little finger of the right. MRI of the cervical spine shows a mass in the right lung apex and base the adjacent T1 and T2 vertebral bodies as well as the right sided pedicles and lamina. There is also invasion of the right sided spinal erector muscle up to the C6 level and has features of cervical fusion from prior surgery in the past. Neurosurgery is seen in the past who recommended debulking of the tumor since his compressing the part of the brachial plexus which I agree with him. Patient is on dexamethasone 4 mg IV every 6 for pain relief as well as fentanyl patch. Oncology note reviewed and appreciated. ROS: 14 POINT REVIEW OF SYMPTOMS IS NEGATIVE PER HPI. ALLERGIES:PENICILLIN SOCIAL HISTORY: NO ILLICIT DRUG USE, SMOKING, OR ETOH USE. FAMILY: NON CONTRIBUTORY. MEDICATIONS: REVIEWED BY NURSE'S RECONCILIATION SHEET. PAST MEDICAL HISTORY:Chronic smoker, history of COPD, recently diagnosed with stage IV non-small cell carcinoma of the lung, CERVICAL FUSION PHYSICAL EXAM: VITAL SIGNS: REVIEWED BY THE CHART GENERAL EXAM: PATIENT SEEN IN BED, IN NO ACUTE DISTRESS MORBIDLY OBESE. HEENT: PERRLA, EOMI, NECK SUPPLE, NO JVD, NO ADENOPATHY CVS: S1, S2, RRR, NO MURMURS NOTED LUNGS: CLEAR TO AUSCULTATION, NO ADVENTITIOUS SOUNDS ABDOMEN: SOFT AND NONTENDER EXTREMITIES: NO CLUBBING OR CYANOSIS. PP 2+ B/L NEURO: PT IS ALERT AND ORIENTED TO PERSON, PLACE, AND YEAR. 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 SENSORY EXAM: LIGHT TOUCH, PIN PRICK UP TO CALVES B/L, PROPRIOCEPTION , VIBRATION ARE INTACT B/L EXCEPT DECREASED SENSATION TO TOUCH MORE ON THE R INDEX FINGER COMPARED TO THE LEFT DEEP TENDON REFLEXES: 2+ THROUGHOUT. COORDINATION: FINGER TO NOSE IS INTACT. HEEL TO SHAIKH IS INTACT GAIT: DEFERRED FOR NOW LABS: REVIEWED BY THE CHART. ASSESSMENT AND PLAN: This is a 56-year-old man, chronic smoker, history of COPD, recently diagnosed with stage IV non-small cell carcinoma of the lung who came in for intractable pain. He mentions that he has neck pain rating down the right side of the back to little below the scapular area. He said the pain was more of a burning sensation of pain and going towards into his right shoulder and into the upper arm. He says the numbness as well as more towards the thumb and index finger than the little finger of the right. MRI of the cervical spine shows a mass in the right lung apex and base the adjacent T1 and T2 vertebral bodies as well as the right sided pedicles and lamina. There is also invasion of the right sided spinal erector muscle up to the C6 level and has features of cervical fusion from prior surgery in the past. Neurosurgery is seen in the past who recommended debulking of the tumor since his compressing the part of the brachial plexus which I agree with him. Patient is on dexamethasone 4 mg IV every 6 for pain relief as well as fentanyl patch. Oncology note reviewed and appreciated. Impression: Cervical neck pain rating down the right arm with paresthesias secondary to mass in the right lung apex and base the adjacent T1 and T2 vertebral bodies as well as the right-sided pedicles and lamina as well as there is also invasion of the right sided spinal rectum muscle up to the level C6 level. The mass is encroaching possibly the brachial plexus along with a bruised area and given hands cervical radiculopathy symptoms. Plan: 1. Continue with opiates as well as Decadron for pain management relief. 2. Continue her Lyrica 75 mg p.o. to 3 times daily for neuropathic pain could increase to 100 twice daily if necessary 4. Needs debulking of the mass which could help reduce the pressure on the nerve roots 5. Follow-up with oncology management at this time his prognosis is guarded please reconsult necessary if needed will sign off THANK YOU PLEASE RECONSULT NECESSARY. Storm ARECHIGA MD Past Patient History - Infectious Disease Hx of Infectious Diseases: None - Past Social History Smoking Status: Former Smoker - CARDIAC Hx Cardiac Disorders: No - PULMONARY Hx Chronic Obstructive Pulmonary Disease (COPD): Yes - NEUROLOGICAL Hx Neurological Disorder: No - HEENT Hx HEENT Problems: No - RENAL Hx Chronic Kidney Disease: No - ENDOCRINE/METABOLIC Hx Endocrine Disorders: No - HEMATOLOGICAL/ONCOLOGICAL Hx Blood Disorders: No Hx Cancer: Yes (lung) Hx Metastesis: Yes - INTEGUMENTARY Hx Dermatological Problems: No - MUSCULOSKELETAL/RHEUMATOLOGICAL Hx Musculoskeletal Disorders: No Hx Back Pain: Yes Hx Falls: No - GASTROINTESTINAL Hx Gastrointestinal Disorders: No - GENITOURINARY/GYNECOLOGICAL Hx Genitourinary Disorders: No - PSYCHIATRIC Hx Psychophysiologic Disorder: Yes Hx Depression: Yes Hx Substance Use: No - SURGICAL HISTORY Hx Surgeries: Yes Hx Musculoskeletal Surgery: Yes (plate placed in back) Hx Orthopedic Surgery: Yes (R shoulder) Other/Comment: L upper arm port - ANESTHESIA Hx Anesthesia: Yes Hx Anesthesia Reactions: No Hx Malignant Hyperthermia: No Meds Allergies/Adverse Reactions: Allergies Allergy/AdvReac Type Severity Reaction Status Date / Time Penicillins Allergy ANAPHYLAXIS Verified 11/25/16 18:46 - Medications Medications: Current Medications Acetaminophen (Tylenol 325mg Tab) 650 mg PO Q6H PRN PRN Reason: Fever >100.4 F Albuterol Sulfate (Albuterol 0.083% Inhal Gabriella (2.5 Mg/3 Ml) Ud) 2.5 mg IH Q2H PRN PRN Reason: Shortness of Breath Albuterol/Ipratropium (Duoneb 3 Mg/0.5 Mg (3 Ml) Ud) 3 ml IH [id number] [facility] Last Admin: 11/27/16 13:11 Dose: Not Given Bisacodyl (Dulcolax) 5 mg PO TID PRN PRN Reason: costipation Last Admin: 11/26/16 10:16 Dose: 5 mg Dexamethasone (Decadron Inj) 4 mg IVP Q6H [facility] Last Admin: 11/27/16 11:36 Dose: Not Given Docusate Sodium (Colace) 100 mg PO BID [facility] Last Admin: 11/27/16 09:38 Dose: 100 mg Enoxaparin Sodium (Lovenox) 40 mg SC DAILY [facility] PRN Reason: Protocol Last Admin: 11/27/16 09:39 Dose: 40 mg Famotidine (Pepcid) 20 mg PO BID [facility] Last Admin: 11/27/16 09:38 Dose: 20 mg Fentanyl (Duragesic) 1 patch TD Q72H [facility] Last Admin: 11/26/16 03:59 Dose: Not Given Lidocaine (Lidoderm) 2 ea TD DAILY [facility] Last Admin: 11/27/16 09:39 Dose: 2 ea Megestrol Acetate (Megace) 40 mg PO DAILY [facility] Last Admin: 11/27/16 09:41 Dose: 40 mg Methylnaltrexone [place] (Relistor) 8 mg SC DAILY [facility] Last Admin: 11/27/16 09:41 Dose: 8 mg Mirtazapine (Remeron) 15 mg PO HS [facility] Last Admin: 11/26/16 21:51 Dose: 15 mg Morphine Sulfate (Morphine) 2 mg IVP Q2H PRN PRN Reason: Pain, severe (8-10) Oxycodone HCl (Oxycodone Immediate Release Tab) 30 mg PO Q6 [facility] Last Admin: 11/27/16 12:05 Dose: 30 mg Pantoprazole Sodium (Protonix Ec Tab) 40 mg PO 0600 [facility] Last Admin: 11/27/16 05:35 Dose: 40 mg Polyethylene Glycol (Miralax) 17 gm PO DAILY [facility] Last Admin: 11/27/16 09:38 Dose: 17 gm Potassium Chloride (K-Dur 20 Meq Er Tab) 20 meq PO BRK [facility] Last Admin: 11/27/16 08:00 Dose: 20 meq Pregabalin (Lyrica) 75 mg PO TID [facility] Last Admin: 11/27/16 14:30 Dose: 75 mg Tizanidine HCl (Zanaflex) 4 mg PO Q6 [facility] Last Admin: 11/27/16 12:05 Dose: 4 mg Results - Vital Signs Recent Vital Signs: Last Vital Signs Temp 98.8 F 11/27/16 09:11 Pulse 77 11/27/16 09:11 Resp 20 11/27/16 09:11 BP 109/69 11/27/16 09:11 Pulse Ox 98 11/27/16 09:11 - Labs Result Diagrams: 11/27/16 06:00 11/27/16 06:00
[2016-11-28] MEDS: oxyCODONE 30 mg Immediate Release Tab PO SCH ×4 (00:25→17:28)
[2016-11-28] MEDS: Albuterol-Ipratrop 3 mg / 0.5 (3 ml) UD IH SCH ×3 (01:47→14:49)
[2016-11-28] MEDS: Pantoprazole 40 mg EC Tab PO SCH (05:06)
[2016-11-28] MEDS: Morphine 2 mg/ml ISec IVP PRN ×3 (05:06→14:11)
[2016-11-28] MEDS: Dexamethasone 4 mg/1 ml IVP SCH ×2 (05:06→12:08)
[2016-11-28 06:47] LABS: ADD MANUAL DIFF? NO
[2016-11-28 07:02] LABS: ALB/GLOB RATIO 1.1 (1.1-1.8); ALKALINE PHOSPHATASE 70 U/L (38-133); ALT/SGPT 26 U/L (7-56); AST/SGOT 24 U/L (15-59); BILIRUBIN,TOTAL 0.3 mg/dL (0.2-1.3); BLOOD UREA NITROGEN 13 mg/dL (7-21); CARBON DIOXIDE 25 mmol/L (21-33); CHLORIDE 102 mmol/L (95-110); GFR AFRICAN-AMERICAN > 60; GLUCOSE,RANDOM 137 mg/dL (70-110); SODIUM 137 mmol/L (132-148); TOTAL PROTEIN 6.9 g/dL (5.8-8.3)
[2016-11-28 07:18] LABS: BASO # 0.01 K/mm3 (0.0-2.0); BASO % 0.3 % (0.0-3.0); GRAN # 2.44 (1.4-6.5); GRAN % 64.7 % (50.0-68.0); HEMATOCRIT 29.9 % (42.0-52.0); LYMPH # 0.9 (1.2-3.4); LYMPH % 22.8 % (22.0-35.0); MEAN CORPUSCULAR HEMOGLOBIN 29.8 pg (25.0-35.0); MEAN CORPUSCULAR HGB CONC 32.4 g/dl (31.0-37.0); MEAN PLATELET VOLUME 9.2 fl (7.0-11.0); MONO # 0.5 (0.1-0.6); MONO % 12.2 % (1.0-6.0); PLATELET COUNT 377 10^3/uL (120.0-450.0); RED CELL DISTRIBUTION WIDTH 15.2 % (11.5-14.5); WHITE BLOOD COUNT 3.8 10^3/ul (4.5-11.0)
[2016-11-28 08:50] VITALS: BP 100/58; PULSE 80; TEMP 98.9; O2SAT 98
--- NOTE | 2016-11-28 09:05 | CP.PCM.PN ---
Subjective - Date & Time of Evaluation Date of Evaluation: 11/28/16 Time of Evaluation: 08:00 - Subjective Subjective: Patient is upset complaining of intractable pain in right shoulder, states it is a level of 10 Objective - Vital Signs/Intake and Output Vital Signs (last 24 hours): Temp Pulse Resp BP Pulse Ox 98.9 F 80 20 100/58 L 98 11/28/16 08:50 11/28/16 08:50 11/28/16 08:50 11/28/16 08:50 11/28/16 08:50 Intake and Output: 11/28/16 11/28/16 06:59 18:59 Intake Total 900 Balance 900 - Medications Medications: Current Medications Acetaminophen (Tylenol 325mg Tab) 650 mg PO Q6H PRN PRN Reason: Fever >100.4 F Albuterol Sulfate (Albuterol 0.083% Inhal Gabriella (2.5 Mg/3 Ml) Ud) 2.5 mg IH Q2H PRN PRN Reason: Shortness of Breath Albuterol/Ipratropium (Duoneb 3 Mg/0.5 Mg (3 Ml) Ud) 3 ml IH [id number] [facility] Last Admin: 11/28/16 08:01 Dose: 3 ml Bisacodyl (Dulcolax) 5 mg PO TID PRN PRN Reason: costipation Last Admin: 11/26/16 10:16 Dose: 5 mg Dexamethasone (Decadron Inj) 4 mg IVP Q6H [facility] Last Admin: 11/28/16 05:06 Dose: 4 mg Docusate Sodium (Colace) 100 mg PO BID [facility] Last Admin: 11/27/16 17:16 Dose: 100 mg Enoxaparin Sodium (Lovenox) 40 mg SC DAILY [facility] PRN Reason: Protocol Last Admin: 11/27/16 09:39 Dose: 40 mg Famotidine (Pepcid) 20 mg PO BID [facility] Last Admin: 11/27/16 17:18 Dose: 20 mg Fentanyl (Duragesic) 1 patch TD Q72H [facility] Last Admin: 11/26/16 03:59 Dose: Not Given Lidocaine (Lidoderm) 2 ea TD DAILY [facility] Last Admin: 11/27/16 09:39 Dose: 2 ea Megestrol Acetate (Megace) 40 mg PO DAILY [facility] Last Admin: 11/27/16 09:41 Dose: 40 mg Methylnaltrexone [place] (Relistor) 8 mg SC DAILY [facility] Last Admin: 11/27/16 09:41 Dose: 8 mg Mirtazapine (Remeron) 15 mg PO HS [facility] Last Admin: 11/27/16 21:10 Dose: 15 mg Morphine Sulfate (Morphine) 2 mg IVP Q2H PRN PRN Reason: Pain, severe (8-10) Last Admin: 11/28/16 05:06 Dose: 2 mg Oxycodone HCl (Oxycodone Immediate Release Tab) 30 mg PO Q6 [facility] Last Admin: 11/28/16 06:20 Dose: 30 mg Pantoprazole Sodium (Protonix Ec Tab) 40 mg PO 0600 [facility] Last Admin: 11/28/16 05:06 Dose: 40 mg Polyethylene Glycol (Miralax) 17 gm PO DAILY [facility] Last Admin: 11/27/16 09:38 Dose: 17 gm Potassium Chloride (K-Dur 20 Meq Er Tab) 20 meq PO BRK [facility] Last Admin: 11/27/16 08:00 Dose: 20 meq Pregabalin (Lyrica) 75 mg PO TID [facility] Last Admin: 11/27/16 17:22 Dose: 75 mg Tizanidine HCl (Zanaflex) 4 mg PO Q6 [facility] Last Admin: 11/28/16 05:06 Dose: 4 mg - Labs Labs: 11/28/16 06:30 11/28/16 06:30 - Constitutional Appears: Cachectic, Chronically Ill - Eye Exam Eye Exam: Normal appearance, PERRL - ENT Exam ENT Exam: Mucous Membranes Moist, Normal Oropharynx - Respiratory Exam Respiratory Exam: Decreased Breath Sounds, NORMAL BREATHING PATTERN - Cardiovascular Exam Cardiovascular Exam: Tachycardia, +S1 - GI/Abdominal Exam GI & Abdominal Exam: Soft, Normal Bowel Sounds - Extremities Exam Extremities Exam: Normal Capillary Refill, Normal Inspection - Back Exam Back Exam: vertebral tenderness - Skin Skin Exam: Dry, Warm Assessment and Plan - Assessment and Plan (Free Text) Assessment: 56 year old male admitted with intractable pain of right neck shoulder and arm secondary metastatic lung cancer. Patient is upset, he has intractable pain. He is requesting his Oxycodone 30 mg IR every 6 hours. He is currently on Fentaynl 50mcg transdermal patch. States he was on 175 mcg at home He had soft BM yesterday. He has not spoken to his sisters about advance care planning as yet. Plan: Pain Management: Will increase Fentanyl patch to 75 mcg now. Continue Oxycodone 30 mg IR every 6 hours as needed for breakthrough pain. Will monitor pain and reevaluate need for dose titration Constipation: Patient is on multiple medications. Would consider increasing Relistor to 12 mg but use only as needed rather scheduled dosing. Continue Miralax 17 gm daily, Add Sennosides with Docusate daily. Enemas prn. Advance care planning
[2016-11-28] MEDS: Lidocaine 5% Patch TD SCH (09:21)
[2016-11-28] MEDS: POLYETHYLENE GLYCOL 3350 17 GM/Dose PACKET PO SCH (09:22)
[2016-11-28] MEDS: Enoxaparin 40 mg Syringe SC SCH (09:22)
[2016-11-28] MEDS: Potassium Chloride 20 mEq ER Tab PO SCH (10:45)
--- NOTE | 2016-11-28 14:10 | CP.PCM.PN ---
<Justice Nelson - Last Filed: 11/28/16 14:02> Subjective - Date & Time of Evaluation Date of Evaluation: 11/28/16 Time of Evaluation: 07:10 - Subjective Subjective: Medicine progress note: Pt seen and examined at bedside. No acute events overnight. Pt still complaining of R hand weakness, and tingling. Denies any diaz, dizziness, f/c, sob , cp, abd pain, n/v/d. Objective - Vital Signs/Intake and Output Vital Signs (last 24 hours): Temp Pulse Resp BP Pulse Ox 98.9 F 80 20 100/58 L 98 11/28/16 08:50 11/28/16 08:50 11/28/16 08:50 11/28/16 08:50 11/28/16 08:50 Intake and Output: 11/28/16 11/28/16 06:59 18:59 Intake Total 900 360 Balance 900 360 - Medications Medications: Current Medications Acetaminophen (Tylenol 325mg Tab) 650 mg PO Q6H PRN PRN Reason: Fever >100.4 F Albuterol Sulfate (Albuterol 0.083% Inhal Gabriella (2.5 Mg/3 Ml) Ud) 2.5 mg IH Q2H PRN PRN Reason: Shortness of Breath Albuterol/Ipratropium (Duoneb 3 Mg/0.5 Mg (3 Ml) Ud) 3 ml IH [id number] [facility] Last Admin: 11/28/16 08:01 Dose: 3 ml Bisacodyl (Dulcolax) 5 mg PO TID PRN PRN Reason: costipation Last Admin: 11/26/16 10:16 Dose: 5 mg Dexamethasone (Decadron Inj) 4 mg IVP Q6H [facility] Last Admin: 11/28/16 12:08 Dose: 4 mg Docusate Sodium (Colace) 100 mg PO BID [facility] Last Admin: 11/28/16 09:21 Dose: 100 mg Enoxaparin Sodium (Lovenox) 40 mg SC DAILY [facility] PRN Reason: Protocol Last Admin: 11/28/16 09:22 Dose: 40 mg Famotidine (Pepcid) 20 mg PO BID [facility] Last Admin: 11/28/16 09:21 Dose: 20 mg Fentanyl (Duragesic) 1 patch TD Q72H [facility] Last Admin: 11/28/16 09:24 Dose: 1 patch Lidocaine (Lidoderm) 2 ea TD DAILY [facility] Last Admin: 11/28/16 09:21 Dose: 2 ea Megestrol Acetate (Megace) 40 mg PO DAILY [facility] Last Admin: 11/28/16 10:44 Dose: 40 mg Methylnaltrexone [place] (Relistor) 8 mg SC DAILY [facility] Last Admin: 11/28/16 09:22 Dose: Not Given Mirtazapine (Remeron) 15 mg PO HS [facility] Last Admin: 11/27/16 21:10 Dose: 15 mg Morphine Sulfate (Morphine) 2 mg IVP Q2H PRN PRN Reason: Pain, severe (8-10) Last Admin: 11/28/16 09:21 Dose: 2 mg Oxycodone HCl (Oxycodone Immediate Release Tab) 30 mg PO Q6 [facility] Last Admin: 11/28/16 12:12 Dose: 30 mg Pantoprazole Sodium (Protonix Ec Tab) 40 mg PO 0600 [facility] Last Admin: 11/28/16 05:06 Dose: 40 mg Polyethylene Glycol (Miralax) 17 gm PO DAILY [facility] Last Admin: 11/28/16 09:22 Dose: 17 gm Potassium Chloride (K-Dur 20 Meq Er Tab) 20 meq PO BRK [facility] Last Admin: 11/28/16 10:45 Dose: 20 meq Pregabalin (Lyrica) 75 mg PO TID [facility] Last Admin: 11/28/16 10:44 Dose: 75 mg Tizanidine HCl (Zanaflex) 4 mg PO Q6 [facility] Last Admin: 11/28/16 12:13 Dose: 4 mg - Labs Labs: 11/28/16 06:30 11/28/16 06:30 - Constitutional Appears: No Acute Distress - Head Exam Head Exam: ATRAUMATIC, NORMAL INSPECTION, NORMOCEPHALIC - Eye Exam Eye Exam: EOMI, Normal appearance, PERRL Pupil Exam: NORMAL ACCOMODATION, PERRL - ENT Exam ENT Exam: Mucous Membranes Moist, Normal Exam - Neck Exam Neck Exam: Full ROM, Normal Inspection. absent: Lymphadenopathy - Respiratory Exam Respiratory Exam: Clear to Ausculation Bilateral, NORMAL BREATHING PATTERN. absent: Wheezes - Cardiovascular Exam Cardiovascular Exam: REGULAR RHYTHM, RRR, +S1, +S2. absent: Murmur - GI/Abdominal Exam GI & Abdominal Exam: Soft, Normal Bowel Sounds. absent: Distended, Tenderness - Extremities Exam Extremities Exam: Full ROM, Normal Capillary Refill, Normal Inspection. absent : Joint Swelling, Pedal Edema - Back Exam Back Exam: NORMAL INSPECTION - Neurological Exam Neurological Exam: Alert, Awake, CN II-XII Intact, Oriented x3 Neuro motor strength exam: Right Upper Extremity: 4 - Psychiatric Exam Psychiatric exam: Normal Affect, Normal Mood - Skin Skin Exam: Dry, Intact, Normal Color, Warm Assessment and Plan - Assessment and Plan (Free Text) Assessment: 56yo Mwith pmh of stage IV NSLC that is directly invading mechanically into the vertebral bodies between T3 and T6 admitted for intractable pain 2/2 to metastases to spine. 1. Intractable Pain 2/2 to Stage 4 bone mets MRI cervical spine showed mass in R lung apexthat invades adjacent T1 and T2 vertebral bodies and R sided pedicles & Lamina. Also invasion of R spinal erector mucsle up to C6 -Continue Fentanyl patch TD Q72H 75mcg, oxycodone 30mg Q6H, Morphine 2mg IV Q2H , and Lidocaine Patch -Consulted Rad/onc Dr Villegas - pt already treated with radiation. Radiation no indicated at this time. Recommend neuro sx eval -Heme/ onc consulted for recs - pain control, recommend consulting pain management, Neuro sx, and neurology -Decadron increased to 4mg Q6H -Palliative Consult for recs- inc fentanyl patch to 75mcg, Cont oxycodone 30mg Q6H , Relistor as PRN basis. Has not spoken to his sisters about advance care planning as yet. -Neurology consulted for recs - Cont Decadron, Lyrica, May benefit from debulking of the mass to release some of the pressure on the nerve root -Neuro surgery consulted - awaiting recs -Trop x 2 negative 2. COPD -Albuterol PRN for SOB 3. Depression/Sleep Disorder -Remeron 15mg HS 4. Anorexia 2/2 to Cancer -Megace 40 daily -Remeron 15mg PO HS 5. Constipation 2/2 chronic opiod use - cont Rolistor changed to PRN - Cont Dulcolax, Colace 6. GI/DVT ppx Protonix & Lovenox SC Case and plan was seen, reviewed and discussed in detail with Dr Kern. <Concha NUGENT,Elisabet - Last Filed: 11/28/16 14:51> Objective - Vital Signs/Intake and Output Vital Signs (last 24 hours): Temp Pulse Resp BP Pulse Ox 98.9 F 80 20 100/58 L 98 11/28/16 08:50 11/28/16 08:50 11/28/16 08:50 11/28/16 08:50 11/28/16 08:50 Intake and Output: 11/28/16 11/28/16 06:59 18:59 Intake Total 900 360 Balance 900 360 - Medications Medications: Current Medications Acetaminophen (Tylenol 325mg Tab) 650 mg PO Q6H PRN PRN Reason: Fever >100.4 F Albuterol Sulfate (Albuterol 0.083% Inhal Gabriella (2.5 Mg/3 Ml) Ud) 2.5 mg IH Q2H PRN PRN Reason: Shortness of Breath Albuterol/Ipratropium (Duoneb 3 Mg/0.5 Mg (3 Ml) Ud) 3 ml IH [id number] [facility] Last Admin: 11/28/16 08:01 Dose: 3 ml Bisacodyl (Dulcolax) 5 mg PO TID PRN PRN Reason: costipation Last Admin: 11/26/16 10:16 Dose: 5 mg Dexamethasone (Decadron Inj) 4 mg IVP Q6H [facility] Last Admin: 11/28/16 12:08 Dose: 4 mg Docusate Sodium (Colace) 100 mg PO BID [facility] Last Admin: 11/28/16 09:21 Dose: 100 mg Enoxaparin Sodium (Lovenox) 40 mg SC DAILY [facility] PRN Reason: Protocol Last Admin: 11/28/16 09:22 Dose: 40 mg Famotidine (Pepcid) 20 mg PO BID [facility] Last Admin: 11/28/16 09:21 Dose: 20 mg Fentanyl (Duragesic) 1 patch TD Q72H [facility] Last Admin: 11/28/16 09:24 Dose: 1 patch Lidocaine (Lidoderm) 2 ea TD DAILY [facility] Last Admin: 11/28/16 09:21 Dose: 2 ea Megestrol Acetate (Megace) 40 mg PO DAILY [facility] Last Admin: 11/28/16 10:44 Dose: 40 mg Methylnaltrexone [place] (Relistor) 8 mg SC DAILY PRN PRN Reason: Constipation Mirtazapine (Remeron) 15 mg PO HS [facility] Last Admin: 11/27/16 21:10 Dose: 15 mg Morphine Sulfate (Morphine) 2 mg IVP Q2H PRN PRN Reason: Pain, severe (8-10) Last Admin: 11/28/16 14:11 Dose: 2 mg Oxycodone HCl (Oxycodone Immediate Release Tab) 30 mg PO Q6 [facility] Last Admin: 11/28/16 12:12 Dose: 30 mg Pantoprazole Sodium (Protonix Ec Tab) 40 mg PO 0600 [facility] Last Admin: 11/28/16 05:06 Dose: 40 mg Polyethylene Glycol (Miralax) 17 gm PO DAILY [facility] Last Admin: 11/28/16 09:22 Dose: 17 gm Potassium Chloride (K-Dur 20 Meq Er Tab) 20 meq PO BRK [facility] Last Admin: 11/28/16 10:45 Dose: 20 meq Pregabalin (Lyrica) 75 mg PO TID [facility] Last Admin: 11/28/16 14:11 Dose: 75 mg Tizanidine HCl (Zanaflex) 4 mg PO Q6 [facility] Last Admin: 11/28/16 12:13 Dose: 4 mg - Labs Labs: 11/28/16 06:30 11/28/16 06:30 Attending/Attestation - Attestation I have personally seen and examined this patient.: Yes I have fully participated in the care of the patient.: Yes I have reviewed all pertinent clinical information, including history, physical exam and plan: Yes Notes (Text): 11/28/16 14:49 Patient was seen and examined with medical records director .Agreed with resident assessment and plan. 56 M with pmh of stage IV NSLC that is directly invading mechanically into the vertebral bodies between T3 and T6 admitted for intractable pain 2/2 to metastases to spine. MRI cervical spine showed mass in R lung apexthat invades adjacent T1 and T2 vertebral bodies and R sided pedicles & Lamina. Also invasion of R spinal erector mucsle up to C6.Pain is better controlled with Fentanyl patch TD Q72H 75mcg, oxycodone 30mg Q6H , and Lidocaine Patch and PRN Morphine.Neuro surgery evaluation is pending. Management plan was discussed in detail with patient Education was provided.
--- NOTE | 2016-11-28 15:06 | CP.PCM.PN ---
Subjective - Date & Time of Evaluation Date of Evaluation: 11/28/16 Time of Evaluation: 15:02 - Subjective Subjective: SPINE Reviewed MRI. No cord compression but R sided destruction of T2,T3 secondary to tumor. Discussed with oncology and he has received max RT. Could consider decompression and stabilization but pt is adamant about not having any surgery. Therefore will sign off and see pt again if condition changes. Thank you for allowing us to participate in the care of your pt. Objective - Vital Signs/Intake and Output Vital Signs (last 24 hours): Temp Pulse Resp BP Pulse Ox 98.9 F 80 20 100/58 L 98 11/28/16 08:50 11/28/16 08:50 11/28/16 08:50 11/28/16 08:50 11/28/16 08:50 Intake and Output: 11/28/16 11/28/16 06:59 18:59 Intake Total 900 360 Balance 900 360 - Medications Medications: Current Medications Acetaminophen (Tylenol 325mg Tab) 650 mg PO Q6H PRN PRN Reason: Fever >100.4 F Albuterol Sulfate (Albuterol 0.083% Inhal Gabriella (2.5 Mg/3 Ml) Ud) 2.5 mg IH Q2H PRN PRN Reason: Shortness of Breath Albuterol/Ipratropium (Duoneb 3 Mg/0.5 Mg (3 Ml) Ud) 3 ml IH [id number] [facility] Last Admin: 11/28/16 14:49 Dose: 3 ml Bisacodyl (Dulcolax) 5 mg PO TID PRN PRN Reason: costipation Last Admin: 11/26/16 10:16 Dose: 5 mg Dexamethasone (Decadron Inj) 4 mg IVP Q6H [facility] Last Admin: 11/28/16 12:08 Dose: 4 mg Docusate Sodium (Colace) 100 mg PO BID [facility] Last Admin: 11/28/16 09:21 Dose: 100 mg Enoxaparin Sodium (Lovenox) 40 mg SC DAILY [facility] PRN Reason: Protocol Last Admin: 11/28/16 09:22 Dose: 40 mg Famotidine (Pepcid) 20 mg PO BID [facility] Last Admin: 11/28/16 09:21 Dose: 20 mg Fentanyl (Duragesic) 1 patch TD Q72H [facility] Last Admin: 11/28/16 09:24 Dose: 1 patch Lidocaine (Lidoderm) 2 ea TD DAILY [facility] Last Admin: 11/28/16 09:21 Dose: 2 ea Megestrol Acetate (Megace) 40 mg PO DAILY [facility] Last Admin: 11/28/16 10:44 Dose: 40 mg Methylnaltrexone [place] (Relistor) 8 mg SC DAILY PRN PRN Reason: Constipation Mirtazapine (Remeron) 15 mg PO HS [facility] Last Admin: 11/27/16 21:10 Dose: 15 mg Morphine Sulfate (Morphine) 2 mg IVP Q2H PRN PRN Reason: Pain, severe (8-10) Last Admin: 11/28/16 14:11 Dose: 2 mg Oxycodone HCl (Oxycodone Immediate Release Tab) 30 mg PO Q6 [facility] Last Admin: 11/28/16 12:12 Dose: 30 mg Pantoprazole Sodium (Protonix Ec Tab) 40 mg PO 0600 [facility] Last Admin: 11/28/16 05:06 Dose: 40 mg Polyethylene Glycol (Miralax) 17 gm PO DAILY [facility] Last Admin: 11/28/16 09:22 Dose: 17 gm Potassium Chloride (K-Dur 20 Meq Er Tab) 20 meq PO BRK [facility] Last Admin: 11/28/16 10:45 Dose: 20 meq Pregabalin (Lyrica) 75 mg PO TID [facility] Last Admin: 11/28/16 14:11 Dose: 75 mg Tizanidine HCl (Zanaflex) 4 mg PO Q6 [facility] Last Admin: 11/28/16 12:13 Dose: 4 mg - Labs Labs: 11/28/16 06:30 11/28/16 06:30
--- NOTE | 2016-11-29 16:44 | CP.PCM.DIS ---
<Justice Nelson - Last Filed: 11/29/16 16:33> Provider - Provider Date of Admission: 11/27/16 11:25 Attending physician: Elisabet Kern MD Primary care physician: Gary Fermin MD Consults: Neville lakhani, Neurology, heme/onc, Rad/ onc Time Spent in preparation of Discharge (in minutes): 45 Hospital Course - Lab Results Lab Results: Most Recent Lab Values WBC 3.8 10^3/ul (4.5-11.0) L 11/28/16 06:30 RBC 3.25 10^6/uL (3.5-6.1) L 11/28/16 06:30 Hgb 9.7 gm/dL (14.0-18.0) L 11/28/16 06:30 Hct 29.9 % (42.0-52.0) L 11/28/16 06:30 MCV 92.0 fL (80.0-105.0) 11/28/16 06:30 MCH 29.8 pg (25.0-35.0) 11/28/16 06:30 MCHC 32.4 g/dl (31.0-37.0) 11/28/16 06:30 RDW 15.2 % (11.5-14.5) H 11/28/16 06:30 Plt Count 377 10^3/uL (120.0-450.0) 11/28/16 06:30 MPV 9.2 fl (7.0-11.0) 11/28/16 06:30 Gran % 64.7 % (50.0-68.0) 11/28/16 06:30 Lymph % (Auto) 22.8 % (22.0-35.0) 11/28/16 06:30 [place] % (Auto) 12.2 % (1.0-6.0) H 11/28/16 06:30 Eos % (Auto) 0.0 % (1.5-5.0) L 11/28/16 06:30 Baso % (Auto) 0.3 % (0.0-3.0) 11/28/16 06:30 Gran # 2.44 (1.4-6.5) 11/28/16 06:30 Lymph # 0.9 (1.2-3.4) L 11/28/16 06:30 [place] # 0.5 (0.1-0.6) 11/28/16 06:30 Eos # 0.0 (0.0-0.7) 11/28/16 06:30 Baso # 0.01 K/mm3 (0.0-2.0) 11/28/16 06:30 Neutrophils % (Manual) 48 % (50.0-70.0) L 11/27/16 06:00 Band Neutrophils % 3 % (0-2) H 11/27/16 06:00 Lymphocytes % (Manual) 33 % (22.0-35.0) 11/27/16 06:00 Monocytes % (Manual) 14 % (1.0-6.0) H 11/27/16 06:00 Eosinophils % (Manual) 1 % (0.0-3.0) 11/27/16 06:00 Basophils % (Manual) 1 % (0.0-1.0) 11/27/16 06:00 Platelet Evaluation Normal (NORMAL) 11/27/16 06:00 Sodium 137 mmol/L (132-148) 11/28/16 06:30 Potassium 4.0 mmol/L (3.6-5.0) 11/28/16 06:30 Chloride 102 mmol/L (95-110) 11/28/16 06:30 Carbon Dioxide 25 mmol/L (21-33) 11/28/16 06:30 Anion Gap 14 (10-20) 11/28/16 06:30 BUN 13 mg/dL (7-21) 11/28/16 06:30 Creatinine 0.6 mg/dL (0.5-1.4) 11/28/16 06:30 Est GFR ( Amer) > 60 11/28/16 06:30 Est GFR (Non-Af Amer) > 60 11/28/16 06:30 Random Glucose 137 mg/dL (70-110) H 11/28/16 06:30 Calcium 9.0 mg/dL (8.4-10.5) 11/28/16 06:30 Total Bilirubin 0.3 mg/dL (0.2-1.3) 11/28/16 06:30 AST 24 U/L (15-59) 11/28/16 06:30 ALT 26 U/L (7-56) 11/28/16 06:30 Alkaline Phosphatase 70 U/L (38-133) 11/28/16 06:30 Lactate Dehydrogenase 392 U/L (333-699) 11/26/16 03:45 Total Creatine Kinase 33 U/L (35-230) L 11/26/16 03:45 Troponin I < 0.01 ng/mL 11/26/16 03:45 Total Protein 6.9 g/dL (5.8-8.3) 11/28/16 06:30 Albumin 3.7 g/dL (3.0-4.8) 11/28/16 06:30 Globulin 3.2 gm/dL 11/28/16 06:30 Albumin/Globulin Ratio 1.1 (1.1-1.8) 11/28/16 06:30 - Hospital Course Hospital Course: 56yo male with 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 In the ED basic lab work was done. EKG showed NSR at 74bpm. Trop x [address] of cervical spine showed R apical mass invading the adjacent paraspinous soft tissues, C7, T1, T2 vertebral bodies and posterior elements, similar to prior imaging, soft tissue mass, extending into the bony canal less well demonstrated than on prior imaging. CT chest showed no PE, Medial R upper lobe mass invading the chest wall and spine, paraseptal emphysema. Heme onc was consulted. Pt was started on home pain regiment and morphine. Pt was admitted to floor for close observation. Rad/onc was consulted stated pt already treated with radiation, radiation no indicated at this time, recommend neuro sx eval. Heme/ onc consulted and stated pain control, recommend consulting pain management, Neuro sx, and neurology. Neurology consulted and stated ont Decadron, Lyrica, May benefit from debulking of the mass to release some of the pressure on the nerve root. Palliative Consult for recs- inc fentanyl patch to 75mcg, Cont oxycodone 30mg Q6H , Relistor as PRN basis. Has not spoken to his sisters about advance care planning as yet. MRI cervical spine showed mass in R lung apexthat invades adjacent T1 and T2 vertebral bodies and R sided pedicles & Lamina. Also invasion of R spinal erector muscle up to C6. Neuro surgery consulted and could consider decompression and stabilization but pt is adamant about not having sx. Today he states that his pain is much better controlled. No complaints at this time. Discharge Exam - Head Exam Head Exam: ATRAUMATIC, NORMAL INSPECTION, NORMOCEPHALIC - Eye Exam Eye Exam: EOMI, Normal appearance, PERRL Pupil Exam: Fixed - ENT Exam ENT Exam: Mucous Membranes Moist - Respiratory Exam Respiratory Exam: Clear to PA & Lateral. absent: Rales, Rhonchi, Wheezes - Cardiovascular Exam Cardiovascular Exam: REGULAR RHYTHM, RRR, +S1, +S2 - GI/Abdominal Exam GI & Abdominal Exam: Normal Bowel Sounds, Soft. absent: Tenderness - Extremities Exam Additional comments: Chronic R arm weakness - Neurological Exam Neurological exam: Alert, CN II-XII Intact, Normal Gait, Oriented x3, Reflexes Normal - Psychiatric Exam Psychiatric exam: Normal Affect, Normal Mood - Skin Skin Exam: Dry, Intact, Normal Color, Warm Discharge Plan - Discharge Medications Prescriptions: Dexamethasone [Decadron] See Taper PO ONCE 15 Days - Follow Up Plan Condition: IMPROVED Disposition: HOME/ ROUTINE Patient education suggested?: Yes Instructions: Chest Pain (DC), Chest Pain (GEN), Chronic Pain (DC) Additional Instructions: Follow up with your PMD with in 2-3 days. Follow up with Dr Leary with in 1-2 weeks. If your symptoms worsen come back to the closest ED. Take your medication as prescribed. You are prescribed Decadron: 4mg orally 3x/day x 3 days Friday11/29/16-Fri12/01/16 4mg orally 2x/day x 3 days Friday12/02/16-Fri12/04/16 4mg orally daily x 3 days 12/05/16-Fri12/07/16 2mg orally daily x 3 days Fri12/08/16-12/10/16 1mg orally daily x 3 days Fri12/11/16-Fri12/13/16 For a total of 15 days. Referrals: Gary Fermin MD [Primary Care Provider] - <Elisabet Kern MD - Last Filed: 11/29/16 16:59> Provider - Provider Date of Admission: 11/27/16 11:25 Attending physician: Elisabet Kern MD Primary care physician: Gary Fermin MD Hospital Course - Lab Results Lab Results: Most Recent Lab Values WBC 3.8 10^3/ul (4.5-11.0) L 11/28/16 06:30 RBC 3.25 10^6/uL (3.5-6.1) L 11/28/16 06:30 Hgb 9.7 gm/dL (14.0-18.0) L 11/28/16 06:30 Hct 29.9 % (42.0-52.0) L 11/28/16 06:30 MCV 92.0 fL (80.0-105.0) 11/28/16 06:30 MCH 29.8 pg (25.0-35.0) 11/28/16 06:30 MCHC 32.4 g/dl (31.0-37.0) 11/28/16 06:30 RDW 15.2 % (11.5-14.5) H 11/28/16 06:30 Plt Count 377 10^3/uL (120.0-450.0) 11/28/16 06:30 MPV 9.2 fl (7.0-11.0) 11/28/16 06:30 Gran % 64.7 % (50.0-68.0) 11/28/16 06:30 Lymph % (Auto) 22.8 % (22.0-35.0) 11/28/16 06:30 Hard[place] % (Auto) 12.2 % (1.0-6.0) H 11/28/16 06:30 Eos % (Auto) 0.0 % (1.5-5.0) L 11/28/16 06:30 Baso % (Auto) 0.3 % (0.0-3.0) 11/28/16 06:30 Gran # 2.44 (1.4-6.5) 11/28/16 06:30 Lymph # 0.9 (1.2-3.4) L 11/28/16 06:30 [place] # 0.5 (0.1-0.6) 11/28/16 06:30 Eos # 0.0 (0.0-0.7) 11/28/16 06:30 Baso # 0.01 K/mm3 (0.0-2.0) 11/28/16 06:30 Neutrophils % (Manual) 48 % (50.0-70.0) L 11/27/16 06:00 Band Neutrophils % 3 % (0-2) H 11/27/16 06:00 Lymphocytes % (Manual) 33 % (22.0-35.0) 11/27/16 06:00 Monocytes % (Manual) 14 % (1.0-6.0) H 11/27/16 06:00 Eosinophils % (Manual) 1 % (0.0-3.0) 11/27/16 06:00 Basophils % (Manual) 1 % (0.0-1.0) 11/27/16 06:00 Platelet Evaluation Normal (NORMAL) 11/27/16 06:00 Sodium 137 mmol/L (132-148) 11/28/16 06:30 Potassium 4.0 mmol/L (3.6-5.0) 11/28/16 06:30 Chloride 102 mmol/L (95-110) 11/28/16 06:30 Carbon Dioxide 25 mmol/L (21-33) 11/28/16 06:30 Anion Gap 14 (10-20) 11/28/16 06:30 BUN 13 mg/dL (7-21) 11/28/16 06:30 Creatinine 0.6 mg/dL (0.5-1.4) 11/28/16 06:30 Est GFR ( Amer) > 60 11/28/16 06:30 Est GFR (Non-Af Amer) > 60 11/28/16 06:30 Random Glucose 137 mg/dL (70-110) H 11/28/16 06:30 Calcium 9.0 mg/dL (8.4-10.5) 11/28/16 06:30 Total Bilirubin 0.3 mg/dL (0.2-1.3) 11/28/16 06:30 AST 24 U/L (15-59) 11/28/16 06:30 ALT 26 U/L (7-56) 11/28/16 06:30 Alkaline Phosphatase 70 U/L (38-133) 11/28/16 06:30 Lactate Dehydrogenase 392 U/L (333-699) 11/26/16 03:45 Total Creatine Kinase 33 U/L (35-230) L 11/26/16 03:45 Troponin I < 0.01 ng/mL 11/26/16 03:45 Total Protein 6.9 g/dL (5.8-8.3) 11/28/16 06:30 Albumin 3.7 g/dL (3.0-4.8) 11/28/16 06:30 Globulin 3.2 gm/dL 11/28/16 06:30 Albumin/Globulin Ratio 1.1 (1.1-1.8) 11/28/16 06:30 Attending/Attestation - Attestation I have personally seen and examined this patient.: Yes I have fully participated in the care of the patient.: Yes I have reviewed all pertinent clinical information, including history, physical exam and plan: Yes Notes (Text): 11/29/16 16:53 Patient was seen and examined with bacteriologist medical .Agreed with resident assessment and plan. 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 MRI cervical spine showed mass in R lung apexthat invades adjacent T1 and T2 vertebral bodies and R sided pedicles & Lamina. Also invasion of R spinal erector mucsle up to C6.Pain is better controlled with Fentanyl patch TD Q72H 75mcg, oxycodone 30mg Q6H , and Lidocaine Patch and PRN Morphine.Neuro surgery evaluated the patient, patient has refused surgery, the risk was discussed with him in detail.Patient pain is better, he wants to go home.He will be discharged home on tapering dose of steroid and will follow up with . Prognosis is guarded. Management plan was discussed in detail with patient Education was provided. 11/29/16 16:58
== END 2016-11-28 18:56 | disposition home or self-care (01) | DRG 948 ==
LOC: ED 18:24 → ERH 23:38 → 2RSO 11-26 03:41 → 3RSO 11-26 21:40 → OBSVTOIN 11-27 11:25
PROVIDERS: ADMIT Internal Medicine; ATTEND Internal Medicine
DX: G89.3 Neoplasm related pain (acute) (chronic) (principal); R64 Cachexia; C79.51 Secondary malignant neoplasm of bone; C34.91 Malignant neoplasm of unspecified part of right bronchus or lung; J44.9 Chronic obstructive pulmonary disease, unspecified; Z68.1 Body mass index [BMI] 19.9 or less, adult; F32.9 Major depressive disorder, single episode, unspecified; G47.9 Sleep disorder, unspecified; K59.03 Drug induced constipation; T40.2X5A Adverse effect of other opioids, initial encounter; F17.200 Nicotine dependence, unspecified, uncomplicated; Z88.0 Allergy status to penicillin

== ENCOUNTER 2016-12-14 09:26 | Emergency (ER) | payer MEDICARE, OTHER ==
[2016-12-14 09:26] VITALS: BMI 20.1
[2016-12-14] MEDS ORDERED: HYDROmorphone 2 mg/ml ISec IVP STA ×2 (10:09→12:02)
--- NOTE | 2016-12-14 10:21 | ED PDOC ---
Arrival/HPI - General Chief Complaint: Lower Extremity Problem/Injury Time Seen by Provider: 12/14/16 10:00 Historian: Patient, Family (Sister) - History of Present Illness Narrative History of Present Illness (Text): 12/14/16 10:00 Marc Tate is a 56 year old male, whose past medical history includes Stage IV lung cancer with metastasis, who presents to the emergency department complaining of bilateral pedal edema for 1 day. Patient states that he also experiences right-sided neck, shoulder, back, and arm pain due to a tumor impressing on his spine for a few months now. Patient says the he cannot sleep due to the pain. Patient's sister states that patient is on prescribed oxycodone which he took this morning. Patient's sister also notes that patient is undergoing chemotherapy and his last session was three days ago. Patient denies any recent medication change, fevers, chest pain, shortness of breath, or any other complaint at this time. Time/Duration: 24 hours Symptom Onset: Gradual Symptom Course: Unchanged Severity Level: Mild Activities at Onset: Rest Context: Home Past Medical History - Provider Review Nursing Documentation Reviewed: Yes - Infectious Disease Hx of Infectious Diseases: None - Cardiac Hx Cardiac Disorders: No - Pulmonary Hx Respiratory Disorders: Yes Hx Chronic Obstructive Pulmonary Disease (COPD): Yes Hx Lung Cancer: Yes (newly diagnosed) Other/Comment: Stage 4 lung cancer - Neurological Hx Neurological Disorder: No - HEENT Hx HEENT Disorder: No - Renal Hx Renal Disorder: No - Endocrine/Metabolic Hx Endocrine Disorders: No - Hematological/Oncological Hx Blood Disorders: Yes Hx Cancer: Yes (lung) Hx Metastasis: Yes - Integumentary Hx Dermatological Disorder: No - Musculoskeletal/Rheumatological Hx Musculoskeletal Disorders: Yes Hx Back Pain: Yes - Gastrointestinal Hx Gastrointestinal Disorders: No - Genitourinary/Gynecological Hx Genitourinary Disorders: No - Psychiatric Hx Psychophysiologic Disorder: Yes Hx Depression: Yes Hx Substance Use: No - Surgical History Hx Musculoskeletal Surgery: Yes (plate placed in back) Hx Orthopedic Surgery: Yes (R shoulder) Other/Comment: L upper arm port - Anesthesia Hx Anesthesia: Yes Family/Social History - Physician Review Nursing Documentation Reviewed: Yes Family/Social History: No Known Family HX Smoking Status: Former Smoker Hx Alcohol Use: No Hx Substance Use: No Allergies/Home Meds Allergies/Adverse Reactions: Allergies Penicillins Allergy (Verified 12/14/16 09:46) ANAPHYLAXIS Home Medications: Home Meds Medication Instructions Recorded Confirmed oxyCODONE [oxyCODONE Immediate 30 mg PO Q6 PRN 11/03/16 12/11/16 Release Tab] tiZANidine [Zanaflex] 4 mg PO Q6 11/03/16 12/14/16 LORazepam [Ativan] 1 tab PO BID 12/11/16 12/14/16 Montelukast Sodium [Singulair] 1 tab PO DAILY 12/11/16 12/14/16 Prochlorperazine 10 mg PO Q8H 12/11/16 12/14/16 fentaNYL 50 mcg/hr [Duragesic 175 mcg TD Q72H 12/11/16 12/14/16 Patch 50 mcg/hr] Pregabalin [Lyrica] 100 mg PO TID 12/14/16 12/14/16 Review of Systems - Physician Review All systems were reviewed & negative as marked: Yes - Review of Systems Constitutional: Other (Right-sided body pain). absent: Fevers, Night Sweats Eyes: absent: Vision Changes ENT: absent: Hearing Changes Respiratory: absent: SOB, Cough Cardiovascular: absent: Chest Pain Gastrointestinal: absent: Abdominal Pain Genitourinary Male: absent: Dysuria, Frequency Skin: Other (bilateral pedal edema). absent: Rash Neurological: absent: Headache Endocrine: absent: Diaphoresis Hemo/Lymphatic: absent: Adenopathy Psychiatric: absent: Depression Physical Exam - Physical Exam Narrative Physical Exam (Text): Constitutional: No acute distress. Head: Normocephalic. Atraumatic. Eyes: PERRL. ENT: Moist mucous membranes. Neck: Supple. Cardiovascular: Regular rate. Chest: No tenderness. Respiratory: Clear to auscultation bilaterally. GI: Soft. Nontender. Nondistended. Back: No CVA tenderness. Musculoskeletal: Bilateral pitting edema. Skin: No rash. Neurologic: Alert, no focal deficit. Vital Signs Reviewed: Yes Vital Signs Temp Pulse Resp BP Pulse Ox 12/14/16 13:16 72 16 114/72 98 12/14/16 11:27 78 18 124/76 97 12/14/16 09:45 98.2 F 90 16 118/72 97 Temperature: Afebrile Blood Pressure: Normal Pulse: Regular Respiratory Rate: Normal Appearance: Positive for: Well-Appearing, Non-Toxic, Comfortable Pain Distress: None Mental Status: Positive for: Alert and Oriented X 3 Medical Decision Making ED Course and Treatment: 12/14/16 10:00 Impression: 56 year old male complaining of bilateral pitting edema for one day and right- sided body pain for a few months. Plan: -- EKG -- Chest X-ray -- Bilateral LE US -- Urinalysis -- Labs -- Reassess and disposition Prior Visits: Notes and results from previous visits were reviewed. Patient last seen in the ED on 11/25/16 for acute on chronic right sided neck pain that radiated to the right upper extremity. Patient was admitted to hospitalist for further evaluation. Progress Notes: 12/14/16 11:10 Chest X-ray: Dictator : Gary Barrow MD FINDINGS: LUNGS: Previously noted right apical and upper lobe mass density again noted though less well seen compared to high-resolution CTA chest. There are areas of curvilinear chronic atelectasis and or scarring right upper lung field as well. Minor linear atelectasis/ scarring left lung upper lobe. Significant at emphysematous changes upper lobe predominance In situ right left-sided PICC line with tip in the SVC/RA junction. PLEURA:No significant pleural effusion identified, no pneumothorax apparent. CARDIOVASCULAR:Heart size normal. OSSEOUS STRUCTURES: Destructive changes of the 1st, 2nd well as 3rd ribs and lateral margins of the T1, T2 and probably the T3 vertebral bodies with some involvement of the right parasagittal C7 spinous process also poorly seen compared high-resolution CT scan. VISUALIZED UPPER ABDOMEN:Normal. OTHER FINDINGS:None. IMPRESSION: Right upper lobe and apical on mass density within destructive changes of the upper ribs and lateral margins of C7, T1-T2 and probably T3 segments. Emphysematous changes and scarring. 12/14/16 11:48 Reviewed radiology, doppler negative for DVT. I discussed case with Dr. Leary who instructed patient to come to ER. Patient was previously on fentanyl patch, oxycodone, etc and was found to be somnolent so fentanyl recently discontinued. He was called by family due to chronic pain and was instructed to place a lesser dose fentanyl patch and come to ER for acute pain control. The patient was given 2 doses of hydromorphone. The patient felt better at reassessment and wishes to go home and states he will see Dr. Leary in office soon. - Lab Interpretations Lab Results: 12/14/16 10:46 12/14/16 10:46 Lab Results 12/14/16 10:46: Sodium 133, Potassium 3.5 L, Chloride 97, Carbon Dioxide 26, Anion Gap 14, BUN 18, Creatinine 0.6, Est GFR ( Amer) > 60, Est GFR (Non- Af Amer) > 60, Random Glucose 103, Calcium 8.0 L, Total Bilirubin 0.8, AST 28, ALT 39, Alkaline Phosphatase 68, Total Protein 5.7 L, Albumin 3.2, Globulin 2.5 , Albumin/Globulin Ratio 1.2 12/14/16 10:46: WBC 16.5 H, RBC 3.40 L, Hgb 10.6 L, Hct 32.4 L, MCV 95.3, MCH 31.2, MCHC 32.7, RDW 16.4 H, Plt Count 185, MPV 9.7, Gran % 94.4 H, Lymph % ( Auto) 4.7 L, Gove % (Auto) 0.5 L, Eos % (Auto) 0.4 L, Baso % (Auto) 0.0, Gran # 15.54 H, Lymph # 0.8 L, Gove # 0.1, Eos # 0.1, Baso # 0.00 I have reviewed the lab results: Yes - RAD Interpretation Radiology Orders: 12/14/16 10:09 CHEST PORTABLE [RAD] Stat DUPLEX LOWER EXTRM VEIN BILAT [US] Stat - Medication Orders Current Medication Orders: Discontinued Medications Hydromorphone HCl (Dilaudid) 2 mg IVP STAT STA Stop: 12/14/16 10:10 Last Admin: 12/14/16 10:30 Dose: 2 mg Re-Assess: REHAN Pain Assessment Document 12/14/16 11:30 [facility] (Rec: 12/14/16 11:45 [facility]-[id number]) Pain Reassessment Is this a pain reassessment? Yes Sleep Is patient sleeping during reassessment? Yes Pain Scale Used Pain Scale Used Numeric Location Left, Right or Bilateral Bilateral Upper or Lower Lower Pain Location Body Site Generalized Hydromorphone HCl (Dilaudid) 2 mg IVP STAT STA Stop: 12/14/16 12:03 Last Admin: 12/14/16 12:12 Dose: 2 mg - Scribe Statement The provider has reviewed the documentation as recorded by the Yesy Lawrence Provider Yesy Attestation: All medical record entries made by the Elhamibe were at my direction and personally dictated by me. I have reviewed the chart and agree that the record accurately reflects my personal performance of the history, physical exam, medical decision making, and the department course for this patient. I have also personally directed, reviewed, and agree with the discharge instructions and disposition. Disposition/Present on Arrival - Present on Arrival Any Indicators Present on Arrival: No History of DVT/PE: No History of Uncontrolled Diabetes: No Urinary Catheter: No History of Decub. Ulcer: No History Surgical Site Infection Following: None - Disposition Have Diagnosis and Disposition been Completed?: Yes Diagnosis: Chronic pain Disposition: HOME/ ROUTINE Disposition Time: 12:20 Patient Plan: Discharge Condition: STABLE Discharge Instructions (ExitCare): Chronic Pain (ED) Referrals: Lizzie Leary MD [Staff Provider] - Follow up with primary
[2016-12-14 11:03] LABS: ALB/GLOB RATIO 1.2 (1.1-1.8); ALBUMIN 3.2 g/dL (3.0-4.8); ALT/SGPT 39 U/L (7-56); AST/SGOT 28 U/L (15-59); BLOOD UREA NITROGEN 18 mg/dL (7-21); GFR AFRICAN-AMERICAN > 60; GFR NON-AFRICAN AMERICAN > 60
--- NOTE | 2016-12-14 11:07 | RAD ---
HISTORY: pedal edema, h/o lung cancer COMPARISON: Comparison made with radiographs and CTA chest dated 11/03/2016 and 11/25/2016 respectively. FINDINGS: LUNGS: Previously noted right apical and upper lobe mass density again noted though less well seen compared to high-resolution CTA chest. There are areas of curvilinear chronic atelectasis and or scarring right upper lung field as well. Minor linear atelectasis/ scarring left lung upper lobe. Significant at emphysematous changes upper lobe predominance In situ right left-sided PICC line with tip in the SVC/RA junction. PLEURA: No significant pleural effusion identified, no pneumothorax apparent. CARDIOVASCULAR: Heart size normal. OSSEOUS STRUCTURES: Destructive changes of the 1st, 2nd well as 3rd ribs and lateral margins of the T1, T2 and probably the T3 vertebral bodies with some involvement of the right parasagittal C7 spinous process also poorly seen compared high-resolution CT scan. VISUALIZED UPPER ABDOMEN: Normal. OTHER FINDINGS: None. IMPRESSION: Right upper lobe and apical on mass density within destructive changes of the upper ribs and lateral margins of C7, T1-T2 and probably T3 segments. Emphysematous changes and scarring.
[2016-12-14 11:13] LABS: EOS # 0.1 (0.0-0.7); EOS % 0.4 % (1.5-5.0); GRAN # 15.54 (1.4-6.5); GRAN % 94.4 % (50.0-68.0); HEMOGLOBIN 10.6 gm/dL (14.0-18.0); LYMPH # 0.8 (1.2-3.4); LYMPH % 4.7 % (22.0-35.0); MEAN CELL VOLUME 95.3 fL (80.0-105.0); MEAN CORPUSCULAR HEMOGLOBIN 31.2 pg (25.0-35.0); MEAN CORPUSCULAR HGB CONC 32.7 g/dl (31.0-37.0); MEAN PLATELET VOLUME 9.7 fl (7.0-11.0); MONO # 0.1 (0.1-0.6); MONO % 0.5 % (1.0-6.0); PLATELET COUNT 185 10^3/uL (120.0-450.0); RED CELL DISTRIBUTION WIDTH 16.4 % (11.5-14.5); WHITE BLOOD COUNT 16.5 10^3/ul (4.5-11.0)
[2016-12-14 12:49] VITALS: TEMP 98.2
[2016-12-14 13:17] VITALS: BP 114/72; PULSE 72; RESP 16; O2SAT 98
--- NOTE | 2016-12-14 14:33 | US ---
HISTORY: Leg pain and swelling. Evaluate for DVT PHYSICIAN(S): Matthew Booth MD. TECHNIQUE: Duplex sonography and color-flow Doppler with graded compression were used to evaluate the deep venous systems of both lower extremities. FINDINGS: The visualized deep venous systems of both lower extremities are sonographically normal and compressible. Normal wave forms and augmentation are seen. There is no sonographic evidence for deep venous thrombosis in the visualized segments of both lower extremities. IMPRESSION: No sonographic evidence for deep venous thrombosis in the visualized segments of both lower extremities.
--- NOTE | 2016-12-14 19:05 | CARD ---
APPROVED REPORT EKG Measurement Heart [id number] <Conclusion> Normal sinus rhythm Possible Left atrial enlargement Borderline ECG
== END 2016-12-14 13:17 | disposition home or self-care (01) ==
LOC: ED 09:26
DX: G89.29 Other chronic pain (principal); Z85.118 Personal history of other malignant neoplasm of bronchus and lung; Z87.891 Personal history of nicotine dependence
CPT/HCPCS: 71010; 80053; 85025; 93005; 93970; 96374; 96376; 99284; J1170

== ENCOUNTER 2016-12-30 13:50 | Inpatient (IN) | payer MEDICARE, MEDICAID ==
[2016-12-30 14:24] VITALS: BMI 19.3
[2016-12-30] MEDS ORDERED: Sodium Chloride 0.9% 1,000 ML IV ONE (14:49)
[2016-12-30] MEDS ORDERED: Morphine 4 mg/ml ISec IVP STA (14:51)
--- NOTE | 2016-12-30 15:11 | ED PDOC ---
Arrival/HPI - General Chief Complaint: Lower Extremity Problem/Injury Time Seen by Provider: 12/30/16 14:27 Historian: Patient, Family - History of Present Illness Narrative History of Present Illness (Text): 12/30/16 14:50 Marc Tate is a 56 year old male, whose past medical history includes Stage IV lung cancer with metastasis, who presents to the emergency department complaining of bilateral leg swelling that began last night along with a rash. Patient also reports he has chronic neck pain that radiates to the right shoulder that began a while back, but for the past 3 days has been feeling numbness and weakness, which is intermittent. In addition to this, patient reports coughing and beginning antibiotic treatment yesterday. Patient notes that Dr. Fermin advised him to come for the bilateral leg swelling. Patient denies chest pain, shortness of breath, headache, chills, cough, nausea, vomiting, diarrhea, abdominal pain, or other complaints. PMD: Dr. Fermin Time/Duration: 24 hours Symptom Onset: Sudden Symptom Course: Unchanged Activities at Onset: Rest Modifying Factors (Text): None Context: Home Associated Symptoms (Text): neck pain, right shoulder pain, coughing Past Medical History - Provider Review Nursing Documentation Reviewed: Yes - Infectious Disease Hx of Infectious Diseases: None - Cardiac Hx Cardiac Disorders: No - Pulmonary Hx Respiratory Disorders: Yes Hx Chronic Obstructive Pulmonary Disease (COPD): Yes Hx Lung Cancer: Yes (newly diagnosed) Other/Comment: Stage 4 lung cancer - Neurological Hx Neurological Disorder: No - HEENT Hx HEENT Disorder: No - Renal Hx Renal Disorder: No - Endocrine/Metabolic Hx Endocrine Disorders: No - Hematological/Oncological Hx Blood Disorders: Yes - Integumentary Hx Dermatological Disorder: No - Musculoskeletal/Rheumatological Hx Musculoskeletal Disorders: Yes - Gastrointestinal Hx Gastrointestinal Disorders: No - Genitourinary/Gynecological Hx Genitourinary Disorders: No - Psychiatric Hx Psychophysiologic Disorder: Yes Hx Depression: Yes Hx Substance Use: No - Surgical History Hx Musculoskeletal Surgery: Yes (plate placed in back) Hx Orthopedic Surgery: Yes (R shoulder) Other/Comment: L upper arm port - Anesthesia Hx Anesthesia: Yes Family/Social History - Physician Review Nursing Documentation Reviewed: Yes Family/Social History: Unknown Family HX Smoking Status: Former Smoker Hx Alcohol Use: No Hx Substance Use: No Allergies/Home Meds Allergies/Adverse Reactions: Allergies Penicillins Allergy (Verified 12/30/16 14:26) ANAPHYLAXIS Home Medications: Home Meds Medication Instructions Recorded Confirmed oxyCODONE [oxyCODONE Immediate 30 mg PO Q6 PRN 11/03/16 12/30/16 Release Tab] tiZANidine [Zanaflex] 4 mg PO Q6 11/03/16 12/30/16 fentaNYL 50 mcg/hr [Duragesic 125 mcg TD Q72H 12/11/16 12/30/16 Patch 50 mcg/hr] Cholecalciferol [Vitamin D] 0 iu PO QWK 12/30/16 12/30/16 Folic Acid 1 mg PO DAILY 12/30/16 12/30/16 Furosemide [Lasix] 20 mg PO DAILY 12/30/16 12/30/16 Gabapentin [Neurontin] 300 mg PO QID 12/30/16 12/30/16 Lidocaine Oinment 5% 12/30/16 Megestrol Acetate [Megace] 40 mg PO BID 12/30/16 12/30/16 Montelukast [Singulair] 10 mg PO DAILY 12/30/16 12/30/16 Nystatin [Nystatin Oral Susp] 100,000 unit PO TID 12/30/16 12/30/16 Review of Systems - Physician Review All systems were reviewed & negative as marked: Yes - Review of Systems Respiratory: Cough. absent: SOB Cardiovascular: absent: Chest Pain Gastrointestinal: absent: Abdominal Pain Musculoskeletal: Neck Pain, Other (right shoulder pain. ) Skin: Rash (bilateral legs) Physical Exam Vital Signs Temp Pulse Resp BP Pulse Ox 12/30/16 17:25 96 H 18 117/71 100 12/30/16 14:23 98.1 F 95 H 18 136/77 100 Temperature: Afebrile Blood Pressure: Normal Pulse: Tachycardic Respiratory Rate: Normal Appearance: Positive for: Well-Appearing, Non-Toxic, Comfortable Pain Distress: None Mental Status: Positive for: Alert and Oriented X 3 - Systems Exam Head: Present: Atraumatic, Normocephalic Pupils: Present: PERRL Extroacular Muscles: Present: EOMI Conjunctiva: Present: Normal Mouth: Present: Moist Mucous Membranes Neck: Present: Normal Range of Motion, Other (right side tenderness) Respiratory/Chest: Present: Clear to Auscultation, Good Air Exchange. No: Respiratory Distress, Accessory Muscle Use Cardiovascular: Present: Regular Rate and Rhythm, Normal S1, S2. No: Murmurs Abdomen: Present: Normal Bowel Sounds. No: Tenderness, Distention, Peritoneal Signs Back: Present: Normal Inspection Upper Extremity: Present: Normal Inspection, Tenderness (right shoulder), Other (decreased strength of motion on right arm). No: Cyanosis, Edema Lower Extremity: Present: Edema (bilateral), Tenderness (bilateral tenderness), Other (bilateral petechiae) Neurological: Present: GCS=15, CN II-XII Intact, Speech Normal Skin: Present: Warm, Dry, Normal Color. No: Rashes Psychiatric: Present: Alert, Oriented x 3, Normal Insight, Normal Concentration Medical Decision Making ED Course and Treatment: 12/30/16 14:50 Impression: 56 year old male with bilateral leg swelling, chronic neck and right shoulder pain, and coughing. Differential Diagnosis included but are not limited to: rash lower extremity swelling r/o sepsis. chronic shoulder strain vs. disc herniation Plan: -- EKG -- Chest X-ray -- Labs -- Urinalysis -- Morphine and Sodium Chloride -- Reassess and disposition Prior Visits: Notes and results from previous visits were reviewed. Patient was last seen in the emergency department on 12/14/2016. PET CT scan and Ultrasound was negative for DVT on 12/17/2016. Progress Notes: EKG: Ordered, reviewed, and independently interpreted the EKG. Rate : 88 BPM Rhythm : NSR Interpretation : with LVH no changes from previous EKG. Comparison : 12/14/2016 12/30/16 16:40 Chest X-ray: Creator : Dominga Cohn MD COMPARISON: 12/14/2016 FINDINGS: The left PICC line terminates at the cavoatrial junction. LUNGS:There is redemonstration of mass in the right upper lobe. There are diffuse increased markings in both lungs. The lungs are hyperinflated with peribronchial thickening. PLEURA:No significant pleural effusion identified, no pneumothorax apparent. CARDIOVASCULAR:Normal. OSSEOUS STRUCTURES:There are radiolucent lesions in the posterior ribs and a distal vertebral bodies at T1, T2 and T8. VISUALIZED UPPER ABDOMEN:Normal. OTHER FINDINGS:None. IMPRESSION: 1. No change in known right upper lobe mass with direct extension into the posterior elements at T1 T2, T3. 2. COPD. 12/30/2016 17:[address] Jeny MD who is aware of the plan and patient's lower extremity rash/cellulitis. He will admit and follow up with the patient. Vancomycin IV ordered for possible cellultis. Case also discussed with Dr. Leary. 12/30/16 17:54 Patient has required Morphine x 3 and Dilaudid x 1 dose for pain control. - Lab Interpretations Lab Results: 12/30/16 15:20 12/30/16 15:20 Lab Results 12/30/16 15:40: pO2 165 H, VBG pH 7.47 H, VBG pCO2 31.0 L, VBG HCO3 22.6, VBG Total CO2 23.6, VBG O2 Sat (Calc) 97.0 H, VBG Base Excess -0.7 L, VBG Potassium 3.4 L, Glucose 122 H, Lactate 1.1, FiO2 21.0, Sodium 132.0, Chloride 103.0, Venous Blood Potassium 3.4 L 12/30/16 15:20: Sodium 132, Potassium 3.3 L, Chloride 97 L, Carbon Dioxide 24, Anion Gap 14, BUN 10, Creatinine 0.5, Est GFR ( Amer) > 60, Est GFR (Non- Af Amer) > 60, Random Glucose 138 H, Calcium 8.5, Phosphorus 3.1, Magnesium 2.1 , Total Bilirubin 0.5, AST 50, ALT 46, Alkaline Phosphatase 82, Troponin I < 0.01, NT-Pro-B Natriuret Pep 69.8, Total Protein 7.1, Albumin 3.5, Globulin 3.7 , Albumin/Globulin Ratio 0.9 L 12/30/16 15:20: PT 12.0 H, INR 1.11 H, APTT 35.9 H 12/30/16 15:20: WBC 8.5 D, RBC 2.96 L, Hgb 9.1 L, Hct 26.8 L, MCV 90.5, MCH 30.7, MCHC 34.0, RDW 15.9 H, Plt Count 376, MPV 9.0, Gran % 73.6 H, Lymph % ( Auto) 14.3 L, Bureau % (Auto) 11.7 H, Eos % (Auto) 0.2 L, Baso % (Auto) 0.2, Gran # 6.22, Lymph # 1.2, Bureau # 1.0 H, Eos # 0.0, Baso # 0.02, ESR 142 H I have reviewed the lab results: Yes - RAD Interpretation Radiology Orders: 12/30/16 14:49 CHEST PORTABLE [RAD] Stat - EKG Interpretation Interpreted by ED Physician: Yes Type: 12 lead EKG - Medication Orders Current Medication Orders: Vancomycin HCl (Vancomycin 1gm) 1 gm in 250 mls @ 167 mls/hr IVPB STAT STA PRN Reason: Protocol Stop: 12/30/16 18:23 Discontinued Medications Hydromorphone HCl (Dilaudid) 1 mg IVP STAT STA Stop: 12/30/16 17:32 Last Admin: 12/30/16 17:43 Dose: 1 mg Sodium Chloride (Sodium Chloride 0.9%) 1,000 mls @ 2,000 mls/hr IV .Q30M ONE Stop: 12/30/16 15:18 Last Admin: 12/30/16 15:14 Dose: 2,000 mls/hr Morphine Sulfate (Morphine) 4 mg IVP STAT STA Stop: 12/30/16 14:52 Last Admin: 12/30/16 15:14 Dose: 4 mg Morphine Sulfate (Morphine) 6 mg IVP STAT STA Stop: 12/30/16 15:45 Last Admin: 12/30/16 15:51 Dose: 6 mg Potassium Chloride (K-Dur 20 Meq Er Tab) 40 meq PO STAT STA Stop: 12/30/16 16:00 Last Admin: 12/30/16 16:32 Dose: 40 meq - Scribe Statement The provider has reviewed the documentation as recorded by the Scribe 12/30/2016 Trinh Morales Provider Scribe Attestation: All medical record entries made by the Scribe were at my direction and personally dictated by me. I have reviewed the chart and agree that the record accurately reflects my personal performance of the history, physical exam, medical decision making, and the department course for this patient. I have also personally directed, reviewed, and agree with the discharge instructions and disposition. Disposition/Present on Arrival - Present on Arrival Any Indicators Present on Arrival: No History of DVT/PE: No History of Uncontrolled Diabetes: No Urinary Catheter: No History of Decub. Ulcer: No History Surgical Site Infection Following: None - Disposition Have Diagnosis and Disposition been Completed?: Yes Diagnosis: Lung cancer, Neck pain, Cellulitis, Petechiae Disposition Time: 16:55 Patient Plan: Admission Patient Problems: Current Active Problems Problem Status Onset Cellulitis Acute Lung cancer Acute Neck pain Acute Petechiae Acute Condition: FAIR
[2016-12-30 15:34] LABS: ADD MANUAL DIFF? NO
[2016-12-30 15:43] LABS: BASO # 0.02 K/mm3 (0.0-2.0); BASO % 0.2 % (0.0-3.0); EOS % 0.2 % (1.5-5.0); GRAN # 6.22 (1.4-6.5); GRAN % 73.6 % (50.0-68.0); HEMATOCRIT 26.8 % (42.0-52.0); LYMPH # 1.2 (1.2-3.4); LYMPH % 14.3 % (22.0-35.0); MEAN CELL VOLUME 90.5 fL (80.0-105.0); MEAN CORPUSCULAR HEMOGLOBIN 30.7 pg (25.0-35.0); MONO % 11.7 % (1.0-6.0); PLATELET COUNT 376 10^3/uL (120.0-450.0); RED CELL DISTRIBUTION WIDTH 15.9 % (11.5-14.5); WHITE BLOOD COUNT 8.5 10^3/ul (4.5-11.0)
[2016-12-30 15:48] LABS: INR 1.11 (0.93-1.08); PARTIAL THROMBOPLASTIN TIME 35.9 Seconds (23.7-30.8)
[2016-12-30 15:55] LABS: ALB/GLOB RATIO 0.9 (1.1-1.8); ALKALINE PHOSPHATASE 82 U/L (38-133); ALT/SGPT 46 U/L (7-56); AST/SGOT 50 U/L (15-59); BILIRUBIN,TOTAL 0.5 mg/dL (0.2-1.3); BLOOD UREA NITROGEN 10 mg/dL (7-21); CALCIUM 8.5 mg/dL (8.4-10.5); CARBON DIOXIDE 24 mmol/L (21-33); CHLORIDE 97 mmol/L (98-107); GFR AFRICAN-AMERICAN > 60; GLUCOSE,RANDOM 138 mg/dL (70-110); MAGNESIUM 2.1 mg/dL (1.7-2.2); PHOSPHOROUS 3.1 mg/dL (2.5-4.5); POTASSIUM 3.3 mmol/L (3.6-5.0); SODIUM 132 mmol/L (132-148); TOTAL PROTEIN 7.1 g/dL (5.8-8.3)
[2016-12-30 15:56] LABS: VENOUS BLOOD GAS BASE EXCESS -0.7 mmol/L (0.0-2.0); VENOUS BLOOD PH 7.47 (7.32-7.43)
[2016-12-30] MEDS ORDERED: Potassium Chloride 20 mEq ER Tab PO STA (15:59)
[2016-12-30 16:09] LABS: TROPONIN I < 0.01 ng/mL
--- NOTE | 2016-12-30 16:35 | RAD ---
HISTORY: Sepsis Patient COMPARISON: 12/14/2016 FINDINGS: The left PICC line terminates at the cavoatrial junction. LUNGS: There is redemonstration of mass in the right upper lobe. There are diffuse increased markings in both lungs. The lungs are hyperinflated with peribronchial thickening. PLEURA: No significant pleural effusion identified, no pneumothorax apparent. CARDIOVASCULAR: Normal. OSSEOUS STRUCTURES: There are radiolucent lesions in the posterior ribs and a distal vertebral bodies at T1, T2 and T8. VISUALIZED UPPER ABDOMEN: Normal. OTHER FINDINGS: None. IMPRESSION: 1. No change in known right upper lobe mass with direct extension into the posterior elements at T1 T2, T3. 2. COPD.
[2016-12-30 16:54] LABS: ERYTHROCYTE SEDIMENTATION RATE 142 mm/hr (0.00-15.0)
[2016-12-30] MEDS ORDERED: Vancomycin 1gm in NS 250ml 1 GM/250 ML BAG IVPB STA (16:54)
[2016-12-30] MEDS ORDERED: HYDROmorphone 1 mg/ml ISec IVP STA ×2 (17:31→19:21)
[2016-12-30 18:21] LABS: PH,URINE 6.5 (4.7-8.0); URINE BILIRUBIN NEGATIVE (NEGATIVE); URINE BLOOD SMALL (NEGATIVE); URINE GLUCOSE (UA) NEGATIVE (NEGATIVE); URINE KETONE NEGATIVE (NEGATIVE); URINE LEUKOCYTE ESTERASE NEGATIVE Leu/uL (NEGATIVE); URINE PROTEIN NEGATIVE mg/dL (<30 mg/dL)
[2016-12-30 18:25] LABS: URINE APPEARANCE CLEAR (CLEAR); URINE COLOR YELLOW (YELLOW)
[2016-12-30 18:33] LABS: URINE WBC 0 - 2 /hpf (0-6)
[2016-12-30] MEDS: HYDROmorphone 2 mg/ml ISec IVP PRN (22:27)
[2016-12-31] MEDS: Morphine 4 mg/ml ISec IVP PRN ×4 (00:15→23:35)
[2016-12-31] MEDS: HYDROmorphone 2 mg/ml ISec IVP PRN ×6 (02:33→22:28)
[2016-12-31] MEDS: oxyCODONE 30 mg Immediate Release Tab PO SCH ×4 (05:12→18:12)
[2016-12-31] MEDS: Pantoprazole 40 mg EC Tab PO SCH (07:00)
[2016-12-31] MEDS: Budesonide 0.25 mg/2 ml Inhal Susp UD IH SCH ×2 (07:25→20:25)
[2016-12-31] MEDS: Arformoterol 15 mcg/2 ml Inh Sol IH SCH ×2 (07:25→20:25)
--- NOTE | 2016-12-31 07:35 | CP.PCM.CON ---
<Kim Baptiste - Last Filed: 12/31/16 09:51> History of Present Illness - History of Present Illness History of Present Illness: PGY-[address] 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 He c/o bilateral leg swelling associated with rash x 1 day. Pt reports coughing and beginning antibiotic treatment [address] Reagan Guy. PMD, Dr. Fermin, advised pt to come for the bilateral leg swelling. Patient had chronic neck pain that radiates to the right shoulder due to cancer mets with intermittent numbness and weakness. He received neulasta during chemo, and zolendronic acid on 12/13/16 for bone mets. Last dose of pemetrexed and carboplatin on 12/11/16. Pt denies trauma, falling, scratching, walking bare foot outdoor. Pt did not go to wooded area. ROS - (+) F/C. (+) cough, chronic, with occassional phlegn, slightly increases frequency Denies FORMAN, change of vision, CP, SOB, N/V/D/C. (+) BM 2 days ago (+) leg swelling, pain, rash b/l Upon ED arrival, VSS. WBC 8.5, Hb 9.1. Plt 376 Lactate 1.1, Procalc 0.2 U/A (+) blood and urobilinogen. Negative for UTI EKG: NSR @ 88. QTc 430 CXR: L Port. Mass in the right upper lobe with direct extension into the posterior elements at T1 T2, T3 (chronic). Diffuse increased markings in both lungs. The lungs are hyperinflated with peribronchial thickening. PMH: COPD Stage 4 NSCLC mets to T1-T3 with destructive lesion, currently on chemo PSH: Port placement (L arm) FH: Sister of uterin [place] Another family member from lymphoma His other sister and brother with cancer Mom has cardiac disease Other sister has chronic a fib Soc Hx: Former heavy smoker, lives at home, sister is best main contact Allergies: Penicillin; anaphylaxis Meds: Lasix 20 PO daily Nystatin swish and swallow Montelucast Megace Folic acid Zanaflex 4q6, Gabapentin 300 QID, Fentanyl 50mcg patch; Oxycodone IR 30q6 PMD: Dr. Fermin Outpt Onc: Outpt pain: Dr. Sterling Past Patient History - Infectious Disease Hx of Infectious Diseases: None - Past Social History Smoking Status: Former Smoker - CARDIAC Hx Cardiac Disorders: No - PULMONARY Hx Respiratory Disorders: Yes Hx Chronic Obstructive Pulmonary Disease (COPD): Yes Other/Comment: Stage 4 lung cancer - NEUROLOGICAL Hx Neurological Disorder: No - HEENT Hx HEENT Problems: No - RENAL Hx Chronic Kidney Disease: No - ENDOCRINE/METABOLIC Hx Endocrine Disorders: No - HEMATOLOGICAL/ONCOLOGICAL Hx Blood Disorders: Yes - INTEGUMENTARY Hx Dermatological Problems: No - MUSCULOSKELETAL/RHEUMATOLOGICAL Hx Musculoskeletal Disorders: Yes Hx Falls: No - GASTROINTESTINAL Hx Gastrointestinal Disorders: No - GENITOURINARY/GYNECOLOGICAL Hx Genitourinary Disorders: No - PSYCHIATRIC Hx Psychophysiologic Disorder: Yes Hx Depression: Yes - SURGICAL HISTORY Hx Musculoskeletal Surgery: Yes (plate placed in back) Hx Orthopedic Surgery: Yes (R shoulder) - ANESTHESIA Hx Anesthesia: Yes Meds Allergies/Adverse Reactions: Allergies Allergy/AdvReac Type Severity Reaction Status Date / Time Penicillins Allergy ANAPHYLAXIS Verified 12/30/16 14:26 - Medications Medications: Current Medications Arformoterol Tartrate (Brovana) 15 mcg IH [id number] [facility] Last Admin: 12/31/16 07:25 Dose: 15 mcg Budesonide (Pulmicort Respules) 0.25 mg IH [id number] [facility] Last Admin: 12/31/16 07:25 Dose: 0.25 mg Cholecalciferol (Vitamin D) 1,000 iu PO QWK [facility] Enoxaparin Sodium (Lovenox) 40 mg SC DAILY [facility] PRN Reason: Protocol Fentanyl (Duragesic) 1 patch TD Q72H [facility] Last Admin: 12/31/16 03:45 Dose: 1 patch Fentanyl (Duragesic) 1 patch TD Q72H [facility] Last Admin: 12/31/16 03:45 Dose: 1 patch Folic Acid (Folic Acid) 1 mg PO DAILY [facility] Furosemide (Lasix) 20 mg PO DAILY [facility] Gabapentin (Neurontin) 300 mg PO QID [facility] PRN Reason: Protocol Hydromorphone HCl (Dilaudid) 2 mg IVP Q4H PRN PRN Reason: Pain, severe (8-10) Last Admin: 12/31/16 06:06 Dose: 2 mg Vancomycin HCl (Vancomycin 1gm) 1 gm in 250 mls @ 167 mls/hr IVPB Q12H [facility] PRN Reason: Protocol Stop: 12/31/16 23:00 Megestrol Acetate (Megace) 40 mg PO BID [facility] Montelukast Sodium (Singulair) 10 mg PO DAILY [facility] Morphine Sulfate (Morphine) 4 mg IVP Q6H PRN PRN Reason: Pain, moderate (4-7) Last Admin: 12/31/16 00:15 Dose: 4 mg Nystatin (Nystatin Oral Susp) 5 ml PO QID [facility] Ondansetron HCl (Zofran Inj) 4 mg IVP Q4H PRN PRN Reason: Nausea/Vomiting Oxycodone HCl (Oxycodone Immediate Release Tab) 30 mg PO Q6 [facility] Last Admin: 12/31/16 05:12 Dose: 30 mg Pantoprazole Sodium (Protonix Ec Tab) 40 mg PO 0600 [facility] Last Admin: 12/31/16 07:00 Dose: 40 mg Tizanidine HCl (Zanaflex) 4 mg PO Q6 [facility] Last Admin: 12/31/16 07:00 Dose: 4 mg Physical Exam - Constitutional Appears: Chronically Ill, Other (underweight) - Head Exam Head Exam: ATRAUMATIC, NORMAL INSPECTION, NORMOCEPHALIC - Eye Exam Eye Exam: EOMI, Normal appearance, PERRL. absent: Scleral icterus Pupil Exam: NORMAL ACCOMODATION - ENT Exam ENT Exam: Mucous Membranes Moist - Neck Exam Additional comments: supple - Respiratory Exam Respiratory Exam: Clear to Auscultation Bilateral. absent: Rales, Rhonchi, Wheezes - Cardiovascular Exam Cardiovascular Exam: REGULAR RHYTHM, +S1, +S2 - GI/Abdominal Exam GI & Abdominal Exam: Normal Bowel Sounds, Soft. absent: Distended, Firm, Guarding, Rigid - Extremities Exam Extremities exam: Positive for: normal capillary refill, pedal edema, tenderness , pedal pulses present. Negative for: calf tenderness, normal inspection (flat maculopapular rashes of varies sizes from 0.5 inches to 2 inches, non draining, from ankes to mid calf, circumferental; dorsal foot edema b/l. No gipson cyst or lymphadenopahty behind knee or inguinal) Results - Vital Signs Recent Vital Signs: Last Vital Signs Temp 99.1 F 12/31/16 01:10 Pulse 87 12/31/16 01:10 Resp 96 H 12/31/16 01:10 BP 117/66 12/31/16 01:10 Pulse Ox 97 12/30/16 20:00 - Labs Result Diagrams: 12/30/16 15:20 12/30/16 15:20 Labs: Laboratory Results - last 24 hr 12/30/16 18:00 Urine Color Yellow Urine Appearance Clear Urine pH 6.5 Ur Specific [place] 1.010 Urine Protein Negative Urine Glucose (UA) Negative Urine Ketones Negative Urine Blood Small H Urine Nitrate Negative Urine Bilirubin Negative Urine Urobilinogen 1.0 H Ur Leukocyte Esterase Negative Urine RBC 1 - 3 Urine WBC 0 - 2 Assessment & Plan - Assessment and Plan (Free Text) Plan: 56 M, immunocompromise, on current chemo (carboplatin and pemetrexed) for stage 4 NSCLC mets to thoracic spine T1-T3 Erysipelas vs cellulitis in b/l LE Doubt medication skin reaction Cough likely from COPD chronic Plan - Vanco - consider doppler u/s b/l for LE to r/o DVT - Date & Time Date: 12/31/16 Time: 09:43 <Ernesto Rich S - Last Filed: 12/31/16 11:48> Meds - Medications Medications: Current Medications Arformoterol Tartrate (Brovana) 15 mcg IH [id number] [facility] Last Admin: 12/31/16 07:25 Dose: 15 mcg Budesonide (Pulmicort Respules) 0.25 mg IH [id number] [facility] Last Admin: 12/31/16 07:25 Dose: 0.25 mg Cholecalciferol (Vitamin D) 1,000 iu PO QWK [facility] Enoxaparin Sodium (Lovenox) 40 mg SC DAILY [facility] PRN Reason: Protocol Last Admin: 12/31/16 10:50 Dose: 40 mg Fentanyl (Duragesic) 1 patch TD Q72H [facility] Last Admin: 12/31/16 03:45 Dose: 1 patch Fentanyl (Duragesic) 1 patch TD Q72H [facility] Last Admin: 12/31/16 03:45 Dose: 1 patch Folic Acid (Folic Acid) 1 mg PO DAILY [facility] Last Admin: 12/31/16 10:47 Dose: 1 mg Furosemide (Lasix) 20 mg PO DAILY [facility] Last Admin: 12/31/16 10:48 Dose: 20 mg Gabapentin (Neurontin) 300 mg PO QID [facility] PRN Reason: Protocol Last Admin: 12/31/16 10:48 Dose: 300 mg Hydromorphone HCl (Dilaudid) 2 mg IVP Q4H PRN PRN Reason: Pain, severe (8-10) Last Admin: 12/31/16 06:06 Dose: 2 mg Vancomycin HCl (Vancomycin 1gm) 1 gm in 250 mls @ 167 mls/hr IVPB Q12H [facility] PRN Reason: Protocol Stop: 12/31/16 23:00 Megestrol Acetate (Megace) 200 mg PO BID [facility] Montelukast Sodium (Singulair) 10 mg PO DAILY [facility] Last Admin: 12/31/16 10:50 Dose: 10 mg Morphine Sulfate (Morphine) 4 mg IVP Q6H PRN PRN Reason: Pain, moderate (4-7) Last Admin: 12/31/16 10:54 Dose: 4 mg Nystatin (Nystatin Oral Susp) 5 ml PO QID [facility] Last Admin: 12/31/16 10:50 Dose: 5 ml Ondansetron HCl (Zofran Inj) 4 mg IVP Q4H PRN PRN Reason: Nausea/Vomiting Oxycodone HCl (Oxycodone Immediate Release Tab) 30 mg PO Q6 [facility] Last Admin: 12/31/16 05:12 Dose: 30 mg Pantoprazole Sodium (Protonix Ec Tab) 40 mg PO 0600 [facility] Last Admin: 12/31/16 07:00 Dose: 40 mg Tizanidine HCl (Zanaflex) 4 mg PO Q6 [facility] Last Admin: 12/31/16 07:00 Dose: 4 mg Results - Vital Signs Recent Vital Signs: Last Vital Signs Temp 98 F 12/31/16 06:15 Pulse 83 12/31/16 06:15 Resp 18 12/31/16 06:15 BP 106/67 12/31/16 10:48 Pulse Ox 97 12/31/16 06:15 - Labs Result Diagrams: 12/30/16 15:20 12/30/16 15:20 Labs: Laboratory Results - last 24 hr 12/30/16 18:00 Urine Color Yellow Urine Appearance Clear Urine pH 6.5 Ur Specific [place] 1.010 Urine Protein Negative Urine Glucose (UA) Negative Urine Ketones Negative Urine Blood Small H Urine Nitrate Negative Urine Bilirubin Negative Urine Urobilinogen 1.0 H Ur Leukocyte Esterase Negative Urine RBC 1 - 3 Urine WBC 0 - 2 Assessment & Plan - Assessment and Plan (Free Text) Plan: Attending attestation: Patient seen and examined, discussed with medical sociologist. I have reviewed the patient's medical history, HPI, personal and social histories, allergies, physical exam. I agree with the above findings. In addition, we will continue Vancomycin for this patient with possible skin and soft tissue infection of the lower extremities. Patient also has a rash on both feet, etiology to be determined. Will check ultrasound of the legs. Will follow up blood cx. Will monitor clinically.
[2016-12-31 09:08] VITALS: RESP 18
--- NOTE | 2016-12-31 09:40 | CARD ---
APPROVED REPORT EKG Measurement Heart [id number] <Conclusion> Normal sinus rhythm Moderate voltage criteria for LVH, may be normal variant Small inferior q waves. No change
[2016-12-31] MEDS: Nystatin 100,000 Units/ml Oral Susp 5 ml UD PO SCH ×4 (10:50→22:28)
[2016-12-31] MEDS: Enoxaparin 40 mg Syringe SC SCH (10:50)
[2016-12-31 11:51] LABS: ADD MANUAL DIFF? NO
[2016-12-31 12:00] LABS: BASO # 0.02 K/mm3 (0.0-2.0); BASO % 0.2 % (0.0-3.0); EOS % 0.2 % (1.5-5.0); GRAN # 6.28 (1.4-6.5); HEMATOCRIT 25.8 % (42.0-52.0); LYMPH # 1.2 (1.2-3.4); LYMPH % 14.1 % (22.0-35.0); MEAN CELL VOLUME 91.2 fL (80.0-105.0); MEAN CORPUSCULAR HGB CONC 32.9 g/dl (31.0-37.0); MEAN PLATELET VOLUME 8.7 fl (7.0-11.0); MONO # 1.1 (0.1-0.6); MONO % 12.5 % (1.0-6.0); PLATELET COUNT 366 10^3/uL (120.0-450.0); RED CELL DISTRIBUTION WIDTH 16.1 % (11.5-14.5); WHITE BLOOD COUNT 8.6 10^3/ul (4.5-11.0)
[2016-12-31 12:03] LABS: ALB/GLOB RATIO 0.9 (1.1-1.8); ALKALINE PHOSPHATASE 76 U/L (38-133); ALT/SGPT 46 U/L (7-56); AST/SGOT 34 U/L (15-59); BILIRUBIN,TOTAL 0.4 mg/dL (0.2-1.3); BLOOD UREA NITROGEN 7 mg/dL (7-21); CALCIUM 8.1 mg/dL (8.4-10.5); CARBON DIOXIDE 22 mmol/L (21-33); CHLORIDE 100 mmol/L (95-110); GFR AFRICAN-AMERICAN > 60; GLUCOSE,RANDOM 119 mg/dL (70-110); POTASSIUM 3.7 mmol/L (3.6-5.0); SODIUM 132 mmol/L (132-148); TOTAL PROTEIN 6.3 g/dL (5.8-8.3)
--- NOTE | 2016-12-31 12:55 | CP.PCM.CON ---
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 Pt states that the swelling and rash started 2-3 days ago. Pt states that he than saw his PMD which stated that he should come to the hospital for further work up. Pt also c/o chronic R extremity pain and weakness. He is pain medications but states that his pain is not well controlled 10/10 in severity. Denies any other complaints. Denies any diaz. dizziness, f/c, n/v/d, abd pain, sob, or chest pain. PMH: COPD, Stage 4 NSCLC mets to T1-T3 with destructive lesion, currently on chemo PSH: Port placement (L arm) FH: Sister of uterin [place], Another family member from lymphoma, His other sister and brother with cancer, Soc Hx: Former heavy smoker, lives at home, sister is best main contact Allergies: Penicillin; anaphylaxis Meds: refer to [facility] PMD: Dr. Fermin Outpt pain man: Dr. Sterling Review of Systems - Review of Systems All systems: reviewed and no additional remarkable complaints except (HPI) Past Patient History - Infectious Disease Hx of Infectious Diseases: None - Past Social History Smoking Status: Former Smoker - CARDIAC Hx Cardiac Disorders: No - PULMONARY Hx Respiratory Disorders: Yes Hx Chronic Obstructive Pulmonary Disease (COPD): Yes Other/Comment: Stage 4 lung cancer - NEUROLOGICAL Hx Neurological Disorder: No - HEENT Hx HEENT Problems: No - RENAL Hx Chronic Kidney Disease: No - ENDOCRINE/METABOLIC Hx Endocrine Disorders: No - HEMATOLOGICAL/ONCOLOGICAL Hx Blood Disorders: Yes - INTEGUMENTARY Hx Dermatological Problems: No - MUSCULOSKELETAL/RHEUMATOLOGICAL Hx Musculoskeletal Disorders: Yes Hx Falls: No - GASTROINTESTINAL Hx Gastrointestinal Disorders: No - GENITOURINARY/GYNECOLOGICAL Hx Genitourinary Disorders: No - PSYCHIATRIC Hx Psychophysiologic Disorder: Yes Hx Depression: Yes - SURGICAL HISTORY Hx Musculoskeletal Surgery: Yes (plate placed in back) Hx Orthopedic Surgery: Yes (R shoulder) - ANESTHESIA Hx Anesthesia: Yes Meds Allergies/Adverse Reactions: Allergies Allergy/AdvReac Type Severity Reaction Status Date / Time Penicillins Allergy ANAPHYLAXIS Verified 12/30/16 14:26 - Medications Medications: Current Medications Arformoterol Tartrate (Brovana) 15 mcg IH [id number] [facility] Last Admin: 12/31/16 07:25 Dose: 15 mcg Budesonide (Pulmicort Respules) 0.25 mg IH [id number] [facility] Last Admin: 12/31/16 07:25 Dose: 0.25 mg Cholecalciferol (Vitamin D) 1,000 iu PO QWK [facility] Enoxaparin Sodium (Lovenox) 40 mg SC DAILY [facility] PRN Reason: Protocol Last Admin: 12/31/16 10:50 Dose: 40 mg Fentanyl (Duragesic) 1 patch TD Q72H [facility] Last Admin: 12/31/16 03:45 Dose: 1 patch Fentanyl (Duragesic) 1 patch TD Q72H [facility] Last Admin: 12/31/16 03:45 Dose: 1 patch Folic Acid (Folic Acid) 1 mg PO DAILY [facility] Last Admin: 12/31/16 10:47 Dose: 1 mg Furosemide (Lasix) 20 mg PO DAILY [facility] Last Admin: 12/31/16 10:48 Dose: 20 mg Gabapentin (Neurontin) 300 mg PO QID [facility] PRN Reason: Protocol Last Admin: 12/31/16 10:48 Dose: 300 mg Hydromorphone HCl (Dilaudid) 2 mg IVP Q4H PRN PRN Reason: Pain, severe (8-10) Last Admin: 12/31/16 12:09 Dose: 2 mg Vancomycin HCl (Vancomycin 1gm) 1 gm in 250 mls @ 167 mls/hr IVPB Q12H [facility] PRN Reason: Protocol Stop: 12/31/16 23:00 Megestrol Acetate (Megace) 200 mg PO BID [facility] Montelukast Sodium (Singulair) 10 mg PO DAILY [facility] Last Admin: 12/31/16 10:50 Dose: 10 mg Morphine Sulfate (Morphine) 4 mg IVP Q6H PRN PRN Reason: Pain, moderate (4-7) Last Admin: 12/31/16 10:54 Dose: 4 mg Nystatin (Nystatin Oral Susp) 5 ml PO QID [facility] Last Admin: 12/31/16 10:50 Dose: 5 ml Ondansetron HCl (Zofran Inj) 4 mg IVP Q4H PRN PRN Reason: Nausea/Vomiting Oxycodone HCl (Oxycodone Immediate Release Tab) 30 mg PO Q6 [facility] Last Admin: 12/31/16 05:12 Dose: 30 mg Pantoprazole Sodium (Protonix Ec Tab) 40 mg PO 0600 [facility] Last Admin: 12/31/16 07:00 Dose: 40 mg Tizanidine HCl (Zanaflex) 4 mg PO Q6 [facility] Last Admin: 12/31/16 07:00 Dose: 4 mg Physical Exam - Constitutional Appears: No Acute Distress - Head Exam Head Exam: ATRAUMATIC, NORMAL INSPECTION, NORMOCEPHALIC - Eye Exam Eye Exam: EOMI, Normal appearance, PERRL Pupil Exam: NORMAL ACCOMODATION, PERRL - ENT Exam ENT Exam: Mucous Membranes Moist, Normal Exam - Neck Exam Neck exam: Positive for: Normal Inspection - Respiratory Exam Respiratory Exam: Clear to Auscultation Bilateral, NORMAL BREATHING PATTERN. absent: Wheezes - Cardiovascular Exam Cardiovascular Exam: REGULAR RHYTHM, RRR, +S1, +S2 - GI/Abdominal Exam GI & Abdominal Exam: Normal Bowel Sounds, Soft. absent: Tenderness - Extremities Exam Extremities exam: Positive for: pedal edema. Negative for: calf tenderness Additional comments: R upper ext: weakness to the R arm, sensation and pulses intact B/L lower ext: edema to calf down and area of redness and erythema near ankle - Back Exam Back exam: NORMAL INSPECTION - Neurological Exam Neurological exam: Alert, CN II-XII Intact, Normal Gait, Oriented x3, Reflexes Normal - Psychiatric Exam Psychiatric exam: Normal Affect, Normal Mood - Skin Skin Exam: Dry, Intact, Normal Color, Warm Results - Vital Signs Recent Vital Signs: Last Vital Signs Temp 98 F 12/31/16 06:15 Pulse 83 12/31/16 06:15 Resp 18 12/31/16 06:15 BP 106/67 12/31/16 10:48 Pulse Ox 97 12/31/16 06:15 - Labs Result Diagrams: 12/31/16 11:50 12/31/16 11:50 Labs: Laboratory Results - last 24 hr 12/30/16 12/31/16 12/31/16 18:00 11:50 11:50 WBC 8.6 RBC 2.83 L Hgb 8.5 L Hct 25.8 L MCV 91.2 MCH 30.0 MCHC 32.9 RDW 16.1 H Plt Count 366 MPV 8.7 Gran % 73.0 H Lymph % (Auto) 14.1 L Hayes % (Auto) 12.5 H Eos % (Auto) 0.2 L Baso % (Auto) 0.2 Gran # 6.28 Lymph # 1.2 Hayes # 1.1 H Eos # 0.0 Baso # 0.02 Sodium 132 Potassium 3.7 Chloride 100 Carbon Dioxide 22 Anion Gap 14 BUN 7 Creatinine 0.5 Est GFR ( Amer) > 60 Est GFR (Non-Af Amer) > 60 Random Glucose 119 H Calcium 8.1 L Total Bilirubin 0.4 AST 34 ALT 46 Alkaline Phosphatase 76 Total Protein 6.3 Albumin 3.1 Globulin 3.3 Albumin/Globulin Ratio 0.9 L Urine Color Yellow Urine Appearance Clear Urine pH 6.5 Ur Specific [place] 1.010 Urine Protein Negative Urine Glucose (UA) Negative Urine Ketones Negative Urine Blood Small H Urine Nitrate Negative Urine Bilirubin Negative Urine Urobilinogen 1.0 H Ur Leukocyte Esterase Negative Urine RBC 1 - 3 Urine WBC 0 - 2 Assessment & Plan - Assessment and Plan (Free Text) Assessment: 56 M with PMH COPD from past heavy smoking, is currently on chemo (carboplatin and pemetrexed) for stage 4 non-small cell lung carcinoma mets to thoracic spine T1-T3 presents c/o bilateral leg swelling and rash x 1 day and R arm pain and weakness. Plan: - cont medical management - Recent Pet scan 12/17: of tissue mass lesion medial aspect of R lung upper lobe apex extending to the R aspect of thoracic inlet extending C7-T1-3 involving R transverse process and R pedicel. 2.1c soft tissue nodule R adrenal gland consistent with mets - Cont pain control - Consulted pain management for recs - Receiving chemotherapy (carboplatin and pemetrexed) and is already maxed out on radiation already - F/u ID recs for cellulites - Ext US 12/14 was neg for DVts - consider repeat - Cont Vancomycin - Will cont to monitor Thank you for the courtesy of the consult. Will follow closely. Case and plan was reviewed and discussed with Dr Leary. <Lizzie Leary P - Last Filed: 01/05/17 10:42> Results - Vital Signs Recent Vital Signs: Last Vital Signs Temp 98.6 F 12/31/16 16:00 Pulse 77 12/31/16 16:00 Resp 18 12/31/16 16:00 BP 106/68 01/01/17 09:59 Pulse Ox 98 12/31/16 16:00 - Labs Result Diagrams: 01/01/17 07:00 01/01/17 07:00 Attending/Attestation - Attestation I have personally seen and examined this patient.: Yes I have fully participated in the care of the patient.: Yes I have reviewed all pertinent clinical information: Yes
[2016-12-31] MEDS: Megestrol Acetate 40 mg/ml Cup PO SCH ×2 (13:35→18:11)
[2016-12-31] MEDS: Vancomycin 1gm in NS 250ml 1 GM/250 ML BAG IVPB SCH (14:15)
--- NOTE | 2016-12-31 15:34 | CON ---
DATE: HISTORY OF PRESENT ILLNESS: A 56-year-old male seen at bedside for consultation, evaluation and management of recent outbreak of a rash on his feet and distal lower extremity for the past 2 days. The patient states that he noticed his feet and lower legs becoming red and slightly swollen and then the rash developed. He denies any recent new medications. He denies presence of bed bugs in his home. PAST MEDICAL HISTORY: Includes COPD with stage IV non-small cell lung carcinoma with mets to the thoracic spine. PAST SURGICAL HISTORY: Includes port placement. FAMILY HISTORY: Includes mother having heart disease and family members diagnosed with cancer. SOCIAL HISTORY: The patient was a former heavy smoker. Denies illicit drug use. Denies alcohol abuse. He lives at home with his sister. CURRENT ALLERGIES: INCLUDE PENICILLIN. HOME MEDICATIONS: Noted in JUL. OBJECTIVE: EXTREMITIES: Palpable pedal pulses noted bilaterally. +1 pedal edema noted bilaterally. Both lower extremity, both feet present with erythema and increased temperature gradient. There is edema and erythema from the toes proximally to the distal third of the lower legs bilaterally. There are numerous non-raised rashes dispersed throughout the distal lower legs and foot. None of the lesions are open, none of them are painful, there is no drainage. This is some discomfort upon palpation of the gastroc soleus complex bilaterally. There are no interdigital macerations and has a portal of entry for cellulitis. There is no interdigital macerations noted or portal of entry of bacterial infection. ASSESSMENT: Dermatitis versus cellulitis in the lower extremity and feet bilaterally. PLAN: The patient's foot was examined. Venous Dopplers were ordered and we are awaiting results. In the meantime, there are no open lesions or open sores. We will apply Lotrisone cream, which will provide antifungal coverage and a mild clinical steroid in an attempt to combat this dermatitis of unknown etiology. The patient will be seen in followup daily. Amarjit Haley DPM
[2016-12-31] MEDS: Clotrimazole/Betamethasone Lotion(30 ml) TOP SCH (19:23)
[2016-12-31 19:49] VITALS: PULSE 77; TEMP 98.6; O2SAT 98
[2017-01-01] MEDS: oxyCODONE 30 mg Immediate Release Tab PO SCH ×3 (01:36→12:06)
[2017-01-01] MEDS: HYDROmorphone 2 mg/ml ISec IVP PRN ×5 (01:45→10:00)
[2017-01-01] MEDS ORDERED: Vancomycin 1gm in NS 250ml 1 GM/250 ML BAG IVPB SCH ×2 (01:45→10:00)
[2017-01-01] MEDS: Vancomycin 1gm in NS 250ml 1 GM/250 ML BAG IVPB SCH (01:48)
[2017-01-01] MEDS: Pantoprazole 40 mg EC Tab PO SCH (05:13)
[2017-01-01] MEDS: Morphine 4 mg/ml ISec IVP PRN ×2 (05:13→12:04)
--- NOTE | 2017-01-01 07:06 | CP.PCM.PN ---
<Kim Baptiste - Last Filed: 01/01/17 10:14> Subjective - Date & Time of Evaluation Date of Evaluation: 01/01/17 Time of Evaluation: 07:03 - Subjective Subjective: PGY-[address] Rich No acute event overnight. (+) BM, hard at around mid-night Denies F/C/diaphoresis/N/V. Appetite fair Chronic R should pain managed by pain regimen Objective - Vital Signs/Intake and Output Vital Signs (last 24 hours): Temp Pulse Resp BP Pulse Ox 98.6 F 77 18 107/69 98 12/31/16 16:00 12/31/16 16:00 12/31/16 16:00 12/31/16 16:00 12/31/16 16:00 Intake and Output: 01/01/17 01/01/17 06:59 18:59 Intake Total 320 Balance 320 - Medications Medications: Current Medications Arformoterol Tartrate (Brovana) 15 mcg IH [id number] [facility] Last Admin: 12/31/16 20:25 Dose: Not Given Betamethasone/Clotrimazole (Lotrisone) 0 ml TOP BID [facility] Last Admin: 12/31/16 19:23 Dose: 1 applic Budesonide (Pulmicort Respules) 0.25 mg IH [id number] [facility] Last Admin: 12/31/16 20:25 Dose: Not Given Cholecalciferol (Vitamin D) 1,000 iu PO QWK [facility] Enoxaparin Sodium (Lovenox) 40 mg SC DAILY [facility] PRN Reason: Protocol Last Admin: 12/31/16 10:50 Dose: 40 mg Fentanyl (Duragesic) 1 patch TD Q72H [facility] Last Admin: 12/31/16 03:45 Dose: 1 patch Fentanyl (Duragesic) 1 patch TD Q72H [facility] Last Admin: 12/31/16 03:45 Dose: 1 patch Folic Acid (Folic Acid) 1 mg PO DAILY [facility] Last Admin: 12/31/16 10:47 Dose: 1 mg Furosemide (Lasix) 20 mg PO DAILY [facility] Last Admin: 12/31/16 10:48 Dose: 20 mg Gabapentin (Neurontin) 300 mg PO QID [facility] PRN Reason: Protocol Last Admin: 12/31/16 22:31 Dose: Not Given Hydromorphone HCl (Dilaudid) 2 mg IVP Q3 PRN PRN Reason: Pain, severe (8-10) Last Admin: 01/01/17 06:55 Dose: 2 mg Vancomycin HCl (Vancomycin 1gm) 1 gm in 250 mls @ 167 mls/hr IVPB Q12H [facility] PRN Reason: Protocol Megestrol Acetate (Megace) 200 mg PO BID [facility] Last Admin: 12/31/16 18:11 Dose: Not Given Montelukast Sodium (Singulair) 10 mg PO DAILY [facility] Last Admin: 12/31/16 10:50 Dose: 10 mg Morphine Sulfate (Morphine) 4 mg IVP Q6H PRN PRN Reason: Pain, moderate (4-7) Last Admin: 01/01/17 05:13 Dose: 4 mg Nystatin (Nystatin Oral Susp) 5 ml PO QID [facility] Last Admin: 12/31/16 22:28 Dose: 5 ml Ondansetron HCl (Zofran Inj) 4 mg IVP Q4H PRN PRN Reason: Nausea/Vomiting Oxycodone HCl (Oxycodone Immediate Release Tab) 30 mg PO Q6 [facility] Last Admin: 01/01/17 01:36 Dose: Not Given Pantoprazole Sodium (Protonix Ec Tab) 40 mg PO 0600 [facility] Last Admin: 01/01/17 05:13 Dose: 40 mg Tizanidine HCl (Zanaflex) 4 mg PO Q6 [facility] Last Admin: 01/01/17 05:13 Dose: 4 mg - Labs Labs: 12/31/16 11:50 12/31/16 11:50 PT 12.0 Seconds (9.9-11.8) H 12/30/16 15:20 INR 1.11 (0.93-1.08) H 12/30/16 15:20 APTT 35.9 Seconds (23.7-30.8) H 12/30/16 15:20 - Constitutional Appears: Cachectic, Chronically Ill - Head Exam Head Exam: ATRAUMATIC, NORMAL INSPECTION, NORMOCEPHALIC - Eye Exam Eye Exam: EOMI, Normal appearance, PERRL - ENT Exam ENT Exam: Mucous Membranes Moist Additional comments: white plaque at base of tongue - Neck Exam Additional comments: supple - Respiratory Exam Respiratory Exam: Clear to Ausculation Bilateral. absent: Rales, Rhonchi, Wheezes - Cardiovascular Exam Cardiovascular Exam: REGULAR RHYTHM, +S1, +S2 - GI/Abdominal Exam GI & Abdominal Exam: Soft, Normal Bowel Sounds. absent: Firm, Guarding, Rigid - Extremities Exam Extremities Exam: Normal Capillary Refill, Pedal Edema (slight on R dorsal foot. L arm port intact). absent: Calf Tenderness, Tenderness - Skin Skin Exam: Dry, Rash, Warm Additional comments: Non raised purpura vs petecheal-maculo rash, irregular boarder, non-blanching, localized circumferential distal leg b/l. Assessment and Plan - Assessment and Plan (Free Text) Plan: 56 M, immunocompromise, on current chemo (carboplatin and pemetrexed) for stage 4 NSCLC mets to thoracic spine T1-T3 Possible skin and soft tissue infection of the lower extremities Oral Thrush Unlikely medication induced skin reaction Doubt myelosuppression side effect from current chemotherapy Penicillin allergy Plan - Blood culture: No growth in 24 hours - Continue Vancomycin 1g q12 (day 3), monitor BUN/Cre - Lotrisone (Betamethasone/Clotimazole) cream for antifungal/antiinflamm - Nystatin Oral susp - Negative DVT per Doppler u/s b/l - Pending pathology review on peripheral smear - 3rd round of chemo supposedly today but will postpone to next week s/r/d/w Dr. Rich <Ernesto Rich S - Last Filed: 01/01/17 11:48> Objective - Vital Signs/Intake and Output Vital Signs (last 24 hours): Temp Pulse Resp BP Pulse Ox 98.6 F 77 18 106/68 98 12/31/16 16:00 12/31/16 16:00 12/31/16 16:00 01/01/17 09:59 12/31/16 16:00 Intake and Output: 01/01/17 01/01/17 06:59 18:59 Intake Total 320 180 Balance 320 180 - Medications Medications: Current Medications Arformoterol Tartrate (Brovana) 15 mcg IH [id number] [facility] Last Admin: 01/01/17 07:25 Dose: Not Given Betamethasone/Clotrimazole (Lotrisone) 0 ml TOP BID [facility] Last Admin: 01/01/17 11:38 Dose: 1 applic Budesonide (Pulmicort Respules) 0.25 mg IH [id number] [facility] Last Admin: 01/01/17 07:25 Dose: Not Given Cholecalciferol (Vitamin D) 1,000 iu PO QWK [facility] Doxycycline Hyclate (Doryx) 100 mg PO Q12 [facility] PRN Reason: Protocol Stop: 01/09/17 05:00 Enoxaparin Sodium (Lovenox) 40 mg SC DAILY [facility] PRN Reason: Protocol Last Admin: 01/01/17 10:00 Dose: 40 mg Fentanyl (Duragesic) 1 patch TD Q72H [facility] Last Admin: 12/31/16 03:45 Dose: 1 patch Fentanyl (Duragesic) 1 patch TD Q72H [facility] Last Admin: 12/31/16 03:45 Dose: 1 patch Folic Acid (Folic Acid) 1 mg PO DAILY [facility] Last Admin: 01/01/17 09:58 Dose: 1 mg Furosemide (Lasix) 20 mg PO DAILY [facility] Last Admin: 01/01/17 09:59 Dose: 20 mg Gabapentin (Neurontin) 300 mg PO QID [facility] PRN Reason: Protocol Last Admin: 01/01/17 09:58 Dose: 300 mg Hydromorphone HCl (Dilaudid) 2 mg IVP Q3 PRN PRN Reason: Pain, severe (8-10) Last Admin: 01/01/17 10:00 Dose: 2 mg Vancomycin HCl (Vancomycin 1gm) 1 gm in 250 mls @ 167 mls/hr IVPB Q12H [facility] PRN Reason: Protocol Last Admin: 01/01/17 09:57 Dose: 167 mls/hr Megestrol Acetate (Megace) 200 mg PO BID [facility] Last Admin: 01/01/17 09:58 Dose: 200 mg Montelukast Sodium (Singulair) 10 mg PO DAILY [facility] Last Admin: 01/01/17 09:58 Dose: 10 mg Morphine Sulfate (Morphine) 4 mg IVP Q6H PRN PRN Reason: Pain, moderate (4-7) Last Admin: 01/01/17 05:13 Dose: 4 mg Nystatin (Nystatin Oral Susp) 5 ml PO QID [facility] Last Admin: 01/01/17 10:10 Dose: 5 ml Ondansetron HCl (Zofran Inj) 4 mg IVP Q4H PRN PRN Reason: Nausea/Vomiting Oxycodone HCl (Oxycodone Immediate Release Tab) 30 mg PO Q6 [facility] Last Admin: 01/01/17 09:15 Dose: 30 mg Pantoprazole Sodium (Protonix Ec Tab) 40 mg PO 0600 [facility] Last Admin: 01/01/17 05:13 Dose: 40 mg Tizanidine HCl (Zanaflex) 4 mg PO Q6 [facility] Last Admin: 01/01/17 11:29 Dose: 4 mg - Labs Labs: 01/01/17 07:00 01/01/17 07:00 PT 12.0 Seconds (9.9-11.8) H 12/30/16 15:20 INR 1.11 (0.93-1.08) H 12/30/16 15:20 APTT 35.9 Seconds (23.7-30.8) H 12/30/16 15:20 Assessment and Plan - Assessment and Plan (Free Text) Plan: Infectious Diseases Attending Physician Attestation Patient seen and examined, discussed with pediatric medical assistant. I agree with the above findings. In addition, we will continue this patient on Vancomycin for possible lower extremity cellulitis - can be switched to PO Doxycycline when ready for discharge. Patient has been started by Podiatry on Lotrisone cream for possible dermatitis of the lower extremities - will continue this as well. Patient also has oral candidiasis - will continue Nystatin.
[2017-01-01] MEDS: Arformoterol 15 mcg/2 ml Inh Sol IH SCH (07:25)
[2017-01-01] MEDS: Budesonide 0.25 mg/2 ml Inhal Susp UD IH SCH (07:25)
[2017-01-01 07:26] LABS: ADD MANUAL DIFF? NO
[2017-01-01 07:30] LABS: BASO # 0.03 K/mm3 (0.0-2.0); BASO % 0.4 % (0.0-3.0); EOS % 0.3 % (1.5-5.0); GRAN # 4.57 (1.4-6.5); GRAN % 65.1 % (50.0-68.0); HEMATOCRIT 25.7 % (42.0-52.0); LYMPH # 1.4 (1.2-3.4); LYMPH % 19.3 % (22.0-35.0); MEAN CELL VOLUME 91.8 fL (80.0-105.0); MEAN CORPUSCULAR HGB CONC 32.7 g/dl (31.0-37.0); MEAN PLATELET VOLUME 8.8 fl (7.0-11.0); MONO # 1.1 (0.1-0.6); MONO % 14.9 % (1.0-6.0); PLATELET COUNT 372 10^3/uL (120.0-450.0); RED CELL DISTRIBUTION WIDTH 16.4 % (11.5-14.5)
[2017-01-01 07:41] LABS: BLOOD UREA NITROGEN 5 mg/dL (7-21); CALCIUM 8.1 mg/dL (8.4-10.5); CARBON DIOXIDE 23 mmol/L (21-33); CHLORIDE 101 mmol/L (95-110); GFR AFRICAN-AMERICAN > 60; GLUCOSE,RANDOM 99 mg/dL (70-110); POTASSIUM 3.8 mmol/L (3.6-5.0); SODIUM 134 mmol/L (132-148)
--- NOTE | 2017-01-01 09:22 | CP.PCM.HP ---
History of Present Illness - History of Present Illness History of Present Illness: redness swelling bothfeet, warm over 2 days intractable back pain due to lung cancer patient was seen on december 30 at night 9 pm Present on Admission - Present on Admission Any Indicators Present on Admission: No History of DVT/PE: No History of Uncontrolled Diabetes: No Urinary Catheter: No Decubitus Ulcer Present: No History Surgical Site Infection Following: None Review of Systems - Constitutional Constitutional: Anorexia - Respiratory Respiratory: Dyspnea - Gastrointestinal Gastrointestinal: Constipation - Musculoskeletal Musculoskeletal: Arthralgias, Loss of Height, Muscle Weakness, Myalgias, Neck Pain - Integumentary Integumentary: Rash Past Patient History - Infectious Disease Hx of Infectious Diseases: None - Past Social History Smoking Status: Former Smoker - CARDIAC Hx Cardiac Disorders: No - PULMONARY Hx Respiratory Disorders: Yes Hx Chronic Obstructive Pulmonary Disease (COPD): Yes Other/Comment: Stage 4 lung cancer - NEUROLOGICAL Hx Neurological Disorder: No - HEENT Hx HEENT Problems: No - RENAL Hx Chronic Kidney Disease: No - ENDOCRINE/METABOLIC Hx Endocrine Disorders: No - HEMATOLOGICAL/ONCOLOGICAL Hx Blood Disorders: Yes - INTEGUMENTARY Hx Dermatological Problems: No - MUSCULOSKELETAL/RHEUMATOLOGICAL Hx Musculoskeletal Disorders: Yes Hx Falls: No - GASTROINTESTINAL Hx Gastrointestinal Disorders: No - GENITOURINARY/GYNECOLOGICAL Hx Genitourinary Disorders: No - PSYCHIATRIC Hx Psychophysiologic Disorder: Yes Hx Depression: Yes - SURGICAL HISTORY Hx Musculoskeletal Surgery: Yes (plate placed in back) Hx Orthopedic Surgery: Yes (R shoulder) - ANESTHESIA Hx Anesthesia: Yes Meds Allergies/Adverse Reactions: Allergies Allergy/AdvReac Type Severity Reaction Status Date / Time Penicillins Allergy ANAPHYLAXIS Verified 12/30/16 14:26 Physical Exam - Constitutional Appears: Older Than Stated Age, Cachectic, Chronically Ill - Head Exam Head Exam: NORMAL INSPECTION - Eye Exam Eye Exam: EOMI, Normal appearance, PERRL Pupil Exam: NORMAL ACCOMODATION - ENT Exam ENT Exam: Mucous Membranes Moist - Neck Exam Neck exam: Positive for: Full Rom, Normal Inspection, Thyromegaly - Respiratory Exam Respiratory Exam: Accessory Muscle Use, Clear to Auscultation Bilateral, NORMAL BREATHING PATTERN - Cardiovascular Exam Cardiovascular Exam: REGULAR RHYTHM - GI/Abdominal Exam GI & Abdominal Exam: Normal Bowel Sounds - Rectal Exam Rectal Exam: Deferred, NORMAL INSPECTION - Skin Additional comments: both feet swollen left more than rt, red surface with mild tender, no ulcers or skin cracks, left more than right Results - Vital Signs Recent Vital Signs: Last Vital Signs Temp 98.6 F 12/31/16 16:00 Pulse 77 12/31/16 16:00 Resp 18 12/31/16 16:00 BP 107/69 12/31/16 16:00 Pulse Ox 98 12/31/16 16:00 - Labs Result Diagrams: 01/01/17 07:00 01/01/17 07:00 Labs: Laboratory Results - last 24 hr 12/31/16 12/31/16 01/01/17 11:50 11:50 07:00 WBC 8.6 7.0 RBC 2.83 L 2.80 L Hgb 8.5 L 8.4 L Hct 25.8 L 25.7 L MCV 91.2 91.8 MCH 30.0 30.0 MCHC 32.9 32.7 RDW 16.1 H 16.4 H Plt Count 366 372 MPV 8.7 8.8 Gran % 73.0 H 65.1 Lymph % (Auto) 14.1 L 19.3 L [place] % (Auto) 12.5 H 14.9 H Eos % (Auto) 0.2 L 0.3 L Baso % (Auto) 0.2 0.4 Gran # 6.28 4.57 Lymph # 1.2 1.4 [place] # 1.1 H 1.1 H Eos # 0.0 0.0 Baso # 0.02 0.03 Sodium 132 Potassium 3.7 Chloride 100 Carbon Dioxide 22 Anion Gap 14 BUN 7 Creatinine 0.5 Est GFR ( Amer) > 60 Est GFR (Non-Af Amer) > 60 Random Glucose 119 H Calcium 8.1 L Total Bilirubin 0.4 AST 34 ALT 46 Alkaline Phosphatase 76 Total Protein 6.3 Albumin 3.1 Globulin 3.3 Albumin/Globulin Ratio 0.9 L 01/01/17 07:00 WBC RBC Hgb Hct MCV MCH MCHC RDW Plt Count MPV Gran % Lymph % (Auto) [place] % (Auto) Eos % (Auto) Baso % (Auto) Gran # Lymph # [place] # Eos # Baso # Sodium 134 Potassium 3.8 Chloride 101 Carbon Dioxide 23 Anion Gap 14 BUN 5 L Creatinine 0.5 Est GFR ( Amer) > 60 Est GFR (Non-Af Amer) > 60 Random Glucose 99 Calcium 8.1 L Total Bilirubin AST ALT Alkaline Phosphatase Total Protein Albumin Globulin Albumin/Globulin Ratio Assessment & Plan (1) Cellulitis Status: Acute (2) Lung cancer Status: Acute (3) Neck pain Status: Acute (4) Intractable pain Status: Acute - Assessment and Plan (Free Text) Plan: id consult, podiatry. pain managment. oncology consult, continue current orders as enterd by me , vancomycin, dilaudid iv. Decision To Admit - Pt Status Changed To: Hospital Disposition Of: Inpatient Admission - Admit Certification Admit to Inpatient:: After my assessment, the patient will require hospitalization for at least two midnights. This is because of the severity of symptoms shown, intensity of services needed, and/or the medical risk in this patient being treated as an outpatient. - . Bed Request Type: Med/Surg
--- NOTE | 2017-01-01 09:29 | CP.PCM.PN ---
Subjective - Date & Time of Evaluation Date of Evaluation: 12/31/16 Time of Evaluation: 17:00 - Subjective Subjective: feel better dilaudid 2 mg q3h controll the pain well c/o constipation, Objective - Vital Signs/Intake and Output Vital Signs (last 24 hours): Temp Pulse Resp BP Pulse Ox 98.6 F 77 18 107/69 98 12/31/16 16:00 12/31/16 16:00 12/31/16 16:00 12/31/16 16:00 12/31/16 16:00 Intake and Output: 01/01/17 01/01/17 06:59 18:59 Intake Total 320 180 Balance 320 180 - Medications Medications: Current Medications Arformoterol Tartrate (Brovana) 15 mcg IH [id number] [facility] Last Admin: 01/01/17 07:25 Dose: Not Given Betamethasone/Clotrimazole (Lotrisone) 0 ml TOP BID [facility] Last Admin: 12/31/16 19:23 Dose: 1 applic Budesonide (Pulmicort Respules) 0.25 mg IH [id number] [facility] Last Admin: 01/01/17 07:25 Dose: Not Given Cholecalciferol (Vitamin D) 1,000 iu PO QWK [facility] Enoxaparin Sodium (Lovenox) 40 mg SC DAILY [facility] PRN Reason: Protocol Last Admin: 12/31/16 10:50 Dose: 40 mg Fentanyl (Duragesic) 1 patch TD Q72H [facility] Last Admin: 12/31/16 03:45 Dose: 1 patch Fentanyl (Duragesic) 1 patch TD Q72H [facility] Last Admin: 12/31/16 03:45 Dose: 1 patch Folic Acid (Folic Acid) 1 mg PO DAILY [facility] Last Admin: 12/31/16 10:47 Dose: 1 mg Furosemide (Lasix) 20 mg PO DAILY [facility] Last Admin: 12/31/16 10:48 Dose: 20 mg Gabapentin (Neurontin) 300 mg PO QID [facility] PRN Reason: Protocol Last Admin: 12/31/16 22:31 Dose: Not Given Hydromorphone HCl (Dilaudid) 2 mg IVP Q3 PRN PRN Reason: Pain, severe (8-10) Last Admin: 01/01/17 06:55 Dose: 2 mg Vancomycin HCl (Vancomycin 1gm) 1 gm in 250 mls @ 167 mls/hr IVPB Q12H [facility] PRN Reason: Protocol Megestrol Acetate (Megace) 200 mg PO BID [facility] Last Admin: 12/31/16 18:11 Dose: Not Given Montelukast Sodium (Singulair) 10 mg PO DAILY [facility] Last Admin: 12/31/16 10:50 Dose: 10 mg Morphine Sulfate (Morphine) 4 mg IVP Q6H PRN PRN Reason: Pain, moderate (4-7) Last Admin: 01/01/17 05:13 Dose: 4 mg Nystatin (Nystatin Oral Susp) 5 ml PO QID [facility] Last Admin: 12/31/16 22:28 Dose: 5 ml Ondansetron HCl (Zofran Inj) 4 mg IVP Q4H PRN PRN Reason: Nausea/Vomiting Oxycodone HCl (Oxycodone Immediate Release Tab) 30 mg PO Q6 [facility] Last Admin: 01/01/17 09:15 Dose: 30 mg Pantoprazole Sodium (Protonix Ec Tab) 40 mg PO 0600 [facility] Last Admin: 01/01/17 05:13 Dose: 40 mg Tizanidine HCl (Zanaflex) 4 mg PO Q6 [facility] Last Admin: 01/01/17 05:13 Dose: 4 mg - Labs Labs: 01/01/17 07:00 01/01/17 07:00 PT 12.0 Seconds (9.9-11.8) H 12/30/16 15:20 INR 1.11 (0.93-1.08) H 12/30/16 15:20 APTT 35.9 Seconds (23.7-30.8) H 12/30/16 15:20 - Constitutional Appears: Toxic - Head Exam Head Exam: NORMAL INSPECTION - Eye Exam Eye Exam: EOMI, Normal appearance Pupil Exam: NORMAL ACCOMODATION - Neck Exam Neck Exam: Full ROM, Normal Inspection - Respiratory Exam Respiratory Exam: Clear to Ausculation Bilateral - Cardiovascular Exam Cardiovascular Exam: REGULAR RHYTHM - GI/Abdominal Exam GI & Abdominal Exam: Soft - Neurological Exam Neurological Exam: Alert, Awake, CN II-XII Intact, Normal Gait, Oriented x3 - Psychiatric Exam Psychiatric exam: Normal Affect, Normal Mood - Skin Additional comments: redness both legs no change, Assessment and Plan (1) Cellulitis Status: Acute (2) Lung cancer Status: Acute (3) Neck pain Status: Acute (4) Intractable pain Status: Acute - Assessment and Plan (Free Text) Plan: continue iv vancomycin, iv dilaudid follow up with consult. will give relistor
[2017-01-01] MEDS: Megestrol Acetate 40 mg/ml Cup PO SCH (09:58)
[2017-01-01] MEDS: Enoxaparin 40 mg Syringe SC SCH (10:00)
[2017-01-01 10:04] VITALS: BP 106/68
[2017-01-01] MEDS: Nystatin 100,000 Units/ml Oral Susp 5 ml UD PO SCH (10:10)
--- NOTE | 2017-01-01 10:25 | CP.PCM.PN ---
<Brionna Chan - Last Filed: 01/01/17 12:22> Subjective - Date & Time of Evaluation Date of Evaluation: 01/01/17 Time of Evaluation: 11:50 - Subjective Subjective: 56 year old male seen at bedside concerning left leg rashes bilaterally to lower legs. Pt has no new pedal complaints, nor lower extremity pain. Pt denies recent f/c/cp/sob/n/v nor any acute overnight events. Objective - Vital Signs/Intake and Output Vital Signs (last 24 hours): Temp Pulse Resp BP Pulse Ox 98.6 F 77 18 106/68 98 12/31/16 16:00 12/31/16 16:00 12/31/16 16:00 01/01/17 09:59 12/31/16 16:00 Intake and Output: 01/01/17 01/01/17 06:59 18:59 Intake Total 320 180 Balance 320 180 - Medications Medications: Current Medications Arformoterol Tartrate (Brovana) 15 mcg IH [id number] [facility] Last Admin: 01/01/17 07:25 Dose: Not Given Betamethasone/Clotrimazole (Lotrisone) 0 ml TOP BID [facility] Last Admin: 12/31/16 19:23 Dose: 1 applic Budesonide (Pulmicort Respules) 0.25 mg IH [id number] [facility] Last Admin: 01/01/17 07:25 Dose: Not Given Cholecalciferol (Vitamin D) 1,000 iu PO QWK [facility] Enoxaparin Sodium (Lovenox) 40 mg SC DAILY [facility] PRN Reason: Protocol Last Admin: 01/01/17 10:00 Dose: 40 mg Fentanyl (Duragesic) 1 patch TD Q72H [facility] Last Admin: 12/31/16 03:45 Dose: 1 patch Fentanyl (Duragesic) 1 patch TD Q72H [facility] Last Admin: 12/31/16 03:45 Dose: 1 patch Folic Acid (Folic Acid) 1 mg PO DAILY [facility] Last Admin: 01/01/17 09:58 Dose: 1 mg Furosemide (Lasix) 20 mg PO DAILY [facility] Last Admin: 01/01/17 09:59 Dose: 20 mg Gabapentin (Neurontin) 300 mg PO QID [facility] PRN Reason: Protocol Last Admin: 01/01/17 09:58 Dose: 300 mg Hydromorphone HCl (Dilaudid) 2 mg IVP Q3 PRN PRN Reason: Pain, severe (8-10) Last Admin: 01/01/17 10:00 Dose: 2 mg Vancomycin HCl (Vancomycin 1gm) 1 gm in 250 mls @ 167 mls/hr IVPB Q12H [facility] PRN Reason: Protocol Last Admin: 01/01/17 09:57 Dose: 167 mls/hr Megestrol Acetate (Megace) 200 mg PO BID [facility] Last Admin: 01/01/17 09:58 Dose: 200 mg Montelukast Sodium (Singulair) 10 mg PO DAILY [facility] Last Admin: 01/01/17 09:58 Dose: 10 mg Morphine Sulfate (Morphine) 4 mg IVP Q6H PRN PRN Reason: Pain, moderate (4-7) Last Admin: 01/01/17 05:13 Dose: 4 mg Nystatin (Nystatin Oral Susp) 5 ml PO QID [facility] Last Admin: 01/01/17 10:10 Dose: 5 ml Ondansetron HCl (Zofran Inj) 4 mg IVP Q4H PRN PRN Reason: Nausea/Vomiting Oxycodone HCl (Oxycodone Immediate Release Tab) 30 mg PO Q6 [facility] Last Admin: 01/01/17 09:15 Dose: 30 mg Pantoprazole Sodium (Protonix Ec Tab) 40 mg PO 0600 [facility] Last Admin: 01/01/17 05:13 Dose: 40 mg Tizanidine HCl (Zanaflex) 4 mg PO Q6 [facility] Last Admin: 01/01/17 05:13 Dose: 4 mg - Labs Labs: 01/01/17 07:00 01/01/17 07:00 PT 12.0 Seconds (9.9-11.8) H 12/30/16 15:20 INR 1.11 (0.93-1.08) H 12/30/16 15:20 APTT 35.9 Seconds (23.7-30.8) H 12/30/16 15:20 - Constitutional Appears: Well, Non-toxic, No Acute Distress - Extremities Exam Additional comments: Neuro-vascular status intact to level of digits. Diffuse erythematous patches noted to distal 1/3 of legs biulaterally. No scaling, hyper-pigmentations, nor lichenifications noted. No active exudate or drainage noted. Assessment and Plan - Assessment and Plan (Free Text) Assessment: 56 year old male with 1) Dermatitis vs cellulits. Plan: Pt seen and evaluated. Chart, labs, and vitals reviewed. Discussed with attending, Dr. Haley. Applied Lotrisone to affected dermal areas. Pt to continue application BID on outpatient basis as needed. Pt is stable from podiatry standpoint for discharge. 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 <Amarjit Haley - Last Filed: 01/02/17 08:10> Objective - Vital Signs/Intake and Output Vital Signs (last 24 hours): Temp Pulse Resp BP Pulse Ox 98.6 F 77 18 106/68 98 12/31/16 16:00 12/31/16 16:00 12/31/16 16:00 01/01/17 09:59 12/31/16 16:00 - Labs Labs: 01/01/17 07:00 01/01/17 07:00 PT 12.0 Seconds (9.9-11.8) H 12/30/16 15:20 INR 1.11 (0.93-1.08) H 12/30/16 15:20 APTT 35.9 Seconds (23.7-30.8) H 12/30/16 15:20 Attending/Attestation - Attestation I have personally seen and examined this patient.: Yes I have fully participated in the care of the patient.: Yes I have reviewed all pertinent clinical information, including history, physical exam and plan: Yes
[2017-01-01] MEDS: Clotrimazole/Betamethasone Lotion(30 ml) TOP SCH (11:38)
--- NOTE | 2017-01-01 12:53 | CP.PCM.PN ---
<Justice Nelson - Last Filed: 01/01/17 12:57> Subjective - Date & Time of Evaluation Date of Evaluation: 01/01/17 Time of Evaluation: 08:50 - Subjective Subjective: PGY [address] Leary. Pt seen and examined at bedside. No acute events overnight. Pt c/o R upper extremity, shoulder and neck pain. States that lower ext swelling/redness slightly better. Denies any diaz, dizziness, f/c, n/v/d, cp, sob. Objective - Vital Signs/Intake and Output Vital Signs (last 24 hours): Temp Pulse Resp BP Pulse Ox 98.6 F 77 18 106/68 98 12/31/16 16:00 12/31/16 16:00 12/31/16 16:00 01/01/17 09:59 12/31/16 16:00 Intake and Output: 01/01/17 01/01/17 06:59 18:59 Intake Total 320 180 Balance 320 180 - Medications Medications: Current Medications Arformoterol Tartrate (Brovana) 15 mcg IH [id number] [facility] Last Admin: 01/01/17 07:25 Dose: Not Given Betamethasone/Clotrimazole (Lotrisone) 0 ml TOP BID [facility] Last Admin: 01/01/17 11:38 Dose: 1 applic Budesonide (Pulmicort Respules) 0.25 mg IH [id number] [facility] Last Admin: 01/01/17 07:25 Dose: Not Given Cholecalciferol (Vitamin D) 1,000 iu PO QWK [facility] Doxycycline Hyclate (Doryx) 100 mg PO Q12 [facility] PRN Reason: Protocol Stop: 01/09/17 05:00 Enoxaparin Sodium (Lovenox) 40 mg SC DAILY [facility] PRN Reason: Protocol Last Admin: 01/01/17 10:00 Dose: 40 mg Fentanyl (Duragesic) 1 patch TD Q72H [facility] Last Admin: 12/31/16 03:45 Dose: 1 patch Fentanyl (Duragesic) 1 patch TD Q72H [facility] Last Admin: 12/31/16 03:45 Dose: 1 patch Folic Acid (Folic Acid) 1 mg PO DAILY [facility] Last Admin: 01/01/17 09:58 Dose: 1 mg Furosemide (Lasix) 20 mg PO DAILY [facility] Last Admin: 01/01/17 09:59 Dose: 20 mg Gabapentin (Neurontin) 300 mg PO QID [facility] PRN Reason: Protocol Last Admin: 01/01/17 09:58 Dose: 300 mg Hydromorphone HCl (Dilaudid) 2 mg IVP Q3 PRN PRN Reason: Pain, severe (8-10) Last Admin: 01/01/17 10:00 Dose: 2 mg Vancomycin HCl (Vancomycin 1gm) 1 gm in 250 mls @ 167 mls/hr IVPB Q12H [facility] PRN Reason: Protocol Last Admin: 01/01/17 09:57 Dose: 167 mls/hr Megestrol Acetate (Megace) 200 mg PO BID [facility] Last Admin: 01/01/17 09:58 Dose: 200 mg Montelukast Sodium (Singulair) 10 mg PO DAILY [facility] Last Admin: 01/01/17 09:58 Dose: 10 mg Morphine Sulfate (Morphine) 4 mg IVP Q6H PRN PRN Reason: Pain, moderate (4-7) Last Admin: 01/01/17 12:04 Dose: 4 mg Nystatin (Nystatin Oral Susp) 5 ml PO QID [facility] Last Admin: 01/01/17 10:10 Dose: 5 ml Ondansetron HCl (Zofran Inj) 4 mg IVP Q4H PRN PRN Reason: Nausea/Vomiting Oxycodone HCl (Oxycodone Immediate Release Tab) 30 mg PO Q6 [facility] Last Admin: 01/01/17 12:06 Dose: Not Given Pantoprazole Sodium (Protonix Ec Tab) 40 mg PO 0600 [facility] Last Admin: 01/01/17 05:13 Dose: 40 mg Tizanidine HCl (Zanaflex) 4 mg PO Q6 [facility] Last Admin: 01/01/17 11:29 Dose: 4 mg - Labs Labs: 01/01/17 07:00 01/01/17 07:00 PT 12.0 Seconds (9.9-11.8) H 12/30/16 15:20 INR 1.11 (0.93-1.08) H 12/30/16 15:20 APTT 35.9 Seconds (23.7-30.8) H 12/30/16 15:20 - Constitutional Appears: No Acute Distress - Head Exam Head Exam: ATRAUMATIC, NORMAL INSPECTION, NORMOCEPHALIC - Eye Exam Eye Exam: EOMI Pupil Exam: PERRL - ENT Exam ENT Exam: Mucous Membranes Moist - Neck Exam Neck Exam: Tenderness - Respiratory Exam Respiratory Exam: Clear to Ausculation Bilateral, NORMAL BREATHING PATTERN. absent: Wheezes - Cardiovascular Exam Cardiovascular Exam: REGULAR RHYTHM, RRR, +S1, +S2. absent: Murmur - GI/Abdominal Exam GI & Abdominal Exam: Soft, Normal Bowel Sounds. absent: Distended, Tenderness - Extremities Exam Extremities Exam: Normal Capillary Refill, Pedal Edema. 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 Plan: - Cont medical management - Chemo therapy next week as an outpatient - Ext US was negative for DVTs - Recent Pet scan 12/17: of tissue mass lesion medial aspect of R lung upper lobe apex extending to the R aspect of thoracic inlet extending C7-T1-3 involving R transverse process and R pedicel. 2.1c soft tissue nodule R adrenal gland consistent with mets - Cont pain control - Fentanyl patch, Dilaudid prn, morphine prn, and oxycodone - Consulted pain management for better pain control - Receiving chemotherapy (carboplatin and pemetrexed) and is already maxed out on radiation already - F/u ID recs for cellulites- Cont Vancomycin and lotrisone cream - Will cont to monitor Case and plan was reviewed and discussed in detail with Dr Leary. <Lizzie Leary - Last Filed: 01/04/17 11:42> Objective - Vital Signs/Intake and Output Vital Signs (last 24 hours): Temp Pulse Resp BP Pulse Ox 98.6 F 77 18 106/68 98 12/31/16 16:00 12/31/16 16:00 12/31/16 16:00 01/01/17 09:59 12/31/16 16:00 - Labs Labs: 01/01/17 07:00 01/01/17 07:00 PT 12.0 Seconds (9.9-11.8) H 12/30/16 15:20 INR 1.11 (0.93-1.08) H 12/30/16 15:20 APTT 35.9 Seconds (23.7-30.8) H 12/30/16 15:20 Attending/Attestation - Attestation I have personally seen and examined this patient.: Yes I have fully participated in the care of the patient.: Yes I have reviewed all pertinent clinical information, including history, physical exam and plan: Yes
--- NOTE | 2017-01-02 09:50 | CP.PCM.DIS ---
Provider - Provider Date of Admission: 12/30/16 16:55 Attending physician: Gary Fermin MD Primary care physician: SIMEON PRIMARY CARE PROVIDER Consults: oncology consults. .pain managment consults. Time Spent in preparation of Discharge (in minutes): 20 Diagnosis - Discharge Diagnosis (1) Cellulitis Status: Acute (2) Lung cancer Status: Acute (3) Neck pain Status: Acute (4) Intractable pain Status: Acute Hospital Course - Lab Results Lab Results: Micro Results 12/30/16 18:00 Urine Urine Culture - Final No Growth (<1,000 CFU/ML) Most Recent Lab Values WBC 7.0 10^3/ul (4.5-11.0) 01/01/17 07:00 RBC 2.80 10^6/uL (3.5-6.1) L 01/01/17 07:00 Hgb 8.4 gm/dL (14.0-18.0) L 01/01/17 07:00 Hct 25.7 % (42.0-52.0) L 01/01/17 07:00 MCV 91.8 fL (80.0-105.0) 01/01/17 07:00 MCH 30.0 pg (25.0-35.0) 01/01/17 07:00 MCHC 32.7 g/dl (31.0-37.0) 01/01/17 07:00 RDW 16.4 % (11.5-14.5) H 01/01/17 07:00 Plt Count 372 10^3/uL (120.0-450.0) 01/01/17 07:00 MPV 8.8 fl (7.0-11.0) 01/01/17 07:00 Gran % 65.1 % (50.0-68.0) 01/01/17 07:00 Lymph % (Auto) 19.3 % (22.0-35.0) L 01/01/17 07:00 Swisher % (Auto) 14.9 % (1.0-6.0) H 01/01/17 07:00 Eos % (Auto) 0.3 % (1.5-5.0) L 01/01/17 07:00 Baso % (Auto) 0.4 % (0.0-3.0) 01/01/17 07:00 Gran # 4.57 (1.4-6.5) 01/01/17 07:00 Lymph # 1.4 (1.2-3.4) 01/01/17 07:00 Swisher # 1.1 (0.1-0.6) H 01/01/17 07:00 Eos # 0.0 (0.0-0.7) 01/01/17 07:00 Baso # 0.03 K/mm3 (0.0-2.0) 01/01/17 07:00 ESR 142 mm/hr (0.00-15.0) H 12/30/16 15:20 PT 12.0 Seconds (9.9-11.8) H 12/30/16 15:20 INR 1.11 (0.93-1.08) H 12/30/16 15:20 APTT 35.9 Seconds (23.7-30.8) H 12/30/16 15:20 pO2 165 mm/Hg (30-55) H 12/30/16 15:40 VBG pH 7.47 (7.32-7.43) H 12/30/16 15:40 VBG pCO2 31.0 (40-60) L 12/30/16 15:40 VBG HCO3 22.6 mmol/l (21-28) 12/30/16 15:40 VBG Total CO2 23.6 mmol.L (22-28) 12/30/16 15:40 VBG O2 Sat (Calc) 97.0 % (40-65) H 12/30/16 15:40 VBG Base Excess -0.7 mmol/L (0.0-2.0) L 12/30/16 15:40 VBG Potassium 3.4 mmol/L (3.6-5.2) L 12/30/16 15:40 Sodium 132.0 mmol/L (132-148) 12/30/16 15:40 Chloride 103.0 mmol/L (98-107) 12/30/16 15:40 Glucose 122 mg/dl (75-110) H 12/30/16 15:40 Lactate 1.1 mmol/L (0.7-2.1) 12/30/16 15:40 FiO2 21.0 % 12/30/16 15:40 Sodium 134 mmol/L (132-148) 01/01/17 07:00 Potassium 3.8 mmol/L (3.6-5.0) 01/01/17 07:00 Chloride 101 mmol/L (95-110) 01/01/17 07:00 Carbon Dioxide 23 mmol/L (21-33) 01/01/17 07:00 Anion Gap 14 (10-20) 01/01/17 07:00 BUN 5 mg/dL (7-21) L 01/01/17 07:00 Creatinine 0.5 mg/dL (0.5-1.4) 01/01/17 07:00 Est GFR ( Amer) > 60 01/01/17 07:00 Est GFR (Non-Af Amer) > 60 01/01/17 07:00 Random Glucose 99 mg/dL (70-110) 01/01/17 07:00 Uric Acid 4.4 mg/dL (3.5-8.5) 01/01/17 09:00 Calcium 8.1 mg/dL (8.4-10.5) L 01/01/17 07:00 Phosphorus 3.1 mg/dL (2.5-4.5) 12/30/16 15:20 Magnesium 2.1 mg/dL (1.7-2.2) 12/30/16 15:20 Total Bilirubin 0.4 mg/dL (0.2-1.3) 12/31/16 11:50 AST 34 U/L (15-59) 12/31/16 11:50 ALT 46 U/L (7-56) 12/31/16 11:50 Alkaline Phosphatase 76 U/L (38-133) 12/31/16 11:50 Troponin I < 0.01 ng/mL 12/30/16 15:20 NT-Pro-B Natriuret Pep 69.8 pg/mL (0-450) 12/30/16 15:20 Total Protein 6.3 g/dL (5.8-8.3) 12/31/16 11:50 Albumin 3.1 g/dL (3.0-4.8) 12/31/16 11:50 Globulin 3.3 gm/dL 12/31/16 11:50 Albumin/Globulin Ratio 0.9 (1.1-1.8) L 12/31/16 11:50 Procalcitonin 0.20 NG/ML (0.19-0.49) 12/30/16 15:20 Venous Blood Potassium 3.4 mmol/L (3.6-5.2) L 12/30/16 15:40 Urine Color Yellow (YELLOW) 12/30/16 18:00 Urine Appearance Clear (CLEAR) 12/30/16 18:00 Urine pH 6.5 (4.7-8.0) 12/30/16 18:00 Ur Specific [place] 1.010 (1.005-1.035) 12/30/16 18:00 Urine Protein Negative mg/dL (<30 mg/dL) 12/30/16 18:00 Urine Glucose (UA) Negative mg/dL (NEGATIVE) 12/30/16 18:00 Urine Ketones Negative mg/dL (NEGATIVE) 12/30/16 18:00 Urine Blood Small (NEGATIVE) H 12/30/16 18:00 Urine Nitrate Negative (NEGATIVE) 12/30/16 18:00 Urine Bilirubin Negative (NEGATIVE) 12/30/16 18:00 Urine Urobilinogen 1.0 E.U./dL (<1 E.U./dL) H 12/30/16 18:00 Ur Leukocyte Esterase Negative Darcie/uL (NEGATIVE) 12/30/16 18:00 Urine RBC 1 - 3 /hpf (0-2) 12/30/16 18:00 Urine WBC 0 - 2 /hpf (0-6) 12/30/16 18:00 Discharge Exam - Head Exam Head Exam: ATRAUMATIC, NORMAL INSPECTION, NORMOCEPHALIC Discharge Plan - Discharge Medications Prescriptions: Doxycycline Hyclate [Doryx] 100 mg PO Q12 #14 cap - Follow Up Plan Condition: FAIR Disposition: HOME/ ROUTINE Instructions: Cellulitis (DC), Lung Cancer (DC), Intravenous Chemotherapy (DC) , Chronic Pain (DC), How to Care for Your Implanted Venous Access Port (DC) Referrals: Gary Eli MD [Staff Provider] - Lizzie Leary MD [Staff Provider] - Gary Fermin MD [Staff Provider] -
== END 2017-01-01 14:16 | disposition home or self-care (01) | DRG 603 ==
LOC: ED 13:50 → ERH 16:55 → 5RSO 22:20
PROVIDERS: ADMIT Internal Medicine; ATTEND Internal Medicine
PROC: 3E0F7GC Introduction of Other Therapeutic Substance into Respiratory Tract, Via Natural or Artificial Opening (ICD-10-PCS; principal; 2016-12-31)
DX: L03.115 Cellulitis of right lower limb (principal); R64 Cachexia; C79.51 Secondary malignant neoplasm of bone; C34.90 Malignant neoplasm of unspecified part of unspecified bronchus or lung; J44.9 Chronic obstructive pulmonary disease, unspecified; Z68.1 Body mass index [BMI] 19.9 or less, adult; L03.116 Cellulitis of left lower limb; G89.3 Neoplasm related pain (acute) (chronic); M54.9 Dorsalgia, unspecified; K59.00 Constipation, unspecified; M25.511 Pain in right shoulder; M54.2 Cervicalgia; R21 Rash and other nonspecific skin eruption; Z87.891 Personal history of nicotine dependence; Z88.0 Allergy status to penicillin

== ENCOUNTER 2017-01-14 14:24 | Inpatient (IN) | payer MEDICARE, MEDICAID ==
[2017-01-14] MEDS ORDERED: Sodium Chloride 0.9% 1,000 ML IV STA (15:16)
[2017-01-14] MEDS ORDERED: Morphine 4 mg/ml ISec IVP STA (15:18)
--- NOTE | 2017-01-14 15:19 | ED PDOC ---
Arrival/HPI - General Chief Complaint: Male Genitourinary Time Seen by Provider: 01/14/17 14:50 Historian: Patient - History of Present Illness Narrative History of Present Illness (Text): 01/14/17 15:14 A 56 year old male, whose past medical history includes lung cancer, presents to the emergency department for complaints of blood in the urine, which began 4 days ago. The patient reports dysuria and generalized weakness. He first noticed the hematuria 5 days ago after his chemotherapy session. The patient also has chronic secondary right arm pain with decreased motion in the right shoulder and right hand. He denies any fever, chills, testicular pain, penile pain, rectal pain, or any other complaints at this time. Time/Duration: < week (x4 days) Symptom Onset: Gradual Symptom Course: Unchanged Activities at Onset: Light Context: Home Past Medical History - Provider Review Nursing Documentation Reviewed: Yes - Infectious Disease Hx of Infectious Diseases: None - Cardiac Hx Cardiac Disorders: No - Pulmonary Hx Respiratory Disorders: Yes Hx Chronic Obstructive Pulmonary Disease (COPD): Yes Other/Comment: Stage 4 lung cancer - Neurological Hx Neurological Disorder: No - HEENT Hx HEENT Disorder: No - Renal Hx Renal Disorder: No - Endocrine/Metabolic Hx Endocrine Disorders: No - Hematological/Oncological Hx Blood Disorders: Yes - Integumentary Hx Dermatological Disorder: No - Musculoskeletal/Rheumatological Hx Musculoskeletal Disorders: Yes Hx Falls: No - Gastrointestinal Hx Gastrointestinal Disorders: No - Genitourinary/Gynecological Hx Genitourinary Disorders: No - Psychiatric Hx Psychophysiologic Disorder: Yes Hx Depression: Yes Hx Substance Use: No - Surgical History Hx Musculoskeletal Surgery: Yes (plate placed in back) Hx Orthopedic Surgery: Yes (R shoulder) - Anesthesia Hx Anesthesia: Yes Family/Social History - Physician Review Nursing Documentation Reviewed: Yes Family/Social History: No Known Family HX Smoking Status: Former Smoker Hx Alcohol Use: No Hx Substance Use: No Allergies/Home Meds Allergies/Adverse Reactions: Allergies Penicillins Allergy (Verified 12/30/16 14:26) ANAPHYLAXIS Home Medications: Home Meds Medication Instructions Recorded Confirmed oxyCODONE [oxyCODONE Immediate 30 mg PO Q6 PRN 11/03/16 01/14/17 Release Tab] tiZANidine [Zanaflex] 4 mg PO Q6 11/03/16 01/14/17 fentaNYL 50 mcg/hr [Duragesic 125 mcg TD Q72H 12/11/16 01/14/17 Patch 50 mcg/hr] Cholecalciferol [Vitamin D 1000 IU] 0 iu PO QWK 12/30/16 01/14/17 Folic Acid 1 mg PO DAILY 12/30/16 01/14/17 Furosemide [Lasix] 20 mg PO DAILY 12/30/16 01/14/17 Gabapentin [Neurontin] 300 mg PO QID 12/30/16 01/14/17 Megestrol Acetate [Megace] 40 mg PO BID 12/30/16 01/14/17 Montelukast [Singulair] 10 mg PO DAILY 12/30/16 01/14/17 Nystatin [Nystatin Oral Susp] 100,000 unit PO TID 12/30/16 01/14/17 Lidocaine Ointment 5% 01/14/17 Morphine Sulfate [Ms Contin] 15 mg PO PRN PRN 01/14/17 01/14/17 Pantoprazole [Protonix] 40 mg PO DAILY 01/14/17 01/14/17 Review of Systems - Physician Review All systems were reviewed & negative as marked: Yes - Review of Systems Constitutional: absent: Fevers, Other (chills) Genitourinary Male: Dysuria, Hematuria. absent: Other (No testicular pain, penile pain, rectal pain.) Musculoskeletal: Other (Chronic right arm pain) Physical Exam Vital Signs Reviewed: Yes Vital Signs Temp Pulse Resp BP Pulse Ox 01/14/17 17:00 91 H 18 101/63 96 01/14/17 15:54 98 H 18 94/65 L 96 01/14/17 14:37 98.6 F 100 H 20 92/62 L 95 Temperature: Afebrile Blood Pressure: Hypotensive Pulse: Tachycardic Respiratory Rate: Normal Appearance: Positive for: Well-Appearing, Non-Toxic, Comfortable Pain Distress: None Mental Status: Positive for: Alert and Oriented X 3 - Systems Exam Head: Present: Atraumatic, Normocephalic Pupils: Present: PERRL Conjunctiva: Present: Normal Ears: Present: Normal Mouth: Present: Moist Mucous Membranes Pharnyx: Present: Normal Neck: Present: Normal Range of Motion Respiratory/Chest: Present: Clear to Auscultation, Good Air Exchange. No: Respiratory Distress, Accessory Muscle Use Cardiovascular: Present: Regular Rate and Rhythm, Normal S1, S2. No: Murmurs Abdomen: Present: Normal Bowel Sounds. No: Tenderness, Distention, Peritoneal Signs Rectal: No: Occult Blood, Rectal Tenderness, Gross Blood, Melena, Hemorrhoids, Fissures, Nodule/Mass/Lesions Genitourinary Male: Present: Normal External Genitalia. No: Testicle Tenderness Back: Present: Normal Inspection Upper Extremity: Present: Normal Inspection. No: Cyanosis, Edema, Normal ROM ( Decreased range of motion in right arm ) Lower Extremity: Present: Edema (+2 bilateral pitting edema ) Neurological: Present: GCS=15, CN II-XII Intact, Speech Normal Skin: Present: Warm, Dry, Normal Color. No: Rashes Psychiatric: Present: Alert, Oriented x 3, Normal Insight, Normal Concentration Medical Decision Making ED Course and Treatment: 01/14/17 15:26 Impression: A 56 year old male with hematuria. Differential Diagnosis included but are not limited to: hematuria vs. bladder cancer vs. renal failure vs. UTI Plan: -- Labs -- Morphine, IV fluids -- Urinalysis -- Reassess and disposition Prior Visits: Notes and results from previous visits were reviewed. The patient was last seen in the emergency department for leg swelling on and admitted to the hospital. Progress Notes: 01/14/17 17:37 Case was discussed with Dr. Leary who agrees that since his creatinine has doubled since yesterday he should stay in for observation. Renal Ultrasound already completed yesterday. Case discussed with Dr. Fermin who agrees to place the patient on his service and asked for Dr. Lewis for renal. Patient understands plan and will stay in the hospital. - Lab Interpretations Lab Results: 01/14/17 16:03 01/14/17 16:03 Lab Results 01/14/17 16:03: PT 12.2 H, INR 1.13 H, APTT 39.2 H 01/14/17 16:03: Sodium 130 L, Potassium 5.5 H, Chloride 101, Carbon Dioxide 21, Anion Gap 14, BUN 34 H, Creatinine 3.0 H, Est GFR ( Amer) 26, Est GFR ( Non-Af Amer) 22, Random Glucose 121 H, Calcium 8.5, Total Bilirubin 0.4, AST 31 , ALT 23, Alkaline Phosphatase 102, Total Protein 6.4, Albumin 3.1, Globulin 3.3 , Albumin/Globulin Ratio 0.9 L 01/14/17 16:03: WBC 13.0 H, RBC 2.96 L, Hgb 8.8 L, Hct 27.4 L, MCV 92.6, MCH 29.7, MCHC 32.1, RDW 16.2 H, Plt Count 236, MPV 9.2, Gran % 78.6 H, Lymph % ( Auto) 10.1 L, Becker % (Auto) 10.5 H, Eos % (Auto) 0.6 L, Baso % (Auto) 0.2, Gran # 10.24 H, Lymph # 1.3, Becker # 1.4 H, Eos # 0.1, Baso # 0.02 - Medication Orders Current Medication Orders: Sodium Chloride (Sodium Chloride 0.9%) 1,000 mls @ 100 mls/hr IV .Q10H STA Stop: 01/15/17 01:15 Last Admin: 01/14/17 16:04 Dose: 100 mls/hr Sodium Chloride (Sodium Chloride 0.9%) 1,000 mls @ 100 mls/hr IV .Q10H RBIA Discontinued Medications Morphine Sulfate (Morphine) 4 mg IVP STAT STA Stop: 01/14/17 15:19 Last Admin: 01/14/17 16:04 Dose: 4 mg Sodium Polystyrene Sulfonate (Kayexalate Oral Susp) 15 gm PO STAT STA Stop: 01/14/17 16:40 Last Admin: 01/14/17 17:36 Dose: 15 gm - PA / SERVICE DISPATCHER / Resident Statement MD/ has reviewed & agrees with the documentation as recorded. - Scribe Statement The provider has reviewed the documentation as recorded by the Elhamibraad Haider Provider Scribe Attestation: All medical record entries made by the Yesy were at my direction and personally dictated by me. I have reviewed the chart and agree that the record accurately reflects my personal performance of the history, physical exam, medical decision making, and the department course for this patient. I have also personally directed, reviewed, and agree with the discharge instructions and disposition. Disposition/Present on Arrival - Present on Arrival Any Indicators Present on Arrival: No History of DVT/PE: No History of Uncontrolled Diabetes: No Urinary Catheter: No History of Decub. Ulcer: No History Surgical Site Infection Following: None - Disposition Have Diagnosis and Disposition been Completed?: Yes Diagnosis: Hematuria, Acute on chronic renal failure Disposition: HOSPITALIZED Disposition Time: 17:38 Patient Plan: Observation Condition: FAIR Referrals: PCP,NO [Primary Care Provider] - Follow up with primary Forms: [employer] (Bengali)
[2017-01-14 16:05] LABS: ADD MANUAL DIFF? NO
[2017-01-14 16:09] LABS: BASO # 0.02 K/mm3 (0.0-2.0); BASO % 0.2 % (0.0-3.0); EOS # 0.1 (0.0-0.7); EOS % 0.6 % (1.5-5.0); GRAN # 10.24 (1.4-6.5); GRAN % 78.6 % (50.0-68.0); HEMATOCRIT 27.4 % (42.0-52.0); LYMPH # 1.3 (1.2-3.4); LYMPH % 10.1 % (22.0-35.0); MEAN CELL VOLUME 92.6 fl (80.0-105.0); MEAN CORPUSCULAR HEMOGLOBIN 29.7 pg (25.0-35.0); MEAN CORPUSCULAR HGB CONC 32.1 g/dl (31.0-37.0); MEAN PLATELET VOLUME 9.2 fl (7.0-11.0); MONO # 1.4 (0.1-0.6); MONO % 10.5 % (1.0-6.0); PLATELET COUNT 236 10^3/uL (120.0-450.0); RED CELL DISTRIBUTION WIDTH 16.2 % (11.5-14.5)
[2017-01-14 16:17] LABS: INR 1.13 (0.93-1.08); PARTIAL THROMBOPLASTIN TIME 39.2 Seconds (23.7-30.8)
[2017-01-14 16:20] LABS: ALB/GLOB RATIO 0.9 (1.1-1.8); BILIRUBIN,TOTAL 0.4 mg/dL (0.2-1.3); CALCIUM 8.5 mg/dL (8.4-10.5); TOTAL PROTEIN 6.4 g/dL (5.8-8.3)
[2017-01-14 16:25] LABS: POTASSIUM 5.5 mmol/L (3.6-5.0)
[2017-01-14] MEDS ORDERED: Sod Polystyrene Sulf 15 gm/60 ml Oral Susp PO STA (16:39)
[2017-01-14 17:43] LABS: PH,URINE 7.5 (4.7-8.0); URINE BILIRUBIN SMALL (NEGATIVE); URINE BLOOD LARGE (NEGATIVE); URINE GLUCOSE (UA) NEGATIVE (NEGATIVE); URINE KETONE NEGATIVE (NEGATIVE); URINE LEUKOCYTE ESTERASE SMALL Leu/uL (NEGATIVE); URINE PROTEIN >=300 mg/dL (<30 mg/dL); URINE UROBILINOGEN 0.2 E.U./dL (<1 E.U./dL)
[2017-01-14 17:44] LABS: URINE APPEARANCE CLOUDY (CLEAR)
[2017-01-14 17:46] LABS: URINE COLOR LIGHT RED (YELLOW)
[2017-01-14 17:49] LABS: URINE RBC TNTC /hpf (0-2); URINE WBC 25 - 30 /hpf (0-6)
[2017-01-14] MEDS ORDERED: Ciprofloxacin 400mg/200ml D5W 400 MG/200 ML BAG IVPB STA (17:57)
[2017-01-14] MEDS: Sodium Chloride 0.9% 1,000 ML IV SCH (18:09)
[2017-01-14] MEDS: Albuterol-Ipratrop 3 mg / 0.5 (3 ml) UD IH SCH (21:30)
[2017-01-15 00:22] VITALS: BMI 22.1
[2017-01-15] MEDS ORDERED: Pneumococcal 23-Valent Vaccine IM ONE (00:22)
[2017-01-15] MEDS: Albuterol-Ipratrop 3 mg / 0.5 (3 ml) UD IH SCH ×4 (01:45→22:31)
[2017-01-15] MEDS: HYDROmorphone 1 mg/ml ISec IVP PRN ×6 (02:44→23:56)
[2017-01-15 08:38] LABS: ADD MANUAL DIFF? NO
[2017-01-15 08:40] LABS: BASO # 0.02 K/mm3 (0.0-2.0); BASO % 0.1 % (0.0-3.0); EOS % 0.3 % (1.5-5.0); GRAN # 11.11 (1.4-6.5); GRAN % 77.3 % (50.0-68.0); HEMATOCRIT 26.3 % (42.0-52.0); LYMPH # 1.8 (1.2-3.4); LYMPH % 12.3 % (22.0-35.0); MEAN CORPUSCULAR HEMOGLOBIN 29.7 pg (25.0-35.0); MEAN CORPUSCULAR HGB CONC 32.3 g/dl (31.0-37.0); MEAN PLATELET VOLUME 9.4 fl (7.0-11.0); MONO # 1.4 (0.1-0.6); PLATELET COUNT 208 10^3/uL (120.0-450.0); WHITE BLOOD COUNT 14.4 10^3/ul (4.5-11.0)
[2017-01-15 08:48] LABS: ALB/GLOB RATIO 0.9 (1.1-1.8); BILIRUBIN,TOTAL 0.3 mg/dL (0.2-1.3); POTASSIUM 4.2 mmol/L (3.6-5.0); TOTAL PROTEIN 5.4 g/dL (5.8-8.3)
[2017-01-15 08:53] LABS: CALCIUM 6.7 mg/dL (8.4-10.5)
[2017-01-15] MEDS ORDERED: Calcium Chloride 1000 mg/10 ml Syringe IV ONE (12:06)
[2017-01-15] MEDS: Sodium Chloride 0.9% 1,000 ML IV SCH (13:39)
[2017-01-15] MEDS: Aztreonam 1 Gm in NS 100mL 100 ML IVPB SCH ×2 (13:39→21:23)
[2017-01-15] MEDS ORDERED: guaiFENesin-Codeine 100-10mg/5ml Syrup (5 ml) UD PO PRN (14:09)
--- NOTE | 2017-01-15 14:21 | CP.PCM.CON ---
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 Pt states that he just received his chemotherapy a few days ago and he started getting hematuria which initially started 2 days prior. Yesterday his sister called Dr Leary which stated the patient should come to the ED. He denies burning with urinary, urgency, or frequency. No abdominal pain, nausea or vomiting. No other complaints. Denies any diaz. dizziness, f/c, diarrhea, sob, or chest pain. PMH: COPD, Stage 4 NSCLC mets to T1-T3 with destructive lesion, currently on chemo PSH: Port placement (L arm) FH: Sister of uterin CA, Another family member from lymphoma, His other sister and brother with cancer, Soc Hx: Former heavy smoker, lives at home, sister is best main contact Allergies: Penicillin; anaphylaxis Meds: refer to [facility] Review of Systems - Review of Systems All systems: reviewed and no additional remarkable complaints except (HPI) Past Patient History - Infectious Disease Hx of Infectious Diseases: None - Past Social History Smoking Status: Current Some Days Smoker - CARDIAC Hx Cardiac Disorders: No - PULMONARY Hx Respiratory Disorders: Yes (SMOKES 1 PPD) Hx Chronic Obstructive Pulmonary Disease (COPD): Yes Other/Comment: Stage 4 lung cancer - NEUROLOGICAL Hx Neurological Disorder: No - HEENT Hx HEENT Problems: No - RENAL Hx Chronic Kidney Disease: No - ENDOCRINE/METABOLIC Hx Endocrine Disorders: No - HEMATOLOGICAL/ONCOLOGICAL Hx Blood Disorders: Yes - INTEGUMENTARY Hx Dermatological Problems: No Other/Comment: BILATERAL PITTNG EDEMA T0 FOOT +2 MORE TO RIGHT. - MUSCULOSKELETAL/RHEUMATOLOGICAL Hx Musculoskeletal Disorders: Yes Hx Falls: No Hx Unsteady Gait: Yes - GASTROINTESTINAL Hx Gastrointestinal Disorders: No - GENITOURINARY/GYNECOLOGICAL Hx Genitourinary Disorders: Yes Hx Hematuria: Yes (01-14-17) - PSYCHIATRIC Hx Psychophysiologic Disorder: Yes Hx Depression: Yes Hx Substance Use: No - SURGICAL HISTORY Hx Surgeries: Yes Hx Musculoskeletal Surgery: Yes (plate placed in back) Hx Orthopedic Surgery: Yes (R shoulder) - ANESTHESIA Hx Anesthesia: Yes Meds Allergies/Adverse Reactions: Allergies Allergy/AdvReac Type Severity Reaction Status Date / Time Penicillins Allergy ANAPHYLAXIS Verified 01/14/17 20:53 - Medications Medications: Current Medications Acetaminophen (Tylenol 325mg Tab) 650 mg PO Q4H PRN PRN Reason: Fever >100.5 F Albuterol/Ipratropium (Duoneb 3 Mg/0.5 Mg (3 Ml) Ud) 3 ml [id number] Last Admin: 01/15/17 07:22 Dose: 3 ml Fentanyl (Duragesic) 1 patch TD Q72H [facility] Last Admin: 01/14/17 21:48 Dose: 1 patch Fentanyl (Duragesic) 1 patch TD Q72H [facility] Last Admin: 01/14/17 21:53 Dose: 1 patch Guaifenesin/Codeine Phosphate (Robitussin W/Codeine) 5 ml PO Q4H PRN PRN Reason: Cough and congestion Heparin Sodium (Porcine) (Heparin) 5,000 units SC Q12 BRIA PRN Reason: Protocol Last Admin: 01/15/17 13:39 Dose: 5,000 units Hydromorphone HCl (Dilaudid) 1 mg IVP Q4H PRN PRN Reason: Pain, moderate (4-7) Last Admin: 01/15/17 12:24 Dose: 1 mg Sodium Chloride (Sodium Chloride 0.9%) 1,000 mls @ 100 mls/hr IV .Q10H [facility] Last Admin: 01/15/17 13:39 Dose: 100 mls/hr Aztreonam (Azactam 1 Gm) 100 mls @ 100 mls/hr IVPB Q12 [facility] PRN Reason: Protocol Stop: 01/22/17 10:01 Last Admin: 01/15/17 13:39 Dose: 100 mls/hr Megestrol Acetate (Megace) 400 mg PO DAILY [facility] Ondansetron HCl (Zofran Inj) 4 mg IVP Q4H PRN PRN Reason: Nausea/Vomiting Physical Exam - Constitutional Appears: No Acute Distress - Head Exam Head Exam: ATRAUMATIC, NORMAL INSPECTION, NORMOCEPHALIC - Eye Exam Eye Exam: EOMI, Normal appearance, PERRL Pupil Exam: NORMAL ACCOMODATION, PERRL - ENT Exam ENT Exam: Mucous Membranes Moist, Normal Exam - Respiratory Exam Respiratory Exam: Clear to Auscultation Bilateral, NORMAL BREATHING PATTERN. absent: Wheezes - Cardiovascular Exam Cardiovascular Exam: REGULAR RHYTHM, RRR - GI/Abdominal Exam GI & Abdominal Exam: Normal Bowel Sounds, Soft. absent: Tenderness - Extremities Exam Extremities exam: Positive for: pedal edema (1+ ). Negative for: calf tenderness, tenderness Additional comments: RUE weakness and tenderness, notable muscle wasting - Neurological Exam Neurological exam: Alert, CN II-XII Intact, Oriented x3 - Psychiatric Exam Psychiatric exam: Normal Affect, Normal Mood - Skin Skin Exam: Dry, Intact, Normal Color, Warm Results - Vital Signs Recent Vital Signs: Last Vital Signs Temp 99 F 01/15/17 08:00 Pulse 87 01/15/17 08:00 Resp 20 01/15/17 08:00 BP 140/85 01/15/17 08:00 Pulse Ox 93 L 01/15/17 08:00 - Labs Result Diagrams: 01/15/17 08:30 01/15/17 08:30 Labs: Laboratory Results - last 24 hr 01/15/17 01/15/17 01/15/17 08:30 08:30 12:15 WBC 14.4 H RBC 2.86 L Hgb 8.5 L Hct 26.3 L MCV 92.0 MCH 29.7 MCHC 32.3 RDW 16.0 H Plt Count 208 MPV 9.4 Gran % 77.3 H Lymph % (Auto) 12.3 L [place] % (Auto) 10.0 H Eos % (Auto) 0.3 L Baso % (Auto) 0.1 Gran # 11.11 H Lymph # 1.8 [place] # 1.4 H Eos # 0.0 Baso # 0.02 Sodium 137 Potassium 4.2 Chloride 110 Carbon Dioxide 18 L Anion Gap 13 BUN 29 H Creatinine 3.0 H Est GFR ( Amer) 26 Est GFR (Non-Af Amer) 22 Random Glucose 96 Calcium 6.7 L* TIBC 161 L Total Bilirubin 0.3 AST 38 ALT 27 Alkaline Phosphatase 100 Total Protein 5.4 L Albumin 2.6 L Globulin 2.9 Albumin/Globulin Ratio 0.9 L Blood Type Antibody Screen BBK History Checked 01/15/17 12:15 WBC RBC Hgb Hct MCV MCH MCHC RDW Plt Count MPV Gran % Lymph % (Auto) [place] % (Auto) Eos % (Auto) Baso % (Auto) Gran # Lymph # [place] # Eos # Baso # Sodium Potassium Chloride Carbon Dioxide Anion Gap BUN Creatinine Est GFR ( Amer) Est GFR (Non-Af Amer) Random Glucose Calcium TIBC Total Bilirubin AST ALT Alkaline Phosphatase Total Protein Albumin Globulin Albumin/Globulin Ratio Blood Type A POSITIVE Antibody Screen Negative BBK History Checked Patient has bt Assessment & Plan - Assessment and Plan (Free Text) Assessment: 56 M with pmh of past heavy smoking, is currently on chemo (carboplatin and pemetrexed) for 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 1. AC with Hematuria - ATN from chemo - Possible but unlikely - Bladder & renal US was mainly unremarkable - Nephrology consulted for recs - ID consulted and pt was started on Aztreonam 2. RUE pain - Pain control - Neuro consulted for recs - Pt refused MRI of cervical and thoracic spine to check for progression of dx - Pain management as outpatient 3. Coughing - Cough attributes to severe chest pain - Pulm consulted for recs - Robitussin with codeine 4. Hx of stage 4 non-small cell lung ca mets to thoracic spine - On chemo - carbopaltin and pemetrexed - Pain control Case and plan was reviewed and discussed with Dr Leary
[2017-01-15] MEDS: Megestrol Acetate 40 mg/ml Cup PO SCH (16:12)
--- NOTE | 2017-01-15 17:18 | RAD ---
PROCEDURE: CHEST RADIOGRAPH, 1 VIEW HISTORY: crackles COMPARISON: 12/30/2016 FINDINGS: LUNGS: There is interval asymmetrical elevation of right hemidiaphragm the right now at the mid right lung zone - this is significant change. The right upper lobe previously referenced mass is renoted. And similar in appearance. The overall interstitial lung markings appear abnormally prominent as it did previously. No interval yolie consolidation seen. PLEURA: No pneumothorax or pleural fluid seen. CARDIOVASCULAR: Probable top-normal heart size OSSEOUS STRUCTURES: Cervical fusion noted with hardware as before. VISUALIZED UPPER ABDOMEN: Normal. OTHER FINDINGS: Left PICC line in superior vena cava -right atrial junction as before. IMPRESSION: Interval asymmetrical elevation of the right hemidiaphragm this is a marked interval change. Nerve innervation interval pathology. Interval sub pulmonic pathology are some considerations. Clinical correlation needed. The right upper lobe mass and prominent interstitial lung markings are otherwise unchanged.
--- NOTE | 2017-01-15 18:03 | CP.PCM.CON ---
History of Present Illness - History of Present Illness History of Present Illness: 56 year old male with PMH of COPD, metastatic lung cancer on chemotherapy, history of cellulitis of lower extremities came in to [facility] complaining of hematuria since 5 days ago when he had his last chemotherapy session. He has some urinary frequency as well, but denies flank pain, no nausea or vomiting, no chest pain, no SOB, no fever or chills, no headache or dizziness, no abdominal pain, no diarrhea. Infectious Diseases consult is requested to further evaluate and manage. Review of Systems - Review of Systems All systems: reviewed and no additional remarkable complaints except (as per HPI ) Past Patient History - Infectious Disease Hx of Infectious Diseases: None - Past Social History Smoking Status: Current Some Days Smoker - CARDIAC Hx Cardiac Disorders: No - PULMONARY Hx Respiratory Disorders: Yes (SMOKES 1 PPD) Hx Chronic Obstructive Pulmonary Disease (COPD): Yes Other/Comment: Stage 4 lung cancer - NEUROLOGICAL Hx Neurological Disorder: No - HEENT Hx HEENT Problems: No - RENAL Hx Chronic Kidney Disease: No - ENDOCRINE/METABOLIC Hx Endocrine Disorders: No - HEMATOLOGICAL/ONCOLOGICAL Hx Blood Disorders: Yes - INTEGUMENTARY Hx Dermatological Problems: No Other/Comment: BILATERAL PITTNG EDEMA T0 FOOT +2 MORE TO RIGHT. - MUSCULOSKELETAL/RHEUMATOLOGICAL Hx Musculoskeletal Disorders: Yes Hx Falls: No Hx Unsteady Gait: Yes - GASTROINTESTINAL Hx Gastrointestinal Disorders: No - GENITOURINARY/GYNECOLOGICAL Hx Genitourinary Disorders: Yes Hx Hematuria: Yes (01-14-17) - PSYCHIATRIC Hx Psychophysiologic Disorder: Yes Hx Depression: Yes Hx Substance Use: No - SURGICAL HISTORY Hx Surgeries: Yes Hx Musculoskeletal Surgery: Yes (plate placed in back) Hx Orthopedic Surgery: Yes (R shoulder) - ANESTHESIA Hx Anesthesia: Yes Meds Allergies/Adverse Reactions: Allergies Allergy/AdvReac Type Severity Reaction Status Date / Time Penicillins Allergy ANAPHYLAXIS Verified 01/14/17 20:53 - Medications Medications: Current Medications Acetaminophen (Tylenol 325mg Tab) 650 mg PO Q4H PRN PRN Reason: Fever >100.5 F Albuterol/Ipratropium (Duoneb 3 Mg/0.5 Mg (3 Ml) Ud) 3 ml IH [id number] Last Admin: 01/15/17 07:22 Dose: 3 ml Fentanyl (Duragesic) 1 patch TD Q72H [facility] Last Admin: 01/14/17 21:48 Dose: 1 patch Fentanyl (Duragesic) 1 patch TD Q72H [facility] Last Admin: 01/14/17 21:53 Dose: 1 patch Heparin Sodium (Porcine) (Heparin) 5,000 units SC Q12 [facility] PRN Reason: Protocol Last Admin: 01/14/17 22:30 Dose: 5,000 units Hydromorphone HCl (Dilaudid) 1 mg IVP Q4H PRN PRN Reason: Pain, moderate (4-7) Last Admin: 01/15/17 08:23 Dose: 1 mg Sodium Chloride (Sodium Chloride 0.9%) 1,000 mls @ 100 mls/hr IV .Q10H [facility] Last Admin: 01/14/17 18:09 Dose: Not Given Calcium Chloride 1,000 mg/ (Sodium Chloride) 110 mls @ 110 mls/hr IV ONCE ONE Stop: 01/15/17 10:14 Ondansetron HCl (Zofran Inj) 4 mg IVP Q4H PRN PRN Reason: Nausea/Vomiting Physical Exam - Constitutional Appears: Non-toxic, No Acute Distress, Cachectic - Head Exam Head Exam: NORMAL INSPECTION - Neck Exam Neck exam: Negative for: Meningismus - Respiratory Exam Respiratory Exam: Decreased Breath Sounds - Cardiovascular Exam Cardiovascular Exam: +S1, +S2 - GI/Abdominal Exam GI & Abdominal Exam: Soft. absent: Tenderness Results - Vital Signs Recent Vital Signs: Last Vital Signs Temp 99 F 01/15/17 08:00 Pulse 87 01/15/17 08:00 Resp 20 01/15/17 08:00 BP 140/85 01/15/17 08:00 Pulse Ox 93 L 01/15/17 08:00 - Labs Result Diagrams: 01/15/17 08:30 01/15/17 08:30 Labs: Laboratory Results - last 24 hr 01/15/17 01/15/17 08:30 08:30 WBC 14.4 H RBC 2.86 L Hgb 8.5 L Hct 26.3 L MCV 92.0 MCH 29.7 MCHC 32.3 RDW 16.0 H Plt Count 208 MPV 9.4 Gran % 77.3 H Lymph % (Auto) 12.3 L Sac % (Auto) 10.0 H Eos % (Auto) 0.3 L Baso % (Auto) 0.1 Gran # 11.11 H Lymph # 1.8 Sac # 1.4 H Eos # 0.0 Baso # 0.02 Sodium 137 Potassium 4.2 Chloride 110 Carbon Dioxide 18 L Anion Gap 13 BUN 29 H Creatinine 3.0 H Est GFR ( Amer) 26 Est GFR (Non-Af Amer) 22 Random Glucose 96 Calcium 6.7 L* Total Bilirubin 0.3 AST 38 ALT 27 Alkaline Phosphatase 100 Total Protein 5.4 L Albumin 2.6 L Globulin 2.9 Albumin/Globulin Ratio 0.9 L Assessment & Plan - Assessment and Plan (Free Text) Plan: Assessment Hematuria and urinary frequency, probably UTI with gram negative bacilli Right lung mass, which is poorly-differentiated non-small cell lung cancer on pathology S/P biopsy 10/16/2016 on radiotherapy and chemotherapy COPD Plan started patient on Azactam and will follow up identification and sensitivities of the gram negative bacilli in the urine; follow up blood cx and PSA levels will monitor clinically suggest Urology evaluation
[2017-01-15 18:46] LABS: FOLATE > 20.0 ng/mL
--- NOTE | 2017-01-15 20:05 | CP.PCM.PN ---
Subjective - Date & Time of Evaluation Date of Evaluation: 01/14/17 Time of Evaluation: 19:00 - Subjective Subjective: c/o hematuria, leg edema, rt arm weakness. patient noticed hematuria x 4 days no fver , currently on chemotherapy, last one within 1week ago. rt arm weakness for few days neck rt side chest pain,, leg edema both legsx 2 weeks, no chills, no redness no acute distress Objective - Vital Signs/Intake and Output Vital Signs (last 24 hours): Temp Pulse Resp BP Pulse Ox 98.5 F 87 18 165/77 H 96 01/15/17 16:00 01/15/17 16:00 01/15/17 16:00 01/15/17 16:00 01/15/17 16:00 Intake and Output: 01/15/17 01/16/17 18:59 06:59 Intake Total 1740 Output Total 400 Balance 1340 - Medications Medications: Current Medications Acetaminophen (Tylenol 325mg Tab) 650 mg PO Q4H PRN PRN Reason: Fever >100.5 F Albuterol/Ipratropium (Duoneb 3 Mg/0.5 Mg (3 Ml) Ud) 3 ml IH [id number] [facility] Last Admin: 01/15/17 17:00 Dose: 3 ml Fentanyl (Duragesic) 1 patch TD Q72H [facility] Last Admin: 01/14/17 21:48 Dose: 1 patch Fentanyl (Duragesic) 1 patch TD Q72H [facility] Last Admin: 01/14/17 21:53 Dose: 1 patch Guaifenesin/Codeine Phosphate (Robitussin W/Codeine) 5 ml PO Q4H PRN PRN Reason: Cough and congestion Heparin Sodium (Porcine) (Heparin) 5,000 units SC Q12 BRIA PRN Reason: Protocol Last Admin: 01/15/17 13:39 Dose: 5,000 units Hydromorphone HCl (Dilaudid) 1 mg IVP Q4H PRN PRN Reason: Pain, moderate (4-7) Last Admin: 01/15/17 16:16 Dose: 1 mg Aztreonam (Azactam 1 Gm) 100 mls @ 100 mls/hr IVPB Q12 [facility] PRN Reason: Protocol Stop: 01/22/17 10:01 Last Admin: 01/15/17 13:39 Dose: 100 mls/hr Dextrose/Sodium Chloride (Dextrose 5%/0.9% Ns 1000 Ml) 1,000 mls @ 75 mls/hr IV .[id number] [facility] Megestrol Acetate (Megace) 400 mg PO DAILY [facility] Last Admin: 01/15/17 16:12 Dose: 400 mg Ondansetron HCl (Zofran Inj) 4 mg IVP Q4H PRN PRN Reason: Nausea/Vomiting - Labs Labs: 01/15/17 08:30 01/15/17 08:30 PT 12.2 Seconds (9.9-11.8) H 01/14/17 16:03 INR 1.13 (0.93-1.08) H 01/14/17 16:03 APTT 39.2 Seconds (23.7-30.8) H 01/14/17 16:03 - Constitutional Appears: Older Than Stated Age, Cachectic - Head Exam Head Exam: ATRAUMATIC, NORMAL INSPECTION, NORMOCEPHALIC - Eye Exam Eye Exam: EOMI, Normal appearance, PERRL Pupil Exam: NORMAL ACCOMODATION, PERRL - ENT Exam ENT Exam: Mucous Membranes Moist, Normal Exam - Neck Exam Neck Exam: Full ROM, Normal Inspection, Tenderness. absent: Lymphadenopathy - Respiratory Exam Respiratory Exam: Rhonchi, Wheezes - Cardiovascular Exam Cardiovascular Exam: REGULAR RHYTHM, +S1, +S2. absent: Murmur - GI/Abdominal Exam GI & Abdominal Exam: Soft, Normal Bowel Sounds. absent: Tenderness - Rectal Exam Rectal Exam: Deferred - Extremities Exam Extremities Exam: Pedal Edema - Back Exam Back Exam: NORMAL INSPECTION - Neurological Exam Neuro motor strength exam: Right Upper Extremity: 3 - Psychiatric Exam Psychiatric exam: Flat Affect - Skin Skin Exam: Normal Color Assessment and Plan (1) Edema of both legs Status: Acute (2) Hematuria Status: Acute (3) Intractable pain Status: Acute (4) Lung cancer Status: Acute (5) Neck pain Status: Acute - Assessment and Plan (Free Text) Assessment: acute renal failure Plan: iv fluid, renal consult.oncology consult, id consult pain managment, iv dilaudiud, duragesic patch,
[2017-01-15] MEDS: Dextrose 5%/0.9% NS 1,000 ML IV SCH (20:17)
--- NOTE | 2017-01-16 00:54 | CON ---
DATE: 01/15/2017 REASON FOR CONSULTATION: Acute kidney injury, anemia, hematuria. HISTORY OF PRESENTING ILLNESS: A 56-year-old male previously unknown to me, was admitted on 01/13 because of complaints of hematuria. On questioning, the patient reports history of a right lung cancer, cancer was diagnosed in 09/2016. He received 10 sessions of radiation. Currently, receiving chemotherapy. So far he has had 3 sessions. Last session was 1 week ago on 01/08/2017. Chemotherapy was carboplatin plus Imitrex. The patient developed blood in the urine 4 days later. No dysuria. No fever, no chills. No abdominal pain, no nausea, no vomiting, no diarrhea. No shortness of breath. He was advised to go to the emergency room. In the emergency room, his initial hemoglobin was found to be 8.8, sodium was found to be 130, potassium of 5.5, creatinine of 3.0. His creatinine was 1.7 the day before and it was 0.8 on 01/10. As per the oncologist's note, the patient has stage IV lung cancer with mets to the thoracic spine, T1-T3. PAST MEDICAL AND SURGICAL HISTORY: COPD, stage IV lung cancer with mets to T1-T3, on carboplatin based chemo, last chemo was 1 week ago. FAMILY HISTORY: Uterine cancer in sister. SOCIAL HISTORY: Former heavy smoker, smoked 2 packs per day for 40 plus years, quit in September. Alcohol, social, no IV drug abuse. ALLERGIES: PENICILLIN. MEDICATIONS: Included Azactam 1 g q. 12, Dilaudid, DuoNeb, Duragesic, heparin, Megace, guaifenesin, normal saline at 100, Tylenol, Zofran. The patient also received ciprofloxacin, Kayexalate 1 dose. The patient had a renal ultrasound and bladder ultrasound of the which showed unremarkable kidneys, both kidneys to be 11.3 and 12.2 cm. Bladder ultrasound showed no postvoid residual. REVIEW OF SYSTEMS: All systems are reviewed, pertinent positives as mentioned in the history of presenting illness, rest unremarkable. PHYSICAL EXAMINATION: GENERAL: Middle-aged male lying in bed in no acute distress. VITAL SIGNS: Blood pressure 140/85, heart rate 87, respiratory rate 20, T-max 99. HEENT: Normocephalic, atraumatic, positive pallor. NECK: Supple, no JVD. LUNGS: Bilateral equal air entry. Crackles, bilaterally left greater than right. CARDIAC: S1 and S2. Regular rate and rhythm. No murmur, no rub. ABDOMEN: Soft, nondistended, nontender. Bowel sounds present. EXTREMITIES: 2+ pitting edema of the lower extremities. INTAKE AND OUTPUT: 240/not charted. LABORATORY DATA Sodium 137, potassium 4.2, chloride 110, CO2 of 18, BUN 29, creatinine 3.0, glucose 96, calcium 6.7, albumin 2.6, corrected calcium is 7.8. WBC 14.4, hemoglobin 8.5, hematocrit 26, platelets 208. Urinalysis: Light red, cloudy, pH 7.5, specific gravity 1.015, protein greater than 300, blood large, bilirubin small, leukocyte esterase small, rbc's too numerous to count. Urine culture: Gram-negative emory. Chest x-ray not available. ASSESSMENT: 1. Acute kidney injury in the setting of hematuria, urinary tract infection, recent bladder toxic chemotherapy. 2. Severe anemia. 3. Leukocytosis. 4. Hematuria/proteinuria. 5. Metastatic lung cancer with bone metastasis, status post chemotherapy with carboplatin and Pemetrexed 1 week ago. PLAN: 1. Follow up urine culture. 2. Continue empiric antibiotics. 3. Continue IV fluids. 4. Chest x-ray stat. The patient has crackles bilaterally. 5. Check iron stores. 6. Monitor H and H closely. 7. Monitor white count closely. 8. Avoid nephrotoxins. 9. Check vitamin D since the patient is hypocalcemic. 10. Monitor urine output closely. 11. Monitor daily labs. Thank you for the courtesy of this consultation. We will follow this patient closely with you. Brenda Meléndez MD
[2017-01-16] MEDS: Albuterol-Ipratrop 3 mg / 0.5 (3 ml) UD IH SCH ×4 (03:10→20:38)
[2017-01-16] MEDS: HYDROmorphone 1 mg/ml ISec IVP PRN ×5 (05:58→22:24)
[2017-01-16 07:30] LABS: ADD MANUAL DIFF? NO
[2017-01-16 07:36] LABS: BASO # 0.02 K/mm3 (0.0-2.0); BASO % 0.2 % (0.0-3.0); EOS # 0.1 (0.0-0.7); EOS % 0.6 % (1.5-5.0); GRAN # 6.75 (1.4-6.5); GRAN % 76.4 % (50.0-68.0); HEMATOCRIT 25.4 % (42.0-52.0); LYMPH # 0.9 (1.2-3.4); LYMPH % 9.6 % (22.0-35.0); MEAN CORPUSCULAR HEMOGLOBIN 29.3 pg (25.0-35.0); MEAN CORPUSCULAR HGB CONC 31.9 g/dl (31.0-37.0); MEAN PLATELET VOLUME 9.4 fl (7.0-11.0); MONO # 1.2 (0.1-0.6); MONO % 13.2 % (1.0-6.0); PLATELET COUNT 160 10^3/uL (120.0-450.0); RED CELL DISTRIBUTION WIDTH 16.4 % (11.5-14.5); WHITE BLOOD COUNT 8.8 10^3/ul (4.5-11.0)
[2017-01-16 07:55] LABS: IRON 28 ug/dL (45-180)
[2017-01-16 08:08] LABS: ALB/GLOB RATIO 0.9 (1.1-1.8); BILIRUBIN,TOTAL 0.5 mg/dL (0.2-1.3); CALCIUM 8.5 mg/dL (8.4-10.5); TOTAL PROTEIN 5.8 g/dL (5.8-8.3)
[2017-01-16] MEDS: Aztreonam 1 Gm in NS 100mL 100 ML IVPB SCH ×2 (09:13→21:42)
[2017-01-16] MEDS: Megestrol Acetate 40 mg/ml Cup PO SCH (09:18)
[2017-01-16] MEDS: Dextrose 5%/0.9% NS 1,000 ML IV SCH (09:32)
[2017-01-16] MEDS ORDERED: Darbepoetin Alfa 60 mcg/ml Inj SC ONE (10:34)
[2017-01-16] MEDS ORDERED: HYDROmorphone 0.5 mg/0.5 ml ISec IVP STA (10:53)
--- NOTE | 2017-01-16 12:15 | CT ---
PROCEDURE: CT Chest without contrast HISTORY: Elevated R hemidiaphram COMPARISON: 11/25/2016 TECHNIQUE: Contiguous axial images were obtained through the chest without intravenous contrast enhancement. Sagittal and coronal reconstructions were performed. Radiation dose (DLP): 313.13 mGy-cm. This CT exam was performed using one or more of the following dose reduction techniques: Automated exposure control, adjustment of the mA and/or kV according to patient size, and/or use of iterative reconstruction technique. FINDINGS: LUNGS: Right apical pleural-based mass again identified with gross lie cysts of portions of the C7, T1 and T2 vertebrae and the posterior medial aspect of the 1st through 3rd ribs. Unchanged from previous. Nodular right apical calcifications, likely granulomatous, with associated fibrotic scar. Scattered punctate parenchymal calcifications in right lung consistent with old granulomatous disease. New multifocal patchy opacity in the left upper lobe, possibly infectious. Joe infiltrate anterior segment left upper lobe, new since previous. New infiltrate superior segment left lower lobe. Subpleural emphysema. This is predominantly seen in the lung apices. Mild bullous change left apex. Bilateral lower lobe compressive atelectasis, right greater than left, secondary to pleural effusions. MEDIASTINUM: Unremarkable thoracic aorta. No aneurysm. Normal-sized heart. Left PICC catheter. No pericardial effusion Main pulmonary artery unremarkable. No vascular congestion. . No lymphadenopathy. Nodular calcifications in the mediastinum and left hilum consistent with old granulomatous disease. PLEURA: Small right pleural effusion and trace left pleural effusion. No pneumothorax. BONES: Lytic neoplasm involving C7 through T3 vertebrae as well as posterior medial aspect right 1st through 3rd rib. No other lytic or blastic osseous lesions are identified. UPPER ABDOMEN: Grossly unremarkable. OTHER FINDINGS: None. IMPRESSION: Right apical neoplasm with associated pleural thickening and lie cysts of multiple vertebrae and posterior right ribs. Extensive granulomatous calcification in right lung as well as in mediastinum and left hilum. Small right pleural effusion and trace left pleural effusion. Bilateral lower lobe compressive atelectasis. Multifocal infiltrates in the left upper lobe and superior segment left lower lobe. Please correlate for possible pneumonia. Additional minor findings as above.
[2017-01-16] MEDS: guaiFENesin-Codeine 100-10mg/5ml Syrup (5 ml) UD PO SCH ×3 (12:30→22:23)
--- NOTE | 2017-01-16 13:03 | CP.PCM.PN ---
Subjective - Date & Time of Evaluation Date of Evaluation: 01/16/17 Time of Evaluation: 07:20 - Subjective Subjective: Heme/onc note for Dr Leary: Pt seen and examined at bedside. No acute events overnight. Denies any more episodes of hematuria. He c/o of some shortness of breath but denies any chest pain. He also c/o some RUE pain and weakness. Denies any f/c, n/v, cp, abd pain , bm changes. Objective - Vital Signs/Intake and Output Vital Signs (last 24 hours): Temp Pulse Resp BP Pulse Ox 98.7 F 107 H 20 144/87 96 01/16/17 08:00 01/16/17 08:00 01/16/17 08:00 01/16/17 08:00 01/16/17 08:00 Intake and Output: 01/16/17 01/16/17 06:59 18:59 Intake Total 2940 Output Total 1050 Balance 1890 - Medications Medications: Current Medications Acetaminophen (Tylenol 325mg Tab) 650 mg PO Q4H PRN PRN Reason: Fever >100.5 F Albuterol/Ipratropium (Duoneb 3 Mg/0.5 Mg (3 Ml) Ud) 3 ml IH [id number] [facility] Last Admin: 01/16/17 08:13 Dose: 3 ml Fentanyl (Duragesic) 1 patch TD Q72H [facility] Last Admin: 01/14/17 21:48 Dose: 1 patch Fentanyl (Duragesic) 1 patch TD Q72H [facility] Last Admin: 01/14/17 21:53 Dose: 1 patch Guaifenesin/Codeine Phosphate (Robitussin W/Codeine) 5 ml PO Q6H [facility] Last Admin: 01/16/17 12:30 Dose: 5 ml Heparin Sodium (Porcine) (Heparin) 5,000 units SC Q12 [facility] PRN Reason: Protocol Last Admin: 01/16/17 09:18 Dose: 5,000 units Hydromorphone HCl (Dilaudid) 1 mg IVP Q4H PRN PRN Reason: Pain, moderate (4-7) Last Admin: 01/16/17 10:04 Dose: 1 mg Aztreonam (Azactam 1 Gm) 100 mls @ 100 mls/hr IVPB Q12 [facility] PRN Reason: Protocol Stop: 01/22/17 10:01 Last Admin: 01/16/17 09:13 Dose: 100 mls/hr Dextrose/Sodium Chloride (Dextrose 5%/0.9% Ns 1000 Ml) 1,000 mls @ 75 mls/hr IV .[id number] [facility] Last Admin: 01/16/17 09:32 Dose: 75 mls/hr Iron Sucrose 200 mg/ Sodium (Chloride) 110 mls @ 110 mls/hr IVPB DAILY [facility] Stop: 01/21/17 10:01 Last Admin: 01/16/17 12:26 Dose: 110 mls/hr Megestrol Acetate (Megace) 400 mg PO DAILY [facility] Last Admin: 01/16/17 09:18 Dose: 400 mg Ondansetron HCl (Zofran Inj) 4 mg IVP Q4H PRN PRN Reason: Nausea/Vomiting Oxycodone HCl (Oxycodone Immediate Release Tab) 30 mg PO Q4H PRN PRN Reason: Pain, severe (8-10) - Labs Labs: 01/16/17 07:28 01/16/17 07:28 PT 12.2 Seconds (9.9-11.8) H 01/14/17 16:03 INR 1.13 (0.93-1.08) H 01/14/17 16:03 APTT 39.2 Seconds (23.7-30.8) H 01/14/17 16:03 - Constitutional Appears: No Acute Distress - Head Exam Head Exam: ATRAUMATIC, NORMAL INSPECTION, NORMOCEPHALIC - Eye Exam Eye Exam: EOMI, Normal appearance, PERRL Pupil Exam: NORMAL ACCOMODATION, PERRL - ENT Exam ENT Exam: Mucous Membranes Moist, Normal Exam - Neck Exam Neck Exam: absent: Lymphadenopathy - Respiratory Exam Respiratory Exam: Clear to Ausculation Bilateral. absent: Rales, Rhonchi, Wheezes - Cardiovascular Exam Cardiovascular Exam: RRR, +S1, +S2 - GI/Abdominal Exam GI & Abdominal Exam: Soft. absent: Distended, Tenderness - Extremities Exam Extremities Exam: absent: Calf Tenderness, Pedal Edema Additional comments: RUE weakness - Neurological Exam Neurological Exam: Alert, Awake, Oriented x3 - Psychiatric Exam Psychiatric exam: Normal Affect, Normal Mood - Skin Skin Exam: Dry, Intact, Normal Color, Warm Assessment and Plan - Assessment and Plan (Free Text) Assessment: 56 M with pmh of past heavy smoking, is currently on chemo (carboplatin and pemetrexed) for stage 4 non-small cell lung carcinoma mets to thoracic spine T1- T3 presents with AC and UTI with hematuria now resolved. 1. AC with Hematuria and uti - Cr 3--> 3.8 today - ATN from chemo - Possible but unlikely - Bladder & renal US was mainly unremarkable - Nephrology consulted for recs - started Aranesp - ID consulted -cont Aztreonam 2. Sob - possible pneumonia - CT chest shows some L sided multifocal infiltrate and possible pneumonia - Cough attributes to severe chest pain - Pulm consulted for recs - Robitussin with codeine prn changed to scheduled - ID consulted regarding possible pneumonia - will get procal cont aztreonam 3. RUE pain - Pain control - Neuro consulted for recs - Pt refused MRI of cervical and thoracic spine to check for progression of dx - Pain management as outpatient 4. Hx of stage 4 non-small cell lung ca mets to thoracic spine - On chemo - carboplatin and pemetrexed - Pain control Case and plan was reviewed and discussed with Dr Leary
--- NOTE | 2017-01-16 13:25 | CP.PCM.CON ---
<Lazaro Barboza - Last Filed: 01/16/17 13:30> History of Present Illness - History of Present Illness History of Present Illness: Neurology Progress Note for Dr. Booker Reason for Consult: RUE weakness 56 y/o M with PMH of COPD and lung cancer, currently on chemo, presented initially with hematuria. Pt recently received chemotherapy and after session patient began developing hematuria. Pt was advised by Oncologist to come to the ED. Pt was recently seen last month for upper extremity weakness. At that time, RUE weakness and pain were found to be secondary to right lung mass adjacent to the T1 and T2 vertebral bodies. The mass at this time was also thought to be approaching the brachial plexus. At this time, the patient states his weakness and pain are the same that they were the last time he was in the hospital. Pt denies no worsening of symptoms or changes to medication. Denies CP, SOB, N/V/D , dizziness, syncope, headache. PMH: COPD, lung cancer PSH: left arm port FH: Uterine cancer Social Hx: Former smoker, denies alcohol or illicit drug use Allergies: Penicillin Meds: Reviewed, as per MAR Review of Systems - Review of Systems Review of Systems: 13 point review of systems as per HPI, otherwise negative Past Patient History - Infectious Disease Hx of Infectious Diseases: None - Past Social History Smoking Status: Current Some Days Smoker - CARDIAC Hx Cardiac Disorders: No - PULMONARY Hx Respiratory Disorders: Yes (SMOKES 1 PPD) Hx Chronic Obstructive Pulmonary Disease (COPD): Yes Other/Comment: Stage 4 lung cancer - NEUROLOGICAL Hx Neurological Disorder: No - HEENT Hx HEENT Problems: No - RENAL Hx Chronic Kidney Disease: No - ENDOCRINE/METABOLIC Hx Endocrine Disorders: No - HEMATOLOGICAL/ONCOLOGICAL Hx Blood Disorders: Yes - INTEGUMENTARY Hx Dermatological Problems: No Other/Comment: BILATERAL PITTNG EDEMA T0 FOOT +2 MORE TO RIGHT. - MUSCULOSKELETAL/RHEUMATOLOGICAL Hx Musculoskeletal Disorders: Yes Hx Falls: No Hx Unsteady Gait: Yes - GASTROINTESTINAL Hx Gastrointestinal Disorders: No - GENITOURINARY/GYNECOLOGICAL Hx Genitourinary Disorders: Yes Hx Hematuria: Yes (01-14-17) - PSYCHIATRIC Hx Psychophysiologic Disorder: Yes Hx Depression: Yes Hx Substance Use: No - SURGICAL HISTORY Hx Surgeries: Yes Hx Musculoskeletal Surgery: Yes (plate placed in back) Hx Orthopedic Surgery: Yes (R shoulder) - ANESTHESIA Hx Anesthesia: Yes Meds Allergies/Adverse Reactions: Allergies Allergy/AdvReac Type Severity Reaction Status Date / Time Penicillins Allergy ANAPHYLAXIS Verified 01/14/17 20:53 - Medications Medications: Current Medications Acetaminophen (Tylenol 325mg Tab) 650 mg PO Q4H PRN PRN Reason: Fever >100.5 F Albuterol/Ipratropium (Duoneb 3 Mg/0.5 Mg (3 Ml) Ud) 3 ml IH [id number] [facility] Last Admin: 01/16/17 08:13 Dose: 3 ml Fentanyl (Duragesic) 1 patch TD Q72H [facility] Last Admin: 01/14/17 21:48 Dose: 1 patch Fentanyl (Duragesic) 1 patch TD Q72H [facility] Last Admin: 01/14/17 21:53 Dose: 1 patch Guaifenesin/Codeine Phosphate (Robitussin W/Codeine) 5 ml PO Q6H [facility] Last Admin: 01/16/17 12:30 Dose: 5 ml Heparin Sodium (Porcine) (Heparin) 5,000 units SC Q12 [facility] PRN Reason: Protocol Last Admin: 01/16/17 09:18 Dose: 5,000 units Hydromorphone HCl (Dilaudid) 1 mg IVP Q4H PRN PRN Reason: Pain, moderate (4-7) Last Admin: 01/16/17 10:04 Dose: 1 mg Aztreonam (Azactam 1 Gm) 100 mls @ 100 mls/hr IVPB Q12 [facility] PRN Reason: Protocol Stop: 01/22/17 10:01 Last Admin: 01/16/17 09:13 Dose: 100 mls/hr Dextrose/Sodium Chloride (Dextrose 5%/0.9% Ns 1000 Ml) 1,000 mls @ 75 mls/hr IV .[id number] [facility] Last Admin: 01/16/17 09:32 Dose: 75 mls/hr Iron Sucrose 200 mg/ Sodium (Chloride) 110 mls @ 110 mls/hr IVPB DAILY [facility] Stop: 01/21/17 10:01 Last Admin: 01/16/17 12:26 Dose: 110 mls/hr Megestrol Acetate (Megace) 400 mg PO DAILY [facility] Last Admin: 01/16/17 09:18 Dose: 400 mg Ondansetron HCl (Zofran Inj) 4 mg IVP Q4H PRN PRN Reason: Nausea/Vomiting Oxycodone HCl (Oxycodone Immediate Release Tab) 30 mg PO Q4H PRN PRN Reason: Pain, severe (8-10) Physical Exam - Constitutional Appears: Non-toxic, No Acute Distress - Head Exam Head Exam: ATRAUMATIC, NORMAL INSPECTION, NORMOCEPHALIC - Eye Exam Eye Exam: EOMI - ENT Exam ENT Exam: Mucous Membranes Moist - Respiratory Exam Respiratory Exam: Accessory Muscle Use, NORMAL BREATHING PATTERN. absent: Rales , Rhonchi, Wheezes - Cardiovascular Exam Cardiovascular Exam: RRR, +S1, +S2 - GI/Abdominal Exam GI & Abdominal Exam: Normal Bowel Sounds, Soft. absent: Tenderness - Extremities Exam Extremities exam: Negative for: calf tenderness, pedal edema - Neurological Exam Neurological exam: Alert, CN II-XII Intact, Oriented x3 Additional comments: 3/5 muscle strength in RUE Other extremities muscle strength is 5/5 Sensation intact No dysmetria Appropriate muscle tone - Psychiatric Exam Psychiatric exam: Normal Affect, Normal Mood - Skin Skin Exam: Intact, Normal Color, Warm Results - Vital Signs Recent Vital Signs: Last Vital Signs Temp 98.7 F 01/16/17 08:00 Pulse 107 H 01/16/17 08:00 Resp 20 01/16/17 08:00 BP 144/87 01/16/17 08:00 Pulse Ox 96 01/16/17 08:00 - Labs Result Diagrams: 01/16/17 07:28 01/16/17 07:28 Labs: Laboratory Results - last 24 hr 01/15/17 01/15/17 01/15/17 08:30 12:15 15:23 WBC RBC Hgb Hct MCV MCH MCHC RDW Plt Count MPV Gran % Lymph % (Auto) Dunn % (Auto) Eos % (Auto) Baso % (Auto) Gran # Lymph # Dunn # Eos # Baso # Sodium Potassium Chloride Carbon Dioxide Anion Gap BUN Creatinine Est GFR ( Amer) Est GFR (Non-Af Amer) Random Glucose Calcium Phosphorus 4.2 Iron TIBC % Saturation Ferritin 747.0 Total Bilirubin AST ALT Alkaline Phosphatase Total Protein Albumin Globulin Albumin/Globulin Ratio Prostate Specific Ag 25-OH Vitamin D Total Folate > 20.0 Ur Random Creatinine 28 Ur Random Sodium 59 01/16/17 01/16/17 01/16/17 07:28 07:28 07:28 WBC RBC Hgb Hct MCV MCH MCHC RDW Plt Count MPV Gran % Lymph % (Auto) Dunn % (Auto) Eos % (Auto) Baso % (Auto) Gran # Lymph # Dunn # Eos # Baso # Sodium Potassium Chloride Carbon Dioxide Anion Gap BUN Creatinine Est GFR ( Amer) Est GFR (Non-Af Amer) Random Glucose Calcium Phosphorus Iron 28 L TIBC 151 L % Saturation 18 L Ferritin Total Bilirubin AST ALT Alkaline Phosphatase Total Protein Albumin Globulin Albumin/Globulin Ratio Prostate Specific Ag 0.238 25-OH Vitamin D Total 16.2 L Folate Ur Random Creatinine Ur Random Sodium 01/16/17 01/16/17 07:28 07:28 WBC 8.8 D RBC 2.76 L Hgb 8.1 L Hct 25.4 L MCV 92.0 MCH 29.3 MCHC 31.9 RDW 16.4 H Plt Count 160 MPV 9.4 Gran % 76.4 H Lymph % (Auto) 9.6 L Dunn % (Auto) 13.2 H Eos % (Auto) 0.6 L Baso % (Auto) 0.2 Gran # 6.75 H Lymph # 0.9 L Dunn # 1.2 H Eos # 0.1 Baso # 0.02 Sodium 138 Potassium 5.0 Chloride 106 Carbon Dioxide 20 L Anion Gap 17 BUN 35 H Creatinine 3.8 H Est GFR ( Amer) 20 Est GFR (Non-Af Amer) 16 Random Glucose 93 Calcium 8.5 Phosphorus Iron TIBC % Saturation Ferritin Total Bilirubin 0.5 AST 38 ALT 32 Alkaline Phosphatase 107 Total Protein 5.8 Albumin 2.7 L Globulin 3.1 Albumin/Globulin Ratio 0.9 L Prostate Specific Ag 25-OH Vitamin D Total Folate Ur Random Creatinine Ur Random Sodium Assessment & Plan - Assessment and Plan (Free Text) Plan: 56 y/o M with PMH of COPD and lung cancer presents with hematuria and RUE weakness secondary to right lung apex mass. Right lung mass is adjacent to the T1 and T2 vertebral bodies which can contribute to weakness and pain in right arm. Patient was previously recommended to have neurosurgery for decompression which he denied. At this time, management will be similar to previous admission. Patient is neurologically stable at this time, will sign off. Please reconsult as needed. Plan: Lyrica for neuropathic pain Physical therapy Occupational therapy Chemotherapy for mass Urology follow up for hematuria Tamra, PGY-2 <Mathew Booker - Last Filed: 01/16/17 16:52> Meds - Medications Medications: Current Medications Acetaminophen (Tylenol 325mg Tab) 650 mg PO Q4H PRN PRN Reason: Fever >100.5 F Albuterol/Ipratropium (Duoneb 3 Mg/0.5 Mg (3 Ml) Ud) 3 ml IH [id number] [facility] Last Admin: 01/16/17 14:20 Dose: 3 ml Fentanyl (Duragesic) 1 patch TD Q72H [facility] Last Admin: 01/14/17 21:48 Dose: 1 patch Fentanyl (Duragesic) 1 patch TD Q72H [facility] Last Admin: 01/14/17 21:53 Dose: 1 patch Guaifenesin/Codeine Phosphate (Robitussin W/Codeine) 5 ml PO Q6H [facility] Last Admin: 01/16/17 12:30 Dose: 5 ml Heparin Sodium (Porcine) (Heparin) 5,000 units SC Q12 [facility] PRN Reason: Protocol Last Admin: 01/16/17 09:18 Dose: 5,000 units Hydromorphone HCl (Dilaudid) 1 mg IVP Q4H PRN PRN Reason: Pain, moderate (4-7) Last Admin: 01/16/17 14:29 Dose: 1 mg Aztreonam (Azactam 1 Gm) 100 mls @ 100 mls/hr IVPB Q12 [facility] PRN Reason: Protocol Stop: 01/22/17 10:01 Last Admin: 01/16/17 09:13 Dose: 100 mls/hr Dextrose/Sodium Chloride (Dextrose 5%/0.9% Ns 1000 Ml) 1,000 mls @ 75 mls/hr IV .[id number] [facility] Last Admin: 01/16/17 09:32 Dose: 75 mls/hr Iron Sucrose 200 mg/ Sodium (Chloride) 110 mls @ 110 mls/hr IVPB DAILY [facility] Stop: 01/21/17 10:01 Last Admin: 01/16/17 12:26 Dose: 110 mls/hr Megestrol Acetate (Megace) 400 mg PO DAILY [facility] Last Admin: 01/16/17 09:18 Dose: 400 mg Ondansetron HCl (Zofran Inj) 4 mg IVP Q4H PRN PRN Reason: Nausea/Vomiting Oxycodone HCl (Oxycodone Immediate Release Tab) 30 mg PO Q4H PRN PRN Reason: Pain, severe (8-10) Results - Vital Signs Recent Vital Signs: Last Vital Signs Temp 98.6 F 01/16/17 16:00 Pulse 89 01/16/17 16:00 Resp 21 01/16/17 16:00 BP 142/95 H 01/16/17 16:00 Pulse Ox 96 01/16/17 16:00 - Labs Result Diagrams: 01/16/17 07:28 01/16/17 07:28 Labs: Laboratory Results - last 24 hr 01/15/17 01/15/17 01/16/17 12:15 12:15 07:28 WBC RBC Hgb Hct MCV MCH MCHC RDW Plt Count MPV Gran % Lymph % (Auto) Dunn % (Auto) Eos % (Auto) Baso % (Auto) Gran # Lymph # Dunn # Eos # Baso # Sodium Potassium Chloride Carbon Dioxide Anion Gap BUN Creatinine Est GFR ( Amer) Est GFR (Non-Af Amer) Random Glucose Calcium Iron 28 L TIBC 151 L % Saturation 18 L Ferritin 747.0 Total Bilirubin AST ALT Alkaline Phosphatase Total Protein Albumin Globulin Albumin/Globulin Ratio Prostate Specific Ag 25-OH Vitamin D Total Folate > 20.0 Blood Type A POSITIVE Antibody Screen Negative Crossmatch See Detail BBK History Checked Patient has bt 01/16/17 01/16/17 01/16/17 07:28 07:28 07:28 WBC 8.8 D RBC 2.76 L Hgb 8.1 L Hct 25.4 L MCV 92.0 MCH 29.3 MCHC 31.9 RDW 16.4 H Plt Count 160 MPV 9.4 Gran % 76.4 H Lymph % (Auto) 9.6 L Dunn % (Auto) 13.2 H Eos % (Auto) 0.6 L Baso % (Auto) 0.2 Gran # 6.75 H Lymph # 0.9 L Dunn # 1.2 H Eos # 0.1 Baso # 0.02 Sodium Potassium Chloride Carbon Dioxide Anion Gap BUN Creatinine Est GFR ( Amer) Est GFR (Non-Af Amer) Random Glucose Calcium Iron TIBC % Saturation Ferritin Total Bilirubin AST ALT Alkaline Phosphatase Total Protein Albumin Globulin Albumin/Globulin Ratio Prostate Specific Ag 0.238 25-OH Vitamin D Total 16.2 L Folate Blood Type Antibody Screen Crossmatch BBK History Checked 01/16/17 07:28 WBC RBC Hgb Hct MCV MCH MCHC RDW Plt Count MPV Gran % Lymph % (Auto) Dunn % (Auto) Eos % (Auto) Baso % (Auto) Gran # Lymph # Dunn # Eos # Baso # Sodium 138 Potassium 5.0 Chloride 106 Carbon Dioxide 20 L Anion Gap 17 BUN 35 H Creatinine 3.8 H Est GFR ( Amer) 20 Est GFR (Non-Af Amer) 16 Random Glucose 93 Calcium 8.5 Iron TIBC % Saturation Ferritin Total Bilirubin 0.5 AST 38 ALT 32 Alkaline Phosphatase 107 Total Protein 5.8 Albumin 2.7 L Globulin 3.1 Albumin/Globulin Ratio 0.9 L Prostate Specific Ag 25-OH Vitamin D Total Folate Blood Type Antibody Screen Crossmatch BBK History Checked Attending/Attestation - Attestation I have personally seen and examined this patient.: Yes I have fully participated in the care of the patient.: Yes I have reviewed all pertinent clinical information: Yes Notes (Text): 01/16/17 16:49 IMPRESSION: METASTASIC LUNG CANCER INFILTRATING THE RIGHT BRACHIAL PLEXUS/ VERTEBRAL BODIES CAUSING RIGHT ARM WEAKNESS/PARASTHESIAS. PT REFUSED DECOMPRESSION SURGERY IN THE PAST. RECOMMEND: PHYSICAL AND OCCUPATIONAL THERAPY AND LYRICA 75 MG PO BID NEUROPATHIC PAIN RELIEF. JADA GROVE MD
--- NOTE | 2017-01-16 14:37 | MRI ---
PROCEDURE: MR CERVICAL SPINE WITHOUT CONTRAST HISTORY: rt arm weakness, lung ca,spine mets COMPARISON: None available. TECHNIQUE: Multiecho multiplanar sequences were performed through the cervical spine without the use of intravenous contrast. FINDINGS: Normal lordotic curvature. Craniocervical junction unremarkable. Vertebral body heights preserved. No marrow signal abnormality. Normal cervical cord. No paraspinal abnormality. C2-C3: No disc herniation, spinal canal stenosis or neural foraminal narrowing. C3-C4: No disc herniation, spinal canal stenosis or neural foraminal narrowing. C4-C5: There is severe spinal stenosis with flattening of the spinal cord. C5-C6: Fusion at C5-6 C6-C7: Moderate disc bulge C7-T1: As seen previously there is a mass in the right lung apex that invades the adjacent T1 and T2 vertebral bodies in the right-sided pedicles and lamina. Right-sided spinal erector muscles up to the C6 level. OTHER FINDINGS: None. IMPRESSION: As seen previously there is a mass in the right lung apex that invades the adjacent T1 and T2 vertebral bodies in the right-sided pedicles and lamina. Right-sided spinal erector muscles up to the C6 level. Severe spinal stenosis at C4-5
--- NOTE | 2017-01-16 14:56 | PN ---
DATE: 01/16/2017 SUBJECTIVE: The patient is seen lying in bed. He is awake, he is alert, he is comfortable. He complains of pain in his right shoulder and back of the neck. He denies any abdominal pain. He denies any nausea, vomiting, diarrhea. PHYSICAL EXAMINATION: GENERAL: Middle-aged male lying in bed. VITAL SIGNS: Blood pressure 144/87, heart rate 107, respiratory rate 20, temperature 98.7. HEENT: Normocephalic, atraumatic, positive pallor. NECK: Supple, no JVD. LUNGS: Bilateral equal entry, no rales. CARDIAC: As listed, a rate and, no murmur, no rub. ABDOMEN: Obese, distended, soft, nontender, bowel sounds present. EXTREMITIES: No lower extremity edema extending taken output 46 80/14 50. LABORATORY DATA: WBC 8.8, hemoglobin 8.1, hematocrit 25, platelets 160 and MCV 92, polys, 76% lymphs, 9.6% sodium 138, potassium 5.0, chloride 1062, CO2 of 20, BUN 35, creatinine 3.8, glucose 93, calcium 8.5, iron saturation 18-28, ferritin 747, prealbumin 2.7, corrected calcium is 9.4. Urine sodium 59, urine creatinine 28. Urine culture, protein S S sensitive new line. CURRENT MEDICATIONS: Azactam 1 g q. 12, Dilaudid, DuoNeb, Duragesic, heparin, Megace, guaifenesin, Tylenol, Zofran. ASSESSMENT: 1. Acute kidney injury, worsening renal function, 78 and in the setting of Proteus UTI, hematuria, bladder toxic chemotherapy. 2. Severe anemia secondary to hematuria. 3. Metastatic stage IV lung cancer with bone mets. 4. Hypoalbuminemia. 5. Metabolic acidosis. PLAN: 1. Discontinuation of IV fluids, the patient has received over 5 liters of fluid. 2. Check bladder scan. 3. IV Venofer. 4. Aranesp. 5. Monitor urine output closely. 6. Monitor daily labs. 7. Antibiotics for UTI as per ID recommendations. Brenda Meléndez MD [facility] # [id number]
--- NOTE | 2017-01-16 15:58 | CP.PCM.PN ---
Subjective - Date & Time of Evaluation Date of Evaluation: 01/16/17 Time of Evaluation: 11:10 - Subjective Subjective: Comfortable, not in distress, afebrile, no SOB at rest, no cough. Objective - Vital Signs/Intake and Output Vital Signs (last 24 hours): Temp Pulse Resp BP Pulse Ox 98.5 F 87 18 165/77 H 96 01/15/17 16:00 01/15/17 16:00 01/15/17 16:00 01/15/17 16:00 01/15/17 16:00 Intake and Output: 01/16/17 01/16/17 06:59 18:59 Intake Total 2940 Output Total 1050 Balance 1890 - Medications Medications: Current Medications Acetaminophen (Tylenol 325mg Tab) 650 mg PO Q4H PRN PRN Reason: Fever >100.5 F Albuterol/Ipratropium (Duoneb 3 Mg/0.5 Mg (3 Ml) Ud) 3 ml IH [id number] [facility] Last Admin: 01/16/17 08:13 Dose: 3 ml Fentanyl (Duragesic) 1 patch TD Q72H [facility] Last Admin: 01/14/17 21:48 Dose: 1 patch Fentanyl (Duragesic) 1 patch TD Q72H [facility] Last Admin: 01/14/17 21:53 Dose: 1 patch Guaifenesin/Codeine Phosphate (Robitussin W/Codeine) 5 ml PO Q4H PRN PRN Reason: Cough and congestion Heparin Sodium (Porcine) (Heparin) 5,000 units SC Q12 [facility] PRN Reason: Protocol Last Admin: 01/15/17 21:23 Dose: 5,000 units Hydromorphone HCl (Dilaudid) 1 mg IVP Q4H PRN PRN Reason: Pain, moderate (4-7) Last Admin: 01/16/17 05:58 Dose: 1 mg Aztreonam (Azactam 1 Gm) 100 mls @ 100 mls/hr IVPB Q12 [facility] PRN Reason: Protocol Stop: 01/22/17 10:01 Last Admin: 01/15/17 21:23 Dose: 100 mls/hr Dextrose/Sodium Chloride (Dextrose 5%/0.9% Ns 1000 Ml) 1,000 mls @ 75 mls/hr IV .[id number] [facility] Last Admin: 01/15/17 20:17 Dose: 75 mls/hr Megestrol Acetate (Megace) 400 mg PO DAILY [facility] Last Admin: 01/15/17 16:12 Dose: 400 mg Ondansetron HCl (Zofran Inj) 4 mg IVP Q4H PRN PRN Reason: Nausea/Vomiting - Labs Labs: 01/16/17 07:28 01/16/17 07:28 PT 12.2 Seconds (9.9-11.8) H 01/14/17 16:03 INR 1.13 (0.93-1.08) H 01/14/17 16:03 APTT 39.2 Seconds (23.7-30.8) H 01/14/17 16:03 - Constitutional Appears: Non-toxic, No Acute Distress - Head Exam Head Exam: NORMAL INSPECTION - ENT Exam ENT Exam: Mucous Membranes Moist - Neck Exam Neck Exam: absent: Lymphadenopathy, Meningismus - Respiratory Exam Respiratory Exam: Decreased Breath Sounds - Cardiovascular Exam Cardiovascular Exam: +S1, +S2 - GI/Abdominal Exam GI & Abdominal Exam: Soft. absent: Tenderness Assessment and Plan - Assessment and Plan (Free Text) Plan: Assessment Hematuria and urinary frequency, probably UTI with Proteus lung infiltrates on CT chest R/O pneumonia Right lung mass, which is poorly-differentiated non-small cell lung cancer on pathology S/P biopsy 10/16/2016 on radiotherapy and chemotherapy COPD Plan continue Azactam day 2 - will check PCT to see if the patient does have pneumonia (patient does not have significant cough currently, afebrile, WBC count has normalized, i.e. we can monitor the patient clinically); blood cx are negativeand will follow up identification and sensitivities of the gram negative bacilli in the urine; follow up blood cx and PSA levels will monitor clinically suggest Urology evaluation
[2017-01-16] MEDS: oxyCODONE 30 mg Immediate Release Tab PO PRN (20:11)
[2017-01-16] MEDS: MethylPREDNISolone 40 mg Vial IVP SCH (21:42)
[2017-01-16] MEDS ORDERED: Vancomycin 1gm in NS 250ml 1 GM/250 ML BAG IVPB STA (22:59)
[2017-01-17] MEDS: oxyCODONE 30 mg Immediate Release Tab PO PRN ×4 (00:28→22:24)
[2017-01-17] MEDS: Albuterol-Ipratrop 3 mg / 0.5 (3 ml) UD IH SCH ×4 (01:28→19:28)
[2017-01-17] MEDS: HYDROmorphone 1 mg/ml ISec IVP PRN ×2 (02:21→07:41)
[2017-01-17] MEDS: guaiFENesin-Codeine 100-10mg/5ml Syrup (5 ml) UD PO SCH ×4 (05:59→22:25)
--- NOTE | 2017-01-17 06:07 | CP.PCM.PN ---
Subjective - Date & Time of Evaluation Date of Evaluation: 01/17/17 Time of Evaluation: 06:06 - Subjective Subjective: Patient was seen for nurse's concern that blood pressure was elevated. 177/104 He has no complaints now. Denies head ache, dizziness, nausea, heaviness in head, lightheadedness, weakness, paraesthesia. ROS:Negative except as mentioned above. Medical record was reviewed. This 56 year old male was admitted with hematuria. Has PMH of stage IV non small cell lung cancer, metastasis to thoracic spine, COPD, port placement,PCN allergy. Objective - Vital Signs/Intake and Output Vital Signs (last 24 hours): Temp Pulse Resp BP Pulse Ox 98.5 F 112 H 20 144/95 H 96 01/16/17 20:05 01/16/17 20:11 01/16/17 20:05 01/16/17 20:11 01/16/17 16:00 Intake and Output: 01/16/17 01/17/17 18:59 06:59 Intake Total 720 585 Output Total 602 750 Balance 118 -165 - Medications Medications: Current Medications Acetaminophen (Tylenol 325mg Tab) 650 mg PO Q4H PRN PRN Reason: Fever >100.5 F Albuterol/Ipratropium (Duoneb 3 Mg/0.5 Mg (3 Ml) Ud) 3 ml IH [id number] [facility] Last Admin: 01/17/17 01:28 Dose: 3 ml Benzonatate (Tessalon Perles) 100 mg PO TID [facility] Fentanyl (Duragesic) 1 patch TD Q72H [facility] Last Admin: 01/14/17 21:48 Dose: 1 patch Fentanyl (Duragesic) 1 patch TD Q72H [facility] Last Admin: 01/14/17 21:53 Dose: 1 patch Guaifenesin/Codeine Phosphate (Robitussin W/Codeine) 5 ml PO Q6H [facility] Last Admin: 01/16/17 22:23 Dose: 5 ml Heparin Sodium (Porcine) (Heparin) 5,000 units SC Q12 [facility] PRN Reason: Protocol Last Admin: 01/16/17 21:43 Dose: 5,000 units Hydromorphone HCl (Dilaudid) 1 mg IVP Q4H PRN PRN Reason: Pain, moderate (4-7) Last Admin: 08/18/17 02:21 Dose: 1 mg Aztreonam (Azactam 1 Gm) 100 mls @ 100 mls/hr IVPB Q12 [facility] PRN Reason: Protocol Stop: 01/22/17 10:01 Last Admin: 01/16/17 21:42 Dose: 100 mls/hr Dextrose/Sodium Chloride (Dextrose 5%/0.9% Ns 1000 Ml) 1,000 mls @ 75 mls/hr IV [id number] [facility] Last Admin: 01/16/17 09:32 Dose: 75 mls/hr Iron Sucrose 200 mg/ Sodium (Chloride) 110 mls @ 110 mls/hr IVPB DAILY [facility] Stop: 01/21/17 10:01 Last Admin: 01/16/17 12:26 Dose: 110 mls/hr Megestrol Acetate (Megace) 400 mg PO DAILY [facility] Last Admin: 01/16/17 09:18 Dose: 400 mg Methylprednisolone (Solu-Medrol) 40 mg IVP Q12 [facility] Last Admin: 01/16/17 21:42 Dose: 40 mg Metoprolol Tartrate (Lopressor) 25 mg PO BID [facility] Ondansetron HCl (Zofran Inj) 4 mg IVP Q4H PRN PRN Reason: Nausea/Vomiting Oxycodone HCl (Oxycodone Immediate Release Tab) 30 mg PO Q4H PRN PRN Reason: Pain, severe (8-10) Last Admin: 01/17/17 05:41 Dose: 30 mg Pregabalin (Lyrica) 25 mg PO BID [facility] - Labs Labs: 01/16/17 07:28 01/16/17 07:28 PT 12.2 Seconds (9.9-11.8) H 01/14/17 16:03 INR 1.13 (0.93-1.08) H 01/14/17 16:03 APTT 39.2 Seconds (23.7-30.8) H 01/14/17 16:03 Assessment and Plan - Assessment and Plan (Free Text) Assessment: Elevated blood pressure reading. COPD. Hematuria. Breast cancer. Mets to thoracic spine. Plan: Metoprolol 25 mg PO stat. Continue present management.
[2017-01-17 06:50] LABS: ADD MANUAL DIFF? NO
[2017-01-17 06:53] LABS: BASO # 0.01 K/mm3 (0.0-2.0); BASO % 0.1 % (0.0-3.0); GRAN # 14.52 (1.4-6.5); GRAN % 94.7 % (50.0-68.0); HEMATOCRIT 28.1 % (42.0-52.0); LYMPH # 0.4 (1.2-3.4); LYMPH % 2.4 % (22.0-35.0); MEAN CELL VOLUME 91.8 fl (80.0-105.0); MEAN CORPUSCULAR HEMOGLOBIN 29.4 pg (25.0-35.0); MEAN PLATELET VOLUME 9.9 fl (7.0-11.0); MONO # 0.4 (0.1-0.6); MONO % 2.8 % (1.0-6.0); PLATELET COUNT 141 10^3/uL (120.0-450.0); RED CELL DISTRIBUTION WIDTH 16.8 % (11.5-14.5); WHITE BLOOD COUNT 15.3 10^3/ul (4.5-11.0)
[2017-01-17 07:04] LABS: ALB/GLOB RATIO 0.9 (1.1-1.8); BILIRUBIN,TOTAL 0.3 mg/dL (0.2-1.3); CALCIUM 8.2 mg/dL (8.4-10.5); MAGNESIUM 1.8 mg/dL (1.7-2.2); TOTAL PROTEIN 6.5 g/dL (5.8-8.3)
--- NOTE | 2017-01-17 07:10 | CON ---
CARDIOLOGY CONSULTATION DATE: 01/16/2017 REASON FOR CONSULTATION: Chest pain, lung CA, recently diagnosed with acute kidney injury and hematuria. BRIEF CLINICAL HISTORY: A 56-year-old male with a history of lung cancer diagnosed in 09/2016, had received radiation and currently receiving chemotherapy and now getting blood transfusion. The patient denies any chest pain or dyspnea on exertion or palpitation. The patient states that after the first blood transfusion last , he feel chest pain right-sided where the tumor is and also feel tenderness there. PAST MEDICAL HISTORY: Significant for lung CA diagnosed in 09/2016, status post 10 sessions of radiation status post chemo and 3 sessions of chemo. Now, he is getting blood transfusion. PAST SURGICAL HISTORY: Nothing significant. 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 Denies any history of alcohol abuse. No history of substance abuse. FAMILY HISTORY: Sister with uterine cancer. ALLERGIES: PENICILLIN. CURRENT MEDICATIONS: The patient is at home taking calcium, lidocaine, fentanyl patch, oxycodone, Megace, gabapentin and Lasix. REVIEW OF SYSTEMS: As per HPI. PHYSICAL EXAMINATION: As follows; VITAL SIGNS: Temperature afebrile, heart rate 111 and blood pressure 142/91. HEENT: PERRLA. Extraocular muscles intact. NECK: Supple. No carotid bruit or thyromegaly. CHEST: Clear to auscultation. HEART: S1 and S2, regular. ABDOMEN: Soft. EXTREMITIES: Clubbing and cyanosis negative. LABORATORY DATA: EKG not available in the chart, not done on this admission. Blood workup as follows: WBC 8.8, hemoglobin 8. , hematocrit 25.4 and platelet count 160. Chemistries showed sodium 130, potassium 5, chloride 106, carbon dioxide 20, anion gap of 17, BUN of 35 and creatinine 3.8. IMPRESSION: Acute kidney injury, hematuria, lung cancer, right-sided chest pain most likely secondary to tumor invasion, anemia, protein-calorie malnutrition, albumin 2.7 is moderate which is not present on admission, high blood pressure, tachycardia with multifactorial. RECOMMENDATIONS: We start low dose beta-paty. We will get echo to assess LV function, not done in the last 6 months. Lipid profile, TSH, and hemoglobin A1c. We will follow with you. Thank you Dr. Leary providing the opportunity in taking care of Marc Tate. Elisabet Felton MD
[2017-01-17 07:11] LABS: POTASSIUM 5.6 mmol/L (3.6-5.0)
--- NOTE | 2017-01-17 07:14 | CON ---
DATE: 01/16/2017 PULMONARY CONSULTATION REFERRING PHYSICIAN: Dr. Holland. REASON FOR CONSULTATION: Metastatic lung cancer, COPD, cough and shortness of breath. HISTORY OF PRESENT ILLNESS: This is a 56-year-old gentleman with known history of metastatic lung cancer to the spine, been on radiation and chemotherapy. He is involving thoracic spine T1-T3. At present, he has hematuria as an outpatient, brought into the hospital, has a cough and shortness of breath. No hemoptysis. No hematemesis. No leg pain. No leg swelling. PAST MEDICAL HISTORY: Chronic obstructive lung disease and stage IV non-small cell lung cancer involving the bone. FAMILY HISTORY: Positive for uterine cancer and lymphoma. SOCIAL HISTORY: Heavy smoker. ALLERGIES: PENICILLIN. MEDICATIONS: He is on Azactam 1 g IV q. 12 hours, IV fluid D5 normal saline 75 mL/hour, Dilaudid 1 mg q. 4 hours p.r.n., DuoNeb q. 6 hours, Duragesic patch q. 72 hours, heparin 5000 units subcu q. 12 hours, iron IV, metoprolol tartrate 25 mg twice a day, Megace 400 mg daily, oxycodone immediate release 30 mg q. 4 hours p.r.n., Robitussin with Codeine 5 mL q. 6 hours, Tylenol p.r.n., and Zofran p.r.n. REVIEW OF SYSTEMS: No headache, no rhinitis. Has shoulder pain, right upper extremity weakness, cough and shortness of breath. Denying any abdominal pain. No nausea. No vomiting. No leg pain or leg swelling. PHYSICAL EXAMINATION: GENERAL: Lying in bed, in mild distress secondary to cough and shortness of breath. VITAL SIGNS: Temperature is 98, heart rate is 110, respiratory rate is 20, blood pressure 144/95, pulse ox is 96% on room air. HEENT: Small oral cavity. NECK: Supple. No JVD. LUNGS: Prolonged expiratory phase with some wheezing. HEART: S1 and S2. ABDOMEN: Soft, nontender, no organomegaly. EXTREMITIES: No edema. NEUROLOGIC: Awake, alert. Follows simple commands. LABORATORY DATA: Shows hemoglobin 8.1, hematocrit 25.4, WBC 8.8, platelet count is 160. INR 1.13. Sodium 138, potassium 5.0, chloride 106, bicarbonate is 20, BUN 35, creatinine 3.8, glucose 93, calcium 8.5, AST 38, ALT 32, alkaline phosphatase is 107, albumin is 2.7. PSA is 0.2. Vitamin D 16.2. Folate level is more than 20. MICROBIOLOGY: Urine culture has Proteus mirabilis. Blood culture, there is no growth. CAT scan of the chest done today shows right apical neoplasm associated with pleural thickening and multiple vertebral cysts. Also posterior right rib is involved. There is also left hilar involved. Small right pleural effusion, bilateral lower lobe compressive atelectasis, multifocal infiltrate in the left upper lobe and superior segment of the left lower lobe. IMPRESSION AND PLAN: Urinary tract infection, pneumonia, unresectable lung cancer, chronic obstructive pulmonary disease. Agree with the present management. We will suggest continue antibiotics, adding Solu-Medrol, inhaled bronchodilators, gastric prophylaxis, pain management. Spoke to family at the bedside. All the questions answered. Thank you, and we will follow with you. Elisabet Pelaez MD
[2017-01-17] MEDS ORDERED: Sod Polystyrene Sulf 15 gm/60 ml Oral Susp PO ONE (07:27)
[2017-01-17] MEDS: Megestrol Acetate 40 mg/ml Cup PO SCH (09:28)
[2017-01-17] MEDS: MethylPREDNISolone 40 mg Vial IVP SCH ×2 (09:29→22:24)
[2017-01-17] MEDS: Aztreonam 1 Gm in NS 100mL 100 ML IVPB SCH ×2 (09:30→22:22)
[2017-01-17] MEDS ORDERED: Albuterol-Ipratrop 3 mg / 0.5 (3 ml) UD IH PRN (09:58)
[2017-01-17] MEDS ORDERED: Midazolam 2 MG/2 ML VIAL ONE (10:49)
[2017-01-17] MEDS ORDERED: Oxycodone/Acetaminophen 5/325 mg Tab PO PRN (11:17)
[2017-01-17] MEDS ORDERED: Sodium Chloride 0.45% 1,000 ML IV SCH ×2 (11:30→13:03)
[2017-01-17] MEDS ORDERED: HYDROmorphone 1 mg/ml PCA IV PRN (13:03)
--- NOTE | 2017-01-17 13:13 | CT ---
PROCEDURE: CT guided left renal cortex biopsy. HISTORY: Metastatic lung CA. Acute renal failure. Needs biopsy PHYSICIAN(S): Matthew Booth MD. TECHNIQUE: The relative risks and indications of the procedure were explained to the patient and his family and consent obtained. The patient was placed prone on the CT scanner and preliminary images through the kidneys obtained. Conscious sedation and monitoring were provided throughout the procedure by a nurse. The limited noncontrast images of the kidneys are unremarkable.. A posterior approach was selected and the area prepped and draped in the usual sterile fashion. 1% Xylocaine was used to anesthetize the skin and soft tissues. A 17-gauge guiding needle was advanced into the left lateral renal cortex inferiorly.. Its position was confirmed with CT. Using coaxial technique, multiple core biopsies were obtained. The postprocedure images show no evidence of significant hemorrhage. IMPRESSION: 1. CT-guided left renal cortex biopsy as described above.
[2017-01-17] MEDS ORDERED: POLYETHYLENE GLYCOL 3350 17 GM/Dose PACKET PO PRN (13:59)
[2017-01-17] MEDS ORDERED: HYDROmorphone 1 mg/ml PCA 25 ML IV SCH (14:00)
[2017-01-17] MEDS ORDERED: Insulin Regular 1 UNITS/0.01 ML ML IV STA (14:34)
[2017-01-17] MEDS ORDERED: Dextrose 50% SYRINGE Inj (50 ml) IVP ONE (14:34)
[2017-01-17 16:18] LABS: MEAN CELL VOLUME 91.5 fl (80.0-105.0); MEAN CORPUSCULAR HEMOGLOBIN 29.1 pg (25.0-35.0); MEAN CORPUSCULAR HGB CONC 31.8 g/dl (31.0-37.0); MEAN PLATELET VOLUME 9.6 fl (7.0-11.0); RED CELL DISTRIBUTION WIDTH 16.9 % (11.5-14.5); WHITE BLOOD COUNT 12.8 10^3/ul (4.5-11.0)
[2017-01-17 16:21] LABS: HEMATOCRIT 23.6 % (42.0-52.0)
--- NOTE | 2017-01-17 16:55 | CP.PCM.PN ---
<Justice Nelson - Last Filed: 01/17/17 16:47> Subjective - Date & Time of Evaluation Date of Evaluation: 01/17/17 Time of Evaluation: 08:00 - Subjective Subjective: Heme/onc note for Dr Leary: Pt seen and examined at bedside. No acute events overnight. No hematuria. He states that his sob and cough is better. He c/o RUE pain and weakness. Denies any f/c, n/v, cp, abd pain, bm changes. Objective - Vital Signs/Intake and Output Vital Signs (last 24 hours): Temp Pulse Resp BP Pulse Ox 98.6 F 110 H 20 146/96 H 97 01/17/17 16:00 01/17/17 16:00 01/17/17 16:00 01/17/17 16:00 01/17/17 16:00 - Medications Medications: Current Medications Acetaminophen (Tylenol 325mg Tab) 650 mg PO Q4H PRN PRN Reason: Fever >100.5 F Albuterol/Ipratropium (Duoneb 3 Mg/0.5 Mg (3 Ml) Ud) 3 ml IH [id number] [facility] Last Admin: 01/17/17 13:24 Dose: 3 ml Albuterol/Ipratropium (Duoneb 3 Mg/0.5 Mg (3 Ml) Ud) 3 ml IH Q2H PRN PRN Reason: Shortness of Breath Amlodipine Besylate (Norvasc) 5 mg PO DAILY [facility] Last Admin: 01/17/17 09:28 Dose: 5 mg Benzonatate (Tessalon Perles) 100 mg PO TID [facility] Last Admin: 01/17/17 16:26 Dose: Not Given Docusate Sodium (Colace) 100 mg PO TID [facility] Last Admin: 01/17/17 16:25 Dose: Not Given Fentanyl (Duragesic) 1 patch TD Q72H [facility] Last Admin: 01/14/17 21:48 Dose: 1 patch Fentanyl (Duragesic) 1 patch TD Q72H [facility] Last Admin: 01/14/17 21:53 Dose: 1 patch Guaifenesin/Codeine Phosphate (Robitussin W/Codeine) 5 ml PO Q6H [facility] Last Admin: 01/17/17 11:49 Dose: Not Given Heparin Sodium (Porcine) (Heparin) 5,000 units SC Q12 [facility] PRN Reason: Protocol Last Admin: 01/17/17 09:29 Dose: 5,000 units Aztreonam (Azactam 1 Gm) 100 mls @ 100 mls/hr IVPB Q12 [facility] PRN Reason: Protocol Stop: 01/22/17 10:01 Last Admin: 01/17/17 09:30 Dose: 100 mls/hr Iron Sucrose 200 mg/ Sodium (Chloride) 110 mls @ 110 mls/hr IVPB DAILY [facility] Stop: 01/21/17 10:01 Last Admin: 01/17/17 13:47 Dose: 110 mls/hr Sodium Chloride (Sodium Chloride 0.45%) 1,000 mls @ 125 mls/hr IV .Q8H [facility] Stop: 01/18/17 08:00 Doxycycline Hyclate 100 mg/ (Sodium Chloride) 100 mls @ 100 mls/hr IVPB Q12 [facility] PRN Reason: Protocol Hydromorphone HCl (Dilaudid-Hp 1 Mg/Ml Beauty Culture Teacher) 25 mls @ 0.25 mls/hr IV .Q24H [facility] PRN Reason: 0.25 MG/HR Last Admin: 01/17/17 14:36 Dose: 0.25 mls/hr Megestrol Acetate (Megace) 400 mg PO DAILY [facility] Last Admin: 01/17/17 09:28 Dose: 400 mg Methylprednisolone (Solu-Medrol) 40 mg IVP Q12 [facility] Last Admin: 01/17/17 09:29 Dose: 40 mg Metoprolol Tartrate (Lopressor) 25 mg PO BID [facility] Last Admin: 01/17/17 09:28 Dose: 25 mg Ondansetron HCl (Zofran Inj) 4 mg IVP Q4H PRN PRN Reason: Nausea/Vomiting Last Admin: 01/17/17 10:07 Dose: 4 mg Oxycodone HCl (Oxycodone Immediate Release Tab) 30 mg PO Q4H PRN PRN Reason: Pain, severe (8-10) Last Admin: 01/17/17 13:21 Dose: 30 mg Oxycodone/Acetaminophen (Percocet 5/325 Mg Tab) 1 tab PO Q4H PRN PRN Reason: Pain, moderate (4-7) Stop: 01/20/17 11:18 Polyethylene Glycol (Miralax) 17 gm PO DAILY PRN PRN Reason: Constipation Pregabalin (Lyrica) 25 mg PO BID [facility] Last Admin: 01/17/17 09:29 Dose: 25 mg - Labs Labs: 01/17/17 16:05 PT 12.2 Seconds (9.9-11.8) H 01/14/17 16:03 INR 1.13 (0.93-1.08) H 01/14/17 16:03 APTT 39.2 Seconds (23.7-30.8) H 01/14/17 16:03 - Constitutional Appears: No Acute Distress - Head Exam Head Exam: ATRAUMATIC, NORMAL INSPECTION, NORMOCEPHALIC - Eye Exam Eye Exam: EOMI, Normal appearance, PERRL Pupil Exam: NORMAL ACCOMODATION, PERRL - ENT Exam ENT Exam: Mucous Membranes Moist, Normal Exam - Neck Exam Neck Exam: Tenderness - Respiratory Exam Respiratory Exam: Clear to Ausculation Bilateral, NORMAL BREATHING PATTERN. absent: Wheezes - Cardiovascular Exam Cardiovascular Exam: RRR, +S1, +S2 - GI/Abdominal Exam GI & Abdominal Exam: Soft. absent: Distended, Tenderness - Extremities Exam Extremities Exam: absent: Calf Tenderness, Pedal Edema - Neurological Exam Neurological Exam: Alert, Awake, Oriented x3 - Psychiatric Exam Psychiatric exam: Normal Affect, Normal Mood - Skin Skin Exam: Dry, Intact, Normal Color, Warm Assessment and Plan - Assessment and Plan (Free Text) Assessment: 56 M with pmh of past heavy smoking, is currently on chemo (carboplatin and pemetrexed) for stage 4 non-small cell lung carcinoma mets to thoracic spine T1- T3 presents with AC and UTI with hematuria now resolved. s/p kiney biopsy. Complicated by pneumonia on IV doxy. 1. AC with Hematuria and uti - Cr 3--> 3.8--> 4.0 today - Kidney biopsy done today - ATN from chemo - Possible but unlikely - Bladder & renal US was mainly unremarkable - Nephrology consulted for recs - started Aranesp - kidney biopsy today - ID consulted -cont Aztreonam 2. Sob - possible pneumonia - CT chest shows some L sided multifocal infiltrate and possible pneumonia - Cough attributes to severe chest pain - Pulm consulted for recs - started doxy today - Robitussin with codeine prn changed to scheduled - ID consulted regarding possible pneumonia - procal elevated, vanc x 1, cont aztreonam 3. RUE pain - Started dilaudid PMO ANALYST today - Neuro consulted for recs- pt refused decompressive sx in the past - rec Lyrica 75m BID for neuropathic pain - Pt refused MRI of cervical and thoracic spine to check for progression of dx - Pain management as outpatient 4. Hx of stage 4 non-small cell lung ca mets to thoracic spine - On chemo - carboplatin and pemetrexed - Pain control Case and plan was reviewed and discussed with Dr Leary <Lizzie Leary P - Last Filed: 01/25/17 18:43> Objective - Vital Signs/Intake and Output Vital Signs (last 24 hours): Temp Pulse Resp BP Pulse Ox 98.6 F 80 20 144/94 H 95 01/21/17 16:00 01/21/17 17:24 01/21/17 16:00 01/21/17 18:58 01/21/17 16:00 - Labs Labs: 01/21/17 11:05 01/21/17 11:05 PT 12.2 Seconds (9.9-11.8) H 01/14/17 16:03 INR 1.13 (0.93-1.08) H 01/14/17 16:03 APTT 39.2 Seconds (23.7-30.8) H 01/14/17 16:03 Attending/Attestation - Attestation I have personally seen and examined this patient.: Yes I have fully participated in the care of the patient.: Yes I have reviewed all pertinent clinical information, including history, physical exam and plan: Yes
--- NOTE | 2017-01-17 18:19 | CP.PCM.PN ---
Subjective - Date & Time of Evaluation Date of Evaluation: 01/17/17 Time of Evaluation: 11:10 - Subjective Subjective: For CT-guided biopsy of kidney today. No fevers overnight, comfortable, no SOB at rest. Objective - Vital Signs/Intake and Output Vital Signs (last 24 hours): Temp Pulse Resp BP Pulse Ox 98.5 F 104 H 20 171/104 H 96 01/16/17 20:05 01/17/17 06:15 01/16/17 20:05 01/17/17 06:15 01/16/17 16:00 Intake and Output: 01/16/17 01/17/17 18:59 06:59 Intake Total 720 585 Output Total 602 750 Balance 118 -165 - Medications Medications: Current Medications Acetaminophen (Tylenol 325mg Tab) 650 mg PO Q4H PRN PRN Reason: Fever >100.5 F Albuterol/Ipratropium (Duoneb 3 Mg/0.5 Mg (3 Ml) Ud) 3 ml IH [id number] [facility] Last Admin: 01/17/17 01:28 Dose: 3 ml Benzonatate (Tessalon Perles) 100 mg PO TID [facility] Fentanyl (Duragesic) 1 patch TD Q72H [facility] Last Admin: 01/14/17 21:48 Dose: 1 patch Fentanyl (Duragesic) 1 patch TD Q72H [facility] Last Admin: 01/14/17 21:53 Dose: 1 patch Guaifenesin/Codeine Phosphate (Robitussin W/Codeine) 5 ml PO Q6H [facility] Last Admin: 01/17/17 05:59 Dose: 5 ml Heparin Sodium (Porcine) (Heparin) 5,000 units SC Q12 [facility] PRN Reason: Protocol Last Admin: 01/16/17 21:43 Dose: 5,000 units Hydromorphone HCl (Dilaudid) 1 mg IVP Q4H PRN PRN Reason: Pain, moderate (4-7) Last Admin: 01/17/17 02:21 Dose: 1 mg Aztreonam (Azactam 1 Gm) 100 mls @ 100 mls/hr IVPB Q12 [facility] PRN Reason: Protocol Stop: 01/22/17 10:01 Last Admin: 01/16/17 21:42 Dose: 100 mls/hr Dextrose/Sodium Chloride (Dextrose 5%/0.9% Ns 1000 Ml) 1,000 mls @ 75 mls/hr IV .[id number] [facility] Last Admin: 01/16/17 09:32 Dose: 75 mls/hr Iron Sucrose 200 mg/ Sodium (Chloride) 110 mls @ 110 mls/hr IVPB DAILY [facility] Stop: 01/21/17 10:01 Last Admin: 01/16/17 12:26 Dose: 110 mls/hr Megestrol Acetate (Megace) 400 mg PO DAILY [facility] Last Admin: 01/16/17 09:18 Dose: 400 mg Methylprednisolone (Solu-Medrol) 40 mg IVP Q12 [facility] Last Admin: 01/16/17 21:42 Dose: 40 mg Metoprolol Tartrate (Lopressor) 25 mg PO BID [facility] Ondansetron HCl (Zofran Inj) 4 mg IVP Q4H PRN PRN Reason: Nausea/Vomiting Oxycodone HCl (Oxycodone Immediate Release Tab) 30 mg PO Q4H PRN PRN Reason: Pain, severe (8-10) Last Admin: 01/17/17 05:41 Dose: 30 mg Pregabalin (Lyrica) 25 mg PO BID [facility] - Labs Labs: 01/16/17 07:28 01/16/17 07:28 PT 12.2 Seconds (9.9-11.8) H 01/14/17 16:03 INR 1.13 (0.93-1.08) H 01/14/17 16:03 APTT 39.2 Seconds (23.7-30.8) H 01/14/17 16:03 - Constitutional Appears: Non-toxic, No Acute Distress - Head Exam Head Exam: NORMAL INSPECTION - Neck Exam Neck Exam: absent: Meningismus - Respiratory Exam Respiratory Exam: Decreased Breath Sounds - Cardiovascular Exam Cardiovascular Exam: +S1, +S2 - GI/Abdominal Exam GI & Abdominal Exam: Soft. absent: Tenderness Assessment and Plan - Assessment and Plan (Free Text) Plan: Assessment Hematuria and urinary frequency, probably UTI with Proteus lung infiltrates on CT chest R/O pneumonia Right lung mass, which is poorly-differentiated non-small cell lung cancer on pathology S/P biopsy 10/16/2016 on radiotherapy and chemotherapy COPD Plan continue Azactam day 3 - PCT is elevated but patient has renal failure - will also give intermittent Vanco IV since we cannot rule out pneumonia - will get Vanco random level today and dose Vanco IV as necessary (target level between 15 -20); blood cx are negative and will follow up identification and sensitivities of the gram negative bacilli in the urine; PSA is normal will monitor clinically follow up biopsy results of the kidney suggest Urology evaluation
[2017-01-17 18:38] LABS: HEMATOCRIT 26.8 % (42.0-52.0); MEAN CELL VOLUME 90.8 fl (80.0-105.0); MEAN CORPUSCULAR HEMOGLOBIN 29.5 pg (25.0-35.0); MEAN CORPUSCULAR HGB CONC 32.5 g/dl (31.0-37.0); MEAN PLATELET VOLUME 9.7 fl (7.0-11.0); RED CELL DISTRIBUTION WIDTH 16.8 % (11.5-14.5); WHITE BLOOD COUNT 16.9 10^3/ul (4.5-11.0)
--- NOTE | 2017-01-17 19:01 | CP.PCM.PN ---
Subjective - Date & Time of Evaluation Date of Evaluation: 01/17/17 Time of Evaluation: 18:58 - Subjective Subjective: Pt has a portacath,needs an additional line.He has very poor veins. Objective - Vital Signs/Intake and Output Vital Signs (last 24 hours): Temp Pulse Resp BP Pulse Ox 98.6 F 110 H 20 146/96 H 97 01/17/17 16:00 01/17/17 16:00 01/17/17 16:00 01/17/17 16:00 01/17/17 16:00 - Medications Medications: Current Medications Acetaminophen (Tylenol 325mg Tab) 650 mg PO Q4H PRN PRN Reason: Fever >100.5 F Albuterol/Ipratropium (Duoneb 3 Mg/0.5 Mg (3 Ml) Ud) 3 ml IH [id number] [facility] Last Admin: 01/17/17 13:24 Dose: 3 ml Albuterol/Ipratropium (Duoneb 3 Mg/0.5 Mg (3 Ml) Ud) 3 ml IH Q2H PRN PRN Reason: Shortness of Breath Amlodipine Besylate (Norvasc) 5 mg PO DAILY [facility] Last Admin: 01/17/17 09:28 Dose: 5 mg Benzonatate (Tessalon Perles) 100 mg PO TID [facility] Last Admin: 01/17/17 18:00 Dose: 100 mg Docusate Sodium (Colace) 100 mg PO TID [facility] Last Admin: 01/17/17 16:25 Dose: Not Given Fentanyl (Duragesic) 1 patch TD Q72H [facility] Last Admin: 01/14/17 21:48 Dose: 1 patch Fentanyl (Duragesic) 1 patch TD Q72H [facility] Last Admin: 01/14/17 21:53 Dose: 1 patch Guaifenesin/Codeine Phosphate (Robitussin W/Codeine) 5 ml PO Q6H [facility] Last Admin: 01/17/17 16:56 Dose: 5 ml Heparin Sodium (Porcine) (Heparin) 5,000 units SC Q12 [facility] PRN Reason: Protocol Last Admin: 01/17/17 09:29 Dose: 5,000 units Aztreonam (Azactam 1 Gm) 100 mls @ 100 mls/hr IVPB Q12 [facility] PRN Reason: Protocol Stop: 01/22/17 10:01 Last Admin: 01/17/17 09:30 Dose: 100 mls/hr Iron Sucrose 200 mg/ Sodium (Chloride) 110 mls @ 110 mls/hr IVPB DAILY [facility] Stop: 01/21/17 10:01 Last Admin: 01/17/17 13:47 Dose: 110 mls/hr Sodium Chloride (Sodium Chloride 0.45%) 1,000 mls @ 125 mls/hr IV .Q8H [facility] Stop: 01/18/17 08:00 Last Admin: 01/17/17 18:09 Dose: 125 mls/hr Doxycycline Hyclate 100 mg/ (Sodium Chloride) 100 mls @ 100 mls/hr IVPB Q12 [facility] PRN Reason: Protocol Last Admin: 01/17/17 18:01 Dose: 100 mls/hr Hydromorphone HCl (Dilaudid-Hp 1 Mg/Ml Financial Secretary) 25 mls @ 0.25 mls/hr IV .Q24H [facility] PRN Reason: 0.25 MG/HR Last Admin: 01/17/17 14:36 Dose: 0.25 mls/hr Megestrol Acetate (Megace) 400 mg PO DAILY [facility] Last Admin: 01/17/17 09:28 Dose: 400 mg Methylprednisolone (Solu-Medrol) 40 mg IVP Q12 [facility] Last Admin: 01/17/17 09:29 Dose: 40 mg Metoprolol Tartrate (Lopressor) 25 mg PO BID [facility] Last Admin: 01/17/17 18:00 Dose: 25 mg Ondansetron HCl (Zofran Inj) 4 mg IVP Q4H PRN PRN Reason: Nausea/Vomiting Last Admin: 01/17/17 10:07 Dose: 4 mg Oxycodone HCl (Oxycodone Immediate Release Tab) 30 mg PO Q4H PRN PRN Reason: Pain, severe (8-10) Last Admin: 01/17/17 13:21 Dose: 30 mg Oxycodone/Acetaminophen (Percocet 5/325 Mg Tab) 1 tab PO Q4H PRN PRN Reason: Pain, moderate (4-7) Stop: 01/20/17 11:18 Polyethylene Glycol (Miralax) 17 gm PO DAILY PRN PRN Reason: Constipation Pregabalin (Lyrica) 25 mg PO BID [facility] Last Admin: 08/18/17 18:01 Dose: 25 mg - Labs Labs: 01/17/17 18:32 PT 12.2 Seconds (9.9-11.8) H 01/14/17 16:03 INR 1.13 (0.93-1.08) H 01/14/17 16:03 APTT 39.2 Seconds (23.7-30.8) H 01/14/17 16:03 - Constitutional Appears: No Acute Distress Assessment and Plan - Assessment and Plan (Free Text) Assessment: Poor venous access Plan: Hep lock inserted in the R hand. #24 angiocath used.
--- NOTE | 2017-01-17 20:54 | PN ---
DATE: 01/17/2017 SUBJECTIVE: The patient is seen lying in bed. He appears to be in mild respiratory distress. He denies any pain. He denies any chest tightness. He denies any abdominal pain. He denies any nausea, vomiting. PHYSICAL EXAMINATION: GENERAL: Middle-aged male, lying in bed, in mild respiratory distress. VITAL SIGNS: Blood pressure 143/92, heart rate 93, respiratory rate 16, temperature 98.3. HEENT: Normocephalic, atraumatic. NECK: Supple, no JVD. LUNGS: Bilateral rhonchi, basilar rales. CARDIAC: S1, S2. Regular rate and rhythm, no murmur, no rub. ABDOMEN: Obese, soft, nontender, bowel sounds present. EXTREMITIES: No lower extremity edema. INTAKE AND OUTPUT: 2505/1352. LABORATORY DATA: WBC 15, hemoglobin 9, hematocrit 28, platelets 141, eosinophils 0. Sodium 140, potassium 5.6, chloride 110, CO2 17, BUN 37, creatinine 4.0, glucose 159, A1c 6.6, calcium 8.2, phosphorus 6.0, magnesium 1.8, albumin 3.2. Urine culture, Proteus. CT chest from 12/2016, right apical neoplasm with associated pleural thickening and multiple cysts in the vertebrae, small right effusion, trace left pleural effusion, bilateral lower lobe compressive atelectasis, multifocal infiltrates in the left upper lobe. CURRENT MEDICATIONS: Colace, doxycycline, Duragesic, fentanyl, Lyrica, Megace, amlodipine, Solu-Medrol, Tylenol, Zofran. ASSESSMENT: 1. Acute kidney injury. Secondary to acute kidney injury. 2. Stage IV lung cancer with bone metastasis. 3. Left upper lobe pneumonia. 4. Proteus urinary tract infection. 5.??Vasculitis. 6. Suspect acute tubular necrosis. PLAN: 1. Followup vasculitis workup 2. Urgent kidney biopsy. 3. Discontinue IV fluids. 4. Monitor electrolytes closely. 5. Treat hyperkalemia. AIN, not likely because there is no peripheral eosinophilia. PMSFSHx all reviewed and unchanged, unless mentioned Brenda Meléndez MD MTDD
--- NOTE | 2017-01-17 23:41 | PN ---
DATE: 01/17/2017 LOCATION: The patient is room 574, bed 1. REASON FOR CONSULTATION: Chest pain, lung carcinoma, acute kidney injury, hematuria. SUBJECTIVE: The patient still has chest pain but he also has localized tenderness at the area of the pain. The patient states that he went for renal biopsy today. He is lying flat in bed without any respiratory distress or palpitation. PHYSICAL EXAMINATION VITAL SIGNS: Blood pressure 143/92, earlier was 137/86, respirations 16, pulse 93, and temperature 98.4. HEENT: Head is normocephalic. Eyes: Pupils normal. Conjunctiva slightly pale. NECK: JVP low, carotids equal. Thorax, AP diameter normal. LUNGS: No rales. CARDIOVASCULAR: S1 and S2. CHEST: The patient has tenderness at the area of the pain on the right chest. ABDOMEN: Soft, nontender, no organomegaly. Bowel sound normal. EXTREMITIES: No clubbing. No cyanosis. LABORATORY DATA: WBC 15.3, hemoglobin 9.0, hematocrit 28.1, platelet 141. Sodium 140, potassium 5.6, BUN 37, and creatinine 4.0. Hemoglobin A1c 6.6. Calcium 8.2 and phosphorus 6.0. AST and ALT normal. DIAGNOSES: Chest pain, musculoskeletal, in the area of the tumor. It may be related to the pain related to the lung carcinoma due to local infiltration, acute kidney injury, hematuria, hyperkalemia, anemia, and protein-calorie malnutrition. RECOMMENDATION: Treat this chest pain with analgesics. The patient already received Lopressor 25 mg b.i.d. for tachycardia, which is under control now. The patient's echo has been ordered and is pending. The patient to continue DuoNeb hand nebulizer therapy, continue Vibramycin 100 mg q.12 hour, aztreonam 1 g IV q.12 hour, heparin 5000 units q.12 hour. The patient already received Kayexalate 30 g today for hyperkalemia. The patient is on Megace 400 mg p.o. daily and 5 mg daily, Solu-Medrol 40 mg IV q.12 hour. We will continue present therapy. We will follow with you. Elisabet Willams MD
[2017-01-18] MEDS: Albuterol-Ipratrop 3 mg / 0.5 (3 ml) UD IH SCH ×2 (01:02→07:20)
--- NOTE | 2017-01-18 02:08 | CON ---
DATE: 01/17/2017 CHIEF COMPLAINT: Renal failure. HISTORY OF PRESENT ILLNESS: This is a 56-year-old male with known lung carcinoma who was treated with radiation and has been receiving chemotherapy. Patient is now admitted to the hospital with acute kidney injury, anemia and hematuria. By patient and family's report; for about a week to 10 days, patient has been having some intermittent gross hematuria. He denies any dysuria, urinary frequency or urgency. He reports voiding with a good stream and feels he is emptying completely. Patient was found to have advanced kidney disease. He underwent a renal biopsy today and a consultation is requested regarding the above. PAST MEDICAL HISTORY: Significant for COPD, stage IV lung cancer with mets to his spine. He has been on carboplatin-based chemotherapy. MEDICATIONS: Currently include Azactam, Colace, Dilaudid, doxycycline, DuoNeb, Duragesic, subcu heparin, Lopressor, Lyrica, Megace, Miralax, Norvasc, Percocet, guaifenesin, Solu-Medrol, Tessalon, Tylenol and Zofran. ALLERGIES: ALLERGIC TO PENICILLINS. FAMILY HISTORY: Noncontributory. SOCIAL HISTORY: Positive for smoking in the past. Denies EtOH use. REVIEW OF SYSTEMS: A 12-point review of systems was obtained. Positives for weakness and lethargy. Positive for gross hematuria. Positive for difficulty ambulating. Denies any chest pain or palpitations. Positive for cough and exertional dyspnea. Denies any nausea or vomiting. Other systems are negative. PHYSICAL EXAMINATION: GENERAL: The patient is awake, alert, answering questions. Seen in his room at [facility]. He is in no acute distress. VITAL SIGNS: Show a temperature of 98.3, pulse of 93, BP 143/92, respirations are 20. NECK: Supple. There is no gross adenopathy. CHEST: Exam of the chest revealed no more inspiratory leak, he used to have some rhonchi. CARDIAC: Positive S1 and S2. There is no peripheral edema noted. ABDOMEN: On abdominal exam, the abdomen is soft, nontender, nondistended. There is no hepatosplenomegaly. There is no costovertebral angle tenderness. The bladder is not palpably distended. GENITOURINARY: The phallus is normal. Scrotum is normal. Testes bilaterally distended, nontender. No masses. Epididymides are normal. LABORATORY DATA: WBC count is elevated at 15.3, hemoglobin 9.0, platelets 141, creatinine 4.0, potassium of 5.6, elevated hemoglobin A1c with GFR of 15. Urinalysis showed greater than 300 protein, too numerous to count RBCs, 25-30 WBCs, negative for nitrites. Urine culture grew Proteus mirabilis. Blood cultures are negative at 48 hours. Proteus was between 50,000-100,000 colonies per mL. On radiologic exam, there is a CT scan guided biopsy done. It made no mention of any hydronephrosis. Renal ultrasound done on 01/13/2017, which showed the right kidney; no stone, mass or hydronephrosis; left kidney, no stone, mass, or hydronephrosis. Bladder ultrasound from 01/13/2017 showed normal size prostate gland, prevoid volume of 623. No postvoid residual. Ureteral jets were not visualized. No wall thickening. There is a CT of the chest done yesterday, which showed a right apical neoplasm with associated pleural thickening. Metastases to multiple vertebrae and posterior right ribs. Small right pleural effusion, trace left effusion, compressive atelectasis. IMPRESSION AND PLAN: This is a 56-year-old male with stage IV renal carcinoma. Urologically, patient's renal failure appears to be nephrologic in origin and does not appear obstructive. The bladder ultrasound showed no postvoid residual. The urine has elevated protein and the likely cause of the hematuria is nephrologic in nature, possibly from chemotherapy. The plan for now will be to await the results of his renal biopsy. Continue treatment as per nephrology. For completeness sake, we should consider a cystoscopy at some point given the gross hematuria; however, given his stage IV lung cancer and other medical issues, we could likely hold off on this for now if the urine has grossly cleared and patient continues to be voiding without difficulty. We will continue to follow the patient with you. Bladimir Pierre MD cc:
[2017-01-18] MEDS: oxyCODONE 30 mg Immediate Release Tab PO PRN (02:58)
--- NOTE | 2017-01-18 04:31 | PN ---
REFERRING PHYSICIAN: Dr. Holland. DATE: 01/17/2017 SUBJECTIVE: He is lying in the bed, head of bed at 45 degrees. Family is at bedside. Night was unremarkable, feels better, still has a cough, right chest and shoulder discomfort. No nausea, no vomiting, no diarrhea. PHYSICAL EXAMINATION: GENERAL: In no acute distress. VITAL SIGNS: Temp is 98, heart rate is 110, respiratory rate is 20, blood pressure 146/96, pulse ox is 97% on room air. HEENT: Moist mucous membranes. Small oral cavity. NECK: Supple. No JVD. LUNGS: Has a prolonged expiratory phase with some wheezing and rhonchi. HEART: S1 and S2. ABDOMEN: Soft, nontender. No organomegaly. EXTREMITIES: No edema. NEUROLOGICAL: Awake and alert, follows simple commands. MEDICATIONS: He is on Azactam 1 g IV q. 12 hours, Colace 100 mg 3 times a day, Dilaudid IV drip, doxycycline 100 mg twice a day, DuoNeb q. 6 hours, Duragesic patch q. 72 hours, fentanyl patch q. 72 hours, heparin 5000 units q. 12 hours, 200 mg daily, metoprolol tartrate 25 mg twice a day, Lyrica 25 mg twice a day, Megace 400 mg daily, Miralax 17 g daily, Norvasc 5 mg daily, oxycodone immediate release 30 mg q. 4 hours p.r.n., Percocet 5/325 one tab q. 4 hours p.r.n., Robitussin with Codeine 5 mL q. 6 hours, IV fluid half-normal saline 125 mL per hour, Solu-Medrol 40 mg q. 12 hours, Tessalon Perles 3 tablets a day, Tylenol p.r.n., Zofran p.r.n. LABORATORY DATA: Shows hemoglobin 8.7, hematocrit 26.8, WBC 16.9, platelets are 132. INR 1.13, PTT is 39. Glucose 152. Vanco level 13.1. Urine culture has Proteus mirabilis. Blood culture has been negative. IMPRESSION AND PLAN: Metastatic lung cancer, chronic obstructive lung disease, pneumonia, urinary tract infection, chronic pain syndrome. Spoke to family at bedside. All the questions were answered. Case discussed with Dr. Holland yesterday. Continue antibiotics, IV and inhaled bronchodilators, pain management, gastric prophylaxis, fall precautions. Overall, poor prognosis. We will follow with you. Elisabet Pelaez MD
--- NOTE | 2017-01-18 06:39 | CP.PCM.PN ---
Subjective - Date & Time of Evaluation Date of Evaluation: 01/18/17 Time of Evaluation: 06:30 - Subjective Subjective: called by nurse pt is c/o chocking in throat,no cp no sob .pt has stage 4 lung ca,pnemonia , atelactesis,anemia.pulse ox is 97 % pule is 86 , bp 158/76 Objective - Vital Signs/Intake and Output Vital Signs (last 24 hours): Temp Pulse Resp BP Pulse Ox 98.6 F 110 H 20 146/96 H 97 01/17/17 16:00 01/17/17 16:00 01/17/17 16:00 01/17/17 16:00 01/17/17 16:00 Intake and Output: 01/17/17 01/18/17 18:59 06:59 Intake Total 420 Output Total 550 Balance -130 - Medications Medications: Current Medications Acetaminophen (Tylenol 325mg Tab) 650 mg PO Q4H PRN PRN Reason: Fever >100.5 F Albuterol/Ipratropium (Duoneb 3 Mg/0.5 Mg (3 Ml) Ud) 3 ml IH [id number] [facility] Last Admin: 01/18/17 01:02 Dose: Not Given Albuterol/Ipratropium (Duoneb 3 Mg/0.5 Mg (3 Ml) Ud) 3 ml IH Q2H PRN PRN Reason: Shortness of Breath Last Admin: 01/18/17 05:57 Dose: 3 ml Amlodipine Besylate (Norvasc) 5 mg PO DAILY [facility] Last Admin: 01/17/17 09:28 Dose: 5 mg Benzonatate (Tessalon Perles) 100 mg PO TID [facility] Last Admin: 01/17/17 18:00 Dose: 100 mg Docusate Sodium (Colace) 100 mg PO TID [facility] Last Admin: 01/17/17 18:30 Dose: 100 mg Fentanyl (Duragesic) 1 patch TD Q72H [facility] Last Admin: 01/17/17 22:22 Dose: 1 patch Fentanyl (Duragesic) 1 patch TD Q72H [facility] Last Admin: 01/17/17 22:23 Dose: 1 patch Guaifenesin/Codeine Phosphate (Robitussin W/Codeine) 5 ml PO Q6H [facility] Last Admin: 01/17/17 22:25 Dose: 5 ml Heparin Sodium (Porcine) (Heparin) 5,000 units SC Q12 [facility] PRN Reason: Protocol Last Admin: 01/17/17 22:25 Dose: 5,000 units Aztreonam (Azactam 1 Gm) 100 mls @ 100 mls/hr IVPB Q12 [facility] PRN Reason: Protocol Stop: 01/22/17 10:01 Last Admin: 01/17/17 22:22 Dose: 100 mls/hr Iron Sucrose 200 mg/ Sodium (Chloride) 110 mls @ 110 mls/hr IVPB DAILY [facility] Stop: 01/21/17 10:01 Last Admin: 01/17/17 13:47 Dose: 110 mls/hr Sodium Chloride (Sodium Chloride 0.45%) 1,000 mls @ 125 mls/hr IV .Q8H [facility] Stop: 01/18/17 08:00 Last Admin: 01/17/17 18:09 Dose: 125 mls/hr Doxycycline Hyclate 100 mg/ (Sodium Chloride) 100 mls @ 100 mls/hr IVPB Q12 [facility] PRN Reason: Protocol Last Admin: 01/18/17 01:08 Dose: 100 mls/hr Hydromorphone HCl (Dilaudid-Hp 1 Mg/Ml [employer]) 25 mls @ 0.25 mls/hr IV .Q24H [facility] PRN Reason: 0.25 MG/HR Last Admin: 01/17/17 14:36 Dose: 0.25 mls/hr Megestrol Acetate (Megace) 400 mg PO DAILY [facility] Last Admin: 01/17/17 09:28 Dose: 400 mg Methylprednisolone (Solu-Medrol) 40 mg IVP Q12 [facility] Last Admin: 01/17/17 22:24 Dose: 40 mg Metoprolol Tartrate (Lopressor) 25 mg PO BID [facility] Last Admin: 01/17/17 18:00 Dose: 25 mg Ondansetron HCl (Zofran Inj) 4 mg IVP Q4H PRN PRN Reason: Nausea/Vomiting Last Admin: 01/17/17 10:07 Dose: 4 mg Oxycodone HCl (Oxycodone Immediate Release Tab) 30 mg PO Q4H PRN PRN Reason: Pain, severe (8-10) Last Admin: 01/18/17 02:58 Dose: 30 mg Oxycodone/Acetaminophen (Percocet 5/325 Mg Tab) 1 tab PO Q4H PRN PRN Reason: Pain, moderate (4-7) Stop: 01/20/17 11:18 Polyethylene Glycol (Miralax) 17 gm PO DAILY PRN PRN Reason: Constipation Pregabalin (Lyrica) 25 mg PO BID [facility] Last Admin: 01/17/17 18:01 Dose: 25 mg - Labs Labs: 01/17/17 18:32 PT 12.2 Seconds (9.9-11.8) H 01/14/17 16:03 INR 1.13 (0.93-1.08) H 01/14/17 16:03 APTT 39.2 Seconds (23.7-30.8) H 01/14/17 16:03 - Constitutional Appears: No Acute Distress - Head Exam Head Exam: NORMOCEPHALIC - Eye Exam Pupil Exam: PERRL - ENT Exam ENT Exam: Mucous Membranes Moist - Neck Exam Neck Exam: Full ROM - Respiratory Exam Respiratory Exam: NORMAL BREATHING PATTERN Additional comments: decreased breath sounds. - Cardiovascular Exam Cardiovascular Exam: RRR, +S1 - Rectal Exam Rectal Exam: Deferred - Extremities Exam Extremities Exam: Full ROM - Neurological Exam Neurological Exam: Alert, CN II-XII Intact, Oriented x3 - Psychiatric Exam Psychiatric exam: Anxious - Skin Skin Exam: Dry, Pallor, Warm Assessment and Plan - Assessment and Plan (Free Text) Assessment: choking sensation /?allergic ?anxiety. lung ca stage 4 . pneumonia. atelactesis. Plan: pt recieved duonebs . will give benadryl 25 po x1. ekg ,cardiac iso.
[2017-01-18] MEDS: guaiFENesin-Codeine 100-10mg/5ml Syrup (5 ml) UD PO SCH ×4 (07:06→23:14)
[2017-01-18] MEDS ORDERED: HYDROmorphone 1 mg/ml PCA 25 ML IV PRN ×2 (09:54→11:57)
[2017-01-18] MEDS ORDERED: Oxycodone/Acetaminophen 5/325 mg Tab PO PRN (10:08)
[2017-01-18] MEDS: MethylPREDNISolone 40 mg Vial IVP SCH ×2 (10:10→23:15)
[2017-01-18] MEDS: Megestrol Acetate 40 mg/ml Cup PO SCH (10:10)
[2017-01-18] MEDS: Aztreonam 1 Gm in NS 100mL 100 ML IVPB SCH (10:11)
[2017-01-18] MEDS ORDERED: Sod Polystyrene Sulf 15 gm/60 ml Oral Susp PO ONE (12:33)
--- NOTE | 2017-01-18 13:22 | CARD ---
APPROVED REPORT EKG Measurement Heart [id number] <Conclusion> Normal sinus rhythm Normal ECG
[2017-01-18 13:23] LABS: HEMATOCRIT 27.3 % (42.0-52.0); MEAN CELL VOLUME 91.9 fl (80.0-105.0); MEAN CORPUSCULAR HEMOGLOBIN 29.3 pg (25.0-35.0); MEAN CORPUSCULAR HGB CONC 31.9 g/dl (31.0-37.0); MEAN PLATELET VOLUME 9.9 fl (7.0-11.0); RED CELL DISTRIBUTION WIDTH 16.8 % (11.5-14.5); WHITE BLOOD COUNT 16.1 10^3/ul (4.5-11.0)
[2017-01-18 13:37] LABS: CALCIUM 7.4 mg/dL (8.4-10.5); POTASSIUM 5.4 mmol/L (3.6-5.0)
[2017-01-18 13:49] LABS: BAND 1 % (0-2); NEUTROPHIL 93 % (50.0-70.0); PLATELET COUNT 103 10^3/uL (120.0-450.0)
[2017-01-18 13:50] LABS: LARGE PLATELETS PRESENT
--- NOTE | 2017-01-18 14:06 | CARD ---
APPROVED REPORT EXAM: Two-dimensional and M-mode echocardiogram with Doppler and color Doppler. INDICATION 2D DIMENSIONS IVSd0.8 (0.7-1.1cm)LVDd4.9 (3.9-5.9cm) PWd0.9 (0.7-1.1cm)LVDs3.5 (2.5-4.0cm) FS (%) 28.6 %LVEF (%)55.0 (>50%) M-Mode DIMENSIONS Left Atrium (MM)3.30 (2.5-4.0cm)Aortic Root2.70 (2.2-3.7cm) Aortic Cusp Exc.1.90 (1.5-2.0cm) Aortic Valve AoV Peak Tigzxllc356.0cm/[place] GR.6mmHg Mitral Valve MV E Xzbxuvtr128.0cm/sMV A Rgtnduxd96.8cm/sE/A ratio1.1 TDI Lateral E' Peak V16.50cm/sMedial E' Peak V15.80cm/sE/Lateral E'6.2 E/Medial E'6.5 Tricuspid Valve TR Peak [id number]/sRAP [id number] Peak Gr.30mmHg [id number] LEFT VENTRICLE The left ventricle is normal size. There is normal left ventricular wall thickness. The left ventricular function is normal. There is normal LV segmental wall motion. Transmitral Doppler flow pattern is Grade II-pseudonormal filling dynamics. No left ventricle thrombus noted on this study. There is no ventricular septal defect visualized. There is no left ventricular aneurysm. There is no mass noted in the left ventricle. RIGHT VENTRICLE The right ventricle is normal size. There is normal right ventricular wall thickness. The right ventricular systolic function is normal. ATRIA The left atrium size is normal. The right atrium size is normal. The interatrial septum is intact with no evidence for an atrial septal defect. AORTIC VALVE The aortic valve is thickened but opens well. The aortic valve is mildly sclerotic. There is trace aortic regurgitation. There is no aortic valvular stenosis. There is no aortic valvular vegetation. MITRAL VALVE The mitral valve is thickened but opens well. Mitral regurgitation is mild to moderate. There is no mitral valve stenosis. There is no evidence of mitral valve prolapse. TRICUSPID VALVE The tricuspid valve leaflets are thickened , but open well. There is mild to moderate tricuspid regurgitation.RVSP-40 mmof Hg There is no tricuspid valve stenosis. There is no tricuspid valve prolapse or vegetation. PULMONIC VALVE The pulmonic valve is borderline thickened. There is trace pulmonic valvular regurgitation. There is no pulmonic valvular stenosis. GREAT VESSELS The aortic root is normal in size. The ascending aorta is normal in size. The pulmonary artery is normal. The IVC is dilated. PERICARDIAL EFFUSION There is no pleural effusion. There is no pericardial effusion. <Conclusion> The left ventricle is normal size. There is normal left ventricular wall thickness. The left ventricular function is normal. There is trace aortic regurgitation. Mitral regurgitation is mild to moderate. There is mild to moderate tricuspid regurgitation.RVSP-40 mmof Hg There is no pericardial effusion. The IVC is dilated. no vegetation or thrombus noted.
--- NOTE | 2017-01-18 16:55 | PN ---
DATE: 01/18/2017 SUBJECTIVE: The patient is in bed, in no acute distress, nontoxic. PHYSICAL EXAMINATION: VITAL SIGNS: Temperature is 98, blood pressure is 150/90, respiratory rate of 20, and heart rate of 110. HEENT: Unremarkable. NECK: Supple. LUNGS: Decreased breath sounds. HEART: Normal S1 and S2. ABDOMEN: Soft, nontender. LABORATORY DATA: Reveals a white count of 16,000, hemoglobin of 8, platelets of 103, BUN of 49, creatinine of 3.9. Blood cultures are negative. Urine culture has a Proteus mirabilis, tubbs-sensitive. Review of orders reveal the patient to be on aztreonam. ASSESSMENT AND PLAN: This is a 56-year-old female with hematuria and frequency with her proteus urinary tract infection with a history of right lung mass and poorly differentiated non-small cell lung cancer, status post biopsy in September, had radiotherapy and chemotherapy and chronic obstructive lung disease in this is a 56-year-old, currently day #4 of aztreonam. The patient is also given intermittent vancomycin for pneumonia and we will follow with you. Dr. Lundberg's note is reviewed and Dr. Pelaez's note is reviewed. Jonah Thurman MD
[2017-01-18] MEDS ORDERED: oxyCODONE 10 mg Immediate Release Tab PO PRN (17:40)
[2017-01-18] MEDS: Tiotropium 18 mcg Cap For Inhalation IH SCH (17:48)
[2017-01-18] MEDS ORDERED: Arformoterol 15 mcg/2 ml Inh Sol IH SCH (20:00)
[2017-01-18] MEDS: Arformoterol 15 mcg/2 ml Inh Sol IH SCH (21:13)
[2017-01-18] MEDS: Budesonide 0.5 mg/2 ml Inhal Susp UD IH SCH (21:13)
--- NOTE | 2017-01-18 21:29 | PN ---
DATE: 01/18/2017 REASON FOR CONSULTATION: Followup chest pain, right-sided lung CA, acute kidney injury, hematuria, SUBJECTIVE: The patient is still complaining of chest pain, right side is very tender. Family is at the bedside. Denies any shortness of breath. PHYSICAL EXAMINATION: GENERAL: Complain of generalized weakness, lying flat in the bed, not in apparent distress. VITAL SIGNS: Temperature afebrile, heart rate 92, blood pressure 152/98. HEENT: PERRLA. Extraocular muscles intact. NECK: Supple. CHEST: Very tender on the right side of the chest where the tumor is. Clear air entry, left-sided. HEART: S1 and S2 regular. ABDOMEN: Soft. EXTREMITIES: Clubbing and cyanosis negative. LABORATORY DATA: Blood workup as follows: WBC 16.8, hemoglobin 8.3, hematocrit 26.8, platelet count 132. Chemistry show sodium 140, potassium 5.6, chloride 102, carbon dioxide 17, anion gap of 19, BUN 37, creatinine 4. TSH 0.97. IMPRESSION: Acute kidney injury getting worse, hyperkalemia, anemia, thrombocytopenia, leukocytosis, tenderness in chest, atypical chest pain,tumor invasion possibly lung carcinoma, hematuria, protein-calorie malnutrition. RECOMMENDATION: Continue adequate analgesia. Increase Lopressor to 50 mg b.i.d. Echo to asses LV function. Since the K is 5.6, we will not initially order K, we will give stat Kayexalate and repeat the K in the morning. Overall, the patient's critical long-term prognosis is guarded. The patient's family is at the bedside. We will follow with you. Elisabet Felton MD
--- NOTE | 2017-01-18 21:30 | CP.PCM.PN ---
Subjective - Date & Time of Evaluation Date of Evaluation: 01/16/17 Time of Evaluation: 18:00 - Subjective Subjective: still c/o pain , nephrology dr valenzuela seen him, sill high creatinine, dark urine Objective - Vital Signs/Intake and Output Vital Signs (last 24 hours): Temp Pulse Resp BP Pulse Ox 98 F 92 H 18 135/68 98 01/18/17 08:20 01/18/17 08:20 01/18/17 08:20 01/18/17 19:46 01/18/17 08:20 Intake and Output: 01/18/17 01/19/17 18:59 06:59 Intake Total 620 Balance 620 - Medications Medications: Current Medications Acetaminophen (Tylenol 325mg Tab) 650 mg PO Q4H PRN PRN Reason: Fever >100.5 F Albuterol/Ipratropium (Duoneb 3 Mg/0.5 Mg (3 Ml) Ud) 3 ml IH Q2H PRN PRN Reason: Shortness of Breath Last Admin: 01/18/17 05:57 Dose: 3 ml Amlodipine Besylate (Norvasc) 5 mg PO DAILY [facility] Last Admin: 01/18/17 10:11 Dose: 5 mg Arformoterol Tartrate (Brovana) 15 mcg IH [id number] [facility] Last Admin: 01/18/17 21:13 Dose: 15 mcg Benzonatate (Tessalon Perles) 100 mg PO TID [facility] Last Admin: 01/18/17 17:13 Dose: 100 mg Budesonide (Pulmicort Respules) 0.5 mg IH BIDRESP [facility] Last Admin: 01/18/17 21:13 Dose: 0.5 mg Docusate Sodium (Colace) 100 mg PO TID [facility] Last Admin: 01/18/17 17:14 Dose: Not Given Fentanyl (Duragesic) 1 patch TD Q72H [facility] Last Admin: 01/17/17 22:22 Dose: 1 patch Fentanyl (Duragesic) 1 patch TD Q72H [facility] Last Admin: 01/18/17 13:01 Dose: Not Given Guaifenesin/Codeine Phosphate (Robitussin W/Codeine) 5 ml PO Q6H [facility] Last Admin: 01/18/17 17:13 Dose: 5 ml Heparin Sodium (Porcine) (Heparin) 5,000 units SC Q12 BRIA PRN Reason: Protocol Last Admin: 01/18/17 10:10 Dose: 5,000 units Aztreonam (Azactam 1 Gm) 100 mls @ 100 mls/hr IVPB Q12 BRIA PRN Reason: Protocol Stop: 01/22/17 10:01 Last Admin: 01/18/17 10:11 Dose: 100 mls/hr Iron Sucrose 200 mg/ Sodium (Chloride) 110 mls @ 110 mls/hr IVPB DAILY [facility] Stop: 01/21/17 10:01 Last Admin: 01/18/17 10:12 Dose: 110 mls/hr Doxycycline Hyclate 100 mg/ (Sodium Chloride) 100 mls @ 100 mls/hr IVPB Q12 BRIA PRN Reason: Protocol Last Admin: 01/18/17 10:11 Dose: 100 mls/hr Hydromorphone HCl (Dilaudid-Hp 1 Mg/Ml Picking Machine Operator) 25 mls @ 0.1 mls/hr IV PRN PRN; Protocol PRN Reason: 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 MD ORDER Megestrol Acetate (Megace) 200 mg PO DAILY [facility] Methylprednisolone (Solu-Medrol) 40 mg IVP Q12 [facility] Last Admin: 01/18/17 10:10 Dose: 40 mg Metoprolol Tartrate (Lopressor) 25 mg PO BID [facility] Last Admin: 01/18/17 18:50 Dose: 25 mg Ondansetron HCl (Zofran Inj) 4 mg IVP Q4H PRN PRN Reason: Nausea/Vomiting Last Admin: 01/17/17 10:07 Dose: 4 mg Oxycodone HCl (Oxycodone Immediate Release Tab) 10 mg PO Q4H PRN PRN Reason: Pain, severe (8-10) Polyethylene Glycol (Miralax) 17 gm PO DAILY PRN PRN Reason: Constipation Pregabalin (Lyrica) 25 mg PO BID [facility] Last Admin: 01/18/17 17:13 Dose: 25 mg Tiotropium [place] (Spiriva) 18 mcg IH DAILY [facility] Last Admin: 01/18/17 17:48 Dose: 18 mcg - Labs Labs: 01/18/17 13:10 01/18/17 13:10 PT 12.2 Seconds (9.9-11.8) H 01/14/17 16:03 INR 1.13 (0.93-1.08) H 01/14/17 16:03 APTT 39.2 Seconds (23.7-30.8) H 01/14/17 16:03 - Constitutional Appears: No Acute Distress, Cachectic, Chronically Ill - Head Exam Head Exam: ATRAUMATIC, NORMAL INSPECTION, NORMOCEPHALIC - Eye Exam Eye Exam: EOMI, Normal appearance, PERRL Pupil Exam: NORMAL ACCOMODATION, PERRL - ENT Exam ENT Exam: Mucous Membranes Moist, Normal Exam - Neck Exam Neck Exam: Full ROM, Normal Inspection. absent: Lymphadenopathy - Respiratory Exam Respiratory Exam: Decreased Breath Sounds, Prolonged Expiratory Phase - Cardiovascular Exam Cardiovascular Exam: REGULAR RHYTHM, +S1, +S2. absent: Murmur - GI/Abdominal Exam GI & Abdominal Exam: Soft, Normal Bowel Sounds. absent: Tenderness - Neurological Exam Neurological Exam: Alert, Awake Neuro motor strength exam: Right Upper Extremity: 5 - Psychiatric Exam Psychiatric exam: Normal Mood - Skin Skin Exam: Normal Color Assessment and Plan (1) Edema of both legs Status: Acute (2) Hematuria Status: Acute (3) Intractable pain Status: Acute (4) Lung cancer Status: Acute (5) Neck pain Status: Acute - Assessment and Plan (Free Text) Plan: oxycodone 30 mg q4h prn, contiue duragesic patc, , diludid 1mg q4h prn, iv fluid, h/h consider blood transfusion,, f/up with consults
--- NOTE | 2017-01-18 21:35 | CP.PCM.PN ---
Subjective - Date & Time of Evaluation Date of Evaluation: 01/17/17 Time of Evaluation: 18:00 - Subjective Subjective: neck rt side chest neck pain 10/10 on dilaudid pump, biobsy done Objective - Vital Signs/Intake and Output Vital Signs (last 24 hours): Temp Pulse Resp BP Pulse Ox 98 F 92 H 18 135/68 98 01/18/17 08:20 01/18/17 08:20 01/18/17 08:20 01/18/17 19:46 01/18/17 08:20 Intake and Output: 01/18/17 01/19/17 18:59 06:59 Intake Total 620 Balance 620 - Medications Medications: Current Medications Acetaminophen (Tylenol 325mg Tab) 650 mg PO Q4H PRN PRN Reason: Fever >100.5 F Albuterol/Ipratropium (Duoneb 3 Mg/0.5 Mg (3 Ml) Ud) 3 ml IH Q2H PRN PRN Reason: Shortness of Breath Last Admin: 01/18/17 05:57 Dose: 3 ml Amlodipine Besylate (Norvasc) 5 mg PO DAILY [facility] Last Admin: 01/18/17 10:11 Dose: 5 mg Arformoterol Tartrate (Brovana) 15 mcg IH [id number] [facility] Last Admin: 01/18/17 21:13 Dose: 15 mcg Benzonatate (Tessalon Perles) 100 mg PO TID [facility] Last Admin: 01/18/17 17:13 Dose: 100 mg Budesonide (Pulmicort Respules) 0.5 mg IH BIDRESP [facility] Last Admin: 01/18/17 21:13 Dose: 0.5 mg Docusate Sodium (Colace) 100 mg PO TID [facility] Last Admin: 01/18/17 17:14 Dose: Not Given Fentanyl (Duragesic) 1 patch TD Q72H [facility] Last Admin: 01/17/17 22:22 Dose: 1 patch Fentanyl (Duragesic) 1 patch TD Q72H [facility] Last Admin: 01/18/17 13:01 Dose: Not Given Guaifenesin/Codeine Phosphate (Robitussin W/Codeine) 5 ml PO Q6H [facility] Last Admin: 01/18/17 17:13 Dose: 5 ml Heparin Sodium (Porcine) (Heparin) 5,000 units SC Q12 BRIA PRN Reason: Protocol Last Admin: 01/18/17 10:10 Dose: 5,000 units Aztreonam (Azactam 1 Gm) 100 mls @ 100 mls/hr IVPB Q12 BRIA PRN Reason: Protocol Stop: 01/22/17 10:01 Last Admin: 01/18/17 10:11 Dose: 100 mls/hr Iron Sucrose 200 mg/ Sodium (Chloride) 110 mls @ 110 mls/hr IVPB DAILY [facility] Stop: 01/21/17 10:01 Last Admin: 01/18/17 10:12 Dose: 110 mls/hr Doxycycline Hyclate 100 mg/ (Sodium Chloride) 100 mls @ 100 mls/hr IVPB Q12 BRIA PRN Reason: Protocol Last Admin: 01/18/17 10:11 Dose: 100 mls/hr Hydromorphone HCl (Dilaudid-Hp 1 Mg/Ml Metal Rivet Machine Operator) 25 mls @ 0.1 mls/hr IV PRN PRN; Protocol PRN 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: 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 MD ORDER Megestrol Acetate (Megace) 200 mg PO DAILY [facility] Methylprednisolone (Solu-Medrol) 40 mg IVP Q12 [facility] Last Admin: 01/18/17 10:10 Dose: 40 mg Metoprolol Tartrate (Lopressor) 25 mg PO BID [facility] Last Admin: 01/18/17 18:50 Dose: 25 mg Ondansetron HCl (Zofran Inj) 4 mg IVP Q4H PRN PRN Reason: Nausea/Vomiting Last Admin: 01/17/17 10:07 Dose: 4 mg Oxycodone HCl (Oxycodone Immediate Release Tab) 10 mg PO Q4H PRN PRN Reason: Pain, severe (8-10) Polyethylene Glycol (Miralax) 17 gm PO DAILY PRN PRN Reason: Constipation Pregabalin (Lyrica) 25 mg PO BID [facility] Last Admin: 01/18/17 17:13 Dose: 25 mg Tiotropium [place] (Spiriva) 18 mcg IH DAILY [facility] Last Admin: 01/18/17 17:48 Dose: 18 mcg - Labs Labs: 01/18/17 13:10 01/18/17 13:10 PT 12.2 Seconds (9.9-11.8) H 01/14/17 16:03 INR 1.13 (0.93-1.08) H 01/14/17 16:03 APTT 39.2 Seconds (23.7-30.8) H 01/14/17 16:03 - Constitutional Appears: Cachectic, Chronically Ill - Head Exam Head Exam: ATRAUMATIC, NORMAL INSPECTION, NORMOCEPHALIC - Eye Exam Eye Exam: EOMI, Normal appearance, PERRL - ENT Exam ENT Exam: Mucous Membranes Moist, Normal Exam - Neck Exam Neck Exam: Full ROM, Normal Inspection. absent: Lymphadenopathy - Respiratory Exam Respiratory Exam: Decreased Breath Sounds, Prolonged Expiratory Phase - Cardiovascular Exam Cardiovascular Exam: REGULAR RHYTHM, +S1, +S2. absent: Murmur - GI/Abdominal Exam GI & Abdominal Exam: Soft, Normal Bowel Sounds. absent: Tenderness - Rectal Exam Rectal Exam: Deferred - Extremities Exam Extremities Exam: Full ROM, Normal Capillary Refill, Normal Inspection. absent : Joint Swelling, Pedal Edema - Back Exam Back Exam: NORMAL INSPECTION - Neurological Exam Neuro motor strength exam: Right Upper Extremity: 5 (mild weakness) - Psychiatric Exam Psychiatric exam: Anxious - Skin Skin Exam: Normal Color Assessment and Plan (1) Edema of both legs Status: Acute (2) Hematuria Status: Acute (3) Intractable pain Status: Acute (4) Lung cancer Status: Acute (5) Neck pain Status: Acute - Assessment and Plan (Free Text) Plan: continue pain managment ,oxycodone 30 mg q4h prn for sever pain,f/up biobsy result, continue current meds
--- NOTE | 2017-01-18 21:45 | CP.PCM.PN ---
Subjective - Date & Time of Evaluation Date of Evaluation: 01/18/17 Time of Evaluation: 17:00 - Subjective Subjective: nurse noted slow breathing and lethargic in am,no on dilaudid iv, percacet 5 mg , duragesic patch, creatinine is down 3.9. urine clearer Objective - Vital Signs/Intake and Output Vital Signs (last 24 hours): Temp Pulse Resp BP Pulse Ox 98 F 92 H 18 135/68 98 01/18/17 08:20 01/18/17 08:20 01/18/17 08:20 01/18/17 19:46 01/18/17 08:20 Intake and Output: 01/18/17 01/19/17 18:59 06:59 Intake Total 620 Balance 620 - Medications Medications: Current Medications Acetaminophen (Tylenol 325mg Tab) 650 mg PO Q4H PRN PRN Reason: Fever >100.5 F Albuterol/Ipratropium (Duoneb 3 Mg/0.5 Mg (3 Ml) Ud) 3 ml IH Q2H PRN PRN Reason: Shortness of Breath Last Admin: 01/18/17 05:57 Dose: 3 ml Amlodipine Besylate (Norvasc) 5 mg PO DAILY [facility] Last Admin: 01/18/17 10:11 Dose: 5 mg Arformoterol Tartrate (Brovana) 15 mcg IH [id number] [facility] Last Admin: 01/18/17 21:13 Dose: 15 mcg Benzonatate (Tessalon Perles) 100 mg PO TID [facility] Last Admin: 01/18/17 17:13 Dose: 100 mg Budesonide (Pulmicort Respules) 0.5 mg IH BIDRESP [facility] Last Admin: 01/18/17 21:13 Dose: 0.5 mg Docusate Sodium (Colace) 100 mg PO TID [facility] Last Admin: 01/18/17 17:14 Dose: Not Given Fentanyl (Duragesic) 1 patch TD Q72H [facility] Last Admin: 01/17/17 22:22 Dose: 1 patch Fentanyl (Duragesic) 1 patch TD Q72H [facility] Last Admin: 01/18/17 13:01 Dose: Not Given Guaifenesin/Codeine Phosphate (Robitussin W/Codeine) 5 ml PO Q6H [facility] Last Admin: 01/18/17 17:13 Dose: 5 ml Heparin Sodium (Porcine) (Heparin) 5,000 units SC Q12 BRIA PRN Reason: Protocol Last Admin: 01/18/17 10:10 Dose: 5,000 units Aztreonam (Azactam 1 Gm) 100 mls @ 100 mls/hr IVPB Q12 BRIA PRN Reason: Protocol Stop: 01/22/17 10:01 Last Admin: 01/18/17 10:11 Dose: 100 mls/hr Iron Sucrose 200 mg/ Sodium (Chloride) 110 mls @ 110 mls/hr IVPB DAILY [facility] Stop: 01/21/17 10:01 Last Admin: 01/18/17 10:12 Dose: 110 mls/hr Doxycycline Hyclate 100 mg/ (Sodium Chloride) 100 mls @ 100 mls/hr IVPB Q12 BRIA PRN Reason: Protocol Last Admin: 01/18/17 10:11 Dose: 100 mls/hr Hydromorphone HCl (Dilaudid-Hp 1 Mg/Ml Case Picker) 25 mls @ 0.1 mls/hr IV PRN PRN; Protocol 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 Megestrol Acetate (Megace) 200 mg PO DAILY [facility] Methylprednisolone (Solu-Medrol) 40 mg IVP Q12 [facility] Last Admin: 01/18/17 10:10 Dose: 40 mg Metoprolol Tartrate (Lopressor) 25 mg PO BID [facility] Last Admin: 01/18/17 18:50 Dose: 25 mg Ondansetron HCl (Zofran Inj) 4 mg IVP Q4H PRN PRN Reason: Nausea/Vomiting Last Admin: 01/17/17 10:07 Dose: 4 mg Oxycodone HCl (Oxycodone Immediate Release Tab) 10 mg PO Q4H PRN PRN Reason: Pain, severe (8-10) Polyethylene Glycol (Miralax) 17 gm PO DAILY PRN PRN Reason: Constipation Pregabalin (Lyrica) 25 mg PO BID [facility] Last Admin: 01/18/17 17:13 Dose: 25 mg Tiotropium [place] (Spiriva) 18 mcg IH DAILY [facility] Last Admin: 01/18/17 17:48 Dose: 18 mcg - Labs Labs: 01/18/17 13:10 01/18/17 13:10 PT 12.2 Seconds (9.9-11.8) H 08/15/17 16:03 INR 1.13 (0.93-1.08) H 01/14/17 16:03 APTT 39.2 Seconds (23.7-30.8) H 01/14/17 16:03 - Constitutional Appears: Chronically Ill - Head Exam Head Exam: ATRAUMATIC, NORMAL INSPECTION, NORMOCEPHALIC - Eye Exam Eye Exam: EOMI, Normal appearance, PERRL Pupil Exam: NORMAL ACCOMODATION, PERRL - ENT Exam ENT Exam: Mucous Membranes Moist, Normal Exam - Respiratory Exam Respiratory Exam: Decreased Breath Sounds, Prolonged Expiratory Phase - Cardiovascular Exam Cardiovascular Exam: REGULAR RHYTHM, +S1, +S2. absent: Murmur - GI/Abdominal Exam GI & Abdominal Exam: Soft, Normal Bowel Sounds. absent: Tenderness - Rectal Exam Rectal Exam: Deferred - Extremities Exam Extremities Exam: Full ROM, Normal Capillary Refill, Normal Inspection. absent : Joint Swelling, Pedal Edema - Back Exam Back Exam: NORMAL INSPECTION - Neurological Exam Neurological Exam: Alert, Awake, CN II-XII Intact, Normal Gait, Oriented x3 Neuro motor strength exam: Right Upper Extremity: 5 (mild weak) - Psychiatric Exam Psychiatric exam: Anxious - Skin Skin Exam: Dry, Intact, Normal Color, Warm Assessment and Plan (1) Edema of both legs Status: Acute (2) Hematuria Status: Acute (3) Intractable pain Status: Acute (4) Lung cancer Status: Acute (5) Neck pain Status: Acute - Assessment and Plan (Free Text) Plan: more alert awake, sever pain 10/10 , need increase oxycodone 15 mg q4h prn,pain managment consults, continue current treatment, discussed patient family poor prognosis
--- NOTE | 2017-01-19 00:02 | PN ---
DATE: SUBJECTIVE: Patient is seen lying in bed. He appears to be in moderate respiratory distress. He complains of nausea. He reports he is not feeling well. He has no appetite. PHYSICAL EXAMINATION GENERAL: A middle aged lying in bed in the room, in moderate respiratory distress. VITAL SIGNS: Blood pressure 136/84, heart rate 92, respiratory rate 18, temperature 98. HEENT: Normocephalic, atraumatic, positive pallor. NECK: Supple. No JVD. LUNGS: Bilateral rhonchi, bilateral equal expansion. CARDIAC: S1 and S2, regular rate and rhythm, no murmur, no rub. ABDOMEN: Distended, soft, nontender, bowel sounds present. EXTREMITIES: 1+ pitting edema of the lower extremities. INTAKE AND OUTPUT: 940/550. LABORATORY DATA: WBC 16, hemoglobin 8.7, hematocrit 27, platelets 103. Polys 93, bands 1, lymphocytes 2, monocytes 4. Sodium 136, potassium 5.4, chloride 108, CO2 15, BUN 49, creatinine 3.9, glucose 105, calcium 7.4, albumin 3.2. Urine culture proteus, blood culture no growth. Echocardiogram: Normal left ventricular size and thickness, normal left ventricular function, trace aortic regurgitation, mild to moderate MR, mild to moderate TR, no pericardial effusion. CURRENT MEDICATIONS: Azactam, Brovana, Colace, Dilaudid, doxycycline, Duragesic, heparin, iron sucrose 200 daily, Lopressor, pregabalin, Megace, Miralax, amlodipine, oxycodone, Solu-Medrol, Spiriva, Tessalon Perles, Tylenol, Zofran, normal saline at 125. ASSESSMENT: 1. Acute kidney injury. 2. Proteus urinary tract infection. 3. Possible pneumonia. 4. Hematuria. 5. 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 6. Status post chemotherapy. 7. Volume overload. 8. Hyperkalemia secondary to acute kidney injury. PLAN: 1. Discontinue IV fluids. 2. Lasix 40 mg IV push x1 dose. 3. Avoid nephrotoxins. 4. Creatinine appears to be plateauing. Hopefully this will herald the phase of renal recovery. 5. Followup kidney biopsy. 6. Picture not consistent with acute interstitial nephritis. 7. Appears to be acute tubular necrosis. Brenda Meléndez MD [facility] # [id number]
--- NOTE | 2017-01-19 00:36 | PN ---
DATE: 01/18/2017 This is patient's hospital visit on the medical floor. For Dr. Leary. 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 Meléndez. He also has worsening anemic indices which will be monitored with transfusion as indicated. He is on SPA TECHNICIAN pump with the patient found so lethargic earlier today with a review of his medications done and adjustment of the SPA TECHNICIAN downwards as he is also having a fentanyl patch 150 mcg every 3 days given with oral narcotic analgesics which will be adjusted. At present, he appears to be more alert and is resting comfortably and he is in no acute distress and wants to go home to possibly smoke cigarettes as he has been a smoker in the past. However, he was dissuaded as SPA TECHNICIAN pump needs to be continued temporarily for his severe pain with his kidney function also being monitored with abnormal electrolytes. PHYSICAL EXAMINATION: VITAL SIGNS: Temperature 98, pulse 92, respirations 18, blood pressure 158/99, pulse ox 98%. HEENT: Unremarkable with his pentecostalism sunken. He appears mildly cachectic. NECK: Supple. HEART: Tachy rate, regular rhythm. LUNGS: Expiratory wheezes right greater than left with occasional rhonchi. ABDOMEN: Soft, scaphoid, nontender. EXTREMITIES: No edema. SKIN: Warm and dry. NEUROLOGIC: Awake and alert at this point. LABORATORY DATA: The patient's labs was done with a white blood cell count of 16.1, hemoglobin of 8.7 done peripherally, not with his port, with a platelet count of 103,000. His chem metabolic panel was also done today showing a potassium of 5.4, BUN of 49, creatine of 3.9 for which he is being followed by Dr. Meléndez and Dr. Law. The patient also had an EKG done earlier today. It was read as normal sinus rhythm, normal EKG. He also had an echocardiogram done today. It was read as trace aortic regurgitation. No vegetation is noted. 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 PLAN: The plan for this patient is to continue his present medical regimen with aggressive treatment of his pain and monitor clinically for his anemic indices with transfusion as indicated with kidney function to be monitored as per Dr. Meléndez. Prognosis for this patient is guarded. Reagan Antoine MD
[2017-01-19] MEDS: Aztreonam 1 Gm in NS 100mL 100 ML IVPB SCH ×3 (03:59→21:11)
--- NOTE | 2017-01-19 04:19 | PN ---
PULMONARY PROGRESS NOTE DATE: 01/18/2017 REFERRING PHYSICIAN: Dr. Holland. SUBJECTIVE: He is lying in the bed, getting blood transfusion, still has some cough and shortness of breath. No nausea, no vomiting, and no diarrhea. No leg pain and no leg swelling. PHYSICAL EXAMINATION: GENERAL: No acute distress. VITAL SIGNS: Temperature is 98, heart rate 92, respiratory rate is 18, blood pressure is 135/68, pulse oxy 98% on 2 liter nasal cannula. HEENT: Moist mucous membrane. Small oral cavity. NECK: Supple. No JVD. LUNGS: Few scattered rhonchi at the base. No crackles. HEART: S1 and S2. ABDOMEN: Soft, nontender. No organomegaly. EXTREMITIES: No edema. NEUROLOGIC: Awake and alert. Follow simple command. LABORATORY DATA: Shows hemoglobin 8.7, hematocrit 27.3, WBC is 16.1, platelet is 103. Sodium 136, potassium 5.4, chloride 108, bicarbonate is 15, BUN 49, creatinine 3.9, glucose is 105, calcium is 7.4. Microbiology, urine culture shows proteus mirabilis. His echocardiogram of the heart done shows left ventricle is normal, normal left ventricle wall thickness, left ventricle function is normal, trace aortic regurgitation. MEDICATIONS: He is on Azactam 1 gram IV q.12h., Brovana 50 mcg inhale twice a day, Colace 100 mg three times a day, also getting Dilaudid PCR, doxycycline 100 mg twice a day, magnesium oxide p.r.n., DuoNeb q.2h. p.r.n., Duragesic patch q.72h., which has stopped second one, heparin 5000 subcutaneous q.8h., IV Sucrose, metoprolol tartrate 25 mg twice a day, Lyrica 25 mg twice a day, Megace 200 mg daily, MiraLAX 17 g daily, Norvasc 5 mg daily, oxycodone immediate release 10 mg q.4h. p.r.n., Percocet, Pulmicort inhaled twice a day, Robitussin with codeine 5 mL q.6h., Solu-Medrol 40 mg q.12h., 18 mEq daily, Tessalon Perles 100 mg three times a day, Tylenol p.r.n., Zofran p.r.n. IMPRESSION AND PLAN: Metastatic lung cancer, chronic obstructive lung disease, pneumonia, urinary tract infection, chronic vein syndrome. Continue antibiotics, bronchodilator, gastric prophylaxis, DVT prophylaxis, incentive spirometry, out of bed to chair, pain management. Follow up BUN and creatinine and electrolyte. We will follow with you. Elisabet Pelaez MD
[2017-01-19] MEDS: guaiFENesin-Codeine 100-10mg/5ml Syrup (5 ml) UD PO SCH ×4 (05:00→21:12)
[2017-01-19] MEDS: Budesonide 0.5 mg/2 ml Inhal Susp UD IH SCH ×2 (08:31→21:45)
[2017-01-19] MEDS: Arformoterol 15 mcg/2 ml Inh Sol IH SCH ×2 (08:31→21:45)
[2017-01-19] MEDS: MethylPREDNISolone 40 mg Vial IVP SCH ×2 (10:17→21:12)
[2017-01-19] MEDS: Megestrol Acetate 40 mg/ml Cup PO SCH (10:17)
[2017-01-19] MEDS: Tiotropium 18 mcg Cap For Inhalation IH SCH (10:18)
[2017-01-19 10:35] LABS: BILIRUBIN,TOTAL 0.3 mg/dL (0.2-1.3); CALCIUM 7.1 mg/dL (8.4-10.5); POTASSIUM 4.4 mmol/L (3.6-5.0); TOTAL PROTEIN 5.7 g/dL (5.8-8.3)
[2017-01-19 10:42] LABS: GRAN # 12.86 (1.4-6.5); GRAN % 87.9 % (50.0-68.0); LYMPH # 0.7 (1.2-3.4); LYMPH % 4.6 % (22.0-35.0); MEAN CELL VOLUME 90.6 fl (80.0-105.0); MEAN CORPUSCULAR HEMOGLOBIN 29.4 pg (25.0-35.0); MEAN CORPUSCULAR HGB CONC 32.5 g/dl (31.0-37.0); MEAN PLATELET VOLUME 10.1 fl (7.0-11.0); MONO # 1.1 (0.1-0.6); MONO % 7.5 % (1.0-6.0); RED CELL DISTRIBUTION WIDTH 16.4 % (11.5-14.5); WHITE BLOOD COUNT 14.6 10^3/ul (4.5-11.0)
[2017-01-19] MEDS ORDERED: Ergocalciferol 50,000 Intl Units Cap PO SCH (14:00)
--- NOTE | 2017-01-19 15:04 | PN ---
DATE: 01/19/2017 SUBJECTIVE: The patient is in bed, in no acute distress, nontoxic. PHYSICAL EXAMINATION VITAL SIGNS: Temperature is 98, blood pressure is 150/90, respiratory rate of 18 and heart rate of 92. HEENT: Unremarkable. NECK: Supple. LUNGS: Decreased breath sounds. HEART: Normal S1 and S2. ABDOMEN: Soft and nontender. LABORATORY DATA: Reveal the patient's white count of 14,600, hemoglobin of 9, BUN of 55, creatinine of 3.6 and procalcitonin is 0.98. Urinalysis is noted and Proteus mirabilis in the urine is noted. The patient is on aztreonam. ASSESSMENT AND PLAN: This 56-year-old male with hematuria and frequency and Proteus mirabilis urinary tract infection, history of right lung mass, poorly-differentiated non-small cell lung cancer, status post biopsy in September, had radiation and chemotherapy and chronic obstructive lung disease and day #5 of aztreonam and given intermittent vancomycin for pneumonia to complete his course. By definition, he is a man who is complicated with urinary tract infection. Vancomycin random level on was 13 and we will check a vancomycin random level in the a.m. Jonah Thurman MD
--- NOTE | 2017-01-19 18:19 | PN ---
DATE: 01/19/2017 This is his hospital visit for Dr. Leary. 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 He has a hemoglobin of 9.1 today and is now reporting that his pain is improved after yesterday's adjustment on his narcotic analgesics due to the patient's lethargy and then the pain exacerbation with the reactivation of his ROLL EXAMINER narcotic pump with Dilaudid as per Dr. Gary Fermin. He is feeling better this visit. PHYSICAL EXAMINATION: GENERAL: He appears cachectic. VITAL SIGNS: Temperature 98, pulse 92, respirations 18, blood pressure 135/68, pulse ox 98%. HEENT: Sunken temples. NECK: Supple. HEART: Tachy rate, regular rhythm. LUNGS: Rare rhonchi. ABDOMEN: Scaphoid, soft and nontender. EXTREMITIES: No edema. SKIN: Warm, dry and clear. The patient is 5 feet 4 inches tall and weighs 129 pounds. LABORATORY DATA: The patient's labs were done; white blood cell count of 14.6, hemoglobin of 9.1, hematocrit of 28.0, platelet count of 90,000. His chemistry panel shows a potassium of 4.4 improved from 5.4 yesterday, BUN of 56, creatinine of 3.6 for which he is followed by Dr. Meléndez, Renal. Calcium 7.1. ASSESSMENT: The assessment for this patient is that of intractable pain of cancer, stage IV non-small cell carcinoma of the lung with metastasis to the thoracic spine, acute renal failure, urinary tract infection, hematuria, deconditioning and failure to thrive, and chronic obstructive pulmonary disease. Pneumonia being treated. PLAN: The plan for this patient after conversation with Dr. Leary are to continue his narcotic analgesics as indicated. The patient appears better today with family at the bedside. He is sitting up with his legs dangling over the bed, reported that pain is improved today. The prognosis for this patient is guarded. We will monitor him clinically and with labs. Reagan Antoine MD [facility] # [id number]
--- NOTE | 2017-01-19 21:48 | PN ---
DATE: 01/19/2017 SUBJECTIVE: The patient is seen sitting up in bed. He is awake, he is alert, and he is comfortable. He is eating lunch. Three sisters are at bedside. PHYSICAL EXAMINATION: GENERAL: Elderly male sitting in bed. VITAL SIGNS: Blood pressure 135/68, heart rate 92, respiratory rate 18, temperature 98.2. HEENT: Normocephalic, atraumatic. Positive PERRLA. NECK: Supple. No JVD. LUNGS: Bilateral equal air entry, bilateral rhonchi. CARDIAC: S1 and S2, regular rate and rhythm, no murmur, no rub. normal. ABDOMEN: Obese, distended, soft, nontender. Bowel sounds present. EXTREMITIES: 1+ pitting edema of the lower extremities. INTAKE AND OUTPUT: 940/550. LABORATORY DATA: WBC 14.6, hemoglobin 9.1, hematocrit 28, platelets 90. Sodium 137, potassium 4.4, chloride 107, CO2 18, BUN 55, creatinine 3.6, glucose 103, calcium 7.1, albumin 2.8 corrected calcium is 8.0, globulin 2.9, PTH 25, vitamin D 16.2. Urine culture, proteus. CURRENT MEDICATIONS: Azactam 1 mg q.12h., Brovana, Colace, Dilaudid, doxycycline 100 q.12h., Duragesic, heparin, iron sucrose 200 daily, Lopressor 25 b.i.d., Lyrica, Megace, amlodipine 5, Guaifenesin, Solu-Medrol, Spiriva, Tessalon Perles, and Zofran. ASSESSMENT: 1. Acute kidney injury in the setting of recent chemotherapy, which is potentially nephrotoxic, proteus urinary tract infection, pneumonia. 2. Workup consistent with acute tubular necrosis. 3. Pneumo function seems to be plateauing. 4. Hypocalcemia with low vitamin D and low intact PTH. 5. Metastatic lung cancer with bone metastases. 6. Anemia. PLAN: 1. Liver function is plateauing. 2. *------* came 30 mL per minute. 3. Avoidance of toxins. 4. Start [place] 50,000 units once a week. 5. Monitor daily electrolytes. 6. Followup kidney biopsy report. Brenda Meléndez MD
--- NOTE | 2017-01-19 22:11 | PN ---
DATE: 01/19/2017 SUBJECTIVE: The patient is lying in bed with O2 via nasal cannula. Still has occasional cough and some shortness of breath. No nausea or vomiting. No diarrhea. No lower extremity swelling. PHYSICAL EXAMINATION VITAL SIGNS: Temperature is 98, pulse is 92, respirations are 18, and blood pressure is 135/68. SKIN: Warm and dry. HEENT: Head is atraumatic and normocephalic. Eyes; reactive to light. Ear, nose and throat seem to be within normal limits. NECK: Supple. No JVD. No thyroid enlargement. No lymph nodes. HEART: Regular rate and rhythm. Normal S1 and S2. LUNGS: Reveal decreased breath sounds at bases. ABDOMEN: Soft and nontender. GENITALIA AND RECTAL: Deferred. MUSCULOSKELETAL: No joint deformities. EXTREMITIES: Reveal no significant edema. NEUROLOGIC: He seems to be grossly intact. IMPRESSION: This patient has lung carcinoma with metastatic lesions. He has chronic obstructive pulmonary disease, pneumonia, and urinary tract infection. PLAN: We will continue with antibiotics, bronchodilators, gastric prophylaxis, and DVT prophylaxis, incentive spirometry, and we will continue to treat aggressively along with the other consultants and the primary care doctor. Renzo Borden MD
--- NOTE | 2017-01-19 23:47 | PN ---
DATE: 01/20/2017 REASON FOR CONSULTATION: Follow up right-sided chest pain secondary to tumor, lung CA, acute kidney injury, hematuria, cardiac evaluation. SUBJECTIVE: The patient is still complaining of right-sided pain and tenderness. Denies any shortness of breath and palpitations. OBJECTIVE GENERAL: The patient is sitting at the bedside and feels a little better. Not in apparent distress. VITAL SIGNS: Temperature afebrile, heart rate 92, blood pressure 136/84. HEENT: PERRLA. Extraocular muscles intact. NECK: Supple. No carotid bruits or thyromegaly. CHEST: Clear to auscultation. HEART: S1 and S2 regular. ABDOMEN: Soft. EXTREMITIES: Clubbing and cyanosis negative. LABORATORY DATA: Blood workup as follows: WBC 14.7, hemoglobin 9, hematocrit 19.6, platelet count 90. Chemistry show sodium 137, potassium 4.4, chloride 107, carbon dioxide 18, anion gap of 16, BUN 55, creatinine 3.6. Total protein 5.7, albumin 2.8, albumin globulin ratio 1.0. IMPRESSION: A 56-year-old male recently diagnosed with lung carcinoma, smoker admitted with right-sided chest pain secondary to tumor, possibly according to the chest wall, acute kidney injury, leukocytosis, thrombocytopenia, status post chemotherapy, hematuria, protein-calorie malnutrition which was not present on admission, protein-calorie malnutrition is moderate, chest pain. EKG revealed no evidence of acute WA, no evidence of acute coronary syndrome. The patient had echocardiography done that showed mild to moderate mitral regurgitation, mild to moderate tricuspid regurgitation, RV systolic pressure of 40, normal LV function, ejection fraction 55%. RECOMMENDATION: Monitor electrolytes. Monitor hemoglobin and platelet count as per heme/onc. Consider transfusion if it goes below 8. We will follow with you. CVS status is stable. Continue hydration. Monitor renal function. Avoid nephrotoxic medication. If the patient needs blood pressure medication only use low dose beta paty or calcium channel paty, avoid JOSTIN inhibitor. We will follow with you. Thank you Dr. Fermin for providing me the opportunity in taking care of Bebeto Tran. Elisabet Felton MD [facility] # [id number]
[2017-01-20] MEDS: guaiFENesin-Codeine 100-10mg/5ml Syrup (5 ml) UD PO SCH ×3 (05:28→22:33)
[2017-01-20 06:47] LABS: GRAN # 12.12 (1.4-6.5); GRAN % 88.9 % (50.0-68.0); HEMATOCRIT 25.9 % (42.0-52.0); LYMPH # 0.6 (1.2-3.4); LYMPH % 4.4 % (22.0-35.0); MEAN CELL VOLUME 89.9 fl (80.0-105.0); MEAN CORPUSCULAR HEMOGLOBIN 29.2 pg (25.0-35.0); MEAN CORPUSCULAR HGB CONC 32.4 g/dl (31.0-37.0); MEAN PLATELET VOLUME 9.7 fl (7.0-11.0); MONO # 0.9 (0.1-0.6); MONO % 6.7 % (1.0-6.0); RED CELL DISTRIBUTION WIDTH 16.2 % (11.5-14.5); WHITE BLOOD COUNT 13.6 10^3/ul (4.5-11.0)
[2017-01-20 07:10] LABS: BILIRUBIN,TOTAL 0.2 mg/dL (0.2-1.3); TOTAL PROTEIN 5.4 g/dL (5.8-8.3)
[2017-01-20 07:22] LABS: CALCIUM 6.8 mg/dL (8.4-10.5)
[2017-01-20] MEDS: Arformoterol 15 mcg/2 ml Inh Sol IH SCH ×2 (08:48→20:15)
[2017-01-20] MEDS: Budesonide 0.5 mg/2 ml Inhal Susp UD IH SCH ×2 (08:49→20:15)
[2017-01-20] MEDS: MethylPREDNISolone 40 mg Vial IVP SCH ×2 (09:59→21:17)
[2017-01-20] MEDS: Megestrol Acetate 40 mg/ml Cup PO SCH (10:00)
[2017-01-20] MEDS: Tiotropium 18 mcg Cap For Inhalation IH SCH (10:00)
--- NOTE | 2017-01-20 14:58 | CP.PCM.PN ---
Subjective - Date & Time of Evaluation Date of Evaluation: 01/20/17 Time of Evaluation: 11:50 - Subjective Subjective: Comfortable in bed, not in distress, afebrile, no SOB at rest. No fevers. Objective - Vital Signs/Intake and Output Vital Signs (last 24 hours): Temp Pulse Resp BP Pulse Ox 98.4 F 94 H 18 141/81 98 01/20/17 05:30 01/20/17 05:30 01/20/17 05:30 01/20/17 05:30 01/20/17 05:30 Intake and Output: 01/20/17 01/20/17 06:59 18:59 Intake Total 300 Output Total 500 Balance -200 - Medications Medications: Current Medications Acetaminophen (Tylenol 325mg Tab) 650 mg PO Q4H PRN PRN Reason: Fever >100.5 F Albuterol/Ipratropium (Duoneb 3 Mg/0.5 Mg (3 Ml) Ud) 3 ml IH Q2H PRN PRN Reason: Shortness of Breath Last Admin: 01/18/17 05:57 Dose: 3 ml Amlodipine Besylate (Norvasc) 5 mg PO DAILY [facility] Last Admin: 01/20/17 10:00 Dose: 5 mg Arformoterol Tartrate (Brovana) 15 mcg IH [id number] [facility] Last Admin: 01/20/17 08:48 Dose: 15 mcg Benzonatate (Tessalon Perles) 100 mg PO TID [facility] Last Admin: 01/20/17 10:00 Dose: 100 mg Budesonide (Pulmicort Respules) 0.5 mg IH BIDRESP [facility] Last Admin: 01/20/17 08:49 Dose: 0.5 mg Calcium Carbonate (Caltrate) 600 mg PO DAILY [facility] Last Admin: 01/20/17 10:00 Dose: 600 mg Docusate Sodium (Colace) 100 mg PO TID [facility] Last Admin: 01/20/17 10:00 Dose: 100 mg Ergocalciferol (Drisdol 50,000 Intl Units Cap) 1 cap PO Q7D [facility] Last Admin: 01/19/17 14:25 Dose: 1 cap Fentanyl (Duragesic) 1 patch TD Q72H [facility] Last Admin: 01/17/17 22:22 Dose: 1 patch Fentanyl (Duragesic) 1 patch TD Q72H [facility] Last Admin: 01/18/17 13:01 Dose: Not Given Guaifenesin/Codeine Phosphate (Robitussin W/Codeine) 5 ml PO Q6H [facility] Last Admin: 01/20/17 05:28 Dose: 5 ml Heparin Sodium (Porcine) (Heparin) 5,000 units SC Q12 [facility] PRN Reason: Protocol Last Admin: 01/20/17 10:00 Dose: 5,000 units Aztreonam (Azactam 1 Gm) 100 mls @ 100 mls/hr IVPB Q12 [facility] PRN Reason: Protocol Stop: 01/22/17 10:01 Last Admin: 01/19/17 21:11 Dose: 100 mls/hr Iron Sucrose 200 mg/ Sodium (Chloride) 110 mls @ 110 mls/hr IVPB DAILY [facility] Stop: 01/21/17 10:01 Last Admin: 01/19/17 10:19 Dose: 110 mls/hr Doxycycline Hyclate 100 mg/ (Sodium Chloride) 100 mls @ 100 mls/hr IVPB Q12 [facility] PRN Reason: Protocol Last Admin: 01/20/17 09:59 Dose: 100 mls/hr Hydromorphone HCl (Dilaudid-Hp 1 Mg/Ml Scalemaker) 25 mls @ 0.1 mls/hr IV PRN PRN; Protocol 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 Megestrol Acetate (Megace) 200 mg PO DAILY [facility] Last Admin: 01/20/17 10:00 Dose: 200 mg Methylprednisolone (Solu-Medrol) 40 mg IVP Q12 [facility] Last Admin: 01/20/17 09:59 Dose: 40 mg Metoprolol Tartrate (Lopressor) 25 mg PO BID [facility] Last Admin: 01/20/17 10:00 Dose: 25 mg Ondansetron HCl (Zofran Inj) 4 mg IVP Q4H PRN PRN Reason: Nausea/Vomiting Last Admin: 01/19/17 18:02 Dose: 4 mg Oxycodone HCl (Oxycodone Immediate Release Tab) 10 mg PO Q4H PRN PRN Reason: Pain, severe (8-10) Polyethylene Glycol (Miralax) 17 gm PO DAILY PRN PRN Reason: Constipation Last Admin: 01/19/17 14:36 Dose: 17 gm Pregabalin (Lyrica) 25 mg PO BID [facility] Last Admin: 01/20/17 10:00 Dose: 25 mg Tiotropium [place] (Spiriva) 18 mcg IH DAILY [facility] Last Admin: 01/20/17 10:00 Dose: 18 mcg - Labs Labs: 01/20/17 06:15 01/20/17 06:15 PT 12.2 Seconds (9.9-11.8) H 01/14/17 16:03 INR 1.13 (0.93-1.08) H 01/14/17 16:03 APTT 39.2 Seconds (23.7-30.8) H 01/14/17 16:03 - Constitutional Appears: Non-toxic, No Acute Distress - Head Exam Head Exam: NORMAL INSPECTION - ENT Exam ENT Exam: Mucous Membranes Moist - Neck Exam Neck Exam: absent: Meningismus - Respiratory Exam Respiratory Exam: Decreased Breath Sounds - Cardiovascular Exam Cardiovascular Exam: +S1, +S2 - GI/Abdominal Exam GI & Abdominal Exam: Soft. absent: Tenderness Assessment and Plan - Assessment and Plan (Free Text) Plan: Assessment Hematuria and urinary frequency, probably UTI with Proteus lung infiltrates on CT chest R/O pneumonia Right lung mass, which is poorly-differentiated non-small cell lung cancer on pathology S/P biopsy 10/16/2016 on radiotherapy and chemotherapy COPD Plan on Azactam and intermittent Vanco IV day 4 for pneumonia - PCT is elevated but patient has renal failure - blood cx are negative; PSA is normal - patient can be switched to PO Levaquin and Doxycycline to complete another 5-7 days will continue to monitor clinically follow up biopsy results of the kidney suggest Urology evaluation
--- NOTE | 2017-01-20 16:10 | CP.PCM.PN ---
<Justice Nelson - Last Filed: 01/20/17 16:20> Subjective - Date & Time of Evaluation Date of Evaluation: 01/20/17 Time of Evaluation: 10:10 - Subjective Subjective: Heme/onc note for Dr Leary: Pt seen and examined at bedside. No acute events overnight. Pt c/o RUE pain and weakness. States hematuria has resolved. Denies any f/c, n/v, cp, abd pain, bm changes. Objective - Vital Signs/Intake and Output Vital Signs (last 24 hours): Temp Pulse Resp BP Pulse Ox 98.4 F 94 H 18 141/81 98 01/20/17 05:30 01/20/17 05:30 01/20/17 05:30 01/20/17 05:30 01/20/17 05:30 Intake and Output: 01/20/17 01/20/17 06:59 18:59 Intake Total 300 Output Total 500 Balance -200 - Medications Medications: Current Medications Acetaminophen (Tylenol 325mg Tab) 650 mg PO Q4H PRN PRN Reason: Fever >100.5 F Albuterol/Ipratropium (Duoneb 3 Mg/0.5 Mg (3 Ml) Ud) 3 ml IH Q2H PRN PRN Reason: Shortness of Breath Last Admin: 01/18/17 05:57 Dose: 3 ml Amlodipine Besylate (Norvasc) 5 mg PO DAILY [facility] Last Admin: 01/20/17 10:00 Dose: 5 mg Arformoterol Tartrate (Brovana) 15 mcg IH [id number] [facility] Last Admin: 01/20/17 08:48 Dose: 15 mcg Benzonatate (Tessalon Perles) 100 mg PO TID [facility] Last Admin: 01/20/17 14:42 Dose: 100 mg Budesonide (Pulmicort Respules) 0.5 mg IH BIDRESP [facility] Last Admin: 01/20/17 08:49 Dose: 0.5 mg Calcium Carbonate (Caltrate) 600 mg PO DAILY [facility] Last Admin: 01/20/17 10:00 Dose: 600 mg Docusate Sodium (Colace) 100 mg PO TID [facility] Last Admin: 01/20/17 14:42 Dose: 100 mg Doxercalciferol (Hectorol) 0.5 mcg PO DAILY [facility] Doxycycline Hyclate (Doryx) 100 mg PO Q12 [facility] PRN Reason: Protocol Stop: 01/27/17 22:01 Ergocalciferol (Drisdol 50,000 Intl Units Cap) 1 cap PO Q7D [facility] Last Admin: 01/19/17 14:25 Dose: 1 cap Fentanyl (Duragesic) 1 patch TD Q72H [facility] Last Admin: 01/17/17 22:22 Dose: 1 patch Fentanyl (Duragesic) 1 patch TD Q72H [facility] Last Admin: 01/18/17 13:01 Dose: Not Given Guaifenesin/Codeine Phosphate (Robitussin W/Codeine) 5 ml PO Q6H [facility] Last Admin: 01/20/17 05:28 Dose: 5 ml Heparin Sodium (Porcine) (Heparin) 5,000 units SC Q12 [facility] PRN Reason: Protocol Last Admin: 01/20/17 10:00 Dose: 5,000 units Iron Sucrose 200 mg/ Sodium (Chloride) 110 mls @ 110 mls/hr IVPB DAILY [facility] Stop: 01/21/17 10:01 Last Admin: 01/20/17 14:08 Dose: 110 mls/hr Hydromorphone HCl (Dilaudid-Hp 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/Ml Pre School Teacher) 25 mls @ 0.1 mls/hr IV PRN PRN; Protocol 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 Sodium Chloride (Sodium Chloride 0.9%) 1,000 mls @ 70 mls/hr IV .[id number] [facility] Levofloxacin (Levaquin) 500 mg PO MWF [facility] Stop: 01/29/17 10:01 Megestrol Acetate (Megace) 200 mg PO DAILY [facility] Last Admin: 01/20/17 10:00 Dose: 200 mg Methylprednisolone (Solu-Medrol) 40 mg IVP Q12 [facility] Last Admin: 01/20/17 09:59 Dose: 40 mg Metoprolol Tartrate (Lopressor) 25 mg PO BID [facility] Last Admin: 01/20/17 10:00 Dose: 25 mg Ondansetron HCl (Zofran Inj) 4 mg IVP Q4H PRN PRN Reason: Nausea/Vomiting Last Admin: 01/19/17 18:02 Dose: 4 mg Oxycodone HCl (Oxycodone Immediate Release Tab) 10 mg PO Q4H PRN PRN Reason: Pain, severe (8-10) Polyethylene Glycol (Miralax) 17 gm PO DAILY PRN PRN Reason: Constipation Last Admin: 01/19/17 14:36 Dose: 17 gm Pregabalin (Lyrica) 25 mg PO BID [facility] Last Admin: 01/20/17 10:00 Dose: 25 mg Tiotropium [place] (Spiriva) 18 mcg IH DAILY [facility] Last Admin: 01/20/17 10:00 Dose: 18 mcg - Labs Labs: 01/20/17 06:15 01/20/17 06:15 PT 12.2 Seconds (9.9-11.8) H 01/14/17 16:03 INR 1.13 (0.93-1.08) H 01/14/17 16:03 APTT 39.2 Seconds (23.7-30.8) H 01/14/17 16:03 - Constitutional Appears: No Acute Distress - Head Exam Head Exam: NORMAL INSPECTION - Eye Exam Eye Exam: EOMI, PERRL - ENT Exam ENT Exam: Mucous Membranes Moist - Neck Exam Neck Exam: Full ROM - Respiratory Exam Respiratory Exam: Clear to Ausculation Bilateral. absent: Rales, Rhonchi, Wheezes - Cardiovascular Exam Cardiovascular Exam: RRR, +S1, +S2 - GI/Abdominal Exam GI & Abdominal Exam: Soft. 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 s/p kiney biopsy. Complicated by pneumonia on abx. 1. AC with Hematuria and uti - Cr 3.6 --> 3.0 this am - s/p Kidney biopsy f/u pathology - ATN from chemo - Possible but unlikely - Bladder & renal US was mainly unremarkable - Nephrology consulted for recs - start [place] 50,000; avoid nephrotoxic drugs - ID consulted -cont Aztreonam 2. Sob - possible pneumonia - CT chest shows some L sided multifocal infiltrate and possible pneumonia - Pulm consulted for recs - Robitussin with codeine prn changed to scheduled - ID consulted regarding possible pneumonia - procal elevated, vanc intermittent , and aztreonam 3. 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 Hx of stage 4 non-small cell lung ca mets to thoracic spine - On chemo - carboplatin and pemetrexed - Pain control 5.Anemia - Hb of 8.4 -Type and cross - Transfuse 1 unit PRBC Case and plan was reviewed and discussed with Dr Leary <Lizzie Leary P - Last Filed: 01/25/17 18:34> Objective - Vital Signs/Intake and Output Vital Signs (last 24 hours): Temp Pulse Resp BP Pulse Ox 98.6 F 80 20 144/94 H 95 01/21/17 16:00 01/21/17 17:24 01/21/17 16:00 01/21/17 18:58 01/21/17 16:00 - Labs Labs: 01/21/17 11:05 01/21/17 11:05 PT 12.2 Seconds (9.9-11.8) H 01/14/17 16:03 INR 1.13 (0.93-1.08) H 01/14/17 16:03 APTT 39.2 Seconds (23.7-30.8) H 01/14/17 16:03 Attending/Attestation - Attestation I have personally seen and examined this patient.: Yes I have fully participated in the care of the patient.: Yes I have reviewed all pertinent clinical information, including history, physical exam and plan: Yes
--- NOTE | 2017-01-20 16:23 | PN ---
DATE: 01/20/2017 LOCATION: Room 574, bed 2. REASON FOR CONSULTATION: Chest pain secondary to tumor, lung CA, acute kidney injury, hematuria. SUBJECTIVE: The patient still has isolated chest pain localized area with local tenderness, but breathing stable. Denies palpitation. PHYSICAL EXAMINATION: VITAL SIGNS: Blood pressure 141/81, earlier pressure was 136/85, respirations 18, pulse 94, and temperature 98.4. HEENT: Head is normocephalic. Eyes: Pupils normal. Conjunctivae slightly pale. NECK: JVP low, carotids equal. Thorax, AP diameter normal. CHEST: Tenderness on a localized part on the right mid chest at the area of the tumor. LUNGS: No significant rales. CARDIOVASCULAR: S1 and S2. ABDOMEN: Soft, nontender. No organomegaly. Bowel sound normal. EXTREMITIES: No clubbing. No cyanosis. LABORATORY DATA: WBC 13.6, hemoglobin 8.4, hematocrit 25.9, platelets 73, which is low. Sodium 140, potassium 4.0, BUN 55, and creatinine 3.0. AST and ALT normal. Total protein 5.4, albumin 2.7, both are low. Calcium is 6.8. DIAGNOSES: Chest pain, musculoskeletal, probably related to underlying carcinoma of the lung with possibly chest wall, acute kidney injury, thrombocytopenia, hematuria, protein-calorie malnutrition. Echo, [id number] mitral regurge, [id number] tricuspid regurge, right ventricular systolic pressure of 40 mmHg, mild elevation of pulmonary hypertension, normal left ventricular function, ejection fraction 55%. RECOMMENDATION: We will continue the patient on calcium carbonate 600 mg p.o. daily, doxycycline hyclate 100 mg p.o. q. 12 hours, DuoNeb hand nebulizer therapy, fentanyl patch, heparin 5000 units subcutaneous q. 12 hours, IV hydromorphone p.r.n., iron sucrose 200 mg, sodium chloride 100 mL IV piggyback daily, Levaquin 500 mg p.o. Friday, Friday and Friday, metoprolol 25 mg b.i.d., Lyrica 25 mg b.i.d., Megace 200 mg p.o. daily, amlodipine 5 mg daily, methylprednisolone 40 mg q. 12 hours. We will continue present therapy and we will follow. Elisabet Willams MD [facility] # [id number]
--- NOTE | 2017-01-20 17:39 | PN ---
DATE: 01/20/2017 SUBJECTIVE: The patient is seen lying in bed. He is awake, he is alert, he is comfortable. He denies any pain. He denies any shortness of breath. PHYSICAL EXAMINATION: GENERAL: A middle-aged male, sitting in chair. VITAL SIGNS: Blood pressure 141/81, heart rate 94, respiratory rate 18, temperature 98.4. HEENT: Normocephalic, atraumatic. NECK: Supple, no JVD. LUNGS: Bilateral equal air entry, no rales. CARDIAC: S1, S2, regular rate and rhythm, no murmur, no rub. ABDOMEN: Distended, soft, nontender, bowel sounds present. EXTREMITIES: No lower extremity edema. INTAKE AND OUTPUT: 900/500. LABORATORY DATA: WBC 13.6, hemoglobin 8.4, hematocrit 26, platelets 73. Sodium 140, potassium 4.0, chloride 109, CO2 of 19, BUN 55, creatinine 3.0, glucose 129, calcium 6.8, albumin 2.7, corrected calcium is 7.7. Urine culture, Proteus. CURRENT MEDICATIONS: Brovana, Caltrate, Colace, Dilaudid, doxycycline, Drisdol, DuoNeb, fentanyl, Duragesic, heparin, iron sucrose 200 mg daily, Levaquin, Lopressor 25 b.i.d., pregabalin, Megace, MiraLAX, amlodipine 5 mg daily, Pulmicort, Solu-Medrol, Spiriva. ASSESSMENT: 1. Acute kidney injury in the setting of nephrotoxic chemotherapy, Proteus UTI, pneumonia. 2. Workup consistent with acute tubular necrosis. 3. Stage IV lung cancer with bone metastasis. 4. Severe hypocalcemia with low intact PTH, consistent with primary hypoparathyroidism. 5. Low vitamin D. 6. Anemia. 7. No evidence of acute interstitial nephritis. 8. Status post kidney biopsy. PLAN 1. Renal function seems to be improving. 2. Followup kidney biopsy. 3. Continue calcium. 4. Continue vitamin D. 5. Start activated vitamin D, Hectorol. 6. Lasix 40 mg IV push x1 dose. 7. Monitor urine output closely. 8. Avoid nephrotoxins. 9. Daily labs. 10. Continue antibiotics for pneumonia. Brenda Meléndez MD
[2017-01-20] MEDS: Sodium Chloride 0.9% 1,000 ML IV SCH (20:10)
[2017-01-20] MEDS: Aztreonam 1 Gm in NS 100mL 100 ML IVPB SCH (20:16)
[2017-01-21] MEDS: guaiFENesin-Codeine 100-10mg/5ml Syrup (5 ml) UD PO SCH ×3 (06:07→17:31)
--- NOTE | 2017-01-21 06:17 | PN ---
DATE: 01/20/2017 REFERRING PHYSICIAN: Dr. Fermin. 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 Pain little better, still has some cough. No vomiting, no hematuria, no diarrhea. No leg pain or leg swelling. PHYSICAL EXAMINATION: GENERAL: No acute distress. VITAL SIGNS: Temperature is 98, heart rate is 78, respiratory rate is 18, blood pressure 163/88, and pulse ox 96% on 3 L on nasal cannula. HEENT: Moist mucous membranes. Small oral cavity. LUNGS: Few scattered rhonchi. HEART: S1 and S2. ABDOMEN: Soft and nontender. No organomegaly. EXTREMITIES: No edema. NEUROLOGICAL: Awake and alert. Follows simple command. MEDICATIONS: He is on Brovana 15 mcg inhaled twice a day, calcium carbonate 600 mg daily, Colace 100 mg 3 times a day, Dilaudid GROUNDS MAINTENANCE SUPERVISOR pump, doxycycline 100 mg twice a day, vitamin D 50,000 units subcu q. 7 day, DuoNeb q. 12 hour p.r.n., Duragesic 1 patch q. 72 hours, heparin 5000 units subcu q. 12 hours, iron sucrose 200 mg daily. Levaquin 500 mg Friday, Friday and Friday; metoprolol tartarate 25 mg twice a day; Lyrica 25 mg twice a day; Megace 200 mg daily; MiraLax 17 g daily; Norvasc 5 mg daily; oxycodone immediate release 10 mg q. 4 hours p.r.n.; budesonide 0.5 mg inhaled twice a day; Robitussin With Codeine 5 mL q. 6 hours; IV fluid normal saline 70 mL/hour; Solu-medrol 40 mg q. 12 hours; Spiriva 18 mcg inhaled daily; Tessalon Perles 100 mg 3 times a day; Tylenol p.r.n. basis; and Zofran p.r.n. basis. LABORATORY DATA: Shows hemoglobin 8.4, hematocrit 25.9, WBC 13.6, and platelet is 73. Sodium 140, potassium 4.0, chloride 109, bicarbonate 19, BUN 55, creatinine 3.0, calcium is 6.8. AST 35, ALT 33, alk phos is 86, and albumin is 2.7. Urine culture has Proteus mirabilis. IMPRESSION AND PLAN: Metastatic lung cancer, chronic obstructive lung disease, pneumonia, and urinary tract infection. We will continue antibiotics, bronchodilator, gastric prophylaxis, deep vein thrombosis prophylaxis, pain management, and IV fluid. Spoke to family at bedside. Continue supportive care. We will follow with you. Elisabet Pelaez MD
[2017-01-21] MEDS: Arformoterol 15 mcg/2 ml Inh Sol IH SCH (07:52)
[2017-01-21] MEDS: Budesonide 0.5 mg/2 ml Inhal Susp UD IH SCH (07:52)
--- NOTE | 2017-01-21 09:50 | CP.PCM.CON ---
History of Present Illness - History of Present Illness History of Present Illness: Palliative consult requested by Dr. Michael Fermin Reason: Goals of care HPI: 56 year old male with history of lung cancer who presented with yolie hematuria after receiving chemotherapy. 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 Social History: Former heavy smoker, no alcohol or drug use. Lives alone but has tyhree sisters, two of who live close and are supportive. Family History: Sister with uterine cancer. Advance Care Planning: The patient does not have an Advance Directive. Review of Systems: 12 point review of systems as per HPI, otherwise negative. Past Patient History - Infectious Disease Hx of Infectious Diseases: None - Past Social History Smoking Status: Current Some Days Smoker - CARDIAC Hx Cardiac Disorders: No - PULMONARY Hx Chronic Obstructive Pulmonary Disease (COPD): Yes - NEUROLOGICAL Hx Neurological Disorder: No - HEENT Hx HEENT Problems: No - RENAL Hx Chronic Kidney Disease: No - ENDOCRINE/METABOLIC Hx Endocrine Disorders: No - HEMATOLOGICAL/ONCOLOGICAL Hx Blood Disorders: Yes - INTEGUMENTARY Hx Dermatological Problems: No Other/Comment: BILATERAL PITTNG EDEMA T0 FOOT +2 MORE TO RIGHT. - MUSCULOSKELETAL/RHEUMATOLOGICAL Hx Musculoskeletal Disorders: Yes Hx Falls: No Hx Unsteady Gait: Yes - GASTROINTESTINAL Hx Gastrointestinal Disorders: No - GENITOURINARY/GYNECOLOGICAL Hx Genitourinary Disorders: Yes Hx Hematuria: Yes (01-14-17) - PSYCHIATRIC Hx Psychophysiologic Disorder: Yes Hx Depression: Yes Hx Substance Use: No - SURGICAL HISTORY Hx Surgeries: Yes Hx Musculoskeletal Surgery: Yes (plate placed in back) Hx Orthopedic Surgery: Yes (R shoulder) - ANESTHESIA Hx Anesthesia: Yes Meds Allergies/Adverse Reactions: Allergies Allergy/AdvReac Type Severity Reaction Status Date / Time Penicillins Allergy ANAPHYLAXIS Verified 01/14/17 20:53 - Medications Medications: Current Medications Acetaminophen (Tylenol 325mg Tab) 650 mg PO Q4H PRN PRN Reason: Fever >100.5 F Albuterol/Ipratropium (Duoneb 3 Mg/0.5 Mg (3 Ml) Ud) 3 ml IH Q2H PRN PRN Reason: Shortness of Breath Last Admin: 01/18/17 05:57 Dose: 3 ml Amlodipine Besylate (Norvasc) 5 mg PO DAILY [facility] Last Admin: 01/20/17 10:00 Dose: 5 mg Arformoterol Tartrate (Brovana) 15 mcg IH [id number] [facility] Last Admin: 01/21/17 07:52 Dose: 15 mcg Benzonatate (Tessalon Perles) 100 mg PO TID [facility] Last Admin: 01/20/17 19:06 Dose: 100 mg Budesonide (Pulmicort Respules) 0.5 mg IH BIDRESP [facility] Last Admin: 01/21/17 07:52 Dose: 0.5 mg Calcium Carbonate (Caltrate) 600 mg PO BID [facility] Docusate Sodium (Colace) 100 mg PO TID [facility] Last Admin: 01/20/17 19:05 Dose: 100 mg Doxercalciferol (Hectorol) 0.5 mcg PO DAILY [facility] Last Admin: 01/20/17 20:11 Dose: 0.5 mcg Doxycycline Hyclate (Doryx) 100 mg PO Q12 [facility] PRN Reason: Protocol Stop: 01/27/17 22:01 Last Admin: 01/20/17 21:25 Dose: 100 mg Ergocalciferol (Drisdol 50,000 Intl Units Cap) 1 cap PO Q7D [facility] Last Admin: 01/19/17 14:25 Dose: 1 cap Fentanyl (Duragesic) 1 patch TD Q72H [facility] Last Admin: 01/20/17 21:24 Dose: 1 patch Fentanyl (Duragesic) 1 patch TD Q72H [facility] Last Admin: 01/18/17 13:01 Dose: Not Given Guaifenesin/Codeine Phosphate (Robitussin W/Codeine) 5 ml PO Q6H [facility] Last Admin: 01/21/17 06:07 Dose: 5 ml Heparin Sodium (Porcine) (Heparin) 5,000 units SC Q12 [facility] PRN Reason: Protocol Last Admin: 01/20/17 21:17 Dose: 5,000 units Iron Sucrose 200 mg/ Sodium (Chloride) 110 mls @ 110 mls/hr IVPB DAILY [facility] Stop: 01/21/17 10:01 Last Admin: 01/20/17 14:08 Dose: 110 mls/hr Hydromorphone HCl (Dilaudid-Hp 1 Mg/Ml Service Desk Manager) 25 mls @ 0.1 mls/hr IV PRN PRN; Protocol PRN 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: 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 Sodium Chloride (Sodium Chloride 0.9%) 1,000 mls @ 70 mls/hr IV .[id number] [facility] Last Admin: 01/20/17 20:10 Dose: 70 mls/hr Levofloxacin (Levaquin) 500 mg PO MWF [facility] Stop: 01/29/17 10:01 Megestrol Acetate (Megace) 200 mg PO DAILY [facility] Last Admin: 01/20/17 10:00 Dose: 200 mg Methylprednisolone (Solu-Medrol) 40 mg IVP Q12 [facility] Last Admin: 01/20/17 21:17 Dose: 40 mg Metoprolol Tartrate (Lopressor) 25 mg PO BID [facility] Last Admin: 01/20/17 19:06 Dose: 25 mg Ondansetron HCl (Zofran Inj) 4 mg IVP Q4H PRN PRN Reason: Nausea/Vomiting Last Admin: 01/19/17 18:02 Dose: 4 mg Oxycodone HCl (Oxycodone Immediate Release Tab) 10 mg PO Q4H PRN PRN Reason: Pain, severe (8-10) Polyethylene Glycol (Miralax) 17 gm PO DAILY PRN PRN Reason: Constipation Last Admin: 01/19/17 14:36 Dose: 17 gm Pregabalin (Lyrica) 25 mg PO BID [facility] Last Admin: 01/20/17 19:05 Dose: 25 mg Tiotropium [place] (Spiriva) 18 mcg IH DAILY [facility] Last Admin: 01/20/17 10:00 Dose: 18 mcg Physical Exam - Constitutional Appears: Cachectic, Chronically Ill - Head Exam Head Exam: NORMAL INSPECTION - Eye Exam Eye Exam: Normal appearance, PERRL - ENT Exam ENT Exam: Mucous Membranes Moist, Normal Oropharynx - Neck Exam Neck exam: Positive for: Normal Inspection - Respiratory Exam Respiratory Exam: Decreased Breath Sounds, NORMAL BREATHING PATTERN - Cardiovascular Exam Cardiovascular Exam: REGULAR RHYTHM, +S1, +S2 - GI/Abdominal Exam GI & Abdominal Exam: Normal Bowel Sounds, Soft - Extremities Exam Extremities exam: Positive for: full ROM, normal inspection - Back Exam Back exam: NORMAL INSPECTION - Neurological Exam Neurological exam: Alert, Oriented x3 - Skin Skin Exam: Dry, Warm - Additional Findings Additional findings: Palliative performance scale rating 50% Results - Vital Signs Recent Vital Signs: Last Vital Signs Temp 98.3 F 01/21/17 08:02 Pulse 70 01/21/17 08:02 Resp 18 01/21/17 08:02 BP 154/92 H 01/21/17 08:02 Pulse Ox 97 01/21/17 08:02 - Labs Result Diagrams: 01/21/17 11:05 01/21/17 11:05 Labs: Laboratory Results - last 24 hr 01/20/17 01/20/17 10:57 14:27 Manual Plt Count 85 L Blood Type A POSITIVE Antibody Screen Negative Crossmatch See Detail BBK History Checked Patient has bt Assessment & Plan - Assessment and Plan (Free Text) Assessment: 56 year old male with lung cancer metastasis to bone/ with right brachial plexus impingement who was admitted with hematuria, anemia s/p transfusion, leukocytosis,UTI and intractable pain. The patient is alert, oriented. He speaks Romanian. His pain is controlled. He is receiving Dilaudid 0.1 continuos infusion. He is also receiving Fentanyl transdermal patches @ 150mcg and Oxycodone 10 mg IR as needed. The patient is known to me from previous admission. During that time we discussed goals of care/advance care planning and resuscitation status. The patient did not commit to an advance care plan stating that he wanted to have further discussion with his sisters. His sister is at the beside today. Goals of care discussion ensued. The patient states he wants to continue cancer treatments for as long as he is able to do so. He does not want hospice care. Extensive discussion regarding resuscitation wishes /advance care planning. Benefits and burdens of CPR/intubation explained. The patient understands the ramifications of resuscitation efforts and wants to remain a full code status. Time spent kin goals of care and advance care planning discussion , 30 minutes Plan: Palliative support Advance care planning
--- NOTE | 2017-01-21 10:32 | CP.PCM.PN ---
Subjective - Date & Time of Evaluation Date of Evaluation: 01/20/17 Time of Evaluation: 13:30 - Subjective Subjective: pain neck back area seem better with meds, urine is clear, on antibiotics for proteus,,pnemonia breathing better look less dyspnic, Objective - Vital Signs/Intake and Output Vital Signs (last 24 hours): Temp Pulse Resp BP Pulse Ox 98.3 F 70 18 154/92 H 97 01/21/17 08:02 01/21/17 08:02 01/21/17 08:02 01/21/17 08:02 01/21/17 08:02 Intake and Output: 01/21/17 01/21/17 06:59 18:59 Intake Total 1165 Output Total 1700 Balance -535 - Medications Medications: Current Medications Acetaminophen (Tylenol 325mg Tab) 650 mg PO Q4H PRN PRN Reason: Fever >100.5 F Albuterol/Ipratropium (Duoneb 3 Mg/0.5 Mg (3 Ml) Ud) 3 ml IH Q2H PRN PRN Reason: Shortness of Breath Last Admin: 01/18/17 05:57 Dose: 3 ml Amlodipine Besylate (Norvasc) 5 mg PO DAILY [facility] BEDS AT [facility] Last Admin: 01/20/17 10:00 Dose: 5 mg Arformoterol Tartrate (Brovana) 15 mcg IH [id number] [facility] 234 BEDS AT THE [facility] Last Admin: 01/21/17 07:52 Dose: 15 mcg Benzonatate (Tessalon Perles) 100 mg PO TID [facility] 234 BEDS AT THE [facility] Last Admin: 01/20/17 19:06 Dose: 100 mg Budesonide (Pulmicort Respules) 0.5 mg IH BIDRESP [facility]CLUDE 234 BEDS AT THE [facility] Last Admin: 01/21/17 07:52 Dose: 0.5 mg Calcium Carbonate (Caltrate) 600 mg PO BID [facility] Docusate Sodium (Colace) 100 mg PO TID [facility] 234 BEDS AT THE [facility] Last Admin: 01/20/17 19:05 Dose: 100 mg Doxercalciferol (Hectorol) 0.5 mcg PO DAILY [facility]CLUDE 234 BEDS AT THE [facility] Last Admin: 01/20/17 20:11 Dose: 0.5 mcg Doxycycline Hyclate (Doryx) 100 mg PO Q12 [facility] PRN Reason: Protocol Stop: 01/27/17 22:01 Last Admin: 01/20/17 21:25 Dose: 100 mg Ergocalciferol (Drisdol 50,000 Intl Units Cap) 1 cap PO Q7D [facility] 234 BEDS AT [facility] Last Admin: 01/19/17 14:25 Dose: 1 cap Fentanyl (Duragesic) 1 patch TD Q72H [facility] 234 BEDS AT [facility] Last Admin: 01/20/17 21:24 Dose: 1 patch Fentanyl (Duragesic) 1 patch TD Q72H [facility] 234 BEDS AT [facility] Last Admin: 01/18/17 13:01 Dose: Not Given Guaifenesin/Codeine Phosphate (Robitussin W/Codeine) 5 ml PO Q6H [facility] 234 BEDS AT [facility] Last Admin: 01/21/17 06:07 Dose: 5 ml Heparin Sodium (Porcine) (Heparin) 5,000 units SC Q12 [facility] 234 BEDS AT [facility] PRN Reason: Protocol Last Admin: 01/20/17 21:17 Dose: 5,000 units Hydromorphone HCl (Dilaudid-Hp 1 Mg/Ml Rust Proofer) 25 mls @ 0.1 mls/hr IV PRN PRN; Protocol PRN Reason: HAZ TECH PER MD ORDER Sodium Chloride (Sodium Chloride 0.9%) 1,000 mls @ 70 mls/hr IV .[id number] [facility] 234 BEDS AT THE [facility] Last Admin: 01/20/17 20:10 Dose: 70 mls/hr Levofloxacin (Levaquin) 500 mg PO MWF [facility] 234 BEDS AT [facility] Stop: 01/29/17 10:01 Megestrol Acetate (Megace) 200 mg PO DAILY [facility] 234 BEDS AT [facility] Last Admin: 01/20/17 10:00 Dose: 200 mg Methylprednisolone (Solu-Medrol) 40 mg IVP Q12 [facility] 234 B[facility]S AT [facility] Last Admin: 01/20/17 21:17 Dose: 40 mg Metoprolol Tartrate (Lopressor) 25 mg PO BID [facility] 234 B[facility]S AT [facility] Last Admin: 01/20/17 19:06 Dose: 25 mg Ondansetron HCl (Zofran Inj) 4 mg IVP Q4H PRN PRN Reason: Nausea/Vomiting Last Admin: 01/19/17 18:02 Dose: 4 mg Oxycodone HCl (Oxycodone Immediate Release Tab) 10 mg PO Q4H PRN PRN Reason: Pain, severe (8-10) Polyethylene Glycol (Miralax) 17 gm PO DAILY PRN PRN Reason: Constipation Last Admin: 01/19/17 14:36 Dose: 17 gm Pregabalin (Lyrica) 25 mg PO BID [facility] 234 BEDS AT [facility] Last Admin: 01/20/17 19:05 Dose: 25 mg Tiotropium [place] (Spiriva) 18 mcg IH DAILY [facility] Last Admin: 01/20/17 10:00 Dose: 18 mcg - Labs Labs: 01/20/17 06:15 01/20/17 06:15 PT 12.2 Seconds (9.9-11.8) H 01/14/17 16:03 INR 1.13 (0.93-1.08) H 01/14/17 16:03 APTT 39.2 Seconds (23.7-30.8) H 01/14/17 16:03 - Constitutional Appears: Non-toxic, Toxic, No Acute Distress - Head Exam Head Exam: ATRAUMATIC, NORMAL INSPECTION, NORMOCEPHALIC - Eye Exam Pupil Exam: NORMAL ACCOMODATION, PERRL - ENT Exam ENT Exam: Mucous Membranes Moist, Normal Exam - Neck Exam Neck Exam: Full ROM - Respiratory Exam Respiratory Exam: Decreased Breath Sounds, Prolonged Expiratory Phase, Wheezes, NORMAL BREATHING PATTERN - Cardiovascular Exam Cardiovascular Exam: Tachycardia, REGULAR RHYTHM - GI/Abdominal Exam GI & Abdominal Exam: Normal Bowel Sounds - Rectal Exam Rectal Exam: Deferred - Exam Exam: NORMAL INSPECTION External exam: NORMAL EXTERNAL EXAM - Back Exam Back Exam: NORMAL INSPECTION - Neurological Exam Neurological Exam: Normal Gait, Oriented x3, Reflexes Normal Neuro motor strength exam: Left Upper Extremity: 5, Right Upper Extremity: 5, Left Lower Extremity: 5, Right Lower Extremity: 5 - Psychiatric Exam Psychiatric exam: Anxious, Normal Affect, Normal Mood - Skin Skin Exam: Normal Color Assessment and Plan (1) Edema of both legs Status: Acute (2) Hematuria Status: Acute (3) Intractable pain Status: Acute (4) Lung cancer Status: Acute (5) Neck pain Status: Acute - Assessment and Plan (Free Text) Plan: continue current treatment, steroids tapering, , pain controll. palliative care.discussed with patient ,kidney getting better,patients wants to go home,
--- NOTE | 2017-01-21 10:59 | CP.PCM.DIS ---
Provider - Provider Date of Admission: 01/17/17 11:30 Attending physician: Gary Fermin MD Primary care physician: NO PRIMARY CARE PROVIDER Consults: id consult, pulmonary, oncology,renal consult urology, palliative care consult Time Spent in preparation of Discharge (in minutes): 30 Diagnosis - Discharge Diagnosis (1) Edema of both legs Status: Acute (2) Hematuria Status: Acute (3) Intractable pain Status: Acute (4) Lung cancer Status: Acute (5) Neck pain Status: Acute (6) Urinary tract infection Status: Acute (7) Community acquired bacterial pneumonia Status: Acute Hospital Course - Lab Results Lab Results: Most Recent Lab Values WBC 13.6 10^3/ul (4.5-11.0) H 01/20/17 06:15 RBC 2.88 10^6/uL (3.5-6.1) L 01/20/17 06:15 Hgb 8.4 g/dL (14.0-18.0) L 01/20/17 06:15 Hct 25.9 % (42.0-52.0) L 01/20/17 06:15 MCV 89.9 fl (80.0-105.0) 01/20/17 06:15 MCH 29.2 pg (25.0-35.0) 01/20/17 06:15 MCHC 32.4 g/dl (31.0-37.0) 01/20/17 06:15 RDW 16.2 % (11.5-14.5) H 01/20/17 06:15 Plt Count 73 10^3/uL (120.0-450.0) L 01/20/17 06:15 Manual Plt Count 85 K/mm3 (120-450) L 01/20/17 10:57 MPV 9.7 fl (7.0-11.0) 01/20/17 06:15 Gran % 88.9 % (50.0-68.0) H 01/20/17 06:15 Lymph % (Auto) 4.4 % (22.0-35.0) L 01/20/17 06:15 [place] % (Auto) 6.7 % (1.0-6.0) H 01/20/17 06:15 Eos % (Auto) 0.0 % (1.5-5.0) L 01/20/17 06:15 Baso % (Auto) 0.0 % (0.0-3.0) 01/20/17 06:15 Gran # 12.12 (1.4-6.5) H 01/20/17 06:15 Lymph # 0.6 (1.2-3.4) L 01/20/17 06:15 [place] # 0.9 (0.1-0.6) H 01/20/17 06:15 Eos # 0.0 (0.0-0.7) 01/20/17 06:15 Baso # 0.00 K/mm3 (0.0-2.0) 01/20/17 06:15 Neutrophils % (Manual) 93 % (50.0-70.0) H 01/18/17 13:10 Band Neutrophils % 1 % (0-2) 01/18/17 13:10 Lymphocytes % (Manual) 2 % (22.0-35.0) L 01/18/17 13:10 Monocytes % (Manual) 4 % (1.0-6.0) 01/18/17 13:10 Large Platelets Present 01/18/17 13:10 ESR 135 mm/hr (0.00-15.0) H 01/17/17 07:00 PT 12.2 Seconds (9.9-11.8) H 01/14/17 16:03 INR 1.13 (0.93-1.08) H 01/14/17 16:03 APTT 39.2 Seconds (23.7-30.8) H 01/14/17 16:03 Sodium 140 mmol/L (132-148) 01/20/17 06:15 Potassium 4.0 mmol/L (3.6-5.0) 01/20/17 06:15 Chloride 109 mmol/L (98-107) H 01/20/17 06:15 Carbon Dioxide 19 mmol/L (21-33) L 01/20/17 06:15 Anion Gap 16 (10-20) 01/20/17 06:15 BUN 55 mg/dL (7-21) H 01/20/17 06:15 Creatinine 3.0 mg/dL (0.5-1.4) H 01/20/17 06:15 Est GFR ( Amer) 26 01/20/17 06:15 Est GFR (Non-Af Amer) 22 01/20/17 06:15 POC Glucose (mg/dL) 152 mg/dL (65-110) H 01/17/17 21:26 Random Glucose 129 mg/dL (70-110) H 01/20/17 06:15 Hemoglobin A1c 6.6 % (4.2-6.5) H 01/17/17 06:30 Calcium 6.8 mg/dL (8.4-10.5) L* 01/20/17 06:15 Phosphorus 6.0 mg/dL (2.5-4.5) H 01/17/17 06:30 Magnesium 1.8 mg/dL (1.7-2.2) 01/17/17 06:30 Iron 28 ug/dL (45-180) L 01/16/17 07:28 TIBC 151 ug/dL (261-462) L 01/16/17 07:28 % Saturation 18 % (20-55) L 01/16/17 07:28 Ferritin 747.0 ng/mL 01/15/17 12:15 Total Bilirubin 0.2 mg/dL (0.2-1.3) 01/20/17 06:15 AST 35 U/L (15-59) 01/20/17 06:15 ALT 33 U/L (7-56) 01/20/17 06:15 Alkaline Phosphatase 86 U/L (38-133) 01/20/17 06:15 Total Protein 5.4 g/dL (5.8-8.3) L 01/20/17 06:15 Albumin 2.7 g/dL (3.0-4.8) L 01/20/17 06:15 Globulin 2.7 gm/dL 01/20/17 06:15 Albumin/Globulin Ratio 1.0 (1.1-1.8) L 01/20/17 06:15 Triglycerides 110 mg/dL (35-160) 01/17/17 06:30 Cholesterol 120 mg/dL (130-200) L 01/17/17 06:30 LDL Cholesterol Direct 86 mg/dL (0-129) 01/17/17 06:30 HDL Cholesterol 20 mg/dL (29-60) L 01/17/17 06:30 Prostate Specific Ag 0.238 ng/ml (0.00-2.5) 01/16/17 07:28 25-OH Vitamin D Total 16.2 NG/ML (30.0-100.0) L 01/16/17 07:28 Folate > 20.0 ng/mL 01/15/17 12:15 Procalcitonin 0.98 NG/ML (0.19-0.49) H 01/16/17 07:30 TSH 3rd Generation 0.97 mIU/mL (0.46-4.68) 01/17/17 06:30 PTH Intact Whole Molec 25 pg/mL (14-64) 01/16/17 07:28 Urine Color Light red (YELLOW) 01/14/17 17:20 Urine Appearance Cloudy (CLEAR) 01/14/17 17:20 Urine pH 7.5 (4.7-8.0) 01/14/17 17:20 Ur Specific [place] 1.015 (1.005-1.035) 01/14/17 17:20 Urine Protein >=300 mg/dL (<30 mg/dL) H 01/14/17 17:20 Urine Glucose (UA) Negative mg/dL (NEGATIVE) 01/14/17 17:20 Urine Ketones Negative mg/dL (NEGATIVE) 01/14/17 17:20 Urine Blood Large (NEGATIVE) H 01/14/17 17:20 Urine Nitrate Negative (NEGATIVE) 01/14/17 17:20 Urine Bilirubin Small (NEGATIVE) H 01/14/17 17:20 Urine Urobilinogen 0.2 E.U./dL (<1 E.U./dL) 01/14/17 17:20 Ur Leukocyte Esterase Small Darcie/uL (NEGATIVE) H 01/14/17 17:20 Urine RBC Tntc /hpf (0-2) 01/14/17 17:20 Urine WBC 25 - 30 /hpf (0-6) 01/14/17 17:20 Urine Eosinophils Negative 01/20/17 05:45 Ur Random Creatinine 28 mg/dL 01/15/17 15:23 Ur Random Sodium 59 meq/L 01/15/17 15:23 Random Vancomycin 6.9 ug/mL (20.0-40.0) L 01/20/17 06:15 Rheumatoid Factor 11 IU/mL (<14) 01/17/17 07:00 ZO Screen Negative (Negative) 01/17/17 07:00 Complement C3 107.0 mg/dL (88.0-165.0) 01/17/17 07:00 Complement C4 25.7 mg/dL (14.0-44.0) 01/17/17 07:00 Blood Type A POSITIVE 01/20/17 14:27 Antibody Screen Negative 01/20/17 14:27 Crossmatch See Detail 01/20/17 14:27 BBK History Checked Patient has bt 01/20/17 14:27 - Hospital Course Hospital Course: feel and look better less wheez, less cough. renal function improving, urine is clear,patient wants to go home, Discharge Exam - Head Exam Head Exam: ATRAUMATIC, NORMAL INSPECTION, NORMOCEPHALIC - Eye Exam Eye Exam: EOMI, Normal appearance - ENT Exam ENT Exam: Mucous Membranes Moist - Neck Exam Neck exam: Tenderness - Respiratory Exam Respiratory Exam: Decreased Breath Sounds, Prolonged Expiratory Phase - Cardiovascular Exam Cardiovascular Exam: REGULAR RHYTHM - GI/Abdominal Exam GI & Abdominal Exam: Normal Bowel Sounds - Rectal Exam Rectal Exam: NORMAL INSPECTION - Extremities Exam Extremities exam: pedal edema - Back Exam Back exam: FULL ROM, NORMAL INSPECTION - Neurological Exam Neurological exam: Alert, CN II-XII Intact, Normal Gait, Oriented x3, Reflexes Normal - Psychiatric Exam Psychiatric exam: Normal Affect, Normal Mood - Skin Skin Exam: Intact, Normal Color Discharge Plan - Follow Up Plan Condition: FAIR Disposition: DISCHARGED TO HOME CARE Additional Instructions: pallitive care consult,will f/up at home Referrals: PCP,NO [Primary Care Provider] -
[2017-01-21] MEDS: MethylPREDNISolone 40 mg Vial IVP SCH (11:07)
[2017-01-21] MEDS: Megestrol Acetate 40 mg/ml Cup PO SCH (11:07)
[2017-01-21] MEDS: Tiotropium 18 mcg Cap For Inhalation IH SCH (11:08)
[2017-01-21 11:09] LABS: HEMATOCRIT 28.5 % (42.0-52.0); MEAN CELL VOLUME 89.6 fl (80.0-105.0); MEAN CORPUSCULAR HEMOGLOBIN 29.2 pg (25.0-35.0); MEAN CORPUSCULAR HGB CONC 32.6 g/dl (31.0-37.0); MEAN PLATELET VOLUME 10.6 fl (7.0-11.0); RED CELL DISTRIBUTION WIDTH 15.8 % (11.5-14.5); WHITE BLOOD COUNT 12.9 10^3/ul (4.5-11.0)
[2017-01-21 11:19] LABS: BILIRUBIN,TOTAL 0.4 mg/dL (0.2-1.3); POTASSIUM 3.6 mmol/L (3.6-5.0); TOTAL PROTEIN 5.5 g/dL (5.8-8.3)
[2017-01-21 11:20] LABS: CALCIUM 6.8 mg/dL (8.4-10.5)
[2017-01-21] MEDS ORDERED: Potassium Chloride 20 mEq ER Tab PO ONE (12:02)
--- NOTE | 2017-01-21 12:08 | CP.PCM.PN ---
<Justice Nelson - Last Filed: 01/21/17 12:02> Subjective - Date & Time of Evaluation Date of Evaluation: 01/21/17 Time of Evaluation: 09:10 - Subjective Subjective: Heme/onc note for Dr Leary: Pt seen and examined at bedside. No acute events overnight. RUE pain and weakness. Denies hematuria . Denies any f/c, n/v, cp, abd pain, bm changes. Objective - Vital Signs/Intake and Output Vital Signs (last 24 hours): Temp Pulse Resp BP Pulse Ox 98.3 F 78 18 132/84 97 01/21/17 08:02 01/21/17 11:08 01/21/17 08:02 01/21/17 11:11 01/21/17 08:02 Intake and Output: 01/21/17 01/21/17 06:59 18:59 Intake Total 1165 Output Total 1700 Balance -535 - Medications Medications: Current Medications Acetaminophen (Tylenol 325mg Tab) 650 mg PO Q4H PRN PRN Reason: Fever >100.5 F Albuterol/Ipratropium (Duoneb 3 Mg/0.5 Mg (3 Ml) Ud) 3 ml IH Q2H PRN PRN Reason: Shortness of Breath Last Admin: 01/18/17 05:57 Dose: 3 ml Amlodipine Besylate (Norvasc) 5 mg PO DAILY [facility] Last Admin: 01/21/17 11:11 Dose: 5 mg Arformoterol Tartrate (Brovana) 15 mcg IH [id number] [facility] Last Admin: 01/21/17 07:52 Dose: 15 mcg Benzonatate (Tessalon Perles) 100 mg PO TID [facility] Last Admin: 01/21/17 11:08 Dose: 100 mg Budesonide (Pulmicort Respules) 0.5 mg IH BIDRESP [facility] Last Admin: 01/21/17 07:52 Dose: 0.5 mg Calcium Carbonate (Caltrate) 600 mg PO BID [facility] Last Admin: 01/21/17 11:11 Dose: 600 mg Docusate Sodium (Colace) 100 mg PO TID [facility] Last Admin: 01/21/17 11:11 Dose: 100 mg Doxercalciferol (Hectorol) 0.5 mcg PO DAILY [facility] Last Admin: 01/21/17 11:12 Dose: 0.5 mcg Doxycycline Hyclate (Doryx) 100 mg PO Q12 [facility] PRN Reason: Protocol Stop: 01/27/17 22:01 Last Admin: 01/21/17 11:07 Dose: 100 mg Ergocalciferol (Drisdol 50,000 Intl Units Cap) 1 cap PO Q7D [facility] Last Admin: 01/19/17 14:25 Dose: 1 cap Fentanyl (Duragesic) 1 patch TD Q72H [facility] Last Admin: 01/20/17 21:24 Dose: 1 patch Fentanyl (Duragesic) 1 patch TD Q72H [facility] Last Admin: 01/18/17 13:01 Dose: Not Given Guaifenesin/Codeine Phosphate (Robitussin W/Codeine) 5 ml PO Q6H [facility] Last Admin: 01/21/17 06:07 Dose: 5 ml Heparin Sodium (Porcine) (Heparin) 5,000 units SC Q12 [facility] PRN Reason: Protocol Last Admin: 01/21/17 11:07 Dose: 5,000 units Hydromorphone HCl (Dilaudid-Hp 1 Mg/Ml Hot Patcher) 25 mls @ 0.1 mls/hr IV PRN PRN; Protocol PRN Reason: 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 LEAF SPRING REPAIR PER MD ORDER Sodium Chloride (Sodium Chloride 0.9%) 1,000 mls @ 70 mls/hr IV .[id number] [facility] Last Admin: 01/20/17 20:10 Dose: 70 mls/hr Levofloxacin (Levaquin) 500 mg PO MWF [facility] Stop: 01/29/17 10:01 Megestrol Acetate (Megace) 200 mg PO DAILY [facility] Last Admin: 01/21/17 11:07 Dose: 200 mg Methylprednisolone (Solu-Medrol) 40 mg IVP Q12 [facility] Last Admin: 01/21/17 11:07 Dose: 40 mg Metoprolol Tartrate (Lopressor) 25 mg PO BID [facility] Last Admin: 01/21/17 11:08 Dose: 25 mg Ondansetron HCl (Zofran Inj) 4 mg IVP Q4H PRN PRN Reason: Nausea/Vomiting Last Admin: 01/19/17 18:02 Dose: 4 mg Oxycodone HCl (Oxycodone Immediate Release Tab) 10 mg PO Q4H PRN PRN Reason: Pain, severe (8-10) Polyethylene Glycol (Miralax) 17 gm PO DAILY PRN PRN Reason: Constipation Last Admin: 01/19/17 14:36 Dose: 17 gm Pregabalin (Lyrica) 25 mg PO BID [facility] Last Admin: 01/21/17 11:08 Dose: 25 mg Tiotropium [place] (Spiriva) 18 mcg IH DAILY [facility] Last Admin: 01/21/17 11:08 Dose: 18 mcg - Labs Labs: 01/21/17 11:05 01/21/17 11:05 PT 12.2 Seconds (9.9-11.8) H 01/14/17 16:03 INR 1.13 (0.93-1.08) H 01/14/17 16:03 APTT 39.2 Seconds (23.7-30.8) H 01/14/17 16:03 - Constitutional Appears: No Acute Distress - Head Exam Head Exam: ATRAUMATIC, NORMOCEPHALIC - Eye Exam Eye Exam: EOMI, PERRL - ENT Exam ENT Exam: Mucous Membranes Moist - Respiratory Exam Respiratory Exam: Clear to Ausculation Bilateral. absent: Rales, Wheezes - Cardiovascular Exam Cardiovascular Exam: RRR, +S1, +S2 - GI/Abdominal Exam GI & Abdominal Exam: Soft. 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 UTI with hematuria now resolved. s/p kiney biopsy. Complicated by pneumonia on abx. 1. AC with Hematuria and uti - Cr 3.6 --> 3.0 --> 2.3 this am - s/p Kidney biopsy f/u pathology - ATN from chemo - Possible but unlikely - Bladder & renal US was mainly unremarkable - Nephrology consult appreciated - ID consulted -may switch to PO levaquin and doxy 2. Sob - possible pneumonia - CT chest shows some L sided multifocal infiltrate and possible pneumonia - Pulm consulted for recs - Robitussin with codeine prn changed to scheduled - ID consulted regarding possible pneumonia - procal elevated, vanc intermittent , and aztreonam 3. RUE pain - Cont dilaudid SUPERVISOR LEAF SPRING REPAIR - Neuro consulted for recs- pt refused decompressive sx in the past - rec Lyrica 75m BID for neuropathic pain - Pt refused MRI of cervical and thoracic spine to check for progression of dx - Pain management as outpatient 4. Hx of stage 4 non-small cell lung ca mets to thoracic spine - On chemo - carboplatin and pemetrexed - Pain control 5.Anemia - Hb of 9.3 this am -Type and cross -s/p 1 unit PRBC Palliative consult appreciated Dispo: plan for d/c today Case and plan was reviewed and discussed with Dr Leary <Lizzie Leary P - Last Filed: 01/24/17 23:25> Objective - Vital Signs/Intake and Output Vital Signs (last 24 hours): Temp Pulse Resp BP Pulse Ox 98.6 F 80 20 144/94 H 95 01/21/17 16:00 01/21/17 17:24 01/21/17 16:00 01/21/17 18:58 01/21/17 16:00 - Labs Labs: 01/21/17 11:05 01/21/17 11:05 PT 12.2 Seconds (9.9-11.8) H 01/14/17 16:03 INR 1.13 (0.93-1.08) H 01/14/17 16:03 APTT 39.2 Seconds (23.7-30.8) H 01/14/17 16:03 Attending/Attestation - Attestation I have personally seen and examined this patient.: Yes I have fully participated in the care of the patient.: Yes I have reviewed all pertinent clinical information, including history, physical exam and plan: Yes
--- NOTE | 2017-01-21 13:03 | PN ---
DATE: 01/21/2017 REASON FOR CONSULTATION: Chest pain secondary to tumor, lung CA, acute kidney injury, hematuria. SUBJECTIVE: Denies any shortness of breath or palpitations, but complained of pain at right side of the chest at the site of the tumor. OBJECTIVE GENERAL: Sitting at the bedside, did not eat breakfast because he was sleeping. VITAL SIGNS: Temperature afebrile, heart rate 78, blood pressure 132/84. HEENT: PERRLA intact. NECK: Supple. No carotid bruits or thyromegaly. CHEST: Clear to auscultation. HEART: S1 and S2 regular. ABDOMEN: Soft. EXTREMITIES: Clubbing and cyanosis negative. LABORATORY DATA: Blood workup as follows: WBC 12.8, hemoglobin 9.2, hematocrit 28.5, platelet count 70. Chemistry shows sodium 142, potassium 3.6, chloride 111, carbon dioxide 28, anion gap of 15, BUN 44, creatinine 2.3. Total protein 5.7, albumin 2.7, albumin globulin ratio 1. IMPRESSION: Hypokalemia, anemia, lung carcinoma, right-sided chest pain secondary to carcinoma, chest pain is musculoskeletal, acute kidney injury, thrombocytopenia, hematuria, protein-calorie malnutrition. Most recent echo shows [id number] mitral regurgitation, [id number] tricuspid regurgitation, right ventricular systolic pressure of 40, mildly elevated pulmonary hypertension, normal left ventricular function, ejection fraction 50%. RECOMMENDATION: Continue calcium carbonate daily, continue doxycycline, adequate analgesia. DVT prophylaxis subcutaneous heparin. CVS status is stable. We will follow with you. We will supplement potassium. Increase nutritional support. We will add on Ensure pudding. Hypocalcemia secondary to hypoalbuminemia. Protein-calorie malnutrition is moderate, which was not present on admission. Thank you Dr. Fermin for providing me the opportunity in taking care of patient, Marc Tate. Elisabet Felton MD
--- NOTE | 2017-01-21 14:08 | CP.PCM.PN ---
Subjective - Date & Time of Evaluation Date of Evaluation: 01/21/17 Time of Evaluation: 11:15 - Subjective Subjective: Comfortable in bed, not in distress, afebrile, not short of breath at rest. Objective - Vital Signs/Intake and Output Vital Signs (last 24 hours): Temp Pulse Resp BP Pulse Ox 98.3 F 70 18 154/92 H 97 01/21/17 08:02 01/21/17 08:02 01/21/17 08:02 01/21/17 08:02 01/21/17 08:02 Intake and Output: 01/21/17 01/21/17 06:59 18:59 Intake Total 1165 Output Total 1700 Balance -535 - Medications Medications: Current Medications Acetaminophen (Tylenol 325mg Tab) 650 mg PO Q4H PRN PRN Reason: Fever >100.5 F Albuterol/Ipratropium (Duoneb 3 Mg/0.5 Mg (3 Ml) Ud) 3 ml IH Q2H PRN PRN Reason: Shortness of Breath Last Admin: 01/18/17 05:57 Dose: 3 ml Amlodipine Besylate (Norvasc) 5 mg PO DAILY [facility]S [facility] Last Admin: 01/20/17 10:00 Dose: 5 mg Arformoterol Tartrate (Brovana) 15 mcg IH [id number] COUNTS [facility]CLUDE 234 BEDS AT [facility] Last Admin: 01/21/17 07:52 Dose: 15 mcg Benzonatate (Tessalon Perles) 100 mg PO TID COUNTS [facility]CLUDE 234 B[facility]S AT [facility] Last Admin: 01/20/17 19:06 Dose: 100 mg Budesonide (Pulmicort Respules) 0.5 mg IH BIDRESP COUNTS [facility]CLUDE 234 BEDS AT [facility] Last Admin: 01/21/17 07:52 Dose: 0.5 mg Calcium Carbonate (Caltrate) 600 mg PO BID [facility] Docusate Sodium (Colace) 100 mg PO TID COUNTS [facility]CLUDE 234 B[facility]S AT [facility] Last Admin: 01/20/17 19:05 Dose: 100 mg Doxercalciferol (Hectorol) 0.5 mcg PO DAILY COUNTS [facility]CLUDE 234 B[facility]S AT [facility] Last Admin: 01/20/17 20:11 Dose: 0.5 mcg Doxycycline Hyclate (Doryx) 100 mg PO Q12 [facility] PRN Reason: Protocol Stop: 01/27/17 22:01 Last Admin: 01/20/17 21:25 Dose: 100 mg Ergocalciferol (Drisdol 50,000 Intl Units Cap) 1 cap PO Q7D [facility]S [facility]CLUDE 234 B[facility]S AT [facility] Last Admin: 01/19/17 14:25 Dose: 1 cap Fentanyl (Duragesic) 1 patch TD Q72H [facility]S [facility] 234 [facility]S AT [facility] Last Admin: 01/20/17 21:24 Dose: 1 patch Fentanyl (Duragesic) 1 patch TD Q72H [facility]S [facility] 234 [facility]S AT [facility] Last Admin: 01/18/17 13:01 Dose: Not Given Guaifenesin/Codeine Phosphate (Robitussin W/Codeine) 5 ml PO Q6H COUNTS [facility] 234 B[facility]S AT [facility] Last Admin: 01/21/17 06:07 Dose: 5 ml Heparin Sodium (Porcine) (Heparin) 5,000 units SC Q12 [facility] 234 [facility]S AT [facility] PRN Reason: Protocol Last Admin: 01/20/17 21:17 Dose: 5,000 units Iron Sucrose 200 mg/ Sodium (Chloride) 110 mls @ 110 mls/hr IVPB DAILY [facility] 234 [facility]S AT [facility] Stop: 01/21/17 10:01 Last Admin: 01/20/17 14:08 Dose: 110 mls/hr Hydromorphone HCl (Dilaudid-Hp 1 Mg/Ml Industrial Waste Treatment Technician) 25 mls @ 0.1 mls/hr IV PRN PRN; Protocol PRN Reason: 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 PER MD ORDER Sodium Chloride (Sodium Chloride 0.9%) 1,000 mls @ 70 mls/hr IV .[id number] COUNTS [facility]CLUDE 234 B[facility]S AT [facility] Last Admin: 01/20/17 20:10 Dose: 70 mls/hr Levofloxacin (Levaquin) 500 mg PO MWF COUNTS [facility]CLUDE 234 B[facility]S AT [facility] Stop: 01/29/17 10:01 Megestrol Acetate (Megace) 200 mg PO DAILY [facility] 234 [facility]S AT [facility] Last Admin: 01/20/17 10:00 Dose: 200 mg Methylprednisolone (Solu-Medrol) 40 mg IVP Q12 [facility]S [facility] 234 [facility]S AT [facility] Last Admin: 01/20/17 21:17 Dose: 40 mg Metoprolol Tartrate (Lopressor) 25 mg PO BID COUNTS [facility] 234 [facility]S AT [facility] Last Admin: 01/20/17 19:06 Dose: 25 mg Ondansetron HCl (Zofran Inj) 4 mg IVP Q4H PRN PRN Reason: Nausea/Vomiting Last Admin: 01/19/17 18:02 Dose: 4 mg Oxycodone HCl (Oxycodone Immediate Release Tab) 10 mg PO Q4H PRN PRN Reason: Pain, severe (8-10) Polyethylene Glycol (Miralax) 17 gm PO DAILY PRN PRN Reason: Constipation Last Admin: 01/19/17 14:36 Dose: 17 gm Pregabalin (Lyrica) 25 mg PO BID COUNTS [facility]CLUDE 234 BEDS AT [facility] Last Admin: 01/20/17 19:05 Dose: 25 mg Tiotropium [place] (Spiriva) 18 mcg IH DAILY COUNTS [facility]CLUDE 234 BEDS AT [facility] Last Admin: 01/20/17 10:00 Dose: 18 mcg - Labs Labs: 01/20/17 06:15 01/20/17 06:15 PT 12.2 Seconds (9.9-11.8) H 01/14/17 16:03 INR 1.13 (0.93-1.08) H 01/14/17 16:03 APTT 39.2 Seconds (23.7-30.8) H 01/14/17 16:03 - Constitutional Appears: Non-toxic, No Acute Distress - Head Exam Head Exam: NORMAL INSPECTION - ENT Exam ENT Exam: Mucous Membranes Moist - Neck Exam Neck Exam: absent: Meningismus - Respiratory Exam Respiratory Exam: Decreased Breath Sounds - Cardiovascular Exam Cardiovascular Exam: +S1, +S2 - GI/Abdominal Exam GI & Abdominal Exam: Soft. absent: Tenderness Assessment and Plan - Assessment and Plan (Free Text) Plan: Assessment Hematuria and urinary frequency, probably UTI with Proteus lung infiltrates on CT chest R/O pneumonia Right lung mass, which is poorly-differentiated non-small cell lung cancer on pathology S/P biopsy 10/16/2016 on radiotherapy and chemotherapy COPD Plan continue PO Levaquin and Doxycycline (day 5 total antibiotics); would complete another 3-5 days of antibiotics will continue to monitor clinically follow up biopsy results of the kidney suggest Urology evaluation
--- NOTE | 2017-01-21 14:13 | PN ---
DATE: SUBJECTIVE: The patient is currently seen,oxygen in place, sitting in a chair. The patient is being discharged home later today to home hospice. The patient appears to be stable. He appears to be in no acute distress. MEDICATIONS: Medication list reviewed. The patient is currently on Brovana, calcium carbonate, Colace, Dilaudid, TECHNICAL SUPPORT ANALYST, Doryx, vitamin D, Duoneb, Duragesic, Hectorol, heparin, Levaquin, Lopressor, Lyrica, Megace, MiraLax, Norvasc, oxycodone, Pulmicort Respules, Robitussin with Codeine, normal saline 70 an hour, Solu-Medrol, Spiriva, Tessalon Perles, Tylenol p.r.n., and Zofran p.r.n. OBJECTIVE: INTAKE/OUTPUT: Intake 1581, output 2200. VITAL SIGNS: Blood pressure 154/92, temperature 98.3, pulse is 70, and respiratory rate 18, pulse ox 97%. HEENT: Shows him to be normocephalic and atraumatic. Conjunctivae are pale. Sclerae are nonicteric. NECK: Supple. No neck vein distention. CHEST: No rales, no rhonchi, no wheezing. Bilateral equal air entry. CARDIOVASCULAR: S1 and S2 were normal. No murmurs, rubs, or gallops noted. ABDOMEN: Soft. Nondistended, nontender. Bowel sounds are normal. No rebound, no guarding. EXTREMITIES: Show no lower extremity cyanosis, clubbing, or edema. LABORATORY DATA AND IMAGING: CBC; white blood cell count 13.6, hemoglobin 8.4, with a platelet count of 73,000, manual platelet count was 85,000. Chemistries from yesterday shows sodium of 140, potassium 4.0, chloride 109 with CO2 of 19. BUN 55 with a creatinine of 3.0, improved. Glucose is 129. Calcium 6.8, albumin is 2.7, corrected calcium is 7.8. Last phosphorus level was 6.0 with a magnesium level of 1.8. Vitamin D level was low. The patient remains on vitamin D supplements. PTH level was in the low normal range. Microbiology; urine was positive for Proteus. Blood cultures were negative. ASSESSMENT: 1. Acute renal failure, acute tubular necrosis suspect. The patient is status post a renal biopsy. 2. Proteus urinary tract infection being treated appropriately with antibiotic therapy. 3. History of stage IV lung cancer with metastasis to bone. The patient is likely going to be sent home today on home hospice. 4. History of hypocalcemia secondary to low vitamin D levels and likely primary hypoparathyroidism. 5. History of anemia with thrombocytopenia, currently stable. PLAN: 1. The patient appears to be stable from a renal standpoint. 2. Continue present medication for blood pressure control. 3. Attempt to decrease steroid dose. 4. Supportive care at home as the patient is being discharged home later today on home hospice. 5. Complete his course of antibiotic therapy. Luis Law MD
[2017-01-21] MEDS: Sodium Chloride 0.9% 1,000 ML IV SCH (14:22)
[2017-01-21 16:55] VITALS: RESP 20; TEMP 98.6; O2SAT 95
[2017-01-21 17:25] VITALS: PULSE 80
[2017-01-21 18:59] VITALS: BP 144/94
--- NOTE | 2017-01-22 01:17 | PN ---
DATE: 01/21/2017 PULMONARY PROGRESS NOTE REFERRING PHYSICIAN: Dr. Fermin. SUBJECTIVE: The patient is lying with the head 45 degree, wants to go home. Still on IV fluid, IV iron, on Dilaudid PAYROLL ACCOUNTING MANAGER pump. Pain little better. Still has some cough. No nausea, no vomiting, no diarrhea. leg swelling. PHYSICAL EXAMINATION: GENERAL: In no acute distress. VITAL SIGNS: Temperature is 98, heart rate is 78, respiratory rate is 20, blood pressure 144/94, and pulse ox 95% on room air. HEENT: Moist mucous membranes. Small oral cavity. NECK: Supple. No JVD. LUNGS: There are few scattered rhonchi. HEART: S1 and S2. ABDOMEN: Soft and nontender. No organomegaly. EXTREMITIES: No edema. NEUROLOGICAL: Awake and alert. Follows simple command. LABORATORY DATA: Shows hemoglobin 9.3, hematocrit 28.5, WBC 12.9, and platelet is 70. Sodium 142, potassium 3.6, chloride 111, bicarbonate 20, BUN 44, creatinine 2.3, glucose 90, calcium is 6.8. AST 32, ALT 36, alkaline phosphatase is 81, and albumin is 2.7. Microbiology: Urine culture has Proteus mirabilis. MEDICATIONS: No new changes in medications reported since yesterday. IMPRESSION AND PLAN: Metastatic lung cancer, chronic obstructive lung disease, pneumonia, and urinary tract infection. Pulmonary point of view, doing okay. Continue bronchodilator, antibiotics, pain management, gastric prophylaxis. lower extremity. Continue supportive care. The patient will be transferred to [facility]. Thank you and we will follow with you. Elisabet Pelaez MD
[2017-01-22] MEDS ORDERED: levoFLOXacin 500 MG TAB PO SCH (10:00)
== END 2017-01-21 20:01 | DRG 682 ==
LOC: ED 14:24 → ERH 17:31 → 5RSO 18:41 → OBSVTOIN 01-17 11:30 → 5RSO 01-19 07:42
PROVIDERS: ADMIT Internal Medicine; ATTEND Internal Medicine
PROC: 30233N1 Transfusion of Nonautologous Red Blood Cells into Peripheral Vein, Percutaneous Approach (ICD-10-PCS; 2017-01-16)
PROC: 0TB13ZX Excision of Left Kidney, Percutaneous Approach, Diagnostic (ICD-10-PCS; principal; 2017-01-17 10:00)
DX: N17.9 Acute kidney failure, unspecified (principal); J18.9 Pneumonia, unspecified organism; J44.0 Chronic obstructive pulmonary disease with (acute) lower respiratory infection; C34.91 Malignant neoplasm of unspecified part of right bronchus or lung; C79.51 Secondary malignant neoplasm of bone; R64 Cachexia; E44.0 Moderate protein-calorie malnutrition; E87.2 Acidosis; N39.0 Urinary tract infection, site not specified; B96.4 Proteus (mirabilis) (morganii) as the cause of diseases classified elsewhere; D50.0 Iron deficiency anemia secondary to blood loss (chronic); R31.0 Gross hematuria; R03.0 Elevated blood-pressure reading, without diagnosis of hypertension; E87.5 Hyperkalemia; G89.3 Neoplasm related pain (acute) (chronic); G89.4 Chronic pain syndrome; M54.2 Cervicalgia; D69.6 Thrombocytopenia, unspecified; E20.8 Other hypoparathyroidism; E87.70 Fluid overload, unspecified; R62.7 Adult failure to thrive; I08.3 Combined rheumatic disorders of mitral, aortic and tricuspid valves; E83.51 Hypocalcemia; I27.2 Other secondary pulmonary hypertension; Z68.22 Body mass index [BMI] 22.0-22.9, adult; Z87.891 Personal history of nicotine dependence; Z88.0 Allergy status to penicillin

== ENCOUNTER 2017-01-21 20:11 | Inpatient (IN) | payer OTHER, MEDICAID ==
[2017-01-21] MEDS ORDERED: Albuterol-Ipratrop 3 mg / 0.5 (3 ml) UD IH PRN (21:07)
[2017-01-21] MEDS ORDERED: HYDROmorphone 1 mg/ml PCA 25 ML IV PRN (21:35)
[2017-01-21] MEDS: Sodium Chloride 0.9% 1,000 ML IV SCH (22:42)
[2017-01-22 00:27] VITALS: BMI 24.0
[2017-01-22] MEDS: guaiFENesin-Codeine 100-10mg/5ml Syrup (5 ml) UD PO SCH ×4 (00:28→17:25)
[2017-01-22] MEDS: MethylPREDNISolone 40 mg Vial IVP SCH ×2 (06:13→17:14)
[2017-01-22 07:12] LABS: BASO # 0.01 K/mm3 (0.0-2.0); BASO % 0.1 % (0.0-3.0); EOS % 0.1 % (1.5-5.0); GRAN # 12.74 (1.4-6.5); GRAN % 86.4 % (50.0-68.0); LYMPH # 1.1 (1.2-3.4); LYMPH % 7.5 % (22.0-35.0); MEAN CELL VOLUME 89.3 fl (80.0-105.0); MEAN CORPUSCULAR HEMOGLOBIN 28.8 pg (25.0-35.0); MEAN CORPUSCULAR HGB CONC 32.3 g/dl (31.0-37.0); MEAN PLATELET VOLUME 10.7 fl (7.0-11.0); MONO # 0.9 (0.1-0.6); MONO % 5.9 % (1.0-6.0); RED CELL DISTRIBUTION WIDTH 16.1 % (11.5-14.5); WHITE BLOOD COUNT 14.7 10^3/ul (4.5-11.0)
[2017-01-22 07:34] LABS: BILIRUBIN,TOTAL 0.4 mg/dL (0.2-1.3); POTASSIUM 3.5 mmol/L (3.6-5.0); TOTAL PROTEIN 5.6 g/dL (5.8-8.3)
[2017-01-22 08:02] LABS: CALCIUM 6.8 mg/dL (8.4-10.5)
[2017-01-22] MEDS: Budesonide 0.5 mg/2 ml Inhal Susp UD IH SCH ×2 (08:44→20:28)
[2017-01-22] MEDS: Arformoterol 15 mcg/2 ml Inh Sol IH SCH ×2 (08:44→20:28)
[2017-01-22] MEDS ORDERED: levoFLOXacin 500 MG TAB PO SCH (10:00)
[2017-01-22] MEDS: levoFLOXacin 500 MG TAB PO SCH (10:20)
[2017-01-22] MEDS: Megestrol Acetate 40 mg/ml Cup PO SCH (10:25)
[2017-01-22] MEDS: POLYETHYLENE GLYCOL 3350 17 GM/Dose PACKET PO SCH (10:28)
[2017-01-22] MEDS: Tiotropium 18 mcg Cap For Inhalation IH SCH (10:29)
--- NOTE | 2017-01-22 14:15 | CP.PCM.CON ---
History of Present Illness - History of Present Illness History of Present Illness: 56 year old male with PMH of COPD, metastatic lung cancer on chemotherapy, history of cellulitis of lower extremities came in to [facility] because of hematuria. He was found to have UTI and renal failure and is being treated for these. He also had a CT chest which could not rule out pneumonia. He has been doing well on antibiotics and is now transferred to [facility] for continued medical therapy and physical rehab. Infectious Diseases consult is requested to continue his antibiotic therapy. Currently the patient is resting comfortably, not in distress, with occasional pain controlled with pain meds. He denies fever or chills, no nausea or vomiting, no chest pain, no SOB at rest , no cough currently, no abdominal pain, no diarrhea, no dysuria. Review of Systems - Review of Systems All systems: reviewed and no additional remarkable complaints except (as per HPI ) Past Patient History - Infectious Disease Hx of Infectious Diseases: None - Past Social History Smoking Status: Former Smoker - CARDIAC Hx Cardiac Disorders: No - PULMONARY Hx Chronic Obstructive Pulmonary Disease (COPD): Yes - NEUROLOGICAL Hx Neurological Disorder: No - HEENT Hx HEENT Problems: No - RENAL Hx Chronic Kidney Disease: No - ENDOCRINE/METABOLIC Hx Endocrine Disorders: No - HEMATOLOGICAL/ONCOLOGICAL Hx Blood Disorders: Yes - INTEGUMENTARY Hx Dermatological Problems: No Other/Comment: BILATERAL PITTNG EDEMA T0 FOOT +2 MORE TO RIGHT. - MUSCULOSKELETAL/RHEUMATOLOGICAL Hx Musculoskeletal Disorders: Yes Hx Falls: No Hx Unsteady Gait: Yes - GASTROINTESTINAL Hx Gastrointestinal Disorders: No - GENITOURINARY/GYNECOLOGICAL Hx Genitourinary Disorders: Yes Hx Hematuria: Yes (01-14-17) - PSYCHIATRIC Hx Psychophysiologic Disorder: Yes Hx Depression: Yes - SURGICAL HISTORY Hx Surgeries: Yes Hx Musculoskeletal Surgery: Yes (plate placed in back) Hx Orthopedic Surgery: Yes (R shoulder) - ANESTHESIA Hx Anesthesia: Yes Meds Allergies/Adverse Reactions: Allergies Allergy/AdvReac Type Severity Reaction Status Date / Time Penicillins Allergy ANAPHYLAXIS Verified 01/22/17 03:17 - Medications Medications: Current Medications Acetaminophen (Tylenol 325mg Tab) 650 mg PO Q4H PRN PRN Reason: Fever >100.4 F Albuterol/Ipratropium (Duoneb 3 Mg/0.5 Mg (3 Ml) Ud) 3 ml IH Q2H PRN PRN Reason: Shortness of Breath Amlodipine Besylate (Norvasc) 5 mg PO DAILY [facility] Arformoterol Tartrate (Brovana) 15 mcg IH [id number] Benzonatate (Tessalon Perles) 100 mg PO TID [facility] Budesonide (Pulmicort Respules) 0.5 mg IH BIDRESP [facility] Calcium Carbonate (Caltrate) 600 mg PO BID [facility] Docusate Sodium (Colace) 100 mg PO TID [facility] Doxercalciferol (Hectorol) 0.5 mcg PO DAILY [facility] Doxycycline Hyclate (Doryx) 100 mg PO Q12 [facility] PRN Reason: Protocol Last Admin: 01/21/17 22:43 Dose: 100 mg Ergocalciferol (Drisdol 50,000 Intl Units Cap) 1 cap PO Q7D [facility] Fentanyl (Duragesic) 1 patch TD Q72H [facility] Fentanyl (Duragesic) 1 patch TD Q72H [facility] Guaifenesin/Codeine Phosphate (Robitussin W/Codeine) 5 ml PO Q6 [facility] Last Admin: 01/22/17 06:14 Dose: 5 ml Heparin Sodium (Porcine) (Heparin) 5,000 units SC 0600,1800 [facility] PRN Reason: Protocol Last Admin: 01/22/17 06:11 Dose: 5,000 units Sodium Chloride (Sodium Chloride 0.9%) 1,000 mls @ 70 mls/hr IV .[id number] [facility] Last Admin: 01/21/17 22:42 Dose: 70 mls/hr Hydromorphone HCl (Dilaudid-Hp 1 Mg/Ml Police Inspector) 25 mls @ 0.1 mls/hr IV PRN PRN; Protocol PRN Reason: 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 SPECIALIST PER MD ORDER Levofloxacin (Levaquin) 500 mg PO QOTHERDAY [facility] Megestrol Acetate (Megace) 200 mg PO DAILY [facility] Methylprednisolone (Solu-Medrol) 40 mg IVP 0600,1800 [facility] Last Admin: 01/22/17 06:13 Dose: 40 mg Metoprolol Tartrate (Lopressor) 25 mg PO BRKDIN [facility] Ondansetron HCl (Zofran Inj) 4 mg IVP Q4H PRN PRN Reason: Nausea/Vomiting Oxycodone HCl (Oxycodone Immediate Release Tab) 10 mg PO Q4 PRN PRN Reason: Pain, severe (8-10) Polyethylene Glycol (Miralax) 17 gm PO DAILY [facility] Pregabalin (Lyrica) 25 mg PO BID [facility] Tiotropium [place] (Spiriva) 18 mcg IH DAILY [facility] Physical Exam - Constitutional Appears: Non-toxic, No Acute Distress - Head Exam Head Exam: NORMAL INSPECTION - ENT Exam ENT Exam: Mucous Membranes Moist - Neck Exam Neck exam: Negative for: Meningismus - Respiratory Exam Respiratory Exam: Decreased Breath Sounds - Cardiovascular Exam Cardiovascular Exam: +S1, +S2 - GI/Abdominal Exam GI & Abdominal Exam: Soft. absent: Tenderness Results - Vital Signs Recent Vital Signs: Last Vital Signs Temp 98.3 F 01/21/17 23:34 Pulse 73 01/21/17 23:34 Resp 19 01/21/17 23:34 BP 164/88 H 01/21/17 23:34 Pulse Ox - Labs Result Diagrams: 01/22/17 07:00 01/22/17 07:00 Assessment & Plan - Assessment and Plan (Free Text) Plan: Assessment Hematuria and urinary frequency, probably UTI with Proteus lung infiltrates on CT chest R/O pneumonia Right lung mass, which is poorly-differentiated non-small cell lung cancer on pathology S/P biopsy 10/16/2016 on radiotherapy and chemotherapy COPD Plan continue PO Levaquin and Doxycycline (day 6 total antibiotics); would complete another 2-4 days of antibiotics will continue to monitor clinically follow up biopsy results of the kidney suggest Urology evaluation
--- NOTE | 2017-01-22 23:31 | CON ---
DATE: 01/22/2017 Hospital visit on TCU. For Dr. Leary. CHIEF COMPLAINT: Deconditioning. HISTORY OF PRESENT ILLNESS: Patient is a 56-year-old male, follows with Dr. 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 He also had acute renal failure with urinary tract infection, hematuria, with failure to thrive as his previous diagnosis including COPD, and strong smoking history. At present, patient is now on a PCI narcotic analgesic pump in no acute distress, reporting his pain is relatively well controlled, participating in TCU protocols. PAST MEDICAL HISTORY: As above. FAMILY HISTORY, SOCIAL HISTORY: Former approximately 2 pack a day smoker. Otherwise noncontributory. ALLERGIES: PENICILLIN. MEDICATIONS: Include Brovana, Caltrate, Colace, PCI Dilaudid pump, doxycycline, vitamin D, DuoNeb, Duragesic patch, Hectorol, heparin subcutaneous, Levaquin, Lopressor, Lyrica, Megace, MiraLax, Norvasc, oxycodone, Pulmicort, Robitussin with Codeine, Solu-Medrol, Spiriva, Tessalon Perles, Zofran, Tylenol. REVIEW OF SYSTEMS: Twelve point review of systems essentially negative to questioning except for items indicated in history of present illness. PHYSICAL EXAMINATION GENERAL: He appears cachectic. VITAL SIGNS: Temperature 98.3, pulse 78, respirations 20, blood pressure 154/87, pulse ox 98%. HEENT: Sunken temples. Tongue is moist. NECK: Supple. HEART: Tachy rate, regular rhythm. LUNGS: Rare rhonchi. ABDOMEN: Scaphoid, nontender. EXTREMITIES: No edema. SKIN: Warm, dry, and clear. 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 LABORATORY DATA: The patient's labs were done. White blood cell count of 14.7, hemoglobin of 10.0, status post transfusions recently, hemoglobin 8.4 on 01/20. Hematocrit 31.0, platelet count of 91,000, up from 73,000 two days prior. His chem metabolic panel shows a calcium of 6.8, BUN of 31, creatinine 2.1, potassium 3.5, which is being followed by Dr. Law, renal. ASSESSMENT: For this patient is that of acute renal failure, deconditioning, history of proteus urinary tract infection, stage IV non-small cell CA of the lung with metastasis to the thoracic spine with intractable pain on [employer] narcotic analgesics, hematuria, history of smoking, chronic obstructive pulmonary disease. PLAN: For this patient after conversation with Dr. Leary is to continue present medical regimen as per Dr. Fermin with consultants recommendations to be followed including pulmonary Dr. Pelaez, renal Dr. Meléndez and Dr. Law, infectious disease Dr. Rock and cardiology Dr. Felton. Prognosis for this patient is unfortunately poor due to his metastatic changes and delay in resumption of his chemotherapy due to hospitalization for intractable pain. We will monitor clinically with labs. Prognosis for this patient is guarded. Reagan Antoine MD
[2017-01-22] MEDS: oxyCODONE 10 mg Immediate Release Tab PO PRN (23:44)
[2017-01-23] MEDS: guaiFENesin-Codeine 100-10mg/5ml Syrup (5 ml) UD PO SCH ×5 (00:29→18:38)
[2017-01-23] MEDS: Sodium Chloride 0.9% 1,000 ML IV SCH ×3 (01:30→13:30)
--- NOTE | 2017-01-23 02:17 | CON ---
DATE: 01/22/2017. PULMONARY CONSULTATION REFERRING PHYSICIAN: . REASON FOR CONSULTATION: Metastatic lung cancer, COPD, chronic pain syndrome. HISTORY OF PRESENT ILLNESS: This is a 56-year-old gentleman with known metastatic lung cancer involving the spine, ribs, been on radiation and chemotherapy, was on acute side of the hospital with pneumonia treated with antibiotics, bronchodilator, , Dilaudid, AIR VALUE TESTER pump, presently admitted to [facility] for continued care. He is lying in the bed, head at 45 degrees, family is at bedside, still had a right-sided pain, mild cough, no nausea, no vomiting. No diarrhea. No leg pain or leg swelling. PAST MEDICAL HISTORY: Chronic obstructive lung disease, stage IV lung cancer with mets, resolving pneumonia. FAMILY HISTORY: Positive uterine cancer and lymphoma. SOCIAL HISTORY: Heavy smoker. ALLERGIES: To PENICILLIN. MEDICATIONS: Brovana 15 mcg inhaled twice a day, calcium carbonate 600 mg daily, Colace 100 mg 3 times a day, Dilaudid AIR VALUE TESTER pump, doxycycline 100 mg twice a day, vitamin D 50,000 units q. 7 days, DuoNeb q. 12 hour p.r.n., Duragesic patch q. 72 hours, heparin 5000 units subcutaneous q. 12 hours, Levaquin 500 mg every other day, metoprolol tartrate 25 mg twice a day, Lyrica 25 mg twice a day, Megace 200 mg daily, MiraLax 17 g p.o. daily, Norvasc 5 mg daily, oxycodone immediate release 10 mg q. 4 hours p.r.n., Pulmicort inhaled twice a day, Robitussin With Codeine 5 mL q. 6 hours, IV fluid normal saline 70 mL/hour, Solu-medrol 40 mg twice a day, Spiriva inhaled daily, Tessalon Perles 100 mg 3 times a day, Tylenol p.r.n. basis, Zofran p.r.n. basis. REVIEW OF SYSTEMS: No headache, no rhinitis, does have some cough, shortness of breath, right-sided chest pain, no nausea, no vomiting, no diarrhea, no leg pain or leg swelling. PHYSICAL EXAMINATION GENERAL: Lying in the bed, no acute distress. VITAL SIGNS: No acute distress. VITAL SIGNS: Temperature 98,heart rate is 73, respiratory rate is 20, blood pressure 167/97, pulse ox 95% on 2 liters nasal cannula. HEENT: Moist mucous membranes. Crowded airway. Mallampati score is 4. NECK: Supple. No JVD. LUNGS: Decreased breath sounds at right lung. HEART: S1 and S2. ABDOMEN: Soft, nontender. No organomegaly. EXTREMITIES: No edema. NEUROLOGIC: Awake and alert, follows simple commands. LABORATORY DATA: Shows hemoglobin 10, hematocrit 31.7, WBC 14.7, platelet is 91, sodium 143, potassium 2.5, chloride 113, bicarbonate 22, BUN 13, creatinine 2.1, calcium 6.8. AST 37, ALT 35, alk phos is 91, albumin is 2.8. Urine culture, protein mirabilis. Blood culture, there is no growth. IMPRESSION AND PLAN: Metastatic lung cancer, chronic obstructive lung disease, resolving pneumonia, urinary tract infection, renal failure. Pulmonary point of view, doing okay. Continue IV and inhaled bronchodilator. Antibiotics. Gastric prophylaxis. SCD to lower extremity. Follow up electrolytes. Palliative care. Thank you and we will follow with you. Elisabet Pelaez MD
[2017-01-23] MEDS: MethylPREDNISolone 40 mg Vial IVP SCH ×2 (05:16→17:21)
[2017-01-23] MEDS: Budesonide 0.5 mg/2 ml Inhal Susp UD IH SCH ×2 (07:24→20:06)
[2017-01-23] MEDS: Arformoterol 15 mcg/2 ml Inh Sol IH SCH ×2 (07:24→20:05)
[2017-01-23 08:36] LABS: GRAN # 15.53 (1.4-6.5); GRAN % 94.3 % (50.0-68.0); LYMPH # 0.6 (1.2-3.4); LYMPH % 3.6 % (22.0-35.0); MEAN CELL VOLUME 89.4 fl (80.0-105.0); MEAN CORPUSCULAR HEMOGLOBIN 30.1 pg (25.0-35.0); MEAN CORPUSCULAR HGB CONC 33.6 g/dl (31.0-37.0); MONO # 0.3 (0.1-0.6); MONO % 2.1 % (1.0-6.0); PLATELET COUNT 96 10^3/uL (120.0-450.0); RED CELL DISTRIBUTION WIDTH 15.9 % (11.5-14.5); WHITE BLOOD COUNT 16.5 10^3/ul (4.5-11.0)
[2017-01-23 08:41] LABS: BILIRUBIN,TOTAL 0.6 mg/dL (0.2-1.3); CALCIUM 7.4 mg/dL (8.4-10.5); POTASSIUM 3.5 mmol/L (3.6-5.0); TOTAL PROTEIN 6.2 g/dL (5.8-8.3)
[2017-01-23 08:54] LABS: NEUTROPHIL 95 % (50.0-70.0)
[2017-01-23 08:55] LABS: ANISOCYTOSIS SLIGHT; HYPOCHROMIA SLIGHT; PLATELET ESTIMATE LOW (NORMAL)
[2017-01-23 08:56] LABS: TOXIC GRANULATION SLIGHT
[2017-01-23] MEDS: Megestrol Acetate 40 mg/ml Cup PO SCH (09:55)
[2017-01-23] MEDS: POLYETHYLENE GLYCOL 3350 17 GM/Dose PACKET PO SCH ×2 (09:55→10:09)
[2017-01-23] MEDS: Tiotropium 18 mcg Cap For Inhalation IH SCH (09:56)
[2017-01-23] MEDS: oxyCODONE 10 mg Immediate Release Tab PO PRN ×3 (10:11→21:40)
--- NOTE | 2017-01-23 11:04 | CP.PCM.PN ---
<Justice Nelson - Last Filed: 01/23/17 10:52> Subjective - Date & Time of Evaluation Date of Evaluation: 01/23/17 Time of Evaluation: 07:40 - Subjective Subjective: Heme/onc note for Dr Leary: Pt seen and examined at bedside. No acute events overnight. RUE pain 5/10 in severity at this time. No hematuria . Denies any f/c, n/v, cp, abd pain, bm changes. Objective - Vital Signs/Intake and Output Vital Signs (last 24 hours): Temp Pulse Resp BP Pulse Ox 98.3 F 75 20 162/95 H 98 01/22/17 16:23 01/23/17 08:09 01/22/17 16:23 01/23/17 09:52 01/22/17 16:23 Intake and Output: 01/23/17 01/23/17 06:59 18:59 Intake Total 600 840 Output Total 1000 2000 Balance -400 -1160 - Medications Medications: Current Medications Acetaminophen (Tylenol 325mg Tab) 650 mg PO Q4H PRN PRN Reason: Fever >100.4 F Last Admin: 01/22/17 15:01 Dose: 650 mg Albuterol/Ipratropium (Duoneb 3 Mg/0.5 Mg (3 Ml) Ud) 3 ml IH Q2H PRN PRN Reason: Shortness of Breath Amlodipine Besylate (Norvasc) 10 mg PO DAILY [facility] Last Admin: 01/23/17 09:52 Dose: 10 mg Arformoterol Tartrate (Brovana) 15 mcg IH [id number] [facility] Last Admin: 01/23/17 07:24 Dose: Not Given Benzonatate (Tessalon Perles) 100 mg PO TID [facility] Last Admin: 01/23/17 09:57 Dose: 100 mg Budesonide (Pulmicort Respules) 0.5 mg IH BIDRESP [facility] Last Admin: 01/23/17 07:24 Dose: Not Given Calcium Carbonate (Caltrate) 600 mg PO BID [facility] Last Admin: 01/23/17 09:54 Dose: 600 mg Docusate Sodium (Colace) 100 mg PO TID [facility] Last Admin: 01/23/17 09:56 Dose: 100 mg Doxercalciferol (Hectorol) 0.5 mcg PO DAILY [facility] Last Admin: 01/23/17 09:57 Dose: 0.5 mcg Doxycycline Hyclate (Doryx) 100 mg PO Q12 [facility] PRN Reason: Protocol Last Admin: 01/23/17 09:58 Dose: 100 mg Ergocalciferol (Drisdol 50,000 Intl Units Cap) 1 cap PO Q7D [facility] Fentanyl (Duragesic) 1 patch TD Q72H [facility] Fentanyl (Duragesic) 1 patch TD Q72H [facility] Last Admin: 01/23/17 10:03 Dose: 1 patch Guaifenesin/Codeine Phosphate (Robitussin W/Codeine) 5 ml PO Q6 [facility] Last Admin: 01/23/17 05:16 Dose: 5 ml Heparin Sodium (Porcine) (Heparin) 5,000 units SC 0600,1800 [facility] PRN Reason: Protocol Last Admin: 01/23/17 05:16 Dose: 5,000 units Hydromorphone HCl (Dilaudid) 1 mg IVP Q4H PRN PRN Reason: Pain, severe (8-10) Sodium Chloride (Sodium Chloride 0.9%) 1,000 mls @ 70 mls/hr IV .[id number] [facility] Last Admin: 01/23/17 08:54 Dose: 70 mls/hr Levofloxacin (Levaquin) 500 mg PO QOTHERDAY [facility] Last Admin: 01/22/17 10:20 Dose: 500 mg Megestrol Acetate (Megace) 200 mg PO DAILY [facility] Last Admin: 01/23/17 09:55 Dose: 200 mg Methylprednisolone (Solu-Medrol) 40 mg IVP 0600,1800 [facility] Last Admin: 01/23/17 05:16 Dose: 40 mg Metoprolol Tartrate (Lopressor) 25 mg PO BRKDIN [facility] Last Admin: 01/23/17 08:09 Dose: 25 mg Ondansetron HCl (Zofran Inj) 4 mg IVP Q4H PRN PRN Reason: Nausea/Vomiting Oxycodone HCl (Oxycodone Immediate Release Tab) 10 mg PO Q4 PRN PRN Reason: Pain, severe (8-10) Last Admin: 01/23/17 10:11 Dose: 10 mg Polyethylene Glycol (Miralax) 17 gm PO DAILY [facility] Last Admin: 01/23/17 10:09 Dose: Not Given Pregabalin (Lyrica) 25 mg PO BID [facility] Last Admin: 01/23/17 09:54 Dose: 25 mg Tiotropium [place] (Spiriva) 18 mcg IH DAILY [facility] Last Admin: 01/23/17 09:56 Dose: 18 mcg - Labs Labs: 01/23/17 08:22 01/23/17 08:22 - Constitutional Appears: No Acute Distress - Head Exam Head Exam: ATRAUMATIC - Eye Exam Eye Exam: EOMI, PERRL - ENT Exam ENT Exam: Mucous Membranes Moist - Respiratory Exam Respiratory Exam: Clear to Ausculation Bilateral. absent: Rales, Wheezes - Cardiovascular Exam Cardiovascular Exam: REGULAR RHYTHM, RRR, +S1, +S2 - GI/Abdominal Exam GI & Abdominal Exam: Soft. absent: Distended, Tenderness - Extremities Exam Extremities Exam: absent: Calf Tenderness, Pedal Edema Additional comments: RUE weakness - Neurological Exam Neurological Exam: Alert, Awake, Oriented x3 Assessment and Plan - Assessment and Plan (Free Text) Assessment: 56 M with pmh of past heavy smoking, is currently on chemo (carboplatin and pemetrexed) for stage 4 non-small cell lung carcinoma mets to thoracic spine T1- T3 presents with AC now resolving. UTI with hematuria now resolved. s/p kiney biopsy. Complicated by pneumonia on abx. Transferred to TCU for deconditioning. 1. AC with Hematuria and uti - Cr 2.1--> 1.9 this am resolving - s/p Kidney biopsy - external pathology report reviewed - Bladder & renal US was mainly unremarkable - Nephrology consult appreciated - ID consulted -PO levaquin and doxy 2. Sob - possible pneumonia - ID consulted -PO levaquin and doxy - CT chest shows some L sided multifocal infiltrate and possible pneumonia - Pulm consulted for recs - Robitussin with codeine prn changed to scheduled 3. 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 Hx of stage 4 non-small cell lung ca mets to thoracic spine - On chemo - carboplatin and pemetrexed - Pain control 5.Anemia - Hb of 11.1 this am - cont to monitor Palliative consult appreciated Case and plan was reviewed and discussed with Dr Leary <Lizzie Leary P - Last Filed: 01/24/17 23:18> Objective - Vital Signs/Intake and Output Vital Signs (last 24 hours): Temp Pulse Resp BP Pulse Ox 98.5 F 72 28 H 138/75 100 01/24/17 16:58 01/24/17 16:58 01/24/17 16:58 01/24/17 17:57 01/24/17 16:58 Intake and Output: 01/24/17 01/25/17 18:59 06:59 Intake Total 480 Output Total 900 Balance -420 - Medications Medications: Current Medications Acetaminophen (Tylenol 325mg Tab) 650 mg PO Q4H PRN PRN Reason: Fever >100.4 F Last Admin: 01/22/17 15:01 Dose: 650 mg Albuterol/Ipratropium (Duoneb 3 Mg/0.5 Mg (3 Ml) Ud) 3 ml IH Q2H PRN PRN Reason: Shortness of Breath Amlodipine Besylate (Norvasc) 10 mg PO DAILY [facility] Last Admin: 01/24/17 10:37 Dose: 10 mg Arformoterol Tartrate (Brovana) 15 mcg IH [id number] [facility] Last Admin: 01/24/17 20:13 Dose: Not Given Benzonatate (Tessalon Perles) 100 mg PO TID [facility] Last Admin: 01/24/17 17:59 Dose: 100 mg Budesonide (Pulmicort Respules) 0.5 mg IH BIDRESP [facility] Last Admin: 01/24/17 20:13 Dose: Not Given Calcium Carbonate (Caltrate) 600 mg PO BID [facility] Last Admin: 01/24/17 17:58 Dose: 600 mg Docusate Sodium (Colace) 100 mg PO TID [facility] Last Admin: 01/24/17 17:58 Dose: 100 mg Doxercalciferol (Hectorol) 0.5 mcg PO DAILY [facility] Last Admin: 01/24/17 10:36 Dose: 0.5 mcg Ergocalciferol (Drisdol 50,000 Intl Units Cap) 1 cap PO Q7D [facility] Fentanyl (Duragesic) 1 patch TD Q72H [facility] Last Admin: 01/23/17 13:25 Dose: 1 patch Fentanyl (Duragesic) 1 patch TD Q72H [facility] Last Admin: 01/23/17 12:45 Dose: Not Given Guaifenesin/Codeine Phosphate (Robitussin W/Codeine) 5 ml PO Q6 [facility] Last Admin: 01/24/17 17:58 Dose: Not Given Heparin Sodium (Porcine) (Heparin) 5,000 units SC 0600,1800 [facility] PRN Reason: Protocol Last Admin: 01/24/17 17:58 Dose: 5,000 units Hydromorphone HCl (Dilaudid) 1 mg IVP Q4H PRN PRN Reason: Pain, severe (8-10) Last Admin: 01/24/17 22:09 Dose: 1 mg Sodium Chloride (Sodium Chloride 0.9%) 1,000 mls @ 70 mls/hr IV .[id number] [facility] Last Admin: 01/24/17 22:14 Dose: 70 mls/hr Levofloxacin (Levaquin) 500 mg PO QOTHERDAY [facility] Last Admin: 01/24/17 10:36 Dose: 500 mg Megestrol Acetate (Megace) 200 mg PO DAILY [facility] Last Admin: 01/24/17 10:37 Dose: 200 mg Methylprednisolone (Solu-Medrol) 40 mg IVP 0600,1800 [facility] Last Admin: 01/24/17 17:59 Dose: 40 mg Metoprolol Tartrate (Lopressor) 25 mg PO BRKDIN [facility] Last Admin: 01/24/17 17:57 Dose: 25 mg Ondansetron HCl (Zofran Inj) 4 mg IVP Q4H PRN PRN Reason: Nausea/Vomiting Oxycodone HCl (Oxycodone Immediate Release Tab) 10 mg PO Q4 PRN PRN Reason: Pain, severe (8-10) Last Admin: 01/24/17 20:14 Dose: 10 mg Polyethylene Glycol (Miralax) 17 gm PO DAILY [facility] Last Admin: 01/24/17 10:37 Dose: Not Given Pregabalin (Lyrica) 25 mg PO BID [facility] Last Admin: 01/24/17 17:58 Dose: 25 mg Tiotropium [place] (Spiriva) 18 mcg IH DAILY [facility] Last Admin: 01/24/17 10:37 Dose: 18 mcg - Labs Labs: 01/23/17 08:22 01/23/17 08:22 Attending/Attestation - Attestation I have personally seen and examined this patient.: Yes I have fully participated in the care of the patient.: Yes I have reviewed all pertinent clinical information, including history, physical exam and plan: Yes
--- NOTE | 2017-01-23 11:14 | CP.PCM.CON ---
History of Present Illness - History of Present Illness History of Present Illness: Palliative consult Reason: Goals of care 56 year old seen in [facility] for deconditioning and pain management. 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 Social History: Former heavy smoker, no alcohol or illicit drug use. Lives alone , family is supportive Family History: Sister had uterine cancer Advance care planning: The patient does not have an Advance Directive. Review of Systems: Chronic chest/back/shoulder pain, all other systems reviewed and are negative Past Patient History - Infectious Disease Hx of Infectious Diseases: None - Past Social History Smoking Status: Former Smoker - CARDIAC Hx Cardiac Disorders: No - PULMONARY Hx Chronic Obstructive Pulmonary Disease (COPD): Yes - NEUROLOGICAL Hx Neurological Disorder: No - HEENT Hx HEENT Problems: No - RENAL Hx Chronic Kidney Disease: No - ENDOCRINE/METABOLIC Hx Endocrine Disorders: No - HEMATOLOGICAL/ONCOLOGICAL Hx Blood Disorders: Yes - INTEGUMENTARY Hx Dermatological Problems: No Other/Comment: BILATERAL PITTNG EDEMA T0 FOOT +2 MORE TO RIGHT. - MUSCULOSKELETAL/RHEUMATOLOGICAL Hx Musculoskeletal Disorders: Yes Hx Falls: No Hx Unsteady Gait: Yes - GASTROINTESTINAL Hx Gastrointestinal Disorders: No - GENITOURINARY/GYNECOLOGICAL Hx Genitourinary Disorders: Yes Hx Hematuria: Yes (01-14-17) - PSYCHIATRIC Hx Psychophysiologic Disorder: Yes Hx Depression: Yes - SURGICAL HISTORY Hx Surgeries: Yes Hx Musculoskeletal Surgery: Yes (plate placed in back) Hx Orthopedic Surgery: Yes (R shoulder) - ANESTHESIA Hx Anesthesia: Yes Meds Allergies/Adverse Reactions: Allergies Allergy/AdvReac Type Severity Reaction Status Date / Time Penicillins Allergy ANAPHYLAXIS Verified 01/22/17 03:17 - Medications Medications: Current Medications Acetaminophen (Tylenol 325mg Tab) 650 mg PO Q4H PRN PRN Reason: Fever >100.4 F Last Admin: 01/22/17 15:01 Dose: 650 mg Albuterol/Ipratropium (Duoneb 3 Mg/0.5 Mg (3 Ml) Ud) 3 ml IH Q2H PRN PRN Reason: Shortness of Breath Amlodipine Besylate (Norvasc) 10 mg PO DAILY [facility] Last Admin: 01/23/17 09:52 Dose: 10 mg Arformoterol Tartrate (Brovana) 15 mcg IH [id number] [facility] Last Admin: 01/23/17 07:24 Dose: Not Given Benzonatate (Tessalon Perles) 100 mg PO TID [facility] Last Admin: 01/23/17 09:57 Dose: 100 mg Budesonide (Pulmicort Respules) 0.5 mg IH BIDRESP [facility] Last Admin: 01/23/17 07:24 Dose: Not Given Calcium Carbonate (Caltrate) 600 mg PO BID [facility] Last Admin: 01/23/17 09:54 Dose: 600 mg Docusate Sodium (Colace) 100 mg PO TID [facility] Last Admin: 01/23/17 09:56 Dose: 100 mg Doxercalciferol (Hectorol) 0.5 mcg PO DAILY [facility] Last Admin: 01/23/17 09:57 Dose: 0.5 mcg Doxycycline Hyclate (Doryx) 100 mg PO Q12 [facility] PRN Reason: Protocol Last Admin: 01/23/17 09:58 Dose: 100 mg Ergocalciferol (Drisdol 50,000 Intl Units Cap) 1 cap PO Q7D [facility] Fentanyl (Duragesic) 1 patch TD Q72H [facility] Fentanyl (Duragesic) 1 patch TD Q72H [facility] Last Admin: 01/23/17 10:03 Dose: 1 patch Guaifenesin/Codeine Phosphate (Robitussin W/Codeine) 5 ml PO Q6 [facility] Last Admin: 01/23/17 05:16 Dose: 5 ml Heparin Sodium (Porcine) (Heparin) 5,000 units SC 0600,1800 [facility] PRN Reason: Protocol Last Admin: 01/23/17 05:16 Dose: 5,000 units Hydromorphone HCl (Dilaudid) 1 mg IVP Q4H PRN PRN Reason: Pain, severe (8-10) Sodium Chloride (Sodium Chloride 0.9%) 1,000 mls @ 70 mls/hr IV .[id number] [facility] Last Admin: 01/23/17 08:54 Dose: 70 mls/hr Levofloxacin (Levaquin) 500 mg PO QOTHERDAY [facility] Last Admin: 01/22/17 10:20 Dose: 500 mg Megestrol Acetate (Megace) 200 mg PO DAILY [facility] Last Admin: 01/23/17 09:55 Dose: 200 mg Methylprednisolone (Solu-Medrol) 40 mg IVP 0600,1800 [facility] Last Admin: 01/23/17 05:16 Dose: 40 mg Metoprolol Tartrate (Lopressor) 25 mg PO BRKDIN [facility] Last Admin: 01/23/17 08:09 Dose: 25 mg Ondansetron HCl (Zofran Inj) 4 mg IVP Q4H PRN PRN Reason: Nausea/Vomiting Oxycodone HCl (Oxycodone Immediate Release Tab) 10 mg PO Q4 PRN PRN Reason: Pain, severe (8-10) Last Admin: 01/23/17 10:11 Dose: 10 mg Polyethylene Glycol (Miralax) 17 gm PO DAILY [facility] Last Admin: 01/23/17 10:09 Dose: Not Given Pregabalin (Lyrica) 25 mg PO BID [facility] Last Admin: 01/23/17 09:54 Dose: 25 mg Tiotropium [place] (Spiriva) 18 mcg IH DAILY [facility] Last Admin: 01/23/17 09:56 Dose: 18 mcg Results - Vital Signs Recent Vital Signs: Last Vital Signs Temp 97.3 F L 01/23/17 10:00 Pulse 70 01/23/17 10:00 Resp 18 01/23/17 10:00 BP 162/95 H 01/23/17 10:00 Pulse Ox 94 L 01/23/17 10:00 - Labs Result Diagrams: 01/23/17 08:22 01/23/17 08:22 Labs: Laboratory Results - last 24 hr 01/23/17 01/23/17 08:22 08:22 WBC 16.5 H RBC 3.69 Hgb 11.1 L Hct 33.0 L MCV 89.4 MCH 30.1 MCHC 33.6 RDW 15.9 H Plt Count 96 L MPV 10.0 Gran % 94.3 H Lymph % (Auto) 3.6 L [place] % (Auto) 2.1 Eos % (Auto) 0.0 L Baso % (Auto) 0.0 Gran # 15.53 H Lymph # 0.6 L [place] # 0.3 Eos # 0.0 Baso # 0.00 Neutrophils % (Manual) 95 H Lymphocytes % (Manual) 3 L Monocytes % (Manual) 2 Toxic Granulation Slight Platelet Evaluation Low Hypochromasia Slight Anisocytosis (manual) Slight Sodium 142 Potassium 3.5 L Chloride 108 H Carbon Dioxide 21 Anion Gap 17 BUN 33 H Creatinine 1.9 H Est GFR ( Amer) 44 Est GFR (Non-Af Amer) 37 Random Glucose 140 H Calcium 7.4 L Total Bilirubin 0.6 AST 36 ALT 32 Alkaline Phosphatase 99 Total Protein 6.2 Albumin 3.1 Globulin 3.1 Albumin/Globulin Ratio 1.0 L Assessment & Plan - Assessment and Plan (Free Text) Assessment: 56 year old male with history of metastatic lung cancer admitted with hematuria, anemia, deconditioning, intractable pain. Patient is alert /oriented. States his pain is controlled a s long as he receives his medication on time. His appetite is fair. He is able to ambulate independently. He has no other complaints and states he would like to go home. The patient and I have had previous discussion regarding goals of care and advance care planning. The patient intends to pursue all available treatment options. He is not interested in hospice care. He understands the ramifications/ burdens of aggressive resuscitation and wants to remain a full code. Goals of care/advance care planning conversation, 20 minutes Plan: All reports,medications reviewed. No new recommendations at this time Palliative support
--- NOTE | 2017-01-23 11:25 | CP.PCM.PN ---
Subjective - Date & Time of Evaluation Date of Evaluation: 01/23/17 Time of Evaluation: 09:50 - Subjective Subjective: Comfortable in bed, not in distress, afebrile. Objective - Vital Signs/Intake and Output Vital Signs (last 24 hours): Temp Pulse Resp BP Pulse Ox 97.3 F L 70 18 162/95 H 94 L 01/23/17 10:00 01/23/17 10:00 01/23/17 10:00 01/23/17 10:00 01/23/17 10:00 Intake and Output: 01/23/17 01/23/17 06:59 18:59 Intake Total 600 840 Output Total 1000 2000 Balance -400 -1160 - Medications Medications: Current Medications Acetaminophen (Tylenol 325mg Tab) 650 mg PO Q4H PRN PRN Reason: Fever >100.4 F Last Admin: 01/22/17 15:01 Dose: 650 mg Albuterol/Ipratropium (Duoneb 3 Mg/0.5 Mg (3 Ml) Ud) 3 ml IH Q2H PRN PRN Reason: Shortness of Breath Amlodipine Besylate (Norvasc) 10 mg PO DAILY [facility] Last Admin: 01/23/17 09:52 Dose: 10 mg Arformoterol Tartrate (Brovana) 15 mcg IH [id number] [facility] Last Admin: 01/23/17 07:24 Dose: Not Given Benzonatate (Tessalon Perles) 100 mg PO TID [facility] Last Admin: 01/23/17 09:57 Dose: 100 mg Budesonide (Pulmicort Respules) 0.5 mg IH BIDRESP [facility] Last Admin: 01/23/17 07:24 Dose: Not Given Calcium Carbonate (Caltrate) 600 mg PO BID [facility] Last Admin: 01/23/17 09:54 Dose: 600 mg Docusate Sodium (Colace) 100 mg PO TID [facility] Last Admin: 01/23/17 09:56 Dose: 100 mg Doxercalciferol (Hectorol) 0.5 mcg PO DAILY [facility] Last Admin: 01/23/17 09:57 Dose: 0.5 mcg Ergocalciferol (Drisdol 50,000 Intl Units Cap) 1 cap PO Q7D [facility] Fentanyl (Duragesic) 1 patch TD Q72H [facility] Fentanyl (Duragesic) 1 patch TD Q72H [facility] Last Admin: 01/23/17 10:03 Dose: 1 patch Guaifenesin/Codeine Phosphate (Robitussin W/Codeine) 5 ml PO Q6 [facility] Last Admin: 01/23/17 05:16 Dose: 5 ml Heparin Sodium (Porcine) (Heparin) 5,000 units SC 0600,1800 [facility] PRN Reason: Protocol Last Admin: 01/23/17 05:16 Dose: 5,000 units Hydromorphone HCl (Dilaudid) 1 mg IVP Q4H PRN PRN Reason: Pain, severe (8-10) Sodium Chloride (Sodium Chloride 0.9%) 1,000 mls @ 70 mls/hr IV .[id number] [facility] Last Admin: 01/23/17 08:54 Dose: 70 mls/hr Levofloxacin (Levaquin) 500 mg PO QOTHERDAY [facility] Last Admin: 01/22/17 10:20 Dose: 500 mg Megestrol Acetate (Megace) 200 mg PO DAILY [facility] Last Admin: 01/23/17 09:55 Dose: 200 mg Methylprednisolone (Solu-Medrol) 40 mg IVP 0600,1800 [facility] Last Admin: 01/23/17 05:16 Dose: 40 mg Metoprolol Tartrate (Lopressor) 25 mg PO BRKDIN [facility] Last Admin: 01/23/17 08:09 Dose: 25 mg Ondansetron HCl (Zofran Inj) 4 mg IVP Q4H PRN PRN Reason: Nausea/Vomiting Oxycodone HCl (Oxycodone Immediate Release Tab) 10 mg PO Q4 PRN PRN Reason: Pain, severe (8-10) Last Admin: 01/23/17 10:11 Dose: 10 mg Polyethylene Glycol (Miralax) 17 gm PO DAILY [facility] Last Admin: 01/23/17 10:09 Dose: Not Given Pregabalin (Lyrica) 25 mg PO BID [facility] Last Admin: 01/23/17 09:54 Dose: 25 mg Tiotropium [place] (Spiriva) 18 mcg IH DAILY [facility] Last Admin: 01/23/17 09:56 Dose: 18 mcg - Labs Labs: 01/23/17 08:22 01/23/17 08:22 - Constitutional Appears: Non-toxic, No Acute Distress - Head Exam Head Exam: NORMAL INSPECTION - ENT Exam ENT Exam: Mucous Membranes Moist - Neck Exam Neck Exam: absent: Lymphadenopathy, Meningismus - Respiratory Exam Respiratory Exam: Decreased Breath Sounds - Cardiovascular Exam Cardiovascular Exam: +S1, +S2 - GI/Abdominal Exam GI & Abdominal Exam: Soft. absent: Tenderness Assessment and Plan - Assessment and Plan (Free Text) Plan: Assessment Hematuria and urinary frequency, probably UTI with Proteus, clinically improving lung infiltrates on CT chest cannot R/O healthcare-associated pneumonia, clinically improving Right lung mass, which is poorly-differentiated non-small cell lung cancer on pathology S/P biopsy 10/16/2016 on radiotherapy and chemotherapy COPD Plan continue PO Levaquin (day 7 total antibiotics); should be able to discontinue antibiotics in the next 24-48 hours will continue to monitor clinically biopsy results of the kidney showing tubular necrosis and IgA nephropathy (no BK virus noted)
[2017-01-23] MEDS ORDERED: Potassium Chloride 20 mEq ER Tab PO ONE (13:20)
[2017-01-23] MEDS: HYDROmorphone 1 mg/ml ISec IVP PRN ×3 (13:34→23:00)
--- NOTE | 2017-01-23 22:32 | PN ---
PULMONARY PROGRESS NOTE DATE: 01/20/2017 SUBJECTIVE: He is lying in the bed 45 degree, still has a right-sided chest pain on [employer] [address] [employer]. Mild cough. No nausea, no vomiting, no diarrhea. No leg pain or leg swelling. PHYSICAL EXAMINATION: GENERAL: In no acute distress. VITAL SIGNS: Temperature is 98, heart rate is 86, respiratory rate is 16, blood pressure is 164/87, pulse ox 94% on room air. HEENT: Small oral cavity. NECK: Supple. No JVD. LUNGS: Fair airflow with rhonchi. HEART: S1 and S2. ABDOMEN: Soft, nontender. No organomegaly. EXTREMITIES: No edema. NEUROLOGIC: Awake, alert and follows simple commands. MEDICATIONS: Brovana 15 mcg inhale twice a day, calcium carbonate 600 mg twice a day, Colace 100 mg three times a day, Dilaudid 1 mg q.4h. p.r.n., vitamin D 50,000 unit subcutaneous every 7 days, DuoNeb q.2h. p.r.n., Duragesic patch q.72h., heparin 5000 units subcutaneous q.12h., Levaquin 5000 unit and Friday, metoprolol tartrate 25 mg twice a day, Lyrica 25 mg twice a day, Megace 200 mg daily, MiraLAX 17 gram daily, Norvasc 10 mg daily, Pulmicort inhale twice a day,Robitussin with Codeine 5 mL q.6h. p.r.n., IV fluid with normal saline 70 mL per hour, Solu-Medrol 40 mg q.12h., Spiriva one capsule inhale daily, Tessalon Perles 100 mg 3 times a day, Tylenol p.r.n., Zofran p.r.n. basis. LABORATORY DATA: Shows hemoglobin 11.1, hematocrit 33.0, WBC is 18.5, platelet is 96. Sodium 142, potassium 3.5, chloride 185, carbonate 21, BUN 33, creatinine 1.9, glucose 140. Calcium is 7.4, AST 36, ALT 32, alkaline phosphatase is 99, albumin is 3.1. IMPRESSION AND PLAN: Metastatic lung cancer, chronic obstructive lung disease, resolving pneumonia, urinary tract infection, renal failure, which is slowly improving chronic vein syndrome. Continue Dilaudid, antibiotics, bronchodilator, gastric prophylaxis, SCD to lower extremities. Spoke to family, being followed by palliative care. The above social media marketer requests sign of the paper for possible home bed. Elisabet Pelaez MD
[2017-01-24] MEDS: HYDROmorphone 1 mg/ml ISec IVP PRN ×5 (03:18→22:09)
[2017-01-24] MEDS: guaiFENesin-Codeine 100-10mg/5ml Syrup (5 ml) UD PO SCH ×4 (03:29→17:58)
[2017-01-24] MEDS: MethylPREDNISolone 40 mg Vial IVP SCH ×2 (05:41→17:59)
[2017-01-24] MEDS: Sodium Chloride 0.9% 1,000 ML IV SCH ×2 (05:42→22:14)
[2017-01-24] MEDS: oxyCODONE 10 mg Immediate Release Tab PO PRN ×4 (05:43→20:14)
[2017-01-24] MEDS: Arformoterol 15 mcg/2 ml Inh Sol IH SCH ×2 (07:28→20:13)
[2017-01-24] MEDS: Budesonide 0.5 mg/2 ml Inhal Susp UD IH SCH ×2 (07:28→20:13)
[2017-01-24] MEDS: levoFLOXacin 500 MG TAB PO SCH (10:36)
[2017-01-24] MEDS: Megestrol Acetate 40 mg/ml Cup PO SCH (10:37)
[2017-01-24] MEDS: POLYETHYLENE GLYCOL 3350 17 GM/Dose PACKET PO SCH (10:37)
[2017-01-24] MEDS: Tiotropium 18 mcg Cap For Inhalation IH SCH (10:37)
--- NOTE | 2017-01-24 15:35 | CP.PCM.PN ---
<Justice Nelson - Last Filed: 01/24/17 15:25> Subjective - Date & Time of Evaluation Date of Evaluation: 01/24/17 Time of Evaluation: 07:55 - Subjective Subjective: Heme/onc note for Dr Leary: Pt seen and examined at bedside. No acute events overnight.RUE weakness and pain. Doing well with PT. Good apettite . Denies any f/c, n/v, cp, abd pain, bm changes. Objective - Vital Signs/Intake and Output Vital Signs (last 24 hours): Temp Pulse Resp BP Pulse Ox 97.3 F L 78 18 156/95 H 98 01/24/17 11:16 01/24/17 11:16 01/24/17 11:16 01/24/17 11:16 01/24/17 11:16 - Medications Medications: Current Medications Acetaminophen (Tylenol 325mg Tab) 650 mg PO Q4H PRN PRN Reason: Fever >100.4 F Last Admin: 01/22/17 15:01 Dose: 650 mg Albuterol/Ipratropium (Duoneb 3 Mg/0.5 Mg (3 Ml) Ud) 3 ml IH Q2H PRN PRN Reason: Shortness of Breath Amlodipine Besylate (Norvasc) 10 mg PO DAILY [facility] Last Admin: 01/24/17 10:37 Dose: 10 mg Arformoterol Tartrate (Brovana) 15 mcg IH [id number] [facility] Last Admin: 01/24/17 07:28 Dose: Not Given Benzonatate (Tessalon Perles) 100 mg PO TID [facility] Last Admin: 01/24/17 14:14 Dose: Not Given Budesonide (Pulmicort Respules) 0.5 mg IH BIDRESP [facility] Last Admin: 01/24/17 07:28 Dose: Not Given Calcium Carbonate (Caltrate) 600 mg PO BID [facility] Last Admin: 01/24/17 10:35 Dose: 600 mg Docusate Sodium (Colace) 100 mg PO TID [facility] Last Admin: 01/24/17 13:34 Dose: Not Given Doxercalciferol (Hectorol) 0.5 mcg PO DAILY [facility] Last Admin: 01/24/17 10:36 Dose: 0.5 mcg Ergocalciferol (Drisdol 50,000 Intl Units Cap) 1 cap PO Q7D [facility] Fentanyl (Duragesic) 1 patch TD Q72H [facility] Last Admin: 01/23/17 13:25 Dose: 1 patch Fentanyl (Duragesic) 1 patch TD Q72H [facility] Last Admin: 01/23/17 12:45 Dose: Not Given Guaifenesin/Codeine Phosphate (Robitussin W/Codeine) 5 ml PO Q6 [facility] Last Admin: 01/24/17 13:11 Dose: 5 ml Heparin Sodium (Porcine) (Heparin) 5,000 units SC 0600,1800 [facility] PRN Reason: Protocol Last Admin: 01/24/17 07:03 Dose: 5,000 units Hydromorphone HCl (Dilaudid) 1 mg IVP Q4H PRN PRN Reason: Pain, severe (8-10) Last Admin: 01/24/17 13:12 Dose: 1 mg Sodium Chloride (Sodium Chloride 0.9%) 1,000 mls @ 70 mls/hr IV .[id number] [facility] Last Admin: 01/24/17 05:42 Dose: 70 mls/hr Levofloxacin (Levaquin) 500 mg PO QOTHERDAY [facility] Last Admin: 01/24/17 10:36 Dose: 500 mg Megestrol Acetate (Megace) 200 mg PO DAILY [facility] Last Admin: 01/24/17 10:37 Dose: 200 mg Methylprednisolone (Solu-Medrol) 40 mg IVP 0600,1800 [facility] Last Admin: 01/24/17 05:41 Dose: 40 mg Metoprolol Tartrate (Lopressor) 25 mg PO BRKDIN [facility] Last Admin: 01/24/17 08:57 Dose: 25 mg Ondansetron HCl (Zofran Inj) 4 mg IVP Q4H PRN PRN Reason: Nausea/Vomiting Oxycodone HCl (Oxycodone Immediate Release Tab) 10 mg PO Q4 PRN PRN Reason: Pain, severe (8-10) Last Admin: 01/24/17 15:08 Dose: 10 mg Polyethylene Glycol (Miralax) 17 gm PO DAILY [facility] Last Admin: 01/24/17 10:37 Dose: Not Given Pregabalin (Lyrica) 25 mg PO BID [facility] Last Admin: 01/24/17 10:41 Dose: 25 mg Tiotropium [place] (Spiriva) 18 mcg IH DAILY [facility] Last Admin: 01/24/17 10:37 Dose: 18 mcg - Labs Labs: 01/23/17 08:22 01/23/17 08:22 - Constitutional Appears: No Acute Distress - Head Exam Head Exam: ATRAUMATIC, NORMOCEPHALIC - Eye Exam Eye Exam: EOMI, PERRL - ENT Exam ENT Exam: Mucous Membranes Moist - Respiratory Exam Respiratory Exam: Clear to Ausculation Bilateral. absent: Rales, Wheezes - Cardiovascular Exam Cardiovascular Exam: REGULAR RHYTHM, RRR, +S1, +S2 - GI/Abdominal Exam GI & Abdominal Exam: Soft. 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 UTI with hematuria now resolved. s/p kiney biopsy. Complicated by pneumonia on abx. Transferred to TCU for deconditioning. 1. AC with Hematuria and uti - Cr 2.1--> 1.9 pending today labs - s/p Kidney biopsy - external pathology report reviewed - Bladder & renal US was mainly unremarkable - Nephrology consult appreciated 2. Sob - possible pneumonia - ID consulted -PO levaquin and doxy - CT chest shows some L sided multifocal infiltrate and possible pneumonia - Pulm consulted for recs - Robitussin with codeine prn changed to scheduled 3. RUE pain - Cont Dilaudid 1mg Q4H prn - Neuro consulted for recs- pt refused decompressive sx in the past - rec Lyrica 75m BID for neuropathic pain - Pt refused MRI of cervical and thoracic spine to check for progression of dx - Pain management consult as outpatient 4. Hx of stage 4 non-small cell lung ca mets to thoracic spine - To follow up as an outpatient - to consider if candidate of Keytruda - On chemo - carboplatin and pemetrexed - Pain control 5.Anemia - Hb of 11.1 - pending today labs - cont to monitor Palliative consult appreciated - pt denies hospice and wants all aggressive tx t be done. SW- regarding getting a home bed. Case and plan was reviewed and discussed with Dr Leary <Lizzie Leary P - Last Filed: 01/24/17 22:44> Objective - Vital Signs/Intake and Output Vital Signs (last 24 hours): Temp Pulse Resp BP Pulse Ox 98.5 F 72 28 H 138/75 100 01/24/17 16:58 01/24/17 16:58 01/24/17 16:58 01/24/17 17:57 01/24/17 16:58 Intake and Output: 01/24/17 01/25/17 18:59 06:59 Intake Total 480 Output Total 900 Balance -420 - Medications Medications: Current Medications Acetaminophen (Tylenol 325mg Tab) 650 mg PO Q4H PRN PRN Reason: Fever >100.4 F Last Admin: 01/22/17 15:01 Dose: 650 mg Albuterol/Ipratropium (Duoneb 3 Mg/0.5 Mg (3 Ml) Ud) 3 ml IH Q2H PRN PRN Reason: Shortness of Breath Amlodipine Besylate (Norvasc) 10 mg PO DAILY [facility] Last Admin: 01/24/17 10:37 Dose: 10 mg Arformoterol Tartrate (Brovana) 15 mcg IH [id number] [facility] Last Admin: 01/24/17 20:13 Dose: Not Given Benzonatate (Tessalon Perles) 100 mg PO TID [facility] Last Admin: 01/24/17 17:59 Dose: 100 mg Budesonide (Pulmicort Respules) 0.5 mg IH BIDRESP [facility] Last Admin: 01/24/17 20:13 Dose: Not Given Calcium Carbonate (Caltrate) 600 mg PO BID [facility] Last Admin: 01/24/17 17:58 Dose: 600 mg Docusate Sodium (Colace) 100 mg PO TID [facility] Last Admin: 01/24/17 17:58 Dose: 100 mg Doxercalciferol (Hectorol) 0.5 mcg PO DAILY [facility] Last Admin: 01/24/17 10:36 Dose: 0.5 mcg Ergocalciferol (Drisdol 50,000 Intl Units Cap) 1 cap PO Q7D [facility] Fentanyl (Duragesic) 1 patch TD Q72H [facility] Last Admin: 01/23/17 13:25 Dose: 1 patch Fentanyl (Duragesic) 1 patch TD Q72H [facility] Last Admin: 01/23/17 12:45 Dose: Not Given Guaifenesin/Codeine Phosphate (Robitussin W/Codeine) 5 ml PO Q6 [facility] Last Admin: 01/24/17 17:58 Dose: Not Given Heparin Sodium (Porcine) (Heparin) 5,000 units SC 0600,1800 [facility] PRN Reason: Protocol Last Admin: 01/24/17 17:58 Dose: 5,000 units Hydromorphone HCl (Dilaudid) 1 mg IVP Q4H PRN PRN Reason: Pain, severe (8-10) Last Admin: 01/24/17 22:09 Dose: 1 mg Sodium Chloride (Sodium Chloride 0.9%) 1,000 mls @ 70 mls/hr IV .[id number] [facility] Last Admin: 01/24/17 22:14 Dose: 70 mls/hr Levofloxacin (Levaquin) 500 mg PO QOTHERDAY [facility] Last Admin: 01/24/17 10:36 Dose: 500 mg Megestrol Acetate (Megace) 200 mg PO DAILY [facility] Last Admin: 01/24/17 10:37 Dose: 200 mg Methylprednisolone (Solu-Medrol) 40 mg IVP 0600,1800 [facility] Last Admin: 01/24/17 17:59 Dose: 40 mg Metoprolol Tartrate (Lopressor) 25 mg PO BRKDIN [facility] Last Admin: 01/24/17 17:57 Dose: 25 mg Ondansetron HCl (Zofran Inj) 4 mg IVP Q4H PRN PRN Reason: Nausea/Vomiting Oxycodone HCl (Oxycodone Immediate Release Tab) 10 mg PO Q4 PRN PRN Reason: Pain, severe (8-10) Last Admin: 01/24/17 20:14 Dose: 10 mg Polyethylene Glycol (Miralax) 17 gm PO DAILY [facility] Last Admin: 01/24/17 10:37 Dose: Not Given Pregabalin (Lyrica) 25 mg PO BID [facility] Last Admin: 01/24/17 17:58 Dose: 25 mg Tiotropium [place] (Spiriva) 18 mcg IH DAILY [facility] Last Admin: 01/24/17 10:37 Dose: 18 mcg - Labs Labs: 01/23/17 08:22 01/23/17 08:22 Attending/Attestation - Attestation I have personally seen and examined this patient.: Yes I have fully participated in the care of the patient.: Yes I have reviewed all pertinent clinical information, including history, physical exam and plan: Yes
[2017-01-25] MEDS: guaiFENesin-Codeine 100-10mg/5ml Syrup (5 ml) UD PO SCH ×4 (00:05→17:30)
[2017-01-25] MEDS: oxyCODONE 10 mg Immediate Release Tab PO PRN ×6 (00:34→23:57)
[2017-01-25] MEDS: HYDROmorphone 1 mg/ml ISec IVP PRN ×6 (02:08→22:12)
[2017-01-25] MEDS ORDERED: HYDROmorphone 1 mg/ml ISec IVP ONE (02:15)
--- NOTE | 2017-01-25 02:47 | PN ---
PULMONARY PROGRESS NOTE DATE: 01/24/2017 REFERRING PHYSICIAN: Dr. Fermin. SUBJECTIVE: He is lying on the bed, sleepy, arousable, has right upper shoulder, right upper chest pain. No nausea, no vomiting, no diarrhea. No leg pain or leg swelling. PHYSICAL EXAMINATION GENERAL: In no acute distress. VITAL SIGNS: Temperature is 98, heart rate is 72, respiratory rate is 20, blood pressure is 138/75 and pulse ox 98% on 2 liters nasal cannula. HEENT: Moist mucous membranes. Also thrush noted. NECK: Supple. CHEST: Right upper chest area tender to touch. LUNGS: Fair airflow. HEART: S1 and S2. ABDOMEN: Soft and nontender. No organomegaly. EXTREMITIES: No edema. NEUROLOGIC: Awake, alert and follows simple commands. MEDICATIONS: He is on Brovana 15 mcg inhaled twice a day, calcium carbonate 600 mg twice a day, Colace 100 mg three times a day, Dilaudid 1 mg q. 4 hour p.r.n., vitamin D 50,000 unit q. 7 days, DuoNeb q. 2 hour p.r.n., Duragesic patch q. 72 hour, heparin 5000 units subcutaneous q. 12 hours, Levaquin 500 mg and Friday, metoprolol tartrate 25 mg twice a day, Lyrica 25 mg twice a day, Megace 200 mg daily, MiraLax 17 gram daily, Norvasc 10 mg daily, oxycodone immediate release 10 mg q. 4 hours p.r.n., Pulmicort inhaled twice a day, Robitussin with codeine 5 mL q. 6 hours, IV fluid normal saline 70 mL/hour, Solu-medrol 40 mg q. 12 hour, Spiriva 1 capsule inhaled daily, Tessalon Perles 100 mg 3 times a day, Tylenol p.r.n. basis, Zofran p.r.n. basis. LABORATORY DATA: No new lab is available since yesterday. ASSESSMENT AND PLAN: Metastatic lung cancer, chronic obstructive lung disease, resolving pneumonia, urinary tract infection, renal failure, which is improving. I spoke to family at bedside, all the questions answered. Continue bronchodilator, keep the head 45 degree, antibiotics as per infectious disease, gastric prophylaxis, sequential compression device to lower extremity. Overall poor prognosis. Continue supportive care, being followed by oncology. Thank you and we will follow with you. Elisabet Pelaez MD
--- NOTE | 2017-01-25 03:31 | PN ---
DATE: 01/24/2017 SUBJECTIVE: The patient is in bed, in no acute distress, nontoxic. PHYSICAL EXAMINATION VITAL SIGNS: Temperature is 98, blood pressure is 138/70 and respiratory rate is 16. HEENT: Unremarkable. NECK: Supple. LUNGS: Decreased breath sounds. HEART: Normal S1 and S2. ABDOMEN: Soft. LABORATORY DATA: Reveal the patient has white count of 16,500 with BUN of 33 and creatinine of 1.9. ASSESSMENT AND PLAN: A 56-year-old male with a lung infiltrate on CAT scan, cannot rule out healthcare-associated pneumonia, right lung mass, poorly-differentiated non-small cell, on p.o. Levaquin day #8. Review of orders reveals the patient to be on p.o. Levaquin, complete therapy. Jonah Thurman MD
[2017-01-25] MEDS: MethylPREDNISolone 40 mg Vial IVP SCH ×2 (06:23→17:30)
[2017-01-25] MEDS: Budesonide 0.5 mg/2 ml Inhal Susp UD IH SCH ×2 (07:26→20:26)
[2017-01-25] MEDS: Arformoterol 15 mcg/2 ml Inh Sol IH SCH ×2 (07:26→20:26)
[2017-01-25] MEDS: Tiotropium 18 mcg Cap For Inhalation IH SCH (10:02)
[2017-01-25] MEDS: POLYETHYLENE GLYCOL 3350 17 GM/Dose PACKET PO SCH (10:03)
[2017-01-25] MEDS: Megestrol Acetate 40 mg/ml Cup PO SCH (10:03)
[2017-01-25] MEDS: Sodium Chloride 0.9% 1,000 ML IV SCH (12:20)
[2017-01-25 19:31] LABS: PH,URINE 7.5 (4.7-8.0); URINE BILIRUBIN NEGATIVE (NEGATIVE); URINE BLOOD LARGE (NEGATIVE); URINE GLUCOSE (UA) NEGATIVE (NEGATIVE); URINE KETONE NEGATIVE (NEGATIVE); URINE LEUKOCYTE ESTERASE NEGATIVE Leu/uL (NEGATIVE); URINE PROTEIN 100 mg/dL (<30 mg/dL); URINE UROBILINOGEN 0.2 E.U./dL (<1 E.U./dL)
[2017-01-25 19:33] LABS: URINE APPEARANCE CLEAR (CLEAR); URINE COLOR LIGHT RED (YELLOW)
--- NOTE | 2017-01-25 19:35 | PN ---
DATE: 01/25/2017 PULMONARY PROGRESS NOTE REFERRING PHYSICIAN: Dr. Fermin. SUBJECTIVE: She is lying in the bed, head at 45 degrees. Still has right shoulder and right upper chest pain, mild cough, no shortness of breath. No nausea, no vomiting, no diarrhea. No leg pain, no leg swelling. OBJECTIVE: GENERAL: In no acute distress. VITAL SIGNS: Temperature is 98, heart rate is 86, respiratory rate is 20, blood pressure 174/81, and pulse ox is 96% on 2 L nasal cannula. HEENT: Moist mucous membranes. No oral thrush. NECK: Supple. No JVD. LUNGS: Has fair airflow with few rhonchi. HEART: S1 and S2. ABDOMEN: Soft and nontender. No organomegaly. EXTREMITIES: There is no edema. NEUROLOGIC: Awake, alert, and follows simple commands. MEDICATIONS: He is on calcium carbonate 600 mg twice a day, Colace 100 mg three times a day, Dilaudid 1 mg q.4 hours p.r.n., vitamin D one capsule q.7 days, DuoNeb q.2 hours p.r.n., Duragesic q.72 hours, fentanyl 1 patch q.72 hours, heparin 5000 units subcutaneous q.12 hours, Levaquin 500 mg and Friday, metoprolol tartrate 25 mg twice a daily, Lyrica 25 mg twice a day, Megace 200 mg daily, MiraLax 17 gram daily, Norvasc 10 mg daily, oxycodone immediate release 10 mg q.4 hours p.r.n., Pulmicort inhaled twice a day, Robitussin with Codeine 5 mL q.6 hours, Solu-Medrol 40 mg q.12 hours, Spiriva 1 capsule inhaled daily, Tessalon Perles 100 mg three times a day, Tylenol p.r.n. basis, Zofran p.r.n. basis. LABORATORY DATA: Reviewed, noted no new lab is available since yesterday. IMPRESSION AND PLAN: Metastatic lung cancer, chronic obstructive lung disease, resolving pneumonia, urinary tract infection, renal failure is improving; chronic pain syndrome. We will discontinue IV fluids and see if blood pressure can improve. Renal function slowly is improving. Spoke to therapist. Upon discharge, the patient will need hospital bed because of two reasons; one, he has a chronic pain, need frequent repositioning; second, also has a chronic obstructive pulmonary disease, need to keep head elevated to above 45 degrees. Continue bronchodilator, pain management, gastric prophylaxis, deep vein thrombosis prophylaxis. Thank you and we will follow with you. Elisabet Pelaez MD
[2017-01-25 19:37] LABS: URINE RBC TNTC /hpf (0-2)
[2017-01-26] MEDS: guaiFENesin-Codeine 100-10mg/5ml Syrup (5 ml) UD PO SCH ×5 (01:14→23:23)
--- NOTE | 2017-01-26 01:43 | PN ---
DATE: 01/25/2017 SUBJECTIVE: The patient is in bed, in no acute distress, nontoxic. PHYSICAL EXAMINATION VITAL SIGNS: Temperature is 98, blood pressure is 180/90, respiratory rate 20 and heart rate of 86. HEENT: Unremarkable. NECK: Supple. LUNGS: Decreased breath sounds. HEART: Normal S1 and S2. ABDOMEN: Soft and nontender. LABORATORY DATA: Reveals the patient's white count of 16,500. MEDICATIONS: Review of medication reveal the patient to be on Levaquin and Solu-Medrol. ASSESSMENT AND PLAN: This is a 56-year-old male with lung infiltrate on CAT scan, healthcare-associated pneumonia, right lung mass, poorly differentiated non-small cell, day #9 of p.o. Levaquin. We will discontinue the Levaquin in next 24 hours. Of note is the QTc of 408 on EKG. Jonah Thurman MD
[2017-01-26] MEDS: HYDROmorphone 1 mg/ml ISec IVP PRN ×6 (02:56→23:22)
[2017-01-26] MEDS: MethylPREDNISolone 40 mg Vial IVP SCH ×2 (06:22→17:14)
[2017-01-26 07:08] LABS: HEMATOCRIT 34.7 % (42.0-52.0); MEAN CELL VOLUME 90.1 fl (80.0-105.0); MEAN CORPUSCULAR HEMOGLOBIN 29.6 pg (25.0-35.0); MEAN CORPUSCULAR HGB CONC 32.9 g/dl (31.0-37.0); RED CELL DISTRIBUTION WIDTH 16.7 % (11.5-14.5); WHITE BLOOD COUNT 11.9 10^3/ul (4.5-11.0)
[2017-01-26] MEDS ORDERED: Lidocaine 2% Jelly (Uro-Jet) TOP PRN (07:16)
[2017-01-26 07:19] LABS: BILIRUBIN,TOTAL 0.6 mg/dL (0.2-1.3); CALCIUM 8.2 mg/dL (8.4-10.5); POTASSIUM 3.3 mmol/L (3.6-5.0); TOTAL PROTEIN 6.1 g/dL (5.8-8.3)
[2017-01-26 07:29] LABS: IRON 42 ug/dL (45-180)
[2017-01-26] MEDS: Arformoterol 15 mcg/2 ml Inh Sol IH SCH ×2 (07:35→19:30)
[2017-01-26] MEDS: Budesonide 0.5 mg/2 ml Inhal Susp UD IH SCH ×2 (07:37→19:30)
[2017-01-26] MEDS: oxyCODONE 10 mg Immediate Release Tab PO PRN ×3 (08:35→17:11)
[2017-01-26] MEDS: Lidocaine 2% Jelly (30 ml) TOP PRN ×3 (08:38→22:16)
[2017-01-26] MEDS ORDERED: Ergocalciferol 50,000 Intl Units Cap PO SCH (10:00)
[2017-01-26] MEDS: Megestrol Acetate 40 mg/ml Cup PO SCH (10:12)
[2017-01-26] MEDS: POLYETHYLENE GLYCOL 3350 17 GM/Dose PACKET PO SCH (10:13)
[2017-01-26] MEDS: levoFLOXacin 500 MG TAB PO SCH (10:15)
[2017-01-26] MEDS: Tiotropium 18 mcg Cap For Inhalation IH SCH (10:16)
--- NOTE | 2017-01-26 17:29 | CP.PCM.PN ---
Subjective - Date & Time of Evaluation Date of Evaluation: 01/25/17 Time of Evaluation: 18:00 - Subjective Subjective: Notes some increased hematuria. Back and right shoulder pain continues to be there. REquesting lidocaine b/c this helps him at home 12 ROS otherwise negative Pain: as above Objective - Vital Signs/Intake and Output Vital Signs (last 24 hours): Temp Pulse Resp BP Pulse Ox 98 F 60 18 128/68 97 01/26/17 10:00 01/26/17 17:12 01/26/17 10:00 01/26/17 17:12 01/26/17 10:00 Intake and Output: 01/26/17 01/26/17 06:59 18:59 Intake Total 492 Output Total 900 Balance -408 - Medications Medications: Current Medications Acetaminophen (Tylenol 325mg Tab) 650 mg PO Q4H PRN PRN Reason: Fever >100.4 F Last Admin: 01/22/17 15:01 Dose: 650 mg Albuterol/Ipratropium (Duoneb 3 Mg/0.5 Mg (3 Ml) Ud) 3 ml IH Q2H PRN PRN Reason: Shortness of Breath Amlodipine Besylate (Norvasc) 10 mg PO DAILY [facility] Last Admin: 01/26/17 10:13 Dose: 10 mg Arformoterol Tartrate (Brovana) 15 mcg IH [id number] [facility] Last Admin: 01/26/17 07:35 Dose: Not Given Benzonatate (Tessalon Perles) 100 mg PO TID [facility] Last Admin: 01/26/17 17:14 Dose: 100 mg Budesonide (Pulmicort Respules) 0.5 mg IH BIDRESP [facility] Last Admin: 01/26/17 07:37 Dose: Not Given Calcium Carbonate (Caltrate) 600 mg PO BID [facility] Last Admin: 01/26/17 17:13 Dose: 600 mg Docusate Sodium (Colace) 100 mg PO TID [facility] Last Admin: 01/26/17 17:13 Dose: 100 mg Doxercalciferol (Hectorol) 0.5 mcg PO DAILY [facility] Last Admin: 01/26/17 10:17 Dose: 0.5 mcg Ergocalciferol (Drisdol 50,000 Intl Units Cap) 1 cap PO Q7D [facility] Last Admin: 01/26/17 10:15 Dose: 1 cap Fentanyl (Duragesic) 1 patch TD Q72H [facility] Last Admin: 01/26/17 13:14 Dose: 1 patch Fentanyl (Duragesic) 1 patch TD Q72H [facility] Last Admin: 01/26/17 13:13 Dose: 1 patch Guaifenesin/Codeine Phosphate (Robitussin W/Codeine) 5 ml PO Q6 [facility] Last Admin: 01/26/17 13:13 Dose: 5 ml Heparin Sodium (Porcine) (Heparin) 5,000 units SC 0600,1800 BRIA PRN Reason: Protocol Last Admin: 01/26/17 17:16 Dose: 5,000 units Hydromorphone HCl (Dilaudid) 1 mg IVP Q4H PRN PRN Reason: Pain, severe (8-10) Last Admin: 01/26/17 15:12 Dose: 1 mg Lidocaine HCl (Xylocaine 2%) 1 ea TOP BID PRN; Protocol PRN Reason: Pain, Mild (1-3) Last Admin: 01/26/17 15:13 Dose: 1 applic Megestrol Acetate (Megace) 200 mg PO DAILY [facility] Last Admin: 01/26/17 10:12 Dose: 200 mg Methylprednisolone (Solu-Medrol) 40 mg IVP 0600,1800 [facility] Last Admin: 01/26/17 17:14 Dose: 40 mg Metoprolol Tartrate (Lopressor) 50 mg PO BRKDIN [facility] Last Admin: 01/26/17 17:12 Dose: 50 mg Ondansetron HCl (Zofran Inj) 4 mg IVP Q4H PRN PRN Reason: Nausea/Vomiting Oxycodone HCl (Oxycodone Immediate Release Tab) 10 mg PO Q4 PRN PRN Reason: Pain, severe (8-10) Last Admin: 01/26/17 17:11 Dose: 10 mg Polyethylene Glycol (Miralax) 17 gm PO DAILY [facility] Last Admin: 01/26/17 10:13 Dose: 17 gm Pregabalin (Lyrica) 25 mg PO BID [facility] Last Admin: 01/26/17 17:16 Dose: 25 mg Tiotropium [place] (Spiriva) 18 mcg IH DAILY [facility] Last Admin: 01/26/17 10:16 Dose: 18 mcg - Labs Labs: 01/26/17 07:00 01/26/17 07:00 - Constitutional Appears: Well - Respiratory Exam Respiratory Exam: Clear to Ausculation Bilateral, NORMAL BREATHING PATTERN - Cardiovascular Exam Cardiovascular Exam: REGULAR RHYTHM, +S1, +S2. absent: Murmur - Extremities Exam Extremities Exam: Full ROM, Normal Capillary Refill, Normal Inspection. absent : Joint Swelling, Pedal Edema Assessment and Plan - Assessment and Plan (Free Text) Assessment: 56 M with pmh of past heavy smoking, is currently on chemo (carboplatin and pemetrexed) for stage 4 non-small cell lung carcinoma mets to thoracic spine T1- T3 presents with AC now resolving. UTI with hematuria now resolved. s/p kiney biopsy. Complicated by pneumonia on abx. Transferred to TCU for deconditioning. 1. AC with Hematuria and uti - Cr 2.1--> 1.9 pending today labs - s/p Kidney biopsy - external pathology report reviewed - Bladder & renal US was mainly unremarkable - Nephrology consult appreciated - reconsult urology given persistent hematuria 2. Sob - possible pneumonia - ID consulted -PO levaquin and doxy - CT chest shows some L sided multifocal infiltrate and possible pneumonia - Pulm consulted for recs - Robitussin with codeine prn changed to scheduled 3. RUE pain - Cont Dilaudid 1mg Q4H prn - Neuro consulted for recs- pt refused decompressive sx in the past - rec Lyrica 75m BID for neuropathic pain - Pt refused MRI of cervical and thoracic spine to check for progression of dx - Pain management consult as outpatient - topical 2% lidocaine cream BID PrN per patient requires 4. Hx of stage 4 non-small cell lung ca mets to thoracic spine - To follow up as an outpatient - to consider if candidate of Keytruda - On chemo - carboplatin and pemetrexed - Pain control 5.Anemia - Hb of 11.1 - pending today labs - cont to monitor
--- NOTE | 2017-01-26 17:31 | CP.PCM.PN ---
Subjective - Date & Time of Evaluation Date of Evaluation: 01/26/17 Time of Evaluation: 17:00 - Subjective Subjective: No acute events over night. Still acknowledges hematuria. Not sure if lidocaine topical cream has helped. 12 ROS otherwise negative Objective - Vital Signs/Intake and Output Vital Signs (last 24 hours): Temp Pulse Resp BP Pulse Ox 98 F 60 18 128/68 97 01/26/17 10:00 01/26/17 17:12 01/26/17 10:00 01/26/17 17:12 01/26/17 10:00 Intake and Output: 01/26/17 01/26/17 06:59 18:59 Intake Total 492 Output Total 900 Balance -408 - Medications Medications: Current Medications Acetaminophen (Tylenol 325mg Tab) 650 mg PO Q4H PRN PRN Reason: Fever >100.4 F Last Admin: 01/22/17 15:01 Dose: 650 mg Albuterol/Ipratropium (Duoneb 3 Mg/0.5 Mg (3 Ml) Ud) 3 ml IH Q2H PRN PRN Reason: Shortness of Breath Amlodipine Besylate (Norvasc) 10 mg PO DAILY [facility] Last Admin: 01/26/17 10:13 Dose: 10 mg Arformoterol Tartrate (Brovana) 15 mcg IH [id number] [facility] Last Admin: 01/26/17 07:35 Dose: Not Given Benzonatate (Tessalon Perles) 100 mg PO TID [facility] Last Admin: 01/26/17 17:14 Dose: 100 mg Budesonide (Pulmicort Respules) 0.5 mg IH BIDRESP [facility] Last Admin: 01/26/17 07:37 Dose: Not Given Calcium Carbonate (Caltrate) 600 mg PO BID [facility] Last Admin: 01/26/17 17:13 Dose: 600 mg Docusate Sodium (Colace) 100 mg PO TID [facility] Last Admin: 01/26/17 17:13 Dose: 100 mg Doxercalciferol (Hectorol) 0.5 mcg PO DAILY [facility] Last Admin: 01/26/17 10:17 Dose: 0.5 mcg Ergocalciferol (Drisdol 50,000 Intl Units Cap) 1 cap PO Q7D [facility] Last Admin: 01/26/17 10:15 Dose: 1 cap Fentanyl (Duragesic) 1 patch TD Q72H [facility] Last Admin: 01/26/17 13:14 Dose: 1 patch Fentanyl (Duragesic) 1 patch TD Q72H [facility] Last Admin: 01/26/17 13:13 Dose: 1 patch Guaifenesin/Codeine Phosphate (Robitussin W/Codeine) 5 ml PO Q6 [facility] Last Admin: 01/26/17 13:13 Dose: 5 ml Heparin Sodium (Porcine) (Heparin) 5,000 units SC 0600,1800 BRIA PRN Reason: Protocol Last Admin: 01/26/17 17:16 Dose: 5,000 units Hydromorphone HCl (Dilaudid) 1 mg IVP Q4H PRN PRN Reason: Pain, severe (8-10) Last Admin: 01/26/17 15:12 Dose: 1 mg Lidocaine HCl (Xylocaine 2%) 1 ea TOP BID PRN; Protocol PRN Reason: Pain, Mild (1-3) Last Admin: 01/26/17 15:13 Dose: 1 applic Megestrol Acetate (Megace) 200 mg PO DAILY [facility] Last Admin: 01/26/17 10:12 Dose: 200 mg Methylprednisolone (Solu-Medrol) 40 mg IVP 0600,1800 [facility] Last Admin: 01/26/17 17:14 Dose: 40 mg Metoprolol Tartrate (Lopressor) 50 mg PO BRKDIN [facility] Last Admin: 01/26/17 17:12 Dose: 50 mg Ondansetron HCl (Zofran Inj) 4 mg IVP Q4H PRN PRN Reason: Nausea/Vomiting Oxycodone HCl (Oxycodone Immediate Release Tab) 10 mg PO Q4 PRN PRN Reason: Pain, severe (8-10) Last Admin: 01/26/17 17:11 Dose: 10 mg Polyethylene Glycol (Miralax) 17 gm PO DAILY [facility] Last Admin: 01/26/17 10:13 Dose: 17 gm Pregabalin (Lyrica) 25 mg PO BID [facility] Last Admin: 01/26/17 17:16 Dose: 25 mg Tiotropium [place] (Spiriva) 18 mcg IH DAILY [facility] Last Admin: 01/26/17 10:16 Dose: 18 mcg - Labs Labs: 01/26/17 07:00 01/26/17 07:00 - Constitutional Appears: Well - Respiratory Exam Respiratory Exam: Clear to Ausculation Bilateral, NORMAL BREATHING PATTERN - Cardiovascular Exam Cardiovascular Exam: REGULAR RHYTHM, +S1, +S2. absent: Murmur - Extremities Exam Extremities Exam: Full ROM, Normal Capillary Refill, Normal Inspection. absent : Joint Swelling, Pedal Edema Assessment and Plan - Assessment and Plan (Free Text) Assessment: 56 M with pmh of past heavy smoking, is currently on chemo (carboplatin and pemetrexed) for stage 4 non-small cell lung carcinoma mets to thoracic spine T1- T3 presents with AC now resolving. UTI with hematuria now recurrent. s/p kiney biopsy. Complicated by pneumonia on abx. Transferred to TCU for deconditioning. Plan on reconsulting urology given persistent hematuria. F/u on UA 1. AC with Hematuria and uti - Cr 2.1--> 1.9 pending today labs - s/p Kidney biopsy - external pathology report reviewed - Bladder & renal US was mainly unremarkable - Nephrology consult appreciated - reconsult urology given persistent hematuria; f/u on UA 2. Sob - possible pneumonia - ID consulted -PO levaquin and doxy - CT chest shows some L sided multifocal infiltrate and possible pneumonia - Pulm consulted for recs - Robitussin with codeine prn changed to scheduled 3. RUE pain - Cont Dilaudid 1mg Q4H prn - Neuro consulted for recs- pt refused decompressive sx in the past - rec Lyrica 75m BID for neuropathic pain - Pt refused MRI of cervical and thoracic spine to check for progression of dx - Pain management consult as outpatient - topical 2% lidocaine cream BID PrN per patient requires 4. Hx of stage 4 non-small cell lung ca mets to thoracic spine - To follow up as an outpatient - to consider if candidate of Keytruda - On chemo - carboplatin and pemetrexed - Pain control 5.Anemia - Hb of 11.1 - pending today labs - cont to monitor
--- NOTE | 2017-01-26 18:43 | PN ---
DATE: 01/26/2017 SUBJECTIVE: The patient is in bed, in no acute distress. PHYSICAL EXAMINATION: VITAL SIGNS: Temperature is 98, blood pressure 160/90, respiratory rate of 18. HEENT: Unremarkable. NECK: Supple. LUNGS: Decreased breath sounds. HEART: Normal S1 and S2. ABDOMEN: Soft. LABORATORY DATA: Reveals a white count of 11,000, hemoglobin of 11, platelets of 156. Chemistry: Reveals a BUN 36, creatinine 1.8. 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 Review of the orders reveals patient's Levaquin once given this morning. We will discontinue Levaquin as 10 days of therapy has been adequate. Should have repeat imaging in 1 to 2 weeks as per pulmonary. Jonah Thurman MD
[2017-01-27] MEDS: oxyCODONE 10 mg Immediate Release Tab PO PRN ×6 (01:20→21:42)
--- NOTE | 2017-01-27 01:51 | PN ---
DATE: 01/26/2017 PULMONARY PROGRESS NOTE REFERRING PHYSICIAN: Dr. Fermin. SUBJECTIVE: She is lying in the bed, sleepy, arousable, family is at bedside. Night was unremarkable. Feels better. Decreased cough. No nausea, no vomiting, no diarrhea, leg pain or leg swelling. PHYSICAL EXAMINATION GENERAL: In no acute distress. VITAL SIGNS: Temperature is 98, heart rate is 60, respiratory rate is 20, blood pressure 128/68, and pulse ox 97% on 2 L nasal cannula. HEENT: Moist mucous membranes. No oral thrush. NECK: Supple. No JVD. LUNGS: Has a few scattered rhonchi in the right lung. HEART: S1 and S2. ABDOMEN: Soft and nontender. No organomegaly. EXTREMITIES: There is no edema. NEUROLOGIC: Awake and alert. Follows simple commands. MEDICATIONS: He is on calcium carbonate 600 mg twice a day, Colace 100 mg three times a day, Dilaudid 1 mg q.4h. p.r.n., vitamin D 60,000 unit subcutaneously q.7 days, DuoNeb q.12 h. p.r.n., fentanyl patch daily, and also have heparin 5000 units subcutaneously q.12 h., metoprolol tartrate 50 mg twice a daily, Lyrica 25 mg twice a day, Megace is 200 mg daily, MiraLax 17 g daily, oxycodone immediate release 10 mg q.4h. p.r.n., Pulmicort inhaled twice a day, Robitussin with Codeine 5 mL q.6 h., Solu-Medrol 40 mg twice a day, Spiriva capsule inhaled daily, Tessalon Perles 100 mg three times a day, Tylenol p.r.n. basis, Xylocaine 2% affected area twice a day, and Zofran p.r.n. basis. LABORATORY DATA: Shows hemoglobin 11.4, hematocrit 34.7, WBC 11.9, and platelet count is 156. Sodium 140, potassium 3.3, chloride 105, bicarbonate 25, BUN 36, creatinine 1.8, glucose is 105, calcium 8.2, iron is 42. AST 32, ALT 30, and alkaline phosphatase is 81. Albumin is 3.1. IMPRESSION AND PLAN: Metastatic lung cancer, chronic obstructive lung disease, resolving pneumonia, urinary tract infection, renal failure, slowly improving, chronic pain syndrome, still has some heme in the urine, seen by urologist, Dr. Guerrero. Pulmonary point of view, continue p.r.n. inhaled bronchodilator, keep head at 45 degrees as patient precaution, pain management, gastric prophylaxis, DVT prophylaxis, out of bed to chair, and physical therapy. Thank you and we will follow with you. Elisabet Pelaez MD
[2017-01-27] MEDS: HYDROmorphone 1 mg/ml ISec IVP PRN ×5 (03:19→19:01)
[2017-01-27] MEDS: guaiFENesin-Codeine 100-10mg/5ml Syrup (5 ml) UD PO SCH ×3 (05:25→17:53)
[2017-01-27] MEDS: MethylPREDNISolone 40 mg Vial IVP SCH ×2 (05:26→17:55)
[2017-01-27] MEDS: Arformoterol 15 mcg/2 ml Inh Sol IH SCH ×2 (07:36→20:02)
[2017-01-27] MEDS: Budesonide 0.5 mg/2 ml Inhal Susp UD IH SCH ×2 (07:37→20:02)
[2017-01-27] MEDS: Megestrol Acetate 40 mg/ml Cup PO SCH (09:51)
[2017-01-27] MEDS: POLYETHYLENE GLYCOL 3350 17 GM/Dose PACKET PO SCH (09:52)
[2017-01-27] MEDS: Tiotropium 18 mcg Cap For Inhalation IH SCH (09:53)
--- NOTE | 2017-01-27 20:14 | PN ---
PULMONARY PROGRESS NOTE DATE: 01/27/2017 REFERRING PHYSICIAN: Dr. Fermin. SUBJECTIVE: He is lying in the bed, head at 45 degrees, sleepy, arousable. Still having lot of right shoulder and upper back pain, breathing is okay, mild cough. No nausea, no vomiting, no diarrhea. No leg pain, no leg swelling. OBJECTIVE: GENERAL: In no acute distress. VITAL SIGNS: Temperature is 98, heart rate is 86, respiratory rate is 20, blood pressure 122/73, and pulse ox is 95% on 2 L nasal cannula. HEENT: Moist mucous membranes. Crowded airway. NECK: Supple. No JVD. LUNGS: Has fair airflow with rhonchi. HEART: S1 and S2. ABDOMEN: Soft and nontender. No organomegaly. EXTREMITIES: No edema. NEUROLOGIC: Awake, alert, and follows simple commands. MEDICATIONS: He is on Brovana inhaled twice a day, calcium carbonate 600 mg twice a day, Colace 100 mg twice a day, Dilaudid 1 mg q. 4 hour p.r.n., vitamin D 50,000 unit subcutaneous q. 7 days, DuoNeb q. 2 hour p.r.n., Duragesic patch q. 72 hour, Fentanyl 1 patch q. 72 hours, heparin 5000 units subcutaneous q. 12 hours, metoprolol tartrate 50 mg twice a day, Lyrica 25 mg twice a day, Megace 200 mg daily, MiraLax 17 gram daily, Norvasc 10 mg daily, oxycodone immediate release 10 mg q. 4 hours p.r.n., Pulmicort inhaled twice a day, Robitussin with codeine 5 mL q. 6 hours, Solu-Medrol 20 mg q. 12 hour, Spiriva 1 capsule inhaled daily, Tessalon Perles 100 mg 3 times a day, Tylenol p.r.n. basis, and Zofran p.r.n. basis. LABORATORY DATA: Reviewed. No new lab is available since yesterday. IMPRESSION AND PLAN: Metastatic lung cancer, chronic obstructive lung disease, resolving pneumonia, urinary tract infection, renal failure, chronic pain syndrome, had some RBCs in urine. He has been followed by Dr. Guerrero in acute side of the hospital. Pulmonary point of view, he is doing okay. We will continue bronchodilator, keep head at 45 degree, pain management, gastric prophylaxis, deep venous thrombosis prophylaxis, and fall precaution. Thank you and we will follow with you. Elisabet Pelaez MD
--- NOTE | 2017-01-27 21:08 | PN ---
DATE: 01/27/2017 SUBJECTIVE: The patient is in bed, in no acute distress, nontoxic. PHYSICAL EXAMINATION VITAL SIGNS: Temperature is 98, blood pressure is 120/70, respiratory rate of 16. HEENT: Unremarkable. NECK: Supple. LUNGS: Decreased breath sounds. HEART: Normal S1 and S2. ABDOMEN: Soft. LABORATORY DATA: Reveals a white count of 11,900, hemoglobin of 11, platelets of 156. Chemistries reveals BUN of 36 and creatinine 1.8. Urinalysis is noted. Microbiology reveals the urine culture is negative. ASSESSMENT AND PLAN: This is a 56-year-old male with lung infiltrate on CAT scan, healthcare associated pneumonia, right lung mass, poorly differentiated non-small cell and the patient status post treatment with Levaquin for 10 days. Now off of antibiotics. Jonah Thurman MD
[2017-01-28] MEDS: guaiFENesin-Codeine 100-10mg/5ml Syrup (5 ml) UD PO SCH ×2 (00:30→05:03)
[2017-01-28] MEDS: HYDROmorphone 1 mg/ml ISec IVP PRN ×6 (00:30→20:57)
[2017-01-28] MEDS: oxyCODONE 10 mg Immediate Release Tab PO PRN ×5 (03:41→23:36)
[2017-01-28] MEDS: Lidocaine 2% Jelly (30 ml) TOP PRN ×2 (04:59→10:18)
[2017-01-28] MEDS: MethylPREDNISolone 40 mg Vial IVP SCH (05:03)
[2017-01-28 06:35] LABS: BASO # 0.01 K/mm3 (0.0-2.0); BASO % 0.1 % (0.0-3.0); BILIRUBIN,TOTAL 0.7 mg/dL (0.2-1.3); CALCIUM 8.4 mg/dL (8.4-10.5); GRAN # 10.02 (1.4-6.5); GRAN % 75.3 % (50.0-68.0); HEMATOCRIT 34.5 % (42.0-52.0); LYMPH # 1.6 (1.2-3.4); LYMPH % 11.8 % (22.0-35.0); MEAN CELL VOLUME 89.6 fl (80.0-105.0); MEAN CORPUSCULAR HEMOGLOBIN 29.6 pg (25.0-35.0); MEAN PLATELET VOLUME 10.2 fl (7.0-11.0); MONO # 1.7 (0.1-0.6); MONO % 12.8 % (1.0-6.0); POTASSIUM 3.6 mmol/L (3.6-5.0); RED CELL DISTRIBUTION WIDTH 17.8 % (11.5-14.5); TOTAL PROTEIN 6.3 g/dL (5.8-8.3); WHITE BLOOD COUNT 13.3 10^3/ul (4.5-11.0)
[2017-01-28] MEDS: Arformoterol 15 mcg/2 ml Inh Sol IH SCH ×2 (07:19→20:15)
[2017-01-28] MEDS: POLYETHYLENE GLYCOL 3350 17 GM/Dose PACKET PO SCH (10:16)
[2017-01-28] MEDS: Tiotropium 18 mcg Cap For Inhalation IH SCH (10:17)
[2017-01-28] MEDS: Megestrol Acetate 40 mg/ml Cup PO SCH (10:18)
--- NOTE | 2017-01-28 13:36 | PN ---
DATE: 01/27/2017 SUBJECTIVE: The patient is seen in his room on the transitional care unit at [facility]. PHYSICAL EXAMINATION: GENERAL: He is awake, alert and answering questions. He is in no acute distress. VITAL SIGNS: He is afebrile, temperature was 98.4, pulse 76, respirations 20, and BP 135/78. ABDOMEN: Soft, nontender, and nondistended. There is no CVA tenderness. Bladder is not palpably distended. GENITOURINARY: Phallus is normal. Scrotum is normal. Testes bilaterally distended, nontender, and no masses. LABORATORY DATA: Last urinalysis showed positive protein, too numerous to count RBCs, and 5 to 10 WBCs. Last urine culture showed no growth less than 1000 CFU/mL. Prior urine culture from 01/14/2017 grew Proteus mirabilis. On imaging; renal ultrasound from 01/13/2017 showed the kidneys to have normal size contour echogenicity. There is no hydronephrosis or solid mass noted in the kidney. Bladder ultrasound also from 01/13/2017 showed no wall thickening of the bladder. There was no significant postvoid residual. IMPRESSION AND PLAN: Gross hematuria persists. The patient's kidney function has stabilized. He had a kidney biopsy, which was reviewed. From a urologic standpoint, the patient does need a cystoscopy at some point guarding the gross hematuria especially in light of the patient's extensive smoking history. The patient, however, has stage IV lung cancer, he has been treated with chemotherapy. He has recent onset acute kidney failure, pneumonia, and it is medically in guarded shape. I would not recommend the patient being taken to the operating room at this point as he will require anesthesia. I would continue current medical therapy. The patient already has metastatic lung cancer, it is possible that he does have bladder cancer as well and I do recommend the cystoscopy when the patient is medically able to have anesthesia. Please re-consult us when if patient condition improves to that point. The patient can also followup in our office as an outpatient and when he is medically improved, we will schedule him for a cystoscope to rule out any intravesical pathology as the source of his gross hematuria. Bladimir Pierre MD
--- NOTE | 2017-01-28 15:53 | PN ---
DATE: 01/28/2017 SUBJECTIVE: The patient is in bed, in no acute distress. PHYSICAL EXAMINATION VITAL SIGNS: Temperature is 98, blood pressure is 170/100, respiratory rate of 18. HEENT: Unremarkable. NECK: Supple. LUNGS: Decreased breath sounds. HEART: Normal S1 and S2. ABDOMEN: Soft, nontender. LABORATORY DATA: Reveals a white count of 13,300, hemoglobin of 11. Chemistries are noted. BUN of 45, creatinine of 1.9, and urinalysis is noted. Microbiology reveals the blood cultures are negative. Dr. Bladimir Pierre's note is reviewed. ASSESSMENT AND PLAN: A 56-year-old male with lung infiltrate on CAT scan, healthcare associated pneumonia, right lung mass, poorly differentiated non-small cell and status post treatment with Levaquin, currently now off of antibiotics, afebrile. Review of orders reveals the patient to be off of antibiotics. We will follow with you. Jonah Thurman MD
[2017-01-28] MEDS: Budesonide 0.5 mg/2 ml Inhal Susp UD IH SCH (20:16)
--- NOTE | 2017-01-28 23:10 | CON ---
DATE: 01/28/2017 CHIEF COMPLAINT: Hematuria. HISTORY OF PRESENT ILLNESS: The patient is a 56-year-old man with stage IV lung cancer, getting chemotherapy. He had gotten a alturas-based chemotherapeutic agent and he went into renal failure, he reported having hematuria. Renal biopsy was done which was compatible with medical renal failure not due to any obstructive uropathy. A PET scan was done, which showed the lung tumor with lung metastasis and also question of adrenal metastasis. His creatinine is now 1.9. He is comfortable and voiding well. The bladder ultrasound showed no residual urine. The patient has no dysuria. PAST MEDICAL HISTORY: Significant for history of COPD. SOCIAL HISTORY: He is a former smoker. His urine is now clear. PAST SURGICAL HISTORY: He has had surgery on his shoulder and a plate placed in his back. FAMILY HISTORY: Noncontributory. ALLERGIES: HE IS ALLERGIC TO PENICILLIN. MEDICATIONS: At home, he takes many medications, refer to chart for them. He is on Megace, he is on Solu-Medrol, also on Norvasc, the chemotherapeutic agents that he got are on the chart. REVIEW OF SYMPTOMS: He is on oxygen, has mild shortness of breath at rest. PHYSICAL EXAMINATION: VITAL SIGNS: Physical examination shows him to be with a blood pressure 140/84 and pulse 79. GENERAL: He is well oriented x3. He appears frail, short of breath on talking. He does have weakness. HEENT: Normocephalic. Sclerae clear. Conjunctivae noninjected. BACK: No CVA pain. ABDOMEN: No hepatosplenomegaly or rebound. He has no abdominal complaints. SKIN: No purpura. There is mild edema. LABORATORY DATA: Lab work shows a creatinine of 1.9 with a BUN of 45. His white count is 13,000, hemoglobin is 11.4. Urine culture with no growth. PLAN: I reviewed the x-rays. I do not feel he should have a cysto given the seriousness of his other medical problems. I have ordered urine cytology. Only if his cytology were positive, I would do a cysto. I think he would not be a candidate for any urologic procedures. We will only intervene if absolutely needed intervention for bladder tumor or something along . There is no evidence that he has this, the hematuria may very well have been from the renal failure. Loco Guerrero MD [facility] # [id number]
[2017-01-29] MEDS: HYDROmorphone 1 mg/ml ISec IVP PRN ×4 (00:56→13:33)
[2017-01-29] MEDS: guaiFENesin-Codeine 100-10mg/5ml Syrup (5 ml) UD PO SCH ×4 (00:57→18:25)
--- NOTE | 2017-01-29 03:56 | PN ---
DATE: 01/28/2017 PULMONARY PROGRESS NOTE REFERRING PHYSICIAN: Dr. Fermin. SUBJECTIVE: He is lying in the bed, head at 45 degrees. Still having lot of right shoulder and upper back pain, breathing is better. No increased cough. No nausea, no vomiting, no diarrhea. No leg pain, no leg swelling.. PHYSICAL EXAMINATION: GENERAL: In no acute distress. VITAL SIGNS: Temperature is 98, heart rate is 59, respiratory rate is 20, blood pressure 126/82, and pulse ox 100% on room air. HEENT: Moist mucous membranes. No oral thrush. NECK: Supple. No JVD. LUNGS: Has a few scattered rhonchi, overall fair airflow. HEART: S1 and S2. ABDOMEN: Soft and nontender. No organomegaly. EXTREMITIES: No edema. NEUROLOGIC: Awake and alert. Follows simple commands. MEDICATIONS: He is on calcium carbonate 600 mg twice a day, Colace 100 mg twice a day, Dilaudid 1 mg IV q.4 hours, p.r.n., vitamin D 50,000 unit subcutaneously q. 7 days, DuoNeb q.12 hours p.r.n., Duragesic patch q. 72 hours, and also on heparin 5000 units subcutaneously q.12 hours, metoprolol tartrate 50 mg twice a daily, Lyrica 25 mg twice a day, Megace is 200 mg daily, MiraLax 17 g daily, Norvasc 10 mg daily, oxycodone immediate release 10 mg q.4 hours p.r.n., Pulmicort inhaled twice a day, Robitussin with Codeine 5 mL q.6 hours., Solu-Medrol 40 mg q. 12 hours, Spiriva 1 capsule inhaled daily, Tylenol p.r.n., Tessalon Perles 100 mg 3 times a day, Xylocaine patch to the affected area and Zofran p.r.n. basis. LABORATORY DATA: Shows hemoglobin 11.4, hematocrit 34.5, WBC is 13.3, platelet is 230. Sodium 137, potassium 3.6, chloride 103, bicarbonate 26, BUN 45, creatinine 1.9, glucose 109, calcium is 8.4, AST 37, ALT 20, alkaline phosphatase is 70, albumin is 3.1. IMPRESSION AND PLAN: Metastatic lung cancer, chronic obstructive lung disease, resolving pneumonia, urinary tract infection, has some hematuria, renal failure, chronic pain syndrome. Spoke to nursing staff. Also spoke to family at bedside. All the questions answered. The patient seen by Urology and also been followed by Oncology, had a severe pain with metastatic disease, continue pain management. Overall poor prognosis. Decrease Solu-Medrol to 20 q. 12 hours. Gastric prophylaxis and deep venous thrombosis prophylaxis. Elisabet Pelaez MD
[2017-01-29] MEDS: MethylPREDNISolone 40 mg Vial IVP SCH ×2 (05:47→18:29)
[2017-01-29] MEDS: Lidocaine 2% Jelly (30 ml) TOP PRN ×2 (05:47→20:30)
[2017-01-29] MEDS: Arformoterol 15 mcg/2 ml Inh Sol IH SCH ×3 (07:22→20:33)
[2017-01-29] MEDS: Budesonide 0.5 mg/2 ml Inhal Susp UD IH SCH ×3 (07:22→20:34)
[2017-01-29 07:29] LABS: ALB/GLOB RATIO 1.1 (1.1-1.8); BILIRUBIN,TOTAL 0.5 mg/dL (0.2-1.3); CALCIUM 8.3 mg/dL (8.4-10.5); POTASSIUM 3.6 mmol/L (3.6-5.0); TOTAL PROTEIN 6.3 g/dL (5.8-8.3)
[2017-01-29 08:13] LABS: EOS % 0.2 % (1.5-5.0); GRAN # 9.11 (1.4-6.5); GRAN % 77.3 % (50.0-68.0); HEMATOCRIT 36.3 % (42.0-52.0); LYMPH # 1.2 (1.2-3.4); LYMPH % 9.9 % (22.0-35.0); MEAN CELL VOLUME 90.8 fl (80.0-105.0); MEAN CORPUSCULAR HGB CONC 33.1 g/dl (31.0-37.0); MEAN PLATELET VOLUME 9.9 fl (7.0-11.0); MONO # 1.5 (0.1-0.6); MONO % 12.6 % (1.0-6.0); RED CELL DISTRIBUTION WIDTH 17.9 % (11.5-14.5); WHITE BLOOD COUNT 11.8 10^3/ul (4.5-11.0)
[2017-01-29] MEDS: oxyCODONE 10 mg Immediate Release Tab PO PRN ×3 (09:11→20:15)
[2017-01-29] MEDS: Tiotropium 18 mcg Cap For Inhalation IH SCH (09:14)
[2017-01-29] MEDS: POLYETHYLENE GLYCOL 3350 17 GM/Dose PACKET PO SCH (10:55)
[2017-01-29] MEDS: Megestrol Acetate 40 mg/ml Cup PO SCH (10:59)
--- NOTE | 2017-01-29 15:18 | CP.PCM.CON ---
History of Present Illness - History of Present Illness History of Present Illness: SPINE Had seen pt previously. Has met lung Ca w extension into R side of C/T spine. Expressed opinion at that time that this cannot be surgically treated, given extent and involvement. Would require hours of surgery, could only attept to debulk and decompress but if Oncology unable to stop progression of tumor would come back and we would have put the pt at risk for no benefit. Certainly would not be curative. Would need stabilization with hardware which would be hours of operative time and anesthesia presumably would only have L lung to work with. Understand pt on new chemo agent now. Would see if that is of clinical benefit first. Past Patient History - Infectious Disease Hx of Infectious Diseases: None - Past Social History Smoking Status: Former Smoker - CARDIAC Hx Cardiac Disorders: No - PULMONARY Hx Chronic Obstructive Pulmonary Disease (COPD): Yes - NEUROLOGICAL Hx Neurological Disorder: No - HEENT Hx HEENT Problems: No - RENAL Hx Renal Failure: Yes - ENDOCRINE/METABOLIC Hx Endocrine Disorders: No - HEMATOLOGICAL/ONCOLOGICAL Hx Blood Disorders: Yes - INTEGUMENTARY Hx Dermatological Problems: No Other/Comment: BILATERAL PITTNG EDEMA T0 FOOT +2 MORE TO RIGHT. - MUSCULOSKELETAL/RHEUMATOLOGICAL Hx Musculoskeletal Disorders: Yes Hx Falls: No Hx Unsteady Gait: Yes - GASTROINTESTINAL Hx Gastrointestinal Disorders: No - GENITOURINARY/GYNECOLOGICAL Hx Genitourinary Disorders: Yes Hx Hematuria: Yes (01-14-17) - PSYCHIATRIC Hx Psychophysiologic Disorder: Yes Hx Depression: Yes - SURGICAL HISTORY Hx Surgeries: Yes Hx Musculoskeletal Surgery: Yes (plate placed in back) Hx Orthopedic Surgery: Yes (R shoulder) - ANESTHESIA Hx Anesthesia: Yes Meds Allergies/Adverse Reactions: Allergies Allergy/AdvReac Type Severity Reaction Status Date / Time Penicillins Allergy ANAPHYLAXIS Verified 01/22/17 03:17 - Medications Medications: Current Medications Acetaminophen (Tylenol 325mg Tab) 650 mg PO Q4H PRN PRN Reason: Fever >100.4 F Last Admin: 01/22/17 15:01 Dose: 650 mg Albuterol/Ipratropium (Duoneb 3 Mg/0.5 Mg (3 Ml) Ud) 3 ml IH Q2H PRN PRN Reason: Shortness of Breath Amlodipine Besylate (Norvasc) 10 mg PO DAILY [facility] Last Admin: 01/29/17 11:02 Dose: 10 mg Arformoterol Tartrate (Brovana) 15 mcg IH [id number] [facility] Last Admin: 01/29/17 07:22 Dose: Not Given Benzonatate (Tessalon Perles) 100 mg PO TID [facility] Last Admin: 01/29/17 14:22 Dose: 100 mg Budesonide (Pulmicort Respules) 0.5 mg IH BIDRESP [facility] Last Admin: 01/29/17 07:22 Dose: Not Given Calcium Carbonate (Caltrate) 600 mg PO BID [facility] Last Admin: 01/29/17 09:12 Dose: 600 mg Docusate Sodium (Colace) 100 mg PO TID [facility] Last Admin: 01/29/17 09:12 Dose: 100 mg Doxercalciferol (Hectorol) 0.5 mcg PO DAILY [facility] Last Admin: 01/29/17 09:11 Dose: 0.5 mcg Ergocalciferol (Drisdol 50,000 Intl Units Cap) 1 cap PO Q7D [facility] Last Admin: 01/26/17 10:15 Dose: 1 cap Fentanyl (Duragesic) 1 patch TD Q72H [facility] Fentanyl (Duragesic) 200 patch TD Q72H [facility] Guaifenesin/Codeine Phosphate (Robitussin W/Codeine) 5 ml PO Q6 [facility] Last Admin: 01/29/17 14:14 Dose: 5 ml Heparin Sodium (Porcine) (Heparin) 5,000 units SC 0600,1800 [facility] PRN Reason: Protocol Last Admin: 01/29/17 05:46 Dose: 5,000 units Hydromorphone HCl (Dilaudid) 2 mg IVP Q3H PRN PRN Reason: Pain, moderate (4-7) Lidocaine HCl (Xylocaine 2%) 1 ea TOP BID PRN; Protocol PRN Reason: Pain, Mild (1-3) Last Admin: 01/29/17 05:47 Dose: 1 applic Megestrol Acetate (Megace) 200 mg PO DAILY [facility] Last Admin: 01/29/17 10:59 Dose: 200 mg Methylprednisolone (Solu-Medrol) 20 mg IVP 0600,1800 [facility] Last Admin: 01/29/17 05:47 Dose: 20 mg Metoprolol Tartrate (Lopressor) 50 mg PO BRKDIN [facility] Last Admin: 01/29/17 08:55 Dose: 50 mg Ondansetron HCl (Zofran Inj) 4 mg IVP Q4H PRN PRN Reason: Nausea/Vomiting Oxycodone HCl (Oxycodone Immediate Release Tab) 10 mg PO Q4 PRN PRN Reason: Pain, severe (8-10) Last Admin: 01/29/17 09:11 Dose: 10 mg Polyethylene Glycol (Miralax) 17 gm PO DAILY [facility] Last Admin: 01/29/17 10:55 Dose: 17 gm Pregabalin (Lyrica) 25 mg PO BID [facility] Last Admin: 01/29/17 09:11 Dose: 25 mg Tiotropium [place] (Spiriva) 18 mcg IH DAILY [facility] Last Admin: 01/29/17 09:14 Dose: 18 mcg Results - Vital Signs Recent Vital Signs: Last Vital Signs Temp 98.2 F 01/29/17 10:42 Pulse 76 01/29/17 10:42 Resp 20 01/29/17 10:42 BP 161/100 H 01/29/17 11:02 Pulse Ox 100 01/28/17 17:00 - Labs Result Diagrams: 01/29/17 06:50 01/29/17 06:50 Labs: Laboratory Results - last 24 hr 01/29/17 01/29/17 06:50 06:50 WBC 11.8 H RBC 4.00 Hgb 12.0 L Hct 36.3 L MCV 90.8 MCH 30.0 MCHC 33.1 RDW 17.9 H Plt Count 276 MPV 9.9 Gran % 77.3 H Lymph % (Auto) 9.9 L [place] % (Auto) 12.6 H Eos % (Auto) 0.2 L Baso % (Auto) 0.0 Gran # 9.11 H Lymph # 1.2 [place] # 1.5 H Eos # 0.0 Baso # 0.00 Sodium 140 Potassium 3.6 Chloride 105 Carbon Dioxide 24 Anion Gap 15 BUN 38 H Creatinine 1.7 H Est GFR ( Amer) 50 Est GFR (Non-Af Amer) 42 Random Glucose 169 H Calcium 8.3 L Total Bilirubin 0.5 AST 29 ALT 29 Alkaline Phosphatase 69 Total Protein 6.3 Albumin 3.3 Globulin 3.0 Albumin/Globulin Ratio 1.1
[2017-01-29] MEDS: HYDROmorphone 2 mg/ml ISec IVP PRN ×3 (15:27→21:49)
--- NOTE | 2017-01-29 15:50 | CP.PCM.PN ---
Subjective - Date & Time of Evaluation Date of Evaluation: 01/29/17 Time of Evaluation: 10:35 - Subjective Subjective: Comfortable, no SOB at rest, no fevers. Objective - Vital Signs/Intake and Output Vital Signs (last 24 hours): Temp Pulse Resp BP Pulse Ox 97.5 F L 87 18 124/74 100 01/28/17 17:00 01/29/17 08:55 01/28/17 17:00 01/29/17 08:55 01/28/17 17:00 - Medications Medications: Current Medications Acetaminophen (Tylenol 325mg Tab) 650 mg PO Q4H PRN PRN Reason: Fever >100.4 F Last Admin: 01/22/17 15:01 Dose: 650 mg Albuterol/Ipratropium (Duoneb 3 Mg/0.5 Mg (3 Ml) Ud) 3 ml IH Q2H PRN PRN Reason: Shortness of Breath Amlodipine Besylate (Norvasc) 10 mg PO DAILY [facility] Last Admin: 01/28/17 10:16 Dose: 10 mg Arformoterol Tartrate (Brovana) 15 mcg IH [id number] [facility] Last Admin: 01/29/17 07:22 Dose: Not Given Benzonatate (Tessalon Perles) 100 mg PO TID [facility] Last Admin: 01/29/17 09:11 Dose: 100 mg Budesonide (Pulmicort Respules) 0.5 mg IH BIDRESP [facility] Last Admin: 01/29/17 07:22 Dose: Not Given Calcium Carbonate (Caltrate) 600 mg PO BID [facility] Last Admin: 01/29/17 09:12 Dose: 600 mg Docusate Sodium (Colace) 100 mg PO TID [facility] Last Admin: 01/29/17 09:12 Dose: 100 mg Doxercalciferol (Hectorol) 0.5 mcg PO DAILY [facility] Last Admin: 01/29/17 09:11 Dose: 0.5 mcg Ergocalciferol (Drisdol 50,000 Intl Units Cap) 1 cap PO Q7D [facility] Last Admin: 01/26/17 10:15 Dose: 1 cap Fentanyl (Duragesic) 1 patch TD Q72H [facility] Last Admin: 01/26/17 13:13 Dose: 1 patch Fentanyl (Duragesic) 1 patch TD Q72H [facility] Guaifenesin/Codeine Phosphate (Robitussin W/Codeine) 5 ml PO Q6 [facility] Last Admin: 01/29/17 05:47 Dose: 5 ml Heparin Sodium (Porcine) (Heparin) 5,000 units SC 0600,1800 [facility] PRN Reason: Protocol Last Admin: 01/29/17 05:46 Dose: 5,000 units Hydromorphone HCl (Dilaudid) 1 mg IVP Q4H PRN PRN Reason: Pain, severe (8-10) Last Admin: 01/29/17 09:10 Dose: 1 mg Lidocaine HCl (Xylocaine 2%) 1 ea TOP BID PRN; Protocol PRN Reason: Pain, Mild (1-3) Last Admin: 01/29/17 05:47 Dose: 1 applic Megestrol Acetate (Megace) 200 mg PO DAILY [facility] Last Admin: 01/28/17 10:18 Dose: 200 mg Methylprednisolone (Solu-Medrol) 20 mg IVP 0600,1800 [facility] Last Admin: 01/29/17 05:47 Dose: 20 mg Metoprolol Tartrate (Lopressor) 50 mg PO BRKDIN [facility] Last Admin: 01/29/17 08:55 Dose: 50 mg Ondansetron HCl (Zofran Inj) 4 mg IVP Q4H PRN PRN Reason: Nausea/Vomiting Oxycodone HCl (Oxycodone Immediate Release Tab) 10 mg PO Q4 PRN PRN Reason: Pain, severe (8-10) Last Admin: 01/29/17 09:11 Dose: 10 mg Polyethylene Glycol (Miralax) 17 gm PO DAILY [facility] Last Admin: 01/28/17 10:16 Dose: 17 gm Pregabalin (Lyrica) 25 mg PO BID [facility] Last Admin: 01/29/17 09:11 Dose: 25 mg Tiotropium [place] (Spiriva) 18 mcg IH DAILY [facility] Last Admin: 01/29/17 09:14 Dose: 18 mcg - Labs Labs: 01/29/17 06:50 01/29/17 06:50 - Constitutional Appears: Non-toxic, No Acute Distress - Head Exam Head Exam: NORMAL INSPECTION - ENT Exam ENT Exam: Mucous Membranes Moist - Neck Exam Neck Exam: absent: Lymphadenopathy, Meningismus - Respiratory Exam Respiratory Exam: Decreased Breath Sounds - Cardiovascular Exam Cardiovascular Exam: +S1, +S2 - GI/Abdominal Exam GI & Abdominal Exam: Soft. 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
--- NOTE | 2017-01-29 17:01 | PN ---
PULMONARY PROGRESS NOTE DATE: 01/29/2017 REFERRING PHYSICIAN: Dr. Fermin. SUBJECTIVE: The patient is refusing chemotherapy. Night was unremarkable. Still having lot of right shoulder and upper back pain. Cough is better. No nausea, no vomiting, no diarrhea. No yolie blood but does have microscopic hematuria. No leg swelling. OBJECTIVE: GENERAL: In no acute distress. VITAL SIGNS: Temperature is 98, heart rate 76, respiratory rate is 20, blood pressure 169/100, and pulse ox 100% on nasal canula. HEENT: Moist mucous membranes. Small oral cavity. NECK: Supple. No JVD. LUNGS: Has fair airflow with rhonchi. HEART: S1 and S2. ABDOMEN: Soft and nontender. No organomegaly. EXTREMITIES: There is no edema. NEUROLOGIC: Awake and alert. Follows simple commands. MEDICATIONS: He is on Brovana 50 mcg inhaled twice a day, calcium carbonate 600 mg twice a day, Colace 100 mg three times a day, Dilaudid 2 mg IV q. 3 hours p.r.n., vitamin D 50,000 unit subQ q. 7 days, DuoNeb q. 2 hour p.r.n., Fentanyl patch q. 72 hours, heparin 5000 units subQ q. 12 hours, metoprolol tartrate 50 mg twice a day, Lyrica 25 mg twice a day, Megace 200 mg daily, MiraLax 17 gram p.o. daily, Norvasc 10 mg daily, oxycodone immediate release 10 mg q. 4 hours p.r.n., Pulmicort inhaled twice a day, Robitussin with codeine 5 mL q. 6 hours, Solu-Medrol 20 mg q. 12 hours, Spiriva 1 capsule inhaled daily, benzonate 100 mg three times a day, Tylenol p.r.n., Xylocaine 2% affected area twice a day, and Zofran p.r.n. basis. LABORATORY DATA: Shows hemoglobin 12.0, hematocrit 36.3, WBC is 11.8, and platelet is 276. Sodium 140, potassium 3.6, chloride 105, bicarbonate 24, BUN 38, creatinine 1.7, glucose 169, calcium is 8.3, AST 29, ALT 29, and alkaline phosphatase is 69. IMPRESSION AND PLAN: Metastatic lung cancer, chronic obstructive lung disease, mets to the spine with resolving pneumonia, improving renal function, has a hematuria, chronic pain syndrome. Case discussed with Dr. Fermin in detail, spoke to family. He is receiving is chemotherapy, being followed by urology for hematuria. If hematuria persists, may need further workup. Pulmonary point of view, taper off steroids and inhaled bronchodilator. Pain management, gastric prophylaxis, deep venous thrombosis prophylaxis and fall precaution. Continue therapy. Thank you and we will follow with you. Elisabet Pelaez MD
[2017-01-30] MEDS: HYDROmorphone 2 mg/ml ISec IVP PRN ×5 (00:57→15:49)
[2017-01-30] MEDS: guaiFENesin-Codeine 100-10mg/5ml Syrup (5 ml) UD PO SCH ×4 (00:59→17:25)
[2017-01-30] MEDS: MethylPREDNISolone 40 mg Vial IVP SCH ×2 (05:42→17:25)
[2017-01-30 07:16] LABS: ALB/GLOB RATIO 1.1 (1.1-1.8); BILIRUBIN,TOTAL 0.7 mg/dL (0.2-1.3); POTASSIUM 3.6 mmol/L (3.6-5.0)
[2017-01-30 07:22] LABS: GRAN # 11.07 (1.4-6.5); GRAN % 82.9 % (50.0-68.0); HEMATOCRIT 33.9 % (42.0-52.0); LYMPH % 7.2 % (22.0-35.0); MEAN CELL VOLUME 91.4 fl (80.0-105.0); MEAN CORPUSCULAR HEMOGLOBIN 29.4 pg (25.0-35.0); MEAN CORPUSCULAR HGB CONC 32.2 g/dl (31.0-37.0); MEAN PLATELET VOLUME 9.8 fl (7.0-11.0); MONO # 1.3 (0.1-0.6); MONO % 9.9 % (1.0-6.0); RED CELL DISTRIBUTION WIDTH 18.2 % (11.5-14.5); WHITE BLOOD COUNT 13.4 10^3/ul (4.5-11.0)
[2017-01-30] MEDS: Arformoterol 15 mcg/2 ml Inh Sol IH SCH (07:41)
[2017-01-30] MEDS: Budesonide 0.5 mg/2 ml Inhal Susp UD IH SCH (07:41)
[2017-01-30] MEDS: Megestrol Acetate 40 mg/ml Cup PO SCH (10:12)
[2017-01-30] MEDS: POLYETHYLENE GLYCOL 3350 17 GM/Dose PACKET PO SCH (10:13)
[2017-01-30] MEDS: Tiotropium 18 mcg Cap For Inhalation IH SCH (10:14)
--- NOTE | 2017-01-30 15:17 | CP.PCM.PN ---
Subjective - Date & Time of Evaluation Date of Evaluation: 01/30/17 Time of Evaluation: 10:25 - Subjective Subjective: Comfortable, no fevers. Objective - Vital Signs/Intake and Output Vital Signs (last 24 hours): Temp Pulse Resp BP Pulse Ox 98.7 F 78 15 131/76 100 01/29/17 16:59 01/30/17 08:19 01/29/17 16:59 01/30/17 08:19 01/28/17 17:00 Intake and Output: 01/30/17 01/30/17 06:59 18:59 Intake Total 180 Output Total 600 Balance -420 - Medications Medications: Current Medications Acetaminophen (Tylenol 325mg Tab) 650 mg PO Q4H PRN PRN Reason: Fever >100.4 F Last Admin: 01/22/17 15:01 Dose: 650 mg Albuterol/Ipratropium (Duoneb 3 Mg/0.5 Mg (3 Ml) Ud) 3 ml IH Q2H PRN PRN Reason: Shortness of Breath Amlodipine Besylate (Norvasc) 10 mg PO DAILY [facility] Last Admin: 01/29/17 11:02 Dose: 10 mg Arformoterol Tartrate (Brovana) 15 mcg IH [id number] [facility] Last Admin: 01/30/17 07:41 Dose: 15 mcg Benzonatate (Tessalon Perles) 100 mg PO TID [facility] Last Admin: 01/29/17 18:27 Dose: 100 mg Budesonide (Pulmicort Respules) 0.5 mg IH BIDRESP [facility] Last Admin: 01/30/17 07:41 Dose: 0.5 mg Calcium Carbonate (Caltrate) 600 mg PO BID [facility] Last Admin: 01/29/17 18:26 Dose: 600 mg Docusate Sodium (Colace) 100 mg PO TID [facility] Last Admin: 01/29/17 18:26 Dose: 100 mg Doxercalciferol (Hectorol) 0.5 mcg PO DAILY [facility] Last Admin: 01/29/17 09:11 Dose: 0.5 mcg Ergocalciferol (Drisdol 50,000 Intl Units Cap) 1 cap PO Q7D [facility] Last Admin: 01/26/17 10:15 Dose: 1 cap Fentanyl (Duragesic) 1 patch TD Q72H [facility] Fentanyl (Duragesic) 2 patch TD Q72H [facility] Last Admin: 01/29/17 18:16 Dose: 2 patch Guaifenesin/Codeine Phosphate (Robitussin W/Codeine) 5 ml PO Q6 [facility] Last Admin: 01/30/17 05:42 Dose: 5 ml Heparin Sodium (Porcine) (Heparin) 5,000 units SC 0600,1800 [facility] PRN Reason: Protocol Last Admin: 01/30/17 05:41 Dose: 5,000 units Hydromorphone HCl (Dilaudid) 2 mg IVP Q3H PRN PRN Reason: Pain, moderate (4-7) Last Admin: 01/30/17 08:22 Dose: 2 mg Lidocaine HCl (Xylocaine 2%) 1 ea TOP BID PRN; Protocol PRN Reason: Pain, Mild (1-3) Last Admin: 01/29/17 20:30 Dose: 1 applic Megestrol Acetate (Megace) 200 mg PO DAILY [facility] Last Admin: 01/29/17 10:59 Dose: 200 mg Methylprednisolone (Solu-Medrol) 20 mg IVP 0600,1800 [facility] Last Admin: 01/30/17 05:42 Dose: 20 mg Metoprolol Tartrate (Lopressor) 50 mg PO BRKDIN [facility] Last Admin: 01/30/17 08:19 Dose: 50 mg Ondansetron HCl (Zofran Inj) 4 mg IVP Q4H PRN PRN Reason: Nausea/Vomiting Oxycodone HCl (Oxycodone Immediate Release Tab) 10 mg PO Q4 PRN PRN Reason: Pain, severe (8-10) Last Admin: 01/29/17 20:15 Dose: 10 mg Polyethylene Glycol (Miralax) 17 gm PO DAILY [facility] Last Admin: 01/29/17 10:55 Dose: 17 gm Pregabalin (Lyrica) 25 mg PO BID [facility] Last Admin: 01/29/17 18:25 Dose: 25 mg Tiotropium [place] (Spiriva) 18 mcg IH DAILY [facility] Last Admin: 01/29/17 09:14 Dose: 18 mcg - Labs Labs: 01/30/17 06:57 01/30/17 06:57 - Constitutional Appears: Non-toxic, No Acute Distress - Head Exam Head Exam: NORMAL INSPECTION - ENT Exam ENT Exam: Mucous Membranes Moist - Neck Exam Neck Exam: absent: Meningismus - Respiratory Exam Respiratory Exam: Decreased Breath Sounds - Cardiovascular Exam Cardiovascular Exam: +S1, +S2 - GI/Abdominal Exam GI & Abdominal Exam: Soft. absent: Tenderness Assessment and Plan - Assessment and Plan (Free Text) Plan: Assessment Hematuria and urinary frequency, probably UTI with Proteus, clinically improved and S/P treatment with antibiotics lung infiltrates on CT chest cannot R/O healthcare-associated pneumonia, clinically improving Right lung mass, which is poorly-differentiated non-small cell lung cancer on pathology S/P biopsy 10/16/2016 on radiotherapy and chemotherapy COPD Plan continue to monitor off antibiotics since he is at risk for hospital-acquired infections biopsy results of the kidney showing tubular necrosis and IgA nephropathy (no BK virus noted)
--- NOTE | 2017-01-30 16:30 | CP.PCM.PN ---
Subjective - Date & Time of Evaluation Date of Evaluation: 01/30/17 Time of Evaluation: 16:24 - Subjective Subjective: Pt is being discharged,needs midline removed. Using aseptic precautions,the same was done.Pressure dressing applied. Objective - Vital Signs/Intake and Output Vital Signs (last 24 hours): Temp Pulse Resp BP Pulse Ox 98.7 F 78 15 131/76 100 01/29/17 16:59 01/30/17 08:19 01/29/17 16:59 01/30/17 10:13 01/28/17 17:00 Intake and Output: 01/30/17 01/30/17 06:59 18:59 Intake Total 180 Output Total 600 Balance -420 - Medications Medications: Current Medications Acetaminophen (Tylenol 325mg Tab) 650 mg PO Q4H PRN PRN Reason: Fever >100.4 F Last Admin: 01/22/17 15:01 Dose: 650 mg Albuterol/Ipratropium (Duoneb 3 Mg/0.5 Mg (3 Ml) Ud) 3 ml IH Q2H PRN PRN Reason: Shortness of Breath Amlodipine Besylate (Norvasc) 10 mg PO DAILY [facility] Last Admin: 01/30/17 10:13 Dose: 10 mg Arformoterol Tartrate (Brovana) 15 mcg IH [id number] [facility] Last Admin: 01/30/17 07:41 Dose: 15 mcg Benzonatate (Tessalon Perles) 100 mg PO TID [facility] Last Admin: 01/30/17 15:51 Dose: Not Given Budesonide (Pulmicort Respules) 0.5 mg IH BIDRESP [facility] Last Admin: 01/30/17 07:41 Dose: 0.5 mg Calcium Carbonate (Caltrate) 600 mg PO BID [facility] Last Admin: 01/30/17 10:09 Dose: 600 mg Docusate Sodium (Colace) 100 mg PO TID [facility] Last Admin: 01/30/17 15:49 Dose: Not Given Doxercalciferol (Hectorol) 0.5 mcg PO DAILY [facility] Last Admin: 01/30/17 10:10 Dose: 0.5 mcg Ergocalciferol (Drisdol 50,000 Intl Units Cap) 1 cap PO Q7D [facility] Last Admin: 01/26/17 10:15 Dose: 1 cap Fentanyl (Duragesic) 1 patch TD Q72H [facility] Fentanyl (Duragesic) 2 patch TD Q72H [facility] Last Admin: 01/29/17 18:16 Dose: 2 patch Guaifenesin/Codeine Phosphate (Robitussin W/Codeine) 5 ml PO Q6 [facility] Last Admin: 01/30/17 12:05 Dose: Not Given Heparin Sodium (Porcine) (Heparin) 5,000 units SC 0600,1800 [facility] PRN Reason: Protocol Last Admin: 01/30/17 05:41 Dose: 5,000 units Hydromorphone HCl (Dilaudid) 2 mg IVP Q3H PRN PRN Reason: Pain, moderate (4-7) Last Admin: 01/30/17 15:49 Dose: 2 mg Lidocaine HCl (Xylocaine 2%) 1 ea TOP BID PRN; Protocol PRN Reason: Pain, Mild (1-3) Last Admin: 01/29/17 20:30 Dose: 1 applic Megestrol Acetate (Megace) 200 mg PO DAILY [facility] Last Admin: 01/30/17 10:12 Dose: 200 mg Methylprednisolone (Solu-Medrol) 20 mg IVP 0600,1800 [facility] Last Admin: 01/30/17 05:42 Dose: 20 mg Metoprolol Tartrate (Lopressor) 50 mg PO BRKDIN [facility] Last Admin: 01/30/17 08:19 Dose: 50 mg Ondansetron HCl (Zofran Inj) 4 mg IVP Q4H PRN PRN Reason: Nausea/Vomiting Oxycodone HCl (Oxycodone Immediate Release Tab) 10 mg PO Q4 PRN PRN Reason: Pain, severe (8-10) Last Admin: 01/29/17 20:15 Dose: 10 mg Polyethylene Glycol (Miralax) 17 gm PO DAILY [facility] Last Admin: 01/30/17 10:13 Dose: 17 gm Pregabalin (Lyrica) 25 mg PO BID [facility] Last Admin: 01/30/17 10:12 Dose: 25 mg Tiotropium [place] (Spiriva) 18 mcg IH DAILY [facility] Last Admin: 01/30/17 10:14 Dose: 18 mcg - Labs Labs: 01/30/17 06:57 01/30/17 06:57
[2017-01-30 16:32] VITALS: BP 119/69; PULSE 87; RESP 20; TEMP 97.3; O2SAT 98
--- NOTE | 2017-01-31 10:08 | PN ---
DATE: 01/30/2017 PULMONARY PROGRESS NOTE REFERRING PHYSICIAN: Dr. Fermin. SUBJECTIVE: Patient is lying in the bed, feels better, still has a shoulder, upper back pain, no cough, no sputum production, no nausea, no vomiting, no diarrhea. No leg pain or leg swelling. He has been discharged home today. PHYSICAL EXAMINATION GENERAL: No acute distress. VITAL SIGNS: Temperature is 98, heart rate is 87, respiratory rate is 20, blood pressure 119/69, pulse ox 98% on 2 liters nasal cannula. HEENT: Moist mucous membrane. No oral thrush. NECK: Supple. No JVD. LUNGS: Fair air flow with few rhonchi. HEART: S1 and S2. ABDOMEN: Soft and nontender. No organomegaly. EXTREMITIES: No edema. NEUROLOGIC: Awake and alert. Follows simple command. MEDICATIONS: Reviewed. No new changes in medication. LABORATORY DATA: Shows hemoglobin 10.9, hematocrit 33.9, WBC of 13.4, platelet is 257. Sodium 139, potassium 3.6, chloride 106, bicarbonate 22, BUN 35, creatinine 1.7, glucose 146, calcium is 8.0, AST 31, ALT 30, albumin is 3.1. ASSESSMENT AND PLAN: Metastatic lung cancer, chronic obstructive lung disease, mets to the spine, resolving pneumonia, improving renal function, has hematuria, chronic pain syndrome. Case discussed with Dr. Fermin. Patient will be discharged home today with the family. Overall poor prognosis. We will get chemotherapy with Dr. Leary as an outpatient. Continue pain management. High risk for falls. Elisabet Pelaez MD
--- NOTE | 2017-02-03 09:30 | CP.PCM.PN ---
Subjective - Date & Time of Evaluation Date of Evaluation: 01/29/17 Time of Evaluation: 12:00 - Subjective Subjective: getting chemotherapy pain meds adjusted increase patch 200 pedro luis / 3 days, right arm getting weaker. Objective - Vital Signs/Intake and Output Vital Signs (last 24 hours): Temp Pulse Resp BP Pulse Ox 97.3 F L 87 20 119/69 98 01/30/17 16:31 01/30/17 17:24 01/30/17 16:31 01/30/17 17:24 01/30/17 16:31 - Labs Labs: 01/30/17 06:57 01/30/17 06:57 - Constitutional Appears: Non-toxic, Cachectic, Chronically Ill - Head Exam Head Exam: ATRAUMATIC - Eye Exam Eye Exam: EOMI, Normal appearance - Neck Exam Neck Exam: Full ROM, Normal Inspection - Respiratory Exam Additional comments: decrease breath sound on the rt side - Cardiovascular Exam Cardiovascular Exam: REGULAR RHYTHM - GI/Abdominal Exam GI & Abdominal Exam: Normal Bowel Sounds - Extremities Exam Extremities Exam: Full ROM, Normal Inspection Additional comments: right arm weakness Assessment and Plan (1) Acute on chronic renal failure Status: Acute (2) Chest pain Status: Acute (3) Community acquired bacterial pneumonia Status: Acute (4) Edema of both legs Status: Acute (5) Hematuria Status: Acute (6) Intractable pain Status: Acute (7) Lung cancer Status: Acute - Assessment and Plan (Free Text) Plan: increase pain meds, neurosurgical consults continue current treatment discussed patient, and family.
--- NOTE | 2017-02-03 09:34 | CP.PCM.DIS ---
Provider - Provider Date of Admission: 01/21/17 20:11 Attending physician: Gary Fermin MD Primary care physician: [facility] PROVID[facility] Time Spent in preparation of Discharge (in minutes): 30 Diagnosis - Discharge Diagnosis (1) Acute on chronic renal failure Status: Acute (2) Chest pain Status: Acute (3) Community acquired bacterial pneumonia Status: Acute (4) Edema of both legs Status: Acute (5) Hematuria Status: Acute (6) Intractable pain Status: Acute (7) Lung cancer Status: Acute Hospital Course - Lab Results Lab Results: Micro Results 01/25/17 18:59 Urine Urine Culture - Final No Growth (<1,000 CFU/ML) Most Recent Lab Values WBC 13.4 10^3/ul (4.5-11.0) H 01/30/17 06:57 RBC 3.71 10^6/uL (3.5-6.1) 01/30/17 06:57 Hgb 10.9 g/dL (14.0-18.0) L 01/30/17 06:57 Hct 33.9 % (42.0-52.0) L 01/30/17 06:57 MCV 91.4 fl (80.0-105.0) 01/30/17 06:57 MCH 29.4 pg (25.0-35.0) 01/30/17 06:57 MCHC 32.2 g/dl (31.0-37.0) 01/30/17 06:57 RDW 18.2 % (11.5-14.5) H 01/30/17 06:57 Plt Count 257 10^3/uL (120.0-450.0) 01/30/17 06:57 MPV 9.8 fl (7.0-11.0) 01/30/17 06:57 Gran % 82.9 % (50.0-68.0) H 01/30/17 06:57 Lymph % (Auto) 7.2 % (22.0-35.0) L 01/30/17 06:57 Robertson % (Auto) 9.9 % (1.0-6.0) H 01/30/17 06:57 Eos % (Auto) 0.0 % (1.5-5.0) L 01/30/17 06:57 Baso % (Auto) 0.0 % (0.0-3.0) 01/30/17 06:57 Gran # 11.07 (1.4-6.5) H 01/30/17 06:57 Lymph # 1.0 (1.2-3.4) L 01/30/17 06:57 Robertson # 1.3 (0.1-0.6) H 01/30/17 06:57 Eos # 0.0 (0.0-0.7) 01/30/17 06:57 Baso # 0.00 K/mm3 (0.0-2.0) 01/30/17 06:57 Neutrophils % (Manual) 95 % (50.0-70.0) H 01/23/17 08:22 Lymphocytes % (Manual) 3 % (22.0-35.0) L 01/23/17 08:22 Monocytes % (Manual) 2 % (1.0-6.0) 01/23/17 08:22 Toxic Granulation Slight 01/23/17 08:22 Platelet Evaluation Low (NORMAL) 01/23/17 08:22 Hypochromasia Slight 01/23/17 08:22 Anisocytosis (manual) Slight 01/23/17 08:22 Sodium 139 mmol/L (132-148) 01/30/17 06:57 Potassium 3.6 mmol/L (3.6-5.0) 01/30/17 06:57 Chloride 106 mmol/L (98-107) 01/30/17 06:57 Carbon Dioxide 22 mmol/L (21-33) 01/30/17 06:57 Anion Gap 15 (10-20) 01/30/17 06:57 BUN 35 mg/dL (7-21) H 01/30/17 06:57 Creatinine 1.7 mg/dL (0.5-1.4) H 01/30/17 06:57 Est GFR ( Amer) 50 01/30/17 06:57 Est GFR (Non-Af Amer) 42 01/30/17 06:57 Random Glucose 146 mg/dL (70-110) H 01/30/17 06:57 Calcium 8.0 mg/dL (8.4-10.5) L 01/30/17 06:57 Iron 42 ug/dL (45-180) L 01/26/17 07:00 TIBC 112 ug/dL (261-462) L 01/26/17 07:00 % Saturation 37 % (20-55) 01/26/17 07:00 Ferritin 1090.0 ng/mL 01/26/17 07:00 Total Bilirubin 0.7 mg/dL (0.2-1.3) 01/30/17 06:57 AST 31 U/L (15-59) 01/30/17 06:57 ALT 30 U/L (7-56) 01/30/17 06:57 Alkaline Phosphatase 61 U/L (38-133) 01/30/17 06:57 Total Protein 6.0 g/dL (5.8-8.3) 01/30/17 06:57 Albumin 3.1 g/dL (3.0-4.8) 01/30/17 06:57 Globulin 2.9 gm/dL 01/30/17 06:57 Albumin/Globulin Ratio 1.1 (1.1-1.8) 01/30/17 06:57 Urine Color Light red (YELLOW) 01/25/17 18:59 Urine Appearance Clear (CLEAR) 01/25/17 18:59 Urine pH 7.5 (4.7-8.0) 01/25/17 18:59 Ur Specific [place] 1.010 (1.005-1.035) 01/25/17 18:59 Urine Protein 100 mg/dL (<30 mg/dL) H 01/25/17 18:59 Urine Glucose (UA) Negative mg/dL (NEGATIVE) 01/25/17 18:59 Urine Ketones Negative mg/dL (NEGATIVE) 01/25/17 18:59 Urine Blood Large (NEGATIVE) H 01/25/17 18:59 Urine Nitrate Negative (NEGATIVE) 01/25/17 18:59 Urine Bilirubin Negative (NEGATIVE) 01/25/17 18:59 Urine Urobilinogen 0.2 E.U./dL (<1 E.U./dL) 01/25/17 18:59 Ur Leukocyte Esterase Negative Darcie/uL (NEGATIVE) 01/25/17 18:59 Urine RBC Tntc /hpf (0-2) 01/25/17 18:59 Urine WBC 5 - 10 /hpf (0-6) 01/25/17 18:59 Ur Epithelial Cells 4 - 5 /hpf (0-5) 01/25/17 18:59 Hepatitis A IgM Ab Negative (NEGATIVE) 01/30/17 06:57 Hep Bs Antibody Negative (NEGATIVE) 01/30/17 06:57 Hep B Core IgM Ab Negative (NEGATIVE) 01/30/17 06:57 Hepatitis C Antibody Negative (NEGATIVE) 01/30/17 06:57 HIV 1&2 Ag/Ab, 4th Gen Nonreactive (Nonreactive) 01/30/17 05:00 - Hospital Course Hospital Course: patient stable on pain meds diladid q 3h, , seen by multiple specialists, given chemotherapy, Discharge Exam - Head Exam Head Exam: ATRAUMATIC, NORMAL INSPECTION, NORMOCEPHALIC - Eye Exam Eye Exam: EOMI, Normal appearance - Respiratory Exam Respiratory Exam: NORMAL BREATHING PATTERN Additional comments: decrease breath sound on the rt lung - Cardiovascular Exam Cardiovascular Exam: REGULAR RHYTHM - GI/Abdominal Exam GI & Abdominal Exam: Normal Bowel Sounds - Back Exam Back exam: paraspinal tenderness - Neurological Exam Neurological exam: Alert, CN II-XII Intact, Oriented x3 - Psychiatric Exam Psychiatric exam: Normal Affect, Normal Mood - Skin Skin Exam: Normal Color Discharge Plan - Follow Up Plan Condition: GOOD Disposition: HOME/ ROUTINE Instructions: Acute Kidney Injury (DC), Lung Cancer (DC), Using Oxygen at Home (DC), Acute Hematuria (DC) Additional Instructions: Follow up with primary care provider within a week. Continue all medications as prescribed. Referrals: PCP,NO [Primary Care Provider] -
== END 2017-01-30 18:37 | disposition home or self-care (01) | DRG 194 ==
LOC: TRCU 20:11
PROVIDERS: ADMIT Internal Medicine; ATTEND Internal Medicine
PROC: F07Z9ZZ Gait Training/Functional Ambulation Treatment (ICD-10-PCS; principal; 2017-01-24)
PROC: F07Z5ZZ Bed Mobility Treatment (ICD-10-PCS; 2017-01-24)
PROC: F07Z8ZZ Transfer Training Treatment (ICD-10-PCS; 2017-01-24)
PROC: F08Z3FZ Feeding/Eating Treatment using Assistive, Adaptive, Supportive or Protective Equipment (ICD-10-PCS; 2017-01-28)
DX: J18.9 Pneumonia, unspecified organism (principal); C34.91 Malignant neoplasm of unspecified part of right bronchus or lung; C79.51 Secondary malignant neoplasm of bone; J44.0 Chronic obstructive pulmonary disease with (acute) lower respiratory infection; N02.8 Recurrent and persistent hematuria with other morphologic changes; N39.0 Urinary tract infection, site not specified; R64 Cachexia; R62.7 Adult failure to thrive; D64.9 Anemia, unspecified; G89.4 Chronic pain syndrome; F17.200 Nicotine dependence, unspecified, uncomplicated; Y95 Nosocomial condition; Z68.24 Body mass index [BMI] 24.0-24.9, adult; Z88.0 Allergy status to penicillin

== ENCOUNTER 2017-02-16 18:53 | Inpatient (IN) | payer MEDICARE, MEDICAID ==
[2017-02-16 18:59] VITALS: BMI 19.5
[2017-02-16] MEDS ORDERED: HYDROmorphone 2 mg/ml ISec IVP STA ×2 (19:21→21:14)
[2017-02-16 20:27] LABS: HEMATOCRIT 32.4 % (42.0-52.0); MEAN CELL VOLUME 88.3 fl (80.0-105.0); MEAN CORPUSCULAR HEMOGLOBIN 29.2 pg (25.0-35.0); MEAN PLATELET VOLUME 10.6 fl (7.0-11.0); PLATELET COUNT 150 10^3/uL (120.0-450.0); RED CELL DISTRIBUTION WIDTH 19.2 % (11.5-14.5); WHITE BLOOD COUNT 9.2 10^3/ul (4.5-11.0)
[2017-02-16 20:33] LABS: ALB/GLOB RATIO 1.1 (1.1-1.8); BILIRUBIN,TOTAL 0.4 mg/dL (0.2-1.3); CALCIUM 8.1 mg/dL (8.4-10.5); TOTAL PROTEIN 6.3 g/dL (5.8-8.3)
[2017-02-16 20:44] LABS: TROPONIN I 0.04 ng/mL
[2017-02-16 20:46] LABS: POTASSIUM 2.8 mmol/L (3.6-5.0)
[2017-02-16] MEDS: Sodium Chloride 0.9% 1,000 ML IV SCH (20:48)
--- NOTE | 2017-02-16 21:25 | ED PDOC ---
Arrival/HPI - General Chief Complaint: Trauma Time Seen by Provider: 02/16/17 19:01 Historian: Patient - History of Present Illness Narrative History of Present Illness (Text): 02/16/17 19:01 Marc Tate is a 56 year old male, whose past medical history includes metastatic cancer and anorexia, who presents to the emergency department complaining of right sided body pain, chest pain, and weakness today. Patient denies any fever, chills, chest pain, shortness of breath, nausea, vomiting, diarrhea, urinary symptoms, back pain, neck pain, headache, dizziness, or any other complaints. PMD: Dr. Fermin Time/Duration: 24 hours Symptom Onset: Gradual Symptom Course: Unchanged Severity Level: Mild Activities at Onset: Light Context: Home Past Medical History - Provider Review Nursing Documentation Reviewed: Yes - Infectious Disease Hx of Infectious Diseases: None - Cardiac Hx Cardiac Disorders: No - Pulmonary Hx Chronic Obstructive Pulmonary Disease (COPD): Yes Hx Lung Cancer: Yes - Neurological Hx Neurological Disorder: No - HEENT Hx HEENT Disorder: No - Renal Hx Renal Failure: Yes - Endocrine/Metabolic Hx Endocrine Disorders: No - Hematological/Oncological Hx Blood Disorders: Yes - Integumentary Other/Comment: BILATERAL PITTNG EDEMA T0 FOOT +2 MORE TO RIGHT. - Musculoskeletal/Rheumatological Hx Unsteady Gait: Yes - Gastrointestinal Hx Gastrointestinal Disorders: No - Genitourinary/Gynecological Hx Hematuria: Yes (01-14-17) - Psychiatric Hx Psychophysiologic Disorder: Yes Hx Depression: Yes Hx Substance Use: No - Surgical History Hx Musculoskeletal Surgery: Yes (plate placed in back) Hx Orthopedic Surgery: Yes (R shoulder) Other/Comment: L arm port - Anesthesia Hx Anesthesia: Yes Hx Anesthesia Reactions: No Hx Malignant Hyperthermia: No Family/Social History - Physician Review Nursing Documentation Reviewed: Yes Family/Social History: No Known Family HX Smoking Status: Former Smoker Hx Alcohol Use: No Hx Substance Use: No Allergies/Home Meds Allergies/Adverse Reactions: Allergies Penicillins Allergy (Verified 01/22/17 03:17) ANAPHYLAXIS Home Medications: Home Meds Medication Instructions Recorded Confirmed oxyCODONE [oxyCODONE Immediate 30 mg PO Q4H PRN 11/03/16 02/16/17 Release Tab] tiZANidine [Zanaflex] 4 mg PO Q6 11/03/16 02/16/17 fentaNYL 50 mcg/hr [Duragesic 200 mcg TD Q72H 12/11/16 02/16/17 Patch 50 mcg/hr] Cholecalciferol [Vitamin D 1000 IU] 0 iu PO QWK 12/30/16 02/16/17 Folic Acid 1 mg PO DAILY 12/30/16 02/16/17 Furosemide [Lasix] 20 mg PO DAILY 12/30/16 02/16/17 Gabapentin [Neurontin] 300 mg PO QID 12/30/16 02/16/17 Megestrol Acetate [Megace] 40 mg PO BID 12/30/16 02/16/17 Montelukast [Singulair] 10 mg PO DAILY 12/30/16 02/16/17 Nystatin [Nystatin Oral Susp] 100,000 unit PO TID 12/30/16 02/16/17 Lidocaine/Aloe Vera [Aloe 5 % TOP PRN PRN 01/14/17 02/16/17 Vera-Lidocaine Gel] Morphine Sulfate [Ms Contin] 15 mg PO PRN PRN 01/14/17 02/16/17 Pantoprazole [Protonix] 40 mg PO DAILY 01/14/17 02/16/17 Review of Systems - Physician Review All systems were reviewed & negative as marked: Yes - Review of Systems Constitutional: Other (right sided body pain; generalized weakness) Eyes: absent: Vision Changes, Photophobia ENT: absent: Hearing Changes Respiratory: absent: SOB, Cough Cardiovascular: Chest Pain Gastrointestinal: absent: Abdominal Pain Genitourinary Male: absent: Dysuria, Frequency Musculoskeletal: absent: Arthralgias, Back Pain Skin: absent: Rash, Pruritis Neurological: absent: Headache, Dizziness Endocrine: absent: Diaphoresis Hemo/Lymphatic: absent: Adenopathy Physical Exam Vital Signs Reviewed: Yes Vital Signs Temp Pulse Resp BP Pulse Ox 02/16/17 22:00 17 97 02/16/17 21:00 77 16 122/75 95 02/16/17 19:10 98.5 F 76 18 141/77 95 02/16/17 19:01 98.2 F 94 H 18 143/85 93 L Temperature: Afebrile Blood Pressure: Normal Pulse: Tachycardic Respiratory Rate: Normal Appearance: Positive for: Non-Toxic Pain Distress: None Mental Status: Positive for: Alert and Oriented X 3 - Systems Exam Head: Present: Atraumatic, Normocephalic Pupils: Present: PERRL Extroacular Muscles: Present: EOMI Conjunctiva: Present: Normal Mouth: Present: Moist Mucous Membranes Neck: Present: Normal Range of Motion Respiratory/Chest: Present: Clear to Auscultation, Good Air Exchange, Tender to Palpation (Chest wall tender to right side). No: Respiratory Distress, Accessory Muscle Use Cardiovascular: Present: Regular Rate and Rhythm, Tachycardic. No: Murmurs Abdomen: Present: Normal Bowel Sounds. No: Tenderness, Distention, Peritoneal Signs Back: Present: Normal Inspection Upper Extremity: Present: Normal Inspection. No: Cyanosis, Edema Lower Extremity: Present: Normal Inspection. No: Edema Neurological: Present: GCS=15, CN II-XII Intact, Speech Normal Skin: Present: Warm, Dry, Normal Color. No: Rashes Psychiatric: Present: Alert, Oriented x 3, Normal Insight, Normal Concentration Medical Decision Making ED Course and Treatment: 02/16/17 19:01 Impression: 56 year old male complaining of right sided body pain, chest pain, and weakness today. Differential Diagnosis included but are not limited to: Hypokalemia vs. weakness vs. dehydration failure to thrive Plan: -- EKG -- Chest X-ray -- Blood Culture -- Urine Culture -- Urinalysis -- Dilaudid, Potassium chloride, Zofran, and IV fluids -- Labs -- Reassess and disposition Prior Visits: Notes and results from previous visits were reviewed. Patient last seen in the ED on 01/14/17 for blood in the urine for 4 days. Patient was admitted to hospitalist care for further evaluation. Progress Notes: case d/w dr ruth Antoine accepts case 02/17/17 03:57 - Lab Interpretations Lab Results: 02/16/17 20:00 02/16/17 20:00 Lab Results 02/16/17 20:00: Sodium 138, Potassium 2.8 L* D, Chloride 98, Carbon Dioxide 28, Anion Gap 15, BUN 27 H, Creatinine 2.5 H, Est GFR ( Amer) 32, Est GFR ( Non-Af Amer) 27, Random Glucose 154 H, Calcium 8.1 L, Total Bilirubin 0.4, AST 29, ALT 24, Alkaline Phosphatase 82, Troponin I 0.04 D, Total Protein 6.3, Albumin 3.3, Globulin 3.0, Albumin/Globulin Ratio 1.1 02/16/17 20:00: WBC 9.2 D, RBC 3.67, Hgb 10.7 L D, Hct 32.4 L, MCV 88.3 D, MCH 29.2, MCHC 33.0, RDW 19.2 H, Plt Count 150, MPV 10.6, Neutrophils % (Manual ) 73 H, Band Neutrophils % 0, Lymphocytes % (Manual) 13 L, Atypical Lymphs % 4 H , Monocytes % (Manual) 5, Eosinophils % (Manual) 1, Metamyelocytes % 2, Myelocytes % 2, Immature Lymphocytes 0, Platelet Evaluation Normal, Poikilocytosis (manual Slight, Anisocytosis (manual) 1+ I have reviewed the lab results: Yes - RAD Interpretation Radiology Orders: 02/16/17 19:20 CHEST PORTABLE [RAD] Stat - Medication Orders Current Medication Orders: Albuterol/Ipratropium (Duoneb 3 Mg/0.5 Mg (3 Ml) Ud) 3 ml IH Q2H PRN PRN Reason: Shortness of Breath Last Admin: 02/17/17 01:35 Dose: 3 ml Furosemide (Lasix) 20 mg PO DAILY BRIA Gabapentin (Neurontin) 300 mg PO QID BRIA PRN Reason: Protocol Hydromorphone HCl (Dilaudid) 2 mg IVP Q4H PRN PRN Reason: Pain, moderate (4-7) Sodium Chloride (Sodium Chloride 0.9%) 1,000 mls @ 80 mls/hr IV [id number] BRIA Last Admin: 02/16/17 20:48 Dose: 80 mls/hr Hydromorphone HCl (Dilaudid-Hp 1 Mg/Ml [employer]) 25 mls @ 0.5 mls/hr IV .Q24H [facility] Last Admin: 02/16/17 23:30 Dose: 0.5 mls/hr Megestrol Acetate (Megace) 200 mg PO DAILY BRIA Montelukast Sodium (Singulair) 10 mg PO HS BRIA Pantoprazole Sodium (Protonix Ec Tab) 20 mg PO 0600 BRIA Tizanidine HCl (Zanaflex) 4 mg PO Q6 PRN PRN Reason: muscle spasm Discontinued Medications Hydromorphone HCl (Dilaudid) 2 mg IVP STAT STA Stop: 02/16/17 19:22 Last Admin: 02/16/17 20:00 Dose: 2 mg Hydromorphone HCl (Dilaudid) 2 mg IVP STAT STA Stop: 02/16/17 21:15 Last Admin: 02/16/17 21:35 Dose: 2 mg Re-Assess: REHAN Pain Assessment Document 02/16/17 22:35 PATRICIA (Rec: 02/17/17 00:50 PATRICIA [id number]) Pain Reassessment Is this a pain reassessment? Yes Sleep Is patient sleeping during reassessment? No Pain Scale Used Pain Scale Used Numeric Location Left, Right or Bilateral Right Pain Location Body Site Neck Shoulder Back Description Description Intermittent Intensity of Pain at present 9 Pain Behavior Facial Grimacing Aggravating Factors None Alleviating Factors/Management Medication Techniques Alleviating Factors Medication Potassium Chloride (Potassium Chloride 20 Meq/100 Ml) 20 meq in 100 mls @ 50 mls/hr IVPB Q2H BRIA Stop: 02/17/17 00:44 Last Admin: 02/16/17 22:59 Dose: 50 mls/hr Hydromorphone HCl (Dilaudid-Hp 1 Mg/Ml [employer]) 25 mls @ 0.5 mls/hr IV .Q24H BRIA Ondansetron HCl (Zofran Inj) 4 mg IVP STAT STA Stop: 02/16/17 19:22 Last Admin: 02/16/17 20:00 Dose: 4 mg - Scribe Statement The provider has reviewed the documentation as recorded by the Yesy Lawrence Provider Scribe Attestation: All medical record entries made by the Yesy were at my direction and personally dictated by me. I have reviewed the chart and agree that the record accurately reflects my personal performance of the history, physical exam, medical decision making, and the department course for this patient. I have also personally directed, reviewed, and agree with the discharge instructions and disposition. Disposition/Present on Arrival - Present on Arrival Any Indicators Present on Arrival: No History of DVT/PE: No History of Uncontrolled Diabetes: No Urinary Catheter: No History of Decub. Ulcer: No History Surgical Site Infection Following: None - Disposition Have Diagnosis and Disposition been Completed?: Yes Diagnosis: Intractable pain, Lung cancer, Hypokalemia Disposition: HOSPITALIZED Disposition Time: 21:00 Condition: FAIR
[2017-02-16 21:26] LABS: ATYPICAL LYMPHOCYTE 4 % (0.0-0.0); BAND 0 % (0-2); NEUTROPHIL 73 % (50.0-70.0)
[2017-02-16 21:27] LABS: ANISOCYTOSIS 1+; EOSINOPHIL 1 % (0.0-3.0); METAMYELOCYTE 2 %; MYELOCYTE 2 %; PLATELET ESTIMATE NORMAL (NORMAL); POIKILOCYTOSIS SLIGHT
[2017-02-16 21:35] LABS: PH,URINE 6.5 (4.7-8.0); URINE BILIRUBIN NEGATIVE (NEGATIVE); URINE BLOOD LARGE (NEGATIVE); URINE GLUCOSE (UA) NEGATIVE (NEGATIVE); URINE KETONE NEGATIVE (NEGATIVE); URINE LEUKOCYTE ESTERASE TRACE Leu/uL (NEGATIVE); URINE PROTEIN 100 mg/dL (<30 mg/dL); URINE UROBILINOGEN 0.2 E.U./dL (<1 E.U./dL)
[2017-02-16 22:04] LABS: URINE APPEARANCE CLOUDY (CLEAR); URINE COLOR LIGHT RED (YELLOW)
[2017-02-16 22:05] LABS: URINE BACTERIA MOD (NEG); URINE RBC TNTC /hpf (0-2)
[2017-02-16] MEDS ORDERED: HYDROmorphone 1 mg/ml PCA 25 ML IV SCH (23:00)
[2017-02-16] MEDS: HYDROmorphone 1 mg/ml PCA 25 ML IV SCH (23:30)
[2017-02-17] MEDS ORDERED: Albuterol-Ipratrop 3 mg / 0.5 (3 ml) UD IH PRN (01:19)
[2017-02-17] MEDS: Pantoprazole 20 mg EC Tab PO SCH (05:24)
[2017-02-17] MEDS: Sodium Chloride 0.9% 1,000 ML IV SCH (08:16)
[2017-02-17 08:17] LABS: BASO # 0.06 K/mm3 (0.0-2.0); BASO % 0.7 % (0.0-3.0); EOS # 0.1 (0.0-0.7); EOS % 0.7 % (1.5-5.0); GRAN # 6.17 (1.4-6.5); GRAN % 69.1 % (50.0-68.0); HEMATOCRIT 32.6 % (42.0-52.0); LYMPH % 11.4 % (22.0-35.0); MEAN CELL VOLUME 88.6 fl (80.0-105.0); MEAN CORPUSCULAR HEMOGLOBIN 29.1 pg (25.0-35.0); MEAN CORPUSCULAR HGB CONC 32.8 g/dl (31.0-37.0); MEAN PLATELET VOLUME 10.9 fl (7.0-11.0); MONO # 1.6 (0.1-0.6); MONO % 18.1 % (1.0-6.0); RED CELL DISTRIBUTION WIDTH 19.1 % (11.5-14.5); WHITE BLOOD COUNT 8.9 10^3/ul (4.5-11.0)
[2017-02-17 08:52] LABS: ALB/GLOB RATIO 1.1 (1.1-1.8); BILIRUBIN,TOTAL 0.4 mg/dL (0.2-1.3); POTASSIUM 3.1 mmol/L (3.6-5.0); TOTAL PROTEIN 6.3 g/dL (5.8-8.3)
[2017-02-17] MEDS: HYDROmorphone 2 mg/ml ISec IVP PRN ×4 (09:30→21:54)
[2017-02-17] MEDS: Megestrol Acetate 40 mg/ml Cup PO SCH (09:31)
--- NOTE | 2017-02-17 09:52 | RAD ---
HISTORY: pain COMPARISON: 01/15/2017 FINDINGS: The left PICC line terminates in the SVC. LUNGS: There is redemonstration of right apical neoplasm with destruction of the posterior right 1st and 2nd ribs and adjacent vertebrae. There are chronic changes in both lungs. No focal consolidation. PLEURA: No significant pleural effusion identified, no pneumothorax apparent. CARDIOVASCULAR: Normal. OSSEOUS STRUCTURES: No significant abnormalities. VISUALIZED UPPER ABDOMEN: Normal. OTHER FINDINGS: None. IMPRESSION: Redemonstration of right apical mass with destruction of the posterior 1st and 2nd ribs an adjacent vertebrae. Chronic changes in both lungs.
[2017-02-17] MEDS ORDERED: HYDROmorphone 1 mg/ml PCA IV SCH (10:00)
[2017-02-17] MEDS ORDERED: Magnesium Sulfate 1 gm in D5W 1 GM/100 ML BAG IVPB ONE (11:06)
--- NOTE | 2017-02-17 12:12 | CARD ---
APPROVED REPORT EKG Measurement Heart [id number] <Conclusion> Normal sinus rhythm Possible Left atrial enlargement Left ventricular hypertrophy Abnormal ECG
[2017-02-17] MEDS: HYDROmorphone 1 mg/ml PCA 25 ML IV SCH (23:36)
[2017-02-18] MEDS: Sodium Chloride 0.9% 1,000 ML IV SCH ×2 (01:52→17:46)
[2017-02-18] MEDS: HYDROmorphone 2 mg/ml ISec IVP PRN ×5 (02:04→21:08)
[2017-02-18 07:18] LABS: ALB/GLOB RATIO 0.9 (1.1-1.8); BILIRUBIN,TOTAL 0.5 mg/dL (0.2-1.3); CALCIUM 8.1 mg/dL (8.4-10.5); MAGNESIUM 1.6 mg/dL (1.7-2.2); TOTAL PROTEIN 6.4 g/dL (5.8-8.3)
[2017-02-18 07:39] VITALS: RESP 20
[2017-02-18] MEDS: Megestrol Acetate 40 mg/ml Cup PO SCH (09:24)
[2017-02-18] MEDS ORDERED: Potassium Chloride 20 mEq ER Tab PO ONE (09:46)
[2017-02-18] MEDS ORDERED: Magnesium Sulfate 1 gm in D5W 1 GM/100 ML BAG IVPB ONE (09:47)
--- NOTE | 2017-02-18 11:20 | HP ---
HISTORY OF PRESENT ILLNESS: The patient is admitted via the emergency room. 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 He is now admitted to the emergency room with increasing pain on the right side especially on his body on the right side, on the chest, scapula, and arm with a pain score of at least 9/10 along with profound weakness, failure to thrive. The patient just received his treatment with gemcitabine last week. With gemcitabine, the patient had been noted to be hyperkalemic, decided to receive one dose of Kayexalate, potassium went down and currently the patient is significantly hypokalemic and hypomagnesemic, requiring IV potassium and magnesium replacement. The patient denies fevers or chills, definitely progressively shortness of breath. No nausea. No vomiting or diarrhea. Lower extremity edema, which he had appears to be improving, significant back pain, neck pain, scapular pain, and headaches. Denies any dizziness. Very poor appetite because the pain is really very consuming. PAST MEDICAL HISTORY: Significant for the fact that he was diagnosed to have progressive metastatic stage IV non-small cell carcinoma of the lung invading on the right upper lobe directly to the contiguous spine from C7 to T1 causing encroachment on the spine for which the patient has received bisphosphonate-based therapy. Along with this, the patient also had received in addition to that several cycles of chemotherapy. Initially, carbo-Alimta and because of baseline kidney dysfunction, he had been switched over to gemcitabine, which he has receiving and he has received 2 doses on day 1, 8 and supposed to start his next cycle in a few weeks. The patient, on the PET-CT scan, obviously had disease confined to the lung with mets to the spine, but he also was found to have a genometastasis and there were other areas of bone metastases, but there was no evidence of overwhelming metastatic cancer. REVIEW OF SYSTEMS: All system review was done. Except for what is mentioned in the HPI, the rest of the review of systems was unremarkable. The patient is constipated and is on anticonstipation regimen including MiraLAX and Colace and Amitiza. The patient's pain medications included at this point in time: Duragesic patches up to 200 mcg, along with that, he was getting MS Contin plus he was getting oxycodone for pain relief as well. MEDICATIONS: The patient's home medications were reviewed and they include oxycodone, Zanaflex, fentanyl, cholecalciferol, Lasix, Neurontin, megestrol acetate, Singulair, Nystatin, lidocaine gel, morphine sulfate, MS Contin 15 mg q. 12 hours, and Protonix 40 mg daily. ALLERGIES: THE PATIENT HAS PENICILLIN ALLERGY. SOCIAL HISTORY: The patient used to be a smoker, but quit smoking since diagnosis. There is no history of alcohol abuse. PHYSICAL EXAMINATION: GENERAL: The patient is awake, alert, oriented, in significant pain. Pain score of at least 9/10. VITAL SIGNS: T-max is 98.2, pulse is 94, respirations 18, and blood pressure is 142/85. The patient is afebrile. HEENT: Head is normocephalic and atraumatic. Temporal muscle wasting is noted. Examination of the oropharynx reveals no oropharyngeal lesions. Pupils are equally reactive to light and accommodation. Examination of the tongue revealed it to be coated. There is no ulcerations. No evidence of fungal infection. NECK: Supple. There is no adenopathy. The patient has significant pain in the nape of the neck radiating to the scapula, which is very tender to touch and the pain extends down into his armpit in the right axilla going down to his right arm and forearm all the way into his hand, unable to make a fist with his right hand and his right arm is practically useless because of the pain and because of the inability secondary to loss of muscle function. Left arm is unremarkable. Left axilla is unremarkable. LUNGS: Reveals it to be clear to percussion and auscultation. HEART: Reveals the PMI to be in the fifth intercostal space inside the midclavicular line. ABDOMEN: Soft, nontender. There is no evidence of any rebound, rigidity, or guarding. Liver and spleen are not palpable. BACK: The patient has significant severe scapular pain radiating down the right arm. Pain scale is at least 9/10. NEUROLOGIC: Reveals higher functions to be normal. The patient definitely has weakness in the right hand, right arm, right forearm secondary to brachial plexus plexopathy. PSYCHIATRIC: The patient is awake, alert, and oriented, in no acute distress. LABORATORY DATA: Labs were reviewed. Today's white count is 9.2, hemoglobin 10.7, hematocrit 32.4, and platelet count of 150,000. Sodium is 138, potassium is 2.8, chloride 98, CO2 28, BUN of 27, creatinine 2.5, and blood sugar of 154. ASSESSMENT NOTES AND PLAN: The patient has stage IV metastatic recurrent progressive stage IV non-small cell carcinoma of the lung, left brachial plexus plexopathy, failure to thrive, hypokalemia, and hypomagnesemia. Plan: The patient has had urine cultures and blood cultures drawn. The patient is going to start on the Dilaudid patient-controlled analgesia. He is also going to continue with replacing the potassium and magnesium supplements. Routine post-exam instructions have been given to the patient. Consultations have been obtained with renal doctor, and Dr. Meléndez. Along with this, we will continue current replacement and we will assess the patient for intravenous biphosphonate as well along with the patient-controlled analgesia Dilaudid, which we are going to send him home with at this point in time. Lizzie Leary MD
[2017-02-18] MEDS: POLYETHYLENE GLYCOL 3350 17 GM/Dose PACKET PO SCH (17:44)
[2017-02-19] MEDS: HYDROmorphone 2 mg/ml ISec IVP PRN ×3 (01:56→14:48)
[2017-02-19] MEDS: Pantoprazole 20 mg EC Tab PO SCH (06:09)
[2017-02-19] MEDS: Sodium Chloride 0.9% 1,000 ML IV SCH ×2 (06:59→20:31)
[2017-02-19 08:08] LABS: HEMATOCRIT 32.4 % (42.0-52.0); MEAN CELL VOLUME 88.8 fl (80.0-105.0); MEAN CORPUSCULAR HEMOGLOBIN 28.5 pg (25.0-35.0); MEAN CORPUSCULAR HGB CONC 32.1 g/dl (31.0-37.0); MEAN PLATELET VOLUME 10.1 fl (7.0-11.0); WHITE BLOOD COUNT 9.3 10^3/ul (4.5-11.0)
[2017-02-19 08:27] LABS: CALCIUM 8.2 mg/dL (8.4-10.5); MAGNESIUM 1.7 mg/dL (1.7-2.2); POTASSIUM 3.4 mmol/L (3.6-5.0)
[2017-02-19] MEDS: Megestrol Acetate 40 mg/ml Cup PO SCH (09:17)
[2017-02-19] MEDS: Potassium Chloride 20 mEq ER Tab PO SCH (09:17)
[2017-02-19] MEDS: POLYETHYLENE GLYCOL 3350 17 GM/Dose PACKET PO SCH (09:18)
[2017-02-19] MEDS ORDERED: Magnesium Sulfate 1 gm in D5W 1 GM/100 ML BAG IVPB ONE (10:00)
[2017-02-19] MEDS ORDERED: HYDROmorphone 1 mg/ml PCA 25 ML IV SCH (10:02)
--- NOTE | 2017-02-19 11:07 | PN ---
CONTINUATION OF DICTATION DATE: 02/18/2017 ASSESSMENT NOTES AND PLAN: The patient has progressive hypokalemia, hypomagnesemia which is being corrected. The patient has intractable pain. He has been started on LEGAL TRANSCRIBER Dilaudid, he got a total of 24 mg in 24 hours. We are trying to adjust the dose of Dilaudid so that his pain score from 9 can come down to at least 5 before we plan on letting him go home. I had a meeting with the discharge planning nurses and a home agency, the plan is to give him some place for him to continue LEGAL TRANSCRIBER Dilaudid in the home situation so that he does not have to come back and forth for increasing pain. The patient is also going to be spoken to by the palliative care nurse, , to see what are other alternatives are and we are going to speak to the sister as well to see how far the family wants us to proceed, whether the patient should be a candidate for hospice as well, especially in view of the fact that his pain is so excruciating and that we are not making much progress as far as his cancer management is concerned. Lizzie Leary MD
--- NOTE | 2017-02-19 12:11 | CP.PCM.CON ---
History of Present Illness - History of Present Illness History of Present Illness: Palliative consult requested by Dr Sam Leary Reason: Goals of care 56 year old male with history of metastatic lung cancer who presented with right sided upper body /chest pain and weakness.He denied efver shortness of breath, nausea, vomiting or headache PMHX: COPD, lower extremity edema, cachexia, s/p right back/shoulder surgery, hematuria, intractable pain Family History: Non contributory Social History: Former smoker, no alcohol or drug use. Lives independently. His sister, Nadira Garduno is supportive Review of Systems: As per HPI Review of Systems - Constitutional Constitutional: Weakness Past Patient History - Infectious Disease Hx of Infectious Diseases: None - Past Social History Smoking Status: Former Smoker - CARDIAC Hx Cardiac Disorders: No - PULMONARY Hx Chronic Obstructive Pulmonary Disease (COPD): Yes Hx Lung Cancer: Yes - NEUROLOGICAL Hx Neurological Disorder: No - HEENT Hx HEENT Problems: No - RENAL Hx Renal Failure: Yes - ENDOCRINE/METABOLIC Hx Endocrine Disorders: No - HEMATOLOGICAL/ONCOLOGICAL Hx Blood Disorders: Yes - INTEGUMENTARY Other/Comment: BILATERAL PITTNG EDEMA T0 FOOT +2 MORE TO RIGHT. - MUSCULOSKELETAL/RHEUMATOLOGICAL Hx Unsteady Gait: Yes - GASTROINTESTINAL Hx Gastrointestinal Disorders: No - GENITOURINARY/GYNECOLOGICAL Hx Hematuria: Yes (01-14-17) - PSYCHIATRIC Hx Psychophysiologic Disorder: Yes Hx Depression: Yes Hx Substance Use: No - SURGICAL HISTORY Hx Musculoskeletal Surgery: Yes (plate placed in back) Hx Orthopedic Surgery: Yes (R shoulder) Other/Comment: L arm port - ANESTHESIA Hx Anesthesia: Yes Hx Anesthesia Reactions: No Hx Malignant Hyperthermia: No Meds Allergies/Adverse Reactions: Allergies Allergy/AdvReac Type Severity Reaction Status Date / Time Penicillins Allergy ANAPHYLAXIS Verified 01/22/17 03:17 - Medications Medications: Current Medications Albuterol/Ipratropium (Duoneb 3 Mg/0.5 Mg (3 Ml) Ud) 3 ml IH Q2H PRN PRN Reason: Shortness of Breath Last Admin: 02/17/17 01:35 Dose: 3 ml Docusate Sodium (Colace) 100 mg PO BID [facility] Last Admin: 02/19/17 09:16 Dose: 100 mg Furosemide (Lasix) 20 mg PO DAILY [facility] Last Admin: 02/19/17 09:16 Dose: 20 mg Gabapentin (Neurontin) 300 mg PO QID [facility] PRN Reason: Protocol Last Admin: 02/19/17 09:17 Dose: 300 mg Hydromorphone HCl (Dilaudid) 2 mg IVP Q4H PRN PRN Reason: Pain, moderate (4-7) Last Admin: 02/19/17 06:08 Dose: 2 mg Sodium Chloride (Sodium Chloride 0.9%) 1,000 mls @ 80 mls/hr IV .[id number] [facility] Last Admin: 02/19/17 06:59 Dose: 80 mls/hr Hydromorphone HCl (Dilaudid-Hp 1 Mg/Ml Audiology Technician) 25 mls @ 0.6 mls/hr IV .Q24H [facility] Last Admin: 02/19/17 11:59 Dose: 0.6 mls/hr Megestrol Acetate (Megace) 200 mg PO DAILY [facility] Last Admin: 02/19/17 09:17 Dose: 200 mg Montelukast Sodium (Singulair) 10 mg PO HS [facility] Last Admin: 02/18/17 21:10 Dose: 10 mg Pantoprazole Sodium (Protonix Ec Tab) 20 mg PO 0600 [facility] Last Admin: 02/19/17 06:09 Dose: 20 mg Polyethylene Glycol (Miralax) 17 gm PO DAILY [facility] Last Admin: 02/19/17 09:18 Dose: 17 gm Potassium Chloride (K-Dur 20 Meq Er Tab) 20 meq PO BRK [facility] Last Admin: 02/19/17 09:17 Dose: 20 meq Tizanidine HCl (Zanaflex) 4 mg PO Q6 PRN PRN Reason: muscle spasm Physical Exam - Constitutional Appears: Cachectic, Chronically Ill - Head Exam Head Exam: NORMAL INSPECTION - Eye Exam Eye Exam: Normal appearance, PERRL - ENT Exam ENT Exam: Mucous Membranes Moist - Neck Exam Neck exam: Positive for: Normal Inspection - Respiratory Exam Respiratory Exam: Decreased Breath Sounds, NORMAL BREATHING PATTERN - Cardiovascular Exam Cardiovascular Exam: REGULAR RHYTHM, +S1, +S2 - GI/Abdominal Exam GI & Abdominal Exam: Normal Bowel Sounds, Soft - Extremities Exam Extremities exam: Positive for: pedal pulses present Additional comments: 1+ edema of lower extremities R>L - Back Exam Back exam: vertebral tenderness - Neurological Exam Neurological exam: Alert, Oriented x3 - Skin Skin Exam: Dry, Pallor - Additional Findings Additional findings: Palliative performance scale rating 40 % Results - Vital Signs Recent Vital Signs: Last Vital Signs Temp 98.9 F 02/19/17 08:00 Pulse 96 H 02/19/17 08:00 Resp 20 02/19/17 08:00 BP 125/88 02/19/17 09:16 Pulse Ox 96 02/19/17 08:00 - Labs Result Diagrams: 02/19/17 08:00 02/20/17 07:03 Labs: Laboratory Results - last 24 hr 02/19/17 02/19/17 08:00 08:00 WBC 9.3 RBC 3.65 Hgb 10.4 L Hct 32.4 L MCV 88.8 MCH 28.5 MCHC 32.1 RDW 19.0 H Plt Count 236 MPV 10.1 Sodium 142 Potassium 3.4 L Chloride 108 H Carbon Dioxide 22 Anion Gap 15 BUN 24 H Creatinine 2.0 H Est GFR ( Amer) 42 Est GFR (Non-Af Amer) 34 Random Glucose 96 Calcium 8.2 L Magnesium 1.7 Assessment & Plan - Assessment and Plan (Free Text) Assessment: 56 eleazar old male with history of lung cancer metastatic to right shoulder who presented with intractable pain in right chest and back. The patient is known to me from previous admissions at which we had prolonged advance care planning discussions. The patient request to remain full code status. He affirms this again today. Julian LOCKE and I spoke with patient and his sister Nadira, who was listening in on speaker phone today. Future goals of care and planning options were presented to the patient It was suggested that patient consider getting additional help at home. Hospice services also offered. All service options explained in detail. It was emphasized that pain management would continue to be priority in his treatment, regardless of which service he chose. It was explained that due to his intractable pain (which he states is a level of 9), he could continue with infusion pump with pain medication at home.The patient 's sister also explained these options to him. The patient decided he wants to continue cancer treatment. He does not want to go to a facility(custodial). He prefers to go home. He is also stating that he prefers to use previously prescribed pain medications rather that infusion pump. Time spent in discussion with patient/family regarding goals of care, 45 minutes Plan: Advance care planning Palliative support
--- NOTE | 2017-02-19 12:47 | PN ---
DATE: 02/18/2017 LOCATION: The patient is in room 362. SUBJECTIVE: This is a 56-year-old male with metastatic stage IV [id number] carcinoma of the lung, admitted via the emergency room with hypokalemia and intractable pain, not amenable to all the narcotics that he has been getting as an outpatient including pills and patches. The patient was also hypokalemic and hypomagnesemic, requiring potassium and magnesium replacement, which is for the reason why he was admitted. The past medical history is significant for the fact that he was diagnosed with progressive metastatic [id number] carcinoma of the lung with a tumor in the right upper lobe extending to the spine between C7 and T1, causing significant brachial plexus plexopathy with inability to use his right arm, right forearm with constant pain, which on a scale of pain score of 0-10 is at least somewhere between 9 and 10. Subjectively, the patient tells me today that his pain is still significant, which at least annoying at this point in time. PHYSICAL EXAMINATION: GENERAL: The patient is awake and alert and oriented to time, place, and person. VITAL SIGNS: Stable as stated in the chart. HEENT: Head is normocephalic and atraumatic. Temporal muscle wasting is noted. Examination of the oropharynx reveals no oropharyngeal lesions. Pupils are equally reactive to light and accommodation. The tongue is coated. There is no ulcerations. No evidence of fungal infection. NECK: Reveals no adenopathy. The patient has significant pain in the nape of the neck, radiating to the scapula, which is very tender to touch and the pain extends down to his armpit in the right axilla, going down to his right arm and forearm, all the way into his hand, where he is unable to make a fist with his right hand and his right arm is practically useless because of the pain and because of the inability secondary to loss of muscle function. Left arm is unremarkable. Left axilla is unremarkable. LUNGS: Reveals it to be clear to percussion and auscultation. HEART: Reveals PMI to be in the fifth intercostal space inside the midclavicular line. ABDOMEN: Soft. There is no evidence of rebound, rigidity, or guarding. BACK: The patient has severe scapular pain radiating down the right arm. Pain score is at least 9/10. NEUROLOGIC: Higher functions are normal. The patient has definite weakness in the right arm, right hand, right forearm secondary to brachial plexus plexopathy. PSYCHIATRIC: The patient is awake Lizzie Leary MD
[2017-02-19] MEDS ORDERED: Mineral Oil Enema 135 ml RC ONE (21:46)
[2017-02-19] MEDS ORDERED: POLYETHYLENE GLYCOL 3350 17 GM/Dose PACKET PO PRN (21:47)
[2017-02-19] MEDS ORDERED: guaiFENesin DM 100 mg-10 mg/5 ml UD PO PRN (21:47)
[2017-02-19] MEDS ORDERED: guaiFENesin DM 200 mg-20 mg/10 ml UD PO PRN (21:52)
--- NOTE | 2017-02-20 02:49 | CP.PCM.PN ---
<VALERIE CHAPPELL - Last Filed: 02/20/17 02:37> Subjective - Date & Time of Evaluation Date of Evaluation: 02/20/17 Time of Evaluation: 01:05 - Subjective Subjective: Valerie Chappell DO PGY1 - Code STAR note Subjective: 56 yo M who fell, code star called. Responded to code star, found pt lying in bed comfortably, in NAD. Fall was not witnessed. Pt reports that he fell when he tried to get up to go to the restroom. Nurse gave fleet oil enema recently, when he got up, oil came out of his rectum, and he immediately slipped on the oil. He fell backwards, hitting both his elbows on the edge of the bed. He then lied down on the ground due to the pain. Patient recalls events of the fall. Patient is now complaining of pain in both shoulders. He denies head trauma, LOC , confusion, CP, SOB, vision changes. Patient reports weakness in right arm, which he has had for a long time, 2/2 lung CA metastatic to the right chest and shoulder. Objective: Patient is AAOx4, NAD. Head NCAT. EOMI, PERRLA. Heart RRR, normal S1, S2, no M/G /R. Lungs CTA b/l. R shoulder full active ROM without pain, anterior point tenderness, mid humeral point tenderness. L shoulder full active ROM without pain, superior point tenderness. 3/5 oil well services dispatcher strength R hand, 5/5 oil well services dispatcher strength L hand, reflexes intact, 2/4. Abdomen soft, nontender. Skin no echymoses, lacerations, abrasions. A/P: Patient is s/p mechanical fall, w/o head trauma, with b/l shoulder pain. B/L shoulder XR and R humerus XR ordered, no apparent fractures, R AC joint space widening; pending official read. Unlikely to have fracture or dislocation according to physical exam findings, but reevaluate and reassess according to official read. Objective - Vital Signs/Intake and Output Vital Signs (last 24 hours): Temp Pulse Resp BP Pulse Ox 99.2 F 92 H 20 145/93 H 96 02/20/17 00:00 02/20/17 00:00 02/20/17 00:00 02/20/17 00:00 02/20/17 00:00 Intake and Output: 02/19/17 02/20/17 18:59 06:59 Intake Total 1105 780 Output Total 1300 350 Balance -195 430 - Medications Medications: Current Medications Albuterol/Ipratropium (Duoneb 3 Mg/0.5 Mg (3 Ml) Ud) 3 ml IH Q2H PRN PRN Reason: Shortness of Breath Last Admin: 02/17/17 01:35 Dose: 3 ml Docusate Sodium (Colace) 100 mg PO BID [facility] Last Admin: 02/19/17 17:39 Dose: 100 mg Furosemide (Lasix) 20 mg PO DAILY [facility] Last Admin: 02/19/17 09:16 Dose: 20 mg Gabapentin (Neurontin) 300 mg PO QID [facility] PRN Reason: Protocol Last Admin: 02/19/17 21:30 Dose: 300 mg Guaifenesin/Dextromethorphan (Robitussin Dm) 10 ml PO Q4H PRN PRN Reason: Cough Last Admin: 02/19/17 22:05 Dose: 10 ml Hydromorphone HCl (Dilaudid) 2 mg IVP Q4H PRN PRN Reason: Pain, moderate (4-7) Last Admin: 02/19/17 14:48 Dose: 2 mg Sodium Chloride (Sodium Chloride 0.9%) 1,000 mls @ 80 mls/hr IV .[id number] [facility] Last Admin: 02/19/17 20:31 Dose: 80 mls/hr Hydromorphone HCl (Dilaudid-Hp 1 Mg/Ml Traveling Freight Agent) 25 mls @ 0.6 mls/hr IV .Q24H [facility] Last Admin: 02/19/17 11:59 Dose: 0.6 mls/hr Megestrol Acetate (Megace) 200 mg PO DAILY [facility] Last Admin: 02/19/17 09:17 Dose: 200 mg Montelukast Sodium (Singulair) 10 mg PO HS [facility] Last Admin: 02/19/17 21:31 Dose: 10 mg Pantoprazole Sodium (Protonix Ec Tab) 20 mg PO 0600 [facility] Last Admin: 02/19/17 06:09 Dose: 20 mg Polyethylene Glycol (Miralax) 17 gm PO BID PRN PRN Reason: Constipation Potassium Chloride (K-Dur 20 Meq Er Tab) 20 meq PO BRK [facility] Last Admin: 02/19/17 09:17 Dose: 20 meq Tizanidine HCl (Zanaflex) 4 mg PO Q6 PRN PRN Reason: muscle spasm - Labs Labs: 02/19/17 08:00 02/19/17 08:00 <Aileen Christensen - Last Filed: 02/20/17 03:37> Objective - Vital Signs/Intake and Output Vital Signs (last 24 hours): Temp Pulse Resp BP Pulse Ox 99.2 F 107 H 20 160/70 H 95 02/20/17 00:00 02/20/17 01:10 02/20/17 01:10 02/20/17 01:10 02/20/17 01:10 Intake and Output: 02/19/17 02/20/17 18:59 06:59 Intake Total 1105 780 Output Total 1300 350 Balance -195 430 - Medications Medications: Current Medications Albuterol/Ipratropium (Duoneb 3 Mg/0.5 Mg (3 Ml) Ud) 3 ml IH Q2H PRN PRN Reason: Shortness of Breath Last Admin: 02/17/17 01:35 Dose: 3 ml Docusate Sodium (Colace) 100 mg PO BID [facility] Last Admin: 02/19/17 17:39 Dose: 100 mg Furosemide (Lasix) 20 mg PO DAILY [facility] Last Admin: 02/19/17 09:16 Dose: 20 mg Gabapentin (Neurontin) 300 mg PO QID [facility] PRN Reason: Protocol Last Admin: 02/19/17 21:30 Dose: 300 mg Guaifenesin/Dextromethorphan (Robitussin Dm) 10 ml PO Q4H PRN PRN Reason: Cough Last Admin: 02/19/17 22:05 Dose: 10 ml Hydromorphone HCl (Dilaudid) 2 mg IVP Q4H PRN PRN Reason: Pain, moderate (4-7) Last Admin: 02/19/17 14:48 Dose: 2 mg Sodium Chloride (Sodium Chloride 0.9%) 1,000 mls @ 80 mls/hr IV .[id number] [facility] Last Admin: 02/19/17 20:31 Dose: 80 mls/hr Hydromorphone HCl (Dilaudid-Hp 1 Mg/Ml Traveling Freight Agent) 25 mls @ 0.6 mls/hr IV .Q24H [facility] Last Admin: 02/19/17 11:59 Dose: 0.6 mls/hr Megestrol Acetate (Megace) 200 mg PO DAILY [facility] Last Admin: 02/19/17 09:17 Dose: 200 mg Montelukast Sodium (Singulair) 10 mg PO HS [facility] Last Admin: 02/19/17 21:31 Dose: 10 mg Pantoprazole Sodium (Protonix Ec Tab) 20 mg PO 0600 [facility] Last Admin: 02/19/17 06:09 Dose: 20 mg Polyethylene Glycol (Miralax) 17 gm PO BID PRN PRN Reason: Constipation Potassium Chloride (K-Dur 20 Meq Er Tab) 20 meq PO BRK [facility] Last Admin: 02/19/17 09:17 Dose: 20 meq Tizanidine HCl (Zanaflex) 4 mg PO Q6 PRN PRN Reason: muscle spasm - Labs Labs: 02/19/17 08:00 02/19/17 08:00 Attending/Attestation - Attestation I have personally seen and examined this patient.: Yes I have fully participated in the care of the patient.: Yes I have reviewed all pertinent clinical information, including history, physical exam and plan: Yes Notes (Text): 02/20/17 03:08 Pt's VS are stable O/E of the neck,there is bilateral paracervical tenderness,moves the neck but c/ o pain.(pain on the R side is old according to pt) IMP:S/P fall,pain both shoulders and neck Will await reports of xrays ordered. Also Xrays of Cspine ordered stat 02/20/17 03:10 02/20/17 03:16 02/20/17 03:37
[2017-02-20] MEDS: HYDROmorphone 2 mg/ml ISec IVP PRN ×2 (04:53→11:23)
[2017-02-20] MEDS: Pantoprazole 20 mg EC Tab PO SCH (05:37)
[2017-02-20 07:21] LABS: BILIRUBIN,TOTAL 0.5 mg/dL (0.2-1.3); CALCIUM 8.4 mg/dL (8.4-10.5); POTASSIUM 3.5 mmol/L (3.6-5.0); TOTAL PROTEIN 6.1 g/dL (5.8-8.3)
--- NOTE | 2017-02-20 07:28 | RAD ---
PROCEDURE: Cervical Spine Radiographs. HISTORY: Pain. COMPARISON: Cervical spine MRI dated 11/19/2016. FINDINGS: BONES: C7-T1 vertebral bodies are obscured by the patient's shoulders. Patient unable to position for lateral swimmer's view as well. Straightened upper cervical curvature is again appreciated with anterior spinal fusion including intervertebral discs fusion and anterior compression plate at C5-6 again identified. Posterior osteophytic ridging at C4 inferior endplate is again appreciated though small the at the anterior margins of the endplate. This appears to simulate a spondylolisthesis at C4-5. No displaced fracture is identified and there is no suspicious lytic or blastic change. The odontoid process appears intact. DISC SPACES: As above. SOFT TISSUES: Normal. No prevertebral soft tissue swelling. OTHER FINDINGS: None. IMPRESSION: Straightened upper cervical curvature is appreciate without gross spondylolisthesis or definite fracture identified. C7 and T1 are excluded from this exam as the patient was unable to position for additional swimmer's view initials obscure these bodies in the lateral view. CT of the cervical spine can complete the evaluation. C5-6 anterior spinal fusion again evident.
--- NOTE | 2017-02-20 08:11 | RAD ---
PROCEDURE: Right shoulder dated 02/20/2017 HISTORY: Status post fall. COMPARISON: Correlation made with concurrent radiographs of the left humerus. . Additionally, comparison made with radiographs of the chest 01/15/2017 which partially image the left shoulder. FINDINGS: BONES: No evidence of acute displaced fracture nor dislocation. The osseous structures intact. Degenerative changes left acromioclavicular joint. JOINTS: Mild degenerative changes left acromioclavicular joint with spurring along the inferior margin of the AC joint; rule out impingement syndrome. . . There also mild degenerative changes of the left glenohumeral joint SOFT TISSUES: Normal. OTHER FINDINGS: In situ PICC line is present. Note made of two level ACDF plate. IMPRESSION: Mild DJD left shoulder as described.
--- NOTE | 2017-02-20 08:14 | RAD ---
PROCEDURE: Radiographs of the right humerus. HISTORY: Fall COMPARISON: Correlation made with concurrent radiographs of the right shoulder. FINDINGS: BONES: No evidence of acute displaced fracture nor dislocation. . Slight widening of the right AC joint. . SOFT TISSUES: Normal. OTHER FINDINGS: None. IMPRESSION: No evidence of acute displaced fracture nor dislocation. Slight widening right AC joint.
[2017-02-20 08:17] VITALS: BP 140/89; PULSE 86; TEMP 98.8; O2SAT 94
--- NOTE | 2017-02-20 08:17 | RAD ---
PROCEDURE: Radiographs of the Right Shoulder HISTORY: fall COMPARISON: Correlation made with concurrent radiographs of the right humerus. FINDINGS: BONES: No evidence of acute displaced fracture nor dislocation. Slight widening of the right AC joint again noted. JOINTS: Normal. Glenohumeral and acromioclavicular joints preserved. No osteoarthritis. SOFT TISSUES: Normal. OTHER FINDINGS: In situ left-sided PICC line with tip in the SVC. 2 level ACDF plate noted. Mid -lower cervical region. IMPRESSION: No acute evidence of acute displaced fracture nor dislocation. Mild widening right acromioclavicular joint.
[2017-02-20] MEDS: Potassium Chloride 20 mEq ER Tab PO SCH (09:43)
[2017-02-20] MEDS: Megestrol Acetate 40 mg/ml Cup PO SCH (09:44)
[2017-02-20] MEDS: Sodium Chloride 0.9% 1,000 ML IV SCH (09:45)
[2017-02-20] MEDS ORDERED: Tetanus Immune Globulin 250 Units Inj IM ONE (11:59)
[2017-02-20] MEDS ORDERED: TDAP Vaccine 0.5 mL Syr IM ONE (12:24)
== END 2017-02-20 15:07 | disposition home or self-care (01) | DRG 543 ==
LOC: ED 18:53 → ERH 21:13 → 3RNO 22:09
PROVIDERS: ADMIT Family Medicine; ATTEND Family Medicine
DX: C79.51 Secondary malignant neoplasm of bone (principal); G89.3 Neoplasm related pain (acute) (chronic); C34.11 Malignant neoplasm of upper lobe, right bronchus or lung; E87.6 Hypokalemia; E83.42 Hypomagnesemia; G54.0 Brachial plexus disorders; G62.9 Polyneuropathy, unspecified; J44.9 Chronic obstructive pulmonary disease, unspecified; R63.0 Anorexia; R62.7 Adult failure to thrive; W19.XXXA Unspecified fall, initial encounter; Z92.3 Personal history of irradiation; Z87.891 Personal history of nicotine dependence; Z88.0 Allergy status to penicillin